=== PATIENT | male | born 1955 | race Caucasian/White ===

== ENCOUNTER → 2025-04-10 | Outpatient (CLI) | payer MEDICARE, BC, SELFPAY ==
--- NOTE | 2025-04-10 14:10 | RAD_ITS ---
PROCEDURE: ABDOMEN SINGLE VIEW 04/10/2025 REASON FOR EXAM: CALCULUS OF KIDNEY TECHNIQUE: Abdomen, two views COMPARISON: None FINDINGS: There are a proximally 7 calcific densities overlying the right renal shadow measuring up to 1 cm. There are at least 3 calcifications overlying the left kidney measuring up to 5 mm. No demonstrated calcifications along the expected course of either ureter or within the pelvis. Bowel-gas pattern is unremarkable with retained stool there is no evidence of free air. Bony structures show degenerative change RAD/Abdomen Single View IMPRESSION: Bilateral nephrolithiasis, largest stone in the right kidney measures a proxima lly 1 cm, largest in the left measures 0.5 cm No demonstrated calcifications along the expected course of either ureter Bony structures show degenerative change Reading Location: [id number]
[2025-04-10 15:39] LABS: PSA,Total - Annual Screen 2.38 ng/mL (0.02-4.00)
== END | disposition home or self-care (01) ==
LOC: RAD 13:57
PROVIDERS: PCP Family Medicine; Referring Provider Nurse Practitioner; Visit Provider Nurse Practitioner
DX: N20.0 Calculus of kidney (principal); Z12.5 Encounter for screening for malignant neoplasm of prostate
CPT/HCPCS: 36415; 74018; 84153; G0103

== ENCOUNTER 2025-04-25 10:55 | Day surgery (SDC) | payer MEDICARE, BC, SELFPAY ==
--- NOTE | 2025-04-13 14:43 | PAT.ANESEVAL ---
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 When Was Last Pacemaker Check QUESTION #4 FULL TEXT: You/Your Family Experience fever (hyperthermia) with Anesthesia Last Oral Intake Last Oral intake: Last Oral Intake NPO since Meds taken in AM with sips of water? Meds patient instructed to take am of surgery PONV PONV - mainspring winder and oiler: PONV - mainspring winder and oiler Female No 04/13/25 13:21 HX of Motion Sickness No 04/13/25 13:21 HX of N/V After Surgery No 04/13/25 13:21 Non-Smoker Yes 04/13/25 13:21 Duration of Surgery greater Yes 04/13/25 13:21 than 60 minutes Number of Risk Factors 2 04/13/25 13:21 PONV Score Moderate Risk 04/13/25 13:21 Respiratory Assessment Respiratory Assessment - mainspring winder and oiler: Respiratory Tract Infection Hx - mainspring winder and oiler Hx Respiratory Tract Infection No 04/13/25 13:21 STOP Sleep Apnea STOP Sleep Apnea - mainspring winder and oiler: STOP Sleep Apnea - mainspring winder and oiler Hx Hypertension Yes: CONTROLLED WITH MED 04/13/25 13:21 Hx Sleep Apnea Yes 04/13/25 13:21 CPAP Yes 04/13/25 13:21 BIPAP No 04/13/25 13:21 Do you snore loudly (louder than talking or can be heard Do you often feel tired/ fatigued/ sleepy during daytime? Has anyone observed you stop breathing during sleep? STOP Results Positive 04/13/25 13:21 QUESTION #5 FULL TEXT : Do you snore loudly (louder than talking or can be heard through closed doors)? 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 Specify any problems Hx of Preganancy in last 3 N/A 04/13/25 13:21 Months Nurse Filling Out Transfusion DSCHRIBER 04/13/25 13:21 & Questions: Date: 04/13/25 04/13/25 13:21 Time: :22 04/13/25 13:21 Patient unable to answer at this time (ie. confused, unrespo /Reproduction History /Reproductive History - mainspring winder and oiler: /Reproductive Hx- mainspring winder and oiler Hx Now No 04/13/25 13:21 Gestational Age (in weeks): EDC: Hx Hx Para Hx Section SAB No 04/13/25 13:21 [facility] Medical History (Updated 04/13/25 @ 13:33 by Vidya Maloney) Wears glasses Cancer Prostate disease High cholesterol Back pain Injury of back History of diverticulitis Gastric reflux Asthma Shortness of breath on exertion CPAP (continuous positive airway pressure) dependence Non-smoker History of edema History of stress test Cardiology follow-up encounter Hypertension Home Medications ?Medication ?Instructions ?Recorded ?Last Taken ?Type allopurinol 300 mg tablet 300 mg PO DAILY 04/13/25 Unknown History ascorbic acid (vitamin C) 500 mg 1 g PO DAILY 04/13/25 Unknown History tablet (C-500) atorvastatin 40 mg tablet 40 mg PO QHS 04/13/25 Unknown History cholecalciferol (vitamin D3) 125 125 mcg PO DAILY 04/13/25 Unknown History mcg (5,000 unit) tablet (Vitamin D3) clopidogrel 75 mg tablet 75 mg PO DAILY 04/13/25 Unknown History cyanocobalamin (vitamin B-12) 1,000 mcg PO DAILY 04/13/25 Unknown History 1,000 mcg capsule losartan 25 mg tablet 25 mg PO DAILY 04/13/25 Unknown History niacinamide 500 mg tablet 500 mg PO DAILY 08/15/25 Unknown History pantoprazole 40 mg tablet,delayed 40 mg PO DAILY 04/13/25 Unknown History release ropinirole 1 mg tablet 1 mg PO QHS 04/13/25 Unknown History Allergy/AdvReac Type Severity Reaction Status Date / Time sulfamethoxazole (From AdvReac Intermediate Nausea/Vom/ Verified 04/13/25 13:13 Bactrim) Diarrhea trimethoprim (From Bactrim) AdvReac Intermediate Nausea/Vom/ Verified 04/13/25 13:13 Diarrhea Surgical History (Updated 04/13/25 @ 13:33 by Vidya Maloney) History of cardiac catheterization History of esophagogastroduodenoscopy (EGD) Hx of colonoscopy History of coronary artery stent placement Social History Smoking Status: Never smoker Audit: Pertinent Findings Pertinent Findings EKG Perinent findings: 01/02/2020 Sinus bradycardia. Consider old Anterior infarct Stress test pertinent findings: 02/27/2021 Normal LV ejection fraction. No stress-induced ischemia. Echo (EF%) pertinent findings: 02/27/2021 Normal LV function. LVEF 50% Mild MR Normal Aortic & Tricuspid valve Recommendation Anesthesia Recommendation Anesthesia recommendation: OPTIMIZED for anesthesia
[2025-04-25] VITALS (9 sets, daily range): BP systolic 118–159; BP diastolic 41–85; PULSE 53–65; RESP 16–20; TEMP 35.9–36.3; O2SAT 95–100; BMI 36.1
--- NOTE | 2025-04-25 11:02 | RAD_ITS ---
EXAM: XR Abdomen, 1 View CLINICAL INDICATION: PREOP BILAT KIDNEY STONE TECHNIQUE: Frontal supine view of the abdomen/pelvis. COMPARISON: XR Abdomen dated 04/10/2025 FINDINGS: GASTROINTESTINAL TRACT: Unremarkable. No dilation. ORGANS: Bilateral renal pelvic calculi, largest measuring up to 10 mm. BONES/JOINTS: Unremarkable. No acute fracture. RAD/Abdomen Single View IMPRESSION: Bilateral renal pelvic calculi, largest measuring up to 10 mm. Reading Location: [id number]
[2025-04-25] MEDS: Lactated Ringers 1,000 ML 15 ML IV (12:12)
--- NOTE | 2025-04-25 12:40 | PCM.PRE.AN2 ---
ASA Classification* ASA Classification ASA Classification: 3 Assessment & Plan Anesthesia* Anesthesia Assessment Anesthesia Assessment: Discussed sedation and/or anesthesia options, risks, benefits, and alternatives with patient/parents/legal guardian/POA. Questions invited. The patient/parents/legal guardian/POA seems to understand and agrees to proceed with anesthesia plan. Reviewed the physical assessment, medical history, allergy history and patient home medications list prior to surgery/procedure/anesthetic and documented any changes. Performed airway and anesthesia risk assessments. 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 When Was Last Pacemaker Check QUESTION #4 FULL TEXT: You/Your Family Experience fever (hyperthermia) with Anesthesia Last Oral Intake Last Oral intake: Last Oral Intake NPO since 06:00 04/25/25 12:03 Meds taken in AM with sips of Yes 04/25/25 12:03 water? Meds patient instructed to LOSSARTAN,PROTONIX 04/25/25 12:03 take am of surgery PONV PONV - digital art director: PONV - digital art director Female No 04/13/25 13:21 HX of Motion Sickness No 04/13/25 13:21 HX of N/V After Surgery No 04/13/25 13:21 Non-Smoker Yes 04/13/25 13:21 Duration of Surgery greater Yes 04/13/25 13:21 than 60 minutes Number of Risk Factors 2 04/13/25 13:21 PONV Score Moderate Risk 04/13/25 13:21 Height & Weight Height & Weight: Anesthesia: Height & Weight Height 5 ft 9 in 04/25/25 12:03 Weight: 111 kg 04/25/25 12:03 Body Mass Index (BMI) 36.1 04/25/25 12:03 Respiratory Assessment Respiratory Assessment - digital art director: Respiratory Tract Infection Hx - digital art director Hx Respiratory Tract Infection No 04/13/25 13:21 STOP Sleep Apnea STOP Sleep Apnea - digital art director: STOP Sleep Apnea - digital art director Hx Hypertension Yes: CONTROLLED WITH MED 04/13/25 13:21 Hx Sleep Apnea Yes 04/13/25 13:21 CPAP Yes 04/13/25 13:21 BIPAP No 04/13/25 13:21 Do you snore loudly (louder than talking or can be heard Do you often feel tired/ fatigued/ sleepy during daytime? Has anyone observed you stop breathing during sleep? STOP Results Positive 04/13/25 13:21 QUESTION #5 FULL TEXT : Do you snore loudly (louder than talking or can be heard through closed doors)? 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 Specify any problems Hx of Preganancy in last 3 N/A 04/13/25 13:21 Months Nurse Filling Out Transfusion DSCHRIBER 04/13/25 13:21 & Questions: Date: 04/13/25 04/13/25 13:21 Time: 13:22 04/13/25 13:21 Patient unable to answer at this time (ie. confused, unrespo /Reproduction History /Reproductive History - digital art director: /Reproductive Hx- digital art director Hx Now No 04/13/25 13:21 Gestational Age (in weeks): EDC: Hx Hx Para Hx Section SAB No 04/13/25 13:21 Active Medications Active Medications: Current Medications Generic Name Dose Route Start Last Admin Trade Name Freq PRN Reason Stop Dose Admin Cefazolin Sodium 2 gm/ Sodium 110 mls @ 200 mls/hr 04/25/25 13:00 Chloride IV 04/25/25 13:32 INTRAOP ONE Lactated Ringer's 1,000 mls @ 15 mls/hr 04/25/25 11:15 04/25/25 12:12 IV 15 mls/hr .Q48H RAYA Administration PFSH Medical History (Updated 04/13/25 @ 13:33 by Vidya Maloney) Wears glasses Cancer Prostate disease High cholesterol Back pain Injury of back History of diverticulitis Gastric reflux Asthma Shortness of breath on exertion CPAP (continuous positive airway pressure) dependence Non-smoker History of edema History of stress test Cardiology follow-up encounter Hypertension Home Medications ?Medication ?Instructions ?Recorded ?Last Taken ?Type allopurinol 300 mg tablet 300 mg PO DAILY 04/13/25 04/24/25 History ascorbic acid (vitamin C) 500 mg 1 g PO DAILY 04/13/25 04/24/25 History tablet (C-500) atorvastatin 40 mg tablet 40 mg PO QHS 04/13/25 04/24/25 History cholecalciferol (vitamin D3) 125 125 mcg PO DAILY 04/13/25 04/24/25 History mcg (5,000 unit) tablet (Vitamin D3) clopidogrel 75 mg tablet 75 mg PO DAILY 04/13/25 04/18/25 History cyanocobalamin (vitamin B-12) 1,000 mcg PO DAILY 04/13/25 04/24/25 History 1,000 mcg capsule losartan 25 mg tablet 25 mg PO DAILY 04/13/25 04/25/25 History niacinamide 500 mg tablet 500 mg PO DAILY 04/13/25 04/24/25 History pantoprazole 40 mg tablet,delayed 40 mg PO DAILY 04/13/25 04/25/25 History release ropinirole 1 mg tablet 1 mg PO QHS 04/13/25 04/24/25 History Allergy/AdvReac Type Severity Reaction Status Date / Time sulfamethoxazole (From AdvReac Intermediate Nausea/Vom/ Verified 04/25/25 12:00 Bactrim) Diarrhea trimethoprim (From Bactrim) AdvReac Intermediate Nausea/Vom/ Verified 04/25/25 12:00 Diarrhea Surgical History (Updated 04/13/25 @ 13:33 by Vidya Maloney) History of cardiac catheterization History of esophagogastroduodenoscopy (EGD) Hx of colonoscopy History of coronary artery stent placement Social History Smoking Status: Never smoker Review of Systems (Anesthesia) ROS Narrative System reviewed and no additional complaints, except as documented.
[2025-04-25] MEDS: Lactated Ringers 1,000 ML 1000 ML IV (15:43)
[2025-04-25] MEDS: Midazolam 2 MG/2 ML Syringe IV (15:43)
--- NOTE | 2025-04-25 15:47 | DCINST_ITS ---
Discharge Instructions DC O2, CPAP, BIPAP needs Home O2 Discharge instructions: No Dressing / Incision Discharge Activity: Return to Normal Activity and May Not Drive (while taking narcotic pain medications.) Dressing / Incision Call your doctor if you observe: Fever of 101 or Higher and Uncontrolled pain Follow Up Care Please Follow Up With: Harjit Lam MD When: Call [phone] for an appointment Test Results: Test results from this visit will be discussed in further detail at your follow- up appointment, if applicable. Discharge Plan Admission Primary Reason for Your Visit: ESWL Attending Provider: Harjit Lam Primary Care Provider: Jarad Zamudio Instructions Print Language: Greenlandic Discharge Orders/Prescriptions Prescriptions: New ciprofloxacin HCl [Cipro] 500 mg tablet 500 mg PO BID Qty: 10 0RF tamsulosin [Flomax] 0.4 mg capsule 0.4 mg PO DAILY Qty: 14 0RF phenazopyridine [Pyridium] 100 mg tablet 100 mg PO TID Qty: 20 0RF oxycodone 5 mg tablet 5 mg PO Q6H PRN (Reason: pain) 3 Days Qty: 14 0RF Continued atorvastatin 40 mg tablet 40 mg PO QHS pantoprazole 40 mg tablet,delayed release (DR/EC) 40 mg PO DAILY ropinirole 1 mg tablet 1 mg PO QHS losartan 25 mg tablet 25 mg PO DAILY allopurinol 300 mg tablet 300 mg PO DAILY niacinamide 500 mg tablet 500 mg PO DAILY cyanocobalamin (vitamin B-12) 1,000 mcg capsule 1,000 mcg PO DAILY ascorbic acid (vitamin C) [C-500] 500 mg tablet 1 g PO DAILY cholecalciferol (vitamin D3) [Vitamin D3] 125 mcg (5,000 unit) tablet 125 mcg PO DAILY Held clopidogrel 75 mg tablet 75 mg PO DAILY Hold Instructions: Resume on 05/02/25. Referrals / Follow Up: Jarad Zamudio MD [Primary Care Provider] - Harjit Lam MD [Med Staff - Active Staff] - Disposition Disposition (needs filled in before D/C Order can be placed): Home, Self Care
[2025-04-25] MEDS: fentaNYL 100 MCG/2 ML Ampul IV (15:48)
[2025-04-25] MEDS: Lidocaine 1% (5 ml sdv) 5 ML Vial IV (15:48)
[2025-04-25] MEDS: Cefazolin 1 GM/5 ML Vial 2 GM IV (15:50)
--- NOTE | 2025-04-25 16:20 | PCM.OPRPT ---
Operative Report (Standard) Operative Information Date of Procedure: 04/25/25 Pre-Operative Diagnosis: Right kidney stones Post-Operative Diagnosis: same Surgery/Procedure Performed: Cystoscopy right stent placement and right ESWL civil clerk: No Type of Anesthesia: General RN Documented Start/Stop Times: Operation Date: 04/25/25 13:00 Case Time Into Pre-Op 04/25/25 11:12 Out of Pre-Op 04/25/25 15:38 Anesthesia Start 04/25/25 15:42 Into Room 04/25/25 15:42 Procedure Start 04/25/25 15:56 Procedure Start Time: 15:56 Procedure Stop Time: 16:36 Select all DRAINS/GRAFTS/IMPLANTS that apply: Drains Drain details: right stent Estimated Blood Loss: 0 Specimen collected: No Description of surgery: Patient presents to the hospital for treatment of a kidney stone with shockwave lithotripsy. In the preoperative area and x-ray was done to confirm the location of the stone. The x-ray was reviewed and the stone location was reviewed. In the preoperative setting I spoke with the patient regarding the treatment of the stone how the treatment would be conducted and the expectations after surgery. The patient understands there is a risk of bleeding and infection. Also discussed the very rare risk of hematoma or damage to the kidney. We also discussed the risk that the shockwave machine will fail to break the stone adequately and that the patient may need other surgical procedures. I also discussed the possibility that the patient may need a stent after the procedure. After reviewing the procedure with the patient, the patient is signed the consent form all the patient's questions were addressed and was taken back to the operating room for treatment of a kidney stone. Patient was taken back to the operating room, the patient was identified by the nursing staff, I identified the side of the treatment and the patient side of treatment had been marked by my initials. The urethra and genitals were prepped and draped in usual sterile fashion. Using a 21 Nauruan rigid cystourethroscope the entire length of the urethra was normal then went into the bladder. Identified the trigone the left and right ureteral orifice. I then cannulated the right ureteral orifice and advanced a wire up into the kidney. I then backloaded a 5 Nauruan open ended catheter over the wire and injected contrast to delineate the anatomy. After the retrograde was performed I then used fluoroscopic images and guidance to advanced a wire up into the kidney and over the 0.038 glidewire I advanced a 6 Nauruan by 26 cm double pigtail stent. I then pulled the 0.038 Glidewire off and the stent coiled in the kidney bladder good position. The bladder was then drained. We confirmed the position of the stent by fluoroscopy. The patient underwent general anesthetic and was placed supine on the lithotripter table. I then used fluoroscopy to identify the stone on the right kidney. I then positioned the patient under the lithotripter and I used triangulation technique to identify the location of the stone and then I made sure that the stone was engaged in the F2 focal point of F2 Donier lithoprior machine. Once the patient was positioned appropriately and the stone was identified and placed in the F2 focal point of the lithotripter machine I then proceeded with shockwave lithotripsy. In the beginning the shockwave was delivered at a rate of 90 shocks per minute, anesthesia monitored the EKG for any ectopy. The power was slowly increased to 5 kV and subsequently at the 7 kV. I then proceeded with the treatment with shock wave therapy and around during the treatment to make sure the stone stayed in the F2 focal point during the entire treatment and after 3000 shockwaves were delivered to the stone under fluoroscopic guidance the treatment was completed. The patient was given instructions to call the office to make an a follow-up appointment with an x-ray to evaluate the success of the treatment, patient understands that its possible the stones may need another procedure. At this point the patient's anesthetic was reversed patient was extubated and taken back to the PACU in stable condition. Surgical Findings: stone broke up well could still see many fragments, and right stent Complications Complications: No Admit VTE Documentation VTE Present on Admission: No VTE Mechan Device Prophylaxis: SCD's VTE Pharm Prophylaxis ordered?: No
--- NOTE | 2025-04-25 16:47 | PCM.POST.ANE ---
Anesthesia: Postop Eval I Current Vital Signs Temperature: 96.6 F Pulse Rate: 65 Blood Pressure: 159/77 Respiratory Rate: 20 Pulse Ox: 99 Oxygen Delivery Method: Room Air Assessment Airway patent: Yes Spontaneous unlabored respirations: Yes Mental status: Awake nausea: No Vomiting: No Anesthesia Complication: No Fluid Hydration Crystalloid volume administer (ml): 900 Total IV fluid infused: 900 Progress Note Anesthesia document: Postop Eval 1 completed: Yes
--- NOTE | 2025-04-25 18:11 | POSTOPAN2_ITS ---
Anesthesia Postop Eval I Sum Postop Eval Completion status Anesthesia document: Postop Eval 1 completed: Yes Anesthesia Postop Eval I Summary Anesthesia Postop Eval I Summary: Anesthesia Postop Eval I: Assessment Summary Airway patent Yes 04/25/25 16:48 [email or web address] Spontaneous unlabored Yes 04/25/25 16:48 [email or web address] respirations Mental status Awake 04/25/25 16:48 [email or web address] nausea No 04/25/25 16:48 [email or web address] Vomiting No 04/25/25 16:48 [email or web address] Anesthesia Postop Eval I: Fluid Summary Crystalloid volume administer 900 04/25/25 16:48 [email or web address] (ml) Colloids volume administered ( ml) Blood Product volume administered (ml) Total IV fluid infused 900 04/25/25 16:48 [email or web address] Anesthesia Postop Eval I: Summary Notes Anesthesia Complication No 04/25/25 16:48 [email or web address] Anesthesia Complication Comment: Post-operative progress note Anesthesia: Postop Eval II Evaluation Mental status: Awake Pain Level: 0 nausea: No Vomiting: No Complications Anesthesia Complication: No
--- NOTE | 2025-04-25 18:11 | PCM.POSTANE2 ---
Anesthesia Postop Eval I Sum Postop Eval Completion status Anesthesia document: Postop Eval 1 completed: Yes Anesthesia Postop Eval I Summary Anesthesia Postop Eval I Summary: Anesthesia Postop Eval I: Assessment Summary Airway patent Yes 04/25/25 16:48 AUTOMATION DESIGN [email or web address] Spontaneous unlabored Yes 04/25/25 16:48 AUTOMATION DESIGN [email or web address].[email or web address] respirations Mental status Awake 04/25/25 16:48 AUTOMATION DESIGN [email or web address] nausea No 04/25/25 16:48 AUTOMATION DESIGN ENGINEER.[email or web address] Vomiting No 04/25/25 16:48 AUTOMATION DESIGN [email or web address].[email or web address] Anesthesia Postop Eval I: Fluid Summary Crystalloid volume administer 900 04/25/25 16:48 AUTOMATION DESIGN [email or web address] (ml) Colloids volume administered ( ml) Blood Product volume administered (ml) Total IV fluid infused 900 04/25/25 16:48 AUTOMATION DESIGN [email or web address] Anesthesia Postop Eval I: Summary Notes Anesthesia Complication No 04/25/25 16:48 AUTOMATION DESIGN [email or web address] Anesthesia Complication Comment: Post-operative progress note Anesthesia: Postop Eval II Evaluation Mental status: Awake Pain Level: 0 nausea: No Vomiting: No Complications Anesthesia Complication: No
== END 2025-04-25 18:09 | disposition home or self-care (01) ==
LOC: SDC 10:57 → AC 11:06
PROVIDERS: PCP Family Medicine; Referring Provider Urology; Visit Provider Urology
PROC: (CPT 50590; principal; 2025-04-25 12:50)
DX: N13.2 Hydronephrosis with renal and ureteral calculous obstruction (principal); N40.1 Benign prostatic hyperplasia with lower urinary tract symptoms; R39.14 Feeling of incomplete bladder emptying; I10 Essential (primary) hypertension; Z95.5 Presence of coronary angioplasty implant and graft; Z79.02 Long term (current) use of antithrombotics/antiplatelets; Z79.899 Other long term (current) drug therapy
CPT/HCPCS: 52332; 00910; 74018; C1769; C2617; J2405

== ENCOUNTER 2025-05-05 09:48 | Observation (INO) | payer MEDICARE, BC, SELFPAY ==
[2025-05-05] VITALS (13 sets, daily range): BP systolic 120–160; BP diastolic 60–83; PULSE 62–82; RESP 16–18; TEMP 36–37; O2SAT 95–100; BMI 36.0
--- OUTSIDE RECORDS SUMMARY | 2025-05-05 04:25 | XMS RPT_ITS | CCD ---
Author Organization [facility] CliniSyga Care Team Providers Care Assistant Professor Of German Name Role Phone Aramis Beaulieu Unavailable BARRETO, TRACE ETIENNE Unavailable Unavailable EBAULIEU, CHRISTOPHER OSCAR Unavailable Unavaila ble BARRETO, TRACE ETIENNE Unavailable Unavailable BEAULIEU, CHRISTOPHER OSCAR Unavailable Unavaila ble BARRETO, TRACE ETIENNE Unavailable Unavailable BEAULIEU, CHRISTOPHER OSCAR Unavailable Unavaila ble BEAULIEU, CHRISTOPHER Unavailable Unavailable BEAULIEU, CHRISTOPHER Unavailable Unavailable JUSTUS Unavailable Unavailable JUSTUS Unavailable Unavailable BEAULIEU, CHRISTOPHER Unavailable Unavailable Beaulieu, Christopher Unavailable Unavailable Beaulieu, Christopher Unavailable Unavailable Barreto, Trace Unavailable Unavailable Barreto, Trace Unavailable Unavailable Beaulieu, Christopher Unavailable Unavailable Beaulieu, Christopher Unavailable Unavailable Ivanauskas, Saulius Unavailable Unavailable Ivanauskas, Saulius Unavailable Unavailable Beaulieu, Christopher Unavailable Unavailable Davi, Gagan Bin Unavailable Unavailable Davi, Gagan Bin Unavailable Unavailable Bazan, Isabela W Unavailable Unavailable Beaulieu, Christopher Unavailable Unavailable Beaulieu, Christopher Unavailable Unavailable Ivanauskas, Saulius Unavailable Unavailable Ivanauskas, Saulius Unavailable Unavailable Bazan, Isabela W Unavailable Unavailable Bazan, Isabela W Unavailable Unavailable Beaulieu, Christopher Unavailable Unavailable Bazan, Isabela W Unavailable Unavailable Bazan, Isabela W Unavailable Unavailable Beaulieu, Christopher Unavailable Unavailable Beaulieu, Christopher Unavailable Unavailable Bazan, Isabela W Unavailable Unavailable Bazan, Isabela W Unavailable Unavailable Beaulieu, Christopher Unavailable Unavailable Beaulieu, Christopher Unavailable Unavailable Bazan, Isabela W Unavailable Unavailable Bazan, Isabela W Unavailable Unavailable Beaulieu, Christopher Unavailable Unavailable Bazan, Isabela W Unavailable Unavailable Beaulieu, Christopher Unavailable Unavailable Bazan, Isabela W Unavailable Unavailable Bazan, Isabela W Unavailable Unavailable Beaulieu, Christopher Unavailable Unavailable Bazan, Isabela W Unavailable Unavailable Beaulieu, Christopher Unavailable Unavailable Bazan, Isabela W Unavailable Unavailable Bazan, Isabela W Unavailable Unavailable Beaulieu, Christopher Unavailable Unavailable Bazan, Isabela W Unavailable Unavailable Beaulieu, Christopher Unavailable Unavailable Beaulieu, Christopher Unavailable Unavailable Beaulieu, Christopher Unavailable Unavailable Beaulieu, Christopher Unavailable Unavailable Beaulieu, Christopher Unavailable Unavailable Pandrangi, Esa Unavailable Unavailable Pandrangi, Esa Unavailable Unavailable Family Physician Unavailable Unavailable Celine vailable Family Physician Unavailable Unavailable Celine vailable PANDRANGI, ESA Unavailable Unavailable Rey, Jarad Primary Care Provider Robb Jarad Primary Care Provider Robb SKY Jarad Primary Care Provider Robb SKY Jarad Primary Care Provider Balta Reyo Unavailable Robb SKY Jarad Primary Care Provider Robb SKY Jarad Primary Care Provider Aramis Beaulieu MD Primary Care Provider JUSTIN OROZCO Admitting Unavailable ARAMIS BEAULIEU Primary Care Unavaila ble REY, JARAD Primary Care Unavailable YASMANY SMITH Admitting Unavailable YASMANY SMITH Attending Unavailable Robb SKY Jarad Primary Care Provider REY, JARAD Primary Care Unavailable REY, JARAD Primary Care Unavailable Robb SKY Jarad Primary Care Provider BAZANISABELA Gil W Attending Unavailable REY, JARAD Primary Care Unavailable REY, JARAD Primary Care Unavailable BAZANISABELA W Attending Unavailable REY, JARAD Primary Care Unavailable BAZANISABELA W Attending Unavailable REY, JARAD Primary Care Unavailable BAZAN, ISABELA W Attending Unavailable REY, JARAD Primary Care Unavailable BAZAN, ISABELA W Attending Unavailable REY, JARAD Primary Care Unavailable BAZAN, ISABELA W Attending Unavailable REY, JARAD Primary Care Unavailable ISABELA BAZAN Attending Unavailable REY, JARAD Primary Care Unavailable Robb SKY, [facility] Primary Care Provider REY, JARAD Primary Care Unavailable ZAK ALVAREZ Attending Unavailable ISABELA BAZAN Referring Unavailable REY, JARAD Primary Care Unavailable REY, JARAD Referring Unavailable REY, JARAD Primary Care Unavailable KAYLYNN ASHTON Attending Unavailable KAYLYNN ASHTON Referring Unavailable REY, JARAD Primary Care Unavailable Robb SKY, Dr. Abraham Primary Care Provider [phone] [place] Attending Provider [phone] [place], Melba Referring Provider [phone] [place] SKY, Dr. Harjit Simms Attending Provider [place] SKY, Dr. Harjit Simms Referring Provider Rey, Jarad Primary Care Unavailable Harjit Lam Referring Unavailable Harjit Lam Attending Unavailable [place], Melba Attending Unavailable Rey, Jarad Primary Care Unavailable [place], Melba Referring Unavailable Allergies Allergy Classification Reported Allergen(s) Allergy Type Date of Onset Reaction(s) Facility (1 source) No Known Allergies; Translations: [No Known Allergies] Propensity to adverse reactions to drug (disorder) [facility] Repository (1 source) No Known Medication Allergies; Translations: [No Known Medication Allergies] Propensity to adverse reactions to drug (disorder) [facility] Repository (2 sources) Sulfamethoxazole / Trimethoprim Drug Allergy 04-11-20 25 Nausea Only, Other, Drowsiness [facility] (2 sources) Sulfamethoxazole Drug Allergy 04-13-20 25 Nausea/Vom/[facility] (2 sources) Trimethoprim Drug Allergy 04-13-20 25 Nausea/Vom/[facility] (1 source) Sulfamethoxazole Drug Allergy 04-25-20 [facility] Repository (1 source) Trimethoprim Drug Allergy 04-25-20 [facility] Repository Medications Current Medications Medication Drug Class(es) Dates Sig (Normalized) Sig (Original) acetaminophen 325 mg / oxyCODONE hydrochloride 5 mg oral tablet (1 source) Opioid Agonist Start: 07-02-2021 End: 07-05-2021 take 1 tablet by mouth every six hours as needed for pain oxyCODONE-acetami nophen (PERCOCET) 5-325 MG per tablet Indications: Fall from ladder, initial encounter , Lumbar paraspinal muscle spasm Take 1 tablet by mouth every 6 hours as needed for Pain for up to 3 days. 12 tablet 0 07/02/2021 07/05/2021 Active [id number] actuat albuterol 0.09 mg/actuat metered dose inhaler (16 sources) beta2-Adrenergic Agonist Start: 06-11-2023 Ventolin HFA 90 mcg/actuation inhaler 06/11/2023 Active Start: 06-11-2023 take 2 puff(s) by in halation four times daily as needed for wheezing albuterol sulfate HFA (VENTOLIN HFA) 108 (90 Base) MCG/ACT inhaler Indications: Mild intermittent asthma without complication Inhale 2 puffs into the lungs 4 times daily as needed for Wheezing 18 g 06/11/2023 Active allopurinol 300 mg oral tablet (20 sources) Xanthine Oxidase Inhibitor Start: 06-11-2023 allopurinol (Zylopri m) 300 mg tablet 02/06/2024 Active Start: 05-25-2015 allopurinol (Z YLOPRIM) 300 MG tablet Indications: Gout, unspecified cause, unspecified chronicity, unspecified site TAKE 1 TABLET DAILY 90 tablet 3 03/09/2022 Active ascorbic acid 500 mg oral tablet (19 sources) Start: 04-13-2025 take 1 tablet by mouth once daily Ascorbic Acid (Vitamin C) (C-500) 500 mg tablet Active 1 g PO DAILY April 13, 2025 12:00am vitamin C (ASCOR BIC ACID) 500 MG tablet Take 1 tablet by mouth Active vitamin C (ASCOR BIC ACID) 500 MG tablet Take 500 mg by mouth 0 Active aspirin 81 mg delayed release oral tablet (16 sources) Nonsteroidal Anti-inflammatory Drug take 1 tablet by mouth once daily aspirin 81 MG EC tablet Take 1 tablet by mouth daily Active atorvastatin 40 mg oral tablet (20 sources) HMG-CoA Reductase Inhibitor Start: 05-17-20 atorvastatin (Lipitor) 40 mg tablet 05/17/2023 Active Start: 03-09-2022 atorvastatin ( LIPITOR) 20 MG tablet Indications: Coronary artery disease involving [place] coronary artery of [place] heart without angina pectoris TAKE 1 TABLET NIGHTLY 90 tablet 3 03/09/2022 Active Start: 06-12-2021 atorvastatin ( LIPITOR) 20 MG tablet Indications: Coronary artery disease involving [place] coronary artery of [place] heart without angina pectoris TAKE 1 TABLET NIGHTLY 90 tablet 3 06/12/2021 Active Start: 06-10-2020 atorvastatin ( LIPITOR) 20 MG tablet Indications: Coronary artery disease involving [place] coronary artery of [place] heart without angina pectoris TAKE 1 TABLET NIGHTLY 90 tablet 3 06/10/2020 Active Start: 2018 take 1 tablet by cuco th once daily atorvastatin (LIPITOR) 20 MG tablet Take 1 tablet by mouth nightly 90 tablet 3 2018 Active Start: 05-04-2017 atorvastatin ( LIPITOR) 20 MG tablet TAKE 1 TABLET DAILY 90 tablet 0 05/04/2017 Active Start: 06-04-2015 End: 05-05-2016 take 1 tablet by mouth once daily atorvastatin (LIPITOR) 20 MG tablet Take 1 tablet (20 mg total) by mouth daily. 90 tablet 3 06/04/2015 05/05/2016 Discontinued (Reorder (Suppress CancelRx Message to Pharmacy)) B Complex Vitamins (VITAMIN B COMPLEX PO) (16 sources) B Complex Vitami ns (VITAMIN B COMPLEX PO) Take 1 tablet by mouth Active B Complex Vitami ns (VITAMIN B COMPLEX PO) Take 1 tablet by mouth 0 Active calcium chloride 0.0014 meq/ml / potassium chloride 0.004 meq/ml / sodium chloride 0.103 meq/ml / sodium lactate 0.028 meq/ml injectable solution (1 source) Start: 09-14-2019 lactated ringers infusion cephalexin 500 mg oral capsule (4 sources) Cephalosporin Antibacterial Start: 11-09-2023 End: 11-19-2023 take 1 capsule by mouth four times daily cephalexin (Keflex) 500 mg capsule Indications: Urinary retention , Urinary tract infection with hematuria, site unspecified Take 1 capsule (500 mg) by mouth 4 times a day for 10 days. 40 capsule 0 11/09/2023 11/19/2023 Active cholecalciferol 0.125 mg oral tablet (19 sources) Vitamin D Start: 04-13-2025 take 1 tablet by mouth once daily Cholecalciferol (Vitamin D3) (Vitamin D3) 125 mcg (5,000 unit) tablet Active 125 ug PO DAILY April 13, 2025 12:00am Cholecalciferol (VITAMIN D3) 5000 units CAPS Take 1 capsule by mouth Active take 5 tablets by mouth once jose maria ly cholecalciferol, vitamin D3, 1,000 unit tablet Take 5,000 Units by mouth daily. Active ciprofloxacin 500 mg oral tablet (4 sources) Quinolone Antimicrobial Start: 04-25-2025 take 1 tablet by mouth twice daily Ciprofloxacin Hcl (Cipro) 500 mg tablet Active 500 mg PO TWICE A DAY 10 0 April 25, 2025 12:00am Start: 03-25-2025 End: 03-26-2025 400 mg, intravenous, at 200 mL/hr, Administer over 60 Minutes, Once, On 03/25/25 at 2330, For 1 dose, premix bag, Dosing of this medication varies based on severity of illness. Does this patient have sepsis or concern for sepsis (probable or documented infection plus systemic manifestations of infection)? Yes, Suspected Indication (Select all that apply): Urinary Tract Infection, Type of Therapy: Empiric, Type of Urinary Tract Infection: Uncomplicated, Indications: Urinary Tract Infection Start: 03-25-2025 End: 04-01-2025 take 1 tablet by mouth twice daily ciprofloxacin (Cipro) 500 mg tablet Indications: Hemorrhagic cystitis Take 1 tablet (500 mg) by mouth 2 times a day for 7 days. 14 tablet 03/25/2025 04/01/2025 Active Start: 11-01-2023 End: 11-04-2023 take 1 tablet by mouth twice daily ciprofloxacin (Cipro) 250 mg tablet Indications: Hematuria, unspecified type Take 1 tablet (250 mg) by mouth 2 times a day for 3 days. 6 tablet 0 11/01/2023 11/04/2023 Active clopidogrel 75 mg oral tablet (20 sources) [id number] Platelet Inhibitor Start: 08-04-2024 take 1 tablet by mouth once daily Clopidogrel 75 mg tablet Active 75 mg PO DAILY April 13, 2025 12:00am On Hold: Resume on 05/02/25. Start: 06-11-2023 clopidogrel (P LAVIX) 75 MG tablet Indications: Coronary artery disease involving [place] coronary artery of [place] heart without angina pectoris TAKE 1 TABLET DAILY 90 tablet 3 06/11/2023 Active Start: 03-09-2022 clopidogrel (P LAVIX) 75 MG tablet Indications: Coronary artery disease involving [place] coronary artery of [place] heart without angina pectoris TAKE 1 TABLET DAILY 90 tablet 3 03/09/2022 Active Start: 06-12-2021 clopidogrel (P LAVIX) 75 MG tablet Indications: Coronary artery disease involving [place] coronary artery of [place] heart without angina pectoris TAKE 1 TABLET DAILY 90 tablet 3 06/12/2021 Active Start: 06-10-2020 clopidogrel (P LAVIX) 75 MG tablet Indications: Coronary artery disease involving [place] coronary artery of [place] heart without angina pectoris TAKE 1 TABLET DAILY 90 tablet 3 06/10/2020 Active Start: 2018 take 1 tablet by cuco th once daily clopidogrel (PLAVIX) 75 MG tablet Take 1 tablet by mouth daily 90 tablet 3 2018 Active Start: 05-13-2017 take 1 tablet by cuco th once daily clopidogrel (PLAVIX) 75 mg tablet Take 1 (one) tablet (75 mg total) by mouth daily. 90 tablet 3 05/13/2017 Active Start: 06-17-2015 End: 05-17-2016 take 1 tablet by mouth once daily clopidogrel (PLAVIX) 75 mg tablet Take 1 tablet (75 mg total) by mouth daily. 90 tablet 3 06/17/2015 05/17/2016 Discontinued (Reorder (Suppress CancelRx Message to Pharmacy)) Start: 03-15-2015 End: 06-10-2015 clopidogrel (PLAVIX) 75 mg t ablet CPAP Machine MISC (20 sources) Start: 03-06-2022 CPAP Machine M ISC Indications: BUCK on CPAP by Does not apply route CPAP nightly at 12 cm H20 with heated humidification via nasal airfit f30i mask in large with chin strap. STAT severe sleep apnea 1 each 03/06/2022 Active Start: 03-06-2022 CPAP Machine M ISC Indications: BUCK on CPAP by Does not apply route CPAP nightly at 12 cm H20 with heated humidification via nasal airfit f30i mask in large with chin strap. STAT severe sleep apnea 1 each 0 03/06/2022 Active CPAP Machine MIS C by Does not apply route Active CPAP Machine MIS C by Does not apply route 0 Active cyclobenzaprine hydrochloride 10 mg oral tablet (5 sources) Muscle Relaxant Start: 12-16-2023 End: 12-26-2023 take 0.5 tablet by mouth three times daily cyclobenzaprine (Flexeril) 10 mg tablet Indications: History of kidney stones Take 0.5 tablets (5 mg) by mouth 3 times a day for 10 days. 15 tablet 12/16/2023 Active diazePAM 5 mg oral tablet (1 source) Benzodiazepine Start: 06-25-2021 End: 07-05-2021 take 1 tablet by mouth every six hours as needed for muscle spasms diazePAM (VALIUM) 5 MG tablet Indications: Fall from ladder, initial encounter , Lumbar paraspinal muscle spasm Take 1 tablet by mouth every 6 hours as needed (muscle spasm) for up to 10 days. 16 tablet 0 06/25/2021 07/05/2021 Active diclofenac sodium 50 mg delayed release oral tablet (5 sources) Nonsteroidal Anti-inflammatory Drug Start: 06-12-2021 diclofenac (VOLTAREN) 50 MG EC tablet Indications: Acute pain of both knees Take 1 tablet by mouth every 48 hours as needed for Pain 30 tablet 0 06/12/2021 Active 24 hr dilTIAZem hydrochloride 120 mg extended release oral capsule (8 sources) Calcium Channel Deep Start: 07-11-2020 dilTIAZem (CARTIA XT) 120 MG extended release capsule Indications: PVC (premature ventricular contraction) TAKE 1 CAPSULE DAILY 90 capsule 3 07/11/2020 Active Start: 05-14-2020 CARTIA XT 120 MG extended release capsule Indications: PVC (premature ventricular contraction) TAKE 1 CAPSULE DAILY 90 capsule 3 05/14/2020 Active Start: 06-07-2019 take 1 capsule by mo ut once daily diltiazem (CARDIZEM CD) 120 MG extended release capsule Indications: PVC (premature ventricular contraction) Take 1 capsule by mouth daily 90 capsule 3 06/07/2019 Active Start: 05-03-2019 take 1 capsule by mo uth once daily diltiazem (CARDIZEM CD) 120 MG extended release capsule Indications: PVC (premature ventricular contraction) Take 1 capsule by mouth daily 30 capsule 3 05/03/2019 Active doxycycline hyclate 100 mg oral capsule (2 sources) Tetracycline-class Drug Start: 06-10-2021 doxycycline hyclate (VIBRAMYCIN) 100 MG capsule fluorouracil 50 mg/ml topical cream (2 sources) Nucleoside Metabolic Inhibitor Start: 04-24-2024 fluorouracil (EFUDEX) 5 % cream APPLY CREAM TO THE AFFECTED AREAS OF THE SCALP AND LEFT MU-ISM TWICE DAILY FOR 3 WEEKS 04/24/2024 Active hyoscyamine sulfate 0.12 mg / methenamine 81.6 mg / methylene blue 10.8 mg / sodium phosphate, monobasic 40.8 mg oral tablet (9 sources) Oxidation-Reduction Agent Start: 11-10-2023 methen-sod phos-meth blue-hyos (Urogesic-Blue) 81.6-40.8-0.12 mg tablet Indications: Dysuria Take 1 tab BID 60 tablet 3 11/10/2023 Active ibuprofen 600 mg oral tablet (4 sources) Nonsteroidal Anti-inflammatory Drug Start: 06-25-2021 take 1 tablet by mouth every six hours as needed for pain ibuprofen (IBU) 600 MG tablet Take 1 tablet by mouth every 6 hours as needed for Pain 120 tablet 0 06/25/2021 Active losartan potassium 25 mg oral tablet (20 sources) Angiotensin 2 Receptor Deep Start: 06-11-2023 losartan (Cozaar) 25 mg tablet 02/06/2024 Active Start: 03-09-2022 losartan (COZA AR) 25 MG tablet Indications: Coronary artery disease involving [place] coronary artery of [place] heart without angina pectoris TAKE 1 TABLET DAILY 90 tablet 3 03/09/2022 Active Start: 06-12-2021 losartan (COZA AR) 25 MG tablet Indications: Coronary artery disease involving [place] coronary artery of [place] heart without angina pectoris TAKE 1 TABLET DAILY 90 tablet 3 06/12/2021 Active Start: 06-10-2020 losartan (COZA AR) 25 MG tablet Indications: Coronary artery disease involving [place] coronary artery of [place] heart without angina pectoris TAKE 1 TABLET DAILY 90 tablet 3 06/10/2020 Active Start: 2018 take 1 tablet by cuco th once daily losartan (COZAAR) 25 MG tablet Take 1 tablet by mouth daily 90 tablet 3 2018 Active Start: 05-13-2017 take 1 tablet by cuco th once daily losartan (COZAAR) 25 MG tablet Take 1 (one) tablet (25 mg total) by mouth daily. 90 tablet 3 05/13/2017 Active Start: 06-17-2015 End: 05-17-2016 take 1 tablet by mouth once daily losartan (COZAAR) 25 MG tablet Take 1 tablet (25 mg total) by mouth daily. 90 tablet 3 06/17/2015 05/17/2016 Discontinued (Reorder (Suppress CancelRx Message to Pharmacy)) Start: 03-15-2015 End: 06-10-2015 losartan (COZAAR) 25 MG tabl et magnesium sulfate 0.0277 meq/ml / potassium sulfate 0.0374 meq/ml / sodium sulfate 0.257 meq/ml oral solution (6 sources) Start: 08-10-2019 Na Sulfate-K S ulfate-Mg Sulf 17.5-3.13-1.6 GM/177ML SOLN Indications: History of colon polyps As directed 1 Bottle 0 08/10/2019 Active Misc. Devices MISC (16 sources) Start: 05-06-2018 Misc. Devices MISC Indications: BUCK on CPAP Full face mask, tubing, and heater. 1 Device 05/06/2018 Active Start: 05-06-2018 Misc. Devices MISC Indications: BUCK on CPAP Full face mask, tubing, and heater. 1 Device 0 05/06/2018 Active niacin 500 mg extended release oral capsule (16 sources) Nicotinic Acid take 1 capsule by mouth once daily niacin 500 MG extended release capsule Take 1 capsule by mouth nightly Active niacinamide 500 mg oral tablet (2 sources) Start: 04-13-20 take 1 tablet by mouth once daily Niacinamide 500 mg tablet Active 500 mg PO DAILY April 13, 2025 12:00am nitroglycerin 0.4 mg sublingual tablet (18 sources) Nitrate Vasodilator Start: 06-11-20 nitroGLYCERIN (NITROSTAT) 0.4 MG SL tablet Indications: Coronary artery disease involving [place] coronary artery of [place] heart without angina pectoris Place 1 tablet under the tongue every 5 minutes as needed for Chest pain 25 tablet 06/11/2023 Active Start: 06-15-2022 nitroGLYCERIN (NITROSTAT) 0.4 MG SL tablet Indications: Coronary artery disease involving [place] coronary artery of [place] heart without angina pectoris Place 1 tablet under the tongue every 5 minutes as needed for Chest pain 25 tablet 0 06/15/2022 Active Start: 04-23-2015 nitroGLYCERIN (NITROSTAT) 0.4 MG SL tablet Indications: Coronary artery disease involving [place] coronary artery of [place] heart without angina pectoris Place 1 tablet under the tongue every 5 minutes as needed for Chest pain 25 tablet 0 06/12/2021 Active oxyCODONE hydrochloride 5 mg oral tablet (1 source) Opioid Agonist Start: 04-25-2025 take 1 tablet by mouth every six hours as needed for pain Oxycodone 5 mg tablet Active 5 mg PO EVERY 6 HOURS as needed for pain 14 3 0 April 25, 2025 Calculus of kidney Calculus of kidney pantoprazole 40 mg delayed release oral tablet (20 sources) Proton Pump Inhibitor Start: 06-11-2023 pantoprazole (ProtoNix) 40 mg EC tablet 02/06/2024 Active Start: 05-25-2015 pantoprazole ( PROTONIX) 40 MG tablet Indications: Gastroesophageal reflux disease, unspecified whether esophagitis present TAKE 1 TABLET DAILY 90 tablet 3 03/09/2022 Active phenazopyridine hydrochloride 100 mg oral tablet (2 sources) Start: 04-25-2025 take 1 tablet by mouth three times daily Phenazopyridine (Pyridium) 100 mg tablet Active 100 mg PO THREE TIMES A DAY 20 April 25, 2025 12:00am Start: 11-09-2023 End: 11-09-2023 phenazopyridine (Pyridium) t ablet 200 mg Respiratory Therapy Supplies SHAHRIAR (10 sources) Start: 02-17-2023 Respiratory Th erapy Supplies SHAHRIAR Indications: BUCK on CPAP New CPAP mask , tubing and supplies 1 each 02/17/2023 Active Start: 05-06-2021 Respiratory Th erapy Supplies SHAHRIAR Indications: BUCK on CPAP Auto PAP with mask and tubing 1 each 05/06/2021 Active Start: 05-06-2021 Respiratory Th erapy Supplies SHAHRIAR Indications: BUCK on CPAP Auto PAP with mask and tubing 1 each 0 05/06/2021 Active rOPINIRole 1 mg oral tablet (20 sources) Nonergot Dopamine Agonist Start: 06-11-2023 rOPINIRole (Requip) 1 mg tablet 02/06/2024 Active Start: 05-25-2015 rOPINIRole (RE QUIP) 1 MG tablet Indications: Restless leg TAKE 1 TABLET NIGHTLY 90 tablet 3 03/09/2022 Active 1000 ml sodium chloride 9 mg/ml injection (4 sources) Start: 05-04-2025 End: 05-05-2025 take 150 mL intravenously every hour 150 mL/hr, intravenous, Continuous, Starting on Wed05/04/25 at 2210, For 1 day Start: 03-25-2025 End: 03-25-2025 1,000 mL, intravenous, at 99 9 mL/hr, Administer over 1 Hours, Once, On 03/25/25 at 2150, For 1 dose Start: 02-27-2021 End: 02-27-2021 sodium chloride flush 0.9 % injection 10 mL tamsulosin hydrochloride 0.4 mg oral capsule (12 sources) alpha-Adrenergic Deep Start: 04-25-2025 take 1 capsule by mouth once daily Tamsulosin (Flomax) 0.4 mg capsule Active 0.4 mg PO DAILY 14 0 April 25, 2025 12:00am Start: 11-08-2023 End: 11-07-2024 take 1 capsule by mouth once daily tamsulosin (Flomax) 0.4 mg 24 hr capsule Indications: Nocturia , Benign prostatic hyperplasia with lower urinary tract symptoms, symptom details unspecified Take 1 capsule (0.4 mg) by mouth once daily. 30 capsule 11 11/08/2023 11/07/2024 Active Vitamin B Complex Tablet (1 source) take 1 tablet by mouth once daily b complex vitamins tablet Take 1 tablet by mouth daily. Active vitamin b12 1 mg oral capsule (2 sources) Vitamin B12 Start: 04-13-2025 take 1 capsule by mouth once daily Cyanocobalamin (Vitamin B-12) 1,000 mcg capsule Active 1000 ug PO DAILY April 13, 2025 12:00am Completed/Discontinued Medications Medication Drug Class(es) Dates Sig (Normalized) Sig (Original) calcium carbonate 500 mg oral tablet (1 source) End: 05-19-2017 take 500 mg by mouth once daily CALCIUM CARBONATE (CORAL CALCIUM ORAL) Take 500 mg by mouth daily. 05/19/2017 Discontinued dicyclomine hydrochloride 10 mg oral capsule (9 sources) Anticholinergic Start: 09-13-2023 End: 02-23-2024 dicyclomine (Bentyl) 10 mg capsule 09/13/2023 02/23/2024 Discontinued (Med List Cleanup) 60 actuat formoterol fumarate 0.005 mg/actuat / mometasone furoate 0.1 mg/actuat metered dose inhaler (9 sources) Corticosteroid, beta2-Adrenergic Agonist Start: 06-11-2023 End: 02-23-2024 Dulera 100-5 mcg/actuation inhaler 06/11/2023 02/23/2024 Discontinued (Med List Cleanup) iohexol (OMNIPaque) 350 mg iodine/mL solution 69 mL (1 source) Start: 05-04-2025 End: 05-04-2025 69 mL, intravenous, Once in imaging, Starting on Wed05/04/25 at 2306, For 1 dose 100 ml levoFLOXacin 5 mg/ml injection (1 source) Quinolone Antimicrobial Start: 05-05-2025 End: 05-05-2025 500 mg, intravenous, at 100 mL/hr, Administer over 60 Minutes, Once, On 05/05/25 at 0040, For 1 dose, premix bag, Dosing of this medication varies based on severity of illness. Does this patient have sepsis or concern for sepsis (probable or documented infection plus systemic manifestations of infection)? No, Suspected Indication (Select all that apply): Urinary Tract Infection, Type of Therapy: Empiric, Type of Urinary Tract Infection: Uncomplicated, Indications: Urinary Tract Infection 10 ml lidocaine hydrochloride 10 mg/ml injection (1 source) Antiarrhythmic, Amide Local Anesthetic Start: 09-14-2019 End: 09-14-2019 lidocaine PF 1 % injection 2 mL metoprolol tartrate 25 mg oral tablet (2 sources) beta-Adrenergic Deep Start: 08-13-2016 End: 06-02-2017 take 1 tablet by mouth once daily metoprolol tartrate (LOPRESSOR) 25 MG tablet Take 1 tablet (25 mg total) by mouth daily. 90 tablet 3 08/13/2016 06/02/2017 Discontinued Start: 05-06-2015 End: 06-19-2015 TOPROL XL 25 mg 24 hr tablet 1 ml morphine sulfate 4 mg/ml prefilled syringe (2 sources) Opioid Agonist Start: 05-04-2025 End: 05-05-2025 4 mg, intravenous, Once, On 05/05/25 at 0110, For 1 dose No Reported Medications (1 source) No Reported Medi cations Quantity: 0 Refills: 0 Ordered: 11-May-2018 DO Active 2 ml ondansetron 2 mg/ml injection (1 source) Serotonin-3 Receptor Antagonist Start: 05-04-2025 End: 05-04-2025 4 mg, intravenous, Once, On 9/5/25 at 2210, For 1 dose, When administering via IV Push, administer over 3-5 minutes. regadenoson (LEXISCAN) injection 0.4 mg (1 source) Start: 02-27-2021 End: 02-27-2021 regadenoson (LEXISCAN) injection 0.4 mg technetium tetrofosmin (Tc-MYOVIEW) injection 10 millicurie (1 source) Start: 02-27-2021 End: 02-27-2021 technetium tetrofosmin (Tc-MYOVIEW) injection 10 millicurie technetium tetrofosmin (Tc-MYOVIEW) injection 30 millicurie (1 source) Start: 02-27-2021 End: 02-27-2021 technetium tetrofosmin (Tc-MYOVIEW) injection 30 millicurie Problems Active Problems Problem Classification Problem Date Documented Da te Episodic/Chronic Asthma (2 sources) Mild intermittent asthma; Translations: [Mild intermittent asthma, uncomplicated] Onset: 2 07-08-2022 Chronic Calculus of urinary tract (20 sources) Kidney stone; Translations: [Calculus of kidney] Onset: 8 01-13-2018 Episodic Cardiac dysrhythmias (9 sources) Bradycardia; Translations: [Bradycardia, unspecified] Onset: 7 06-02-2017 Chronic Chronic obstructive pulmonary disease and bronchiectasis (3 sources) Pulmonary emphysema; Translations: [Other emphysema] Onset: 2 04-27-2022 Chronic Coronary atherosclerosis and other heart disease (20 sources) Coronary arteriosclerosis in [place] artery; Translations: [Atherosclerotic heart disease of [place] coronary artery without angina pectoris] Onset: 6 05-20-2016 Chronic Coronary atherosclerosis and other heart disease (1 source) Coronary atherosclerosis and other heart disease Onset: Disorders of lipid metabolism (20 sources) Dyslipidemia; Translations: [Hyperlipidemia, unspecified] Onset: 6 05-20-2016 Chronic Esophageal disorders (19 sources) Gastroesophageal reflux disease; Translations: [Gastro-esophageal reflux disease without esophagitis] Onset: 6 11-27-2015 Chronic Essential hypertension (2 sources) Essential (primary) hypertension; Translations: [Essential (primary) hypertension] Onset: 3 Chronic Gout and other crystal arthropathies (16 sources) Gout; Translations: [Gout, unspecified] Onset: 8 01-13-2018 Chronic Hyperplasia of prostate (20 sources) Benign prostatic hyperplasia; Translations: [Benign prostatic hyperplasia with lower urinary tract symptoms] Onset: 4 10-07-2023 Chronic Other connective tissue disease (1 source) Pain in right hand; Translations: [Pain in right hand] Episodic Other diseases of kidney and ureters (1 source) Hydronephrosis with renal and ureteral calculous obstruction; Translations: [Hydronephrosis with renal and ureteral calculous obstruction] Onset: 5 Episodic Other gastrointestinal disorders (2 sources) Irritable bowel syndrome; Translations: [Irritable bowel syndrome without diarrhea] Onset: 4 09-13-2023 Chronic Other hereditary and degenerative nervous system conditions (16 sources) Restless legs; Translations: [Restless legs syndrome] Onset: 8 01-13-2018 Chronic Other lower respiratory disease (1 source) Dyspnea on exertion; Translations: [Dyspnea, unspecified] Episodic Residual codes; unclassified (16 sources) Obstructive sleep apnea syndrome; Translations: [Obstructive sleep apnea (adult) (pediatric)] Onset: 8 05-06-2018 Chronic Thyroid disorders (13 sources) Multinodular goiter; Translations: [Nontoxic multinodular goiter] Onset: 1 Resolved: 2 Chronic Unclassified (2 sources) Athscl heart disease of [place] coronary artery w/o ang pctrs / I25.10(ICD-9) Onset: 8 Unclassified (1 source) Other fatigue / R53.83(ICD-9) Onset: 8 Unclassified (1 source) Encounter for screening for malignant neoplasm of prostate / Z12.5(ICD-9) Onset: 8 Unclassified (1 source) Basal cell carcinoma skin/ left lower limb, including hip / C44.719(ICD-10) Onset: 8 Unclassified (1 source) Unknown / UNK(Unknown) Onset: 8 Unclassified (3 sources) Patient encounter status; Translations: [Prostate cancer screening] Urinary tract infections (4 sources) Urinary tract infectious disease; Translations: [Urinary tract infection, site not specified] Onset: 11-09-2023 Episodic Past or Other Problems Problem Classification Problem Date Documented Da te Episodic/Chronic Abdominal pain (4 sources) Unspecified abdominal pain; Translations: [Stomach ache] Onset: 07-05-2023 Resolved: 06-26-2024 Episodic Biliary tract disease (5 sources) Polyp of gallbladder; Translations: [Cholesterolosis of gallbladder] Onset: 09-13-2023 09-13-2023 Episodic Cardiac dysrhythmias (14 sources) Bradycardia; Translations: [Bradycardia, unspecified] Onset: 06-02-2017 Resolved: 04-27-2022 01-13-2018 Episodic Genitourinary symptoms and ill-defined conditions (20 sources) Nocturia; Translations: [Nocturia] Onset: 10-07-2023 10-07-2023 Episodic Melanomas of skin (16 sources) Malignant melanoma; Translations: [Malignant melanoma of skin, unspecified] Onset: 08-30-2002 Resolved: 06-26-2024 01-13-2018 Chronic Nonspecific chest pain (3 sources) Chest discomfort; Translations: [Other chest pain] Resolved: 06-02-2017 06-02-2017 Episodic Other and ill-defined heart disease (16 sources) Heart disease; Translations: [Heart disease, unspecified] Resolved: 01-13-2018 01-13-2018 Chronic Other and unspecified benign neoplasm (2 sources) Polyp of colon; Translations: [Polyp of colon] Onset: 08-17-2023 Resolved: 06-26-2024 06-26-2024 Episodic Other lower respiratory disease (4 sources) Dyspnea; Translations: [Shortness of breath] Onset: 07-08-2022 Resolved: 06-11-2023 Episodic Other non-epithelial cancer of skin (18 sources) Basal cell carcinoma of skin; Translations: [Basal cell carcinoma of skin, unspecified] Onset: 01-13-2018 01-13-2018 Episodic Other nutritional; endocrine; and metabolic disorders (2 sources) Body mass index 30+ - obesity; Translations: [Obesity, unspecified] Onset: 07-08-2022 Resolved: 10-13-2023 10-13-2023 Chronic Unclassified (4 sources) Thallium stress test abnormal; Translations: [Patient encounter status] Onset: 11-27-2015 Resolved: 06-02-2017 06-02-2017 Episodic Unclassified (1 source) Basal cell carcinoma skin/ left lower limb, including hip; Translations: [Basal cell carcinoma skin/ left lower limb, including hip] Onset: 05-04-2018 Unclassified (1 source) BCCA LEFT LEG [id number] C44.719 Onset: 05-04-2018 Unclassified (16 sources) Onset: 10-07-2023 Resolved: 09-13-2024 10-07-2023 Results Test Name Value Interpretation Reference Range Facility CBC W Auto Differential pane l (Bld)on 05-04-2025 Basophils (Bld) [#/Vol] 0.03 10*3/uL [facility] Basophils/100 WBC (Bld) 0.3 % 0.0 - 2.0 % [facility] Eosinophils (Bld) [#/Vol] 0.04 10*3/uL [facility] Eosinophils/100 WBC (Bld) 0.3 % 0.0 - 6.0 % [facility] Erythrocyte distribution width (RBC) [Ratio] 13.1 % 11.5 - 14.5 % [facility] Hematocrit (Bld) [Volume fraction] 43.6 % 41.0 - 52.0 % [facility] Hemoglobin (Bld) [Mass/Vol] 14.8 g/dL 13.5 - 17.5 g/dL [facility] Immature granulocytes (Bld) [#/Vol] 0.04 10*3/uL [facility] Immature granulocytes/100 WBC (Bld) 0.3 % 0.0 - 0.9 % [facility] Comment on above: Immature Granulocyte Count (IG) includes promyelocytes, myelocytes and metamyelocytes but does not include bands. Percent differential counts (%) should be interpreted in the context of the absolute cell counts (cells/UL). Interpretation and review of laboratory results Abnormal [facility] Lymphocytes (Bld) [#/Vol] 1.25 10*3/uL [facility] Lymphocytes/100 WBC (Bld) 10.9 % 13.0 - 44.0 % [facility] MCH (RBC) [Entitic mass] 31.4 pg 26.0 - 34.0 pg [facility] MCHC (RBC) [Mass/Vol] 33.9 g/dL 32.0 - 36.0 g/dL [facility] MCV (RBC) [Entitic vol] 92 fL 80 - 100 fL [facility] Monocytes (Bld) [#/Vol] 0.82 10*3/uL [facility] Monocytes/100 WBC (Bld) 7.1 % 2.0 - 10.0 % [facility] Neutrophils (Bld) [#/Vol] 9.34 10*3/uL High [facility] Comment on above: Percent differential counts (%) should be interpreted in the context of the absolute cell counts (cells/uL). Neutrophils/100 WBC (Bld) 81.1 % 40.0 - 80.0 % [facility] Nucleated RBC/100 WBC (Bld) [Ratio] 0.0 % [facility] Platelets (Bld) [#/Vol] 190 10*3/uL [facility] RBC (Bld) [#/Vol] 4.72 10*6/uL [facility] WBC (Bld) [#/Vol] 11.5 10*3/uL [facility] CT Abdomen and Pelvis W cont rast Ivonne 05-04-2025 1. Moderate right hydronephrosis secondary to obstructing elongated or clustered calculi within the right proximal ureter measuring 2 cm in length. There are numerous additional right distal ureteral calculi extending to the vesicoureteral junction. 2. Additional nonobstructing bilateral renal calculi measuring up to 0.6 cm. 3. Mild distal esophageal wall thickening. Small hiatal hernia. Please correlate for esophagitis. 4. Cholelithiasis. 5. Prostatomegaly. 6. Colonic diverticulosis without evidence of diverticulitis. Signed by: Andrew Sosa 05/04/2025 11:53 PM Dictation workstation: [id number] [facility] MMODAL Interpreted By: Andrew Curiel, STUDY: CT ABDOMEN PELVIS W IV CONTRAST; 05/04/2025 11:06 pm INDICATION: Signs/Symptoms:Abdominal pain, history of kidney stones, nausea or vomiting. COMPARISON: CT ABDOMEN PELVIS WO IV CONTRAST 03/25/2025 ACCESSION NUMBER(S): [id number] ORDERING CLINICIAN: ELICIA LOVE TECHNIQUE: Axial CT images of the abdomen and pelvis with coronal and sagittal reconstructed images obtained. 69 ML of Omnipaque 350 was administered intravenously without immediate complication. FINDINGS: LOWER CHEST: Mild subsegmental atelectasis. LIVER: Within normal limits. BILE DUCTS: Normal caliber. GALLBLADDER: Cholelithiasis. PANCREAS: Within normal limits. SPLEEN: Within normal limits. ADRENALS: Within normal limits. KIDNEYS, URETERS, and BLADDER: There is moderate right hydronephrosis secondary to obstructing elongated calculus within the left proximal ureter measuring 2 cm in length. There are several additional calculi within the right distal ureter which are clustered proximal to the vesicoureteral junction as seen spanning coronal images 71 and 72. Exophytic bilateral lower pole renal cysts. Additional nonobstructing calculi measuring up to 0.6 cm on the left and 0.4 cm on the right. Ureters are non-dilated. Urinary bladder within normal limits. REPRODUCTIVE: Prostatomegaly measuring 5.5 cm. VESSELS: Mild atherosclerosis. No abdominal aortic aneurysm. RETROPERITONEUM and LYMPH NODES: No lymphadenopathy. BOWEL: Mild distal esophageal wall thickening. Small hiatal hernia. Mildly prominent paraesophageal lymph node measuring 0.9 cm. Remainder of the stomach is within normal limits. Small bowel is non-dilated. Normal appendix. Colonic diverticulosis without evidence of diverticulitis. PERITONEUM: No ascites or free air. No fluid collection. BODY WALL: Small fat containing periumbilical hernia. MUSCULOSKELETAL: No acute osseous abnormality or suspicious osseous lesions. Moderate right greater than left hip osteoarthritis. MMODAL nAdrew Sosa, DO - 05/04/2025 Interpreted By: Andrew Sosa, STUDY: CT ABDOMEN PELVIS W IV CONTRAST; 05/04/2025 11:06 pm INDICATION: Signs/Symptoms:Abdominal pain, history of kidney stones, nausea or vomiting. COMPARISON: CT ABDOMEN PELVIS WO IV CONTRAST 03/25/2025 ACCESSION NUMBER(S): [id number] ORDERING CLINICIAN: ELICIA LOVE TECHNIQUE: Axial CT images of the abdomen and pelvis with coronal and sagittal reconstructed images obtained. 69 ML of Omnipaque 350 was administered intravenously without immediate complication. FINDINGS: LOWER CHEST: Mild subsegmental atelectasis. LIVER: Within normal limits. BILE DUCTS: Normal caliber. GALLBLADDER: Cholelithiasis. PANCREAS: Within normal limits. SPLEEN: Within normal limits. ADRENALS: Within normal limits. KIDNEYS, URETERS, and BLADDER: There is moderate right hydronephrosis secondary to obstructing elongated calculus within the left proximal ureter measuring 2 cm in length. There are several additional calculi within the right distal ureter which are clustered proximal to the vesicoureteral junction as seen spanning coronal images 71 and 72. Exophytic bilateral lower pole renal cysts. Additional nonobstructing calculi measuring up to 0.6 cm on the left and 0.4 cm on the right. Ureters are non-dilated. Urinary bladder within normal limits. REPRODUCTIVE: Prostatomegaly measuring 5.5 cm. VESSELS: Mild atherosclerosis. No abdominal aortic aneurysm. RETROPERITONEUM and LYMPH NODES: No lymphadenopathy. BOWEL: Mild distal esophageal wall thickening. Small hiatal hernia. Mildly prominent paraesophageal lymph node measuring 0.9 cm. Remainder of the stomach is within normal limits. Small bowel is non-dilated. Normal appendix. Colonic diverticulosis without evidence of diverticulitis. PERITONEUM: No ascites or free air. No fluid collection. BODY WALL: Small fat containing periumbilical hernia. MUSCULOSKELETAL: No acute osseous abnormality or suspicious osseous lesions. Moderate right greater than left hip osteoarthritis. IMPRESSION: 1. Moderate right hydronephrosis secondary to obstructing elongated or clustered calculi within the right proximal ureter measuring 2 cm in length. There are numerous additional right distal ureteral calculi extending to the vesicoureteral junction. 2. Additional nonobstructing bilateral renal calculi measuring up to 0.6 cm. 3. Mild distal esophageal wall thickening. Small hiatal hernia. Please correlate for esophagitis. 4. Cholelithiasis. 5. Prostatomegaly. 6. Colonic diverticulosis without evidence of diverticulitis. Signed by: Andrew Sosa 05/04/2025 11:53 PM Dictation workstation: [id number] [facility] Work Phone: Radiology Study observation (narrative) [facility] Work Phone: CT Abdomen and Pelvis W cont rast IVOrdered By: Andrew Sosa on 05-04-2025 [facility] Work Phone: Comprehensive metabolic 2000 panelon 05-04-2025 Albumin BCP dye [Mass/Vol] 4.0 g/dL 3.4 - 5.0 g/dL [facility] ALP [Catalytic activity/Vol] 138 U/L High 33 - 136 U/L [facility] ALT With P-5'-P [Catalytic activity/Vol] 15 U/L 10 - 52 U/L [facility] Comment on above: Patients treated wit h Sulfasalazine may generate falsely decreased results for ALT. Anion gap [Moles/Vol] 12 mmol/L 10 - 20 mmol/L [facility] AST With P-5'-P [Catalytic activity/Vol] 15 U/L 9 - 39 U/L [facility] Bilirubin [Mass/Vol] 1.6 mg/dL High 0.0 - 1 .2 mg/dL [facility] Calcium [Mass/Vol] 9.3 mg/dL 8.6 - 10. 3 mg/dL [facility] Chloride [Moles/Vol] 103 mmol/L 98 - 10 7 mmol/L [facility] CO2 [Moles/Vol] 25 mmol/L 21 - 32 mmol/L [facility] Creatinine [Mass/Vol] 1.60 mg/dL High 0.50 - 1.30 mg/dL [facility] GFR/1.73 sq M.predicted among non-blacks MDRD (S/P/Bld) [Vol rate/Area] 47 mL/min/{1.73_m2} Low - PINF [facility] Comment on above: Calculations of ashely mated GFR are performed using the 2020 CKD-EPI Study Refit equation without the race variable for the IDMS-Traceable creatinine methods. https://jasn.asnjournals.org/content/early/ASN.8993448 988 Glucose [Mass/Vol] 138 mg/dL High 74 - 99 mg/dL [facility] Interpretation and review of laboratory results Abnormal [facility] Potassium [Moles/Vol] 3.9 mmol/L 3.5 - 5.3 mmol/L [facility] Protein [Mass/Vol] 6.4 g/dL 6.4 - 8.2 g/dL [facility] Sodium [Moles/Vol] 136 mmol/L 136 - 145 mmol/L [facility] Urea nitrogen [Mass/Vol] 14 mg/dL 6 - 23 mg/dL [facility] Lactateon 05-04-2025 Lactate [Moles/Vol] 1.5 mmol/L 0.4 - 2. 0 mmol/L [facility] Lactate [Moles/Vol]on 2024 Interpretation and review of laboratory results Normal [facility] Venipuncture immedia tely after or during the administration of Metamizole may lead to falsely low results. Testing should be performed immediately prior to Metamizole dosing. [facility] Lipaseon 05-04-2025 Lipase [Catalytic activity/Vol] 12 U/L 9 - 82 U/L [facility] Lipase [Catalytic activity/V ol]on 05-04-2025 Interpretation and review of laboratory results Normal [facility] Venipuncture immedia tely after or during the administration of Metamizole may lead to falsely low results. Testing should be performed immediately prior to Metamizole dosing. [facility] No Panel Informationon 05-04 [facility] Urinalysis complete W Reflex Culture panel (U)on 05-04-2025 Appearance (U) Clear Clear [facility] Bilirubin (U) [Mass/Vol] Negative NEGATIVE mg/dL [facility] Color (U) Dark-Yellow Light-Yellow , Yellow, Dark-Yellow [facility] Glucose Auto test strip (U) [Mass/Vol] Normal Normal mg/dL [facility] Interpretation and review of laboratory results Abnormal [facility] Ketones (U) [Mass/Vol] Negative NEGATIVE mg/dL [facility] Leukocyte esterase Auto test strip Ql (U) Negative NEGATIVE [facility] Nitrite Auto test strip Ql (U) 1+ Abnormal NEGATIVE [facility] pH (U) 6.5 [pH] 5.0, 5.5, 6.0, 6.5, 7.0, 7.5, 8.0 [facility] Protein (U) [Mass/Vol] Negative NEGATIVE, 10 (TRACE), 20 (TRACE) mg/dL [facility] RBC (U) [#/Vol] Negative NEGATIVE mg/dL [facility] Specific gravity (U) [Rel density] 1.015 1.005 - 1.035 [facility] Urobilinogen (U) [Mass/Vol] Normal Normal mg/dL [facility] Urinalysis microscopic panel Auto Ql (U)on 05-04-2025 Interpretation and review of laboratory results Normal [facility] RBC Auto (Urine sed) [#/Area] NONE NONE, 1-2, 3-5 /HPF [facility] WBC Auto (Urine sed) [#/Area] 1-5 1-5, NONE /HPF [facility] Abdomen Single Viewon 2024 [facility] [address] [place] [address] [phone] Abdomen Single View MR#: [id number] Acct: [id number] Name: RAMON COSTA Rep #: [id number] : 1955 M 69 From: Kartik Bernal MD PCP: Jarad Rey MD Status: DEP [facility] Study: Abdomen Single View Date of Exam: 04/25/25 Exam# [id number] Ordering Dr: Harjit Lam MD EXAM: XR Abdomen, 1 View CLINICAL INDICATION: PREOP BILAT KIDNEY STONE TECHNIQUE: Frontal supine view of the abdomen/pelvis. COMPARISON: XR Abdomen dated 04/10/2025 FINDINGS: GASTROINTESTINAL TRACT: Unremarkable. No dilation. ORGANS: Bilateral renal pelvic calculi, largest measuring up to 10 mm. BONES/JOINTS: Unremarkable. No acute fracture. RAD/Abdomen Single View IMPRESSION: Bilateral renal pelvic calculi, largest measuring up to 10 mm. Reading Location: [id number] CC: Dr. Harjit Lam MD; Jarad Rey MD Self Rising Flour Mixer: Signed Normal [facility] Discharge Instructionon 03-31 Discharge Instruction [facility] Medical Records Department [address] [place] [address] Instructions for Home/Discharge Instructions 04/25/25 1547 MR#: [id number] Acct: [id number] Name: RAMON COSTA Rep #: [id number] : [id number] 69 From: Harjit Lam MD PCP: Jarad Rey MD Status:REG SDC Discharge Instructions DC O2, CPAP, BIPAP needs Home O2 Discharge instructions: No Dressing / Incision Discharge Activity: Return to Normal Activity and May Not Drive (while taking narcotic pain medications.) Dressing / Incision Call your doctor if you observe: Fever of 101 or Higher and Uncontrolled pain Follow Up Care Please Follow Up With: Harjit Lam MD When: Call [phone] for an appointment Test Results: Test results from this visit will be discussed in further detail at your follow-up appointment, if applicable. Discharge Plan Admission Primary Reason for Your Visit: ESWL Attending Provider: Harjit Lam Primary Care Provider: Jarad Rey Instructions Print Language: [place] Discharge Orders/Prescriptions Prescriptions: New ciprofloxacin HCl [Cipro] 500 mg tablet 500 mg PO BID Qty: 10 0RF tamsulosin [Flomax] 0.4 mg capsule 0.4 mg PO DAILY Qty: 14 0RF phenazopyridine [Pyridium] 100 mg tablet 100 mg PO TID Qty: 20 0RF oxycodone 5 mg tablet 5 mg PO Q6H PRN (Reason: pain) 3 Days Qty: 14 0RF Continued atorvastatin 40 mg tablet 40 mg PO QHS pantoprazole 40 mg tablet,delayed release (DR/EC) 40 mg PO DAILY ropinirole 1 mg tablet 1 mg PO QHS losartan 25 mg tablet 25 mg PO DAILY allopurinol 300 mg tablet 300 mg PO DAILY niacinamide 500 mg tablet 500 mg PO DAILY cyanocobalamin (vitamin B-12) 1,000 mcg capsule 1,000 mcg PO DAILY ascorbic acid (vitamin C) [C-500] 500 mg tablet 1 g PO DAILY cholecalciferol (vitamin D3) [Vitamin D3] 125 mcg (5,000 unit) tablet 125 mcg PO DAILY Held clopidogrel 75 mg tablet 75 mg PO DAILY Hold Instructions: Resume on 05/02/25. Referrals / Follow Up: Jarad Rey MD [Primary Care Provider] - Harjit Lam MD [Med Staff - Active Staff] - Disposition Disposition (needs filled in before D/C Order can be placed): Home, Self Care 04/25/25 1547 Harjit Lam MD CC: Jarad Rey MD Signed ADDENDUM by Dr. Harjit Lam MD on 04/25/25 at 1547 Next week with an KUB prior to appt. with vt. 04/25/25 1547 Harjit Lam MD cc: Jarad Rey MD * Signed [facility] MR/POSTOP.[facility] 04-25-2025 MR/POSTOP.[facility] Medical Records Department [address] [place] [address] Anesthesia Postop Eval I 04/25/251646 MR#: [id number] Acct: [id number] Name: RAMON COSTA Rep #: [id number] : 1955 69 From: Gonzalo Saucedo CRNA PCP: Jarad Rey MD Status:REG SDC Y Race: C Location: [place] [address] Anesthesia: Postop Eval I Current Vital Signs Temperature: 96.6 F Pulse Rate: 65 Blood Pressure: 159/77 Respiratory Rate: 20 Pulse Ox: 99 Oxygen Delivery Method: Room Air Assessment Airway patent: Yes Spontaneous unlabored respirations: Yes Mental status: Awake nausea: No Vomiting: No Anesthesia Complication: No Fluid Hydration Crystalloid volume administer (ml): 900 Total IV fluid infused: 900 Progress Note Anesthesia document: Postop Eval 1 completed: Yes 04/25/25 1648 Date Gonzalo Saucedo CRNA Cosigner Signature: Date CC: Signed Normal [facility] MR/[id number] 04-25-2025 MR/POSTOPAN2 [facility] Medical Records Department [address] [place] [address] Anesthesia Postop Eval II 04/25/251810 MR#: [id number] Acct: [id number] Name: RAMON COSTA Rep #: [id number] : 1955 69 From: Delonte Israel MD PCP: Jarad Rey MD Status:DEP [facility] Y Race: C Location: [facility] Anesthesia Postop Eval I Sum Postop Eval Completion status Anesthesia document: Postop Eval 1 completed: Yes Anesthesia Postop Eval I Summary Anesthesia Postop Eval I Summary: Anesthesia Postop Eval I: Assessment Summary Airway patent Yes 04/25/25 16:48 [email or web address] Spontaneous unlabored Yes 04/25/25 16:48 [email or web address] [email or web address] respirations Mental status Awake 04/25/25 16:48 [email or web address] [email or web address] nausea No 04/25/25 16:48 [email or web address] [email or web address] Vomiting No 04/25/25 16:48 [email or web address] [email or web address] Anesthesia Postop Eval I: Fluid Summary Crystalloid volume administer 900 04/25/25 16:48 [email or web address] (ml) Colloids volume administered ( ml) Blood Product volume administered (ml) Total IV fluid infused 900 04/25/25 16:48 [email or web address] Anesthesia Postop Eval I: Summary Notes Anesthesia Complication No 04/25/25 16:48 [email or web address] Anesthesia Complication Comment: Post-operative progress note Anesthesia: Postop Eval II Evaluation Mental status: Awake Pain Level: 0 nausea: No Vomiting: No Complications Anesthesia Complication: No 04/25/251810 Date Delonte Israel MD Cosigner Signature: Date CC: Signed [facility] Operative Reporton 5 Operative Report [facility] Medical Records Department [address] [place] [address] Operative Report 04/25/25 1620 MR#: [id number] Acct: [id number] Name: RAMON COSTA Rep #: [id number] : 1955 69 From: Harjit Lam MD PCP: Jarda Rey MD Status:REG [facility] Location: [place] [address] Operative Report (Standard) Operative Information Date of Procedure: 04/25/25 Pre-Operative Diagnosis: Right kidney stones Post-Operative Diagnosis: same Surgery/Procedure Performed: Cystoscopy right stent placement and right ESWL workforce management consultant: No Type of Anesthesia: General RN Documented Start/Stop Times: Operation Date: 04/25/25 13:00 Case Time Into Pre-Op 04/25/25 11:12 Out of Pre-Op 04/25/25 15:38 Anesthesia Start 04/25/25 15:42 Into Room 04/25/25 15:42 Procedure Start 04/25/25 15:56 Procedure Start Time: 15:56 Procedure Stop Time: 16:36 Select all DRAINS/GRAFTS/IMPLANTS that apply: Drains Drain details: right stent Estimated Blood Loss: 0 Specimen collected: No Description of surgery: Patient presents to the hospital for treatment of a kidney stone with shockwave lithotripsy. In the preoperative area and x-ray was done to confirm the location of the stone. The x-ray was reviewed and the stone location was reviewed. In the preoperative setting I spoke with the patient regarding the treatment of the stone how the treatment would be conducted and the expectations after surgery. The patient understands there is a risk of bleeding and infection. Also discussed the very rare risk of hematoma or damage to the kidney. We also discussed the risk that the shockwave machine will fail to break the stone adequately and that the patient may need other surgical procedures. I also discussed the possibility that the patient may need a stent after the procedure. After reviewing the procedure with the patient, the patient is signed the consent form all the patient's questions were addressed and was taken back to the operating room for treatment of a kidney stone. Patient was taken back to the operating room, the patient was identified by the nursing staff, I identified the side of the treatment and the patient side of treatment had been marked by my initials. The urethra and genitals were prepped and draped in usual sterile fashion. Using a 21 Belgian rigid cystourethroscope the entire length of the urethra was normal then went into the bladder. Identified the trigone the left and right ureteral orifice. I then cannulated the right ureteral orifice and advanced a wire up into the kidney. I then backloaded a 5 Belgian open ended catheter over the wire and injected contrast to delineate the anatomy. After the retrograde was performed I then used fluoroscopic images and guidance to advanced a wire up into the kidney and over the 0.038 glidewire I advanced a 6 Belgian by 26 cm double pigtail stent. I then pulled the 0.038 Glidewire off and the stent coiled in the kidney bladder good position. The bladder was then drained. We confirmed the position of the stent by fluoroscopy. The patient underwent general anesthetic and was placed supine on the lithotripter table. I then used fluoroscopy to identify the stone on the right kidney. I then positioned the patient under the lithotripter and I used triangulation technique to identify the location of the stone and then I made sure that the stone was engaged in the F2 focal point of F2 Donier lithoprior machine. Once the patient was positioned appropriately and the stone was identified and placed in the F2 focal point of the lithotripter machine I then proceeded with shockwave lithotripsy. In the beginning the shockwave was delivered at a rate of 90 shocks per minute, anesthesia monitored the EKG for any ectopy. The power was slowly increased to 5 kV and subsequently at the 7 kV. I then proceeded with the treatment with shock wave therapy and around during the treatment to make sure the stone stayed in the F2 focal point during the entire treatment and after 3000 shockwaves were delivered to the stone under fluoroscopic guidance the treatment was completed. The patient was given instructions to call the office to make an a follow-up appointment with an x-ray to evaluate the success of the treatment, patient understands that its possible the stones may need another procedure. At this point the patient's anesthetic was reversed patient was extubated and taken back to the PACU in stable condition. Surgical Findings: stone broke up well could still see many fragments, and right stent Complications Complications: No Admit VTE Documentation VTE Present on Admission: No VTE Mechan Device Prophylaxis: SCD's VTE Pharm Prophylaxis ordered?: No 04/25/25 1637 Cosigner Signature (if applicable): CC: Dr. 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 When Was Last Pacemaker Check QUESTION #4 FULL TEXT: You/Your Family Experience fever (hyperthermia) with Anesthesia Last Oral Intake Last Oral intake: Last Oral Intake NPO since Meds taken in AM with sips of water? Meds patient instructed to take am of surgery PONV PONV - char filter operator helper: PONV - char filter operator helper Female No 04/13/25 13:21 HX of Motion Sickness No 04/13/25 13:21 HX of N/V After Surgery No 04/13/25 13:21 Non-Smoker Yes 04/13/25 13:21 Duration of Surgery greater Yes 04/13/25 13:21 than 60 minutes Number of Risk Factors 2 04/13/25 13:21 PONV Score Moderate Risk 04/13/25 13:21 Respiratory Assessment Respiratory Assessment - char filter operator helper: Respiratory Tract Infection Hx - char filter operator helper Hx Respiratory Tract Infection No 04/13/25 13:21 STOP Sleep Apnea STOP Sleep Apnea - char filter operator helper: STOP Sleep Apnea - char filter operator helper Hx Hypertension Yes: CONTROLLED WITH MED 04/13/25 13:21 Hx Sleep Apnea Yes 04/13/25 13:21 CPAP Yes 04/13/25 13:21 BIPAP No 04/13/25 13:21 Do you snore loudly (louder than talking or can be heard Do you often feel tired/ fatigued/ sleepy during daytime? Has anyone observed you stop breathing during sleep? STOP Results Positive 04/13/25 13:21 QUESTION #5 FULL TEXT : Do you snore loudly (louder than talking or can be heard through closed doors)? 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 Specify any problems Hx of Preganancy in last 3 N/A 04/13/25 13:21 Months Nurse Filling Out Transfusion DSCHRIBER 04/13/25 13:21 Questions: Date: 04/13/25 04/13/25 13:21 Time: 13:22 04/13/25 13:21 Patient unable to answer at this time (ie. confused, unrespo /Reproduction History /Reproductive History - char filter operator helper: /Reproductive Hx- char filter operator helper Hx Now No 04/13/25 13:21 Gestational Age (in weeks): EDC: Hx Hx Para Hx Section SAB No 04/13/25 13:21 PFSH Medical History (Updated 04/13/25 @ 13:33 by Vidya Maloney) Wears glasses Cancer Prostate disease High cholesterol Back pain Injury of back History of diverticulitis Gastric reflux Asthma Shortness of breath on exertion CPAP (continuous positive airway pressure) dependence Non-smoker History of edema History of stress test Cardiology follow-up encounter Hypertension Home Medications ???Medication ???Instructions ???Recorded ???Last Taken ???Type allopurinol 300 mg tablet 300 mg PO DAILY 04/13/25 Unknown H istory ascorbic acid (vitamin C) 500 mg 1 g PO DAILY 04/13/25 Unknown Hist ory tablet (C-500) atorvastatin 40 mg tablet 40 mg PO QHS 04/13/25 Unknown Hist ory cholecalciferol (vitamin D3) 125 125 mcg PO DAILY 04/13/25 Unknown History mcg (5,000 unit) tablet (Vitamin D3) clopidogrel 75 mg tablet 75 mg PO DAILY 04/13/25 Unknown Hi story cyanocobalamin (vitamin B-12) 1,000 mcg PO DAILY 04/13/25 Unknow n History 1,000 mcg capsule losartan 25 mg tablet 25 mg PO DAILY 04/13/25 Unknown Hi story niacin (more content not included)... Normal [facility] Abdomen Single Viewon 2024 Abdomen Single View [facility] Imaging Services [address] [place], [place] [address] Abdomen Single View MR#: [id number] Acct: [id number] Name: RAMON COSTA Rep #: [id number] : 1955 M 69 From: Aryan Guerrero MD PCP: Jarad Rey MD Status: REG CLI Study: Abdomen Single View Date of Exam: 04/10/25 Exam# [id number] Ordering Dr: Melba Barr PROCEDURE: ABDOMEN SINGLE VIEW 04/10/2025 REASON FOR EXAM: CALCULUS OF KIDNEY TECHNIQUE: Abdomen, two views COMPARISON: None FINDINGS: There are a proximally 7 calcific densities overlying the right renal shadow measuring up to 1 cm. There are at least 3 calcifications overlying the left kidney measuring up to 5 mm. No demonstrated calcifications along the expected course of either ureter or within the pelvis. Bowel-gas pattern is unremarkable with retained stool there is no evidence of free air. Bony structures show degenerative change RAD/Abdomen Single View IMPRESSION: Bilateral nephrolithiasis, largest stone in the right kidney measures a proximally 1 cm, largest in the left measures 0.5 cm No demonstrated calcifications along the expected course of either ureter Bony structures show degenerative change Reading Location: [id number] CC: Jarad Rey MD; Melba Barr Self Rising Flour Mixer: Signed Normal [facility] PSA,Total - Annual Screenon 04-10-2025 PSA,TOT SCREEN 2.38 ng/mL Normal 0.02-4.00 [facility] Comment on above: Result Comment: This test was performed using the [employer] tPSA method. Measured values of a patient??sample can vary depending on the testing procedure used. PSA values determined on patient samples by different testing procedures cannot be used interchangeably. If there is a change in PSA assays while monitoring therapy, sequential testing should be performed to confirm baseline values. Performed By: #### L [phone] #### [facility] Laboratory [address] [place], [address] US GALLBLADDER RUQon 025 US GALLBLADDER RUQ EXAMINATION: RIGHT UPPER QUADRANT ULTRASOUND 04/09/2025 10:42 am COMPARISON: U/S abdomen limited 03/06/2024, CT abdomen/pelvis 08/10/2023 HISTORY: ORDERING SYSTEM PROVIDED HISTORY: Gallbladder polyp TECHNOLOGIST PROVIDED HISTORY: This procedure can be scheduled via [employer]. What reading provider will be dictating this exam?->CRC FINDINGS: The pancreas is suboptimally visualized due to overlying bowel gas. The visualized segments appear unremarkable. The liver measures 17.3 cm in length and demonstrates increased echotexture without intrahepatic biliary dilatation. No masses are visualized. There is normal hepatopedal flow visualized within the main portal vein. The gallbladder demonstrates a 0.6 cm echogenic focus suggestive of a polyp. There are multiple gallstones identified. The common bile duct measures 0.3cm. Negative sonographic Pichardo's sign. The right kidney measures 12.9 x 5.0 x 7.5 cm. Renal cortical echotexture is normal with cortical thinning. There is no hydronephrosis. There are no stones. There is a 7.9 cm debris containing cyst. IMPRESSION: 1. Diffuse hepatic steatosis. 2. Cholelithiasis without sonographic evidence of acute cholecystitis. 3. 0.6 cm gallbladder polyp. 4. Right renal cortical thinning. 5. 7.9 cm debris containing right renal cyst. Interpreted by: Cas Alexander MD Signed by: Cas Alexander MD 04/09/25 Final result Normal [facility] US Gallbladderon 04-09-2025 1. Diffuse hepatic steatosis. 2. Cholelithiasis without sonographic evidence of acute cholecystitis. 3. 0.6 cm gallbladder polyp. 4. Right renal cortical thinning. 5. 7.9 cm debris containing right renal cyst. [facility] EXAMINATION: RIGHT UPPER QUADRANT ULTRASOUND 04/09/2025 10:42 am COMPARISON: U/S abdomen limited 03/06/2024, CT abdomen/pelvis 08/10/2023 HISTORY: ORDERING SYSTEM PROVIDED HISTORY: Gallbladder polyp TECHNOLOGIST PROVIDED HISTORY: This procedure can be scheduled via MyChart. What reading provider will be dictating this exam?->CRC FINDINGS: The pancreas is suboptimally visualized due to overlying bowel gas. The visualized segments appear unremarkable. The liver measures 17.3 cm in length and demonstrates increased echotexture without intrahepatic biliary dilatation. No masses are visualized. There is normal hepatopedal flow visualized within the main portal vein. The gallbladder demonstrates a 0.6 cm echogenic focus suggestive of a polyp. There are multiple gallstones identified. The common bile duct measures 0.3cm. Negative sonographic Pichardo's sign. The right kidney measures 12.9 x 5.0 x 7.5 cm. Renal cortical echotexture is normal with cortical thinning. There is no hydronephrosis. There are no stones. There is a 7.9 cm debris containing cyst. [facility] Cas Alexander MD - 04/09/2025 EXAMINATION: RIGHT UPPER QUADRANT ULTRASOUND 04/09/2025 10:42 am COMPARISON: U/S abdomen limited 03/06/2024, CT abdomen/pelvis 08/10/2023 HISTORY: ORDERING SYSTEM PROVIDED HISTORY: Gallbladder polyp TECHNOLOGIST PROVIDED HISTORY: This procedure can be scheduled via [employer]. What reading provider will be dictating this exam?->CRC FINDINGS: The pancreas is suboptimally visualized due to overlying bowel gas. The visualized segments appear unremarkable. The liver measures 17.3 cm in length and demonstrates increased echotexture without intrahepatic biliary dilatation. No masses are visualized. There is normal hepatopedal flow visualized within the main portal vein. The gallbladder demonstrates a 0.6 cm echogenic focus suggestive of a polyp. There are multiple gallstones identified. The common bile duct measures 0.3cm. Negative sonographic Pichardo's sign. The right kidney measures 12.9 x 5.0 x 7.5 cm. Renal cortical echotexture is normal with cortical thinning. There is no hydronephrosis. There are no stones. There is a 7.9 cm debris containing cyst. IMPRESSION: 1. Diffuse hepatic steatosis. 2. Cholelithiasis without sonographic evidence of acute cholecystitis. 3. 0.6 cm gallbladder polyp. 4. Right renal cortical thinning. 5. 7.9 cm debris containing right renal cyst. [facility] [place] [facility] observation (narrative) [facility] [place] [facility] US GallbladderOrdered By: Robert Alexander on 04-09-2025 [facility] [employer] Work Phone: Bacteriaon 03-25-2025 Bacteria identified Cx Nom (U) Test: Urine Culture Specimen Source: Clean Catch/Voided Specimen Type: Urine Specimen Date: 03/25/20252250 Result Date: 03/27/2025804 Result Status: Final result Abnormal: No Resulting Lab: [facility] [id number] [place] [address] CULTURE No growth Normal [facility] Comment on above: Performed By: #### 6 30-4 #### SULLY Schmidt ([id number]) [facility] ([facility]) [address] [place] [address] Basic metabolic 2000 panelon 03-25-2025 Anion gap [Moles/Vol] 9 mmol/L Low 10 - 20 mmol/L [facility] Calcium [Mass/Vol] 8.8 mg/dL 8.6 - 10. 3 mg/dL [facility] Chloride [Moles/Vol] 106 mmol/L 98 - 10 7 mmol/L [facility] CO2 [Moles/Vol] 27 mmol/L 21 - 32 mmol/L [facility] Creatinine [Mass/Vol] 1.40 mg/dL High 0.50 - 1.30 mg/dL [facility] GFR/1.73 sq M.predicted among non-blacks MDRD (S/P/Bld) [Vol rate/Area] 55 mL/min/{1.73_m2} Low - PINF [facility] Comment on above: Calculations of ashely mated GFR are performed using the 2020 CKD-EPI Study Refit equation without the race variable for the IDMS-Traceable creatinine methods. https://jasn.asnjournals.org/content//ASN.8735847 988 Glucose [Mass/Vol] 105 mg/dL High 74 - 99 mg/dL [facility] Interpretation and review of laboratory results Abnormal [facility] Potassium [Moles/Vol] 3.8 mmol/L 3.5 - 5.3 mmol/L [facility] Sodium [Moles/Vol] 138 mmol/L 136 - 145 mmol/L [facility] Urea nitrogen [Mass/Vol] 12 mg/dL 6 - 23 mg/dL [facility] Anion gap [Moles/Vol] 9 mmol/L Low 10-20 [facility] Comment on above: Performed By: #### 2 4321-2 #### CHRISTIE WATSON ([id number]) [facility] ([facility]) [address] [place] [address] Calcium [Mass/Vol] 8.8 mg/dL Normal 8.6-10.3 [facility] Comment on above: Performed By: #### 2 4321-2 #### CHRISTIE WATSON ([id number]) [facility] ([facility]) [facility] [place] [address] Chloride [Moles/Vol] 106 mmol/L Normal 98-107 [facility] Comment on above: Performed By: #### 2 4321-2 #### CHRISTIE WATSON ([id number]) [facility] ([facility]) [address] [place] [address] CO2 [Moles/Vol] 27 mmol/L Normal 21-32 [facility] Comment on above: Performed By: #### 2 4321-2 #### CHRISTIE WATSON ([id number]) [facility] ([facility]) [facility] [place] [address] Creatinine [Mass/Vol] 1.40 mg/dL High 0.50-1.30 [facility] Comment on above: Performed By: #### 2 4321-2 #### CHRISTIE WATSON ([id number]) [facility] ([facility]) [address] [place] [address] Glomerular filtration rate 55 mL/min/1.73m*2 Low >60 [facility] Comment on above: Result Comment: Calc ulations of estimated GFR are performed using the 2020 CKD-EPI Study Refit equation without the race variable for the IDMS-Traceable creatinine methods. https://jasn.asnjournals.org/content/early//ASN.9079036 988 Performed By: #### 2 4321-2 #### CHRISTIE WATSON ([id number]) [facility] ([facility]) [address] [place] [address] Glucose [Mass/Vol] 105 mg/dL High 74-99 [facility] Comment on above: Performed By: #### 2 4321-2 #### CHRISTIE WATSON ([id number]) [facility] ([facility]) [address] [place] [address] Potassium [Moles/Vol] 3.8 mmol/L Normal 3.5-5.3 [facility] Comment on above: Performed By: #### 2 4321-2 #### CHRISTIE WATSON ([id number]) [facility] ([facility]) [address] [place] [address] Sodium [Moles/Vol] 138 mmol/L Normal 136-145 [facility] Comment on above: Performed By: #### 2 4321-2 #### CHRISTIE WATSON ([id number]) [facility] ([facility]) [address] [place] [address] Urea nitrogen [Mass/Vol] 12 mg/dL Normal 6-23 [facility] Comment on above: Performed By: #### 2 4321-2 #### CHRISTIE WATSON ([id number]) [facility] ([facility]) [address] [place] [address] CBC W Auto Differential pane l (Bld)on 03-25-2025 Basophils (Bld) [#/Vol] 0.04 10*3/uL [facility] Basophils/100 WBC (Bld) 0.4 % 0.0 - 2.0 % [facility] Eosinophils (Bld) [#/Vol] 0.23 10*3/uL [facility] Eosinophils/100 WBC (Bld) 2.5 % 0.0 - 6.0 % [facility] Erythrocyte distribution width (RBC) [Ratio] 14.0 % 11.5 - 14.5 % [facility] Hematocrit (Bld) [Volume fraction] 43.6 % 41.0 - 52.0 % [facility] Hemoglobin (Bld) [Mass/Vol] 14.7 g/dL 13.5 - 17.5 g/dL [facility] Immature granulocytes (Bld) [#/Vol] 0.02 10*3/uL [facility] Immature granulocytes/100 WBC (Bld) 0.2 % 0.0 - 0.9 % [facility] Comment on above: Immature Granulocyte Count (IG) includes promyelocytes, myelocytes and metamyelocytes but does not include bands. Percent differential counts (%) should be interpreted in the context of the absolute cell counts (cells/UL). Lymphocytes (Bld) [#/Vol] 2.64 10*3/uL [facility] Lymphocytes/100 WBC (Bld) 28.4 % 13.0 - 44.0 % [facility] MCH (RBC) [Entitic mass] 31.7 pg 26.0 - 34.0 pg [facility] MCHC (RBC) [Mass/Vol] 33.7 g/dL 32.0 - 36.0 g/dL [facility] MCV (RBC) [Entitic vol] 94 fL 80 - 100 fL [facility] Monocytes (Bld) [#/Vol] 0.87 10*3/uL [facility] Monocytes/100 WBC (Bld) 9.4 % 2.0 - 10.0 % [facility] Neutrophils (Bld) [#/Vol] 5.50 10*3/uL [facility] Comment on above: Percent differential counts (%) should be interpreted in the context of the absolute cell counts (cells/uL). Neutrophils/100 WBC (Bld) 59.1 % 40.0 - 80.0 % [facility] Nucleated RBC/100 WBC (Bld) [Ratio] 0.0 % [facility] Platelets (Bld) [#/Vol] 189 10*3/uL [facility] RBC (Bld) [#/Vol] 4.64 10*6/uL [facility] WBC (Bld) [#/Vol] 9.3 10*3/uL [facility] Basophils (Bld) [#/Vol] 0.04 x10*3/uL Normal 0.00-0.10 [facility] Comment on above: Performed By: #### 5 7021-8 #### CHRISTIE WATSON ([id number]) [facility] ([facility]) [address] [place] [address] 42657 Basophils/100 WBC (Bld) 0.4 % Normal 0.0-2.0 [facility] Comment on above: Performed By: #### 5 7021-8 #### CHRISTIE WATSON ([id number]) [facility] ([facility]) [address] [place] [address] 72922 Eosinophils (Bld) [#/Vol] 0.23 x10*3/uL Normal 0.00-0.70 [facility] Comment on above: Performed By: #### 5 7021-8 #### CHRISTIE WATSON ([id number]) [facility] ([facility]) [address] [place] [address] 73821 Eosinophils/100 WBC (Bld) 2.5 % Normal 0.0-6.0 [facility] Comment on above: Performed By: #### 5 7021-8 #### CHRISTIE WATSON ([id number]) [facility] ([facility]) [address] [place] [address] 27589 Erythrocyte distribution width (RBC) [Ratio] 14.0 % Normal 11.5-14.5 [facility] Comment on above: Performed By: #### 5 7021-8 #### CHRISTIE WATSON ([id number]) [facility] ([facility]) [address] [place] [address] 11720 Hematocrit (Bld) [Volume fraction] 43.6 % Normal 41.0-52.0 [facility] Comment on above: Performed By: #### 5 7021-8 #### CHRISTIE WATSON ([id number]) [facility] ([facility]) [address] [place] [address] 60690 Hemoglobin (Bld) [Mass/Vol] 14.7 g/dL Normal 13.5-17.5 [facility] Comment on above: Performed By: #### 5 7021-8 #### CHRISTIE WATSON ([id number]) [facility] ([facility]) [address] [place] [address] Immature granulocytes (Bld) [#/Vol] 0.02 x10*3/uL Normal 0.00-0.70 [facility] Comment on above: Performed By: #### 5 7021-8 #### CHRISTIE WATSON ([id number]) [facility] ([facility]) [address] [place], [place] [id number] Immature granulocytes/100 WBC (Bld) 0.2 % Normal 0.0-0.9 [facility] Comment on above: Result Comment: Reshma ture Granulocyte Count (IG) includes promyelocytes, myelocytes and metamyelocytes but does not include bands. Percent differential counts (%) should be interpreted in the context of the absolute cell counts (cells/UL). Performed By: #### 5 7021-8 #### CHRISTIE WATSON ([id number]) [facility] ([facility]) [address] [place] [address] 80193 Lymphocytes (Bld) [#/Vol] 2.64 x10*3/uL Normal 1.20-4.80 [facility] Comment on above: Performed By: #### 5 7021-8 #### CHRISTIE WATSON ([id number]) [facility] ([facility]) [address] [place] [address] 34462 Lymphocytes/100 WBC (Bld) 28.4 % Normal 13.0-44.0 [facility] Comment on above: Performed By: #### 5 7021-8 #### CHRISTIE WATSON ([id number]) [facility] ([facility]) [address] [place] [address] 65109 MCH (RBC) [Entitic mass] 31.7 pg Normal 26.0-34.0 [facility] Comment on above: Performed By: #### 5 7021-8 #### CHRISTIE WATSON ([id number]) [facility] ([facility]) [address] [place] [address] 40071 MCHC (RBC) [Mass/Vol] 33.7 g/dL Normal 32.0-36.0 [facility] Comment on above: Performed By: #### 5 7021-8 #### CHRISTIE WATSON ([id number]) [facility] ([facility]) [address] [place] [address] 44579 MCV (RBC) [Entitic vol] 94 fL Normal 80-100 [facility] Comment on above: Performed By: #### 5 7021-8 #### CHRISTIE WATSON ([id number]) [facility] ([facility]) [address] [place] [address] 39280 Monocytes (Bld) [#/Vol] 0.87 x10*3/uL Normal 0.10-1.00 [facility] Comment on above: Performed By: #### 5 7021-8 #### CHRISTIE WATSON ([id number]) [facility] ([facility]) [address] [place] [address] 24280 Monocytes/100 WBC (Bld) 9.4 % Normal 2.0-10.0 [facility] Comment on above: Performed By: #### 5 7021-8 #### CHRISTIE WATSON ([id number]) [facility] ([facility]) [address] [place] [address] 86704 Neutrophils (Bld) [#/Vol] 5.50 x10*3/uL Normal 1.20-7.70 [facility] Comment on above: Result Comment: Perc ent differential counts (%) should be interpreted in the context of the absolute cell counts (cells/uL). Performed By: #### 5 7021-8 #### CHRISTIE WATSON ([id number]) [facility] ([facility]) [address] [place] [address] 63048 Neutrophils/100 WBC (Bld) 59.1 % Normal 40.0-80.0 [facility] Comment on above: Performed By: #### 5 7021-8 #### CHRISTIE WATSON ([id number]) [facility] ([facility]) [address] [place] [address] 73037 Nucleated RBC/100 WBC (Bld) [Ratio] 0.0 /100 WBCs Normal 0.0-0.0 [facility] Comment on above: Performed By: #### 5 7021-8 #### CHRISTIE WATSON ([id number]) [facility] ([facility]) [address] [place] [address] 20656 Platelets (Bld) [#/Vol] 189 x10*3/uL Normal 150-450 [facility] Comment on above: Performed By: #### 5 7021-8 #### CHRISTIE WATSON ([id number]) [facility] ([facility]) [address] [place] [address] 44079 RBC (Bld) [#/Vol] 4.64 x10*6/uL Normal 4.50-5.90 [facility] Comment on above: Performed By: #### 5 7021-8 #### CHRISTIE WATSON ([id number]) [facility] ([facility]) [address] [place] [address] 93568 WBC (Bld) [#/Vol] 9.3 x10*3/uL Normal 4.4-11.3 [facility] Comment on above: Performed By: #### 5 7021-8 #### CHRISTIE WATSON ([id number]) [facility] ([facility]) [address] [place] [address] ABDOMEN PELVIS WO IV CONT Maricel 03-25-2025 CT ABDOMEN PELVIS WO IV CONTRAST Interpreted By: Ruano, Maykel, STUDY: CT ABDOMEN PELVIS WO IV CONTRAST; 03/25/2025 10:02 pm INDICATION: Signs/Symptoms:Hematuria history of kidney stones. COMPARISON: CT abdomen pelvis 08/10/2017. ACCESSION NUMBER(S): [id number] ORDERING CLINICIAN: ZAK ALVAREZ TECHNIQUE: CT of the abdomen and pelvis was performed. Contiguous axial images were obtained through the abdomen and pelvis. Coronal and sagittal reconstructions at 3 mm slice thickness were performed. No intravenous contrast was administered. FINDINGS: Please note that the evaluation of vessels, lymph nodes and organs is limited without intravenous contrast. LOWER CHEST: There is no acute abnormality in the visualized portions of lower chest. ABDOMEN: LIVER: The liver is enlarged and normal in contour. BILE DUCTS: The intrahepatic and extrahepatic ducts are not dilated. GALLBLADDER: Gallbladder is filled with calculi. No gallbladder wall thickening. PANCREAS: The pancreas is not enlarged. SPLEEN: Within normal limits. ADRENAL GLANDS: Within normal limits. KIDNEYS AND URETERS: The kidneys are normal in size. Multiple bilateral renal cysts including 7.6 cm right midpole pararenal cyst and 3.6 cm left anterior lower pole renal cyst.. No hydroureteronephrosis. Multiple bilateral nonobstructing intrarenal calculi. PELVIS: BLADDER: The urinary bladder is incompletely distended, limiting assessment. REPRODUCTIVE ORGANS: Prostate is enlarged measuring 5.0 cm transversely. BOWEL: The stomach is incompletely distended, limiting evaluation for focal wall thickening. There is no bowel wall dilatation or obstruction. The appendix is normal. Formed stool throughout the colon without evidence of wall thickening or acute inflammatory change. Sigmoid diverticulosis without diverticulitis. VESSELS: The abdominal aorta is normal in caliber. PERITONEUM/RETROPERITONEUM/ LYMPH NODES: There is no ascites or intraperitoneal free air. There is no lymphadenopathy by CT criteria. ABDOMINAL WALL: The abdominal wall soft tissues appear normal. BONES: No suspicious osseous lesions are identified. Vertebral body heights are maintained. Mild osseous demineralization/osteopenia . IMPRESSION: 1. No acute abnormality in the abdomen/pelvis. Multiple bilateral intrarenal calculi without hydronephrosis or obstructive nephrolithiasis. Bilateral renal cysts. Prostatomegaly, clinical correlation for prostate etiology of hematuria recommended. 2. Cholelithiasis without cholecystitis. Hepatomegaly. Signed by: Maykel Ruano 03/25/2025 10:47 PM Dictation workstation: [id number] [facility] CT Abdomen WO contraston 1. No acute abnormal ity in the abdomen/pelvis. Multiple bilateral intrarenal calculi without hydronephrosis or obstructive nephrolithiasis. Bilateral renal cysts. Prostatomegaly, clinical correlation for prostate etiology of hematuria recommended. 2. Cholelithiasis without cholecystitis. Hepatomegaly. Signed by: Maykel Ruano 03/25/2025 10:47 PM Dictation workstation: [id number] Interpreted By: Maykel Handley, STUDY: CT ABDOMEN PELVIS WO IV CONTRAST; 03/25/2025 10:02 pm INDICATION: Signs/Symptoms:Hematuria history of kidney stones. COMPARISON: CT abdomen pelvis 08/10/2017. ACCESSION NUMBER(S): [id number] ORDERING CLINICIAN: ZAK ALVAREZ TECHNIQUE: CT of the abdomen and pelvis was performed. Contiguous axial images were obtained through the abdomen and pelvis. Coronal and sagittal reconstructions at 3 mm slice thickness were performed. No intravenous contrast was administered. FINDINGS: Please note that the evaluation of vessels, lymph nodes and organs is limited without intravenous contrast. LOWER CHEST: There is no acute abnormality in the visualized portions of lower chest. ABDOMEN: LIVER: The liver is enlarged and normal in contour. BILE DUCTS: The intrahepatic and extrahepatic ducts are not dilated. GALLBLADDER: Gallbladder is filled with calculi. No gallbladder wall thickening. PANCREAS: The pancreas is not enlarged. SPLEEN: Within normal limits. ADRENAL GLANDS: Within normal limits. KIDNEYS AND URETERS: The kidneys are normal in size. Multiple bilateral renal cysts including 7.6 cm right midpole pararenal cyst and 3.6 cm left anterior lower pole renal cyst.. No hydroureteronephrosis. Multiple bilateral nonobstructing intrarenal calculi. PELVIS: BLADDER: The urinary bladder is incompletely distended, limiting assessment. REPRODUCTIVE ORGANS: Prostate is enlarged measuring 5.0 cm transversely. BOWEL: The stomach is incompletely distended, limiting evaluation for focal wall thickening. There is no bowel wall dilatation or obstruction. The appendix is normal. Formed stool throughout the colon without evidence of wall thickening or acute inflammatory change. Sigmoid diverticulosis without diverticulitis. VESSELS: The abdominal aorta is normal in caliber. PERITONEUM/RETROPERITONEUM/ LYMPH NODES: There is no ascites or intraperitoneal free air. There is no lymphadenopathy by CT criteria. ABDOMINAL WALL: The abdominal wall soft tissues appear normal. BONES: No suspicious osseous lesions are identified. Vertebral body heights are maintained. Mild osseous demineralization/osteopenia . [facility] Maykel Ruano, DO - 03/25/2025 Interpreted By: Maykel Ruano, STUDY: CT ABDOMEN PELVIS WO IV CONTRAST; 03/25/2025 10:02 pm INDICATION: Signs/Symptoms:Hematuria history of kidney stones. COMPARISON: CT abdomen pelvis 08/10/2017. ACCESSION NUMBER(S): [id number] ORDERING CLINICIAN: ZAK ALVAREZ TECHNIQUE: CT of the abdomen and pelvis was performed. Contiguous axial images were obtained through the abdomen and pelvis. Coronal and sagittal reconstructions at 3 mm slice thickness were performed. No intravenous contrast was administered. FINDINGS: Please note that the evaluation of vessels, lymph nodes and organs is limited without intravenous contrast. LOWER CHEST: There is no acute abnormality in the visualized portions of lower chest. ABDOMEN: LIVER: The liver is enlarged and normal in contour. BILE DUCTS: The intrahepatic and extrahepatic ducts are not dilated. GALLBLADDER: Gallbladder is filled with calculi. No gallbladder wall thickening. PANCREAS: The pancreas is not enlarged. SPLEEN: Within normal limits. ADRENAL GLANDS: Within normal limits. KIDNEYS AND URETERS: The kidneys are normal in size. Multiple bilateral renal cysts including 7.6 cm right midpole pararenal cyst and 3.6 cm left anterior lower pole renal cyst.. No hydroureteronephrosis. Multiple bilateral nonobstructing intrarenal calculi. PELVIS: BLADDER: The urinary bladder is incompletely distended, limiting assessment. REPRODUCTIVE ORGANS: Prostate is enlarged measuring 5.0 cm transversely. BOWEL: The stomach is incompletely distended, limiting evaluation for focal wall thickening. There is no bowel wall dilatation or obstruction. The appendix is normal. Formed stool throughout the colon without evidence of wall thickening or acute inflammatory change. Sigmoid diverticulosis without diverticulitis. VESSELS: The abdominal aorta is normal in caliber. PERITONEUM/RETROPERITONEUM/ LYMPH NODES: There is no ascites or intraperitoneal free air. There is no lymphadenopathy by CT criteria. ABDOMINAL WALL: The abdominal wall soft tissues appear normal. BONES: No suspicious osseous lesions are identified. Vertebral body heights are maintained. Mild osseous demineralization/osteopenia . IMPRESSION: 1. No acute abnormality in the abdomen/pelvis. Multiple bilateral intrarenal calculi without hydronephrosis or obstructive nephrolithiasis. Bilateral renal cysts. Prostatomegaly, clinical correlation for prostate etiology of hematuria recommended. 2. Cholelithiasis without cholecystitis. Hepatomegaly. Signed by: Maykel Ruano 03/25/2025 10:47 PM Dictation workstation: [id number] [facility] Work Phone: Radiology Study observation (narrative) [facility] Work Phone: CT Abdomen WO contrastOrdere d By: Maykel Ruano on 03-25-2025 [facility] Work Phone: No Panel Informationon 03-25 Interpretation and review of laboratory results Abnormal [facility] Urinalysis complete W Reflex Culture panel (U)on 03-25-2025 Appearance (U) Turbid Abnormal Clear [facility] Bilirubin (U) [Mass/Vol] Negative NEGATIVE mg/dL [facility] Color (U) Light-Brown Abnormal Light-Yellow , Yellow, Dark-Yellow [facility] Glucose Auto test strip (U) [Mass/Vol] Normal Normal mg/dL [facility] Ketones (U) [Mass/Vol] Negative NEGATIVE mg/dL [facility] Leukocyte esterase Auto test strip Ql (U) 250 Javad/uL Abnormal NEGATIVE [facility] Nitrite Auto test strip Ql (U) Negative NEGATIVE [facility] pH (U) 6.5 [pH] 5.0, 5.5, 6.0, 6.5, 7.0, 7.5, 8.0 [facility] Protein (U) [Mass/Vol] 30 (1+) Abnormal NEGATIVE, 10 (TRACE), 20 (TRACE) mg/dL [facility] RBC (U) [#/Vol] OVER (3+) Abnormal NEGATIVE mg/dL [facility] Specific gravity (U) [Rel density] 1.012 1.005 - 1.035 [facility] Urobilinogen (U) [Mass/Vol] Normal Normal mg/dL [facility] OVER is reported whe n the result is greater than the clinically reportable range. [facility] Appearance (U) Turbid Normal Clear [facility] Comment on above: Order Comment: OVER is reported when the result is greater than the clinically reportable range. Performed By: #### 5 8077-9 #### CHRISTIE WATSON ([id number]) [facility] ([facility]) [address] [place] [address] Bilirubin (U) [Mass/Vol] Negative Normal NEGATIVE [facility] Comment on above: Order Comment: OVER is reported when the result is greater than the clinically reportable range. Performed By: #### 5 8077-9 #### CHRISTIE WATSON ([id number]) [facility] ([facility]) [address] [place] [address] Color (U) Light-Brown Normal Light-Yellow , Yellow, Dark-Yellow [facility] Comment on above: Order Comment: OVER is reported when the result is greater than the clinically reportable range. Performed By: #### 5 8077-9 #### CHRISTIE WATSON ([id number]) [facility] ([facility]) [address] [place] [address] Glucose Auto test strip (U) [Mass/Vol] Normal Normal Normal [facility] Comment on above: Order Comment: OVER is reported when the result is greater than the clinically reportable range. Performed By: #### 5 8077-9 #### CHRISTIE WATSON ([id number]) [facility] ([facility]) [address] [place] [address] Ketones (U) [Mass/Vol] Negative Normal NEGATIVE [facility] Comment on above: Order Comment: OVER is reported when the result is greater than the clinically reportable range. Performed By: #### 5 8077-9 #### CHRISTIE WATSON ([id number]) [facility] ([facility]) [address] [place], [place] [address] Leukocyte esterase Auto test strip Ql (U) 250 Javad/uL Abnormal NEGATIVE [facility] Comment on above: Order Comment: OVER is reported when the result is greater than the clinically reportable range. Performed By: #### 5 8077-9 #### CHRISTIE WATSON ([id number]) [facility] ([facility]) [address] [place] [address] Nitrite Auto test strip Ql (U) Negative Normal NEGATIVE [facility] Comment on above: Order Comment: OVER is reported when the result is greater than the clinically reportable range. Performed By: #### 5 8077-9 #### CHRISTIE WATSON ([id number]) [facility] ([facility]) [address] [place] [address] 67616 pH (U) 6.5 [pH] Normal 5.0, 5.5, 6.0, 6.5, 7.0, 7.5, 8.0 [facility] Comment on above: Order Comment: OVER is reported when the result is greater than the clinically reportable range. Performed By: #### 5 8077-9 #### CHRISTIE WATSON ([id number]) [facility] ([facility]) [address] [place] [address] 69473 Protein (U) [Mass/Vol] 30 (1+) Abnormal NEGATIVE, 10 (TRACE), 20 (TRACE) [facility] Comment on above: Order Comment: OVER is reported when the result is greater than the clinically reportable range. Performed By: #### 5 8077-9 #### CHRISTIE WATSON ([id number]) [facility] ([facility]) [address] [place] [address] 59813 RBC (U) [#/Vol] OVER (3+) Abnormal NEGATIVE [facility] Comment on above: Order Comment: OVER is reported when the result is greater than the clinically reportable range. Performed By: #### 5 8077-9 #### CHRISTIE WATSON ([id number]) [facility] ([facility]) [address] [place] [address] 67601 Specific gravity (U) [Rel density] 1.012 Normal 1.005-1.035 [facility] Comment on above: Order Comment: OVER is reported when the result is greater than the clinically reportable range. Performed By: #### 5 8077-9 #### CHRISTIE WATSON ([id number]) [facility] ([facility]) [address] [place] [address] 17458 Urobilinogen (U) [Mass/Vol] Normal Normal Normal [facility] Comment on above: Order Comment: OVER is reported when the result is greater than the clinically reportable range. Performed By: #### 5 8077-9 #### CHRISTIE WATSON ([id number]) [facility] ([facility]) [address] [place] [address] Urinalysis microscopic panel Auto Ql (U)on 03-25-2025 Bacteria Auto (Urine sed) [#/Area] 1+ Abnormal NONE SEEN /HPF [facility] Mucus Auto (Urine sed) [#/Area] FEW Reference range not established. /LPF [facility] RBC Auto (Urine sed) [#/Area] >20 Abnormal NONE, 1-2, 3-5 /HPF [facility] WBC Auto (Urine sed) [#/Area] 21-50 Abnormal 1-5, NONE /HPF [facility] Bacteria Auto (Urine sed) [#/Area] 1+ /HPF Abnormal NONE SEEN [facility] Comment on above: Performed By: #### 5 3315-8 #### CHRISTIE WATSON ([id number]) [facility] ([facility]) [address] [place] [address] Mucus Auto (Urine sed) [#/Area] FEW Normal Reference range not established. [facility] Comment on above: Performed By: #### 5 3315-8 #### CHRISTIE WATSON ([id number]) [facility] ([facility]) [address] [place] [address] RBC Auto (Urine sed) [#/Area] >20 Abnormal NONE, 1-2, 3-5 [facility] Comment on above: Performed By: #### 5 3315-8 #### CHRISTIE WATSON ([id number]) [facility] ([facility]) [address] [place] [address] WBC Auto (Urine sed) [#/Area] 21-50 Abnormal 1-5, NONE [facility] Comment on above: Performed By: #### 5 3315-8 #### CHRISTIE WATSON ([id number]) [facility] ([facility]) [address] [place] [address] XR ABDOMEN 1 VIEWon 01-15-20 25 XR ABDOMEN 1 VIEW Interpreted By: Estela Herrera, STUDY: XR ABDOMEN 1 VIEW; 09/13/2024 10:05 am. 2 views. INDICATION: Signs/Symptoms:KIDNEY STONES. COMPARISON: 02/23/2024 ACCESSION NUMBER(S): [id number] ORDERING CLINICIAN: ISABELA BAZAN FINDINGS: Bowel gas pattern is nonspecific and nonobstructive. There are multiple bilateral intrarenal calculi. There is a group of approximately 5 calculi in the lower pole of the right kidney. These measure 1.2 cm, 0.9 cm, 0.9 cm, 0.4 cm and 0.4 cm. These were all seen previously. There is a 1 cm calculus in the interpolar region of the right kidney, seen previously. There is a 0.4 cm calculus in the lower pole of the left kidney, seen previously. Visualized lungs are clear. Osseous structures demonstrate no acute bony changes. IMPRESSION: Nonspecific, nonobstructive bowel gas pattern. Unchanged appearance of bilateral intrarenal calculi compared to 02/23/2024. MACRO: None Signed by: Estela Elkins 09/15/2024 8:10 AM Dictation workstation: [id number] [facility] Hemoglobin A1Con 06-27-2024 Glucose [Mass/Vol] 103 mg/dL Normal [facility] Comment on above: Result Comment: The ADA and AACC recommend providing the estimated average glucose result to permit better patient understanding of their HBA1c result. Performed at [facility], [address] [place], [place] [id number] . HbA1c (Bld) [Mass fraction] 5.2 % Normal 4.0-6.[address] [facility] Comprehensive Metabolic Pane l Fastingon 06-26-2024 Anion gap [Moles/Vol] 8 mmol/L Low 9-[address] [facility] Comment on above: Performed By: #### C MPF #### [facility] [address] [place] [address] Albumin [Mass/Vol] 4.1 g/dL Normal 3.5-4.[address] [facility] Comment on above: Performed By: #### C MPF #### [facility] [address] [place] [address] ALP [Catalytic activity/Vol] 124 U/L Critically high 35-[address] [facility] Comment on above: Performed By: #### C MPF #### [facility] [address] [place] [address] ALT [Catalytic activity/Vol] 8 U/L Normal 0-[address] [facility] Comment on above: Performed By: #### C MPF #### [facility] [address] [place] [address] AST [Catalytic activity/Vol] 19 U/L Normal 0-[address] [facility] Comment on above: Performed By: #### C MPF #### [facility] [address] [place] [address] Bilirubin [Mass/Vol] 1.2 mg/dL Critically high 0.2-0.[address] [facility] Comment on above: Performed By: #### C MPF #### [facility] [address] [place] [address] Calcium [Mass/Vol] 9.2 mg/dL Normal 8.5-9.[address] [facility] Comment on above: Performed By: #### C MPF #### [facility] [address] [place] [address] Chloride [Moles/Vol] 107 mmol/L Normal 95-[address] [facility] Comment on above: Performed By: #### C MPF #### [facility] [address] [place] [address] CO2 [Moles/Vol] 26 mmol/L Normal 20-31 [facility] Comment on above: Performed By: #### C MPF #### [facility] [address] [place] [address] Creatinine [Mass/Vol] 1.05 mg/dL Normal 0.70-1.[address] [facility] Comment on above: Performed By: #### C MPF #### [facility] [address] [place] [address] GFR 77.5 Normal >[address] [facility] Comment on above: Result Comment: Yoselin atric calculator link https://www.kidney.org/professionals/kdoqi/gfr_calculatorped Effective Jun 01, 2022 These results are not intended for use in patients <18 years of age. eGFR results are calculated without a race factor using the 2020 CKD-EPI equation. Careful clinical correlation is recommended, particularly when comparing to results calculated using previous equations. The CKD-EPI equation is less accurate in patients with extremes of muscle mass, extra-renal metabolism of creatinine, excessive creatinine ingestion, or following therapy that affects renal tubular secretion. Performed By: #### C MPF #### [facility] [address] [place] [address] Globulin (S) [Mass/Vol] 2.3 g/dL Normal 2.3-3.[address] [facility] Comment on above: Performed By: #### C MPF #### [facility] [address] [place] [address] Glucose [Mass/Vol] 97 mg/dL Normal 70-[address] [facility] Comment on above: Performed By: #### C MPF #### [facility] [address] [place] [address] Potassium [Moles/Vol] 4.5 mmol/L Normal 3.4-4.[address] [facility] Comment on above: Performed By: #### C MPF #### [facility] [address] [place] [address] Protein [Mass/Vol] 6.4 g/dL Normal 6.3-8.[address] [facility] Comment on above: Performed By: #### C MPF #### [facility] [address] [place] [address] Sodium [Moles/Vol] 141 mmol/L Normal 135-[address] [facility] Comment on above: Performed By: #### C MPF #### [facility] [address] [place] [address] Urea nitrogen [Mass/Vol] 12 mg/dL Normal 8-[address] [facility] Comment on above: Performed By: #### C MPF #### [facility] [address] [place] [address] Comprehensive metabolic 2000 panelon 06-26-2024 Albumin [Mass/Vol] 4.1 g/dL 3.5 - 4.6 g/dL [facility] ALP [Catalytic activity/Vol] 124 U/L High 35 - 104 U/L [facility] ALT [Catalytic activity/Vol] 8 U/L 0 - 41 U/L [facility] AST [Catalytic activity/Vol] 19 U/L 0 - 40 U/L [facility] Bilirubin [Mass/Vol] 1.2 mg/dL High 0.2 - 0 .7 mg/dL [facility] Calcium [Mass/Vol] 9.2 mg/dL 8.5 - 9.9 mg/dL [facility] Chloride [Moles/Vol] 107 mmol/L [facility] CO2 [Moles/Vol] 26 mmol/L [facility] Creatinine [Mass/Vol] 1.05 mg/dL 0.70 - 1.20 mg/dL [facility] GFR/1.73 sq M.predicted among non-blacks MDRD (S/P/Bld) [Vol rate/Area] 77.5 mL/min/{1.73_m2} 60 - PINF [facility] Comment on above: Pediatric calculator link https://www.kidney.org/professionals/kdoqi/gfr_calculatorped Effective Jun 01, 2022 These results are not intended for use in patients <18 years of age. eGFR results are calculated without a race factor using the 2020 CKD-EPI equation. Careful clinical correlation is recommended, particularly when comparing to results calculated using previous equations. The CKD-EPI equation is less accurate in patients with extremes of muscle mass, extra-renal metabolism of creatinine, excessive creatinine ingestion, or following therapy that affects renal tubular secretion. Globulin (S) [Mass/Vol] 2.3 g/dL 2.3 - 3.5 g/dL [facility] Glucose [Mass/Vol] 97 mg/dL 70 - 99 mg/dL [facility] Potassium [Moles/Vol] 4.5 mmol/L [facility] Protein [Mass/Vol] 6.4 g/dL 6.3 - 8.0 g/dL [facility] Sodium [Moles/Vol] 141 mmol/L [facility] Urea nitrogen [Mass/Vol] 12 mg/dL 8 - 23 mg/dL [facility] Lipid Panel Fastingon 2023 Cholesterol [Mass/Vol] 113 mg/dL Normal 0-199 [facility] Comment on above: ATP III Cholesterol classification is Desirable. Result Comment: ATP III Cholesterol classification is Desirable. Performed By: #### L IPDF #### [facility] [address] [facility] [address] HDL Cholesterol Fasting 33 mg/dL Low 40-[address] [facility] Comment on above: Result Comment: ATP III HDL Cholestrol Classification is low. Expected Values: Males: >55 = No Risk 35-55 = Moderate Risk <35 = High Risk Females: >65 = No Risk 45-65 = Moderate Risk <45 = High Risk NCEP Guidelines: Third Report December 2000 >59 = negative risk factor for CHD <40 = major risk factor for CHD Performed By: #### L IPDF #### [facility] [address] [place] [address] LDL Cholesterol (Calculated) Fasting 67 mg/dL Normal 0-[address] [facility] Comment on above: Result Comment: ATP III LDL Classification is Optimal. Performed By: #### L IPDF #### [facility] [address] [place] [address] Triglycerides Fasting 65 mg/dL Normal 0-[address] [facility] Comment on above: Result Comment: ATP III Triglycerides Classification is Normal. Performed By: #### L IPDF #### [facility] [address] [place] [address] Lipid, Fastingon 06-26-2024 Cholesterol in HDL [Mass/Vol] 33 mg/dL Low 40 - 59 mg/dL [facility] Comment on above: ATP III HDL Cholestr ol Classification is low. Expected Values: Males: >55 = No Risk 35-55 = Moderate Risk <35 = High Risk Females: >65 = No Risk 45-65 = Moderate Risk <45 = High Risk NCEP Guidelines: Third Report December 2000 >59 = negative risk factor for CHD <40 = major risk factor for CHD Cholesterol in LDL [Mass/Vol] 67 mg/dL 0 - 129 mg/dL [facility] [employer] [employer] Comment on above: ATP III LDL Classifi cation is Optimal. Triglyceride, Fasting 65 mg/dL 0 - 150 mg/dL [facility] Comment on above: ATP III Triglyceride s Classification is Normal. No Panel Informationon 06-26 Interpretation and review of laboratory results Abnormal [facility] [employer] [facility] [employer] XR Abdomen Single viewon 1. Multiple calcific ations in the right kidney in the lower and midportions and 1 calcification in the lower pole of the left kidney. Findings unchanged from 10/07/2023. MACRO: None Signed by: Sundar Jacobsen 02/23/2024 3:35 PM Dictation workstation: [id number] [place] Interpreted By: Sundar Smith, STUDY: XR ABDOMEN 1 VIEW; 02/23/2024 10:34 am INDICATION: Signs/Symptoms:KIDNEY STONES. COMPARISON: 10/07/2023 ACCESSION NUMBER(S): [id number] ORDERING CLINICIAN: ISABELA BAZAN FINDINGS: Nonobstructive bowel gas pattern. A cluster of calcifications are seen in the lower pole of the right kidney, with individual calculi measuring about 7-8 mm in size. There are at least 4 calculi seen in the lower pole. In the mid right kidney a calculus is seen measuring about 11 mm A 3.9 mm calcification is seen in the lower pole of the left kidney. Visualized lungs are clear. Osseous structures demonstrate no acute bony changes. MMODAL Sundar Jacobsen MD - 02/23/2024 Interpreted By: Sundar Jacobsen, STUDY: XR ABDOMEN 1 VIEW; 02/23/2024 10:34 am INDICATION: Signs/Symptoms:KIDNEY STONES. COMPARISON: 10/07/2023 ACCESSION NUMBER(S): [id number] ORDERING CLINICIAN: ISABELA BAZAN FINDINGS: Nonobstructive bowel gas pattern. A cluster of calcifications are seen in the lower pole of the right kidney, with individual calculi measuring about 7-8 mm in size. There are at least 4 calculi seen in the lower pole. In the mid right kidney a calculus is seen measuring about 11 mm A 3.9 mm calcification is seen in the lower pole of the left kidney. Visualized lungs are clear. Osseous structures demonstrate no acute bony changes. IMPRESSION: 1. Multiple calcifications in the right kidney in the lower and midportions and 1 calcification in the lower pole of the left kidney. Findings unchanged from 10/07/2023. MACRO: None Signed by: Sundar Jacobsen 02/23/2024 3:35 PM Dictation workstation: [id number] [facility] Work Phone: [phone] Radiology Study observation (narrative) [facility] Work Phone: [phone] XR Abdomen Single viewOrdere d By: Sundar Jacobsen on 02-23-2024 [facility] Work Phone: POCT UA Automated manually r esultedon 12-16-2023 Appearance (U) Clear Clear [facility] Work Phone: [phone] Glucose Test strip (U) [Mass/Vol] Negative NEGATIVE mg/dl [facility] Work Phone: [phone] Hemoglobin Ql (U) SMALL (1+) Abnormal NEGATIVE [facility] Work Phone: [phone] Interpretation and review of laboratory results Abnormal [facility] Work Phone: [phone] Leukocyte esterase Test strip Ql (U) TRACE Abnormal NEGATIVE [facility] Work Phone: [phone] Nitrite Ql (U) Negative NEGATIVE [facility] Work Phone: [phone] pH (U) 7.0 [pH] No Reference Range Established [facility] Work Phone: [phone] POC Bilirubin, Urine Negative NEGATIVE [facility] Work Phone: [phone] POC Color, Urine Yellow Straw, Yellow, Light-Yellow [facility] Work Phone: [phone] POC Ketones, Urine Negative NEGATIVE mg/dl [facility] Work Phone: [phone] POC Protein, Urine Negative NEGATIVE, 30 (1+) mg/dl [facility] Work Phone: POC Specific [place], Urine 1.020 1.005 - 1.035 [facility] Work Phone: POC Urobilinogen, Urine 0.2 0.2, 1.0 EU/DL [facility] Work Phone: [facility] Work Phone: No Panel Informationon 11-08 Interpretation and review of laboratory results Abnormal [facility] Urinalysis complete W Reflex Culture panel (U)on 11-09-2023 Appearance (U) Hazy Abnormal Clear [facility] Bilirubin (U) [Mass/Vol] Negative NEGATIVE [facility] Color (U) Yellow Straw, Yellow [facility] Glucose Auto test strip (U) [Mass/Vol] Negative NEGATIVE mg/dL [facility] Ketones (U) [Mass/Vol] Negative NEGATIVE mg/dL [facility] Leukocyte esterase Auto test strip Ql (U) MODERATE (2+) Abnormal NEGATIVE [facility] Nitrite Auto test strip Ql (U) Negative NEGATIVE [facility] pH (U) 6.0 [pH] 5.0, 5.5, 6.0, 6.5, 7.0, 7.5, 8.0 [facility] Protein (U) [Mass/Vol] 30 (1+) Abnormal NEGATIVE mg/dL [facility] RBC (U) [#/Vol] Negative NEGATIVE [facility] Specific gravity (U) [Rel density] 1.015 1.005 - 1.035 [facility] Urobilinogen (U) [Mass/Vol] mg/dL NINF - 2.0 mg/dL [facility] Urinalysis microscopic panel Auto Ql (U)on 11-09-2023 Bacteria Auto (Urine sed) [#/Area] 3+ Abnormal NONE SEEN /HPF [facility] Leukocyte clumps Auto (Urine sed) [#/Area] OCCASIONAL Reference range not established. /HPF [facility] Mucus Auto (Urine sed) [#/Area] 4+ Reference range not established. /LPF [facility] RBC Auto (Urine sed) [#/Area] 11-20 Abnormal NONE, 1-2, 3-5 /HPF [facility] WBC Auto (Urine sed) [#/Area] >50 Abnormal 1-5, NONE /HPF [facility] Bacteria identifiedon 2023 Bacteria identified Cx Nom (U) Test: Urine Culture Specimen Source: Clean Catch/Voided Specimen Type: Urine Specimen Date: 11/08/2023 12:19 PM Result Date: 11/10/2023 7:53 AM Result Status: Final result Abnormal: No Resulting Lab: [facility] [id number] [place], [place] [id number] CULTURE No significant growth Normal [facility] Comment on above: Performed By: #### 6 30-4 #### SULLY Schmidt ([id number]) [facility] ([facility]) [address] [place] [address] POCT UA Automated manually r esultedon 10-07-2023 Appearance (U) Clear Clear [facility] Work Phone: [phone] Glucose Test strip (U) [Mass/Vol] Negative NEGATIVE mg/dl [facility] Work Phone: [phone] Hemoglobin Ql (U) MODERATE (2+) Abnormal NEGATIVE [facility] Work Phone: [phone] Interpretation and review of laboratory results Abnormal [facility] Work Phone: [phone] Leukocyte esterase Test strip Ql (U) TRACE Abnormal NEGATIVE [facility] Work Phone: [phone] Nitrite Ql (U) Negative NEGATIVE [facility] Work Phone: [phone] pH (U) 7.0 [pH] No Reference Range Established [facility] Work Phone: [phone] POC Bilirubin, Urine Negative NEGATIVE [facility] Work Phone: [phone] POC Color, Urine Yellow Straw, Yellow, Light-Yellow [facility] Work Phone: POC Ketones, Urine Negative NEGATIVE mg/dl [facility] Work Phone: POC Protein, Urine Negative NEGATIVE, 30 (1+) mg/dl [facility] Work Phone: POC Specific [place], Urine 1.020 1.005 - 1.035 [facility] Work Phone: POC Urobilinogen, Urine 0.2 0.2, 1.0 EU/DL [facility] Work Phone: [facility] Work Phone: Prostate specific Agon 10-07 Prostate specific Ag [Mass/Vol] 1.98 ng/mL Normal <=4.00 [facility] Comment on above: Order Comment: The DA requires that the method used for PSA assay be reported to the physician. Values obtained with different assay methods must not be used interchangeably. This test was performed at [facility] using the Zyngenia PSA assay is a two-site immunoenzymatic sandwich assay. The assay is approved for measurement of prostate-specific antigen (PSA)in serum and may be used in conjunction with a digital rectal examination in men 50 years and older as an aid in detection of prostate cancer. 2-Rjduz-xrvhyxwdm inhibitors (e.g. Proscar, Finasteride, Avodart, Dutasteride and Lianne) for the treatment of BPH have been shown to lower PSA levels by an average of 50% after 6 months of treatment. Performed By: #### 2 857-1 #### SORIANO SHIRLEY ([id number]) [facility] ([facility]) [address] [place] [address] Gammaglutamyl Transon 2023 Amylase [Catalytic activity/Vol] 13 U/L Normal 8-61 [facility] Comment on above: Result Comment: Perf ormed at [facility], [address] [place] [address] . Surgical Specimenon 08-17-20 Surgical Specimen [facility] Services [facility] [place] [address] FINAL SURGICAL PATHOLOGY REPORT Patient Name: RAMON COSTA Accession No: [id number] Age Sex: 1955 Location: [facility] NON Account No: [id number] Collected: 08/17/2023 [facility] Rec No: [id number] Received: 08/18/2023 Attend Phys: YASMANY SMITH Completed: 08/19/2023 Perform Phys: YASMANY SMITH FINAL DIAGNOSIS: A GASTRIC BIOPSIES: GASTRIC MUCOSA WITH MINIMAL CHRONIC INFLAMMATION. NEGATIVE FOR HELICOBACTER PYLORI ORGANISMS. SEE COMMENT. B GASTRIC POLYP: FUNDIC GLAND POLYP. NEGATIVE FOR HELICOBACTER PYLORI ORGANISMS. SEE COMMENT C CECAL POLYP: TUBULAR ADENOMA. D TRANSVERSE COLON POLYPS: FRAGMENTS OF TUBULAR ADENOMA. E SIGMOID COLON BIOPSY: FRAGMENTS OF COLONIC MUCOSA WITH LYMPHOID NODULES. COMMENT: AN IMMUNOHISTOCHEMICAL STAIN DONE AND INTERPRETED WITH APPROPRIATE CONTROL MATERIAL ON BLOCKS A1 AND B1 TO RULE OUT THE PRESENCE OF HELICOBACTER PYLORI ORGANISMS. PSW/PSW CLINICAL INFORMATION: Stomachache. SPECIMEN: A. GASTRIC BIOPSIES B. GASTRIC POLYP C. CECAL POLYP D. TRANSVERSE COLON POLYPS E. SIGMOID COLON BIOPSY GROSS DESCRIPTION: Received are five containers labeled with the patient's name, containing formalin. A. Designated stomach is a solitary 2 mm johnson-palmer tissue fragment. Submitted in one cassette. B. Designated stomach are three palmer tissue fragments, aggregating to 4 mm. Submitted in one cassette. C. Designated cecum is a solitary 2 mm palmer tissue fragment. Submitted in one cassette. D. Designated colon are two palmer tissue fragments, aggregating to 3-4 mm. Submitted in one cassette. E. Designated sigmoid colon are three palmer tissue fragments, aggregating to 2 mm. Submitted together in one cassette. PSW/BEH CPT: 23916 X5 00629 X2 TIMO PARK M.D. 08/19/2023 Electronically signed out by Page 1 of 1 Invalid Interpretation Code [facility] Comment on above: Performed By: #### S UR #### [facility] [address] [place] [id number] Comprehensive Metabolic Pane l Fastingon 06-11-2023 Albumin [Mass/Vol] 4.2 g/dL Normal 3.5-4.6 [facility] Comment on above: Performed By: #### C MPF #### [facility] [address] [place] [address] ALP [Catalytic activity/Vol] 139 U/L Critically high 35-104 [facility] Comment on above: Performed By: #### C MPF #### [facility] [address] [place] [address] ALT [Catalytic activity/Vol] 14 U/L Normal 0-41 [facility] Comment on above: Performed By: #### C MPF #### [facility] [address] [place] [address] Anion gap [Moles/Vol] 11 mmol/L Normal 9-15 [facility] Comment on above: Performed By: #### C MPF #### [facility] [address] [place] [address] AST [Catalytic activity/Vol] 19 U/L Normal 0-40 [facility] Comment on above: Performed By: #### C MPF #### [facility] [address] [place] [address] Bilirubin [Mass/Vol] 1.0 mg/dL Critically high 0.2-0.7 [facility] Comment on above: Performed By: #### C MPF #### [facility] [address] [place] [address] Calcium [Mass/Vol] 9.1 mg/dL Normal 8.5-9.9 [facility] Comment on above: Performed By: #### C MPF #### [facility] [address] [place] [address] Chloride [Moles/Vol] 106 mmol/L Normal 95-107 [facility] Comment on above: Performed By: #### C MPF #### [facility] [address] [place] [address] CO2 [Moles/Vol] 25 mmol/L Normal 20-31 [facility] Comment on above: Performed By: #### C MPF #### [facility] [address] [place] [address] Creatinine [Mass/Vol] 0.99 mg/dL Normal 0.70-1.20 [facility] Comment on above: Performed By: #### C MPF #### [facility] [address] [place] [address] GFR >60.0 Normal >60 [facility] Comment on above: Result Comment: Yoselin atric calculator link https://www.kidney.org/professionals/kdoqi/gfr_calculatorped Effective Jun 01, 2022 These results are not intended for use in patients <18 years of age. eGFR results are calculated without a race factor using the 2020 CKD-EPI equation. Careful clinical correlation is recommended, particularly when comparing to results calculated using previous equations. The CKD-EPI equation is less accurate in patients with extremes of muscle mass, extra-renal metabolism of creatinine, excessive creatinine ingestion, or following therapy that affects renal tubular secretion. Performed By: #### C MPF #### [facility] [address] [place] [address] Globulin (S) [Mass/Vol] 2.3 g/dL Normal 2.3-3.5 [facility] Comment on above: Performed By: #### C MPF #### [facility] [address] [place] [address] Glucose [Mass/Vol] 103 mg/dL Critically high 70-99 [facility] Comment on above: Performed By: #### C MPF #### [facility] [address] [place] [address] Potassium [Moles/Vol] 4.4 mmol/L Normal 3.4-4.9 [facility] Comment on above: Performed By: #### C MPF #### [facility] [address] [place] [address] Protein [Mass/Vol] 6.5 g/dL Normal 6.3-8.0 [facility] Comment on above: Performed By: #### C MPF #### [facility] [address] [place] [address] Sodium [Moles/Vol] 142 mmol/L Normal 135-144 [facility] Comment on above: Performed By: #### C MPF #### [facility] [address] [place] [address] Urea nitrogen [Mass/Vol] 11 mg/dL Normal 8-23 [facility] Comment on above: Performed By: #### C MPF #### [facility] [address] [place] [address] Lipid Panel Fastingon 2022 Cholesterol [Mass/Vol] 112 mg/dL Normal 0-199 [facility] Comment on above: Result Comment: ATP III Cholesterol classification is Desirable. Performed By: #### L IPDF #### [facility] [address] [place] [address] HDL Cholesterol Fasting 32 mg/dL Low 40-59 [facility] Comment on above: Result Comment: ATP III HDL Cholestrol Classification is low. Expected Values: Males: >55 = No Risk 35-55 = Moderate Risk <35 = High Risk Females: >65 = No Risk 45-65 = Moderate Risk <45 = High Risk NCEP Guidelines: Third Report December 2000 >59 = negative risk factor for CHD <40 = major risk factor for CHD Performed By: #### L IPDF #### [facility] [address] [place] [address] LDL Cholesterol (Calculated) Fasting 67 mg/dL Normal 0-129 [facility] Comment on above: Result Comment: ATP III LDL Classification is Optimal. Performed By: #### L IPDF #### [facility] [address] [place] [address] Triglycerides Fasting 63 mg/dL Normal 0-150 [facility] Comment on above: Result Comment: ATP III Triglycerides Classification is Normal. Performed By: #### L IPDF #### [facility] [address] [place] [address] Prostate Specific Ag Screeno n 06-11-2023 Prostate Specific Ag Screen 1.58 ng/mL Normal 0.00-4.00 [facility] Comment on above: Performed By: #### P SA #### [facility] [address] [place] [address] Comprehensive Metabolic Pane l, Fastingon 06-15-2022 Albumin [Mass/Vol] 4 g/dL 3.5 - 4.6 g/dL [facility] ALP (Bld) [Catalytic activity/Vol] 137 U/L High 35 - 104 U/L [facility] ALT [Catalytic activity/Vol] 17 U/L 0 - 41 U/L [facility] Anion gap [Moles/Vol] 7 mmol/L Low [facility] AST [Catalytic activity/Vol] 29 U/L 0 - 40 U/L [facility] Bilirubin [Mass/Vol] 1.0 mg/dL High 0.2 - 0 .7 mg/dL [facility] Calcium [Mass/Vol] 9.3 mg/dL 8.5 - 9.9 mg/dL [facility] Chloride [Moles/Vol] 104 mmol/L [facility] CO2 [Moles/Vol] 27 mmol/L [facility] Creatinine [Mass/Vol] 0.98 mg/dL 0.7 - 1.2 mg/dL [facility] GFR/1.73 sq M.predicted MDRD (S/P/Bld) [Vol rate/Area] 60 - PINF [facility] Comment on above: Pediatric calculator link https://www.kidney.org/professionals/kdoqi/gfr_calculatorped Effective Jun 01, 2022 These results are not intended for use in patients <18 years of age. eGFR results are calculated without a race factor using the 2020 CKD-EPI equation. Careful clinical correlation is recommended, particularly when comparing to results calculated using previous equations. The CKD-EPI equation is less accurate in patients with extremes of muscle mass, extra-renal metabolism of creatinine, excessive creatinine ingestion, or following therapy that affects renal tubular secretion. Globulin (S) [Mass/Vol] 2.6 g/dL 2.3 - 3.5 g/dL [facility] Glucose [Mass/Vol] 92 mg/dL 70 - 99 mg/dL [facility] Potassium [Moles/Vol] 4.9 mmol/L [facility] Protein [Mass/Vol] 6.6 g/dL 6.3 - 8 g/dL [facility] Sodium [Moles/Vol] 138 mmol/L [facility] Urea nitrogen (BldV) [Mass/Vol] 12 mg/dL 8 - 23 mg/dL [facility] Lipid, Fastingon 06-15-2022 Cholesterol [Mass/Vol] 136 mg/dL 0 - 199 mg/dL [facility] Comment on above: ATP III Cholesterol classification is Desirable. Cholesterol in HDL [Mass/Vol] 30 mg/dL Low 40 - 59 mg/dL [facility] Comment on above: ATP III HDL Cholestr ol Classification is low. Expected Values: Males: >55 = No Risk 35-55 = Moderate Risk <35 = High Risk Females: >65 = No Risk 45-65 = Moderate Risk <45 = High Risk NCEP Guidelines: Third Report December 2000 >59 = negative risk factor for CHD <40 = major risk factor for CHD Cholesterol in LDL [Mass/Vol] 86 mg/dL 0 - 129 mg/dL [facility] Comment on above: ATP III LDL Classifi cation is Optimal. Triglyceride, Fasting 98 mg/dL 0 - 150 mg/dL [facility] Comment on above: ATP III Triglyceride s Classification is Normal. No Panel Informationon 06-15 Interpretation and review of laboratory results Abnormal [facility] CBCon 04-02-2022 Hematocrit (Bld) [Volume fraction] 45.9 % 42 - 52 % [facility] Hemoglobin (Bld) [Mass/Vol] 15.0 g/dL 14 - 18 g/dL [facility] Interpretation and review of laboratory results Abnormal [facility] MCH (RBC) [Entitic mass] 31.5 pg High 27 - 31.3 pg [facility] MCHC (RBC) [Mass/Vol] 32.8 % Low 33 - 37 % [facility] MCV (RBC) [Entitic vol] 96.0 fL 80 - 100 fL [facility] Platelet distribution width (Bld) [Ratio] 15.1 % High 11.5 - 14.5 % [facility] Platelets (Bld) [#/Vol] 207 10*3/uL 130 - 400 K/uL [facility] RBC (Bld[facility] [#/Vol] 4.78 10*6/uL [facility] WBC (Bld) [#/Vol] 7.0 10*3/uL 4.8 - 10.8 K/uL [facility] [employer] XR CHEST (2 VW)on 04-02-2022 NO ACUTE CARDIOPULMO NARY DISEASE. [facility] Described EXAMINATIO N: XR CHEST (2 VW) CLINICAL HISTORY: SHORTNESS OF BREATH COMPARISONS: CT CHEST, JUNE 24, 2021. FINDINGS: Osseous structures are intact. Cardiopericardial silhouette is normal. Pulmonary vasculature is normal. Lungs are clear. [facility] Signer, MD Darci - 04/02/2022 Described EXAMINATION: XR CHEST (2 VW) CLINICAL HISTORY: SHORTNESS OF BREATH COMPARISONS: CT CHEST, JUNE 24, 2021. FINDINGS: Osseous structures are intact. Cardiopericardial silhouette is normal. Pulmonary vasculature is normal. Lungs are clear. IMPRESSION: NO ACUTE CARDIOPULMONARY DISEASE. [facility] Work Phone: Radiology Study observation (narrative) [facility] [employer] Phone: XR CHEST (2 VW)Ordered By: Binh Rosales on 04-02-2022 [facility] [employer] Work Phone: TSH with ReflexOrdered By: Liseth Rey on 07-03-2021 TSH Qn 1.18 m[IU]/L [employer] Phone: [employer] Phone: CBCOrdered By: Jarad Rey on 06-12-2021 Hematocrit (Bld) [Volume fraction] 45.9 % 42.0 - 52.0 % [facility] Phone: Hemoglobin.gastroint estinal spec 1 Ql (Stl) 15.5 g/dL 14.0 - 18.0 g/dL [employer] Phone: Interpretation and review of laboratory results Abnormal [employer] Phone: MCH (RBC) [Entitic mass] 31.7 pg High 27.0 - 31.3 pg [employer] Phone: MCHC (RBC) [Mass/Vol] 33.7 % 33.0 - 37.0 % [employer] Phone: MCV (RBC) [Entitic vol] 94.1 fL 80.0 - 100.0 fL [employer] Phone: Platelet distribution width (Bld) [Ratio] 14.6 % High 11.5 - 14.5 % [employer] Phone: Platelets (Bld) [#/Vol] 239 10*3/uL 130 - 400 K/uL [employer] Phone: RBC (Bld) [#/Vol] 4.87 10*6/uL [employer] Phone: WBC (Bld) [#/Vol] 6.9 10*3/uL 4.8 - 10.8 K/uL [employer] Phone: [employer] Phone: Comprehensive Metabolic Pane l, FastingOrdered By: Jarad Rey on 06-12-2021 Albumin [Mass/Vol] 4.1 g/dL 3.5 - 4.6 g/dL [employer] Phone: ALP (Bld) [Catalytic activity/Vol] 120 U/L High 35 - 104 U/L [employer] Phone: ALT [Catalytic activity/Vol] 13 U/L 0 - 41 U/L [employer] Phone: Anion gap [Moles/Vol] 9 mmol/L [employer] Phone: AST [Catalytic activity/Vol] 19 U/L 0 - 40 U/L [employer] Phone: Bilirubin [Mass/Vol] 0.6 mg/dL 0.2 - 0 .7 mg/dL [employer] Phone: Calcium [Mass/Vol] 9.3 mg/dL 8.5 - 9.9 mg/dL [employer] Phone: Chloride [Moles/Vol] 105 mmol/L [employer] Phone: CO2 [Moles/Vol] 24 mmol/L [employer] Phone: Creatinine [Mass/Vol] 0.98 mg/dL 0.70 - 1.20 mg/dL [employer] Phone: Free PSA/Total PSA [Mass fraction] 6.4 g/dL 6.3 - 8.0 g/dL [employer] Phone: GFR >60.0 >60 [employer] Phone: Comment on above: >60 mL/min/1.73m2 EG FR, calc. for ages 18 and older using the MDRD formula (not corrected for weight), is valid for stable renal function. GFR Non- >60.0 >60 [employer] Phone: Comment on above: >60 mL/min/1.73m2 EG FR, calc. for ages 18 and older using the MDRD formula (not corrected for weight), is valid for stable renal function. Globulin (S) [Mass/Vol] 2.3 g/dL 2.3 - 3.5 g/dL [employer] Phone: Glucose [Mass/Vol] 103 mg/dL High 70 - 99 mg/dL [employer] Phone: Potassium [Moles/Vol] 4.7 mmol/L [employer] Phone: Sodium [Moles/Vol] 138 mmol/L [employer] Phone: Urea nitrogen (BldV) [Mass/Vol] 16 mg/dL 8 - 23 mg/dL [employer] Phone: Lipid, FastingOrdered By: Wilmer Rey on 06-12-2021 Cholesterol [Mass/Vol] 127 mg/dL 0 - 199 mg/dL [employer] Phone: Comment on above: ATP III Cholesterol classification is Desirable. Cholesterol in HDL [Mass/Vol] 28 mg/dL Low 40 - 59 mg/dL [employer] Phone: Comment on above: ATP III HDL Cholestr ol Classification is low. Expected Values: Males: >55 = No Risk 35-55 = Moderate Risk <35 = High Risk Females: >65 = No Risk 45-65 = Moderate Risk <45 = High Risk NCEP Guidelines: Third Report December 2000 >59 = negative risk factor for CHD <40 = major risk factor for CHD Cholesterol in LDL [Mass/Vol] 83 mg/dL 0 - 129 mg/dL [employer] Phone: Comment on above: ATP III LDL Classifi cation is Optimal. Triglyceride, Fasting 78 mg/dL 0 - 150 mg/dL [employer] Phone: Comment on above: ATP III Triglyceride s Classification is Normal. No Panel InformationOrdered By: Jarad Rey on 06-12-2021 Interpretation and review of laboratory results Abnormal [employer] Phone: [employer] Phone: PSA ScreeningOrdered By: Ollie Rey on 06-12-2021 [employer] Phone: ECHO Complete 2D W Doppler W ColorOrdered By: Justin Espinoza on 02-27-2021 Transthoracic Echocardiography Report (TTE) Demographics Patient Name JULISSA WYATT Gender Male LINDSAY Patient Number [id number] Race Ethnicity Visit Number [id number] Room Number Corporate ID Date of Study 02/27/2021 Referring Physician Alexis Núñez MD Number Date of 1955 Web Operations Specialist Rojas Mancini [facility] Age 65 year(s) Interpreting [facility] Physician Cardiology Alexis Núñez MD Procedure Type of Study TTE procedure:ECHO COMPLETE 2D W/DOP W/COLOR. Procedure Date Date: 02/27/2021 Start: 08:56 AM Study Location: Echo Lab Technical Quality: Adequate visualization Indications:Dyspnea. Patient Status: Routine Height: 69 inches Weight: 235 pounds BSA: 2.21 m^2 BMI: 34.7 kg/m^2 BP: 145/82 mmHg Conclusions Summary Normal mitral valve structure and function. Mild MR Normal left ventricle structure and function. Left ventricular ejection fraction is visually estimated at 50%. Normal diastolic filling pattern. Signature Findings Left Ventricle Normal left ventricle structure and function. Left ventricular ejection fraction is visually estimated at 50%. Normal diastolic filling pattern. Right Ventricle Normal right ventricle structure and function. Normal right ventricle systolic pressure. Left Atrium Normal left atrium. Right Atrium Normal right atrium. Mitral Valve Normal mitral valve structure and function. Mild MR Tricuspid Valve Normal tricuspid valve structure and function. Mild TR RVSP 32 mmHg Aortic Valve Normal aortic valve structure and function. Pulmonic Valve The pulmonic valve was not well visualized . Pericardial Effusion No evidence of pericardial effusion. Pleural Effusion No evidence of pleural effusion. Aorta \ Miscellaneous The aorta is within normal limits. M-Mode Measurements (cm) LVIDd: 4.83 cm LVIDs: 3.7 cm IVSd: 1.41 cm IVSs: 1.42 cm LVPWd: 1.36 cm LVPWs: 1.26 cm Rt. Vent. Dimension: 3.41 cm AO Root Dimension: 2.54 cm ACS: 2.05 cm LA: 4.25 cm LVOT: 1.82 cm Doppler Measurements: AV Velocity:0.02 m/s MV Peak E-Wave: 1.04 m/s AV Peak Gradient: 9.64 mmHg MV Peak A-Wave: 0.7 m/s AV Mean Gradient: 4.86 mmHg AV Area (Continuity):1.52 cm^2 TR Velocity:2.73 m/s Estimated RAP:3 mmHg TR Gradient:29.91 mmHg RVSP:32.91 mmHg Valves Mitral Valve Peak E-Wave: 1.04 m/s Peak A-Wave: 0.7 m/s E/A Ratio: 1.48 Peak Gradient: 4.29 mmHg Deceleration Time: 210 msec Tissue Doppler E' Septal Velocity: 0.11 m/s E' Lateral Velocity: 0.12 m/s Aortic Valve Peak Velocity: 1.55 m/s Mean Velocity: 1.03 m/s Peak Gradient: 9.64 mmHg Mean Gradient: 4.86 mmHg Area (continuity): 1.52 cm^2 AV VTI: 38.37 cm Cusp Separation: 2.05 cm Tricuspid Valve Estimated RVSP: 32.91 mmHg Estimated RAP: 3 mmHg TR Velocity: 2.73 m/s TR Gradient: 29.91 mmHg Pulmonic Valve Peak Velocity: 1.29 m/s Peak Gradient: 6.63 mmHg Estimated PASP: 32.91 mmHg LVOT Peak Velocity: 0.9 m/s Mean Velocity: 0.65 m/s Peak Gradient: 2.93 mmHg Mean Gradient: 1.83 mmHg LVOT Diameter: 1.82 cm LVOT VTI: 22.36 cm Structures Left Atrium LA Dimension: 4.25 cm LA Area: 23.21 cm^2 LA/Aorta: 1.67 LA Volume/Index: 76.11 ml /34 m^2 Left Ventricle Diastolic Dimension: 4.83 cm Systolic Dimension: 3.7 cm Septum Diastolic: 1.41 cm Septum Systolic: 1.42 cm PW Diastolic: 1.36 cm PW Systolic: 1.26 cm FS: 23.4 % LV EDV/LV EDV Index: 108.88 ml/49 m^2 LV ESV/LV ESV Index: 58.21 ml/26 m^2 EF Calculated: 46.5 % LV Length: 7.94 cm LVOT Diameter: 1.82 cm Right Atrium RA Systolic Pressure: 3 mmHg Right Ventricle Diastolic Dimension: 3.41 cm RV Systolic Press (more content not included)... [employer] Work Phone: Anselmo, [place] Incoming Cardiovascular Results From [facility] - 02/27/2021 11:35 AM EDT Transthoracic Echocardiography Report (TTE) Demographics Patient Name JULISSA WYATT Gender Male LINDSAY Patient Number [id number] Race Ethnicity Visit Number [id number] Room Number Corporate ID Date of Study 02/27/2021 Referring Physician Alexis Núñez MD Number Date of 1955 Web Operations Specialist Rojas Mancini [facility] Age 65 year(s) Interpreting [facility] Physician Cardiology Alexis Nñúez MD Procedure Type of Study TTE procedure:ECHO COMPLETE 2D W/DOP W/COLOR. Procedure Date Date: 02/27/2021 Start: 08:56 AM Study Location: Echo Lab Technical Quality: Adequate visualization Indications:Dyspnea. Patient Status: Routine Height: 69 inches Weight: 235 pounds BSA: 2.21 m^2 BMI: 34.7 kg/m^2 BP: 145/82 mmHg Conclusions Summary Normal mitral valve structure and function. Mild MR Normal left ventricle structure and function. Left ventricular ejection fraction is visually estimated at 50%. Normal diastolic filling pattern. Signature Findings Left Ventricle Normal left ventricle structure and function. Left ventricular ejection fraction is visually estimated at 50%. Normal diastolic filling pattern. Right Ventricle Normal right ventricle structure and function. Normal right ventricle systolic pressure. Left Atrium Normal left atrium. Right Atrium Normal right atrium. Mitral Valve Normal mitral valve structure and function. Mild MR Tricuspid Valve Normal tricuspid valve structure and function. Mild TR RVSP 32 mmHg Aortic Valve Normal aortic valve structure and function. Pulmonic Valve The pulmonic valve was not well visualized . Pericardial Effusion No evidence of pericardial effusion. Pleural Effusion No evidence of pleural effusion. Aorta \ Miscellaneous The aorta is within normal limits. M-Mode Measurements (cm) LVIDd: 4.83 cm LVIDs: 3.7 cm IVSd: 1.41 cm IVSs: 1.42 cm LVPWd: 1.36 cm LVPWs: 1.26 cm Rt. Vent. Dimension: 3.41 cm AO Root Dimension: 2.54 cm ACS: 2.05 cm LA: 4.25 cm LVOT: 1.82 cm Doppler Measurements: AV Velocity:0.02 m/s MV Peak E-Wave: 1.04 m/s AV Peak Gradient: 9.64 mmHg MV Peak A-Wave: 0.7 m/s AV Mean Gradient: 4.86 mmHg AV Area (Continuity):1.52 cm^2 TR Velocity:2.73 m/s Estimated RAP:3 mmHg TR Gradient:29.91 mmHg RVSP:32.91 mmHg Valves Mitral Valve Peak E-Wave: 1.04 m/s Peak A-Wave: 0.7 m/s E/A Ratio: 1.48 Peak Gradient: 4.29 mmHg Deceleration Time: 210 msec Tissue Doppler E' Septal Velocity: 0.11 m/s E' Lateral Velocity: 0.12 m/s Aortic Valve Peak Velocity: 1.55 m/s Mean Velocity: 1.03 m/s Peak Gradient: 9.64 mmHg Mean Gradient: 4.86 mmHg Area (continuity): 1.52 cm^2 AV VTI: 38.37 cm Cusp Separation: 2.05 cm Tricuspid Valve Estimated RVSP: 32.91 mmHg Estimated RAP: 3 mmHg TR Velocity: 2.73 m/s TR Gradient: 29.91 mmHg Pulmonic Valve Peak Velocity: 1.29 m/s Peak Gradient: 6.63 mmHg Estimated PASP: 32.91 mmHg LVOT Peak Velocity: 0.9 m/s Mean Velocity: 0.65 m/s Peak Gradient: 2.93 mmHg Mean Gradient: 1.83 mmHg LVOT Diameter: 1.82 cm LVOT VTI: 22.36 cm Structures Left Atrium LA Dimension: 4.25 cm LA Area: 23.21 cm^2 LA/Aorta: 1.67 LA Volume/Index: 76.11 ml /34 m^2 Left Ventricle Diastolic Dimension: 4.83 cm Systolic Dimension: 3.7 cm Septum Diastolic: 1.41 cm Septum Systolic: 1.42 cm PW Diastolic: 1.36 cm PW Systolic: 1.26 cm FS: 23.4 % LV EDV/LV EDV Index: 108.88 ml/49 m^2 LV ESV/LV ESV Index: 58.21 ml/26 m^2 EF Calculated: 46.5 % LV Length: 7.94 cm LVOT Diameter: 1.82 cm Right Atrium RA Systolic Pressure: 3 mmHg Right Ventricle Diastolic Dimension: 3.41 cm RV Systolic Pressure: 32.91 mmHg Aorta/ Miscellaneous Aorta Aortic Root: 2.54 cm LVOT Diameter: 1.82 cm [employer] Phone: [employer] Phone: NM MYOCARDIAL SPECT REST EXE RCISE OR RXOrdered By: Justin Espinoza on 02-27-2021 NORMAL MYOCARDIAL PE RFUSION IMAGING WITH NO EVIDENCE OF STRESS-INDUCED ISCHEMIA NOR PRIOR MYOCARDIAL INFARCTION. NORMAL LV EJECTION FRACTION. [employer] Phone: EXAMINATION: PHARMACOLOGICAL SPECT IMAGING CLINICAL HISTORY: SHORTNESS OF BREATH COMPARISONS: NONE AVAILABLE TECHNIQUE: 10.8 mCi mildly injected rest images obtained patient was then stressed according to standard left scan protocol. Additional 31.2 mCi Myoview injected and poststress images were obtained. FINDINGS: Underlying electrocardiogram a sinus rhythm heart rate is 58 bpm blood pressure 130/74. Patient remained in sinus rhythm throughout. No ischemic segment changes. No significant arrhythmias noted. Patient had no complaints of angina during the study. Tomographic images reveal transient ischemic dilatation score of 1.14. Left ventricular ejection fraction 60%. Perfusion scan demonstrates diaphragmatic attenuation otherwise normal tracer uptake throughout the left ventricle segments. [employer] Phone: Anselmo, Chpo Incoming R adiant Results From [facility] - 02/27/2021 6:45 PM EDT EXAMINATION: PHARMACOLOGICAL SPECT IMAGING CLINICAL HISTORY: SHORTNESS OF BREATH COMPARISONS: NONE AVAILABLE TECHNIQUE: 10.8 mCi mildly injected rest images obtained patient was then stressed according to standard left scan protocol. Additional 31.2 mCi Myoview injected and poststress images were obtained. FINDINGS: Underlying electrocardiogram a sinus rhythm heart rate is 58 bpm blood pressure 130/74. Patient remained in sinus rhythm throughout. No ischemic segment changes. No significant arrhythmias noted. Patient had no complaints of angina during the study. Tomographic images reveal transient ischemic dilatation score of 1.14. Left ventricular ejection fraction 60%. Perfusion scan demonstrates diaphragmatic attenuation otherwise normal tracer uptake throughout the left ventricle segments. IMPRESSION: NORMAL MYOCARDIAL PERFUSION IMAGING WITH NO EVIDENCE OF STRESS-INDUCED ISCHEMIA NOR PRIOR MYOCARDIAL INFARCTION. NORMAL LV EJECTION FRACTION. [facility] [employer] Work Phone: [facility] [employer] Work Phone: Comprehensive Metabolic Pane l, Fastingon 06-11-2020 Albumin [Mass/Vol] 4.2 g/dL 3.5 - 4.6 g/dL [place] ALP [Catalytic activity/Vol] 113 U/L High 35 - 104 U/L [place] ALT [Catalytic activity/Vol] 18 U/L 0 - 41 U/L [place] Anion gap [Moles/Vol] 8 mmol/L Low [place] AST [Catalytic activity/Vol] 32 U/L 0 - 40 U/L [place] Bilirubin Ql (U) 0.8 mg/dL High 0.2 - 0.7 mg/dL [place] Calcium [Mass/Vol] 8.9 mg/dL 8.5 - 9.9 mg/dL [place] Chloride [Moles/Vol] 104 mmol/L [place] CO2 [Moles/Vol] 27 mmol/L [place] Creatinine [Mass/Vol] 1.13 mg/dL 0.7 - 1.2 mg/dL [place] GFR >60.0 >60 [place] Comment on above: >60 mL/min/1.73m2 EG FR, calc. for ages 18 and older using the MDRD formula (not corrected for weight), is valid for stable renal function. GFR Non- >60.0 >60 [place] Comment on above: >60 mL/min/1.73m2 EG FR, calc. for ages 18 and older using the MDRD formula (not corrected for weight), is valid for stable renal function. Globulin (S) [Mass/Vol] 2.1 g/dL Low 2.3 - 3.5 g/dL [place] Glucose [Mass/Vol] 101 mg/dL High 70 - 99 mg/dL [place] Interpretation and review of laboratory results Abnormal [place] Potassium [Moles/Vol] 4.2 mmol/L [place] Protein [Mass/Vol] 6.3 g/dL 6.3 - 8 g/dL [place] Sodium [Moles/Vol] 139 mmol/L [place] Urea nitrogen [Mass/Vol] 18 mg/dL 8 - 23 mg/dL [place] Lipid, Fastingon 06-11-2020 Cholesterol [Mass/Vol] 137 mg/dL 0 - 199 mg/dL [place] Comment on above: ATP III Cholesterol classification is Desirable. Cholesterol in HDL [Mass/Vol] 34 mg/dL Low 40 - 59 mg/dL [place] Comment on above: ATP III HDL Cholestr ol Classification is low. Expected Values: Males: >55 = No Risk 35-55 = Moderate Risk <35 = High Risk Females: >65 = No Risk 45-65 = Moderate Risk <45 = High Risk NCEP Guidelines: Third Report December 2000 >59 = negative risk factor for CHD <40 = major risk factor for CHD Cholesterol in LDL [Mass/Vol] 87 mg/dL 0 - 129 mg/dL [place] Comment on above: ATP III LDL Classifi cation is Optimal. Interpretation and review of laboratory results Abnormal [place] Triglyceride, Fasting 79 mg/dL 0 - 150 mg/dL [place] Comment on above: ATP III Triglyceride s Classification is Normal. Comprehensive Metabolic Pane l, Fastingon 05-15-2019 Albumin [Mass/Vol] 4.1 g/dL 3.5 - 4.6 g/dL [place] ALP [Catalytic activity/Vol] 135 U/L High 35 - 104 U/L [place] ALT [Catalytic activity/Vol] 12 U/L 0 - 41 U/L [place] Anion gap [Moles/Vol] 9 mmol/L [place] AST [Catalytic activity/Vol] 25 U/L 0 - 40 U/L [place] Bilirubin Ql (U) 1.2 mg/dL High 0.2 - 0.7 mg/dL [place] Calcium [Mass/Vol] 8.9 mg/dL 8.5 - 9.9 mg/dL [place] Chloride [Moles/Vol] 106 mmol/L [place] CO2 [Moles/Vol] 25 mmol/L [place] Creatinine [Mass/Vol] 0.97 mg/dL 0.7 - 1.2 mg/dL [place] GFR >60.0 >60 [place] Comment on above: >60 mL/min/1.73m2 EG FR, calc. for ages 18 and older using the MDRD formula (not corrected for weight), is valid for stable renal function. GFR Non- >60.0 >60 [place] Comment on above: >60 mL/min/1.73m2 EG FR, calc. for ages 18 and older using the MDRD formula (not corrected for weight), is valid for stable renal function. Globulin (S) [Mass/Vol] 2.6 g/dL 2.3 - 3.5 g/dL [place] Glucose [Mass/Vol] 95 mg/dL 70 - 99 mg/dL [place] Potassium [Moles/Vol] 4.1 mmol/L [place] Protein [Mass/Vol] 6.7 g/dL 6.3 - 8 g/dL [place] Sodium [Moles/Vol] 140 mmol/L [place] Urea nitrogen [Mass/Vol] 15 mg/dL 8 - 23 mg/dL [place] Lipid, Fastingon 05-15-2019 Cholesterol [Mass/Vol] 107 mg/dL 0 - 199 mg/dL [place] Comment on above: ATP III Cholesterol classification is Desirable. Cholesterol in HDL [Mass/Vol] 29 mg/dL Low 40 - 59 mg/dL [place] Comment on above: ATP III HDL Cholestr ol Classification is low. Expected Values: Males: >55 = No Risk 35-55 = Moderate Risk <35 = High Risk Females: >65 = No Risk 45-65 = Moderate Risk <45 = High Risk NCEP Guidelines: Third Report December 2000 >59 = negative risk factor for CHD <40 = major risk factor for CHD Cholesterol in LDL [Mass/Vol] 64 mg/dL 0 - 129 mg/dL [place] Comment on above: ATP III LDL Classifi cation is Optimal. Triglyceride, Fasting 72 mg/dL 0 - 150 mg/dL [place] Comment on above: ATP III Triglyceride s Classification is Normal. Otheron 05-15-2019 Interpretation and review of laboratory results Abnormal [place] Follow Up (Plastic Surgery)o n 06-01-2018 Follow Up (Plastic Surgery) *Chief ComplaintChief Complaint Free Text Note Form: Follow up, left leg basal cell cancer. The patient complains of pain. History of Present IllnessHPI: The area is healing well *Active Problems 1. Skin cancer, basal cell (173.91) (C44.91) *Allergies 1. No Known Allergies *Current Meds 1. No Reported Medications Recorded Physical ExamFree Text PE_UH: Leg wound is improving *Diagnoses/Problems 1. Skin cancer, basal cell (173.91) (C44.91) *Patient Discussion/SummaryPatient Discussion Summary Free Text Note Form: Patient to come back in 2 weeks. Signatures Electronically signed by : Esa Castañeda MD; Jun 01 2018 5:13PM EST (Author) Normal [facility] Follow Up (Plastic Surgery)o n 05-18-2018 Follow Up (Plastic Surgery) *Chief ComplaintChief Complaint Free Text Note Form: The patient is here for a follow up from the removal of a basal cell cancer from the left leg on 05/04/18. History of Present IllnessHPI: The leg area is healing wellDonor site no problems Review of SystemsFree Text ROS_UH: Patient states that there are no other concerns at this time besides the chief complaint. *Active Problems 1. Skin cancer, basal cell (173.91) (C44.91) *Allergies 1. No Known Allergies *Current Meds 1. No Reported Medications Recorded Physical ExamFree Text PE_: Graft take is satisfactorySteri-Strips were undisturbed *Diagnoses/Problems 1. Skin cancer, basal cell (173.91) (C44.91) *Patient Discussion/SummaryPatient Discussion Summary Free Text Note Form: Patient was advised to keep the areas attended toPatient to come back and couple weeks. Signatures Electronically signed by : Esa Castañeda MD; May 18 2018 4:39PM EST (Author) Normal [facility] PATHOLOGY SPECIMENon 018 PATHOLOGY SPEC Normal [facility] Comment on above: Order Comment: Comme nt: LEFT LEG BASAL CELL CARCINOMA Result Comment: Note : Specimens received on or after April:* Reports will be faxed to all physician's office.If you are a physician or have access to [facility]:* Pathology and Cytology reports are located in [facility] in the folder labeled Medical Record Forms.* Reports are also in the Physician Portal.* For assistance locating reports call: (LAB) [phone] Performed By: #### L PATH ####[place] [id number] [address] [id number] Follow Up (Plastic Surgery)o n 05-11-2018 Follow Up (Plastic Surgery) *Chief ComplaintChief Complaint Free Text Note Form: The patient is here for a follow up from the removal of a basal cell cancer and repair with a skin graft from the abdomen on 05/04/18. History of Present IllnessHPI: Patient is now complaintsPatient states that abdominal area is healing wellIt is no complaints with regard to the leg Review of SystemsFree Text ROS_UH: Patient states that there are no other concerns at this time besides the chief complaint. *Active Problems 1. Skin cancer, basal cell (173.91) (C44.91) *Allergies 1. No Known Allergies *Current Meds 1. No Reported Medications Recorded Physical ExamFree Text PE_UH: Left leg is healing wellStent dressing and sutures were removedDonor site sutures were removed and the area is healing well as well *Diagnoses/Problems 1. Skin cancer, basal cell (173.91) (C44.91) *Patient Discussion/SummaryPatient Discussion Summary Free Text Note Form: No problemsSteri-Strips were applied over the graftAsian to come back in 1 week. 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 The area was marked in the holding room witha 2-3 mm margin. Then, the patient was taken to the operating room, placed insupine position on the table. The area was prepped and draped in usualmanner. The areas were infiltrated with 1% xylocaine buffered with sodiumbicarb and then 0.25% Marcaine with epinephrine. After satisfactory localanesthesia, the tumor was excised with 2-3 mm margin including thesubcutaneous tissue. Hemostasis was secured. The specimen removed wasapproximately 2.5 cm x 2 cm with a defect involving skin and subcutaneoustissue exposing the periosteum and then the tumor was marked with sutures fororientation.A full-thickness graft ellipse was marked. The area was infiltrated with 1%xylocaine buffered with sodium bicarb and then 0.25% Marcaine withepinephrine. Hemostasis was secured by cauterization of the bleeding points.Skin edges were elevated and repaired with 3-0 Vicryl sutures. Dog ears wereexcised. Skin edges were further approximated with 4-0 nylon sutures.The graft was de-fatted, sutured onto the defect with several interrupted 4-0silk sutures. Stent dressing was applied using Xeroform gauze and dry gauzeand Kerlix was applied. No complications encountered during the procedure.Jake bandage was further applied and then instructions were given to keep theleg elevated as much as possible. Office visit in 1 week. No complications [facility] RAMON [id number] [address] [place] [id number]: Esa Castañeda MDOPERATIVE REPORTencountered during the procedure. Esa CASTAÑEDA M.D./[facility] HospitalColin/[id number]: 05/11/2018 15:12:35 E/S:Electronicall y Signed __[facility] [id number] [address] [place] [id number]: Esa Castañeda MDOPERATIVE REPORT Normal [facility] Surgical Pathology Depar tmenton 05-04-2018 [facility] Surgical Pathology Department Name RAMON COSTA Pathologist: BELKIS COFFMAN, MDDate of Procedure: 05/04/2018Date Received: 05/04/2018Date Reported 05/13/2018Submitting Physician: ESA CASTAÑEDA MDLocation: [facility] Other External # [id number] FINAL DIAGNOSISA. LEFT LEG, BASAL CELL CARCINOMA, EXCISION:-- BASAL CELL CARCINOMA, SUPERFICIAL GROWTH PATTERN AND SCAR, INKED MARGINSFREE IN PLANES OF SECTIONS EXAMINED.Band Saw Filer: Tono Mars MD. The gross and/or microscopic findings were reviewed in conjunction withpathology resident, Valerie Doherty M.D. Electronically Signed Out By BELKIS COFFMAN MD/Sacha the signature on this report, the individual or group listed as making theFinal Interpretation/Diagnosis certifies that they have reviewed this case. Microscopic Description:A. Microscopic analysis shows multifocal buds and irregular proliferations ofbland basaloid keratinocytes with palisaded arrangement of peripheral nucleiarising from epidermis. Mucinous stroma separates the carcinoma buds fromdermis. Skip areas are present, where normal epidermis separates focal areasof carcinoma. An area with horizontally oriented collagen and verticallyoriented vessels is present.Clinical History:Basal cell carcinoma left leg, one stitch superior, two stitches medialSpecimens Submitted As:A: LEFT LEG BASAL CELL CARCINOMA Other Case Numbers [id number] Description:Received in formalin, labeled with the patient's name and hospital number and1, left leg, is an oriented elliptical segment of skin with subcutaneoustissue measuring 2.1 x 1.7 x 0.4 cm. A single stitch is present and isdesignated as superior tip. A double stitch is present and is designated asmedial margin and is inked blue. The lateral margin is inked yellow. The deepmargin is inked black. On the skin surface is an ill-defined, palmer-johnson,slightly elevated area measuring 0.9 x 0.8 cm which extends within 0.3 cm tothe superior tip, and lateral margin. The specimen is sectioned and entirelysubmitted in 4 cassettes.DJOSummary of Cassettes:Specimen Label SiteA 1 superior tip 2 superior body of ellipse 3 inferior body of ellipse 4 inferior tipd05/05/2018 Normal [facility] Comment on above: Performed By: #### U [facility] ####[facility] Surgical Pathology [id number] [facility] [address] Office Visiton 04-15-2018 Office Visit Chief ComplaintThe p mickie is here for a basal cell cancer on the left lower leg. The patient was referred by Dr. Roseline Jimenez. History of Present IllnessPatient has a biopsy-proven basal cell cancer left leg Physical ExamHas growth of 1 cm x 2 cm involving the skin and the anterior aspect of the left leg Diagnoses/Problems Skin cancer, basal cell (173.91) (C44.91) Patient Discussion/SummaryThe plan is to excise the growth and repair of the resulting wound with full-thickness skin graft. He would be a poor candidate for flap reconstruction because of the location of the growth. Signatures Electronically signed by : Esa Castañeda MD; Apr 15 2018 5:29PM EST (Author) Normal [employer] [address] [address]DPYNMFS AND PHYSICAL EXAMINATIONPatient Name:RAMON COSTAParkview [facility] Hospitalkolby Record Number: [id number] Physician: Quirino Sheehan M.D. Date: 04/26/2018Discharge Date:CHIEF COMPLAINT:Basal cell cancer, left anterior leg.HISTORY OF PRESENT ILLNESS:The patient is a 62-year-old white male, with biopsy-proven basal cell cancer ofleft anterior leg. The patient is now to undergo excision and frozen section.PAST MEDICAL HISTORY:Includes heart disease, skin cancer, sleep apnea, malignant melanoma of theskin.PAST SURGICAL HISTORY:Cardiac catheterization, renal lithotripsy, skin lesion excision.SOCIAL HISTORY:Denies smoking, denies alcohol use.MEDICATIONS:1. Allopurinol.2. Aspirin.3. Lipitor.4. Plavix.5. Niacin.6. Losartan.7. Nitroglycerin.8. Pantoprazole.9. Ropinirole.10. Vitamin B.11. Vitamin C.ALLERGIES:NONE.PHYSICAL EXAMINATION:VITAL SIGNS: Weight 231 pounds, height 5 feet 8 inches, blood pressure 130/82.Examination of head, eyes, ears, nose, and throat were normal limits.NECK: Supple.LUNGS: Clear to auscultation.HEART: Regular rate and rhythm.BREASTS: Nontender.EXTREMITIES: Full range of motion of the left anterior leg, has a1.3 x 0.8 cm open wound from the basal cell cancer biopsy site.NEUROLOGICAL: Grossly within normal limits.IMPRESSION:Basal cell cancer of left leg.PLAN:Excision and frozen section under MAC anesthesia.Quirino Sheehan M.D.INTERNAL JOB NUMBER: [id number]:Electronically signed by Quirino Sheehan MD on 01 Apr 2018 12:58:18 GMT Normal [facility] CBC With Differentialon 09-30 Basophils Auto #/vol (Bld) 0.04 10*3/uL Normal 0.01-0.09 [facility] Comment on above: Performed By: #### 2 [id number] ####[facility] Ofz[address] [place] [address] Basophils/100 WBC Auto (Bld) 0.6 % Normal 0.0-1.3 [facility] Comment on above: Performed By: #### 2 801544 ####[facility] Qut[address] [place] [address] Eosinophils Auto #/vol (Bld) 0.15 10*3/uL Normal 0.01-0.46 [facility] Comment on above: Performed By: #### 2 733889 ####[facility] Wrb[address] [place] [address] Eosinophils/100 WBC Auto (Bld) 2.4 % Normal 0.0-6.7 [facility] Comment on above: Performed By: #### 2 000557 ####[facility] Lat[address] [place] [address] Erythrocyte distribution width Auto Ratio (RBC) 13.3 % Normal 12.0-15.4 [facility] Comment on above: Performed By: #### 2 407481 ####[facility] Hwb[address] [place] [address] Hematocrit Auto Volume Fraction (Bld) 44.4 % Normal 38.4-54.9 [facility] Comment on above: Performed By: #### 2 239435 ####[facility] Lzc[address] [place] [address] Hemoglobin mass conc (Bld) 15.0 g/dL Normal 12.8-17.7 [facility] Comment on above: Performed By: #### 2 453309 ####[facility] Qtc[address] [place] [address] Imm Grans Absolute 0.02 10*3/uL Normal 0.00-0.21 [facility] Comment on above: Performed By: #### 2 338742 ####[facility] Cws[address] [place] [address] Immature granulocytes #/vol (Bld) 0.3 % Normal [facility] Comment on above: Performed By: #### 2 438100 ####[facility] Lkp[address] [place] [address] Lymphocytes Auto #/vol (Bld) 2.17 10*3/uL Normal 0.40-2.84 [facility] Comment on above: Performed By: #### 2 988068 ####[facility] Maw[address] [place] [address] Lymphocytes/100 WBC Auto (Bld) 34.5 % Normal 9.4-41.1 [facility] Comment on above: Performed By: #### 2 454435 ####[facility] Udk[address] [place] [address] MCH Auto Entitic mass (RBC) 31.6 pg Normal 27.5-32.9 [facility] Comment on above: Performed By: #### 2 593494 ####[facility] Smf[address] [place] [address] MCHC Auto mass conc (RBC) 33.8 g/dL Normal 30.5-35.4 [facility] Comment on above: Performed By: #### 2 994053 ####[facility] Pze[address] [place] [address] MCV Auto Entitic volume (RBC) 93.5 fL Normal 83.3-98.2 [facility] Comment on above: Performed By: #### 2 570298 ####[facility] Ejn[address] [place] [address] Monocytes Auto #/vol (Bld) 0.56 10*3/uL Normal 0.25-1.33 [facility] Comment on above: Performed By: #### 2 619004 ####[facility] Llf[address] [place] [address] Monocytes/100 WBC Auto (Bld) 8.9 % Normal 3.0-16.2 [facility] Comment on above: Performed By: #### 2 086941 ####[facility] Nyg[address] [place] [address] Neutrophils Absolute 3.35 10*3/uL Normal 2.22-7.53 [facility] Comment on above: Performed By: #### 2 406274 ####[facility] Zsc[address] [place] [address] Neutrophils/100 WBC Auto (Bld) 53.3 % Normal 46.2-79.1 [facility] Comment on above: Performed By: #### 2 718549 ####[facility] Tue[address] [place] [address] NRBC Absolute 0.00 10*3/uL Normal [facility] Comment on above: Performed By: #### 2 607250 ####[facility] Bat[address] [place] [address] NRBC Automated 0.0 /100{WBCs} Normal [facility] Comment on above: Performed By: #### 2 205433 ####[facility] [address] [place] [address] Platelet mean volume Auto Entitic volume (Bld) 8.5 fL Low 9.9-12.1 [facility] Comment on above: Performed By: #### 2 609282 ####[facility] Zcn[address] [place] [address] Platelets Auto #/vol (Bld) 180 10*3/uL Normal 155-404 [facility] Comment on above: Performed By: #### 2 486079 ####[facility] Ghh[address] [place] [address] RBC Auto #/vol (Bld) 4.75 10*6/uL Normal 4.08-6.37 [facility] Comment on above: Performed By: #### 2 065006 ####[facility] Ptu[address] [place] [address] RDW SD 45.9 fL Normal 39.3-48.6 [facility] Comment on above: Performed By: #### 2 981828 ####[facility] Kdo[address] [place] [address] WBC Auto #/vol (Bld) 6.3 10*3/uL Normal 4.2-11.0 [facility] Comment on above: Performed By: #### 2 452456 ####[facility] Rwi[address] [place] [address] Comprehensive Metabolic Pane otoniel 10-15-2017 Albumin mass conc 4.0 g/dL Normal 3.4-5.0 [facility] Comment on above: Performed By: #### 1 628878 ####[facility] Nid[address] [place] [address] Albumin/Globulin mass ratio 1.5 {ratio} Normal 0.9-2.4 [facility] Comment on above: Performed By: #### 1 517812 ####[facility] Klg[address] [place] [address] ALP enzyme act/vol 116 U/L Normal 45-117 [facility] Comment on above: Performed By: #### 1 910129 ####[facility] Lke[address] [place] [address] ALT enzyme act/vol 18 U/L Normal 10-52 [facility] Comment on above: Performed By: #### 1 507202 ####[facility] Mtq[address] [place] [address] Anion gap 3 molar conc 9 mmol/L Low 10-20 [facility] Comment on above: Performed By: #### 1 820415 ####[facility] Gmy[address] [place] [address] AST enzyme act/vol 13 U/L Normal 13-39 [facility] Comment on above: Performed By: #### 1 591558 ####[facility] Qgt[address] [place] [address] Bilirubin mass conc 0.8 mg/dL Normal 0.0-1.2 [facility] Comment on above: Performed By: #### 1 637916 ####[facility] Ygl[address] [place] [address] Calcium mass conc 9.1 mg/dL Normal 8.6-10.3 [facility] Comment on above: Performed By: #### 1 637854 ####[facility] Yrz[address] [place] [address] Chloride molar conc 108 mmol/L High 98-107 [facility] Comment on above: Performed By: #### 1 080400 ####[facility] Cqe[address] [place] [address] Creatinine mass conc 1.12 mg/dL Normal 0.50-1.30 [facility] Comment on above: Performed By: #### 1 037862 ####[facility] Vmx[address] [place] [address] GFR/1.73 sq M.predicted MDRD vol rate/area mL/min/{1.73_m2} Normal [facility] Comment on above: Result Comment: Inte rpretation for Chronic Kidney Disease:Stages 1&2 >60 Healthy or potential kidney damage.Mild decrease of GFR.Stage 3 30-59 Moderate decrease of GFR.Stage 4 15-29 Severe decrease of GFR.Stage 5 <15 Kidney failure or on dialysis. Performed By: #### 1 927158 ####[facility] Maq[address] [place] [address] Glucose mass conc 104 mg/dL High 70-100 [facility] Comment on above: Performed By: #### 1 219810 ####[facility] Rhx[address] [place] [place] [address] HCO3 molar conc (Bld) 28 mmol/L Normal 21-32 [facility] Comment on above: Performed By: #### 1 064532 ####[facility] I[address] [place] [address] Potassium molar conc 4.3 mmol/L Normal 3.5-5.1 [facility] Comment on above: Performed By: #### 1 049382 ####[facility] Cqr[address] [place] [place] [address] Protein mass conc 6.6 g/dL Normal 6.4-8.2 [facility] Comment on above: Performed By: #### 1 206349 ####[facility] [address] [place] [address] Sodium molar conc 141 mmol/L Normal 136-145 [facility] Comment on above: Performed By: #### 1 407877 ####[facility] [address] [place] [address] Urea nitrogen mass conc 12 mg/dL Normal 6-23 [facility] Comment on above: Performed By: #### 1 636184 ####[facility] [address] [place] [address] Urea nitrogen/Creatinine mass ratio 11 mg/mg Normal 5-25 [facility] Comment on above: Performed By: #### 1 989679 ####[facility] [address] [facility] [place] [address] Lipid Panelon 10-15-2017 Cholesterol in HDL mass conc 40 mg/dL Normal [facility] Comment on above: Result Comment: Norm al Mod Risk High Risk5-9 >48 42-48 <4210- 14 >45 40-45 <4015-19 >38 34-38 <34Adult >39 Performed By: #### 1 412766 ####[facility] [address] [place] [address] Cholesterol in LDL mass conc 74 mg/dL Normal <130 [facility] Comment on above: Performed By: #### 1 159853 ####[facility] [address] [place] [address] Cholesterol in VLDL mass conc 16 mg/dL Normal <30 [facility] Comment on above: Performed By: #### 1 729726 ####[facility] [address] [place] [address] Cholesterol mass conc 130 mg/dL Normal <200 [facility] Comment on above: Performed By: #### 1 270008 ####[facility] [address] [place] [address] Cholesterol.total/Ch olesterol in HDL mass ratio 3.2 {ratio} Normal [facility] Comment on above: Performed By: #### 1 062492 ####[facility] M[address] [place] [address] Triglyceride mass conc 81 mg/dL Normal <150 [facility] Comment on above: Result Comment: 150- 199 Borderline [id number] High>500 Very High Performed By: #### 1 837377 ####[address] [address] Prostate Specific Antigen, T otalon 10-15-2017 Protein mass conc 1.2 ng/mL Normal 0.0-4.0 [facility] Comment on above: Result Comment: 5-Al pha Reductase Inhibitors (e.g. Proscar,Finasteride, Avodart, Dutasteride and Lianne)may falsely decrease serum total PSA by 50%.To achieve the corrected value, the reportedPSA should be multiplied X 2. Performed By: #### 1 432392 ####[facility] [address] [place] [address] TSHon 10-15-2017 Thyrotropin Qn 0.54 mU/L Normal 0.44-3.98 [facility] Comment on above: Performed By: #### 1 017303 ####[address] [address] XR Abdomen 1 Viewon 10-06-19 18 XR Abdomen 1 View Exam Date/Time: 018 14:39 ESTReason for Exam:Kidney stoneReportXR ABDOMEN 1 VIEWCLINICAL STATEMENT: Followup surgery and right-sided stones.COMPARISON: [facility] September 10, 2017.TECHNIQUE: AP supine views of the abdomen and pelvis.FINDINGS: The right ureteral stent is in stable position. Previous study showed2 calcifications overlying the proximal aspect of the right ureteral stent atthe level of the L4 vertebra. On the current study, there is only a faint 3 mmcalcification at the level of the inferior endplate L4 at the level of the midright ureter. Otherwise, no calcifications are seen along the right ureteralstent. There is a similar 4 mm calcification overlying the midpole of the rightrenal shadow; an additional suspected faint 3 mm lower pole right renalcalcification. The left renal shadow shows a similar 3 mm stone in the lowerpole. The bowel gas pattern is nonobstructive.IMPRESSION:1 . On the current study, there is suggestion of a single 3 mm mid rightureteral stone.2. Small bilateral renal stones are redemonstrated.3. Right ureteral stent in stable position. FINAL REPORT Dictated: 10/06/2017 2:56 pm Rubin Hampton DO (Electronic Signature): 10/06/2017 2:56 pmSigned by: Ramon Hampton DO Technologist: TEX [facility] XR Abdomen 1 Viewon 09-10-19 18 XR Abdomen 1 View Exam Date/Time:2017 09:42 ESTReason for Exam:RIGHT FLANK PAIN RIGHT URETERAL STONEReportXR Abdomen 1 ViewCLINICAL STATEMENT: Followup renal stones. Right flank pain and right ureteralstone.COMPARISON: August 19, 2017.TECHNIQUE: AP supine views of the abdomen and pelvis.FINDINGS: There has been interval placement of a right ureteral stent. Thereare 2 adjacent calcifications at the level of the L4 transverse processoverlying the proximal portion of the stent measuring about 7 mm and 6 mm.There is a 4 x 2 mm stone in the right kidney and a 3 mm stone in the lowerpole of the left kidney. Bowel gas pattern is nonobstructive. Ureteral stent isin expected position.IMPRESSION:1. Placement of a right ureteral stent. There are 2 subjacent stones in theproximal right ureter measuring 7 mm and 6 mm.2. Bilateral small renal stones. FINAL REPORT Dictated: 09/10/2017 12:33 pm Rubin Hampton DO (Electronic Signature): 09/10/2017 12:33 pmSigned by: Ramon Hampton DO Technologist: TEX [facility] Calculus Analysison 09-02-19 18 Ammonium Acid Urate Not Performed Normal [facility] Comment on above: Performed By: #### 2 211008 ####HEATHER [address]WxlXbrr[address] [place] [address] Body weight Measured 176.0 mg Normal [facility] Comment on above: Performed By: #### 2 616177 ####HEATHER [address]Mdsu[address]90 [place] [address] [place] Hydrogen Phos Not Performed [facility] Comment on above: Performed By: #### 2 266527 ####HEATHER [address]iGelb[address] [place] [address] CA Oxalate, Dihydrate Not Performed [facility] Comment on above: Performed By: #### 2 361611 ####HEATHERHarmony RogersOwnXrfp5561 [place] [address] [place] Oxalate, Monohydr 95 % [facility] Comment on above: Performed By: #### 2 890139 ####HEATHER [address]ulf[address] [place] [address] Calcium Bilirubinate Not Performed [facility] Comment on above: Performed By: #### 2 469255 ####HEATHERHarmony RogersAxiSmgh8047 [place] [address] Calcium Carbonate Not Performed [facility] Comment on above: Performed By: #### 2 262285 ####HEATHERHarmony RogersKzfHjvo9601 [place] [address] Calcium Phos 05 % [facility] Comment on above: Performed By: #### 2 828282 ####HEATHERHarmony RogersStkCxec1734 [place] [address] Cellular Material Not Performed [facility] Comment on above: Performed By: #### 2 736492 ####HEATHERHarmony RogersLelBnvw3799 [place] [address] Cholesterol mass conc Not Performed [facility] Comment on above: Performed By: #### 2 117255 ####HEATHERHarmony RogersPneXicc[address] [place] [id number] Color Nom (U) Brown [facility] Comment on above: Performed By: #### 2 477286 ####HEATHER T[address]Amyj[address] [place] [address] Comment 1 Not Performed [facility] Comment on above: Performed By: #### 2 834790 ####HEATHER [address]Zsjc[address] [place] [address] Comment 2 Note: [facility] Comment on above: Result Comment: Plea se do not submit specimens on Q-Tips, in tape, onfilters, or in liquids such as blood, urine or formalin.This may cause unnecessary biohazards, erroneous resultsand/or delay in the processing of the specimen. Performed By: #### 2 985281 ####HEATHER RogersThkApmd7193 [place] [address] Comment 3 Comment [facility] Comment on above: Result Comment: Phys marielaan questions regarding Calculi Analysis contactBoston Nursery for Blind Babies at: [phone]. Performed By: #### 2 878389 ####HEATHER IkmYjcs[address]386 [place] [address] Composition Comment [facility] Comment on above: Result Comment: Perc entage (Represents the % composition) Performed By: #### 2 927313 ####HEATHER RmgCltq3640 [place] [address] Cystine Not Performed [facility] Comment on above: Performed By: #### 2 544285 ####HEATHER PimYrqk1109 [place] [address] Disclaimer: Comment [facility] Comment on above: Result Comment: This test was developed and its performance characteristicsdetermined by [facility]. It has not been cleared orapproved by the Food and Drug Administration.Performed At: [address] [id number] Ruth MD Ph:[phone] Performed By: #### 2 644276 ####HEATHER [address]Gszx[address] [place] [address] Dried Blood Not Performed [facility] Comment on above: Performed By: #### 2 425879 ####HEATHER LycIhtv[address]197 [place] [address] [place] Phos Not Performed [facility] Comment on above: Performed By: #### 2 [id number] ####HEATHER BqvMwxe4840 [place] [address] Newberyite Not Performed [facility] Comment on above: Performed By: #### 2 920458 ####HEATHER CepBael1544 [place] [address] Nidus No Nidus visualized [facility] Comment on above: Performed By: #### 2 [id number] ####HEATHER RogersAduIsxj2438 [place] [address] Note: Comment [facility] Comment on above: Result Comment: Calc jose rafael report without photograph will follow via computer,mail, or die trimmer delivery. Performed By: #### 2 [id number] ####HEATHER RogersHesAzqa0028 [place] [address] Shell Not Performed [facility] Comment on above: Performed By: #### 2 169982 ####HEATHER RogersQppZtta0384 [place] [address] Size Comment [facility] Comment on above: Result Comment: Spec imen received as fragments. Performed By: #### 2 343729 ####HEATHER RogersIobJvbe4820 [place] [address] Sodium molar conc Not Performed [facility] Comment on above: Performed By: #### 2 325988 ####HEATHER RogersEocZweq9918 [place] [address] Surface Crystals Not Performed [facility] Comment on above: Performed By: #### 2 221757 ####HEATHER RogersDkgYstq8515 [place] [address] Triamterene Not Performed [facility] Comment on above: Performed By: #### 2 005090 ####HEATHER RogersZljRgbm1559 [place] [address] Uric Acid Dihydrate Not Performed [facility] Comment on above: Performed By: #### 2 495872 ####HEATHER RogersIlvTzgd2863 [place] [address] Uric Acid. Not Performed [facility] Comment on above: Performed By: #### 2 307212 ####HEATHER RogersJvpLnlv1330 [place] [id number] XR Abdomen APon 08-19-2017 INR Coag RelTime (Bld) Exam Date/Time:08/19/2017 15:09 ESTReason for Exam:flank painReportAbdomenHISTORY: Renal stone.FINDINGS:The right ureteric stent present on 08/11/2017 has been removed. A calculus isseen, in the line of the right ureter, at the level of the L5 transverseprocess, which measures 8 mm in size. This was present in the lower pole of thekidney on the previous examination.In the midportion of the right kidney there is a 2 mm calculus present.]A 2 mm calculus is seen in the lower pole of the left kidney also.IMPRESSION:Calculus right mid ureter at the L5 transverse process level.Nonobstructive 2 mm calculi in both kidneys. FINAL REPORT Dictated: 08/19/2017 5:15 pm Sundar Jacobsen MD KSigned (Electronic Signature): 08/19/2017 5:15 pmSigned by: Sundar Jacobsen MD Technologist: STEPHANIE [facility] Calculus Analysison 08-13-20 17 Ammonium Acid Urate Not Performed Normal [facility] Comment on above: Performed By: #### 2 [id number] ####HEATHER NppAqxg1297 [place] [address] Body weight Measured 6.9 mg [facility] Comment on above: Performed By: #### 2 444491 ####HEATHER UzsCoem5710 [place] [address] CA Hydrogen Phos Not Performed [facility] Comment on above: Performed By: #### 2 022003 ####HEATHER EvnMppa7517 [place] [address] CA Oxalate, Dihydrate Not Performed [facility] Comment on above: Performed By: #### 2 788563 ####HEATHER SmxHkjn2593 [place] [address] CA Oxalate, Monohydr 97 % [facility] Comment on above: Performed By: #### 2 676017 ####HEATHER QloCgbs3539 [place] [address] Calcium Bilirubinate Not Performed Normal [facility] Comment on above: Performed By: #### 2 946586 ####HEATHER TyeFdja7217 [place] [address] Calcium Carbonate Not Performed [facility] Comment on above: Performed By: #### 2 453822 ####HEATHER OyyNhfw3072 [place] [address] Calcium Phos 03 % [facility] Comment on above: Performed By: #### 2 377965 ####HEATHER GxqFymf0829 [place] [address] Cellular Material Not Performed [facility] Comment on above: Performed By: #### 2 935708 ####HEATHERHarmony RogersTveNucy5953 [place] [address] Cholesterol mass conc Not Performed [facility] Comment on above: Performed By: #### 2 808849 ####HEATHERHarmony RogersFvcQycz3855 [place] [address] Color Nom (U) Brown [facility] Comment on above: Performed By: #### 2 383187 ####HEATHERHarmony RogersHcnCekx0232 [place] [address] Comment 1 Not Performed [facility] Comment on above: Performed By: #### 2 816129 ####HEATHER RgdEpns3289 [place] [address] Comment 2 Not Performed [facility] Comment on above: Performed By: #### 2 293425 ####HEATHER MncJekt0029 [place] [address] Comment 3 Comment [facility] Comment on above: Result Comment: Phys willian questions regarding Calculi Analysis contactBoston Nursery for Blind Babies at: [phone]. Performed By: #### 2 103199 ####HEATHERHarmony RogersEodArnz2119 [place] [address] Composition Comment [facility] Comment on above: Result Comment: Perc entage (Represents the % composition) Performed By: #### 2 829367 ####HEATHER DviKbda5903 [place] [address] Cystine Not Performed [facility] Comment on above: Performed By: #### 2 582579 ####HEATHER HikFvuy0802 [place] [address] Disclaimer: Comment [facility] Comment on above: Result Comment: This test was developed and its performance characteristicsdetermined by [employer]. It has not been cleared orapproved by the Food and Drug Administration.Performed At: [address] [id number] Ruth MD Ph:[phone] Performed By: #### 2 375086 ####HEATHER MyuYdcf4550 [place] [address] Dried Blood Not Performed [facility] Comment on above: Performed By: #### 2 514143 ####HEATHER MjrPhie2113 [place] [address] [place] Phos Not Performed [facility] Comment on above: Performed By: #### 2 122786 ####HEATHERHarmony RogersSixSmkd4524 [place] [address] [place] Not Performed [facility] Comment on above: Performed By: #### 2 329956 ####HEATHERHarmony RogersUpdWrrg1875 [place] [address] Nidus Comment [facility] Comment on above: Result Comment: Nidu s composed of Calcium oxalate monohydrate. Performed By: #### 2 099732 ####HEATHERHarmony RogersGueZjmg8227 [place] [address] Note: Comment [facility] Comment on above: Result Comment: Calc jose rafael report without photograph will follow via computer,mail, or die trimmer delivery. Performed By: #### 2 204966 ####HEATHERHarmony RogersQjgKnva2542 [place] [address] Shell Not Performed [facility] Comment on above: Performed By: #### 2 013162 ####HEATHER KqpNdgf2633 [place] [address] Size Comment [facility] Comment on above: Result Comment: Spec imen received as fragments. Performed By: #### 2 588256 ####HEATHER UdkGhcb5510 [place] [address] Sodium molar conc Not Performed [facility] Comment on above: Performed By: #### 2 375496 ####HEATHER BowZrwm4036 [place] [address] Surface Crystals Not Performed Normal [facility] Comment on above: Performed By: #### 2 602754 ####HEATHER TzaCwur7946 [place] [address] Triamterene Not Performed Normal [facility] Comment on above: Performed By: #### 2 232732 ####HEATHER FoaTjic0358 [place] [address] Uric Acid Dihydrate Not Performed Normal [facility] Comment on above: Performed By: #### 2 697484 ####HEATHER BgoUbgd8811 [place] [address] Uric Acid. Not Performed Normal [facility] Comment on above: Performed By: #### 2 493123 ####HEATHER BisPvhu0976 [place] [address] C Urineon 08-12-2017 C Urine Final Report: Rare N ormal skin naima isolated Normal [facility] Comment on above: Performed By: #### 2 845856 ####HEATHER RogersErcWghl8837 [place] [address] XR Abdomen APon 08-11-2017 XR Abdomen AP Exam Date/Time:08/11 09:43 ESTReason for Exam:BILAT RENAL STONESReportXR ABDOMEN AP, 08/11/2017, 9:37 AMCLINICAL STATEMENT: Kidney stone.COMPARISON: CT abdomen and pelvis 08/10/2017.FINDINGS: 2 images were utilized to encompass the abdomen and pelvis. A rightrenal stent is in place with the proximal end reconstituted in the region ofthe renal fossa and the distal end reconstituting in the region of the urinarybladder. A 12 mm calculus projects in the lower right renal fossa. A smallercalcification is noted superior to this. A 4 mm calculus projects in the lowerleft renal fossa. No definite calculi along the course of the stent or expectedcourse of the left ureter. Bowel gas pattern is nonobstructive. No acuteosseous abnormalities.IMPRESSION:1. Bilateral nephrolithiasis.2. Right ureteral stent in situ. FINAL REPORT Dictated: 08/11/2017 11:34 am Wally Maldonado MD LSigned (Electronic Signature): 08/11/2017 11:34 amSigned by: Wally Maldonado MD Technologist: MGW Normal [facility] XR Urography Retrograde Righ ton 08-11-2017 INR Coag RelTime (Bld) Exam Date/Time:08/06/2017 08:10 ESTReason for Exam:Flank painReportEXAMINATION: XR UROGRAPHY RETROGRADE RIGHT.CLINICAL STATEMENT: Right flank pain.COMPARISON: None.FLUOROSCOPY TIME: Fluoroscopy time measures 23 seconds and one image wasobtained in the OR.FINDINGS: A mild hydronephrosis is present in the right kidney. A uretericstent is seen, with its upper end visualized in the renal pelvis. The lower endis not included on the examination.IMPRESSION:Righ t ureteric stent.Mild hydronephrosis. FINAL REPORT Dictated: 08/11/2017 11:59 am Sundar Jacobsen MD KSigned (Electronic Signature): 08/11/2017 11:59 amSigned by: Sundar Jacobsen MD Technologist: HLL Normal [facility] Auto Diffon 08-10-2017 Basophils Auto #/vol (Bld) 0.0 E3/mcL Normal 0.0-0.[address] [facility] Comment on above: Order Comment: Order Added by Discern Expert. Performed By: #### 2 363084 ####HEATHER Youngo1025 [place] [address] Basophils/100 WBC Auto (Bld) 0.2 % Normal 0.0-2.[address] [facility] Comment on above: Order Comment: Order Added by Discern Expert. Performed By: #### 2 827798 ####HEATHER RogersGwvKtms8862 [place] [address] Eos Absolute 0.0 E3/mcL Normal 0.0-0.[address] [facility] Comment on above: Order Comment: Order Added by Discern Expert. Performed By: #### 2 133157 ####HEATHER RogersSbiProv3027 [place] [address] Eosinophils/100 WBC Auto (Bld) 0.5 % Normal 0.0-11.[address] [facility] Comment on above: Order Comment: Order Added by Discern Expert. Performed By: #### 2 593418 ####HEATHER Youngo1025 [place] [address] Lymphocytes Auto #/vol (Bld) 1.6 E3/mcL Normal 1.2-3.[address] [facility] Comment on above: Order Comment: Order Added by Discern Expert. Performed By: #### 2 061721 ####HEATHER Youngo1025 [place] [address] Lymphocytes/100 WBC Auto (Bld) 15.4 % Low 20.0-55.[address] [facility] Comment on above: Order Comment: Order Added by Discern Expert. Performed By: #### 2 881527 ####HEATHER RogersRziSvcs7751 [place] [address] [place] Absolute 0.8 E3/mcL High 0.0-0.[address] [facility] Comment on above: Order Comment: Order Added by Discern Expert. Performed By: #### 2 024486 ####HEATHER Youngo1025 [place] [address] Monocytes/100 WBC Auto (Bld) 7.4 % Normal 0.0-10.[address] [facility] Comment on above: Order Comment: Order Added by Discern Expert. Performed By: #### 2 173297 ####HEATHER Youngo1025 [place] [address] Neutro Absolute 7.9 E3/mcL High 1.4-6.[address] [facility] Comment on above: Order Comment: Order Added by Discern Expert. Performed By: #### 2 501891 ####HEATHER Youngo1025 [place] [address] Neutro Auto 76.5 % High 37.0-75.[address] [facility] Comment on above: Order Comment: Order Added by Discern Expert. Performed By: #### 2 088763 ####HEATHER Youngo1025 [place] [address] BMPon 08-10-2017 Creatinine mass conc 1.2 mg/dL Normal 0.6-1.3 [facility] Comment on above: Performed By: #### 2 889647 ####HEATHER Youngo1025 [place] [address] Urea nitrogen mass conc 18 mg/dL Normal 7-[address] [facility] Comment on above: Performed By: #### 2 404679 ####HEATHER Youngo1025 [place] [address] Urea nitrogen/Creatinine mass ratio 15.0 ratio Normal 5.4-30.[address] [facility] Comment on above: Performed By: #### 2 454606 ####HEATHER Youngo1025 [place] [address] Calcium mass conc 8.9 mg/dL Normal 8.4-10.2 [facility] Comment on above: Performed By: #### 2 493993 ####HEATHER Youngo1025 [place] [address] Chloride molar conc 108 mmol/L High 98-107 [facility] Comment on above: Performed By: #### 2 527559 ####HEATHER Youngo1025 [place] [address] CO2 molar conc 24.4 mmol/L Normal 24.0-30.[address] [facility] Comment on above: Performed By: #### 2 643996 ####HEATHER Youngo1025 [place] [address] Glucose mass conc 120 mg/dL High 70-99 [facility] Comment on above: Performed By: #### 2 494697 ####HEATHER Youngo1025 [place] [address] Potassium molar conc 3.7 mmol/L Normal 3.5-5.1 [facility] Comment on above: Performed By: #### 2 715468 ####HEATHER Youngo1025 [place] [address] Sodium molar conc 139 mmol/L Normal 136-145 [facility] Comment on above: Performed By: #### 2 736892 ####HEATHER RogersTkvYwoi9888 [place] [address] CBC w/ Auto Diffon 7 Erythrocyte distribution width Auto Ratio (RBC) 13.4 % Normal 11.5-14.[address] [facility] Comment on above: Performed By: #### 2 310535 ####HEATHER Youngo1025 [place] [address] Hematocrit Auto Volume Fraction (Bld) 42.7 % Normal 42.0-52.[address] [facility] Comment on above: Performed By: #### 2 502171 ####HEATHER RogersWykGgvy6833 [place] [address] Hemoglobin mass conc (Bld) 14.6 g/dL Normal 13.5-18.[address] [facility] Comment on above: Performed By: #### 2 007274 ####HEATHERHarmony RogersBzbNspg0443 [place] [id number] MCH Auto Entitic mass (RBC) 31.6 pg High 27.0-31.[address] [facility] Comment on above: Performed By: #### 2 836166 ####HEATHERHarmony RogersIyfJvle0391 [place] 2370905 MCHC Auto mass conc (RBC) 34.2 g/dL Normal 33.0-37.[address] [facility] Comment on above: Performed By: #### 2 702905 ####HEATHERHarmony RogersDroWhtg1890 [place] 2370905 MCV Auto Entitic volume (RBC) 92.5 fL Normal 78.0-100.[address] [facility] Comment on above: Performed By: #### 2 293208 ####HEATHERHarmony RogersFiiFfzy9767 [place] [id number] Platelet mean volume Auto Entitic volume (Bld) 6.6 fL Low 7.4-11.[address] [facility] Comment on above: Performed By: #### 2 493740 ####HEATHERHarmony RogersTskVzmb6132 [place] [address] Platelets Auto #/vol (Bld) 201 E3/mcL Normal 130-[address] [facility] Comment on above: Performed By: #### 2 033977 ####HEATHER RogersFdrPulv9255 [place] [address] RBC Auto #/vol (Bld) 4.62 E6/mcL Normal 3.90-6.10 [facility] Comment on above: Performed By: #### 2 846852 ####HEATHER DcsEfkz2180 [place] [address] WBC Auto #/vol (Bld) 10.3 E3/mcL Normal 3.6-11.0 [facility] Comment on above: Performed By: #### 2 812564 ####HEATHER KkdCrmo2622 [place] [id number] CT Abdomen/Pelvis w/o Emmett vargas 08-10-2017 CT Abdomen/Pelvis w/o Contrast Exam Date/Time:08/10/2017 15:07 ESTReason for Exam:PainReportEXAM: CT Abdomen/Pelvis w/o ContrastCLINICAL STATEMENT: Right flank pain.COMPARISON: 08/03/2017.TECHNIQUE: CT examination of the abdomen and pelvis without IV contrast.Coronal and sagittal reformations were performed.Dose reduction techniques were achieved by using automated exposure controland/or adjustment of mA and/or kV according to patient size and/or use ofiterative reconstruction technique.FINDINGS: The visualized lung bases and the pleural spaces are clear.Gallstones are present. Allowing for the lack of intravenous contrast, theliver, spleen, pancreas and the adrenal glands are unremarkable. Right ureteralstent appears appropriately positioned with the proximal tip coiled within theright intrarenal collecting system and the distal tip within the urinarybladder. No ureteral calculi are identified. 0.9 cm nonobstructing calculus ispresent within the inferior pole of the right kidney unchanged, 0.5 cmnonobstructing calculus present within the mid right kidney as well as anadditional 0.1 cm calculus within the superior right kidney. Moderate righthydronephrosis is present. A 0.3 cm nonobstructing calculus is present withinthe inferior pole of the left kidney. Bilateral renal cysts are again noted. Noenlarged lymph nodes are visualized within the abdomen or the pelvis. Smallfat-containing left inguinal hernia is present. The appendix has normalappearance. No ascites or focal intraperitoneal fluid collections are present.IMPRESSION:1. Unchanged position of a right ureteral stent. No ureteral calculi areidentified.2. Unchanged bilateral subcentimeter nonobstructing renal calculi. There ismild to moderate right hydronephrosis.3. Stable bilateral renal cysts.4. Cholelithiasis.Exam Date/Time:08/10/2017 15:07 ESTReport5. Small fat-containing left inguinal hernia. FINAL REPORT Dictated: 08/10/2017 4:04 pm Ezra Pendleton MD (Electronic Signature): 08/10/2017 4:04 pmSigned by: José Luis Pendleton MD Technologist: SRH Normal [facility] UA Completeon 08-10-2017 Color Nom (U) Keturah Abnormal Yellow [facility] Comment on above: Performed By: #### 2 [id number] ####HEATHER TrtJozb4842 [place] [address] Glucose mass conc (U) Negative Normal Negative [facility] Comment on above: Performed By: #### 2 404376 ####HEATHERHarmony RogersZenLtkl3141 [place] [address] Ketones Ql (U) Trace Normal [facility] Comment on above: Performed By: #### 2 303146 ####HEATHERHarmony RogersUpjEqlo8208 [place] [address] RBC Test strip #/vol (U) /uL Abnormal 0-[address] [facility] Comment on above: Performed By: #### 2 493134 ####HEATHERHarmony RogersQbaIuau2218 [place] [address] UA Blood 3+ Normal Negative [facility] Comment on above: Result Comment: High concentration of Ascorbic Acid present in urine. This may cause False Negative Occ Blood. Review microscopic results and patient's clinical symptoms. Performed By: #### 2 381460 ####HEATHERHarmony RogersUxsQtrc0555 [place] [address] UA Ascorbic Acid 40 mg/dL High <=19 [facility] Comment on above: Performed By: #### 2 038448 ####HEATHERHarmony RogersKokRtnj0441 [place] [address] UA Bacteria 1+ /HPF Abnormal None [facility] Comment on above: Performed By: #### 2 462879 ####HEATHERHarmony RogersWjbFhel2191 [place] [address] UA Clarity Cloudy Abnormal Clear [facility] Comment on above: Performed By: #### 2 600956 ####HEATHERHarmony RogersStyGafm4223 [place] [id number] UA Leuk Est 1+ Abnormal Negative [facility] Comment on above: Performed By: #### 2 499573 ####HEATHER Youngo1025 [place] [address] UA Mucous Occasional Abnormal Trace [facility] Comment on above: Performed By: #### 2 709090 ####HEATHER Youngo1025 [place] [address] UA Nitrite Positive Abnormal Negative [facility] Comment on above: Performed By: #### 2 379749 ####HEATHER Youngo1025 [place] [address] UA pH 7.0 Normal 4.6-8.[address] [facility] Comment on above: Performed By: #### 2 198966 ####HEATHER Youngo1025 [place] [address] UA Protein 2+ Abnormal Negative [facility] Comment on above: Performed By: #### 2 655060 ####HEATHER Youngo1025 [place] [address] UA Spec Grav 1.015 Normal 1.003-1.[address] [facility] Comment on above: Performed By: #### 2 361366 ####HEATHER Youngo1025 [place] [address] UA Urobilinogen 4.0 mg/dL Abnormal [facility] Comment on above: Performed By: #### 2 902665 ####HEATHER Youngo1025 [place] [address] UA WBC >50 Abnormal 0-[address] [facility] Comment on above: Performed By: #### 2 743384 ####HEATHER Youngo1025 [place] [address] Urobilinogen Test strip Qn (U) Negative Normal Negative [facility] Comment on above: Performed By: #### 2 713429 ####HEATHER Youngo1025 [place] [address] eGFRon 08-10-2017 eGFR AA >[address] [facility] Comment on above: Order Comment: Order added by Discern Expert. Performed By: #### 2 294719 ####HEATHER Youngo1025 [place] [address] GFR/1.73 sq M predicted among non-blacks MDRD vol rate/area (S/P/Bld) mL/min/{1.73_m2} Normal [facility] Comment on above: Order Comment: Order added by Discern Expert. Performed By: #### 2 624928 ####HEATHER Youngo1025 [place] [address] Auto Diffon 08-06-2017 Basophils Auto #/vol (Bld) 0.0 E3/mcL Normal 0.0-0.[address] [facility] Comment on above: Order Comment: Order Added by Discern Expert. Performed By: #### 2 847647 ####HEATHER Youngo1025 [place] [address] Basophils/100 WBC Auto (Bld) 0.3 % Normal 0.0-2.[address] [facility] Comment on above: Order Comment: Order Added by Discern Expert. Performed By: #### 2 850469 ####HEATHER Youngo1025 [place] [address] Eos Absolute 0.0 E3/mcL Normal 0.0-0.[address] [facility] Comment on above: Order Comment: Order Added by Discern Expert. Performed By: #### 2 858961 ####HEATHER RogersGonCxbi4814 [place] [address] Eosinophils/100 WBC Auto (Bld) 0.4 % Normal 0.0-11.[address] [facility] Comment on above: Order Comment: Order Added by Discern Expert. Performed By: #### 2 149895 ####HEATHER RogersXngAmyb1798 [place] [address] Lymphocytes Auto #/vol (Bld) 1.1 E3/mcL Low 1.2-3.[address] [facility] Comment on above: Order Comment: Order Added by Discern Expert. Performed By: #### 2 922838 ####HEATHER RogersXxgWlfx6062 [place] [address] Lymphocytes/100 WBC Auto (Bld) 10.1 % Low 20.0-55.[address] [facility] Comment on above: Order Comment: Order Added by Discern Expert. Performed By: #### 2 006528 ####HEATHER RogersZmpXddz8756 [place] [address] [place] Absolute 0.6 E3/mcL Normal 0.0-0.[address] [facility] Comment on above: Order Comment: Order Added by Discern Expert. Performed By: #### 2 164839 ####HEATHER Youngo1025 [place] [address] Monocytes/100 WBC Auto (Bld) 5.0 % Normal 0.0-10.[address] [facility] Comment on above: Order Comment: Order Added by Discern Expert. Performed By: #### 2 830617 ####HEATHER Youngo1025 [place] [address] Neutro Absolute 9.4 E3/mcL High 1.4-6.[address] [facility] Comment on above: Order Comment: Order Added by Discern Expert. Performed By: #### 2 802115 ####HEATHER Youngo1025 [place] [address] Neutro Auto 84.2 % High 37.0-75.[address] [facility] Comment on above: Order Comment: Order Added by Discern Expert. Performed By: #### 2 022120 ####HEATHER Youngo1025 [place] [address] BMPon 08-06-2017 Creatinine mass conc 1.4 mg/dL High 0.6-1.3 [facility] Comment on above: Performed By: #### 2 413137 ####HEATHER Youngo1025 [place] [address] Urea nitrogen mass conc 18 mg/dL Normal 7-[address] [facility] Comment on above: Performed By: #### 2 379121 ####HEATHER Youngo1025 [place] [address] Urea nitrogen/Creatinine mass ratio 12.9 ratio Normal 5.4-30.[address] [facility] Comment on above: Performed By: #### 2 236798 ####HEATHER Youngo1025 [place] [address] Calcium mass conc 8.9 mg/dL Normal 8.4-10.2 [facility] Comment on above: Performed By: #### 2 585573 ####HEATHER Youngo1025 [place] [address] Chloride molar conc 106 mmol/L Normal 98-107 [facility] Comment on above: Performed By: #### 2 742171 ####HEATHER RogersGnkJvtw7187 [place] [address] CO2 molar conc 24.6 mmol/L Normal 24.0-30.[address] [facility] Comment on above: Performed By: #### 2 695144 ####HEATHER RogersBlpUfdi4667 [place] [address] Glucose mass conc 126 mg/dL High 70-99 [facility] Comment on above: Performed By: #### 2 316057 ####HEATHER Youngo1025 [place] [address] Potassium molar conc 3.7 mmol/L Normal 3.5-5.1 [facility] Comment on above: Performed By: #### 2 299768 ####HEATHER Youngo1025 [place] [address] Sodium molar conc 138 mmol/L Normal 136-145 [facility] Comment on above: Performed By: #### 2 751617 ####HEATHER Youngo1025 [place] [address] CBC w/ Auto Diffon 7 Erythrocyte distribution width Auto Ratio (RBC) 13.9 % Normal 11.5-14.5 [facility] [facility] Comment on above: Performed By: #### 2 [id number] ####HEATHER Youngo1025 [place] [address] Hematocrit Auto Volume Fraction (Bld) 44.1 % Normal 42.0-52.[address] [facility] Comment on above: Performed By: #### 2 [id number] ####HEATHER Youngo10[address] [place] [address] Hemoglobin mass conc (Bld) 15.0 g/dL Normal 13.5-18.[address] [facility] Comment on above: Performed By: #### 2 [id number] ####HEATHER RogersEieIoat1394 [place] [address] MCH Auto Entitic mass (RBC) 31.7 pg High 27.0-31.[address] [facility] Comment on above: Performed By: #### 2 [id number] ####HEATHER RogersSgpXasr0142 [place] [id number] MCHC Auto mass conc (RBC) 34.0 g/dL Normal 33.0-37.[address] [facility] Comment on above: Performed By: #### 2 [id number] ####HEATHER Youngo10[address] [place] [id number] MCV Auto Entitic volume (RBC) 93.1 fL Normal 78.0-100.[address] [facility] Comment on above: Performed By: #### 2 400179 ####HEATHER Youngo10[address] [place] [phone] Platelet mean volume Auto Entitic volume (Bld) 7.1 fL Low 7.4-11.[address] [facility] Comment on above: Performed By: #### 2 [id number] ####HEATHER Youngo10[address] [place] [phone] Platelets Auto #/vol (Bld) 180 E3/mcL Normal 130-[address] [facility] Comment on above: Performed By: #### 2 [id number] ####HEATHER RogersIvlAjvk2559 [place] [phone] RBC Auto #/vol (Bld) 4.73 E6/mcL Normal 3.90-6.10 [facility] Comment on above: Performed By: #### 2 [id number] ####HEATHER Youngo[address] [place] [phone] WBC Auto #/vol (Bld) 11.2 E3/mcL High 3.6-11.0 [facility] Comment on above: Performed By: #### 2 147523 ####HEATHER RogersZgdDgqi3084 [place] [phone] UA Completeon 08-06-2017 Color Nom (U) Keturah Abnormal Yellow [facility] Comment on above: Performed By: #### 8 [id number] ####HEATHER Urinalysis Automated Xovfmrjjpf0385 [place] [phone] Glucose mass conc (U) Negative Normal Negative [facility] Comment on above: Performed By: #### 8 [id number] ####HEATHER Urinalysis Automated Kkfzmiinqr5042 [place] [address] Ketones Ql (U) Trace Normal [facility] Comment on above: Performed By: #### 8 [id number] ####HEATHER Urinalysis Automated Fbbzfgwbwu7090 [place] [address] RBC Test strip #/vol (U) /uL Abnormal 0-[address] [facility] Comment on above: Performed By: #### 8 [id number] ####HEATHER Urinalysis Automated [address] [place] [address] UA Blood 3+ Normal Negative [facility] Comment on above: Result Comment: High concentration of Ascorbic Acid present in urine. This may cause False Negative Occ Blood. Review microscopic results and patient's clinical symptoms. Performed By: #### 8 [id number] ####HEATHER Urinalysis Automated Dtdgeyzpej[address] [place] [address] UA Ascorbic Acid 40 mg/dL High <=19 [facility] Comment on above: Performed By: #### 8 [id number] ####HEATHER Urinalysis Automated Noezdnuzgq[address] [place] [address] UA Clarity Cloudy Abnormal Clear [facility] Comment on above: Performed By: #### 8 [id number] ####HEATHER Urinalysis Automated Oxryapugsq6980[address] [place] [address] UA Leuk Est Negative Normal Negative [facility] Comment on above: Performed By: #### 8 [id number] ####HEATHER Urinalysis Automated Wdvxjjgoby[address] [place] [address] UA Mucous Trace Abnormal Trace [facility] Comment on above: Performed By: #### 8 [id number] ####HEATHER Urinalysis Automated Gxaepdpjqe[address] [place] [address] UA Nitrite Negative Normal Negative [facility] Comment on above: Performed By: #### 8 [id number] ####HEATHER Urinalysis Automated T[address]fzvqbjbp[address] [place] [address] UA pH 5.0 Normal 4.6-8.[address] [facility] Comment on above: Performed By: #### 8 [id number] ####HEATHER Urinalysis Automated Gppmofifgi[address] [place] [address] UA Protein 2+ Abnormal Negative [facility] Comment on above: Performed By: #### 8 [id number] ####HEATHER Urinalysis Automated Vuxfeciuyt4941 [place] [address] UA Spec Grav 1.023 Normal 1.003-1.[address] [facility] Comment on above: Performed By: #### 8 [id number] ####HEATHER Urinalysis Automated Xxklnlarjr4133 [place] [address] UA Squam Epithelial 0-5 Normal 0-5 [facility] Comment on above: Performed By: #### 8 [id number] ####HEATHER Urinalysis Automated Pyetloiyfm4386 [place] [address] UA Urobilinogen Negative Normal [facility] Comment on above: Performed By: #### 8 [id number] ####HEATHER Urinalysis Automated Pdqnorqafo0587 [place] [address] Urobilinogen Test strip Qn (U) Negative Normal Negative [facility] Comment on above: Performed By: #### 8 [id number] ####HEATHER Urinalysis Automated Bxasgdgdlr[address] [place] [address] XR Abdomen APon 08-06-2017 XR Abdomen AP Exam Date/Time:2016 06:22 ESTReason for Exam:Kidney stoneReportABDOMEN ONE VIEW, 08/06/2017:CLINICAL INDICATION: Right lower quadrant and flank pain beginning 08/01/2017,becoming severe last night.COMPARISON: Abdominal CT scan, 08/03/2017.FINDINGS: The renal silhouettes are suboptimally evaluated due to acombination of overlying colonic gas and stool and film underpenetrationrelated to patient's large body habitus. An 11 mm stone is seen in the midpoleof the right kidney. No other urinary tract calculi are seen on either side.The bowel gas pattern is unremarkable. A moderate volume of colonic stool isnoted.IMPRESSION:1. Single 11 mm right renal calculus identified. Additional bilateral renalcalculi and a 6 mm stone in the proximal right ureter were seen on thepreceding abdominal CT scan, but are not well-visualized by plain filmradiography. Follow-up CT scanning could be considered.2. No acute abdominal findings. FINAL REPORT Dictated: 08/06/2017 6:59 am Kecia Telles MDigned (Electronic Signature): 08/06/2017 6:59 amSigned by: Koki SKY, Figueroa Technologist: SULLY Normal [facility] eGFRon 08-06-2017 eGFR AA >[address] [facility] Comment on above: Order Comment: Order added by Cristina Expert. Performed By: #### 2 [id number] ####HEATHER Youngo[address] [place] [address] GFR/1.73 sq M predicted among non-blacks MDRD vol rate/area (S/P/Bld) 52 mL/min/1.[address] [facility] Comment on above: Order Comment: Order added by Cristina Expert. Performed By: #### 2 [id number] ####HEATHER RogersFknFavr4641 [place] [address] Auto Diffon 08-03-2017 Basophils Auto #/vol (Bld) 0.0 E3/mcL Normal 0.0-0.[address] [facility] Comment on above: Order Comment: Order Added by Cristina Expert. Performed By: #### 2 696856 ####HEATHER RogersNjtUgwr9631 [place] [address] Basophils/100 WBC Auto (Bld) 0.5 % Normal 0.0-2.[address] [facility] Comment on above: Order Comment: Order Added by Cristina Expert. Performed By: #### 2 [id number] ####HEATHER RogersVyqLzli8809 [place] [address] Eos Absolute 0.1 E3/mcL Normal 0.0-0.[address] [facility] Comment on above: Order Comment: Order Added by Cristina Expert. Performed By: #### 2 863826 ####HEATHER RogersCkvZdsf6629 [place] [address] Eosinophils/100 WBC Auto (Bld) 1.2 % Normal 0.0-11.[address] [facility] Comment on above: Order Comment: Order Added by Cristina Expert. Performed By: #### 2 862689 ####HEATHER RogersYnmDatf5214 [place] [address] Lymphocytes Auto #/vol (Bld) 2.1 E3/mcL Normal 1.2-3.[address] [facility] Comment on above: Order Comment: Order Added by Cristina Expert. Performed By: #### 2 825594 ####HEATHER Youngo[address] [place] [address] Lymphocytes/100 WBC Auto (Bld) 26.4 % Normal 20.0-55.[address] [facility] Comment on above: Order Comment: Order Added by Discern Expert. Performed By: #### 2 [id number] ####HEATHER Youngo[address] [place] [address] [place] Absolute 0.5 E3/mcL Normal 0.0-0.[address] [facility] Comment on above: Order Comment: Order Added by Discern Expert. Performed By: #### 2 172081 ####HEATHER [address]oungo[address] [place] [address] Monocytes/100 WBC Auto (Bld) 6.0 % Normal 0.0-10.[address] [facility] Comment on above: Order Comment: Order Added by Discern Expert. Performed By: #### 2 620170 ####HEATHER [address]oungo[address] [place] [address] Neutro Absolute 5.4 E3/mcL Normal 1.4-6.[address] [facility] Comment on above: Order Comment: Order Added by Discern Expert. Performed By: #### 2 [id number] ####HEATHER [address]oungo[address] [place] [address] Neutro Auto 65.9 % Normal 37.0-75.[address] [facility] Comment on above: Order Comment: Order Added by Discern Expert. Performed By: #### 2 066131 ####HEATHER [address]oungo[address] [place] [address] BMPon 08-03-2017 Creatinine mass conc 1.0 mg/dL Normal 0.6-1.3 [facility] Comment on above: Performed By: #### 2 403423 ####HEATHER RogersOifAyxk4341 [place] [address] Urea nitrogen mass conc 13 mg/dL Normal 7-[address] [facility] Comment on above: Performed By: #### 2 557593 ####HEATHER RogersFhiQkpx9026 [place] [address] Urea nitrogen/Creatinine mass ratio 13.0 ratio Normal 5.4-30.[address] [facility] Comment on above: Performed By: #### 2 957618 ####HEATHER TfmMnhx0469 [place] [address] Calcium mass conc 9.0 mg/dL Normal 8.4-10.2 [facility] Comment on above: Performed By: #### 2 248422 ####HEATHER IsjTgjk8522 [place] [address] Chloride molar conc 111 mmol/L High 98-107 [facility] Comment on above: Performed By: #### 2 303517 ####HEATHER LhkUhzn2804 [place] [address] CO2 molar conc 24.2 mmol/L Normal 24.0-30.[address] [facility] Comment on above: Performed By: #### 2 512086 ####HEATHER NswUhnk4396 [place] [address] Glucose mass conc 102 mg/dL High 70-99 [facility] Comment on above: Performed By: #### 2 816016 ####HEATHER XxwHmpo2964 [place] [address] Potassium molar conc 3.8 mmol/L Normal 3.5-5.1 [facility] Comment on above: Performed By: #### 2 660234 ####HEATHER XlsRhoh0418 [place] [address] Sodium molar conc 142 mmol/L Normal 136-145 [facility] Comment on above: Performed By: #### 2 862384 ####HEATHER RayHngo6882 [place] [address] CBC w/ Auto Diffon 7 Erythrocyte distribution width Auto Ratio (RBC) 14.2 % Normal 11.5-14.[address] [facility] Comment on above: Performed By: #### 2 063175 ####HEATHER RogersGunSksg4619 [place] [address] Hematocrit Auto Volume Fraction (Bld) 49.1 % Normal 42.0-52.[address] [facility] Comment on above: Performed By: #### 2 845375 ####HEATHER RogersQvaFbpu4277 [place] [address] Hemoglobin mass conc (Bld) 16.6 g/dL Normal 13.5-18.[address] [facility] Comment on above: Performed By: #### 2 583216 ####HEATHERHarmony YoungUcdUjsn3823 [place] [phone] MCH Auto Entitic mass (RBC) 31.8 pg High 27.0-31.[address] [facility] Comment on above: Performed By: #### 2 105893 ####HEATHERHarmony YoungNggJihf9542 [place] [address]0905 MCHC Auto mass conc (RBC) 33.8 g/dL Normal 33.0-37.[address] [facility] Comment on above: Performed By: #### 2 872176 ####HEATHERHarmony YoungCrtOfcb4947 [place] [address] MCV Auto Entitic volume (RBC) 94.0 fL Normal 78.0-100.[address] [facility] Comment on above: Performed By: #### 2 941343 ####HEATHERHarmony YoungKtySusa9492 [place] [address] Platelet mean volume Auto Entitic volume (Bld) 6.9 fL Low 7.4-11.[address] [facility] Comment on above: Performed By: #### 2 378112 ####HEATHER RkoBxzc5082 [place] [address] Platelets Auto #/vol (Bld) 191 E3/mcL Normal 130-[address] [facility] Comment on above: Performed By: #### 2 866716 ####HEATHERHarmony RogersTzvApox0352 [place] [address]09[address] RBC Auto #/vol (Bld) 5.23 E6/mcL Normal 3.90-6.10 [facility] Comment on above: Performed By: #### 2 390559 ####HEATHER AbkZugp8388 [place] [address] WBC Auto #/vol (Bld) 8.1 E3/mcL Normal 3.6-11.0 [facility] Comment on above: Performed By: #### 2 113019 ####HEATHERHarmony RogersCntOfmq0757 [place] [id number] CT Abdomen/Pelvis w/o Contra ston 08-03-2017 CT Abdomen/Pelvis w/o Contrast Exam Date/Time:08/03/2017 11:15 ESTReason for Exam:PainReportEXAM: CT ABDOMEN AND PELVIS WITHOUT CONTRASTCLINICAL STATEMENT: Right-sided pain, hematuria.COMPARISON: None.TECHNIQUE: CT examination of the abdomen and pelvis without IV contrast.Coronal and sagittal reformations were performed.Dose reduction techniques were achieved by using automated exposure controland/or adjustment of mA and/or kV according to patient size and/or use ofiterative reconstruction technique.FINDINGS: The heart size is within normal limits. Coronary arterycalcifications are present. There is mild dependent atelectasis bilaterally atthe lung bases.The liver, spleen, pancreas, and adrenals are unremarkable. Nonobstructingrenal stones are present bilaterally, measuring up to 9 mm on the right and 4mm on the left. A right renal cyst is present. There is an obstructing stone inthe proximal right ureter measuring 6 mm, with mild right hydronephrosis. Noadditional ureteral stone is present.There is no bowel obstruction. Mild colonic diverticulosis is present withoutinflammation to suggest diverticulitis. The appendix is normal. There is nofree air or free fluid in the abdomen or pelvis. No abdominal or pelviclymphadenopathy is identified. Mild scattered atherosclerosis is noted.The prostate is mildly enlarged and contains calcifications. There is a smallfat-containing left inguinal hernia. No acute fracture or destructive bonylesion is present.IMPRESSION:1. 6 mm obstructing stone in the proximal right ureter, with mild righthydronephrosis.2. No additional acute inflammatory process in the abdomen or pelvis.3. Additional nonobstructing stones are present bilaterally in the renalcollecting systems, measuring up to 9 mm on the right.Exam Date/Time:08/03/2017 11:15 ESTReport4. Coronary artery calcifications. FINAL REPORT Dictated: 08/03/2017 1:35 pm Glenis SKY, Blair MEIigned (Electronic Signature): 08/03/2017 1:35 pmSigned by: Blair Galvin MD Technologist: LILIAN Normal [facility] UA Completeon 08-03-2017 Color Nom (U) Keturah Abnormal Yellow [facility] Comment on above: Performed By: #### 8 [id number] ####HEATHER Urinalysis Automated Rnjyyxorjv6721 [place] [address] Glucose mass conc (U) Negative Normal Negative [facility] Comment on above: Performed By: #### 8 [id number] ####HEATHER Urinalysis Automated [address]af[address]fmil[address] [place] [address] Ketones Ql (U) Trace Normal [facility] Comment on above: Performed By: #### 8 [id number] ####HEATHER Urinalysis Automated Ciuhhzeryv[address] [place] [address] RBC Test strip #/vol (U) /uL Abnormal 0-[address] [facility] Comment on above: Performed By: #### 8 5130927 ####HEATHER Urinalysis Automated Ompbhgymtb[address] [place] [address] UA Blood 3+ Normal Negative [facility] Comment on above: Result Comment: High concentration of Ascorbic Acid present in urine. This may cause False Negative Occ Blood. Review microscopic results and patient's clinical symptoms. Performed By: #### 8 [id number] ####HEATHER Urinalysis Automated Ueacgsousr[address] [place] [address] UA Ascorbic Acid 40 mg/dL High <=19 [facility] Comment on above: Performed By: #### 8 [id number] ####HEATHER Urinalysis Automated Msziwkieum09[address] [place] [address] UA Clarity Cloudy Abnormal Clear [facility] Comment on above: Performed By: #### 8 [id number] ####HEATHER Urinalysis Automated Ykytqmxuqj[address] [place] [address] UA Leuk Est Trace Normal Negative [facility] Comment on above: Performed By: #### 8 [id number] ####HEATHER Urinalysis Automated Ozeieblark5677 [place] [address] UA Mucous Many Abnormal Trace [facility] Comment on above: Performed By: #### 8 [id number] ####HEATHER Urinalysis Automated Zyynvdbdjo[address] [place] [address] UA Nitrite Negative Normal Negative [facility] Comment on above: Performed By: #### 8 [id number] ####HEATHER Urinalysis Automated Uyaeyfsxjx58[address] [place] [address] UA pH 5.0 Normal 4.6-8.[address] [facility] Comment on above: Performed By: #### 8 [id number] ####HEATHER Urinalysis Automated Snqbqgdizs7013 [place] [address] UA Protein 2+ Abnormal Negative [facility] Comment on above: Performed By: #### 8 [id number] ####HEATHER Urinalysis Automated Rolvfbtthx[address] [place] [address] UA Spec Grav 1.019 Normal 1.003-1.[address] [facility] Comment on above: Performed By: #### 8 [id number] ####HEATHER Urinalysis Automated Tufcpcqubs[address] [place] [address] UA Urobilinogen Negative Normal [facility] Comment on above: Performed By: #### 8 [id number] ####HEATHER Urinalysis Automated Pjgbccscku[address] [place] [address] UA WBC >50 Abnormal 0-[address] [facility] Comment on above: Performed By: #### 8 [id number] ####HEATHER Urinalysis Automated Ryydiotrci1920[address] [place] [address] Urobilinogen Test strip Qn (U) Negative Normal Negative [facility] Comment on above: Performed By: #### 8 [id number] ####HEATHER Urinalysis Automated Tviamaeied282[address] [place] [address] eGFRon 08-03-2017 eGFR AA >[address] [facility] Comment on above: Order Comment: Order added by Discern Expert. Performed By: #### 1 [id number] ####HEATHER RuoVhfs0975 [place] [id number] GFR/1.73 sq M predicted among non-blacks MDRD vol rate/area (S/P/Bld) mL/min/{1.73_m2} Normal [facility] Comment on above: Order Comment: Order added by Discern Expert. Performed By: #### 1 [id number] ####HEATHER TojWkzh7391 [place] [id number] TSHon 05-19-2017 Thyrotropin Qn 0.86 mIU/m Normal 0.30-5.[address] [facility] Comment on above: Performed By: #### 2 [id number] ####HEATHER BhxJoez6330 [place] [address] Vital Signs Date Time Vital Sign Value Performing Clinician Facility 05-05-2025 01:59-0400 Body temperature 96.91 [degF] Elicia Love DO Work Phone: [facility] 05-05-2025 01:59-0400 Diastolic blood pressure 75 mm[Hg] Elicia Batistaersen DO Work Phone: 9(173)713-928084 [place] [address] 05-05-2025 01:59-0400 Heart rate 67 /min Elicia Batistaersen DO Work Phone: 3(663)782-627599 [place] [address] 05-05-2025 01:59-0400 Respiratory rate 16 /min Elicia Love DO Work Phone: 4(588)650-980099 [place] [address] 05-05-2025 01:59-0400 Systolic blood pressure 157 mm[Hg] Elicia Batistaersen DO Work Phone: 0(835)516-613499 [place] [address] 05-05-2025 01:58-0400 SaO2% (BldA) [Mass fraction] 96 % Elicia Batistaersen DO Work Phone: 5(850)198-379984 [place] [address] 05-04-2025 21:54-0400 Body height 175.3 cm Elicia Batistaersen DO Work Phone: 8(669)737-783499 [place] [address] 05-04-2025 21:54-0400 Body mass index (BMI) [Ratio] 35.44 kg/m2 Elicia Batistaersen DO Work Phone: 5(054)053-989684 [place] [address] 05-04-2025 21:54-0400 Body weight 108.86 kg Elicia Batistaersen DO Work Phone: [facility] 04-25-2025 17:15-0400 Body temperature 97.3 [degF] Dr. Jarad Rey MD Work Phone: [facility] 04-25-2025 17:15-0400 Diastolic blood pressure 85 mm[Hg] Dr. Jarad Rey MD Work Phone: [facility] 04-25-2025 17:15-0400 Heart rate 56 /min Dr. Jarad Rey MD Work Phone: [facility] 04-25-2025 17:15-0400 Respiratory rate 16 /min Dr. Jarad Rey MD Work Phone: [facility] 04-25-2025 17:15-0400 SaO2% (BldA) [Mass fraction] 100 % Dr. Jarad Rey MD Work Phone: [facility] 04-25-2025 17:15-0400 Systolic blood pressure 152 mm[Hg] Dr. Jarad Rey MD Work Phone: [facility] 04-25-2025 12:03-0400 Body height 175.[address] Jarad Rey MD Work Phone: [facility] 04-25-2025 12:03-0400 Body mass index (BMI) [Ratio] 36.1 kg/m2 Dr. Jarad Rey MD Work Phone: [facility] 04-25-2025 12:03-0400 Body weight [address] Jarad Rey MD Work Phone: [facility] 03-25-2025 22:58-0400 Diastolic blood pressure 99 mm[Hg] Zak Alvarez MD Work Phone: [facility] 03-25-2025 22:58-0400 Heart rate 58 /min Zak Alvarez MD Work Phone: [facility] 03-25-2025 22:58-0400 Respiratory rate 16 /min Zak Alvarez MD Work Phone: [facility] 03-25-2025 22:58-0400 SaO2% (BldA) [Mass fraction] 96 % Zak Alvarez MD Work Phone: [facility] 03-25-2025 22:58-0400 Systolic blood pressure 155 mm[Hg] Zak Alvarez MD Work Phone: [facility] 03-25-2025 21:41-0400 Body height 175.3 cm Zak Alvarez MD Work Phone: [facility] 03-25-2025 21:41-0400 Body mass index (BMI) [Ratio] 36.18 kg/m2 Zak Alvarez MD Work Phone: [facility] 03-25-2025 21:41-0400 Body temperature 97.59 [degF] Zak Alvarez MD Work Phone: [facility] 03-25-2025 21:41-0400 Body weight 111.13 kg Zak Alvarez MD Work Phone: [facility] 09-13-2024 10:56-0500 Body mass index (BMI) [Ratio] 35.29 kg/m2 Isabela Bazan MD Work Phone: 7(629)754-602883 [place] [address] 09-13-2024 10:56-0500 Body weight 108.41 kg Isabela Bazan MD Work Phone: 9(421)567-709970 [place] [address] 09-13-2024 10:56-0500 Diastolic blood pressure 90 mm[Hg] Isabela Bazan MD Work Phone: 8(646)176-211583 [place] [address] 09-13-2024 10:56-0500 Heart rate 61 /min Isabela Bazan MD Work Phone: 7(492)113-429583 [place] [address] 09-13-2024 10:56-0500 Systolic blood pressure 150 mm[Hg] Isabela Bazan MD Work Phone: [facility] 02-23-2024 11:08-0400 Body mass index (BMI) [Ratio] 34.11 kg/m2 Isabela Bazan MD Work Phone: 1(444)578-983083 [place] [address] 02-23-2024 11:08-0400 Body weight 104.78 kg Isabela Bazan MD Work Phone: 4(794)340-717283 [place] [address] 02-23-2024 11:08-0400 Respiratory rate 16 /min Isabela Bazan MD Work Phone: 3(837)391-740370 [place] [address] 11-15-2023 15:27-0400 Body mass index (BMI) [Ratio] 33.97 kg/m2 Isabela Bazan MD Work Phone: [facility] 11-15-2023 15:27-0400 Body weight 104.33 kg Isabela Bazan MD Work Phone: [facility] 11-15-2023 15:27-0400 Respiratory rate 16 /min Isabela Bazan MD Work Phone: [facility] 11-09-2023 21:02-0400 Diastolic blood pressure 71 mm[Hg] Jarad Rey MD Work Phone: [facility] 11-09-2023 21:02-0400 Heart rate 74 /min Jarad Rey MD Work Phone: [facility] 11-09-2023 21:02-0400 Respiratory rate 16 /min Jarad Rey MD Work Phone: [facility] 11-09-2023 21:02-0400 SaO2% (BldA) [Mass fraction] 95 % Jarad Rey MD Work Phone: [facility] 11-09-2023 21:02-0400 Systolic blood pressure 121 mm[Hg] Jarad Rey MD Work Phone: [facility] 11-09-2023 18:33-0400 Body height 175.3 cm Jarad eRy MD Work Phone: [facility] 11-09-2023 18:33-0400 Body mass index (BMI) [Ratio] 33.97 kg/m2 Jarad Rey MD Work Phone: [facility] 11-09-2023 18:33-0400 Body temperature 98.29 [degF] Jarad Rey MD Work Phone: [facility] 11-09-2023 18:33-0400 Body weight 104.33 kg Jarad Rey MD Work Phone: [facility] 11-01-2023 10:15-0500 Body weight 107.05 kg Isabela Bazan MD Work Phone: [facility] 10-07-2023 10:21-0500 Body weight 107.05 kg Isabela Bazan MD Work Phone: [facility] 10-07-2023 10:21-0500 Respiratory rate 16 /min Isabela Bazan MD Work Phone: [facility] – [place] 02-17-2021 20:57-0400 Body height 175.3 cm Oscar Dickens MD Work Phone: [employer] Work Phone: 02-17-2021 20:57-0400 Body mass index (BMI) [Ratio] 34.7 kg/m2 Oscar Dickens MD Work Phone: [employer] Work Phone: 02-17-2021 20:57-0400 Body temperature 98.8 [degF] Oscar Dickens MD Work Phone: [employer] Work Phone: 02-17-2021 20:57-0400 Body weight 106.59 kg Oscar Dickens MD Work Phone: [employer] Work Phone: 02-17-2021 20:57-0400 Diastolic blood pressure 82 mm[Hg] Oscar Dickens MD Work Phone: [employer] Work Phone: 02-17-2021 20:57-0400 Heart rate 63 /min Oscar Dickens MD Work Phone: [employer] Work Phone: 02-17-2021 20:57-0400 Respiratory rate 16 /min Oscar Dickens MD Work Phone: [employer] Work Phone: 02-17-2021 20:57-0400 SaO2% (BldA) [Mass fraction] 96 % Oscar Dickens MD Work Phone: [employer] Work Phone: 02-17-2021 20:57-0400 Systolic blood pressure 145 mm[Hg] Oscar Dickens MD Work Phone: [employer] Work Phone: 09-14-2019 09:55-0500 Diastolic blood pressure 63 mm[Hg] Familia Oliva MD Work Phone: [employer] Work Phone: 09-14-2019 09:55-0500 Heart rate 65 /min Familia Oliva MD Work Phone: [employer] Work Phone: 09-14-2019 09:55-0500 Respiratory rate 16 /min Familia Oliva MD Work Phone: [employer] Work Phone: 09-14-2019 09:55-0500 SaO2% (BldA) [Mass fraction] 95 % Familia Oliva MD Work Phone: [employer] Work Phone: 09-14-2019 09:55-0500 Systolic blood pressure 135 mm[Hg] Familia Oliva MD Work Phone: [employer] Work Phone: 09-14-2019 09:30-0500 Body temperature 97.59 [degF] Familia Oliva MD Work Phone: [employer] Work Phone: 09-14-2019 07:16-0500 Body height 175.3 cm Familia Oliva MD Work Phone: [employer] Work Phone: 09-14-2019 07:16-0500 Body mass index (BMI) [Ratio] 34.7 kg/m2 Familia Oliva MD Work Phone: [employer] Work Phone: 09-14-2019 07:16-0500 Body weight 106.59 kg Familia Oliva MD Work Phone: [facility] Work Phone: 05-19-2017 14:04-0400 BMI (Body Mass Index) 32.93 kg/m2 [facility] Work Phone: 05-19-2017 14:04-0400 BP Diastolic 72 mm[Hg] [facility] Work Phone: 05-19-2017 14:04-0400 BP Systolic 125 mm[Hg] [facility] Work Phone: 05-19-2017 14:04-0400 Height 175.3 cm [facility] Work Phone: 05-19-2017 14:04-0400 Pulse (Heart Rate) 49 /min [facility] Work Phone: 05-19-2017 14:04-0400 Pulse Oximetry 96 % [facility] Work Phone: 05-19-2017 14:04-0400 Weight 101.15 kg Trace Barreto [facility] Work Phone: Encounters Encounter Date Encounter Type Care Provider Facility Start: 05-04-2025 End: 05-05-2025 Emergency department patient visit Elicia Love DO Work Phone: [facility] Comment on above: Ureteral calculus (P rimary Dx) Start: 04-25-2025 End: 04-25-2025 Admission to same day surgery center Dr. Harjit Lam MD -[facility] Start: 04-25-2025 End: 04-25-[address] Jarad Rey MD Work Phone: -[facility] Start: 04-10-2025 End: 04-10-[address] Jarad Rey MD Work Phone: -Radiology [facility] Start: 04-10-2025 End: 04-10-2025 Patient encounter procedure Melba Barr -Radiology [facility] Work Phone: Start: 04-09-2025 End: 04-11-2025 ambulatory [facility] Start: 04-09-2025 End: 04-11-2025 Subsequent hospital visit by physician Kaylynn Ashton MD Work Phone: [facility] Ultrasound Comment on above: Gallbladder polyp Start: 03-25-2025 End: 03-26-2025 Emergency department patient visit Zak Alvarez MD Work Phone: [facility] Emergency [facility] Comment on above: Hemorrhagic cystitis (Primary Dx) Start: 09-13-2024 End: 09-13-2024 Office outpatient visit 25 minutes Isabela Bazan MD Work Phone: [facility] Comment on above: History of kidney st ones; Benign prostatic hyperplasia with lower urinary tract symptoms, symptom details unspecified; Nocturia Start: 09-13-2024 End: 09-13-2024 Subsequent hospital visit by physician German Acevedo X-Ray [facility] Comment on above: History of kidney st ones Start: 09-13-2024 End: 09-13-[address] [facility] Ambulatory Start: 06-26-2024 End: 06-26-2024 ambulatory [facility] Start: 06-26-2024 End: 06-26-2024 Encounter for general adult medical examination without abnormal findings [facility] Start: 06-26-2024 End: 06-26-2024 Patient encounter procedure Jarad Rey MD Work Phone: [facility] Start: 06-26-2024 End: 06-26-2024 Subsequent hospital visit by physician Jarad Rey MD Work Phone: [facility] Comment on above: Encounter for annual wellness exam in Medicare patient Start: 02-23-2024 End: 02-23-2024 Office outpatient visit 25 minutes Isabela Bazan MD Work Phone: [facility] Comment on above: Benign prostatic hyp erplasia with lower urinary tract symptoms, symptom details unspecified (Primary Dx); History of kidney stones; Nocturia Start: 02-23-2024 End: 02-23-2024 Subsequent hospital visit by physician German Acevedo X-Ray [facility] Comment on above: History of kidney st ones Start: 02-23-2024 End: 02-23-[address] [facility] Ambulatory Start: 12-16-2023 End: 12-16-2023 Office outpatient visit 25 minutes Isabela Bazan MD Work Phone: [facility] Comment on above: History of kidney st ones; Nocturia; Benign prostatic hyperplasia with lower urinary tract symptoms, symptom details unspecified Start: 12-16-2023 End: 12-16-[address] [facility] Ambulatory Start: 11-15-2023 End: 11-15-2023 Office outpatient visit 25 minutes Isabela Bazan MD Work Phone: [facility] Comment on above: Benign prostatic hyp erplasia with lower urinary tract symptoms, symptom details unspecified; Dysuria; History of kidney stones; Nocturia; Retention of urine Start: 11-15-2023 End: 11-15-2023 [facility] Start: 11-10-2023 End: 11-10-2023 Office outpatient visit 25 minutes Isabela Bazan MD Work Phone: [facility] Comment on above: Nocturia; Dysuria; Benign prostatic hyperplasia with lower urinary tract symptoms, symptom details unspecified Start: 11-10-2023 End: 11-10-[address] [facility] Amb[facility] Start: 11-09-2023 End: 11-09-2023 Emergency department patient visit Jarad Rey MD Work Phone: [facility] Comment on above: Urinary retention (P rimary Dx); Urinary tract infection with hematuria, site unspecified Start: 11-08-2023 End: 11-09-2023 [facility] Start: 11-08-2023 End: 11-08-2023 Phys/qhp telephone evaluation 11-20 min Isabela Bazan MD Work Phone: [facility] Comment on above: Nocturia; Benign prostatic hyperplasia with lower urinary tract symptoms, symptom details unspecified; History of kidney stones; Dysuria Start: 11-08-2023 End: 11-08-[address] [facility] Amb[facility] Start: 11-01-2023 End: 11-01-2023 Patient encounter procedure Isabela Bazan MD Work Phone: [facility] Comment on above: Hematuria, unspecifi ed type (Primary Dx) Start: 11-01-2023 End: 11-01-2023 [facility] Ambulatory Start: 10-07-2023 End: 10-08-2023 [facility] Start: 10-07-2023 End: 10-07-2023 Subsequent hospital visit by physician German Hdez X-Ray [facility] Comment on above: History of kidney st ones Start: 10-07-2023 End: 10-07-2023 Office outpatient new 45 minutes Isabela Bazan MD Work Phone: [facility] Comment on above: Benign prostatic hyp erplasia with lower urinary tract symptoms, symptom details unspecified; Nocturia; History of kidney stones Start: 10-07-2023 End: 10-07-[address] [facility] Start: 08-17-2023 End: 08-17-2023 ambulatory [facility] Start: 12-29-2022 End: 01-02-2023 ambulatory [facility] Start: 06-15-2022 End: 06-15-2022 Subsequent hospital visit by physician Jarad Rey MD Work Phone: [facility] Start: 04-02-2022 End: 04-04-2022 Subsequent hospital visit by physician Serrano X-Ray Room 1 [facility] Radiology Comment on above: SOB (shortness of br eath) Start: 04-02-2022 End: 04-04-2022 Subsequent hospital visit by physician Jarad Rey MD Work Phone: [facility] Comment on above: SOB (shortness of br eath) Start: 01-05-2022 Patient encounter procedure Jarad Rey Work Phone: [facility] Work Phone: Start: 07-03-2021 End: 07-03-2021 Subsequent hospital visit by physician Jarad Rey MD Work Phone: [facility] Comment on above: Multiple thyroid nod ules Start: 06-12-2021 End: 06-12-2021 Patient encounter procedure Jarad Rey MD Work Phone: [facility] Start: 06-12-2021 End: 06-12-2021 Subsequent hospital visit by physician Jarad Rey MD Work Phone: [facility] Comment on above: Annual physical exam ; Prostate cancer screening Start: 02-27-2021 End: 02-27-2021 Subsequent hospital visit by physician Jevon Stress Room 1 [facility] Comment on above: Arrived Start: 02-27-2021 End: 03-01-2021 Subsequent hospital visit by physician Adina Nuc Med Injection Room 1 [facility] Nuclear Medicine Comment on above: THURMAN (dyspnea on exer tion) Start: 02-17-2021 End: 02-17-2021 Emergency department patient visit Oscar Dickens MD Work Phone: [facility] ED Comment on above: Right hand pain (Sybil marilyn Dx) Start: 06-10-2020 End: 06-10-2020 Subsequent hospital visit by physician Jarad [facility] Comment on above: Prostate cancer scre ening; Annual physical exam Start: 09-14-2019 End: 09-14-2019 Subsequent hospital visit by physician Familia Oliva MD Work Phone: [facility] Start: 05-15-2019 End: 05-15-2019 Subsequent hospital visit by physician Noel [facility] Schedule [facility] Comment on above: Annual physical exam Start: 05-08-2019 End: 05-08-2019 Subsequent hospital visit by physician Jevon Ekg Rm 1 EKG Comment on above: Arrived Start: 05-08-2019 End: 05-08-2019 Subsequent hospital visit by physician Noel Ekg Anastacio [facility] Cardiopulmonary Department Comment on above: PVC (premature ventr icular contraction) Start: 05-24-2018 End: 05-24-2018 Patient encounter ESA CASTAÑEDA Facility:[id number] Start: 05-04-2018 Patient encounter Esa Castañeda Fac ility:[facility] Start: 05-04-2018 Patient encounter Esa Dickenscatalinasabrina Fac ility:[facility] Start: 04-26-2018 Patient encounter JUSTUS Hector ity:[facility] Start: 04-26-2018 End: 04-26-2018 Patient encounter Aramis Beaulieu Facility:[facility] Start: 01-05-2018 End: 01-06-2018 Patient encounter Isabela Bazan [facility] Start: 12-09-2017 End: 12-10-2017 Patient encounter Aramis Beaulieu Facility:[facility] Start: 10-26-2017 End: 10-26-2017 Patient encounter Aramis Beaulieu Facility:[facility] Start: 10-25-2017 End: 10-26-2017 Patient encounter Aramis Beaulieu Facility:[facility] Start: 10-15-2017 Patient encounter ARAMIS Ruth acility:[facility] Start: 10-06-2017 End: 10-07-2017 Patient encounter Isabela Bazan [facility] Start: 09-28-2017 End: 09-28-2017 Patient encounter Isabela Bazan Facility:[facility] Start: 09-10-2017 End: 09-11-2017 Patient encounter Isabel[place]azan [place] Start: 08-20-2017 End: 08-20-2017 Patient encounter Aramis Beaulieu Facility:[facility] Start: 08-19-2017 End: 08-20-2017 Patient encounter Isabela Bazan Facility:[facility] Start: 08-11-2017 End: 08-12-2017 Patient encounter Isabela Bazan Facility:[facility] Start: 08-10-2017 End: 08-10-2017 Emergency department patient visit Aramis Beaulieu Facility:[facility] Start: 08-06-2017 End: 08-06-2017 Patient encounter Aramis Beaulieu Facility:[facility] Start: 08-03-2017 End: 08-03-2017 Emergency department patient visit Aramis Beaulieu Facility:[facility] Start: 06-28-2017 Ambulatory TRACE ETIENNE BARRETO [facility] Ambulatory Start: 05-26-2017 Ambulatory TRACE ETIENNE [facility] Ambulatory Start: 05-19-2017 End: 05-25-2017 Ambulatory TRACE ETIENNE [facility] Ambul[facility] Start: 05-19-2017 Office outpatient visit 25 minutes [facility] Work Phone: [facility] Start: 06-10-2015 Refill Pat edouard TRAILER TECHNICIAN Work Phone: [facility] Comment on above: Medication Refill Start: 06-03-2015 Refill Briana Gan TRAILER TECHNICIAN Work Phone: [facility] Comment on above: Medication Refill Procedures Date Procedure Procedure Detail Performing Clinician Start: 05-04-2025 Urinalysis microscop ic panel - Urine Qualitative by Automated Elicia Love DO Work Phone: Start: 05-04-2025 Urnls dip stick/tabl et reagent auto microscopy Elicia Love DO Work Phone: Start: 05-04-2025 Ct abdomen & pelvis w/contrast material Elicia Love DO Work Phone: Start: 05-04-2025 Comprehensive metabo lic panel Elicia Love DO Work Phone: Start: 04-25-2025 Extracorporeal shock wave lith[address]ripsy [address] Jarad Rey MD Work Phone: Start: 04-10-2025 Plain X-ray abdomen Dr. Jarad Rey MD Work Phone: Start: 04-10-2025 Prostate specific an tigen measurement Dr. Jarad Rey MD Work Phone: Comment on above: This test was perfor med using the [employer] tPSA method. Measured values of a patient sample can vary depending on the testing procedure used. PSA values determined on patient samples by different testing procedures cannot be used interchangeably. If there is a change in PSA assays while monitoring therapy, sequential testing should be performed to confirm baseline values. Start: 04-09-2025 Us abdominal real ti me w/image limited Kaylynn Ashton MD Work Phone: Start: 03-25-2025 Urinalysis microscop ic panel - Urine Qualitative by Automated Zak Alvarez MD Work Phone: Start: 03-25-2025 Urnls dip stick/tabl et reagent auto microscopy Zak Alvarez MD Work Phone: Start: 03-25-2025 Basic metabolic pane l calcium total Zak Alvarez MD Work Phone: Start: 03-25-2025 Ct abdomen & pelvis w/o contrast material Zak Alvarez MD Work Phone: Start: 06-26-2024 Comprehensive metabo lic panel Jarad Rey MD Work Phone: Start: 06-26-2024 Lipid panel Jarad bo MD Work Phone: Start: 02-23-2024 Radiologic exam abdo men 1 view Isabela Bazan MD Work Phone: Start: 12-16-2023 POCT UA AUTOMATED MA NUALLY RESULTED ISABELA BAZAN Start: 12-16-2023 Urnls dip stick/tabl et rgnt auto w/o microscopy Isabela Bazan MD Work Phone: Start: 11-09-2023 Urinalysis microscop ic panel - Urine Qualitative by Automated Karen Fischer PA-C Work Phone: Start: 11-09-2023 Urnls dip stick/tabl et reagent auto microscopy Karen Fischer PA-C Work Phone: Start: 11-08-2023 Bacteria identified in Urine by Culture JARAD REY Start: 10-07-2023 PROSTATE SPECIFIC ANTIGEN JARAD REY Start: 10-07-2023 POCT UA AUTOMATED MA NUALLY RESULTED ISABELA BAZAN Start: 10-07-2023 Urnls dip stick/tabl et rgnt auto w/o microscopy Isabela Bazan MD Work Phone: Start: 08-17-2023 Colonoscopy Jarad bo MD Work Phone: Start: 06-15-2022 Comprehensive metabo lic panel Jarad Rey MD Work Phone: Start: 06-15-2022 Lipid panel Jarad bo MD Work Phone: Start: 04-02-2022 Blood count complete automated Jarad Rey MD Work Phone: Start: 04-02-2022 Radiologic exam ches t 2 views Jarad Rey MD Work Phone: Start: 07-03-2021 Assay of thyroid stimulating hormone tsh Jarad Rey MD Work Phone: Start: 06-12-2021 PSA screening Jarad vegas MD Work Phone: Comment on above: When the Total PSA i s between 3.00 and 10.00 ng/mL, consider requesting a Free PSA to aid in diagnosis. Start: 06-12-2021 Blood count complete automated Jarad Rey MD Work Phone: Start: 06-12-2021 Lipid panel Jarad bo MD Work Phone: Start: 02-27-2021 Myocardial spect mul tiple studies Justin Espinoza MD Work Phone: Start: 02-27-2021 Echo tthrc r-t 2d w/wom-mode compl spec&colr d Justin Espinoza MD Work Phone: Start: 06-10-2020 [object Object] Jarad Rey Comment on above: When the Total PSA i s between 3.00 and 10.00 ng/mL, consider requesting a Free PSA to aid in diagnosis. Start: 06-10-2020 Comprehensive metabo lic panel Jarad Rey Work Phone: Start: 06-10-2020 Lipid panel Jarad bo Work Phone: Start: 06-10-2020 PSA screening Jarad vegas Work Phone: Start: 09-14-2019 Colonoscopy Jaradmirian bo MD Work Phone: Start: 05-15-2019 Comprehensive metabo lic panel Jarad Rey Work Phone: Start: 05-15-2019 Lipid panel Jarad bo Work Phone: Plan of Treatment Date Care Activity Detail Author Start: 09-14-2029 Colon cancer screen colonoscopy Colon cancer screen colonoscopy [facility] Work Phone: Start: 09-14-2029 Screening for malign ant neoplasm of colon [facility] Start: 08-17-2028 [facility]ening for malign [facility] Start: 06-26-2027 Diabetes screen Diabetes screen [facility] Start: 06-11-2026 Diabetes screen Diabetes screen [facility] Start: 01-16-2026 End: 01-16-2026 Patient encounter procedure 01/16/2026 10:30 AM EDT Office Visit [facility] Pulmonology [address] [place] [address] George Hernandez MD [address] [place] [address] 9M FU [facility] Pulmonology Comment on above: 9M FU Start: 07-12-2025 End: 07-12-2025 Patient encounter procedure 07/12/2025 12:30 PM EST Office Visit [facility] Cardiology [address] [place] [address] Justin Espinoza MD [address] [place] [address] 6 month follow up [facility] Cardiology Comment on above: 6 month follow up Start: 06-27-2025 Annual Wellness Visi t (Medicare) Annual Wellness Visit (Medicare) [facility] Start: 06-27-2025 End: 06-27-2025 Patient encounter procedure 06/27/2025 1:00 PM EDT Office Visit [facility] [address] [place] [address] Jarad Rey MD [address] [place] [address] awv [facility] Comment on above: awv Start: 06-26-2025 Lipid panel [facility] Start: 06-25-2025 Depression Screen Depression Screen [facility] Start: 04-30-2025 COVID-19 Vaccine ( season) COVID-19 Vaccine ( season) [facility] Start: 04-30-2025 Influenza vaccination Influenza Vacc ine (#1) [facility] Start: 04-26-2025 End: 04-26-2025 Patient encounter procedure 04/26/2025 10:30 AM EDT Office Visit [facility] General Surgery [address] [place] [address] Kaylynn Ashton MD [address] [facility] [place] [id number] 1 yr [facility] General Surgery Comment on above: 1 yr [facility] Start: 04-25-2025 Ambulation without limitation [facility] Start: 04-25-2025 Medical regimen orde rs management [facility] Start: 04-25-2025 Medication education [facility] Start: 04-25-2025 Patient discharge [facility] Start: 04-25-2025 Taking patient vital signs [facility] Start: 04-25-2025 [facility] Start: 04-25-2025 Plain X-ray abdomen Abdomen Single V iew [facility] Start: 04-25-2025 XR Abdomen Single view [facility] Start: 03-30-2025 Influenza vaccination Flu vaccine (# 1) [facility] Start: 10-07-2024 Prostate specific antigen measurement PSA Prostate Cancer Screening [facility] Start: 09-20-2024 End: 09-20-2024 Patient encounter procedure 09/20/2024 10:45 AM EST Office Visit [facility] [address] [facility] [address] [place] [id number] Isabela Bazan MD [address] [place] [address] [facility] Start: 09-13-2024 End: 09-13-2025 Basic metabolic 2000 panel - Serum or Plasma Basic Metabolic Panel Lab Routine Nocturia Expected: 09/13/2024 (Approximate), Expires: 09/13/2025 [facility] Work Phone: Comment on above: Expected: 09/13/2024 (Approximate), Expires: 09/13/2025 Start: 09-13-2024 End: 09-13-2025 Prostate specific Ag [Mass/volume] in Serum or Plasma Prostate Specific Antigen Lab Routine Nocturia Expected: 09/13/2024 (Approximate), Expires: 09/13/2025 [facility] Work Phone: Comment on above: Expected: 09/13/2024 (Approximate), Expires: 09/13/2025 Start: 09-13-2024 End: 09-13-2025 US Kidney - bilateral and Urinary bladder US renal complete Imaging Routine History of kidney stones Expected: 09/13/2024 (Approximate), Expires: 09/13/2025 [facility] Work Phone: Comment on above: Expected: 09/13/2024 (Approximate), Expires: 09/13/2025 Start: 07-30-2024 End: 02-22-2025 XR Abdomen Single view XR abdomen 1 view Imaging Routine History of kidney stones Expected: 07/30/2024, Expires: 02/22/2025 [facility] Work Phone: Comment on above: Expected: 07/30/2024 , Expires: 02/22/2025 Start: 07-05-2024 End: 07-05-2024 Patient encounter procedure 07/05/2024 10:00 AM EST Office Visit [facility] Pulmonology [address] [place] [address] George Hernandez MD [address] [place] [address] 9M F/U [facility] Pulmonology Comment on above: 9M F/U Start: 06-29-2024 End: 06-29-2024 Patient encounter procedure 06/29/2024 9:45 AM EDT Office Visit [facility] Cardiology [address] [place] [address] Justin Espinoza MD [address] [facility] [place] [address] 6 month follow up [facility] Cardiology Comment on above: 6 month follow up Start: 06-12-2024 Diabetes screen Diabetes screen [facility] Start: 06-12-2024 End: 06-12-2024 Patient encounter procedure 06/12/2024 10:15 AM EDT Office Visit [facility] [address] [place] [address] Isabela Bazan MD [address] [place] [address] [facility] Start: 06-11-2024 [facility] Start: 05-15-2024 End: 05-15-2024 Patient encounter procedure 05/15/2024 10:00 AM EDT Office Visit [facility] [address] [place] [address] Isabela Bazan MD [address] [place] [address] [facility] Start: 04-30-2024 COVID-19 Vaccine ( season) COVID-19 Vaccine ( season) [facility] Start: 04-30-2024 COVID-19 Vaccine ( season) COVID-19 Vaccine ( season) [facility] Start: 04-30-[address] [facility] Start: 03-30-2024 Influenza vaccination Flu vaccine (# 1) [facility] Start: 02-23-2024 End: 02-23-2024 Patient encounter procedure 02/23/2024 10:45 AM EDT Office Visit [address] [place] [address] Isabela Bazan MD [facility] [place] [address] [facility] Start: 12-16-2023 End: 12-16-2023 Patient encounter procedure 12/16/2023 3:30 PM EDT Office Visit [facility] [address] [place] [address] Isabela Bazan MD [facility] [place] [address] [facility] Start: 11-15-2023 End: 11-15-2023 Patient encounter procedure 11/15/2023 3:00 PM EDT Office Visit [facility] [address] [place] [address] Isabela Bazan MD [facility] [place] [address] [facility] Start: 11-10-2023 End: 11-10-2023 Telemedicine consultation with patient 11/10/2023 10:45 AM EDT Telemedicine [address] [place] [id number] Isabela Bazan MD [address] [place] [address] [facility] Start: 11-08-2023 End: 11-15-2023 Bacteria identified in Urine by Culture Urine Culture Microbiology Routine Dysuria Expected: 11/08/2023 (Approximate), Expires: 11/15/2023 [facility] Work Phone: Comment on above: Expected: 11/08/2023 (Approximate), Expires: 11/15/2023 Start: 11-01-2023 End: 11-01-2023 Patient encounter procedure 11/01/2023 10:00 AM EST Procedure Visit [facility] [address] [place] [address] [facility] Start: 10-07-2023 End: 10-07-2024 Prostate specific Ag [Mass/volume] in Serum or Plasma [facility] Work Phone: Comment on above: Expected: 10/07/2023 (Approximate), Expires: 10/07/2024 Start: 10-07-2023 End: 10-07-2024 XR Abdomen Single view [facility] Work Phone: Comment on above: Expected: 10/07/2023 (Approximate), Expires: 10/07/2024 Once for 1 Occurrenc es starting 10/07/2023 until 10/07/2023 Start: 06-10-2023 Diabetes screen Diabetes screen [facility] Work Phone: Start: 05-09-2023 Lipid screen Lipid screen [facility] [place], [place] Start: 04-30-2023 COVID-19 Vaccine ( season) COVID-19 Vaccine ( season) [facility] Start: 04-30-2023 Influenza vaccination Influenza Vacc ine (#1) [facility] Start: 04-02-2023 Depression Screen Depression Screen [facility] Start: 07-08-2022 End: 07-08-2022 Patient encounter procedure 07/08/2022 Office Visit Pulmonology George Hernandez MD [address] [facility] [address] [place] [address] [facility] Start: 06-30-2022 End: 06-30-2022 Patient encounter procedure 06/30/2022 Office Visit Cardiology Justin Espinoza MD [address] [facility] [address] [place] [address] [facility] Cardiology Start: 06-24-2022 [facility]inine [facility] [employer] Work Phone: Start: 06-24-2022 Potassium monitoring Potassium monit ori [employer] Work Phone: Start: 06-15-2022 Annual Wellness Visi t (AWV) Annual Wellness Visit (AWV) [facility] [employer] Start: 06-15-2022 End: 06-15-2022 Patient encounter procedure [facility] [employer] [facility] Start: 06-12-2022 Lipid panel [facility] [employer] Start: 06-12-2022 Prostate specific antigen measurement Prostate Specific Antigen (PSA) Screening or Monitoring [facility] [employer] Start: 06-11-2022 End: 06-11-2022 Patient encounter procedure 06/11/2022 Office Visit Cardiology Justin Espinoza MD [address] [facility] [address] [place] [address] [facility] Cardiology Start: 04-30-2022 Influenza vaccination [employer] Start: 04-20-2022 End: 04-20-2022 Patient encounter procedure 04/20/2022 Appointment Pulmonary Function Testing [facility] Start: 03-30-2022 Influenza vaccination Flu vaccine (# 1) [facility] [employer] Start: 2021 Fall risk assessment Falls Risk [facility] Start: 2021 Pneumococcal 65+ yea rs Vaccine (1 - PCV) Pneumococcal 65+ years Vaccine (1 - PCV) [facility] [employer] Start: 2021 Pneumococcal Vaccine : 65+ Years (1 - PCV) Pneumococcal Vaccine: 65+ Years (1 - PCV) [facility] Start: 2021 Pneumococcal Vaccine : 65+ Years (1 of 1 - PCV) Pneumococcal Vaccine: 65+ Years (1 of 1 - PCV) [facility] Start: 2021 Pneumococcal Vaccine : Age 65+ (1 - PCV) Pneumococcal Vaccine: Age 65+ (1 - PCV) [facility] Start: 10-16-2021 End: 10-16-2021 Patient encounter procedure 10/16/2021 Office Visit Cardiology Justin Espinoza MD [address] [facility] [address] [place] [address] [phone] [facility] Cardiology Start: 07-10-2021 End: 07-10-2021 Patient encounter procedure 07/10/2021 Appointment Radiology [facility] Ultrasound Start: 07-07-2021 End: 07-07-2021 Patient encounter procedure 07/07/2021 Office Visit Cardiology Jsutin Espinoza MD [address] [place] [address] [phone] [facility] Cardiology Start: 06-10-2021 Creatinine measurement Creatinine mo nitoring [facility] [employer] Phone: Start: 06-10-2021 Lipid panel Lipid screen [facility] [place] Phone: Start: 06-10-2021 Potassium monitoring Potassium monit oring [facility] [place] Phone: Start: 04-30-2021 Influenza vaccination [facility] [employer] Phone: Start: 03-06-2021 End: 03-06-2021 Patient encounter procedure 03/06/2021 Office Visit Cardiology Justin Espinoza MD [address] [place] [address] [phone] [facility] Cardiology Start: 02-27-2021 End: 02-27-2021 Patient encounter procedure [facility] [place] [facility] Start: 05-15-2020 Creatinine measurement Creatinine mo nitoring [place], [place] Start: 05-15-2020 Creatinine monitoring Creatinine mon [facility] Work Phone: Start: 05-15-2020 Lipid panel Lipid screen [place], [place] Start: 05-15-2020 Lipid screen Lipid screen [facility] Work Phone: Start: 05-15-2020 Potassium monitoring Potassium monit [facility] Work Phone: Start: 04-30-2020 Influenza vaccination Flu vaccine (# 1) [place], [place] Start: 06-07-2019 End: 06-07-2019 Office Visit 06/07/2019 Office Visit Cardiology Brain Freedman MD [address] [facility] [address] [place] [address] [phone] [facility] Cardiology Start: 05-15-2019 End: 05-15-2019 Office Visit 05/15/2019 Office Visit Family Medicine Jarad Rey MD [address] [place], [place] [id number] [facility] Start: 05-09-2019 Creatinine monitoring Creatinine mon [place], [place] Start: 05-09-2019 Potassium monitoring Potassium monit [place] Start: 04-30-2019 Influenza vaccination Flu vaccine (# 1) [place] Start: 04-30-2017 Influenza vaccination SEQUENTI AL INFLUENZA VACCINE (#1) [facility] Work Phone: Start: 2016 Hepatitis B Vaccines (1 of 3 - Risk 3-dose series) Hepatitis B Vaccines (1 of 3 - Risk 3-dose series) [facility] Start: 2016 Respiratory Syncytia l Virus (RSV) or age 60 yrs+ (1 - 1-dose 60+ series) Respiratory Syncytial Virus (RSV) or age 60 yrs+ (1 - 1-dose 60+ series) [facility] Start: 2016 Respiratory Syncytia l Virus (RSV) or age 60 yrs+ (1 - Risk 60-74 years 1-dose series) Respiratory Syncytial Virus (RSV) or age 60 yrs+ (1 - Risk 60-74 years 1-dose series) [facility] Start: 2016 RSV High Risk: (Elde rly (60+) or Population) (1 - Risk 60-74 years 1-dose series) RSV High Risk: (Elderly (60+) or Population) (1 - Risk 60-74 years 1-dose series) [facility] Start: 2016 RSV patient s and/or patients aged 60+ years (1 - 1-dose 60+ series) RSV patients and/or patients aged 60+ years (1 - 1-dose 60+ series) [facility] Start: 2016 Zoster vaccine hzv l sangita for subcutaneous use ZOSTER VACCINE [facility] Work Phone: Start: 2006 Administration of he rpes zoster vaccine Zoster Vaccines (1 of 2) [facility] Start: 2006 Colon cancer screen colonoscopy Colon cancer screen colonoscopy [place], [place] Start: 2006 Pneumococcal vaccination Pneum ococcal Vaccine (1 of 1 - PCV) [facility] Start: 2006 Shingles Vaccine (1 of 2) Shingles Vaccine (1 of 2) [facility] Start: 2006 Zoster Vaccines (1 of 2) Zoste r Vaccines (1 of 2) [facility] Start: 2001 Screening for malign ant neoplasm of colon [facility] Start: 1978 DTaP/Tdap/Td Vaccine s (1 - Tdap) DTaP/Tdap/Td Vaccines (1 - Tdap) [facility] Start: 12-03-1975 DTaP/Tdap/Td vaccine (1 - Tdap) DTaP/Tdap/Td vaccine (1 - Tdap) [facility] Start: 12-03-1975 Hepatitis A Vaccines (1 of 2 - Risk 2-dose series) Hepatitis A Vaccines (1 of 2 - Risk 2-dose series) [facility] Start: 12-03-1975 Pneumococcal 50+ yea rs Vaccine (1 of 2 - PCV) Pneumococcal 50+ years Vaccine (1 of 2 - PCV) [facility] [employer] Start: 1974 Diabetes mellitus screening Diabetes Screening [facility] Start: 1974 Hepatitis C screening Hepatitis C [facility] Start: 12-03-1971 HIV screening HIV Screening [facility] Start: 1968 COVID-19 Vaccine (1) COVID-19 Vaccin e (1) [facility] Start: 1968 Depression screening using PHQ-9 (Patient Health Questionnaire 9) score Depression Screening (PHQ-2/9) [facility] Start: 12-03-1967 DTaP/Tdap/Td vaccine (1 - Tdap) DTaP/Tdap/Td vaccine (1 - Tdap) [facility] Phone: Start: 1962 Pneumococcal 65+ yea rs Vaccine (1 - PCV) Pneumococcal 65+ years Vaccine (1 - PCV) [facility] Start: 1962 Pneumococcal 65+ yea rs Vaccine (1 of 2 - PCV) Pneumococcal 65+ years Vaccine (1 of 2 - PCV) [facility] Start: 12-03-1959 History and physical examination, annual for health maintenance Wellness Visit [facility] Start: 1957 MMR Vaccines (1 of 1 - Standard series) MMR Vaccines (1 of 1 - Standard series) [facility] Start: 06-03-1957 COVID-19 Vaccine (#1) COVID-19 Vacci ne (#1) [facility] Start: 1956 Lipid panel Lipid Panel [facility] Start: 1956 Medicare Annual Well ness Visit Medicare Annual Wellness Visit (AWV) [facility] Start: 1956 Prostate specific antigen measurement PSA Level [facility] Start: 1956 Screening for malign ant neoplasm of colon [facility] Start: 1956 Yearly Adult Physical Yearly Adult P hysical [facility] Start: 1956 HEPATITIS C SCREENING [facility]PATITIS C [facility] Work Phone: Start: 04-05-1957 Screening colonoscopy [facility]COPY [facility] Work Phone: Start: 1956 End: 1956 Tetanus vaccination [facility] End: 11-09-2023 Bacteria identified in Urine by Culture [facility] Work Phone: Comment on above: Once (Lab) for 1 Occ urrences starting 11/09/2023 until 11/09/2023 End: 03-25-2025 Bacteria identified in Urine by Culture [facility] Work Phone: Comment on above: Once (Lab) for 1 Occ urrences starting 03/25/2025 until 03/25/2025 End: 05-04-2025 Bacteria identified in Urine by Culture [facility] Work Phone: Comment on above: Once (Lab) for 1 Occ urrences starting 05/04/2025 until 05/04/2025 End: 11-09-2023 Extra Urine [employer] Extra Urine [facility] [employer] Lab Timed Once for 1 Occurrences starting 11/09/2023 until 11/09/2023 [facility] Work Phone: Comment on above: Once for 1 Occurrenc es starting 11/09/2023 until 11/09/2023 End: 03-25-2025 Extra Urine [employer] Extra Urine [employer] Lab Timed Once for 1 Occurrences starting 03/25/2025 until 03/25/2025 [facility] Work Phone: Comment on above: Once for 1 Occurrenc es starting 03/25/2025 until 03/25/2025 End: 05-04-2025 Extra Urine [employer] Extra Urine [employer] Lab Timed Once for 1 Occurrences starting 05/04/2025 until 05/04/2025 [facility] Work Phone: Comment on above: Once for 1 Occurrenc es starting 05/04/2025 until 05/04/2025 End: 06-26-2024 Hemoglobin A1c/Hemoglobin.total in Blood [facility] Comment on above: 1 Occurrences starti ng 06/26/2024 until 06/26/2024 End: 05-08-2019 Holter monitor 24 hour Holter monitor 24 hour Cardiac Services Routine PVC (premature ventricular contraction) 1 Occurrences starting 05/08/2019 until 05/08/2019 [facility] [place] [place] Comment on above: 1 Occurrences starti ng 05/08/2019 until 05/08/2019 Initiate Oxygen Ther apy Protocol Initiate Oxygen Therapy Protocol Respiratory Care Routine Daily until discontinued starting 09/14/2019 [employer] Work Phone: Comment on above: Daily until disconti nued starting 09/14/2019 Phase I & II - meter ed glucose Phase I & II - metered glucose Point of Care Testing Routine As Needed until discontinued starting 09/14/2019 [employer] Work Phone: Comment on above: As Needed until disc ontinued starting 09/14/2019 End: 11-09-2023 Urinalysis complete W Reflex Culture panel - Urine [facility] Work Phone: Comment on above: STAT (Lab) for 1 Occ urrences starting 11/09/2023 until 11/09/2023 End: 03-25-2025 Urinalysis complete W Reflex Culture panel - Urine [facility] Work Phone: Comment on above: Once (Lab) for 1 Occ urrences starting 03/25/2025 until 03/25/2025 End: 05-04-2025 Urinalysis complete W Reflex Culture panel - Urine [facility] Work Phone: Comment on above: STAT (Lab) for 1 Occ urrences starting 05/04/2025 until 05/04/2025 End: 09-13-2024 XR Abdomen Single view [facility] Work Phone: Comment on above: Once for 1 Occurrenc es starting 09/13/2024 until 09/13/2024 End: 02-17-2021 XR HAND RIGHT (MIN 3 VIEWS) XR HAND RIGHT (MIN 3 VIEWS) Imaging STAT Once for 1 Occurrences starting 02/17/2021 until 02/17/2021 [employer] Work Phone: Comment on above: Once for 1 Occurrenc es starting 02/17/2021 until 02/17/2021 XR HAND RIGHT (MIN 3 VIEWS) XR HAND RIGHT (MIN 3 VIEWS) Imaging STAT 02/17/2021 9:12 PM EDT [employer] Phone: Payers Date Payer Category Payer Self-pay 2021 Blue Cross Blue Shijemma ld Managed Care [facility] [id number] 2021 Medicare [id number]. [id number] 2021 Medicare [id number] [id number]. [id number] 2021 Unknown [id number] [id number]. [id number] 2017 Unknown [employer] M [employer] JHONY - EXCHANGE xxxxxxxxxxxx 2017-Present [phone] [address] [place] [address] xxxxxxxxxxxx [id number]. [id number] 2017 Unknown 2015 Unknown [id number] 2.16.840.1.665112.3.249.13 1956 Unknown [id number] 2.16.840.1.230894.3.579.2. 903 1956 Unknown [id number] 2.16.840.1.760332.3.579.2. 182 1956 Unknown [id number] 2.16.840.1.928520.3.579.2. 1244 1956 Unknown [id number] 2.16.840.1.420543.3.579.2. 1244 1956 Unknown [id number] 2.16.840.1.955316.3.579.2. 1243 1956 Unknown [id number] 2.16.840.1.843235.3.579.2. 1243 1956 Unknown [id number] 2.16.840.1.663927.3.579.2. 1243 1956 Unknown [id number] 2..840.1.742563.3.579.2. 1243 1956 Unknown [id number] 2.840.1.141023.3.579.2. 1243 1956 Unknown [id number] 2.16.840.1.705581.3.579.2. 1243 1956 Unknown [id number] 2..840.1.335116.3.579.2. 1243 1956 Unknown [id number] 2..840.1.259952.3.579.2. 1243 1956 Unknown [id number] 2..840.1.986873.3.579.2. 1242 1956 Unknown [id number] 2.16.840.1.116515.3.579.2. 1242 1956 Unknown [id number] 2.16.840.1.488384.3.579.2. 185 1956 Unknown [id number] 2.16.840.1.121977.3.579.2. 185 Unknown [id number] 2.16.840.1.071398.3.579.2. 462 Unknown [id number] 2.16.840.1.045975.3.579.2. 462 Social History Date Type Detail Facility Start: 05-19-2017 End: 10-07-2023 Tobacco smoking status NHIS Never smoker Attributor Start: 1955 Sex Assigned At Not on file [facility] Work Phone: Start: 10-12-2018 End: 05-04-2025 Alcohol intake No [employer] Start: 06-10-2020 End: 10-07-2023 Tobacco use and exposure Never used [employer] Start: 06-10-2020 End: 06-15-2022 Alcohol intake Current non-drinker of alcohol (finding) [employer] Work Phone: Start: 09-27-2023 End: 09-13-2024 Exposure to SARS-CoV-2 (event) Not sure [employer] Start: 06-12-2021 End: 06-15-2022 History SDOH Financial 5 [employer] Work Phone: Start: 06-12-2021 End: 06-15-2022 History SDOH Food Worry 1 [employer] Work Phone: Tobacco smoking stat [facility] Tobacco smoking consumption unknown [facility] Start: 10-07-2023 End: 05-04-2025 Alcohol intake Lifetime non-drinker (finding) [facility] Work Phone: Start: 10-07-2023 End: 05-04-2025 History of Social function [employer] How often to you hav e a drink containing alcohol? Never [employer] Start: 07-24-2022 Average Number of Drinks Not on file [employer] (I/We) worried wheth er (my/our) food would run out before (I/we) got money to buy more. Never true [employer] At any time in the p ast 12 months, were you homeless or living in snf [including now]? No [employer] Start: 1955 Sex assigned at Male [facility] Start: 03-25-2025 Gender identity Identifies as male gender (finding) [facility] Work Phone: Start: 03-25-2025 Sexual orientation Heterosexual (finding) [facility] Work Phone: Start: 10-09-2012 Sex Male (finding) [facility] Goals Date Patient Goal Desired Activity /State Functional Status Date Assessment Result Facility 05-04-2025 [place] - suicide s everity rating scale screener - recent [C-SSRS] [facility] Work Phone: 04-25-2025 Functional status [facility] Work Phone: 03-25-2025 [place] - suicide s everity rating scale screener - recent [C-SSRS] [facility] Work Phone: Mental Status Date Assessment Result Facility 04-25-2025 Cognitive function Level Of Consciousness Sedated [facility] Work Phone: 04-25-2025 Cognitive function Voice/Name [facility] Work Phone: Clinical Notes 06-03-2015 to 05-05-2025 Kartik Pa, DO - 05/05/2025 12:03 AM EDTMjona Pa, DO - 05/05/2025 12:03 AM EDT Note Date & Type Note Facility 05-05-2025 Physician Emergency department Note Emergency Medicine Transition of Care Note. I received Ramon Costa in signout from Dr. Love. Please see the previous ED provider note for all HPI, PE and MDM up to the time of signout at [phone]. This is in addition to the primary record. Go over the results with the patient including CAT scan results. I will reach out to his urologist at [facility]. Patient has been accepted to [facility] by Dr. Lam. He will be given another 4 mg of morphine for pain. In brief Ramon Costa is an 69 y.o. male presenting for Chief Complaint Patient presents with Vomiting Constipation Since recent kidney stone procedure (04/25) patient has been vomiting and having constipation. Unable to hold down fluids, home enema did not help. At the time of signout we were awaiting: CT scan Diagnoses as of 05/05/25 0154 Ureteral calculus Labs Reviewed COMPREHENSIVE METABOLIC PANEL - Abnormal Result Value Glucose 138 (*) Sodium 136 Potassium 3.9 Chloride 103 Bicarbonate 25 Anion Gap 12 Urea Nitrogen 14 Creatinine 1.60 (*) eGFR 47 (*) Calcium 9.3 Albumin 4.0 Alkaline Phosphatase 138 (*) Total Protein 6.4 AST 15 Bilirubin, Total 1.6 (*) ALT 15 CBC WITH AUTO DIFFERENTIAL - Abnormal WBC 11.5 (*) nRBC 0.0 RBC 4.72 Hemoglobin 14.8 Hematocrit 43.6 MCV 92 MCH 31.4 MCHC 33.9 RDW 13.1 Platelets 190 Neutrophils % 81.1 Immature Granulocytes %, Automated 0.3 Lymphocytes % 10.9 Monocytes % 7.1 Eosinophils % 0.3 Basophils % 0.3 Neutrophils Absolute 9.34 (*) Immature Granulocytes Absolute, Automated 0.04 Lymphocytes Absolute 1.25 Monocytes Absolute 0.82 Eosinophils Absolute 0.04 Basophils Absolute 0.03 URINALYSIS WITH REFLEX CULTURE - Abnormal Color, Urine Dark-Yellow Appearance, Urine Clear Specific [place], Urine 1.015 pH, Urine 6.5 Protein, Urine NEGATIVE Glucose, Urine Normal Blood, Urine NEGATIVE Ketones, Urine NEGATIVE Bilirubin, Urine NEGATIVE Urobilinogen, Urine Normal Nitrite, Urine 1+ (*) Leukocyte Esterase, Urine NEGATIVE LACTATE - Normal Lactate 1.5 Narrative: Venipuncture immediately after or during the administration of Metamizole may lead to falsely low results. Testing should be performed immediately prior to Metamizole dosing. LIPASE - Normal Lipase 12 Narrative: Venipuncture immediately after or during the administration of Metamizole may lead to falsely low results. Testing should be performed immediately prior to Metamizole dosing. MICROSCOPIC ONLY, URINE - Normal WBC, Urine 1-5 RBC, Urine NONE URINE CULTURE URINALYSIS WITH REFLEX CULTURE Narrative: The following orders were created for panel order Urinalysis with Reflex Culture. Procedure Abnormality Status --------- ------ Urinalysis with Reflex C...[[id number]] Abnormal Final result Extra Urine [employer][[id number]] Please view results for these tests on the individual orders. EXTRA URINE JOHNSON TUBE CT abdomen pelvis w IV contrast Final Result 1. Moderate right hydronephrosis secondary to obstructing elongated or clustered calculi within the right proximal ureter measuring 2 cm in length. There are numerous additional right distal ureteral calculi extending to the vesicoureteral junction. 2. Additional nonobstructing bilateral renal calculi measuring up to 0.6 cm. 3. Mild distal esophageal wall thickening. Small hiatal hernia. Please correlate for esophagitis. 4. Cholelithiasis. 5. Prostatomegaly. 6. Colonic diverticulosis without evidence of diverticulitis. Signed by: Andrew Sosa 05/04/2025 11:53 PM Dictation workstation: [id number] Medical Decision Making Transfer to [facility] Final diagnoses: [N20.1] Ureteral calculus Procedure Procedures DO Kartik Mendez DO 05/05/25153 [facility] Work Phone: 05-05-2025 Emergency department Note Emergency Medicine Transition of Care Note. I received Ramon Costa in signout from Dr. Love. Please see the previous ED provider note for all HPI, PE and MDM up to the time of signout at 3515. This is in addition to the primary record. Go over the results with the patient including CAT scan results. I will reach out to his urologist at [facility]. Patient has been accepted to [facility] by Dr. Lam. He will be given another 4 mg of morphine for pain. In brief Ramon Costa is an 69 y.o. male presenting for Chief Complaint Patient presents with Vomiting Constipation Since recent kidney stone procedure (04/25) patient has been vomiting and having constipation. Unable to hold down fluids, home enema did not help. At the time of signout we were awaiting: CT scan Diagnoses as of 05/05/25153 Ureteral calculus Labs Reviewed COMPREHENSIVE METABOLIC PANEL - Abnormal Result Value Glucose 138 (*) Sodium 136 Potassium 3.9 Chloride 103 Bicarbonate 25 Anion Gap 12 Urea Nitrogen 14 Creatinine 1.60 (*) eGFR 47 (*) Calcium 9.3 Albumin 4.0 Alkaline Phosphatase 138 (*) Total Protein 6.4 AST 15 Bilirubin, Total 1.6 (*) ALT 15 CBC WITH AUTO DIFFERENTIAL - Abnormal WBC 11.5 (*) nRBC 0.0 RBC 4.72 Hemoglobin 14.8 Hematocrit 43.6 MCV 92 MCH 31.4 MCHC 33.9 RDW 13.1 Platelets 190 Neutrophils % 81.1 Immature Granulocytes %, Automated 0.3 Lymphocytes % 10.9 Monocytes % 7.1 Eosinophils % 0.3 Basophils % 0.3 Neutrophils Absolute 9.34 (*) Immature Granulocytes Absolute, Automated 0.04 Lymphocytes Absolute 1.25 Monocytes Absolute 0.82 Eosinophils Absolute 0.04 Basophils Absolute 0.03 URINALYSIS WITH REFLEX CULTURE - Abnormal Color, Urine Dark-Yellow Appearance, Urine Clear Specific [place], Urine 1.015 pH, Urine 6.5 Protein, Urine NEGATIVE Glucose, Urine Normal Blood, Urine NEGATIVE Ketones, Urine NEGATIVE Bilirubin, Urine NEGATIVE Urobilinogen, Urine Normal Nitrite, Urine 1+ (*) Leukocyte Esterase, Urine NEGATIVE LACTATE - Normal Lactate 1.5 Narrative: Venipuncture immediately after or during the administration of Metamizole may lead to falsely low results. Testing should be performed immediately prior to Metamizole dosing. LIPASE - Normal Lipase 12 Narrative: Venipuncture immediately after or during the administration of Metamizole may lead to falsely low results. Testing should be performed immediately prior to Metamizole dosing. MICROSCOPIC ONLY, URINE - Normal WBC, Urine 1-5 RBC, Urine NONE URINE CULTURE URINALYSIS WITH REFLEX CULTURE Narrative: The following orders were created for panel order Urinalysis with Reflex Culture. Procedure Abnormality Status --------- ------ Urinalysis with Reflex C...[[id number]] Abnormal Final result Extra Urine Johnson Tube[[id number]] Please view results for these tests on the individual orders. EXTRA URINE JOHNSON TUBE CT abdomen pelvis w IV contrast Final Result 1. Moderate right hydronephrosis secondary to obstructing elongated or clustered calculi within the right proximal ureter measuring 2 cm in length. There are numerous additional right distal ureteral calculi extending to the vesicoureteral junction. 2. Additional nonobstructing bilateral renal calculi measuring up to 0.6 cm. 3. Mild distal esophageal wall thickening. Small hiatal hernia. Please correlate for esophagitis. 4. Cholelithiasis. 5. Prostatomegaly. 6. Colonic diverticulosis without evidence of diverticulitis. Signed by: Andrew Sosa 05/04/2025 11:53 PM Dictation workstation: [id number] Medical Decision Making Transfer to [place] Final diagnoses: [N20.1] Ureteral calculus Procedure Procedures DO Kartik Mendez DO 05/05/25 0154 documented in this encounter [facility] Work Phone: 04-25-2025 Discharge summary Note Date/Time April 25, 2025 3:47pm [facility] Medical Records Department [address] [place] [address] Instructions for Home/Discharge Instructions 04/25/25 1547 MR#: [id number] Acct: [id number] Name: RAMON COSTA Rep #:[id number] : 1955 69 From: Harjit Lam MD PCP: Jarad Rey MD Status:REG SDC Discharge Instructions DC O2, CPAP, BIPAP needs Home O2 Discharge instructions: No Dressing / Incision Discharge Activity: Return to Normal Activity and May Not Drive (while taking narcotic pain medications.) Dressing / Incision Call your doctor if you observe: Fever of 101 or Higher and Uncontrolled pain Follow Up Care Please Follow Up With: Harjit Lam MD When: Call [phone] for an appointment Test Results: Test results from this visit will be discussed in further detail at your follow-up appointment, if applicable. Discharge Plan Admission Primary Reason for Your Visit: ESWL Attending Provider: Harjit Lam Primary Care Provider: Jarad Rey Instructions Print Language: [place] Discharge Orders/Prescriptions Prescriptions: New ciprofloxacin HCl [Cipro] 500 mg tablet 500 mg PO BID Qty: 10 0RF tamsulosin [Flomax] 0.4 mg capsule 0.4 mg PO DAILY Qty: 14 0RF phenazopyridine [Pyridium] 100 mg tablet 100 mg PO TID Qty: 20 0RF oxycodone 5 mg tablet 5 mg PO Q6H PRN (Reason: pain) 3 Days Qty: 14 0RF Continued atorvastatin 40 mg tablet 40 mg PO QHS pantoprazole 40 mg tablet,delayed release (DR/EC) 40 mg PO DAILY ropinirole 1 mg tablet 1 mg PO QHS losartan 25 mg tablet 25 mg PO DAILY allopurinol 300 mg tablet 300 mg PO DAILY niacinamide 500 mg tablet 500 mg PO DAILY cyanocobalamin (vitamin B-12) 1,000 mcg capsule 1,000 mcg PO DAILY ascorbic acid (vitamin C) [C-500] 500 mg tablet 1 g PO DAILY cholecalciferol (vitamin D3) [Vitamin D3] 125 mcg (5,000 unit) tablet 125 mcg PO DAILY Held clopidogrel 75 mg tablet 75 mg PO DAILY Hold Instructions: Resume on 05/02/25. Referrals / Follow Up: Jarad Rey MD [Primary Care Provider] - Harjit Lam MD [Med Staff - Active Staff] - Disposition Disposition (needs filled in before D/C Order can be placed): Home, Self Care 04/25/25 1547<Electronically signed by Harjit Lam MD>Harjit Lam MD CC: Jarad Rey MD ~ Signed ADDENDUM by Dr. Harjit Lam MD on 04/25/25 at 1547 Next week with an KUB prior to appt. with me. 04/25/25 1547<Electronically signed by Harjit Lam MD>Harjit Lam MD cc: Jarad Rey MD ~* Signed [facility] Work Phone: 1(791) 977-946208-27-2025 Consult note [facility] Medical Records Department [address] [place] [address] Anesthesia Postop Eval I 04/25/25 1647 MR#: [id number] Acct: [id number] Name: RAMON COSTA Rep #:[id number] : 1955 69 From: Gonzalo Saucedo CRNA PCP: Jarad Rey MD Status:REG SDC Y Race: C Location: [place] [address] Anesthesia: Postop Eval I Current Vital Signs Temperature: 96.6 F Pulse Rate: 65 Blood Pressure: 159/77 Respiratory Rate: 20 Pulse Ox: 99 Oxygen Delivery Method: Room Air Assessment Airway patent: Yes Spontaneous unlabored respirations: Yes Mental status: Awake nausea: No Vomiting: No Anesthesia Complication: No Fluid Hydration Crystalloid volume administer (ml): 900 Total IV fluid infused: 900 Progress Note Anesthesia document: Postop Eval 1 completed: Yes 04/25/25 1648 y TOBACCO SORTER> Date _ Gonzalo Saucedo TOBACCO SORTER Cosigner Signature: Date CC: ~ Signed [facility]08-27-2025 Procedure note [facility] Medical Records Department [address] [place] [address] Operative Report 04/25/25 1620 MR#: [id number] Acct: [id number] Name: RAMON COSTA Rep #:[id number] : 1955 69 From: Harjit Lam MD PCP: Jarad Rey MD Status:[facility] Location: [place] [address] Operative Report (Standard) Operative Information Date of Procedure: 04/25/25 Pre-Operative Diagnosis: Right kidney stones Post-Operative Diagnosis: same Surgery/Procedure Performed: Cystoscopy right stent placement and right ESWL workforce management consultant: No Type of Anesthesia: General RN Documented Start/Stop Times: Operation Date: 04/25/25 13:00 Case Time Into Pre-Op 04/25/25 11:12 Out of Pre-Op 04/25/25 15:38 Anesthesia Start 04/25/25 15:42 Into Room 04/25/25 15:42 Procedure Start 04/25/25 15:56 Procedure Start Time: 15:56 Procedure Stop Time: 16:36 Select all DRAINS/GRAFTS/IMPLANTS that apply: Drains Drain details: right stent Estimated Blood Loss: 0 Specimen collected: No Description of surgery: Patient presents to the hospital for treatment of a kidney stone with shockwave lithotripsy. In thepreoperative area and x-ray was done to confirm the location of the stone. The x-ray was reviewed and the stone location was reviewed. In the preoperative setting I spoke with the patient regarding the treatment of the stone how the treatment would be conducted and the expectationsafter surgery. The patient understands there is a risk of bleeding and infection. Also discussed the very rare risk of hematoma or damage to the kidney. We also discussed the risk that the shockwave machine will fail to break the stone adequately and that the patient may need other surgical procedures. I also discussed the possibility that the patient may need a stent after the procedure. After reviewing the procedure with the patient, the patient is signed the consent form all the patient's questions were addressed and was taken back to the operating room for treatment of a kidney stone. Patient was taken back to the operating room, the patient was identified by the nursing staff, I identified the side of the treatment and the patient side of treatment had been marked by my initials.The urethra and genitals were prepped and draped in usual sterile fashion. Using a 21 Belgian rigid cystourethroscope the entire length of the urethra was normal then went into the bladder. Identifiedthe trigone the left and right ureteral orifice. I then cannulated the right ureteral orifice and advanced a wire up into the kidney. I then backloaded a 5 Belgian open ended catheter over the wire and injected contrast todelineate the anatomy. After the retrograde was performed I then used fluoroscopic images and guidance to advanced a wire up into the kidney and over the 0.038 glidewire I advanced a 6 Belgian by 26 cm double pigtail stent. I thenpulled the 0.038 Glidewire off and the stent coiled in the kidney bladder good position. The bladder was then drained. We confirmed the position of the stentby fluoroscopy. The patient underwent general anesthetic and was placed supine on the lithotr ipter table. I then used fluoroscopy to identify the stone on theright kidney. I then positioned the patient under the lithotripter and I used triangulation technique to identify the location of the stone and then I made sure that the stone was engaged in the F2 focal point of F2 Donier lithoprior machine. Once the patient was positioned appropriately and the stone was identified and placed in the F2 focal point of the lithotripter machine I then proceeded with shockwave lithotripsy. In the beginning the shockwave was delivered at a rate of 90 shocks per minute, anesthesia monitored the EKG for any ectopy. The power was slowly increased to 5 kV and subsequently at the 7 kV. I then proceededwith the treatment with shock wave therapy and around during the treatment to make sure the stone stayed in the F2 focal point during the entire treatment and after 3000 shockwaves were delivered to the stone underfluoroscopic guidance the treatment was completed. The patient was given instructionsto call the office to make an a follow-up appointment with an x-rayto evaluate the success of the tr eatment, patient understands that its possible the stones may need another procedure. At this pointthe patient's anesthetic was reversed patient was extubated and taken back to the PACU in stable condition. Surgical Findings: stone broke up well could still see many fragments, and right stent Complications Complications: No Admit VTE Documentation VTE Present on Admission: No VTE Mechan Device Prophylaxis: SCD's VTE Pharm Prophylaxis ordered?: No 04/25/25 4778 Cosigner Signature (if applicable): CC: Dr. Harjit Lam MD; Jarad Rey MD~ Signed [facility]08-27-2025 Discharge summary [facility] Medical Records Department [address] [place] [address] Instructions for Home/Discharge Instructions 04/25/25 1547 MR#: [id number] Acct: [id number] Name: RAMON COSTA Rep #:[id number] : 1955 69 From: Harjit Lam MD PCP: Jarad Rey MD Status:REG SDC Discharge Instructions DC O2, CPAP, BIPAP needs Home O2 Discharge instructions: No Dressing / Incision Discharge Activity: Return to Normal Activity and May Not Drive (while taking narcotic pain medications.) Dressing / Incision Call your doctor if you observe: Fever of 101 or Higher and Uncontrolled pain Follow Up Care Please Follow Up With: Harjit Lam MD When: Call [phone] for an appointment Test Results: Test results from this visit will be discussed in further detail at your follow- up appointment, if applicable. Discharge Plan Admission Primary Reason for Your Visit: ESWL Attending Provider: Harjit Lam Primary Care Provider: Jarad Rey Instructions Print Language: [place] Discharge Orders/Prescriptions Prescriptions: New ciprofloxacin HCl [Cipro] 500 mg tablet 500 mg PO BID Qty: 10 0RF tamsulosin [Flomax] 0.4 mg capsule 0.4 mg PO DAILY Qty: 14 0RF phenazopyridine [Pyridium] 100 mg tablet 100 mg PO TID Qty: 20 0RF oxycodone 5 mg tablet 5 mg PO Q6H PRN (Reason: pain) 3 Days Qty: 14 0RF Continued atorvastatin 40 mg tablet 40 mg PO QHS pantoprazole 40 mg tablet,delayed release (DR/EC) 40 mg PO DAILY ropinirole 1 mg tablet 1 mg PO QHS losartan 25 mg tablet 25 mg PO DAILY allopurinol 300 mg tablet 300 mg PO DAILY niacinamide 500 mg tablet 500 mg PO DAILY cyanocobalamin (vitamin B-12) 1,000 mcg capsule 1,000 mcg PO DAILY ascorbic acid (vitamin C) [C-500] 500 mg tablet 1 g PO DAILY cholecalciferol (vitamin D3) [Vitamin D3] 125 mcg (5,000 unit) tablet 125 mcg PO DAILY Held clopidogrel 75 mg tablet 75 mg PO DAILY Hold Instructions: Resume on 05/02/25. Referrals / Follow Up: Jarad Rey MD [Primary Care Provider] - Harjit Lam MD [Med Staff - Active Staff] - Disposition Disposition (needs filled in before D/C Order can be placed): Home, Self Care 04/25/25 1547Harjit Lam MD CC: Jarad Rey MD ~ Signed ADDENDUM by Dr. Harjit Lam MD on 04/25/25 at 1547 Next week with an KUB prior to appt. with vt. 04/25/25 1547Harjit Lam MD cc: Jarad Rey MD ~* Signed [facility]08-27-2025 Consult note Author Delonte Israel [facility] Note Date/Time April 25, 2025 12 :41pm [facility] Medical Records Department [address] [place] [address] Pre-Anesthesia Evaluation 04/25/25 1240 MR#: [id number] Acct: [id number] Name: RAMON COSTA Rep #:[id number] : 1955 69 From: Delonte Israel MD PCP: Jarad Rey MD Status:REG SDC Y Race: C Location: [place] [address] ASA Classification* ASA Classification ASA Classification: 3 Assessment & Plan Anesthesia* Anesthesia Assessment Anesthesia Assessment: Discussed sedation and/or anesthesia options, risks, benefits, and alternatives with patient/parents/legal guardian/POA. Questions invited. The patient/parents/legal guardian/POA seems to understand and agrees to proceedwith anesthesia plan. Reviewed the physical assessment, medical history, allergy history and patient home medications list prior to surgery/procedure/anesthetic and documented any changes. Performed airway and anesthesia risk assessments. Anesthesia Type Anesthesia Type: General History Source History Obtained from:: Patient and Chart Anesthesia Focused Assessment* Temperature: 97.4 F Pulse Rate: 53 Blood Pressure: 118/41 Respiratory Rate: 16 Pulse Ox: 99 Oxygen Delivery Method: Room Air Airway Assessment Mouth opens: >3 cm Mallampati Score: III Teeth Condition: Intact Neck Range of motion (ROM): Full ROM Labs Anesthesia Preop lab: CBC CHEMISTRY COAG Pre-Assessment Diagnosis/Proposed Procedure Planned Operative Procedure(s): BILAT ESWL CYSTO INSERTION STENT Anesthesia History Anesthesia History - char filter operator helper: Anesthesia History - char filter operator helper Hx Hospitalization No 04/13/25 13:21 Any Problems With Anesthesia No 04/13/25 13:21 Cholinesterase deficiency No 04/13/25 13:21 You/Your Family Experience No 04/13/25 13:21 fever (hyperthermia) with Relationship Recent Exposure to Contagious No 04/25/25 12:03 Disease Does patient have nerve No 04/13/25 13:21 stimulator Patient instructed to have device shut off --Does patient have Pacemaker No 04/25/25 12:03 or ICD? When Was Last Pacemaker Check QUESTION #4 FULL TEXT: You/Your Family Experience fever (hyperthermia) with Anesthesia Last Oral Intake Last Oral intake: Last Oral Intake NPO since 06:00 04/25/25 12:03 Meds taken in AM with sips of Yes 04/25/25 12:03 water? Meds patient instructed to LOSSARTAN,PROTONIX 04/25/25 12:03 take am of surgery PONV PONV - char filter operator helper: PONV - char filter operator helper Female No 04/13/25 13:21 HX of Motion Sickness No 04/13/25 13:21 HX of N/V After Surgery No 04/13/25 13:21 Non-Smoker Yes 04/13/25 13:21 Duration of Surgery greater Yes 04/13/25 13:21 than 60 minutes Number of Risk Factors 2 04/13/25 13:21 PONV Score Moderate Risk 04/13/25 13:21 Height & Weight Height & Weight: Anesthesia: Height & Weight Height 5 ft 9 in 04/25/25 12:03 Weight: 111 kg 04/25/25 12:03 Body Mass Index (BMI) 36.1 04/25/25 12:03 Respiratory Assessment Respiratory Assessment - char filter operator helper: Respiratory Tract Infection Hx - char filter operator helper Hx Respiratory Tract Infection No 04/13/25 13:21 STOP Sleep Apnea STOP Sleep Apnea - char filter operator helper: STOP Sleep Apnea - char filter operator helper Hx Hypertension Yes: CONTROLLED WITH MED 04/13/25 13:21 Hx Sleep Apnea Yes 04/13/25 13:21 CPAP Yes 04/13/25 13:21 BIPAP No 04/13/25 13:21 Do you snore loudly (louder than talking or can be heard Do you often feel tired/ fatigued/ sleepy during daytime? Has anyone observed you stop breathing during sleep? STOP Results Positive 04/13/25 13:21 QUESTION #5 FULL TEXT : Do you snore loudly (louder than talking or can be heard through closed doors)? 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 Specify any problems Hx of Preganancy in last 3 N/A 04/13/25 13:21 Months Nurse Filling Out Transfusion DSCHRIBER 04/13/25 13:21 & Questions: Date: 04/13/25 04/13/25 13:21 Time: 13:22 04/13/25 13:21 Patient unable to answer at this time (ie. confused, unrespo /Reproduction History /Reproductive History - char filter operator helper: /Reproductive Hx- char filter operator helper Hx Now No 04/13/25 13:21 Gestational Age (in weeks): EDC: Hx Hx Para Hx Section SAB No 04/13/25 13:21 Active Medications Active Medications: Current Medications Generic Name Dose Route Start Last Admin Trade Name Freq PRN Reason Stop Dose Admin Cefazolin Sodium 2 gm/ Sodium 110 mls @ 200 mls/hr 04/25/25 13:00 Chloride IV 04/25/25 13:32 INTRAOP ONE Lactated Ringer's 1,000 mls @ 15 mls/hr 04/25/25 11:15 04/25/25 12:12 IV 15 mls/hr .Q48H RAYA Administration PFSH Medical History (Updated 04/13/25 @ 13:33 by Vidya Maloney) Wears glasses Cancer Prostate disease High cholesterol Back pain Injury of back History of diverticulitis Gastric reflux Asthma Shortness of breath on exertion CPAP (continuous positive airway pressure) dependence Non-smoker History of edema History of stress test Cardiology follow-up encounter Hypertension Home Medications ?Medication ?Instructions ?Recorded ?Last Taken ?Type allopurinol 300 mg tablet 300 mg PO DAILY 04/13/25 History ascorbic acid (vitamin C) 500 mg 1 g PO DAILY 04/13/25 04/24/25 History tablet (C-500) atorvastatin 40 mg tablet 40 mg PO QHS 04/13/25 History cholecalciferol (vitamin D3) 125 125 mcg PO DAILY 03/3004/24/25 History mcg (5,000 unit) tablet (Vitamin D3) clopidogrel 75 mg tablet 75 mg PO DAILY 04/13/2503/31 History cyanocobalamin (vitamin B-12) 1,000 mcg PO DAILY 04/1304/24/25 History 1,000 mcg capsule losartan 25 mg tablet 25 mg PO DAILY 04/13/2503/31 History niacinamide 500 mg tablet 500 mg PO DAILY 04/13/25 History pantoprazole 40 mg tablet,delayed 40 mg PO DAILY 04/1304/25/25 History release ropinirole 1 mg tablet 1 mg PO QHS 04/13/25 5 History Allergy/AdvReac Type Severity Reaction Status Date / Time sulfamethoxazole (From AdvReac Intermediate Nausea/Vom/ Verified 04/25/25 12:00 Bactrim) Diarrhea trimethoprim (From Bactrim) AdvReac Intermediate Nausea/Vom/ Verified 04/25/25 12:00 Diarrhea Surgical History (Updated 04/13/25 @ 13:33 by Vidya Maloney) History of cardiac catheterization History of esophagogastroduodenoscopy (EGD) Hx of colonoscopy History of coronary artery stent placement Social History Smoking Status: Never smoker Review of Systems (Anesthesia) ROS Narrative System reviewed and no additional complaints, except as documented. 04/25/25 1241 <Electronically signed by Delonte Hill> Date _ Delonte Israel MD Cosign Signature: Date CC: ~ Signed [facility] Work Phone: 1(496) 999-130708-27-2025 Consult note [facility] Medical Records Department [address] [place] [address] Pre-Anesthesia Evaluation 04/25/25 1240 MR#: [id number] Acct: [id number] Name: RAMON COSTA Rep #:[id number] : 1955 69 From: Delonte Israel MD PCP: Jarad Rey MD Status:REG [facility] Y Race: C Location: [place] [address]- ASA Classification* ASA Classification ASA Classification: 3 Assessment & Plan Anesthesia* Anesthesia Assessment Anesthesia Assessment: Discussed sedation and/or anesthesia options, risks, benefits, and alternatives with patient/parents/legal guardian/POA. Questions invited. The patient/parents/legal guardian/POA seems to understand and agrees to proceedwith anesthesia plan. Reviewed the physical assessment, medical history, allergy history and patient home medications list prior to surgery/procedure/anesthetic and documented any changes. Performed airway and anesthesia risk assessments. Anesthesia Type Anesthesia Type: General History Source History Obtained from:: Patient and Chart Anesthesia Focused Assessment* Temperature: 97.4 F Pulse Rate: 53 Blood Pressure: 118/41 Respiratory Rate: 16 Pulse Ox: 99 Oxygen Delivery Method: Room Air Airway Assessment Mouth opens: >3 cm Mallampati Score: III Teeth Condition: Intact Neck Range of motion (ROM): Full ROM Labs Anesthesia Preop lab: CBC CHEMISTRY COAG Pre-Assessment Diagnosis/Proposed Procedure Planned Operative Procedure(s): BILAT ESWL CYSTO INSERTION STENT Anesthesia History Anesthesia History - char filter operator helper: Anesthesia History - char filter operator helper Hx Hospitalization No 04/13/25 13:21 Any Problems With Anesthesia No 04/13/25 13:21 Cholinesterase deficiency No 04/13/25 13:21 You/Your Family Experience No 04/13/25 13:21 fever (hyperthermia) with Relationship Recent Exposure to Contagious No 04/25/25 12:03 Disease Does patient have nerve No 04/13/25 13:21 stimulator Patient instructed to have device shut off --Does patient have Pacemaker No 04/25/25 12:03 or ICD? When Was Last Pacemaker Check QUESTION #4 FULL TEXT: You/Your Family Experience fever (hyperthermia) with Anesthesia Last Oral Intake Last Oral intake: Last Oral Intake NPO since 06:00 04/25/25 12:03 Meds taken in AM with sips of Yes 04/25/25 12:03 water? Meds patient instructed to LOSSARTAN,PROTONIX 04/25/25 12:03 take am of surgery PONV PONV - char filter operator helper: PONV - char filter operator helper Female No 04/13/25 13:21 HX of Motion Sickness No 04/13/25 13:21 HX of N/V After Surgery No 04/13/25 13:21 Non-Smoker Yes 04/13/25 13:21 Duration of Surgery greater Yes 04/13/25 13:21 than 60 minutes Number of Risk Factors 2 04/13/25 13:21 PONV Score Moderate Risk 04/13/25 13:21 Height & Weight Height & Weight: Anesthesia: Height & Weight Height 5 ft 9 in 04/25/25 12:03 Weight: 111 kg 04/25/25 12:03 Body Mass Index (BMI) 36.1 04/25/25 12:03 Respiratory Assessment Respiratory Assessment - char filter operator helper: Respiratory Tract Infection Hx - char filter operator helper Hx Respiratory Tract Infection No 04/13/25 13:21 STOP Sleep Apnea STOP Sleep Apnea - char filter operator helper: STOP Sleep Apnea - char filter operator helper Hx Hypertension Yes: CONTROLLED WITH MED 04/13/25 13:21 Hx Sleep Apnea Yes 04/13/25 13:21 CPAP Yes 04/13/25 13:21 BIPAP No 04/13/25 13:21 Do you snore loudly (louder than talking or can be heard Do you often feel tired/ fatigued/ sleepy during daytime? Has anyone observed you stop breathing during sleep? STOP Results Positive 04/13/25 13:21 QUESTION #5 FULL TEXT : Do you snore loudly (louder than talking or can be heard through closeddoors)? 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 Specify any problems Hx of Preganancy in last 3 N/A 04/13/25 13:21 Months Nurse Filling Out Transfusion DSCHRIBER 04/13/25 13:21 & Questions: Date: 04/13/25 04/13/25 13:21 Time: 13:22 04/13/25 13:21 Patient unable to answer at this time (ie. confused, unrespo /Reproduction History /Reproductive History - char filter operator helper: /Reproductive Hx- char filter operator helper Hx Now No 04/13/25 13:21 Gestational Age (in weeks): EDC: Hx Hx Para Hx Section SAB No 04/13/25 13:21 Active Medications Active Medications: Current Medications Generic Name Dose Route Start Last Admin Trade Name Abelino PRN Reason Stop Dose Admin Cefazolin Sodium 2 gm/ Sodium 110 mls @ 200 mls/hr 04/25/25 13:00 Chloride IV 04/25/25 13:32 INTRAOP ONE Lactated Ringer's 1,000 mls @ 15 mls/hr 04/25/25 11:15 04/25/25 12:12 IV 15 mls/hr .Q48H RAYA Administration [facility] Medical History (Updated 04/13/25 @ 13:33 by Vidya Maloney) Wears glasses Cancer Prostate disease High cholesterol Back pain Injury of back History of diverticulitis Gastric reflux Asthma Shortness of breath on exertion CPAP (continuous positive airway pressure) dependence Non-smoker History of edema History of stress test Cardiology follow-up encounter Hypertension Home Medications ?Medication ?Instructions ?Recorded ?Last Taken ?Type allopurinol 300 mg tablet 300 mg PO DAILY 04/13/25 History ascorbic acid (vitamin C) 500 mg 1 g PO DAILY 04/13/25 04/24/25 History tablet (C-500) atorvastatin 40 mg tablet 40 mg PO QHS 04/13/25 History cholecalciferol (vitamin D3) 125 125 mcg PO DAILY 03/3004/24/25 History mcg (5,000 unit) tablet (Vitamin D3) clopidogrel 75 mg tablet 75 mg PO DAILY 04/13/2503/31 History cyanocobalamin (vitamin B-12) 1,000 mcg PO DAILY 04/1304/24/25 History 1,000 mcg capsule losartan 25 mg tablet 25 mg PO DAILY 04/13/2503/31 History niacinamide 500 mg tablet 500 mg PO DAILY 04/13/25 History pantoprazole 40 mg tablet,delayed 40 mg PO DAILY 04/1304/25/25 History release ropinirole 1 mg tablet 1 mg PO QHS 04/13/25 5 History Allergy/AdvReac Type Severity Reaction Status Date / Time sulfamethoxazole (From AdvReac Intermediate Nausea/Vom/ Verified 04/25/25 12:00 Bactrim) Diarrhea trimethoprim (From Bactrim) AdvReac Intermediate Nausea/Vom/ Verified 04/25/25 12:00 Diarrhea Surgical History (Updated 04/13/25 @ 13:33 by Vidya Maloney) History of cardiac catheterization History of esophagogastroduodenoscopy (EGD) Hx of colonoscopy History of coronary artery stent placement Social History Smoking Status: Never smoker Review of Systems (Anesthesia) ROS Narrative System reviewed and no additional complaints, except as documented. 04/25/25 1241 D> Date _ Delonte Copeigndamaso Signature: Date CC: ~ Signed [facility]08-14-2025 Radiology Diagnostic study note [facility] Imaging Services [address] [place] [id number] Abdomen Single View MR#: [id number] Acct: [id number] Name: RAMON COSTA Rep #: [id number] : [id number] M 69 From: La Guerrero MD PCP: Jarad Rey MD Status: REG CLI Study:Abdomen Single View Date of Exam: 04/10/25 Exam# [id number] Ordering Dr: Melba Barr PROCEDURE: ABDOMEN SINGLE VIEW 04/10/2025 REASON FOR EXAM: CALCULUS OF KIDNEY TECHNIQUE: Abdomen, two views COMPARISON: None FINDINGS: There are a proximally 7 calcific densities overlying the right renal shadow measuring up to 1 cm. There are at least 3 calcifications overlying the left kidney measuring up to 5 mm. No demonstrated calcifications alongthe expected course of either ureter or within the pelvis. Bowel-gas pattern is unremarkable with retained stool there is no evidence of free air. Bony structures show degenerative change RAD/Abdomen Single View IMPRESSION: Bilateral nephrolithiasis, largest stone in the right kidney measures a proximally 1 cm, largest inthe left measures 0.5 cm No demonstrated calcifications along the expected course of either ureter Bony structures show degenerative change Reading Location: [id number] CC: Jarad Rey MD; Melba Barr ~ Self Rising Flour Mixer: Signed [facility]07-27-2025 Physician Emergency department Note* Zak Alvarez MD - 03/25/2025 9:46 PM EDT 69-year-old male history of kidney stones and BPH presents with a chief complaint of hematuria and bilateral flank discomfort since this morning. He was hoping it would go away on its own. Denies anyfrequency urgency or dysuria. No difficulty urinating. Review of Systems Physical Exam Vitals and nursing note reviewed. Constitutional: Appearance: He is not ill-appearing or toxic-appearing. HENT: Head: Normocephalic and atraumatic. Right Ear: Tympanic membrane normal. Left Ear: Tympanic membrane normal. Nose: Nose normal. Mouth/Throat: Mouth: Mucous membranes are moist. Pharynx: No oropharyngeal exudate or posterior oropharyngeal erythema. Eyes: Extraocular Movements: Extraocular movements intact. Conjunctiva/sclera: Conjunctivae normal. Pupils: Pupils are equal, round, and reactive to light. Cardiovascular: Rate and Rhythm: Normal rate and regular rhythm. Pulmonary: Effort: Pulmonary effort is normal. No respiratory distress. Breath sounds: Normal breath sounds. No wheezing, rhonchi or rales. Abdominal: General: There is no distension. Palpations: Abdomen is soft. There is no mass. Tenderness: There is no abdominal tenderness. There is no guarding. Musculoskeletal: General: No deformity. Normal range of motion. Cervical back: Neck supple. No tenderness. Skin: General: Skin is warm and dry. Neurological: General: No focal deficit present. Mental Status: He is alert and oriented to person, place, and time. Psychiatric: Mood and Affect: Mood normal. Labs Reviewed BASIC METABOLIC PANEL - Abnormal Result Value Glucose 105 (*) Sodium 138 Potassium 3.8 Chloride 106 Bicarbonate 27 Anion Gap 9 (*) Urea Nitrogen 12 Creatinine 1.40 (*) eGFR 55 (*) Calcium 8.8 URINALYSIS WITH REFLEX CULTURE AND MICROSCOPIC - Abnormal Color, Urine Light-Brown (*) Appearance, Urine Turbid (*) Specific [place], Urine 1.012 pH, Urine 6.5 Protein, Urine 30 (1+) (*) Glucose, Urine Normal Blood, Urine OVER (3+) (*) Ketones, Urine NEGATIVE Bilirubin, Urine NEGATIVE Urobilinogen, Urine Normal Nitrite, Urine NEGATIVE Leukocyte Esterase, Urine 250 Javad/uL (*) Narrative: OVER is reported when the result is greater than the clinically reportable range. MICROSCOPIC ONLY, URINE - Abnormal WBC, Urine 21-50 (*) RBC, Urine >20 (*) Bacteria, Urine 1+ (*) Mucus, Urine FEW URINE CULTURE CBC WITH AUTO DIFFERENTIAL WBC 9.3 nRBC 0.0 RBC 4.64 Hemoglobin 14.7 Hematocrit 43.6 MCV 94 MCH 31.7 MCHC 33.7 RDW 14.0 Platelets 189 Neutrophils % 59.1 Immature Granulocytes %, Automated 0.2 Lymphocytes % 28.4 Monocytes % 9.4 Eosinophils % 2.5 Basophils % 0.4 Neutrophils Absolute 5.50 Immature Granulocytes Absolute, Automated 0.02 Lymphocytes Absolute 2.64 Monocytes Absolute 0.87 Eosinophils Absolute 0.23 Basophils Absolute 0.04 URINALYSIS WITH REFLEX CULTURE AND MICROSCOPIC Narrative: The following orders were created for panel order Urinalysis with Reflex Culture and Microscopic. Procedure Abnormality Status --------- ------ Urinalysis with Reflex C...[[id number]] Abnormal Final result Extra Urine Johnson Tube[[id number]] Please view results for these tests on the individual orders. EXTRA URINE JOHNSON TUBE CT abdomen pelvis wo IV contrast Final Result 1. No acute abnormality in the abdomen/pelvis. Multiple bilateral intrarenal calculi without hydronephrosis or obstructive nephrolithiasis. Bilateral renal cysts. Prostatomegaly, clinical correlation for prostate etiology of hematuria recommended. 2. Cholelithiasis without cholecystitis. Hepatomegaly. Signed by: Maykel Ruano 03/25/2025 10:47 PM Dictation workstation: [id number] Procedures Medical Decision Making 69-year-old male history of kidney stones and BPH presents with a chief complaint of hematuria and bilateral flank discomfort since this morning. He was hoping it would go away on its own. Denies anyfrequency urgency or dysuria. No difficulty urinating. Urinalysis is concerning for urinary tract infection. I was able to pull up a urinalysis from last year and it was nearly identical to the urinalysis today and was susceptible to Cipro. Willgive initial dose of Cipro 400 mg IVPB and a prescription of Cipro 500 mg p.o. x 7 days. His white cell count is normal. He is afebrile. CT demonstrates multiple bilateral intrarenal calculi without hydronephrosis or obstructive nephrolithiasis. DDx: UTI, pyelonephritis, ureterolithiasis, prostatitis Diagnoses as of 03/25/25 2334 Hemorrhagic cystitis Zak Alvarez MD 03/25/25 2334 [facility] Work Phone: 1([phone]) 385-957007-27-2025 Emergency department Note* Zak Alvarez MD - 03/25/2025 9:46 PM EDT 69-year-old male history of kidney stones and BPH presents with a chief complaint of hematuria and bilateral flank discomfort since this morning. He was hoping it would go away on its own. Denies anyfrequency urgency or dysuria. No difficulty urinating. Review of Systems Physical Exam Vitals and nursing note reviewed. Constitutional: Appearance: He is not ill-appearing or toxic-appearing. HENT: Head: Normocephalic and atraumatic. Right Ear: Tympanic membrane normal. Left Ear: Tympanic membrane normal. Nose: Nose normal. Mouth/Throat: Mouth: Mucous membranes are moist. Pharynx: No oropharyngeal exudate or posterior oropharyngeal erythema. Eyes: Extraocular Movements: Extraocular movements intact. Conjunctiva/sclera: Conjunctivae normal. Pupils: Pupils are equal, round, and reactive to light. Cardiovascular: Rate and Rhythm: Normal rate and regular rhythm. Pulmonary: Effort: Pulmonary effort is normal. No respiratory distress. Breath sounds: Normal breath sounds. No wheezing, rhonchi or rales. Abdominal: General: There is no distension. Palpations: Abdomen is soft. There is no mass. Tenderness: There is no abdominal tenderness. There is no guarding. Musculoskeletal: General: No deformity. Normal range of motion. Cervical back: Neck supple. No tenderness. Skin: General: Skin is warm and dry. Neurological: General: No focal deficit present. Mental Status: He is alert and oriented to person, place, and time. Psychiatric: Mood and Affect: Mood normal. Labs Reviewed BASIC METABOLIC PANEL - Abnormal Result Value Glucose 105 (*) Sodium 138 Potassium 3.8 Chloride 106 Bicarbonate 27 Anion Gap 9 (*) Urea Nitrogen 12 Creatinine 1.40 (*) eGFR 55 (*) Calcium 8.8 URINALYSIS WITH REFLEX CULTURE AND MICROSCOPIC - Abnormal Color, Urine Light-Brown (*) Appearance, Urine Turbid (*) Specific [place], Urine 1.012 pH, Urine 6.5 Protein, Urine 30 (1+) (*) Glucose, Urine Normal Blood, Urine OVER (3+) (*) Ketones, Urine NEGATIVE Bilirubin, Urine NEGATIVE Urobilinogen, Urine Normal Nitrite, Urine NEGATIVE Leukocyte Esterase, Urine 250 Javad/uL (*) Narrative: OVER is reported when the result is greater than the clinically reportable range. MICROSCOPIC ONLY, URINE - Abnormal WBC, Urine 21-50 (*) RBC, Urine >20 (*) Bacteria, Urine 1+ (*) Mucus, Urine FEW URINE CULTURE CBC WITH AUTO DIFFERENTIAL WBC 9.3 nRBC 0.0 RBC 4.64 Hemoglobin 14.7 Hematocrit 43.6 MCV 94 MCH 31.7 MCHC 33.7 RDW 14.0 Platelets 189 Neutrophils % 59.1 Immature Granulocytes %, Automated 0.2 Lymphocytes % 28.4 Monocytes % 9.4 Eosinophils % 2.5 Basophils % 0.4 Neutrophils Absolute 5.50 Immature Granulocytes Absolute, Automated 0.02 Lymphocytes Absolute 2.64 Monocytes Absolute 0.87 Eosinophils Absolute 0.23 Basophils Absolute 0.04 URINALYSIS WITH REFLEX CULTURE AND MICROSCOPIC Narrative: The following orders were created for panel order Urinalysis with Reflex Culture and Microscopic. Procedure Abnormality Status --------- ------ Urinalysis with Reflex C...[[id number]] Abnormal Final result Extra Urine Johnson Tube[[id number]] Please view results for these tests on the individual orders. EXTRA URINE JOHNSON TUBE CT abdomen pelvis wo IV contrast Final Result 1. No acute abnormality in the abdomen/pelvis. Multiple bilateral intrarenal calculi without hydronephrosis or obstructive nephrolithiasis. Bilateral renal cysts. Prostatomegaly, clinical correlation for prostate etiology of hematuria recommended. 2. Cholelithiasis without cholecystitis. Hepatomegaly. Signed by: Maykel Ruano 03/25/2025 10:47 PM Dictation workstation: [id number] Procedures Medical Decision Making 69-year-old male history of kidney stones and BPH presents with a chief complaint of hematuria and bilateral flank discomfort since this morning. He was hoping it would go away on its own. Denies anyfrequency urgency or dysuria. No difficulty urinating. Urinalysis is concerning for urinary tract infection. I was able to pull up a urinalysis from last year and it was nearly identical to the urinalysis today and was susceptible to Cipro. Willgive initial dose of Cipro 400 mg IVPB and a prescription of Cipro 500 mg p.o. x 7 days. His white cell count is normal. He is afebrile. CT demonstrates multiple bilateral intrarenal calculi without hydronephrosis or obstructive nephrolithiasis. DDx: UTI, pyelonephritis, ureterolithiasis, prostatitis Diagnoses as of 03/25/25 2334 Hemorrhagic cystitis Zak Alvarez MD 03/25/25 2334 documented in this [facility] Work Phone: [phone]) 610-346901-15-2025 History of Present illness Narrative* Isabela Bazan MD - 09/13/2024 10:30 AM EST Subjective Patient ID: Ramon Costa is a 68 y.o. male. HPI Patient is here for 6 month follow up with kub for hx of kidney stones. No recent sx. Chronic BPH sx are mild and stable. Denies urgency and frequency. Weak stream and hesitancy at times. Denies dysuria. Denies hematuria. Nocturia x1. He is taking Flomax PRN. Hx of urinary retention. He knows [facility]IC. Most recent PSA was 1.98 on 10/23. ED is chronic. Review of Systems Constitutional: Negative for chills and fever. HENT: Negative. Eyes: Negative. Respiratory: Negative for cough and shortness of breath. Cardiovascular: Negative for chest pain and leg swelling. Gastrointestinal: Negative for nausea. Endocrine: Negative. Genitourinary: Negative for difficulty urinating. Negative except for documented in HPI Allergic/Immunologic: Negative. Neurological: Alert & oriented X 3 Hematological: Taking Plavix Psychiatric/Behavioral: Negative. Objective Physical Exam Vitals and nursing note reviewed. Constitutional: General: He is not in acute distress. Appearance: Normal appearance. Pulmonary: Effort: Pulmonary effort is normal. Abdominal: Tenderness: There is no abdominal tenderness. Genitourinary: Comments: Kidneys non palpable bilaterally Bladder non palpable or tender Scrotum no mass, No hydrocele Epididymis- No spermatocele. Non Tender. Testicles: No mass. WNL Urethra: No discharge Penis within normal limits... No lesions. circumcised Prostate - symmetric, no nodules. BENIGN Seminal Vesicals: No mass. Sphincter tone: normal Neurological: Mental Status: He is alert. Assessment/Plan Diagnoses and all orders for this visit: History of kidney stones Benign prostatic hyperplasia with lower urinary tract symptoms, symptom details unspecified Nocturia All available PSA values reviewed, Options discussed. Questions answered. New PSA ordered Diet changes for prostate health discussed and educational information given. Pros/Cons of prostatehealth supplements discussed. Treatment options for LUTS reviewed-Has Flomax PRN Discussed timed voiding. Discussed fluid and caffeine intake Treatment options for ED reviewed-observe Lifestyle change to help prevent UTIs discussed. Encouraged fluid intake. UA and Cx reviewed KUB reviewed Discussed PCNL VS Flexible ureteroscopy with laser and stent VS staged ESWL Stone prevention discussed. Diet reviewed. Discussed fluid intake Past BMP ordered-New BMP ordered F/U 6 months with Renal U/S and BMP and PSA documented in this [facility] Work Phone: [phone]) 449-975606-26-2024 History of Present illness Narrative* Isabela Bazan MD - 02/23/2024 10:45 AM EDT Subjective Patient ID: Ramon Costa is a 68 y.o. male. HPI Patient is here for 2 month follow up with KUB. Hx of kidney stones. He did have a CT done 09/22 which showed bilateral non obstructing renal stones. Chronic BPH sx are mild and stable. Denies urgencyand frequency. Denies dysuria. Denies hematuria. Nocturia x1. He stopped taking Flomax a week ago and has not seen much difference. Hx of urinary retention. He knows [facility]. Most recent PSA was 1.98 on 10/23. ED is chronic. Review of Systems Constitutional: Negative for chills and fever. HENT: Negative. Eyes: Negative. Respiratory: Negative for cough and shortness of breath. Cardiovascular: Negative for chest pain and leg swelling. Gastrointestinal: Negative for nausea. Endocrine: Negative. Genitourinary: Negative for difficulty urinating. Negative except for documented in HPI Allergic/Immunologic: Negative. Neurological: Alert & oriented X 3 Hematological: Denies blood thinners Psychiatric/Behavioral: Negative. Objective Physical Exam Vitals and nursing note reviewed. Pulmonary: Effort: Pulmonary effort is normal. Abdominal: Palpations: Abdomen is soft. Tenderness: There is no abdominal tenderness. Genitourinary: Comments: Kidneys non palpable bilaterally Bladder non palpable or tender Neurological: Mental Status: He is alert. Assessment/Plan Diagnoses and all orders for this visit: Benign prostatic hyperplasia with lower urinary tract symptoms, symptom details unspecified History of kidney stones - XR abdomen 1 view; Future Nocturia All available PSA values reviewed, Options discussed. Questions answered. Diet changes for prostate health discussed and educational information given. Pros/Cons of prostatehealth supplements discussed. Treatment options for LUTS reviewed Continue Flomax-Patient taking PRN-refills authorized Discussed timed voiding. Discussed fluid and caffeine intake Treatment options for ED reviewed. Lifestyle change to help prevent UTIs discussed. Encouraged fluid intake. CT reviewed KUB reviewed Discussed Dusting with flexible ureteroscopy and R ESWL as combined procedure- Explained this may take a few Tx. Also the cluster of the 3 may be in a calyceal tic-Patient Asx and does not want Tx at this time Stone prevention discussed. Diet reviewed. Discussed fluid intake F/U 6 months with [facility]UB [facility]: 1([phone] 391-214704-18-2024 History of Present illness Narrative* Isabela Bazan MD - 12/16/2023 3:30 PM EDT Subjective Patient ID: Ramon Costa is a 68 y.o. male. HPI Patient is here for 1 month follow up for hx of urinary retention. He knows [facility]. He has not done this for few weeks. Feels he's going well on his own. He is taking Flomax. Hx of kidney stones. Last stone was 3-4 years ago. He is having left flank pain. He did have a CT done 09/22 which showed bilateral non obstructing renal stones. ED is chronic. He is not on and medication for this. He carries NTG but has never taken it. Patient has a Hx of renal cyst . PSA 10/23 was 1.98. PVR 12/16/23 was 8ml Review of Systems Constitutional: Negative for chills and fever. HENT: Negative. Eyes: Negative. Respiratory: Negative for cough and shortness of breath. Cardiovascular: Negative for chest pain and leg swelling. Gastrointestinal: Negative for nausea. Endocrine: Negative. Genitourinary: Negative for difficulty urinating. Negative except for documented in HPI Allergic/Immunologic: Negative. Neurological: Alert & oriented X 3 Hematological: Denies blood thinners Psychiatric/Behavioral: Negative. Objective Physical Exam Vitals and nursing note reviewed. Pulmonary: Effort: Pulmonary effort is normal. Breath sounds: Normal breath sounds. Abdominal: Palpations: Abdomen is soft. Tenderness: There is no abdominal tenderness. Genitourinary: Comments: Kidneys non palpable bilaterally Bladder non palpable or tender Neurological: Mental Status: He is alert. Assessment/Plan Diagnoses and all orders for this visit: History of kidney stones Nocturia - POCT UA Automated manually resulted Benign prostatic hyperplasia with lower urinary tract symptoms, symptom details unspecified All available PSA values reviewed, Options discussed. Questions answered. Diet changes for prostate health discussed and educational information given. Pros/Cons of prostatehealth supplements discussed. Treatment options for LUTS reviewed Continue FLomax Discussed timed voiding. Discussed fluid and caffeine intake Treatment options for ED reviewed. Lifestyle change to help prevent UTIs discussed. Encouraged fluid intake. Past CT reviewed KUB reviewed-Discussed pros/cons of ESWL Will recheck KUB at F/U Flexeril given for left back pain-possibly muculoskeletal F/U 2 months with KUB documented in this [facility] Work Phone: [phone] History of Present illness Narrative* Isabela Bazan MD - 11/15/2023 3:00 PM EDT Subjective Patient ID: Ramon Costa is a 67 y.o. male. HPI Patient is here for 1 week follow up. He was seen last week for urinary retention. He had yan removed last week and was taught CIC. He has been having do to this twice daily. He does go some on hisown as well. Urine cx done last week for positive. He is taking Flomax and urogesic blue. . Hx of kidney stones. Last stone was 3-4 years ago. He did have a CT done 09/22 which showed bilateral non obstructing renal stones. ED is chronic. He is not on and medication for this. He carries NTG but has never taken it. Patient has a Hx of renal cyst . PSA 10/23 was 1.98 Review of Systems Constitutional: Negative for chills and fever. HENT: Negative. Eyes: Negative. Respiratory: Negative for cough and shortness of breath. Cardiovascular: Negative for chest pain and leg swelling. Gastrointestinal: Negative for nausea. Endocrine: Negative. Genitourinary: Negative for difficulty urinating. Negative except for documented in HPI Allergic/Immunologic: Negative. Neurological: Alert & oriented X 3 Hematological: Denies blood thinners Psychiatric/Behavioral: Negative. Objective Physical Exam Vitals and nursing note reviewed. Pulmonary: Effort: Pulmonary effort is normal. Breath sounds: Normal breath sounds. Abdominal: Palpations: Abdomen is soft. Tenderness: There is no abdominal tenderness. Genitourinary: Comments: Kidneys non palpable bilaterally Bladder non palpable or tender Neurological: Mental Status: He is alert. Assessment/Plan Diagnoses and all orders for this visit: Benign prostatic hyperplasia with lower urinary tract symptoms, symptom details unspecified Dysuria History of kidney stones Nocturia Retention of urine All available PSA values reviewed, Options discussed. Questions answered. Diet changes for prostate health discussed and educational information given. Pros/Cons of prostatehealth supplements discussed. Treatment options for LUTS reviewed Patient knows [facility]IC Discussed timed voiding. Discussed fluid and caffeine intake Treatment options for ED reviewed. Lifestyle change to help prevent UTIs discussed. Encouraged fluid intake. Cx reviewed from 10/11/23 Macrodantin Rx given today F/U 3 weeks with UA and patient to keep PVR log documented in this [facility] Work Phone: 1([phone]) 783-702203-13-2024 History of Present illness Narrative* Isabela Bazan MD - 11/10/2023 10:45 AM EDT Virtual or Telephone Consent An interactive audio and video telecommunication system which permits real time communications between the patient (at the originating site) and provider (at the distant site) was utilized to providethis telehealth service. Verbal consent was requested and obtained from Ramon Costa on this date, 11/10/23 for a telehealth visit. Subjective Patient ID: Ramon Costa is a 67 y.o. male. HPI Patient is here for 2 day follow up. He was seen Wednesday for dysuria after his cysto last week. Had some fever and chills also last week. Was in [facility] ER last night and had a yan placed, 875 mls drained. Was started on Keflex. Complains of frequency and urgency. Also has some constipation. He was given Flomax and states but had to go to the ER. Urine culture is pending from ER, the one from Wednesday was negativeChronic BPH sx are mild and stable. Denies urgency and frequency. No medicationfor LUT'S. Hx of kidney stones. Last stone was 3-4 years ago. He did have a CT done 09/22 which showed bilateral non obstructing renal stones. ED is chronic. He is not on and medication for this. He carries NTG but has never taken it. Patient has a Hx of renal cyst . PSA 10/23 was 1.98 Review of Systems Constitutional: Negative for chills and fever. HENT: Negative. Eyes: Negative. Respiratory: Negative for cough and shortness of breath. Cardiovascular: Negative for chest pain and leg swelling. Gastrointestinal: Negative for nausea. Endocrine: Negative. Genitourinary: Negative for difficulty urinating. Negative except for documented in HPI Allergic/Immunologic: Negative. Neurological: Alert & oriented X 3 Hematological: Denies blood thinners Psychiatric/Behavioral: Negative. Objective Physical Exam Virtual visit Assessment/Plan Diagnoses and all orders for this visit: Nocturia Dysuria Benign prostatic hyperplasia with lower urinary tract symptoms, symptom details unspecified All available PSA values reviewed, Options discussed. Questions answered. Diet changes for prostate health discussed and educational information given. Pros/Cons of prostatehealth supplements discussed. Treatment options for LUTS reviewed Voiding trial today Rx for CIC supplies given Instructed patient on CIC technique Continue Flomax Urogesic Blue Rx given Discussed timed voiding. Discussed fluid and caffeine intake Treatment options for ED reviewed. Lifestyle change to help prevent UTIs discussed. Encouraged fluid intake. F/U 1 week documented in this [facility] Work Phone: 1([phone]) 353-803703-12-2024 Emergency department Note* Karen Fischer PA-C - 11/09/2023 6:26 PM EDT Patient is a 67-year-old male who presents to the emergency department with a chief complaint of difficulty urinating. Patient states that he had a cystoscopy performed by Dr. Bazan last Wednesday, 8 days ago. He states that 3 days ago he noticed that he had to be forceful when attempting to urinate and was having slight difficulty urinating that is progressed to an inability to urinate today. Patient states that he had the cystoscopy as there was noted to be blood in his urine. Patient states he has a virtual visit with Dr. Bazan tomorrow. He states that he has been having bladder spasms and alsodifficulty having a bowel movement. He states that his last bowel movement was approximately 5 daysago, occasionally has a small amount of stool on the toilet paper. Review of Systems Constitutional: Negative for chills and fever. HENT: Negative for ear pain and sore throat. Eyes: Negative for pain and visual disturbance. Respiratory: Negative for cough and shortness of breath. Cardiovascular: Negative for chest pain and palpitations. Gastrointestinal: Negative for abdominal pain and vomiting. Genitourinary: Positive for difficulty urinating and dysuria. Negative for hematuria. Musculoskeletal: Negative for arthralgias and back pain. Skin: Negative for color change and rash. Neurological: Negative for seizures and syncope. All other systems reviewed and are negative. Physical Exam Vitals and nursing note reviewed. Constitutional: General: He is not in acute distress. Appearance: Normal appearance. He is well-developed. HENT: Head: Normocephalic and atraumatic. Eyes: Extraocular Movements: Extraocular movements intact. Conjunctiva/sclera: Conjunctivae normal. Cardiovascular: Rate and Rhythm: Normal rate and regular rhythm. Heart sounds: No murmur heard. Pulmonary: Effort: Pulmonary effort is normal. No respiratory distress. Breath sounds: Normal breath sounds. Abdominal: General: There is distension. Palpations: Abdomen is soft. There is no mass. Tenderness: There is no abdominal tenderness. There is no guarding or rebound. Hernia: No hernia is present. Musculoskeletal: General: No swelling. Cervical back: Normal range of motion and neck supple. Skin: General: Skin is warm and dry. Capillary Refill: Capillary refill takes less than 2 seconds. Neurological: General: No focal deficit present. Mental Status: He is alert. Psychiatric: Mood and Affect: Mood normal. Labs Reviewed URINALYSIS WITH REFLEX CULTURE AND MICROSCOPIC - Abnormal Result Value Color, Urine Yellow Appearance, Urine Hazy (*) Specific [place], Urine 1.015 pH, Urine 6.0 Protein, Urine 30 (1+) (*) Glucose, Urine NEGATIVE Blood, Urine NEGATIVE Ketones, Urine NEGATIVE Bilirubin, Urine NEGATIVE Urobilinogen, Urine <2.0 Nitrite, Urine NEGATIVE Leukocyte Esterase, Urine MODERATE (2+) (*) MICROSCOPIC ONLY, URINE - Abnormal WBC, Urine >50 (*) WBC Clumps, Urine OCCASIONAL RBC, Urine 11-20 (*) Bacteria, Urine 3+ (*) Mucus, Urine 4+ URINE CULTURE URINALYSIS WITH REFLEX CULTURE AND MICROSCOPIC Narrative: The following orders were created for panel order Urinalysis with Reflex Culture and Microscopic. Procedure Abnormality Status --------- ------ Urinalysis with Reflex C...[[id number]] Abnormal Final result Extra Urine Johnson Tube[[id number]] Please view results for these tests on the individual orders. EXTRA URINE JOHNSON TUBE No orders to display Procedures Medical Decision Making Patient is a 67-year-old male who presents to the emergency department with a chief complaint of difficulty urinating after a cystoscopy that was performed approximately 8 days ago with worsening symptoms over the past 3 days and little to no urine output today. Upon postvoid bladder scan patient had 875 mL of urine. Yan catheter was placed. Urinalysis sent for testing shows evidence of a urinary tract infection. I do see that patient has a urine culture pending from yesterday with no results. Patient does report multiple reactions to antibiotics. States that last time he was on Bactrim he had a horrible reaction. Patient will be placed on Keflex 4 times daily. First dose given in the [facility] room along with Pyridium. Patient is also concerned as he was unable to have a bowel movement. Rectal exam performed, there is noted stool in the rectal vault with no fecal impaction. Given that patient's bladder was distended this was likely contributing to his constipation, I do suspect that this will resolve patient's constipation. Differential diagnosis includes but not limited to urinary retention, urinary tract infection, hematuria, urinary obstruction Amount and/or Complexity of Data Reviewed Labs: ordered. Decision-making details documented in ED Course. Diagnoses as of 11/09/232024 Urinary retention Urinary tract infection with hematuria, site unspecified Karen Fischer PA-C 11/09/232024 documented in this [facility] Work Phone: 1([phone]) 104-136203-12-2024 Physician Emergency department Note* Kaern Fischer PA-C - 11/09/2023 6:26 PM EDT Patient is a 67-year-old male who presents to the emergency department with a chief complaint of difficulty urinating. Patient states that he had a cystoscopy performed by Dr. Bazan last Wednesday, 8 days ago. He states that 3 days ago he noticed that he had to be forceful when attempting to urinate and was having slight difficulty urinating that is progressed to an inability to urinate today. Patient states that he had the cystoscopy as there was noted to be blood in his urine. Patient states he has a virtual visit with Dr. Bazan tomorrow. He states that he has been having bladder spasms and alsodifficulty having a bowel movement. He states that his last bowel movement was approximately 5 daysago, occasionally has a small amount of stool on the toilet paper. Review of Systems Constitutional: Negative for chills and fever. HENT: Negative for ear pain and sore throat. Eyes: Negative for pain and visual disturbance. Respiratory: Negative for cough and shortness of breath. Cardiovascular: Negative for chest pain and palpitations. Gastrointestinal: Negative for abdominal pain and vomiting. Genitourinary: Positive for difficulty urinating and dysuria. Negative for hematuria. Musculoskeletal: Negative for arthralgias and back pain. Skin: Negative for color change and rash. Neurological: Negative for seizures and syncope. All other systems reviewed and are negative. Physical Exam Vitals and nursing note reviewed. Constitutional: General: He is not in acute distress. Appearance: Normal appearance. He is well-developed. HENT: Head: Normocephalic and atraumatic. Eyes: Extraocular Movements: Extraocular movements intact. Conjunctiva/sclera: Conjunctivae normal. Cardiovascular: Rate and Rhythm: Normal rate and regular rhythm. Heart sounds: No murmur heard. Pulmonary: Effort: Pulmonary effort is normal. No respiratory distress. Breath sounds: Normal breath sounds. Abdominal: General: There is distension. Palpations: Abdomen is soft. There is no mass. Tenderness: There is no abdominal tenderness. There is no guarding or rebound. Hernia: No hernia is present. Musculoskeletal: General: No swelling. Cervical back: Normal range of motion and neck supple. Skin: General: Skin is warm and dry. Capillary Refill: Capillary refill takes less than 2 seconds. Neurological: General: No focal deficit present. Mental Status: He is alert. Psychiatric: Mood and Affect: Mood normal. Labs Reviewed URINALYSIS WITH REFLEX CULTURE AND MICROSCOPIC - Abnormal Result Value Color, Urine Yellow Appearance, Urine Hazy (*) Specific [place], Urine 1.015 pH, Urine 6.0 Protein, Urine 30 (1+) (*) Glucose, Urine NEGATIVE Blood, Urine NEGATIVE Ketones, Urine NEGATIVE Bilirubin, Urine NEGATIVE Urobilinogen, Urine <2.0 Nitrite, Urine NEGATIVE Leukocyte Esterase, Urine MODERATE (2+) (*) MICROSCOPIC ONLY, URINE - Abnormal WBC, Urine >50 (*) WBC Clumps, Urine OCCASIONAL RBC, Urine 11-20 (*) Bacteria, Urine 3+ (*) Mucus, Urine 4+ URINE CULTURE URINALYSIS WITH REFLEX CULTURE AND MICROSCOPIC Narrative: The following orders were created for panel order Urinalysis with Reflex Culture and Microscopic. Procedure Abnormality Status --------- ------ Urinalysis with Reflex C...[[id number]] Abnormal Final result Extra Urine Johnson Tube[[id number]] Please view results for these tests on the individual orders. EXTRA URINE JOHNSON TUBE No orders to display Procedures Medical Decision Making Patient is a 67-year-old male who presents to the emergency department with a chief complaint of difficulty urinating after a cystoscopy that was performed approximately 8 days ago with worsening symptoms over the past 3 days and little to no urine output today. Upon postvoid bladder scan patient had 875 mL of urine. Yan catheter was placed. Urinalysis sent for testing shows evidence of a urinary tract infection. I do see that patient has a urine culture pending from yesterday with no results. Patient does report multiple reactions to antibiotics. States that last time he was on Bactrim he had a horrible reaction. Patient will be placed on Keflex 4 times daily. First dose given in the [facility] room along with Pyridium. Patient is also concerned as he was unable to have a bowel movement. Rectal exam performed, there is noted stool in the rectal vault with no fecal impaction. Given that patient's bladder was distended this was likely contributing to his constipation, I do suspect that this will resolve patient's constipation. Differential diagnosis includes but not limited to urinary retention, urinary tract infection, hematuria, urinary obstruction Amount and/or Complexity of Data Reviewed Labs: ordered. Decision-making details documented in ED Course. Diagnoses as of 11/09/232024 Urinary retention Urinary tract infection with hematuria, site unspecified Karen Fischer PA-C 11/09/232024 [facility] Work Phone: 1([phone]) 914-502103-12-2024 Reason for referral (narrative)* Consultation (Routine) - Authorized Specialty Diagnoses / Procedures Referred By Roxanne pearson Referred To Contact Urology Karen Fischer PA-C [address] [facility] [place] [address] Referral ID Status Reason Start Date Expiration Date Visits Requested Visits Authorized [id number] Authorized Specialty Services Required 11/09/2023 11/08/2024 1 1 [facility] Work Phone: 1(875) 673-130203-11-2024 History of Present illness Narrative* Isabela Bazan MD - 11/08/2023 11:00 AM EDT Virtual or Telephone Consent A telephone visit (audio only) between the patient (at the originating site) and the provider (at the distant site) was utilized to provide this telehealth service. Verbal consent was requested and obtained from Ramon Costa on this date, 11/08/23 for a telehealth visit. Subjective Patient ID: Ramon Costa is a 67 y.o. male. HPI Patient is here for dysuria after his cystoscopy last week. States was given Cipro and finishedit. Had some fever and chills also last week. Complains of frequency and urgency. Also has some constipation. Chronic BPH sx are mild and stable. Denies urgency and frequency. No medication for LUT'S. Hx of kidney stones. Last stone was 3-4 years ago. He did have a CT done 09/22 which showed bilateral non obstructing renal stones No recent PSA was done. ED is chronic. He is not on and medication for this. He carries NTG but has never taken it. Patient has a Hx of renal cyst Review of Systems Constitutional: Negative for chills and fever. HENT: Negative. Eyes: Negative. Respiratory: Negative for cough and shortness of breath. Cardiovascular: Negative for chest pain and leg swelling. Gastrointestinal: Negative for nausea. Endocrine: Negative. Genitourinary: Negative for difficulty urinating. Negative except for documented in HPI Allergic/Immunologic: Negative. Neurological: Alert & oriented X 3 Hematological: Denies blood thinners Psychiatric/Behavioral: Negative. Objective Physical Exam No PE done given the virtual nature of visit. Assessment/Plan Diagnoses and all orders for this visit: Nocturia Benign prostatic hyperplasia with lower urinary tract symptoms, symptom details unspecified History of kidney stones Dysuria All available PSA values reviewed, Options discussed. Questions answered. Diet changes for prostate health discussed and educational information given. Pros/Cons of prostatehealth supplements discussed. Treatment options for LUTS reviewed Flomax Rx given Discussed timed voiding. Discussed fluid and caffeine intake Treatment options for ED reviewed. Lifestyle change to help prevent UTIs discussed. Encouraged fluid intake. Urine Cx F/U Wednesday in office for PVR check Virtual [facility]: 1([phone]) [phone] History of Present illness Narrative* Yaneth Funez MA - 11/01/2023 10:00 AM EST Patient ID: Ramon Costa is a 67 y.o. male. Procedures The patient was prepped using a Betadine solution. Lidocaine jelly was instilled into the urethra. The flexible cystoscope was sterilely inserted into the urethra and formal cystoscopy performed in asystematic fashion. . For detailed findings of the procedure, please see Dr. Bazan remarks below CIPRO 250MG POBID TIMES 3 DAYS GIVEN PSA 1.98 (10/07/2023) KUB 10/07/2023 IMPRESSION: 1. Multiple right renal calculi. A few small left renal calculi Present. Multiple calcifications project over the right kidney the largest measuring 11 mm. A few small left renal calculi are identified as well. There is no bowel obstruction. NO MASS. NO BLADDER STONE. MINIMAL TRABECULATION LARGE PROSTATE KUB REVIEWED-DISCUSSED ESWL F/U 6 MONTHS WITH KUB [facility] Phone: [phone] 700-307902-08-2024 History of Present illness Narrative* Isabela Bazan MD - 10/07/2023 10:15 AM EST Subjective Patient ID: Ramon Costa is a 67 y.o. male. HPI Patient is here to establish care. Chronic BPH sx are mild and stable. Denies urgency and frequency. Denies dysuria. Denies hematuria. Nocturia x1. No medication for LUT'S. Hx of kidney stones. Last stone was 3-4 years ago. He did have a CT done 09/22 which showed bilateral non obstructing renal stones No recent PSA was done. ED is chronic. He is not on and medication for this. He carries NTG but has never taken it. Patient has a Hx of renal cyst Review of Systems Constitutional: Negative for chills and fever. HENT: Negative. Eyes: Negative. Respiratory: Negative for cough and shortness of breath. Cardiovascular: Negative for chest pain and leg swelling. Gastrointestinal: Negative for nausea. Endocrine: Negative. Genitourinary: Negative for difficulty urinating. Negative except for documented in HPI Allergic/Immunologic: Negative. Neurological: Alert & oriented X 3 Hematological: Denies blood thinners Psychiatric/Behavioral: Negative. Objective Physical Exam Vitals and nursing note reviewed. Constitutional: General: He is not in acute distress. Appearance: Normal appearance. Pulmonary: Effort: Pulmonary effort is normal. Abdominal: Tenderness: There is no abdominal tenderness. Genitourinary: Comments: Kidneys non palpable bilaterally Bladder non palpable or tender Scrotum no mass, No hydrocele Epididymis- No spermatocele. Non Tender. Testicles: No mass. Right slightly smaller Urethra: No discharge Penis within normal limits... No lesions. circumcised Prostate - symmetric, no nodules. WNL Seminal Vesicals: No mass. Sphincter tone: normal Neurological: Mental Status: He is alert. Assessment/Plan Diagnoses and all orders for this visit: Benign prostatic hyperplasia with lower urinary tract symptoms, symptom details unspecified Nocturia History of kidney stones CT reviewed KUB ordered Stone prevention discussed. Diet reviewed. Discussed fluid intake All available PSA values reviewed, Options discussed. Questions answered. PSA ordered Diet changes for prostate health discussed and educational information given. Pros/Cons of prostatehealth supplements discussed. Treatment options for LUTS reviewed Discussed timed voiding. Discussed fluid and caffeine intake Treatment options for ED reviewed. Lifestyle change to help prevent UTIs discussed. Encouraged fluid intake. Cysto scheduled F/U with PSA and KUB and Cysto documented in this [facility] Work Phone: 1([phone]) 422-723011-10-2021 History of Present illness Narrative* Initial Fall Risk Screening: * RAMON has not fallen in the last 6 months. His fall did not result in injury. RAMON does not have a fear of falling. He does not need assistance with sitting, standing or walking. Does not need assistance walking in his home. He does not need assistance in an unfamiliar setting. The patient is not using an assistive device. [facility] [employer] Work Phone: 1([phone]) 386-813907-01-2021 History of Present illness Narrative* Diamond Shah RN - 02/27/2021 9:59 AM EDT Reviewed history, allergies, and medications. Patient held his home medications prior to testing. Consent confirmed. Lexiscan exam explained. Placed patient on monitor. @ 1003 computer service technician here to inject Lexiscan. SOB noted during recovery phase. Denied chest pain.Few pvc's noted. Patient off monitor and instructed to eat, will have last part of exam in 1 hour. [facility] Phone: 1([phone]) 145-176806-21-2021 Hospital Discharge instructions* Instructions* Oscar Dickens MD - 02/17/2021 ICE AFFECTED AREA. WRAP FOR SUPPORT. RETURN FOR NEW OR WORSENING SYMPTOMS. * Attachments The following attachments cannot be sent through Care Everywhere. * Hand Pain ([place]) documented in this [facility] Phone: [phone]) [phone] Telephone encounter Note* Telephone Encounter - Anita Hernandez LPN - 06/10/2015 8:[address] Barreto pt [id number] Miscellaneous Notes* Telephone Encounter - Anita Hernandez LPN - 06/10/2015 8:[address] Barreto pt documented in this [id number] Telephone encounter Note* Telephone Encounter - Nina Cameron LPN - 06/04/2015 3:42 PM EDT Med list updated [id number] Miscellaneous Notes* Telephone Encounter - Nina Cameron LPN - 06/04/2015 3:42 PM EDT Med list updated * Telephone Encounter - Briana Gan CNP - 06/03/2015 3:43 PM EDT No med list available documented in this [id number] Telephone encounter Note* Telephone Encounter - Briana Gan CNP - 06/03/2015 3:43 PM EDT No med list available [facility] Work Phone: Consult note Author Gonzalo Saucedo [facility] Note Date/Time April 25, 2025 4: 48pm [facility] Medical Records Department [address] [place] [address] Anesthesia Postop Eval I 04/25/25 1647 MR#: [id number] Acct: [id number] Name: RAMON COSTA Rep #:[id number] : 1955 69 From: Gonzalo Saucedo CRNA PCP: Jarad Rey MD Status:REG SDC Y Race: C Location: [place] [address] Anesthesia: Postop Eval I Current Vital Signs Temperature: 96.6 F Pulse Rate: 65 Blood Pressure: 159/77 Respiratory Rate: 20 Pulse Ox: 99 Oxygen Delivery Method: Room Air Assessment Airway patent: Yes Spontaneous unlabored respirations: Yes Mental status: Awake nausea: No Vomiting: No Anesthesia Complication: No Fluid Hydration Crystalloid volume administer (ml): 900 Total IV fluid infused: 900 Progress Note Anesthesia document: Postop Eval 1 completed: Yes 04/25/25 5438 <Electronically signed by Gonzalo mccain CRNA> Date _ Gonzalo Saucedo CRNA Cosigner Signature: Date CC: ~ Signed [facility] Work Phone: Evaluation note* Diagnosis Right hand pain- Primary Pain in limb documented in this encounter [employer] Phone: evaluation note* Diagnosis THURMAN (dyspnea on exertion) Other dyspnea and respiratory abnormality documented in this encounter [employer] Phone: evaluation note* Diagnosis Annual physical exam Routine general medical examination at a [facility] care facility Prostate cancer screening Special screening for malignant neoplasm of prostate documented in this encounter [employer] Phone: evaluation note* Diagnosis Multiple thyroid nodules Nontoxic multinodular goiter documented in this encounter [employer] Phone: evaluation note* Diagnosis SOB (shortness of breath) Shortness of breath documented in this encounter [employer] Phone: evaluation note* Diagnosis SOB (shortness of breath) Shortness of breath documented in this encounter [employer] Phone: evaluation note* Diagnosis Benign prostatic hyperplasia with lower urinary tract symptoms, symptom details unspecified Nocturia History of kidney stones documented in this encounter [facility] Work Phone: Evaluation note* Diagnosis History of kidney stones documented in this encounter [facility] Work Phone: Evaluation note* Diagnosis Hematuria, unspecified type- Primary documented in this encounter [facility] Work Phone: Evaluation note* Diagnosis Nocturia Benign prostatic hyperplasia with lower urinary tract symptoms, symptom details unspecified History of kidney stones Dysuria documented in this encounter [facility] Work Phone: [phone] note* Diagnosis Urinary retention- Primary Unspecified retention of urine Urinary tract infection with hematuria, site unspecified Nocturia Dysuria Benign prostatic hyperplasia with lower urinary tract symptoms, symptom details unspecified documented in this encounter [facility] Work Phone: [phone] note* Diagnosis Nocturia Dysuria Benign prostatic hyperplasia with lower urinary tract symptoms, symptom details unspecified [facility] [place] Work Phone: [phone] note* Diagnosis Benign prostatic hyperplasia with lower urinary tract symptoms, symptom details unspecified Dysuria History of kidney stones Nocturia Retention of urine Unspecified retention of urine documented in this encounter [facility] [place] Work Phone: [phone] note* Diagnosis History of kidney stones Nocturia Benign prostatic hyperplasia with lower urinary tract symptoms, symptom details unspecified documented in this encounter [facility] [place] Work Phone: [phone] note* Diagnosis Encounter for annual wellness exam in Medicare patient- Primary Encounter for immunization Need for other specified prophylactic vaccination against single bacterial disease Medicare annual wellness visit, subsequent Routine general medical examination at a health care facility Chronic obstructive pulmonary disease, unspecified COPD type (HCC) Malignant melanoma, unspecified site (HCC) Encounter for annual wellness exam in Medicare patient [facility] History of kidney stones documented in this encounter [facility] [place] Work Phone: [phone] note* Diagnosis Benign prostatic hyperplasia with lower urinary tract symptoms, symptom details unspecified- Primary History of kidney stones Nocturia History of kidney stones documented in this encounter [facility] [place] Work Phone: [phone] note* Diagnosis History of kidney stones Benign prostatic hyperplasia with lower urinary tract symptoms, symptom details unspecified Nocturia documented in this encounter [facility] [place] Work Phone: [phone] note* Diagnosis Hemorrhagic cystitis- Primary Unspecified cystitis documented in this encounter [facility] [place] Work Phone: Evaluation note* Diagnosis Encounter for annual wellness exam in Medicare patient- Primary Encounter for immunization Need for other specified prophylactic vaccination against single bacterial disease Medicare annual wellness visit, subsequent Routine general medical examination at a health care facility Chronic obstructive pulmonary disease, unspecified COPD type (HCC) Malignant melanoma, unspecified site (HCC) Gallbladder polyp Cholesterolosis of gallbladder [facility] assessment information available [facility] Work Phone: Evaluation note* Diagnosis Ureteral calculus- Primary Calculus of ureter documented in this encounter [facility] [place] Work Phone: Hospital Discharge instructions* Instructions* Briana Salcido RN - 09/14/2019 Recommendations: - Repeat colonoscopy in 10 years. - Recommend High-fiber diet, keep stools soft and regular, avoid constipation and straining, use Anusol/preparation H ointment/cream for hemorrhoids if/when symptomatic. - Follow up with primary care physician as previously scheduled * Attachments The following attachments cannot be sent through Care Everywhere. * Colonoscopy: Post-op ([place]) [facility] Discharge instructions* Attachments The following attachments cannot be sent through Care Everywhere. * Urinary Tract Infection, Adult ED ([place]) * Yan Catheter ([place]) [facility]: [facility] Discharge instructions* Attachments The following attachments cannot be sent through Care Everywhere. * Acute Cystitis Discharge Instructions ([place]) [facility] [place] [facility]: Reason for referral (narrative)No reason for referral information availableWParkview [facility] Work Phone: Reason for visit Narrative* Imaging (Routine) - Authorized Specialty Diagnoses / Procedures Referred By Roxanne t Referred To Contact Radiology Diagnoses History of kidney stones Procedures XR abdomen 1 view Isabela Bazan MD [address] [place] [address] Phone: tel: fax: Referral ID Status Reason Start Date Expiration Date Visits Requested Visits Authorized [id number] Authorized Perform Procedure 4 07/25/2025 1 1 [facility] [place] Work Phone: Reason for visit Narrative* Imaging (Routine) - Pending Review Specialty Diagnoses / Procedures Referred By Roxanne pearson Referred To Contact Radiology Diagnoses Gallbladder polyp Procedures US GALLBLADDER Kaylynn Walter MD [address] [address] Phone: tel: fax: Referral ID Status Reason Start Date Expiration Date V isits Requested Visits Authorized [id number] Pending Review 04/26/2025 04/26/2026 1 1 [facility] Diagnosis Bradycardia Other specified cardiac dysrhythmias Coronary artery disease invo lving [place] coronary artery of [place] heart without angina pectoris Dyslipidemia Other and unspecified hyperlipidemia Diagnosis PVC (premature ventricular contraction) Other premature beats Diagnosis Prostate cancer screening Special screening for malignant neoplasm of prostate Annual physical exam Routine general medical examination at a health care facility Diagnosis Annual physical exam Routine general medical examination at a health care facility Summary Purpose Family History No Family History Records FoundNo Family History Records FoundNo Family History Records FoundNo Family History Records FoundNo Family History Records FoundNo Family History Records FoundNo Family History Records FoundNo Family History Records FoundNo Family History Records FoundNo Family History Records FoundNo Family History Records FoundNo Family History Records FoundNo Family History Records FoundNo Family History Records FoundNo Family History Records Found Advance Directives Documents on File Type Date Recorded Patient Environmental Planner Expl anation Advance Directives and Living Will Power of Breastfeeding Program Coordinator Latest Code Status on File Code Status Date Activated Date Inactivated Comments Full Code 03/28/2018 5:49 PM 03/28/2018 8:48 PM Full Code 03/28/2018 11:18 AM 03/28/2018 1:58 PM Documents on File Type Date Recorded Patient Environmental Planner Expl anation ACP-Advance Directive ACP-Power of Breastfeeding Program Coordinator Latest Code Status on File Code Status Date Activated Date Inactivated Comments Full Code 03/28/2018 5:49 PM 03/28/2018 8:48 PM Full Code 03/28/2018 11:18 AM 03/28/2018 1:58 PM Documents on File Type Date Recorded Patient Environmental Planner Expl anation Advance Directives and Living Will Power of Breastfeeding Program Coordinator Documents on File Type Date Recorded Patient Environmental Planner Expl anation ACP-Advance Directive ACP-Power of Breastfeeding Program Coordinator Healthcare Agents on File Name Relationship Healthcare Agent Relationshi p Communication Jeanne Costa Spouse Primary Decision Maker Healthcare Agents on File Name Relationship Healthcare Agent Relationshi p Communication Jeanne Costa Spouse Primary Decision Maker Healthcare Agents on File Name Relationship Healthcare Agent Relationshi p Communication Jeanne Costa Spouse Primary Decision Maker [email or web address] Date Activated Date Inactivated Comments 08/17/2023 10:27 AM 08/17/2023 2:59 PM Date Activated Date Inactivated Comments 03/28/2018 5:49 PM 03/28/2018 8:48 PM Date Activated Date Inactivated Comments 03/28/2018 11:18 AM 03/28/2018 1:58 PM Healthcare Agents on File Name Relationship Healthcare Agent Relationshi p Communication Jeanne Costa Spouse Primary Decision Maker [email or web address] Date Activated Date Inactivated Comments 08/17/2023 10:27 AM 08/17/2023 2:59 PM Date Activated Date Inactivated Comments 03/28/2018 5:49 PM 03/28/2018 8:48 PM Date Activated Date Inactivated Comments 03/28/2018 11:18 AM 03/28/2018 1:58 PM Healthcare Agents on File Name Relationship Healthcare Agent Relationshi p Communication Jeanne Costa Spouse Primary Decision Maker [email or web address] Advance Directive Response Recorded Date/ Time Do you have a Healthcare Power of Breastfeeding Program Coordinator? Yes April 13, 2025 1:21pm Reason for Referral Status Reason Specialty Diagnoses / Procedures Referred By Contact Referred To Contact Pending Review Cardiology Diagnoses PVC (premature ventricular contraction) Procedures Holter monitor 24 hour Christofferson, Brain D, MD [address] [facility] [address] [place] [address] Status Reason Specialty Diagnoses / Procedures Referre d By Contact Referred To Contact Closed Cardiology Diagnoses THURMAN (dyspnea on exertion) Procedures ECHO Complete 2D [place] [address] [place] [address] [address] [place] [address] Status Reason Specialty Diagnoses / Procedures Referre d By Contact Referred To Contact Closed Radiology Diagnoses THURMAN (dyspnea on exertion) Procedures NM MYOCARDIAL SPECT REST [place] [address] [place] [address] [address] [place] [address] Specialty Diagnoses / Procedures Referred By Contac t Referred To Contact Radiology Diagnoses History of kidney stones Procedures XR abdomen 1 [place] [address] [place] [address] Referral ID Status Reason Start Date Expiration Date Visits Requested Visits Authorized [id number] Authorized Perform Procedure 10/07/2023 10/06/2024 1 1 Specialty Diagnoses / Procedures Referred By Contac t Referred To Contact Radiology Diagnoses History of kidney stones Procedures XR abdomen [place] [address] [place] [address] [facility] [facility] [address] [facility] [address] [place] [address] Specialty Diagnoses / Procedures Referred By Contac t Referred To Contact Diagnoses History of kidney stones Isabela Bazan MD [address] [place] [address] Referral ID Status Reason Start Date Expiration Date V isits Requested Visits Authorized [id number] Pending Review 1 1 Referral ID Status Reason Start Date Expiration Date Visits Requested Visits Authorized [id number] Authorized Perform Procedure 02/23/2024 02/22/2025 1 1 Referral ID Status Reason Start Date Expiration Date Visits Requested Visits Authorized [id number] Authorized Perform Procedure 02/23/2024 02/22/2025 1 1 Chief Complaint and Reason for Visit Chief Complaint Admit Date ESWL,Cystocopy Insertion Stent April 252024 10:55am Additional Source Comments (unrecognized sect ion and content) No Status Records FoundNo Status Records FoundNo Status Records FoundNo Status Records FoundNo Status Records FoundNo Status Records FoundNo Status Records FoundNo Status Records FoundNo Status Records FoundNo Status Records FoundNo Status Records FoundNo Status Records FoundNo Status Records FoundNo Status Records FoundNo Status Records Found INFORMATION SOURCE (unrecogn ized section and content) DATE CREATED AUTHOR 02/22/2018 [facility] DATE CREATED AUTHOR AUTHOR'S ORGANIZ ATION 04/11/2018 [facility] DATE CREATED AUTHOR AUTHOR'S ORGANIZ ATION 05/07/2018 [facility] DATE CREATED AUTHOR AUTHOR'S ORGANIZ ATION 06/09/2018 [facility] DATE CREATED AUTHOR AUTHOR'S ORGANIZ ATION 06/14/2018 [facility] DATE CREATED AUTHOR AUTHOR'S ORGANIZ ATION 06/14/2018 [facility] DATE CREATED AUTHOR AUTHOR'S ORGANIZ ATION 06/21/2018 [facility] DATE CREATED AUTHOR AUTHOR'S ORGANIZ ATION 01/05/2023 [facility] DATE CREATED AUTHOR AUTHOR'S ORGANIZ ATION 08/20/2023 [facility] DATE CREATED AUTHOR AUTHOR'S ORGANIZ ATION 09/19/2023 [facility] DATE CREATED AUTHOR AUTHOR'S ORGANIZ ATION 11/13/2023 [facility] DATE CREATED AUTHOR AUTHOR'S ORGANIZ ATION 09/16/2024 [facility] DATE CREATED AUTHOR AUTHOR'S ORGANIZ ATION 03/28/2025 [facility] DATE CREATED AUTHOR AUTHOR'S ORGANIZ ATION 04/13/2025 [facility] DATE CREATED AUTHOR AUTHOR'S ORGANIZ ATION 05/02/2025 [facility] Reason for Visit (unrecogniz ed section and content) Status Reason Specialty Diagnoses / Procedures Referred By Contact Referred To Contact Pending Review Cardiology Diagnoses PVC (premature ventricular contraction) Procedures Holter monitor 24 hour Brain Freedman MD [address] [facility] [address] [place] [address] Status Reason Specialty Diagnoses / Procedures Referre d By Contact Referred To Contact Open EKG Diagnoses Ventricular premature depolarization Procedures HOLTER MONITOR Brain Freedman MD [address] [facility] [address] [place] [address] [facility] [address] [place] [address] Reason Comments Hand Injury right hand pain and swelling x1hr s/p fall while playing basketball. motor and sensation intact, some numbness. On plavix. Status Reason Specialty Diagnoses / Procedures Referre d By Contact Referred To Contact Closed Radiology Diagnoses THURMAN (dyspnea on exertion) Procedures NM MYOCARDIAL SPECT REST EXERCISE OR RX Justin Espinoza MD [address] [address] Status Reason Specialty Diagnoses / Procedures Referre d By Contact Referred To Contact Closed Cardiology Diagnoses THURMAN (dyspnea on exertion) Procedures ECHO Complete 2D W Doppler W Color Justin Espinoza MD [address] [address] Status Reason Specialty Diagnoses / Procedures Referre d By Contact Referred To Contact Diagnoses Personal history of colonic polyps HISTORY OF COLON POLYPS Procedures MD COLONOSCOPY FLX DX W/COLLJ SPEC WHEN PFRMD COLONOSCOPY Familia Oliva MD [address] [place] [address] [facility] Reason Comments Medication Refill Reason Comments Establish Care Specialty Diagnoses / Procedures Referred By Contac t Referred To Contact Radiology Diagnoses History of kidney stones Procedures XR abdomen 1 view Isabela Bazan MD [address] [place] [address] [facility] [id number] [facility] [address] [facility] [address] [place] [address] Referral ID Status Reason Start Date Expiration Date Visits Requested Visits Authorized [id number] Authorized Perform Procedure 10/07/2023 10/06/2024 1 1 Reason Comments Blood in Urine Reason Comments Difficulty Urinating C/o difficulty urin ating x 5 days. Also c/o constipation x 3 days. Reason Comments Difficulty Urinating Reason Comments 1 week follow up Specialty Diagnoses / Procedures Referred By Contdasha t Referred To Contact Radiology Diagnoses History of kidney stones Procedures XR abdomen 1 view Isabela Bazan MD [address] [place] [address] Referral ID Status Reason Start Date Expiration Date Visits Requested Visits Authorized [id number] Authorized Perform Procedure 02/23/2024 02/22/2025 1 1 Reason Comments 2 MONTH WITH KUB Reason Comments 6 months with kub Reason Comments Blood in Urine Hematuria and primar radha L flank pain with generalized abd. pain since this AM. Hx of kidney stones, on plavix Reason Comments Vomiting Constipation Since recent kidney stone procedure (04/25) patient has been vomiting and having constipation. Unable to hold down fluids, home enema did not help. Care Teams (unrecognized sec tion and content) Assistant Professor Of German Relationship Specialty Start Date End Date Jarad Rey MD [address] [place] [address] PCP - General Family Medicine 01/13/18 Assistant Professor Of German Relationship Specialty Start Date End Date Jarad Rey MD [address] [place] [address] PCP - General Family Medicine 01/13/18 Assistant Professor Of German Relationship Specialty Start Date End Date Jarad Rey MD [address] [place] [address] PCP - General Family Medicine 01/13/18 Assistant Professor Of German Relationship Specialty Start Date End Date Aramis Beaulieu MD [address] [place] [id number] PCP - General 12/12/12 Assistant Professor Of German Relationship Specialty Start Date End Date Aramis Beaulieu MD [address] [place] [address] PCP - General 12/12/12 Assistant Professor Of German Relationship Specialty Start Date End Date Jarad Rey MD [address] [place] [address] PCP - General 08/30/17 Assistant Professor Of German Relationship Specialty Start Date End Date Jarad Rey MD [address] [place] [address] PCP - General 08/30/17 Assistant Professor Of German Relationship Specialty Start Date End Date Jarad Rey MD [address] [place] [address] PCP - General 08/30/17 Assistant Professor Of German Relationship Specialty Start Date End Date Jarad Rey MD [address] [place] [address] PCP - General 08/30/17 Assistant Professor Of German Relationship Specialty Start Date End Date Jarad Rey MD [address] [place] [address] PCP - General 08/30/17 Assistant Professor Of German Relationship Specialty Start Date End Date Jarad Rey MD [address] [place] [address] PCP - General 08/30/17 Assistant Professor Of German Relationship Specialty Start Date End Date Jarad Rey MD [address] [place] [address] PCP - General 08/30/17 Assistant Professor Of German Relationship Specialty Start Date End Date Jarad Rey MD [address] [place] [address] PCP - General 08/30/17 Assistant Professor Of German Relationship Specialty Start Date End Date Jarad Rey MD [address] [place] [address] PCP - General Family Medicine 01/13/18 Assistant Professor Of German Relationship Specialty Start Date End Date Jarad Rey MD [address] [place] [address] PCP - General 08/30/17 Assistant Professor Of German Relationship Specialty Start Date End Date Jarad Rey MD [address] [place] [address] PCP - General 08/30/17 Assistant Professor Of German Relationship Specialty Start Date End Date Jarad Rey MD [address] [place] [address] PCP - General 08/30/17 Assistant Professor Of German Relationship Specialty Start Date End Date Jarad Rey MD [address] [place] [address] PCP - General 08/30/17 Assistant Professor Of German Relationship Specialty Start Date End Date Jarad Rey MD [address] [place] [address] PCP - General Family Medicine 01/13/18 Team Status: Active Member Role/Relationship Status Dates Dr. Jarad Rey MD Primary Care Provider Active Team Status: Inactive Member Role/Relationship Status Dates Dr. Jarad Rey MD Primary Care Provider Active Start: April 10, 2025 End: April 10, 2025 Melba Barr Attending Provider Active Start : April 10, 2025 End: April 10, 2025 Melba Barr Referring Provider Active Start : April 10, 2025 End: April 10, 2025 Team Status: Inactive Member Role/Relationship Status Dates Dr. Jarad Rey MD Primary Care Provider Active Start: April 25, 2025 End: April 25, 2025 Dr. Harjit Lam MD Attending Provider Active Start: April 25, 2025 End: April 25, 2025 Dr. Harjit Lam MD Referring Provider Active Start: April 25, 2025 End: April 25, 2025 Assistant Professor Of German Relationship Specialty Start Date End Date Jarad Rey MD [address] [place] [address] PCP - General 08/30/17 Scheduled Active and Recently Administ ered Medications (unrecognized section and content) Medication Order 11/07/2023 11/08/2023 11/09/2023 cephalexin (Keflex) capsule 500 mg (COMPLETED) 500 mg, oral, Once, On Wed11/09/23 at 2019, For 1 dose, Suspected Indication (Select all that apply): Urinary Tract Infection, Type of Therapy: Definitive, No Cultures, Type of Urinary Tract Infection: Uncomplicated 2031 (Given - Provid er: Dago Castillo RN) phenazopyridine (Pyridium) tablet 200 mg (COMPLETED) 200 mg, oral, Once, On e 11/09/23 at 2019, For 1 dose, May discolor urine (orange). 2030 (Given - Provid er: Dago Castillo RN) Scheduled Medication Order 03/24/2025 03/25/2025 03/26/2025 ciprofloxacin (Cipro) 400 mg in dextrose 5% IV 200 mL (COMPLETED) 400 mg, intravenous, at 200 mL/hr, Administer over 60 Minutes, Once, On 03/25/25 at 2330, For 1 dose, premix bag, Dosing of this medication varies based on severity of illness. Does this patient have sepsis or concern for sepsis (probable or documented infection plus systemic manifestations of infection)? Yes, Suspected Indication (Select all that apply): Urinary Tract Infection, Type of Therapy: Empiric, Type of Urinary Tract Infection: Uncomplicated, Indications: Urinary Tract Infection 2338 (New Bag - Provider: Miko Marquez RN) 0041 (Stopped - Provider: Miko Marquez, RAFAL) sodium chloride 0.9 % bolus 1,000 mL (COMPLETED) 1,000 mL, intravenous, at 999 mL/hr, Administer over 1 Hours, Once, On 03/25/25 at 2150, For 1 dose 2204 (New Bag - Provider: Mitchell Pete RN)2312 (Stopped - Provider: Miko Marquez, RAFAL) Scheduled Medication Order 05/03/2025 05/04/2025 05/05/2025 iohexol (OMNIPaque) 350 mg iodine/mL solution 69 mL (COMPLETED) 69 mL, intravenous, Once in imaging, Starting on Wed05/04/25 at 2306, For 1 dose 230 (Given - Provider: Kathi Tinajero) levoFLOXacin (Levaquin) 500 mg in dextrose 5% IV 100 mL (COMPLETED) 500 mg, intravenous, at 100 mL/hr, Administer over 60 Minutes, Once, On 05/05/25 at 0040, For 1 dose, premix bag, Dosing of this medication varies based on severity of illness. Does this patient have sepsis or concern for sepsis (probable or documented infection plus systemic manifestations of infection)? No, Suspected Indication (Select all that apply): Urinary Tract Infection, Type of Therapy: Empiric, Type of Urinary Tract Infection: Uncomplicated, Indications: Urinary Tract Infection 0102 (New Bag - Provider: Mitchell Pete RN)0215 (Stopped - Provider: Yvette Fraser RN) morphine injection 4 mg (COMPLETED) 4 mg, intravenous, Once, On Wed05/04/25 at 2210, For 1 dose 223 (Given - Provider: Yvette Fraser RN) morphine injection 4 mg (COMPLETED) 4 mg, intravenous, Once, On 05/05/25 at 0110, For 1 dose 0132 (Given - Provid er: Mitchell Pete RN) ondansetron (Zofran) injection 4 mg (COMPLETED) 4 mg, intravenous, Once, On Wed05/04/25 at 2210, For 1 dose, When administering via IV Push, administer over 3-5 minutes. 2230 (Given - Provider: Yvette Fraser RN) sodium chloride 0.9 % bolus 1,000 mL (COMPLETED) 1,000 mL, intravenous, at 999 mL/hr, Administer over 1 Hours, Once, On Wed05/04/25 at 2210, For 1 dose 2229 (New Bag - Provider: Yvette Fraser RN) 0058 (Stopped - Provider: Yvette Fraser RN) Continuous Medication Order 05/03/2025 05/04/2025 05/05/2025 sodium chloride 0.9% infusion 150 mL/hr, intravenous, Continuous, Starting on Wed05/04/25 at 2210, For 1 day 2229 (New Bag - Provider: Yvette Fraser RN) 0134 (Rate/Dose Verify - Provider: Mitchell Pete RN)0336 (Stopped - Provider: Yvette Fraser RN) Goals (unrecognized section and content) Goals may be documented in a n alternate section FOR RECORDS PERTAINING TO PATIENTS WHO ARE OR HAVE BEEN ENROLLED IN A CHEMICAL DEPENDENCY/SUBSTANCEABUSE PROGRAM, SOME INFORMATION MAY BE OMITTED. This clinical summary was aggregated from multiple sources. Caution should be exercised in using it in the provision of clinical care. This summary normalizes information from multiple sources, and as a consequence, information in this document may materially change the coding, format and clinical context of patient data. In addition, data may be omitted in some cases. CLINICAL DECISIONS SHOULD BE BASED ON THE PRIMARY CLINICAL RECORDS. [email or web address] provides no warranty or guarantee of the accuracy or completeness of information in this document.
--- OUTSIDE RECORDS SUMMARY | 2025-05-05 04:30 | XMS RPT_ITS | CCD ---
Author Organization [facility] CliniSywa Care Team Providers Care 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 Name Role Phone Aramis Beaulieu Unavailable BARRETO, TRACE ETIENNE Unavailable Unavailable BEAULIEU, CHRISTOPHER [...] REY, JARAD Primary Care Unavailable Robb SKY, [facility] Primary Care Provider REY, JARAD Primary Care Unavailable ZAK ALVAREZ Attending Unavailable ISABELA BAZAN Referring Unavailable REY, JARAD Primary Care Unavailable REY, JARAD Referring Unavailable REY, JARAD Primary Care Unavailable KAYLYNN ASHTON Attending Unavailable KAYLYNN ASHTON Referring Unavailable REY, JARAD Primary Care Unavailable Robb SKY, Dr. Abraham Primary Care Provider [phone] KilkennyMelba Attending Provider [phone] [place]kenny, Melba Referring Provider Genaro SKY, Dr. Harjit Simms Attending Provider Genaro SKY, Dr. Harjit Simms Referring Provider Rey, Jarad Primary Care Unavailable Harijt Lam Referring Unavailable Harjit Lam Attending Unavailable Kilkenny, Melba Attending Unavailable Rey, Jarad Primary Care Unavailable Kilkenny, Melba Referring Unavailable Allergies Allergy Classification Reported Allergen(s) Allergy Type Date of Onset Reaction(s) Facility (1 source) No Known Allergies; Translations: [No Known Allergies] Propensity to adverse reactions to drug (disorder) [facility] Repository (1 source) No Known Medication Allergies; Translations: [No Known Medication Allergies] Propensity to adverse reactions to drug (disorder) [facility] Repository (2 sources) Sulfamethoxazole / Trimethoprim Drug Allergy 04-11-20 25 Nausea Only, Other, Drowsiness [facility] (2 sources) Sulfamethoxazole Drug Allergy 04-13-20 25 Nausea/Vom/Kaylin [facility] (2 sources) Trimethoprim Drug Allergy 04-13-20 25 Nausea/Vom/Kaylin [facility] (1 source) Sulfamethoxazole Drug Allergy 04-25-20 [facility] Repository (1 source) Trimethoprim Drug Allergy 04-25-20 [facility] Repository Medications Current Medications Medication Drug Class(es) [...] days. 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 TAKE 1 TABLET [...] MG tablet Indications: 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 TAKE 1 TABLET DAILY 90 tablet 3 06/11/2023 Active Start: 03-09-2022 clopidogrel (P LAVIX) 75 MG tablet Indications: 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 TAKE 1 TABLET DAILY 90 tablet 3 03/09/2022 Active Start: 06-12-2021 clopidogrel (P LAVIX) 75 MG tablet Indications: 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 TAKE 1 TABLET DAILY 90 tablet 3 06/12/2021 Active Start: 06-10-2020 clopidogrel (P LAVIX) 75 MG tablet Indications: 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 TAKE 1 TABLET [...] AFFECTED AREAS OF THE SCALP AND LEFT CATHOLIC TWICE DAILY FOR 3 WEEKS 04/24/2024 Active [...] MG tablet Indications: 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 TAKE 1 TABLET DAILY 90 tablet 3 03/09/2022 Active Start: 06-12-2021 losartan (COZA AR) 25 MG tablet Indications: 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 TAKE 1 TABLET DAILY 90 tablet 3 06/12/2021 Active Start: 06-10-2020 losartan (COZA AR) 25 MG tablet Indications: 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 TAKE 1 TABLET [...] SL tablet Indications: 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 Place 1 tablet under the tongue every 5 minutes as needed for Chest pain 25 tablet 06/11/2023 Active Start: 06-15-2022 nitroGLYCERIN (NITROSTAT) 0.4 MG SL tablet Indications: 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 Place 1 tablet under the tongue every 5 minutes as needed for Chest pain 25 tablet 0 06/15/2022 Active Start: 04-23-2015 nitroGLYCERIN (NITROSTAT) 0.4 MG SL tablet Indications: 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 Place 1 tablet [...] heart disease (20 sources) Coronary arteriosclerosis in quinault artery; Translations: [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] Onset: 6 [...] Unclassified (2 sources) Athscl heart disease of quinault coronary artery w/o ang pctrs / I25.10(ICD-9) [...] 05-04-2018 Unclassified (1 source) 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 Onset: 05-04-2018 Unclassified (16 sources) Onset: 10-07-2023 Resolved: 09-13-2024 10-07-2023 Results Test Name Value Interpretation Reference Range Facility CBC W Auto Differential pane l (Bld)on 05-04-2025 Basophils (Bld) [#/Vol] 0.03 10*3/uL [facility] Basophils/100 WBC (Bld) 0.3 % 0.0 - 2.0 % [facility] Eosinophils (Bld) [#/Vol] 0.04 10*3/uL [facility] Eosinophils/100 WBC (Bld) 0.3 % 0.0 - 6.0 % [facility] Erythrocyte distribution width (RBC) [Ratio] 13.1 % 11.5 - 14.5 % [facility] Hematocrit (Bld) [Volume fraction] 43.6 % 41.0 - 52.0 % [facility] Hemoglobin (Bld) [Mass/Vol] 14.8 g/dL 13.5 - 17.5 g/dL [facility] Immature granulocytes (Bld) [#/Vol] 0.04 10*3/uL [facility] Immature granulocytes/100 WBC (Bld) 0.3 % 0.0 - 0.9 % [facility] Comment on above: Immature Granulocyte Count (IG) includes promyelocytes, myelocytes and metamyelocytes but does not include bands. Percent differential counts (%) should be interpreted in the context of the absolute cell counts (cells/UL). Interpretation and review of laboratory results Abnormal [facility] Lymphocytes (Bld) [#/Vol] 1.25 10*3/uL [facility] Lymphocytes/100 WBC (Bld) 10.9 % 13.0 - 44.0 % [facility] MCH (RBC) [Entitic mass] 31.4 pg 26.0 - 34.0 pg [facility] MCHC (RBC) [Mass/Vol] 33.9 g/dL 32.0 - 36.0 g/dL [facility] MCV (RBC) [Entitic vol] 92 fL 80 - 100 fL [facility] Monocytes (Bld) [#/Vol] 0.82 10*3/uL [facility] Monocytes/100 WBC (Bld) 7.1 % 2.0 - 10.0 % [facility] Neutrophils (Bld) [#/Vol] 9.34 10*3/uL High [facility] Comment on above: Percent differential counts (%) should be interpreted in the context of the absolute cell counts (cells/uL). Neutrophils/100 WBC (Bld) 81.1 % 40.0 - 80.0 % [facility] Nucleated RBC/100 WBC (Bld) [Ratio] 0.0 % [facility] Platelets (Bld) [#/Vol] 190 10*3/uL [facility] RBC (Bld) [#/Vol] 4.72 10*6/uL [facility] WBC (Bld) [#/Vol] 11.5 10*3/uL [facility] CT Abdomen and Pelvis W cont [...] Andrew Sosa 05/04/2025 11:53 PM Dictation workstation: [id number] [facility] MMODAL Interpreted By: Andrew Curiel, STUDY: CT ABDOMEN PELVIS W IV CONTRAST; 05/04/2025 11:06 pm INDICATION: Signs/Symptoms:Abdominal pain, history of kidney stones, nausea or vomiting. COMPARISON: CT ABDOMEN PELVIS WO IV CONTRAST 03/25/2025 ACCESSION NUMBER(S): [id number] ORDERING CLINICIAN: ELICIA LOVE TECHNIQUE: Axial CT [...] right greater than left hip osteoarthritis. MMODAL Andrew Sosa, DO - 05/04/2025 Interpreted By: Andrew Sosa, STUDY: CT ABDOMEN PELVIS W IV CONTRAST; 05/04/2025 11:06 pm INDICATION: Signs/Symptoms:Abdominal pain, history of kidney stones, nausea or vomiting. COMPARISON: CT ABDOMEN PELVIS WO IV CONTRAST 03/25/2025 ACCESSION NUMBER(S): [id number] ORDERING CLINICIAN: ELICIA LOVE TECHNIQUE: Axial CT [...] Andrew Sosa 05/04/2025 11:53 PM Dictation workstation: [id number] [facility] Work Phone: Radiology Study observation (narrative) [facility] Work Phone: CT Abdomen and Pelvis W cont rast IVOrdered By: Andrew Sosa on 05-04-2025 [facility] Work Phone: Comprehensive metabolic 2000 panelon 05-04-2025 Albumin BCP dye [Mass/Vol] 4.0 g/dL 3.4 - 5.0 g/dL [facility] ALP [Catalytic activity/Vol] 138 U/L High 33 - 136 U/L [facility] ALT With P-5'-P [Catalytic activity/Vol] 15 U/L 10 - 52 U/L [facility] Comment on above: Patients treated wit h Sulfasalazine may generate falsely decreased results for ALT. Anion gap [Moles/Vol] 12 mmol/L 10 - 20 mmol/L [facility] AST With P-5'-P [Catalytic activity/Vol] 15 U/L 9 - 39 U/L [facility] Bilirubin [Mass/Vol] 1.6 mg/dL High 0.0 - 1 .2 mg/dL [facility] Calcium [Mass/Vol] 9.3 mg/dL 8.6 - 10. 3 mg/dL [facility] Chloride [Moles/Vol] 103 mmol/L 98 - 10 7 mmol/L [facility] CO2 [Moles/Vol] 25 mmol/L 21 - 32 mmol/L [facility] Creatinine [Mass/Vol] 1.60 mg/dL High 0.50 - 1.30 mg/dL [facility] GFR/1.73 sq M.predicted among non-blacks MDRD (S/P/Bld) [Vol rate/Area] 47 mL/min/{1.73_m2} Low - PINF [facility] Comment on above: Calculations of ashely mated GFR are performed using the 2020 CKD-EPI Study Refit equation without the race variable for the IDMS-Traceable creatinine methods. https://jasn.asnjournals.org/content/early/ASN.0156065 988 Glucose [Mass/Vol] 138 mg/dL High 74 - 99 mg/dL [facility] Interpretation and review of laboratory results Abnormal [facility] Potassium [Moles/Vol] 3.9 mmol/L 3.5 - 5.3 mmol/L [facility] Protein [Mass/Vol] 6.4 g/dL 6.4 - 8.2 g/dL [facility] Sodium [Moles/Vol] 136 mmol/L 136 - 145 mmol/L [facility] Urea nitrogen [Mass/Vol] 14 mg/dL 6 - 23 mg/dL [facility] Lactateon 05-04-2025 Lactate [Moles/Vol] 1.5 mmol/L 0.4 - 2. 0 mmol/L [facility] Lactate [Moles/Vol]on 2024 Interpretation and review of laboratory results Normal [facility] Venipuncture immedia tely after or during the administration of Metamizole may lead to falsely low results. Testing should be performed immediately prior to Metamizole dosing. [facility] Lipaseon 05-04-2025 Lipase [Catalytic activity/Vol] 12 U/L 9 - 82 U/L [facility] Lipase [Catalytic activity/V ol]on 05-04-2025 Interpretation and review of laboratory results Normal [facility] Venipuncture immedia tely after or during the administration of Metamizole may lead to falsely low results. Testing should be performed immediately prior to Metamizole dosing. [facility] No Panel Informationon 05-04 [facility] Urinalysis complete W Reflex Culture panel (U)on 05-04-2025 Appearance (U) Clear Clear [facility] Bilirubin (U) [Mass/Vol] Negative NEGATIVE mg/dL [facility] Color (U) Dark-Yellow Light-Yellow , Yellow, Dark-Yellow [facility] Glucose Auto test strip (U) [Mass/Vol] Normal Normal mg/dL [facility] Interpretation and review of laboratory results Abnormal [facility] Ketones (U) [Mass/Vol] Negative NEGATIVE mg/dL [facility] Leukocyte esterase Auto test strip Ql (U) Negative NEGATIVE [facility] Nitrite Auto test strip Ql (U) 1+ Abnormal NEGATIVE [facility] pH (U) 6.5 [pH] 5.0, 5.5, 6.0, 6.5, 7.0, 7.5, 8.0 [facility] Protein (U) [Mass/Vol] Negative NEGATIVE, 10 (TRACE), 20 (TRACE) mg/dL [facility] RBC (U) [#/Vol] Negative NEGATIVE mg/dL [facility] Specific gravity (U) [Rel density] 1.015 1.005 - 1.035 [facility] Urobilinogen (U) [Mass/Vol] Normal Normal mg/dL [facility] Urinalysis microscopic panel Auto Ql (U)on 05-04-2025 Interpretation and review of laboratory results Normal [facility] RBC Auto (Urine sed) [#/Area] NONE NONE, 1-2, 3-5 /HPF [facility] WBC Auto (Urine sed) [#/Area] 1-5 1-5, NONE /HPF [facility] Abdomen Single Viewon 2024 [facility] [address] [place] [address] [id number] Abdomen Single View MR#: [id number] Acct: [id number] Name: RAMON COSTA Rep #: [id number] : 1955 M 69 From: Kartik Bernal MD PCP: Jarad Rey MD Status: [place]P [facility] Study: Abdomen Single View Date of Exam: 04/25/25 Exam# [id number] Ordering Dr: Harjit Lam MD EXAM: XR [...] measuring up to 10 mm. Reading Location: [id number] CC: Dr. Harjit Lam MD; Jarad Rey MD Report Checker: Signed Normal [facility] Discharge Instructionon 03-31 Discharge Instruction [facility] Medical Records Department [address] [place] [address] Instructions for Home/Discharge Instructions 04/25/25 1547 MR#: [id number] Acct: [id number] Name: RAMON COSTA Rep #: [id number] : 1955 69 From: Harjit Lam MD [...] Up With: Harjit Lam MD When: Call [phone] for an appointment Test Results: Test results from this visit will be discussed in further detail at your follow-up appointment, if applicable. Discharge Plan Admission Primary Reason for Your Visit: ESWL Attending Provider: Harjit Lam Primary Care Provider: Jarad Rey Instructions Print Language: [place] Discharge Orders/Prescriptions Prescriptions: New ciprofloxacin HCl [Cipro] [...] with an KUB prior to appt. with id. 04/25/25 1547 Harjit Lam MD cc: Jarad Rey MD * Signed [facility] MR/POSTOP.[facility] 04-25-2025 MR/POSTOP.[facility] Medical Records Department [address] [place] [address] Anesthesia Postop Eval I 04/25/251646 MR#: [id number] Acct: [id number] Name: RAMON COSTA Rep #: [id number] : 1955 69 From: Gonzalo Saucedo CRNA PCP: Jarad Rey MD Status:REG SDC Y Race: C Location: [place] [address] Anesthesia: Postop Eval I Current Vital Signs [...] CRNA Cosigner Signature: Date CC: Signed Normal [facility] MR/[id number] 04-25-2025 MR/POSTOPAN2 [facility] Medical Records Department [address] [place] [address] Anesthesia Postop Eval II 04/25/251810 MR#: [id number] Acct: [id number] Name: RAMON COSTA Rep #: [id number] : 1955 69 From: Delonte Israel MD PCP: Jarad Rey MD Status:DEP [facility] Y Race: C [place] [facility] Anesthesia Postop Eval I Sum Postop Eval Completion status Anesthesia document: Postop Eval 1 completed: Yes Anesthesia Postop Eval I Summary Anesthesia Postop Eval I Summary: Anesthesia Postop Eval I: Assessment Summary Airway patent Yes 04/25/25 16:48 CERTIFIED MEDICAL CODING SPECIALIST.PKEL Spontaneous unlabored Yes 04/25/25 16:48 CERTIFIED MEDICAL CODING SPECIALIST.PKEL respirations Mental status Awake 04/25/25 16:48 CERTIFIED MEDICAL CODING SPECIALIST.PKEL nausea No 04/25/25 16:48 CERTIFIED MEDICAL CODING SPECIALIST.PKEL Vomiting No 04/25/25 16:48 CERTIFIED MEDICAL CODING SPECIALIST.PKEL Anesthesia Postop Eval I: Fluid Summary Crystalloid volume administer 900 04/25/25 16:48 CERTIFIED MEDICAL CODING SPECIALIST.PKEL (ml) Colloids volume administered ( ml) Blood Product volume administered (ml) Total IV fluid infused 900 04/25/25 16:48 CERTIFIED MEDICAL CODING SPECIALIST.PKEL Anesthesia Postop Eval I: Summary Notes Anesthesia Complication No 04/25/25 16:48 CERTIFIED MEDICAL CODING SPECIALIST.PKEL Anesthesia Complication Comment: Post-operative progress note Anesthesia: Postop Eval II Evaluation Mental status: Awake Pain Level: 0 nausea: No Vomiting: No Complications Anesthesia Complication: No 04/25/251810 Date Delonte Israel MD Cosigner Signature: Date CC: Signed [facility] Operative Reporton 5 Operative Report [facility] Medical Records Department [address] [place] [address] Operative Report 04/25/25 1620 MR#: [id number] Acct: [id number] Name: RAMON COSTA Rep #: [id number] : 1955 69 From: Harjit Lam MD PCP: Jarad eRy MD Status:REG [facility] [place]: [place] [address] Operative Report (Standard) Operative Information Date of Procedure: 04/25/25 Pre-Operative Diagnosis: Right kidney stones Post-Operative Diagnosis: same Surgery/Procedure Performed: Cystoscopy right stent placement and right ESWL sealer aircraft: No Type of Anesthesia: General RN Documented [...] in usual sterile fashion. Using a 21 Faroese rigid cystourethroscope the entire length of the urethra was normal then went into the bladder. Identified the trigone the left and right ureteral orifice. I then cannulated the right ureteral orifice and advanced a wire up into the kidney. I then backloaded a 5 Faroese open ended catheter over the wire and injected contrast to delineate the anatomy. After the retrograde was performed I then used fluoroscopic images and guidance to advanced a wire up into the kidney and over the 0.038 glidewire I advanced a 6 Faroese by 26 cm double pigtail stent. I [...] applicable): CC: Dr. Harjit Lam MD; Jarad Rye MD Signed [facility] MR/PAT.Gabrielle 04-13-2025 MR/PAT.[facility] Medical Records Department [address] [place] [address] PAT - Anesthesia 04/13/25 1443 MR#: [id number] Acct: [id number] Name: RAMON COSTA Rep #: [id number] : 1955 69 From: Can Donahue MD PCP: Jarad Rey MD Status:PRE SDC Y Race: C [place] [facility] Pre-Assessment Diagnosis/Proposed Procedure Planned Operative Procedure(s): BILAT ESWL CYSTO INSERTION STENT Anesthesia History Anesthesia History - attacher: Anesthesia History - attacher Hx Hospitalization No 04/13/25 13:21 Any Problems [...] take am of surgery PONV PONV - attacher: PONV - attacher Female No 04/13/25 13:21 HX of Motion Sickness No 04/13/25 13:21 HX of N/V After Surgery No 04/13/25 13:21 Non-Smoker Yes 04/13/25 13:21 Duration of Surgery greater Yes 04/13/25 13:21 than 60 minutes Number of Risk Factors 2 04/13/25 13:21 PONV Score Moderate Risk 04/13/25 13:21 Respiratory Assessment Respiratory Assessment - attacher: Respiratory Tract Infection Hx - attacher Hx Respiratory Tract Infection No 04/13/25 13:21 STOP Sleep Apnea STOP Sleep Apnea - attacher: STOP Sleep Apnea - attacher Hx Hypertension Yes: CONTROLLED WITH MED 04/13/25 [...] Tobacco Use History Tobacco Use History - attacher: Tobacco Use History - attacher Tobacco Use Smoking Status Never smoker 04/13/25 13:21 Hx Tobacco Use No 04/13/25 13:21 Years Smoking Packs Smoked per Day Smoking Cessation Date was within the last 15 years Hx Smoking Cessation Date Hx Smoking Cessation Counseling Hematologic Medial History Hematologic Hx - attacher: 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 Normal [facility] Abdomen Single Viewon 2024 Abdomen Single View [facility] Imaging Services [address] [place], [place] [address] Abdomen Single View MR#: [id number] Acct: [id number] Name: RAMON COSTA Rep #: [id number] : 1955 M 69 From: Aryan Guerrero MD PCP: Jarad Rey MD Status: REG CLI Study: Abdomen Single View Date of Exam: 04/10/25 Exam# [id number] Ordering Dr: Melba Barr PROCEDURE: ABDOMEN SINGLE [...] Bony structures show degenerative change Reading Location: [id number] CC: Jarad Rey MD; Melba Barr Report Checker: Signed Normal [facility] PSA,Total - Annual Screenon 04-10-2025 PSA,TOT SCREEN 2.38 ng/mL Normal 0.02-4.00 [facility] Comment on above: Result Comment: This test [...] values. Performed By: #### L [id number] #### [facility] [address] [place], [address] US GALLBLADDER RUQon 025 US GALLBLADDER RUQ EXAMINATION: RIGHT UPPER QUADRANT ULTRASOUND 04/09/2025 10:42 am COMPARISON: U/S abdomen limited 03/06/2024, CT abdomen/pelvis 08/10/2023 HISTORY: ORDERING SYSTEM PROVIDED HISTORY: Gallbladder polyp TECHNOLOGIST PROVIDED HISTORY: This procedure can be scheduled via [employer]. What reading provider will be dictating this [...] Cas Alexander MD 04/09/25 Final result Normal [facility] US Gallbladderon 04-09-2025 1. Diffuse hepatic steatosis. 2. Cholelithiasis without sonographic evidence of acute cholecystitis. 3. 0.6 cm gallbladder polyp. 4. Right renal cortical thinning. 5. 7.9 cm debris containing right renal cyst. [facility] RADIOLOGY EXAMINATION: RIGHT UPPER QUADRANT ULTRASOUND 04/09/2025 [...] 7.9 cm debris containing cyst. [facility] RADIOLOGY Cas Alexander MD - 04/09/2025 EXAMINATION: RIGHT UPPER QUADRANT ULTRASOUND 04/09/2025 10:42 am COMPARISON: U/S abdomen limited 03/06/2024, CT abdomen/pelvis 08/10/2023 HISTORY: ORDERING SYSTEM PROVIDED HISTORY: Gallbladder polyp TECHNOLOGIST PROVIDED HISTORY: This procedure can be scheduled via [employer]. What reading provider will be dictating this [...] 7.9 cm debris containing right renal cyst. [facility] Study [facility] (narrative) [facility] US GallbladderOrdered By: Robert Alexander on 04-09-2025 [facility] [employer] Work Phone: Bacteriaon 03-25-2025 Bacteria identified Cx Nom (U) Test: Urine Culture Specimen Source: Clean Catch/Voided Specimen Type: Urine Specimen Date: 03/25/20252250 Result Date: 03/27/2025804 Result Status: Final result Abnormal: No Resulting Lab: [facility] [id number] [place] [address] CULTURE No growth Normal [facility] Comment on above: Performed By: #### 6 30-4 #### SULLY Schmidt ([id number]) [facility] ([facility]) [address] [place] [address] Basic metabolic 2000 panelon 03-25-2025 Anion gap [Moles/Vol] 9 mmol/L Low 10 - 20 mmol/L [facility] Calcium [Mass/Vol] 8.8 mg/dL 8.6 - 10. 3 mg/dL [facility] Chloride [Moles/Vol] 106 mmol/L 98 - 10 7 mmol/L [facility] CO2 [Moles/Vol] 27 mmol/L 21 - 32 mmol/L [facility] Creatinine [Mass/Vol] 1.40 mg/dL High 0.50 - 1.30 mg/dL [facility] GFR/1.73 sq M.predicted among non-blacks MDRD (S/P/Bld) [Vol rate/Area] 55 mL/min/{1.73_m2} Low - PINF [facility] Comment on above: Calculations of ashely mated GFR are performed using the 2020 CKD-EPI Study Refit equation without the race variable for the IDMS-Traceable creatinine methods. https://jasn.asnjournals.org/content//ASN.2471589 988 Glucose [Mass/Vol] 105 mg/dL High 74 - 99 mg/dL [facility] Interpretation and review of laboratory results Abnormal [facility] Potassium [Moles/Vol] 3.8 mmol/L 3.5 - 5.3 mmol/L [facility] Sodium [Moles/Vol] 138 mmol/L 136 - 145 mmol/L [facility] Urea nitrogen [Mass/Vol] 12 mg/dL 6 - 23 mg/dL [facility] Anion gap [Moles/Vol] 9 mmol/L Low 10-20 [facility] Comment on above: Performed By: #### 2 4321-2 #### CHRISTIE WATSON ([id number]) [facility] ([facility]) [address] [place] [address] 73528 Calcium [Mass/Vol] 8.8 mg/dL Normal 8.6-10.3 [facility] Comment on above: Performed By: #### 2 4321-2 #### CHRISTIE WATSON ([id number]) [facility] ([facility]) [facility] [place] [address] Chloride [Moles/Vol] 106 mmol/L Normal 98-107 [facility] Comment on above: Performed By: #### 2 4321-2 #### CHRISTIE WATSON ([id number]) [facility] ([facility]) [address] [place] [address] 69255 CO2 [Moles/Vol] 27 mmol/L Normal 21-32 [facility] Comment on above: Performed By: #### 2 4321-2 #### CHRISTIE WATSON ([id number]) [facility] ([facility]) [facility] [place] [address] Creatinine [Mass/Vol] 1.40 mg/dL High 0.50-1.30 [facility] Comment on above: Performed By: #### 2 4321-2 #### CHRISTIE WATSON ([id number]) [facility] ([facility]) [address] [place] [address] 92150 Glomerular filtration rate 55 mL/min/1.73m*2 Low >60 [facility] Comment on above: Result Comment: Calc ulations of estimated GFR are performed using the 2020 CKD-EPI Study Refit equation without the race variable for the IDMS-Traceable creatinine methods. https://jasn.asnjournals.org/content/early//ASN.3574782 988 Performed By: #### 2 4321-2 #### CHRISTIE WATSON ([id number]) [facility] ([facility]) [address] [place] [address] 75358 Glucose [Mass/Vol] 105 mg/dL High 74-99 [facility] Comment on above: Performed By: #### 2 4321-2 #### CHRISTIE WATSON ([id number]) [facility] ([facility]) [address] [place] [address] 99975 Potassium [Moles/Vol] 3.8 mmol/L Normal 3.5-5.3 [facility] Comment on above: Performed By: #### 2 4321-2 #### CHRISTIE WATSON ([id number]) [facility] ([facility]) [address] [place] [address] 17484 Sodium [Moles/Vol] 138 mmol/L Normal 136-145 [facility] Comment on above: Performed By: #### 2 4321-2 #### CHRISTIE WATSON ([id number]) [facility] ([facility]) [address] [place] [address] 76112 Urea nitrogen [Mass/Vol] 12 mg/dL Normal 6-23 [facility] Comment on above: Performed By: #### 2 4321-2 #### CHRISTIE WATSON ([id number]) [facility] ([facility]) [address] [place] [address] CBC W Auto Differential pane l (Bld)on 03-25-2025 Basophils (Bld) [#/Vol] 0.04 10*3/uL [facility] Basophils/100 WBC (Bld) 0.4 % 0.0 - 2.0 % [facility] Eosinophils (Bld) [#/Vol] 0.23 10*3/uL [facility] Eosinophils/100 WBC (Bld) 2.5 % 0.0 - 6.0 % [facility] Erythrocyte distribution width (RBC) [Ratio] 14.0 % 11.5 - 14.5 % [facility] Hematocrit (Bld) [Volume fraction] 43.6 % 41.0 - 52.0 % [facility] Hemoglobin (Bld) [Mass/Vol] 14.7 g/dL 13.5 - 17.5 g/dL [facility] Immature granulocytes (Bld) [#/Vol] 0.02 10*3/uL [facility] Immature granulocytes/100 WBC (Bld) 0.2 % 0.0 - 0.9 % [facility] Comment on above: Immature Granulocyte Count (IG) includes promyelocytes, myelocytes and metamyelocytes but does not include bands. Percent differential counts (%) should be interpreted in the context of the absolute cell counts (cells/UL). Lymphocytes (Bld) [#/Vol] 2.64 10*3/uL [facility] Lymphocytes/100 WBC (Bld) 28.4 % 13.0 - 44.0 % [facility] MCH (RBC) [Entitic mass] 31.7 pg 26.0 - 34.0 pg [facility] MCHC (RBC) [Mass/Vol] 33.7 g/dL 32.0 - 36.0 g/dL [facility] MCV (RBC) [Entitic vol] 94 fL 80 - 100 fL [facility] Monocytes (Bld) [#/Vol] 0.87 10*3/uL [facility] Monocytes/100 WBC (Bld) 9.4 % 2.0 - 10.0 % [facility] Neutrophils (Bld) [#/Vol] 5.50 10*3/uL [facility] Comment on above: Percent differential counts (%) should be interpreted in the context of the absolute cell counts (cells/uL). Neutrophils/100 WBC (Bld) 59.1 % 40.0 - 80.0 % [facility] Nucleated RBC/100 WBC (Bld) [Ratio] 0.0 % [facility] Platelets (Bld) [#/Vol] 189 10*3/uL [facility] RBC (Bld) [#/Vol] 4.64 10*6/uL [facility] WBC (Bld) [#/Vol] 9.3 10*3/uL [facility] Basophils (Bld) [#/Vol] 0.04 x10*3/uL Normal 0.00-0.10 [facility] Comment on above: Performed By: #### 5 7021-8 #### CHRISTIE WATSON ([id number]) [facility] ([facility]) [address] [place] [address] 91822 Basophils/100 WBC (Bld) 0.4 % Normal 0.0-2.0 [facility] Comment on above: Performed By: #### 5 7021-8 #### CHRISTIE WATSON ([id number]) [facility] ([facility]) [address] [place] [address] 24350 Eosinophils (Bld) [#/Vol] 0.23 x10*3/uL Normal 0.00-0.70 [facility] Comment on above: Performed By: #### 5 7021-8 #### CHRISTIE WATSON ([id number]) [facility] ([facility]) [address] [place] [address] 36936 Eosinophils/100 WBC (Bld) 2.5 % Normal 0.0-6.0 [facility] Comment on above: Performed By: #### 5 7021-8 #### CHRISTIE WATSON ([id number]) [facility] ([facility]) [address] [place] [address] 87630 Erythrocyte distribution width (RBC) [Ratio] 14.0 % Normal 11.5-14.5 [facility] Comment on above: Performed By: #### 5 7021-8 #### CHRISTIE WATSON ([id number]) [facility] ([facility]) [address] [place] [address] 44816 Hematocrit (Bld) [Volume fraction] 43.6 % Normal 41.0-52.0 [facility] Comment on above: Performed By: #### 5 7021-8 #### CHRISTIE WATSON ([id number]) [facility] ([facility]) [address] [place] [address] 53100 Hemoglobin (Bld) [Mass/Vol] 14.7 g/dL Normal 13.5-17.5 [facility] Comment on above: Performed By: #### 5 7021-8 #### CHRISTIE WATSON ([id number]) [facility] ([facility]) [address] [place] [address] Immature granulocytes (Bld) [#/Vol] 0.02 x10*3/uL Normal 0.00-0.70 [facility] Comment on above: Performed By: #### 5 7021-8 #### CHRISTIE WATSON ([id number]) [facility] ([facility]) [address] [place], [place] [id number] Immature granulocytes/100 WBC (Bld) 0.2 % Normal 0.0-0.9 [facility] Comment on above: Result Comment: Reshma ture Granulocyte Count (IG) includes promyelocytes, myelocytes and metamyelocytes but does not include bands. Percent differential counts (%) should be interpreted in the context of the absolute cell counts (cells/UL). Performed By: #### 5 7021-8 #### CHRISTIE WATSON ([id number]) [facility] ([facility]) [address] [place] [address] 91744 Lymphocytes (Bld) [#/Vol] 2.64 x10*3/uL Normal 1.20-4.80 [facility] Comment on above: Performed By: #### 5 7021-8 #### CHRISTIE WATSON ([id number]) [facility] ([facility]) [address] [place] [address] 54882 Lymphocytes/100 WBC (Bld) 28.4 % Normal 13.0-44.0 [facility] Comment on above: Performed By: #### 5 7021-8 #### CHRISTIE WATSON ([id number]) [facility] ([facility]) [address] [place] [address] 44482 MCH (RBC) [Entitic mass] 31.7 pg Normal 26.0-34.0 [facility] Comment on above: Performed By: #### 5 7021-8 #### CHRISTIE WATSON ([id number]) [facility] ([facility]) [address] [place] [address] 23543 MCHC (RBC) [Mass/Vol] 33.7 g/dL Normal 32.0-36.0 [facility] Comment on above: Performed By: #### 5 7021-8 #### CHRISTIE WATSON ([id number]) [facility] ([facility]) [address] [place] [address] 86605 MCV (RBC) [Entitic vol] 94 fL Normal 80-100 [facility] Comment on above: Performed By: #### 5 7021-8 #### CHRISTIE WATSON ([id number]) [facility] ([facility]) [address] [place] [address] 43417 Monocytes (Bld) [#/Vol] 0.87 x10*3/uL Normal 0.10-1.00 [facility] Comment on above: Performed By: #### 5 7021-8 #### CHRISTIE WATSON ([id number]) [facility] ([facility]) [address] [place] [address] 03815 Monocytes/100 WBC (Bld) 9.4 % Normal 2.0-10.0 [facility] Comment on above: Performed By: #### 5 7021-8 #### CHRISTIE WATSON ([id number]) [facility] ([facility]) [address] [place] [address] 24112 Neutrophils (Bld) [#/Vol] 5.50 x10*3/uL Normal 1.20-7.70 [facility] Comment on above: Result Comment: Perc ent differential counts (%) should be interpreted in the context of the absolute cell counts (cells/uL). Performed By: #### 5 7021-8 #### CHRISTIE WATSON ([id number]) [facility] ([facility]) [address] [place] [address] 30410 Neutrophils/100 WBC (Bld) 59.1 % Normal 40.0-80.0 [facility] Comment on above: Performed By: #### 5 7021-8 #### CHRISTIE WATSON ([id number]) [facility] ([facility]) [address] [place] [address] 79135 Nucleated RBC/100 WBC (Bld) [Ratio] 0.0 /100 WBCs Normal 0.0-0.0 [facility] Comment on above: Performed By: #### 5 7021-8 #### CHRISTIE WATSON ([id number]) [facility] ([facility]) [address] [place] [address] 87849 Platelets (Bld) [#/Vol] 189 x10*3/uL Normal 150-450 [facility] Comment on above: Performed By: #### 5 7021-8 #### CHRISTIE WATSON ([id number]) [facility] ([facility]) [address] [place] [address] 26319 RBC (Bld) [#/Vol] 4.64 x10*6/uL Normal 4.50-5.90 [facility] Comment on above: Performed By: #### 5 7021-8 #### CHRISTIE WATSON ([id number]) [facility] ([facility]) [address] [place] [address] 04823 WBC (Bld) [#/Vol] 9.3 x10*3/uL Normal 4.4-11.3 [facility] Comment on above: Performed By: #### 5 7021-8 #### CHRISTIE WATSON ([id number]) [facility] ([facility]) [address] [place] [address] ABDOMEN PELVIS WO IV CONT Maricel 03-25-2025 CT ABDOMEN PELVIS WO IV CONTRAST Interpreted By: Ruano, Maykel, STUDY: CT ABDOMEN PELVIS WO IV CONTRAST; 03/25/2025 10:02 pm INDICATION: Signs/Symptoms:Hematuria history of kidney stones. COMPARISON: CT abdomen pelvis 08/10/2017. ACCESSION NUMBER(S): [id number] ORDERING CLINICIAN: ZAK ALAVREZ TECHNIQUE: CT of the abdomen and pelvis [...] Maykel Ruano 03/25/2025 10:47 PM Dictation workstation: [id number] [facility] CT Abdomen WO contraston 1. No acute abnormal ity in the abdomen/pelvis. Multiple bilateral intrarenal calculi without hydronephrosis or obstructive nephrolithiasis. Bilateral renal cysts. Prostatomegaly, clinical correlation for prostate etiology of hematuria recommended. 2. Cholelithiasis without cholecystitis. Hepatomegaly. Signed by: Maykel Ruano 03/25/2025 10:47 PM Dictation workstation: [id number] MMODAL Interpreted By: Maykel Handley, STUDY: CT ABDOMEN PELVIS WO IV CONTRAST; 03/25/2025 10:02 pm INDICATION: Signs/Symptoms:Hematuria history of kidney stones. COMPARISON: CT abdomen pelvis 08/10/2017. ACCESSION NUMBER(S): [id number] ORDERING CLINICIAN: ZAK ALVAREZ TECHNIQUE: CT of [...] COMPARISON: CT abdomen pelvis 08/10/2017. ACCESSION NUMBER(S): [id number] ORDERING CLINICIAN: ZAK ALVAREZ TECHNIQUE: CT of [...] Maykel Ruano 03/25/2025 10:47 PM Dictation workstation: [id number] [facility] Work Phone: Radiology Study observation (narrative) [facility] Work Phone: CT Abdomen WO contrastOrdere d By: Maykel Ruano on 03-25-2025 [facility] Work Phone: No Panel Informationon 03-25 Interpretation and review of laboratory results Abnormal [facility] Urinalysis complete W Reflex Culture panel (U)on 03-25-2025 Appearance (U) Turbid Abnormal Clear [facility] Bilirubin (U) [Mass/Vol] Negative NEGATIVE mg/dL [facility] Color (U) Light-Brown Abnormal Light-Yellow , Yellow, Dark-Yellow [facility] Glucose Auto test strip (U) [Mass/Vol] Normal Normal mg/dL [facility] Ketones (U) [Mass/Vol] Negative NEGATIVE mg/dL [facility] Leukocyte esterase Auto test strip Ql (U) 250 Javad/uL Abnormal NEGATIVE [facility] Nitrite Auto test strip Ql (U) Negative NEGATIVE [facility] pH (U) 6.5 [pH] 5.0, 5.5, 6.0, 6.5, 7.0, 7.5, 8.0 [facility] Protein (U) [Mass/Vol] 30 (1+) Abnormal NEGATIVE, 10 (TRACE), 20 (TRACE) mg/dL [facility] RBC (U) [#/Vol] OVER (3+) Abnormal NEGATIVE mg/dL [facility] Specific gravity (U) [Rel density] 1.012 1.005 - 1.035 [facility] Urobilinogen (U) [Mass/Vol] Normal Normal mg/dL [facility] OVER is reported whe n the result is greater than the clinically reportable range. [facility] Appearance (U) Turbid Normal Clear [facility] Comment on above: Order Comment: OVER is reported when the result is greater than the clinically reportable range. Performed By: #### 5 8077-9 #### CHRISTIE WATSON ([id number]) [facility] ([facility]) [address] [place] [address] Bilirubin (U) [Mass/Vol] Negative Normal NEGATIVE [facility] Comment on above: Order Comment: OVER is reported when the result is greater than the clinically reportable range. Performed By: #### 5 8077-9 #### CHRISTIE WATSON ([id number]) [facility] ([facility]) [address] [place] [address] Color (U) Light-Brown Normal Light-Yellow , Yellow, Dark-Yellow [facility] Comment on above: Order Comment: OVER is reported when the result is greater than the clinically reportable range. Performed By: #### 5 8077-9 #### CHRISTIE WATSON ([id number]) [facility] ([facility]) [address] [place] [address] Glucose Auto test strip (U) [Mass/Vol] Normal Normal Normal [facility] Comment on above: Order Comment: OVER is reported when the result is greater than the clinically reportable range. Performed By: #### 5 8077-9 #### CHRISTIE WATSON ([id number]) [facility] ([facility]) [address] [place] [address] Ketones (U) [Mass/Vol] Negative Normal NEGATIVE [facility] Comment on above: Order Comment: OVER is reported when the result is greater than the clinically reportable range. Performed By: #### 5 8077-9 #### CHRISTIE WATSON ([id number]) [facility] ([facility]) [address] [place], [place] [id number] Leukocyte esterase Auto test strip Ql (U) 250 Javad/uL Abnormal NEGATIVE [facility] Comment on above: Order Comment: OVER is reported when the result is greater than the clinically reportable range. Performed By: #### 5 8077-9 #### CHRISTIE WATSON ([id number]) [facility] ([facility]) [address] [place] [address] Nitrite Auto test strip Ql (U) Negative Normal NEGATIVE [facility] Comment on above: Order Comment: OVER is reported when the result is greater than the clinically reportable range. Performed By: #### 5 8077-9 #### CHRISTIE WATSON ([id number]) [facility] ([facility]) [address] [place] [address] 58607 pH (U) 6.5 [pH] Normal 5.0, 5.5, 6.0, 6.5, 7.0, 7.5, 8.0 [facility] Comment on above: Order Comment: OVER is reported when the result is greater than the clinically reportable range. Performed By: #### 5 8077-9 #### CHRISTIE WATSON ([id number]) [facility] ([facility]) [address] [place] [address] 27253 Protein (U) [Mass/Vol] 30 (1+) Abnormal NEGATIVE, 10 (TRACE), 20 (TRACE) [facility] Comment on above: Order Comment: OVER is reported when the result is greater than the clinically reportable range. Performed By: #### 5 8077-9 #### CHRISTIE WATSON ([id number]) [facility] ([facility]) [address] [place] [address] 21982 RBC (U) [#/Vol] OVER (3+) Abnormal NEGATIVE [facility] Comment on above: Order Comment: OVER is reported when the result is greater than the clinically reportable range. Performed By: #### 5 8077-9 #### CHRISTIE WATSON ([id number]) [facility] ([facility]) [address] [place] [address] 67559 Specific gravity (U) [Rel density] 1.012 Normal 1.005-1.035 [facility] Comment on above: Order Comment: OVER is reported when the result is greater than the clinically reportable range. Performed By: #### 5 8077-9 #### CHRISTIE WATSON ([id number]) [facility] ([facility]) [address] [place] [address] 84737 Urobilinogen (U) [Mass/Vol] Normal Normal Normal [facility] Comment on above: Order Comment: OVER is reported when the result is greater than the clinically reportable range. Performed By: #### 5 8077-9 #### CHRISTIE WATSON ([id number]) [facility] ([facility]) [address] [place] [address] Urinalysis microscopic panel Auto Ql (U)on 03-25-2025 Bacteria Auto (Urine sed) [#/Area] 1+ Abnormal NONE SEEN /HPF [facility] Mucus Auto (Urine sed) [#/Area] FEW Reference range not established. /LPF [facility] RBC Auto (Urine sed) [#/Area] >20 Abnormal NONE, 1-2, 3-5 /HPF [facility] WBC Auto (Urine sed) [#/Area] 21-50 Abnormal 1-5, NONE /HPF [facility] Bacteria Auto (Urine sed) [#/Area] 1+ /HPF Abnormal NONE SEEN [facility] Comment on above: Performed By: #### 5 3315-8 #### CHRISTIE WATSON ([id number]) [facility] ([facility]) [address] [place] [address] Mucus Auto (Urine sed) [#/Area] FEW Normal Reference range not established. [facility] Comment on above: Performed By: #### 5 3315-8 #### CHRISTIE WATSON ([id number]) [facility] ([facility]) [address] [place] [address] RBC Auto (Urine sed) [#/Area] >20 Abnormal NONE, 1-2, 3-5 [facility] Comment on above: Performed By: #### 5 3315-8 #### CHRISTIE WATSON ([id number]) [facility] ([facility]) [address] [place] [address] WBC Auto (Urine sed) [#/Area] 21-50 Abnormal 1-5, NONE [facility] Comment on above: Performed By: #### 5 3315-8 #### CHRISTIE WATSON ([id number]) [facility] ([facility]) [address] [place] [address] XR ABDOMEN 1 VIEWon 01-15-20 25 XR ABDOMEN 1 VIEW Interpreted By: Estela Herrera, STUDY: XR ABDOMEN 1 VIEW; 09/13/2024 10:05 am. 2 views. INDICATION: Signs/Symptoms:KIDNEY STONES. COMPARISON: 02/23/2024 ACCESSION NUMBER(S): [id number] ORDERING CLINICIAN: ISABELA BAZAN FINDINGS: Bowel gas [...] Estela Elkins 09/15/2024 8:10 AM Dictation workstation: [id number] [facility] Hemoglobin A1Con 06-27-2024 Glucose [Mass/Vol] 103 mg/dL Normal [facility] Comment on above: Result Comment: The ADA and AACC recommend providing the estimated average glucose result to permit better patient understanding of their HBA1c result. Performed at [facility], [address] [place], [place] [address] . HbA1c (Bld) [Mass fraction] 5.2 % Normal 4.0-6.0 [facility] Comprehensive Metabolic Pane l Fastingon 06-26-2024 Anion gap [Moles/Vol] 8 mmol/L Low 9-15 Bon [facility] Comment on above: Performed By: #### C MPF #### [facility] [address] [place] [address] Albumin [Mass/Vol] 4.1 g/dL Normal 3.5-4.6 [facility] Comment on above: Performed By: #### C MPF #### [facility] [address] [place] [address] ALP [Catalytic activity/Vol] 124 U/L Critically high 35-104 [facility] Comment on above: Performed By: #### C MPF #### [facility] [address] [place] [address] ALT [Catalytic activity/Vol] 8 U/L Normal 0-41 [facility] Comment on above: Performed By: #### C MPF #### [facility] [address] [place] [address] AST [Catalytic activity/Vol] 19 U/L Normal 0-40 [facility] Comment on above: Performed By: #### C MPF #### [facility] [address] [place] [address] Bilirubin [Mass/Vol] 1.2 mg/dL Critically high 0.2-0.7 [facility] Comment on above: Performed By: #### C MPF #### [facility] [address] [place] [address] Calcium [Mass/Vol] 9.2 mg/dL Normal 8.5-9.9 [facility] Comment on above: Performed By: #### C MPF #### [facility] [address] [place] [address] Chloride [Moles/Vol] 107 mmol/L Normal 95-107 [facility] Comment on above: Performed By: #### C MPF #### [facility] [address] [place] [address] CO2 [Moles/Vol] 26 mmol/L Normal 20-31 [facility] Comment on above: Performed By: #### C MPF #### [facility] [address] [place] [address] Creatinine [Mass/Vol] 1.05 mg/dL Normal 0.70-1.20 [facility] Comment on above: Performed By: #### C MPF #### [facility] [address] [place] [address] GFR 77.5 Normal >60 [facility] Comment on above: Result Comment: Yoselin atric [...] secretion. Performed By: #### C MPF #### [facility] [address] [place] [address] Globulin (S) [Mass/Vol] 2.3 g/dL Normal 2.3-3.5 [facility] Comment on above: Performed By: #### C MPF #### [facility] [address] [place] [address] Glucose [Mass/Vol] 97 mg/dL Normal 70-99 [facility] Comment on above: Performed By: #### C MPF #### [facility] [address] [place] [address] Potassium [Moles/Vol] 4.5 mmol/L Normal 3.4-4.9 [facility] Comment on above: Performed By: #### C MPF #### [facility] [address] [place] [address] Protein [Mass/Vol] 6.4 g/dL Normal 6.3-8.0 [facility] Comment on above: Performed By: #### C MPF #### [facility] [address] [place] [address] Sodium [Moles/Vol] 141 mmol/L Normal 135-144 [facility] Comment on above: Performed By: #### C MPF #### [facility] [address] [place] [address] Urea nitrogen [Mass/Vol] 12 mg/dL Normal 8-23 [facility] Comment on above: Performed By: #### C MPF #### [facility] [address] [place] [address] Comprehensive metabolic 2000 panelon 06-26-2024 Albumin [Mass/Vol] 4.1 g/dL 3.5 - 4.6 g/dL [facility] ALP [Catalytic activity/Vol] 124 U/L High 35 - 104 U/L [facility] ALT [Catalytic activity/Vol] 8 U/L 0 - 41 U/L [facility] AST [Catalytic activity/Vol] 19 U/L 0 - 40 U/L [facility] Bilirubin [Mass/Vol] 1.2 mg/dL High 0.2 - 0 .7 mg/dL [facility] Calcium [Mass/Vol] 9.2 mg/dL 8.5 - 9.9 mg/dL [facility] Chloride [Moles/Vol] 107 mmol/L [facility] CO2 [Moles/Vol] 26 mmol/L [facility] Creatinine [Mass/Vol] 1.05 mg/dL 0.70 - 1.20 mg/dL [facility] GFR/1.73 sq M.predicted among non-blacks MDRD (S/P/Bld) [Vol rate/Area] 77.5 mL/min/{1.73_m2} 60 - PINF [facility] Comment on above: Pediatric calculator link https://www.kidney.org/professionals/kdoqi/gfr_calculatorped [...] [Mass/Vol] 2.3 g/dL 2.3 - 3.5 g/dL [facility] Glucose [Mass/Vol] 97 mg/dL 70 - 99 mg/dL [facility] Potassium [Moles/Vol] 4.5 mmol/L [facility] Protein [Mass/Vol] 6.4 g/dL 6.3 - 8.0 g/dL [facility] Sodium [Moles/Vol] 141 mmol/L [facility] Urea nitrogen [Mass/Vol] 12 mg/dL 8 - 23 mg/dL [facility] Lipid Panel Fastingon 2023 Cholesterol [Mass/Vol] 113 mg/dL Normal 0-199 [facility] Comment on above: ATP III Cholesterol classification is Desirable. Result Comment: ATP III Cholesterol classification is Desirable. Performed By: #### L IPDF #### [facility] [address] [facility] [place] [address] HDL Cholesterol Fasting 33 mg/dL Low 40-59 [facility] Comment on above: Result Comment: ATP III [...] CHD Performed By: #### L IPDF #### [facility] [address] [place] [address] LDL Cholesterol (Calculated) Fasting 67 mg/dL Normal 0-129 [facility] Comment on above: Result Comment: ATP III LDL Classification is Optimal. Performed By: #### L IPDF #### [facility] [address] [place] [address] Triglycerides Fasting 65 mg/dL Normal 0-150 [facility] Comment on above: Result Comment: ATP III Triglycerides Classification is Normal. Performed By: #### L IPDF #### [facility] [address] [place] [address] Lipid, Fastingon 06-26-2024 Cholesterol in HDL [Mass/Vol] 33 mg/dL Low 40 - 59 mg/dL [facility] Comment on above: ATP III HDL Cholestr [...] [Mass/Vol] 67 mg/dL 0 - 129 mg/dL [facility] [employer] Comment on above: ATP III LDL Classifi cation is Optimal. Triglyceride, Fasting 65 mg/dL 0 - 150 mg/dL [facility] Comment on above: ATP III Triglyceride s Classification is Normal. No Panel Informationon 06-26 Interpretation and review of laboratory results Abnormal [facility] XR Abdomen Single viewon 1. Multiple calcific ations in the right kidney in the lower and midportions and 1 calcification in the lower pole of the left kidney. Findings unchanged from 10/07/2023. MACRO: None Signed by: Sundar Jacobsen 02/23/2024 3:35 PM Dictation workstation: [id number] COLTON Interpreted By: Sundar Smith, STUDY: XR ABDOMEN 1 VIEW; 02/23/2024 10:34 am INDICATION: Signs/Symptoms:KIDNEY STONES. COMPARISON: 10/07/2023 ACCESSION NUMBER(S): [id number] ORDERING CLINICIAN: ISABELA BAZAN FINDINGS: Nonobstructive bowel [...] INDICATION: Signs/Symptoms:KIDNEY STONES. COMPARISON: 10/07/2023 ACCESSION NUMBER(S): [id number] ORDERING CLINICIAN: ISABELA BAZAN FINDINGS: Nonobstructive bowel [...] Sundar Jacobsen 02/23/2024 3:35 PM Dictation workstation: [id number] [facility] Work Phone: [phone] Radiology Study observation (narrative) [facility] Work Phone: [phone] XR Abdomen Single viewOrdere d By: Sundar Jacobsen on 02-23-2024 [facility] Work Phone: POCT UA Automated manually r esultedon 12-16-2023 Appearance (U) Clear Clear [facility] Work Phone: [phone] Glucose Test strip (U) [Mass/Vol] Negative NEGATIVE mg/dl [facility] Work Phone: [phone] Hemoglobin Ql (U) SMALL (1+) Abnormal NEGATIVE [facility] Work Phone: [phone] Interpretation and review of laboratory results Abnormal [facility] Work Phone: [phone] Leukocyte esterase Test strip Ql (U) TRACE Abnormal NEGATIVE [facility] Work Phone: [phone] Nitrite Ql (U) Negative NEGATIVE [facility] Work Phone: [phone] pH (U) 7.0 [pH] No Reference Range Established [facility] Work Phone: [phone] POC Bilirubin, Urine Negative NEGATIVE [facility] Work Phone: [phone] POC Color, Urine Yellow Straw, Yellow, Light-Yellow [facility] Work Phone: [phone] POC Ketones, Urine Negative NEGATIVE mg/dl [facility] Work Phone: [phone] POC Protein, Urine Negative NEGATIVE, 30 (1+) mg/dl [facility] Work Phone: POC Specific [place], Urine 1.020 1.005 - 1.035 [facility] Work Phone: POC Urobilinogen, Urine 0.2 0.2, 1.0 EU/DL [facility] Work Phone: [facility] Work Phone: No Panel Informationon 11-08 Interpretation and review of laboratory results Abnormal [facility] Urinalysis complete W Reflex Culture panel (U)on 11-09-2023 Appearance (U) Hazy Abnormal Clear [facility] Bilirubin (U) [Mass/Vol] Negative NEGATIVE [facility] Color (U) Yellow Straw, Yellow [facility] Glucose Auto test strip (U) [Mass/Vol] Negative NEGATIVE mg/dL [facility] Ketones (U) [Mass/Vol] Negative NEGATIVE mg/dL [facility] Leukocyte esterase Auto test strip Ql (U) MODERATE (2+) Abnormal NEGATIVE [facility] Nitrite Auto test strip Ql (U) Negative NEGATIVE [facility] pH (U) 6.0 [pH] 5.0, 5.5, 6.0, 6.5, 7.0, 7.5, 8.0 [facility] Protein (U) [Mass/Vol] 30 (1+) Abnormal NEGATIVE mg/dL [facility] RBC (U) [#/Vol] Negative NEGATIVE [facility] Specific gravity (U) [Rel density] 1.015 1.005 - 1.035 [facility] Urobilinogen (U) [Mass/Vol] mg/dL NINF - 2.0 mg/dL [facility] Urinalysis microscopic panel Auto Ql (U)on 11-09-2023 Bacteria Auto (Urine sed) [#/Area] 3+ Abnormal NONE SEEN /HPF [facility] Leukocyte clumps Auto (Urine sed) [#/Area] OCCASIONAL Reference range not established. /HPF [facility] Mucus Auto (Urine sed) [#/Area] 4+ Reference range not established. /LPF [facility] RBC Auto (Urine sed) [#/Area] 11-20 Abnormal NONE, 1-2, 3-5 /HPF [facility] WBC Auto (Urine sed) [#/Area] >50 Abnormal 1-5, NONE /HPF [facility] Bacteria identifiedon 2023 Bacteria identified Cx Nom (U) Test: Urine Culture Specimen Source: Clean Catch/Voided Specimen Type: Urine Specimen Date: 11/08/2023 12:19 PM Result Date: 11/10/2023 7:53 AM Result Status: Final result Abnormal: No Resulting Lab: [facility] [id number] [place], [place] [id number] CULTURE No significant growth Normal [facility] Comment on above: Performed By: #### 6 30-4 #### SULLY Schmidt ([id number]) [facility] ([facility]) [address] [place] [address] POCT UA Automated manually r esultedon 10-07-2023 Appearance (U) Clear Clear [facility] Work Phone: [phone] Glucose Test strip (U) [Mass/Vol] Negative NEGATIVE mg/dl [facility] Work Phone: [phone] Hemoglobin Ql (U) MODERATE (2+) Abnormal NEGATIVE [facility] Work Phone: [phone] Interpretation and review of laboratory results Abnormal [facility] Work Phone: [phone] Leukocyte esterase Test strip Ql (U) TRACE Abnormal NEGATIVE [facility] Work Phone: [phone] Nitrite Ql (U) Negative NEGATIVE [facility] Work Phone: [phone] pH (U) 7.0 [pH] No Reference Range Established [facility] Work Phone: [phone] POC Bilirubin, Urine Negative NEGATIVE [facility] Work Phone: [phone] POC Color, Urine Yellow Straw, Yellow, Light-Yellow [facility] Work Phone: POC Ketones, Urine Negative NEGATIVE mg/dl [facility] Work Phone: POC Protein, Urine Negative NEGATIVE, 30 (1+) mg/dl [facility] Work Phone: POC Specific [place], Urine 1.020 1.005 - 1.035 [facility] Work Phone: POC Urobilinogen, Urine 0.2 0.2, 1.0 EU/DL [facility] Work Phone: [facility] Work Phone: Prostate specific Agon 10-07 Prostate specific Ag [Mass/Vol] 1.98 ng/mL Normal <=4.00 [facility] Comment on above: Order Comment: The DA requires that the method used for PSA assay be reported to the physician. Values obtained with different assay methods must not be used interchangeably. This test was performed at [facility] using the [employer] PSA assay is a two-site immunoenzymatic sandwich assay. The assay is approved for measurement of prostate-specific antigen (PSA)in serum and may be used in conjunction with a digital rectal examination in men 50 years and older as an aid in detection of prostate cancer. 1-Tcbjs-nnmkbzjpv inhibitors (e.g. Proscar, Finasteride, Avodart, Dutasteride and Lianne) for the treatment of BPH have been shown to lower PSA levels by an average of 50% after 6 months of treatment. Performed By: #### 2 857-1 #### SORIANO SHIRLEY ([id number]) [facility] ([facility]) [address] [place] [address] Gammaglutamyl Transon 2023 Amylase [Catalytic activity/Vol] 13 U/L Normal 8-61 [facility] Comment on above: Result Comment: Perf ormed at [facility], [address] [place] [phone] . Surgical Specimenon 08-17-20 Surgical Specimen [facility] Services [facility] [place] [address] FINAL SURGICAL PATHOLOGY REPORT Patient Name: RAMON COSTA Accession No: [id number] Age Sex: 1955 Location: [facility] GCORPOO NON Account No: [id number] Collected: 08/17/2023 [facility] Rec No: [id number] Received: 08/18/2023 Attend Phys: YASMANY SMITH Completed: [...] Submitted together in one cassette. PSW/BEH CPT: 05088 X5 05214 X2 TIMO PARK M.D. 08/19/2023 Electronically signed out by Page 1 of [address] [facility] Comment on above: Performed By: #### S UR #### [facility] [address] [place] [id number] Comprehensive Metabolic Pane l Fastingon 06-11-2023 Albumin [Mass/Vol] 4.2 g/dL Normal 3.5-4.6 [facility] Comment on above: Performed By: #### C MPF #### [facility] [address] [place] [address] ALP [Catalytic activity/Vol] 139 U/L Critically high 35-104 [facility] Comment on above: Performed By: #### C MPF #### [facility] [address] [place] [address] ALT [Catalytic activity/Vol] 14 U/L Normal 0-41 [facility] Comment on above: Performed By: #### C MPF #### [facility] [address] [place] [address] Anion gap [Moles/Vol] 11 mmol/L Normal 9-15 [facility] Comment on above: Performed By: #### C MPF #### [facility] [address] [place] [address] AST [Catalytic activity/Vol] 19 U/L Normal 0-40 [facility] Comment on above: Performed By: #### C MPF #### [facility] [address] [place] [address] Bilirubin [Mass/Vol] 1.0 mg/dL Critically high 0.2-0.7 [facility] Comment on above: Performed By: #### C MPF #### [facility] [address] [place] [address] Calcium [Mass/Vol] 9.1 mg/dL Normal 8.5-9.9 [facility] Comment on above: Performed By: #### C MPF #### [facility] [address] [place] [address] Chloride [Moles/Vol] 106 mmol/L Normal 95-107 [facility] Comment on above: Performed By: #### C MPF #### [facility] [address] [place] [address] CO2 [Moles/Vol] 25 mmol/L Normal 20-31 [facility] Comment on above: Performed By: #### C MPF #### [facility] [address] [place] [address] Creatinine [Mass/Vol] 0.99 mg/dL Normal 0.70-1.20 [facility] Comment on above: Performed By: #### C MPF #### [facility] [address] [place] [address] GFR >60.0 Normal >60 [facility] Comment on above: Result Comment: Yoselin atric [...] secretion. Performed By: #### C MPF #### [facility] [address] [place] [address] Globulin (S) [Mass/Vol] 2.3 g/dL Normal 2.3-3.5 [facility] Comment on above: Performed By: #### C MPF #### [facility] [address] [place] [address] Glucose [Mass/Vol] 103 mg/dL Critically high 70-99 [facility] Comment on above: Performed By: #### C MPF #### [facility] [address] [place] [address] Potassium [Moles/Vol] 4.4 mmol/L Normal 3.4-4.9 [facility] Comment on above: Performed By: #### C MPF #### [facility] [address] [place] [address] Protein [Mass/Vol] 6.5 g/dL Normal 6.3-8.0 [facility] Comment on above: Performed By: #### C MPF #### [facility] [address] [place] [address] Sodium [Moles/Vol] 142 mmol/L Normal 135-144 [facility] Comment on above: Performed By: #### C MPF #### [facility] [address] [place] [address] Urea nitrogen [Mass/Vol] 11 mg/dL Normal 8-23 [facility] Comment on above: Performed By: #### C MPF #### [facility] [address] [place] [address] Lipid Panel Fastingon 2022 Cholesterol [Mass/Vol] 112 mg/dL Normal 0-199 [facility] Comment on above: Result Comment: ATP III Cholesterol classification is Desirable. Performed By: #### L IPDF #### [facility] [address] [place] [address] HDL Cholesterol Fasting 32 mg/dL Low 40-59 [facility] Comment on above: Result Comment: ATP III [...] CHD Performed By: #### L IPDF #### [facility] [address] [place] [address] LDL Cholesterol (Calculated) Fasting 67 mg/dL Normal 0-129 [facility] Comment on above: Result Comment: ATP III LDL Classification is Optimal. Performed By: #### L IPDF #### [facility] [address] [place] [address] Triglycerides Fasting 63 mg/dL Normal 0-150 [facility] Comment on above: Result Comment: ATP III Triglycerides Classification is Normal. Performed By: #### L IPDF #### [facility] [address] [place] [address] Prostate Specific Ag Screeno n 06-11-2023 Prostate Specific Ag Screen 1.58 ng/mL Normal 0.00-4.00 [facility] Comment on above: Performed By: #### P SA #### [facility] [address] [place] [address] Comprehensive Metabolic Pane l, Fastingon 06-15-2022 Albumin [Mass/Vol] 4 g/dL 3.5 - 4.6 g/dL [facility] ALP (Bld) [Catalytic activity/Vol] 137 U/L High 35 - 104 U/L [facility] ALT [Catalytic activity/Vol] 17 U/L 0 - 41 U/L [facility] Anion gap [Moles/Vol] 7 mmol/L Low [facility] AST [Catalytic activity/Vol] 29 U/L 0 - 40 U/L [facility] Bilirubin [Mass/Vol] 1.0 mg/dL High 0.2 - 0 .7 mg/dL [facility] Calcium [Mass/Vol] 9.3 mg/dL 8.5 - 9.9 mg/dL [facility] Chloride [Moles/Vol] 104 mmol/L [facility] CO2 [Moles/Vol] 27 mmol/L [facility] Creatinine [Mass/Vol] 0.98 mg/dL 0.7 - 1.2 mg/dL [facility] GFR/1.73 sq M.predicted MDRD (S/P/Bld) [Vol rate/Area] 60 - PINF [facility] Comment on above: Pediatric calculator link https://www.kidney.org/professionals/kdoqi/gfr_calculatorped [...] [Mass/Vol] 2.6 g/dL 2.3 - 3.5 g/dL [facility] Glucose [Mass/Vol] 92 mg/dL 70 - 99 mg/dL [facility] Potassium [Moles/Vol] 4.9 mmol/L [facility] Protein [Mass/Vol] 6.6 g/dL 6.3 - 8 g/dL [facility] Sodium [Moles/Vol] 138 mmol/L [facility] Urea nitrogen (BldV) [Mass/Vol] 12 mg/dL 8 - 23 mg/dL [facility] Lipid, Fastingon 06-15-2022 Cholesterol [Mass/Vol] 136 mg/dL 0 - 199 mg/dL [facility] Comment on above: ATP III Cholesterol classification is Desirable. Cholesterol in HDL [Mass/Vol] 30 mg/dL Low 40 - 59 mg/dL [facility] Comment on above: ATP III HDL Cholestr [...] [Mass/Vol] 86 mg/dL 0 - 129 mg/dL [facility] Comment on above: ATP III LDL Classifi cation is Optimal. Triglyceride, Fasting 98 mg/dL 0 - 150 mg/dL [facility] Comment on above: ATP III Triglyceride s Classification is Normal. No Panel Informationon 06-15 Interpretation and review of laboratory results Abnormal [facility] CBCon 04-02-2022 Hematocrit (Bld) [Volume fraction] 45.9 % 42 - 52 % [facility] Hemoglobin (Bld) [Mass/Vol] 15.0 g/dL 14 - 18 g/dL [facility] Interpretation and review of laboratory results Abnormal [facility] MCH (RBC) [Entitic mass] 31.5 pg High 27 - 31.3 pg [facility] MCHC (RBC) [Mass/Vol] 32.8 % Low 33 - 37 % [facility] MCV (RBC) [Entitic vol] 96.0 fL 80 - 100 fL [facility] Platelet distribution width (Bld) [Ratio] 15.1 % High 11.5 - 14.5 % [facility] Platelets (Bld) [#/Vol] 207 10*3/uL 130 - 400 K/uL [facility] RBC (Bld) [#/Vol] 4.78 10*6/uL TOM MUNGUIA [facility] WBC (Bld) [#/Vol] 7.0 10*3/uL 4.8 - 10.8 K/uL [facility] [employer] XR CHEST (2 VW)on 04-02-2022 NO ACUTE CARDIOPULMO NARY DISEASE. [facility] RADIOLOGY Described EXAMINATIO N: XR CHEST (2 VW) CLINICAL HISTORY: SHORTNESS OF BREATH COMPARISONS: CT CHEST, JUNE 24, 2021. FINDINGS: Osseous structures are intact. Cardiopericardial silhouette is normal. Pulmonary vasculature is normal. Lungs are clear. [facility] RADIOLOGY Signer, MD Darci - 04/02/2022 Described EXAMINATION: XR CHEST (2 VW) CLINICAL HISTORY: SHORTNESS OF BREATH COMPARISONS: CT CHEST, JUNE 24, 2021. FINDINGS: Osseous structures are intact. Cardiopericardial silhouette is normal. Pulmonary vasculature is normal. Lungs are clear. IMPRESSION: NO ACUTE CARDIOPULMONARY DISEASE. [facility] Work Phone: Radiology Study observation (narrative) [facility] [employer] Phone: XR CHEST (2 VW)Ordered By: Binh Rosales on 04-02-2022 [facility] [employer] Work Phone: TSH with ReflexOrdered By: Liseth Rey on 07-03-2021 TSH Qn 1.18 m[IU]/L [employer] Phone: [employer] Phone: CBCOrdered By: Jarad Rey on 06-12-2021 Hematocrit (Bld) [Volume fraction] 45.9 % 42.0 - 52.0 % [facility] Phone: Hemoglobin.gastroint estinal spec 1 Ql (Stl) 15.5 g/dL 14.0 - 18.0 g/dL [employer] Phone: Interpretation and review of laboratory results Abnormal [employer] Phone: MCH (RBC) [Entitic mass] 31.7 pg High 27.0 - 31.3 pg [employer] Phone: MCHC (RBC) [Mass/Vol] 33.7 % 33.0 - 37.0 % [employer] Phone: MCV (RBC) [Entitic vol] 94.1 fL 80.0 - 100.0 fL [employer] Phone: Platelet distribution width (Bld) [Ratio] 14.6 % High 11.5 - 14.5 % [employer] Phone: Platelets (Bld) [#/Vol] 239 10*3/uL 130 - 400 K/uL [employer] Phone: RBC (Bld) [#/Vol] 4.87 10*6/uL [employer] Phone: WBC (Bld) [#/Vol] 6.9 10*3/uL 4.8 - 10.8 K/uL [employer] Phone: [employer] Phone: Comprehensive Metabolic Pane l, FastingOrdered By: Jarad Rey on 06-12-2021 Albumin [Mass/Vol] 4.1 g/dL 3.5 - 4.6 g/dL [employer] Phone: ALP (Bld) [Catalytic activity/Vol] 120 U/L High 35 - 104 U/L [employer] Phone: ALT [Catalytic activity/Vol] 13 U/L 0 - 41 U/L [employer] Phone: Anion gap [Moles/Vol] 9 mmol/L [employer] Phone: AST [Catalytic activity/Vol] 19 U/L 0 - 40 U/L [employer] Phone: Bilirubin [Mass/Vol] 0.6 mg/dL 0.2 - 0 .7 mg/dL [employer] Phone: Calcium [Mass/Vol] 9.3 mg/dL 8.5 - 9.9 mg/dL [employer] Phone: Chloride [Moles/Vol] 105 mmol/L [employer] Phone: CO2 [Moles/Vol] 24 mmol/L [employer] Phone: Creatinine [Mass/Vol] 0.98 mg/dL 0.70 - 1.20 mg/dL [employer] Phone: Free PSA/Total PSA [Mass fraction] 6.4 g/dL 6.3 - 8.0 g/dL [employer] Phone: GFR >60.0 >60 [employer] Phone: Comment on above: >60 mL/min/1.73m2 EG FR, calc. for ages 18 and older using the MDRD formula (not corrected for weight), is valid for stable renal function. GFR Non- >60.0 >60 [employer] Phone: Comment on above: >60 mL/min/1.73m2 EG FR, calc. for ages 18 and older using the MDRD formula (not corrected for weight), is valid for stable renal function. Globulin (S) [Mass/Vol] 2.3 g/dL 2.3 - 3.5 g/dL [employer] Phone: Glucose [Mass/Vol] 103 mg/dL High 70 - 99 mg/dL [employer] Phone: Potassium [Moles/Vol] 4.7 mmol/L [employer] Phone: Sodium [Moles/Vol] 138 mmol/L [employer] Phone: Urea nitrogen (BldV) [Mass/Vol] 16 mg/dL 8 - 23 mg/dL [employer] Phone: Lipid, FastingOrdered By: Wilmer Rey on 06-12-2021 Cholesterol [Mass/Vol] 127 mg/dL 0 - 199 mg/dL [employer] Phone: Comment on above: ATP III Cholesterol classification is Desirable. Cholesterol in HDL [Mass/Vol] 28 mg/dL Low 40 - 59 mg/dL [employer] Phone: Comment on above: ATP III HDL [...] [Mass/Vol] 83 mg/dL 0 - 129 mg/dL [employer] Phone: Comment on above: ATP III LDL Classifi cation is Optimal. Triglyceride, Fasting 78 mg/dL 0 - 150 mg/dL [employer] Phone: Comment on above: ATP III Triglyceride s Classification is Normal. No Panel InformationOrdered By: Jarad Rey on 06-12-2021 Interpretation and review of laboratory results Abnormal [employer] Phone: [employer] Phone: PSA ScreeningOrdered By: Ollie Rey on 06-12-2021 [employer] Phone: ECHO Complete 2D W Doppler W ColorOrdered By: Justin Espinoza on 02-27-2021 Transthoracic Echocardiography Report (TTE) Demographics Patient Name JULISSA WYATT Gender Male LINDSAY Patient Number [id number] Race Ethnicity Visit Number [id number] Room Number Corporate ID Date of Study 02/27/2021 Referring Physician Alexis Núñez MD Number Date of 1955 Staff Radiation Therapist Rojas Mancini [facility] Age 65 year(s) Interpreting [facility] Physician Cardiology Alexis Núñez MD Procedure Type [...] RV Systolic Press (more content not included)... [employer] Work Phone: Anselmo, Dawson Incoming Cardiovascular Results From [facility] - 02/27/2021 11:35 AM EDT Transthoracic Echocardiography Report (TTE) Demographics Patient Name JULISSA WYATT Gender Male LINDSYA Patient Number [id number] Race Ethnicity Visit Number [id number] Room Number Corporate ID Date of Study 02/27/2021 Referring Physician Alexis Núñez MD Number Date of 1955 Staff Radiation Therapist Rojas Mancini [facility] Age 65 year(s) Interpreting [facility] Physician Cardiology Alexis Núñez MD Procedure Type [...] Root: 2.54 cm LVOT Diameter: 1.82 cm [employer] Phone: [employer] Phone: NM MYOCARDIAL SPECT REST EXE RCISE OR RXOrdered By: Justin Espinoza on 02-27-2021 NORMAL MYOCARDIAL PE RFUSION IMAGING WITH NO EVIDENCE OF STRESS-INDUCED ISCHEMIA NOR PRIOR MYOCARDIAL INFARCTION. NORMAL LV EJECTION FRACTION. [employer] Phone: EXAMINATION: PHARMACOLOGICAL SPECT IMAGING CLINICAL HISTORY: [...] tracer uptake throughout the left ventricle segments. [employer] Phone: Anselmo, Chpo Incoming R adiant Results From [facility] - 02/27/2021 6:45 PM EDT EXAMINATION: PHARMACOLOGICAL [...] PRIOR MYOCARDIAL INFARCTION. NORMAL LV EJECTION FRACTION. [facility] [employer] Work Phone: [facility] [employer] Work Phone: Comprehensive Metabolic Pane l, Fastingon 06-11-2020 Albumin [Mass/Vol] 4.2 g/dL 3.5 - 4.6 g/dL [place] ALP [Catalytic activity/Vol] 113 U/L High 35 - 104 U/L [place] ALT [Catalytic activity/Vol] 18 U/L 0 - 41 U/L [place] Anion gap [Moles/Vol] 8 mmol/L Low [place] AST [Catalytic activity/Vol] 32 U/L 0 - 40 U/L [place] Bilirubin Ql (U) 0.8 mg/dL High 0.2 - 0.7 mg/dL [place] Calcium [Mass/Vol] 8.9 mg/dL 8.5 - 9.9 mg/dL [place] Chloride [Moles/Vol] 104 mmol/L [place] CO2 [Moles/Vol] 27 mmol/L [place] Creatinine [Mass/Vol] 1.13 mg/dL 0.7 - 1.2 mg/dL [place] GFR >60.0 >60 [place] Comment on above: >60 mL/min/1.73m2 EG FR, calc. for ages 18 and older using the MDRD formula (not corrected for weight), is valid for stable renal function. GFR Non- >60.0 >60 [place] Comment on above: >60 mL/min/1.73m2 EG FR, calc. for ages 18 and older using the MDRD formula (not corrected for weight), is valid for stable renal function. Globulin (S) [Mass/Vol] 2.1 g/dL Low 2.3 - 3.5 g/dL [place] Glucose [Mass/Vol] 101 mg/dL High 70 - 99 mg/dL [place] Interpretation and review of laboratory results Abnormal [place] Potassium [Moles/Vol] 4.2 mmol/L [place] Protein [Mass/Vol] 6.3 g/dL 6.3 - 8 g/dL [place] Sodium [Moles/Vol] 139 mmol/L [place] Urea nitrogen [Mass/Vol] 18 mg/dL 8 - 23 mg/dL [place] Lipid, Fastingon 06-11-2020 Cholesterol [Mass/Vol] 137 mg/dL 0 - 199 mg/dL [place] Comment on above: ATP III Cholesterol classification is Desirable. Cholesterol in HDL [Mass/Vol] 34 mg/dL Low 40 - 59 mg/dL [place] Comment on above: ATP III HDL [...] [Mass/Vol] 87 mg/dL 0 - 129 mg/dL [place] Comment on above: ATP III LDL Classifi cation is Optimal. Interpretation and review of laboratory results Abnormal [place] Triglyceride, Fasting 79 mg/dL 0 - 150 mg/dL [place] Comment on above: ATP III Triglyceride s Classification is Normal. Comprehensive Metabolic Pane l, Fastingon 05-15-2019 Albumin [Mass/Vol] 4.1 g/dL 3.5 - 4.6 g/dL [place] ALP [Catalytic activity/Vol] 135 U/L High 35 - 104 U/L [place] ALT [Catalytic activity/Vol] 12 U/L 0 - 41 U/L [place] Anion gap [Moles/Vol] 9 mmol/L [place] AST [Catalytic activity/Vol] 25 U/L 0 - 40 U/L [place] Bilirubin Ql (U) 1.2 mg/dL High 0.2 - 0.7 mg/dL [place] Calcium [Mass/Vol] 8.9 mg/dL 8.5 - 9.9 mg/dL [place] Chloride [Moles/Vol] 106 mmol/L [place] CO2 [Moles/Vol] 25 mmol/L [place] Creatinine [Mass/Vol] 0.97 mg/dL 0.7 - 1.2 mg/dL [place] GFR >60.0 >60 [place] Comment on above: >60 mL/min/1.73m2 EG FR, calc. for ages 18 and older using the MDRD formula (not corrected for weight), is valid for stable renal function. GFR Non- >60.0 >60 [place] Comment on above: >60 mL/min/1.73m2 EG FR, calc. for ages 18 and older using the MDRD formula (not corrected for weight), is valid for stable renal function. Globulin (S) [Mass/Vol] 2.6 g/dL 2.3 - 3.5 g/dL [place] Glucose [Mass/Vol] 95 mg/dL 70 - 99 mg/dL [place] Potassium [Moles/Vol] 4.1 mmol/L [place] Protein [Mass/Vol] 6.7 g/dL 6.3 - 8 g/dL [place] Sodium [Moles/Vol] 140 mmol/L [place] Urea nitrogen [Mass/Vol] 15 mg/dL 8 - 23 mg/dL [place] Lipid, Fastingon 05-15-2019 Cholesterol [Mass/Vol] 107 mg/dL 0 - 199 mg/dL [place] Comment on above: ATP III Cholesterol classification is Desirable. Cholesterol in HDL [Mass/Vol] 29 mg/dL Low 40 - 59 mg/dL [place] Comment on above: ATP III HDL [...] [Mass/Vol] 64 mg/dL 0 - 129 mg/dL [place] Comment on above: ATP III LDL Classifi cation is Optimal. Triglyceride, Fasting 72 mg/dL 0 - 150 mg/dL [place] Comment on above: ATP III Triglyceride s Classification is Normal. Otheron 05-15-2019 Interpretation and review of laboratory results Abnormal [place] Follow Up (Plastic Surgery)o n 06-01-2018 [...] PATHOLOGY SPEC Normal [facility] Comment on above: Order Comment: Comme nt: LEFT LEG BASAL CELL CARCINOMA Result Comment: Note : Specimens received on or after April:* Reports will be faxed to all physician's office.If you are a physician or have access to [email or web address]:* Pathology and Cytology reports are located in [email or web address] [facility] in the folder labeled Medical Record Forms.* Reports are also in the Physician Portal.* For assistance locating reports call: (LAB) [phone] Performed By: #### L PATH ####[place] [address] [address] [id number] Follow Up (Plastic Surgery)o n 05-11-2018 Follow [...] and authentication has not occurred.Name: RAMON COSTAMR: [id number]: Esa Castañeda M.D.DATE OF SURGERY: 05/04/2018ANESTHESIA:1ST QUILLER OPERATOR: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 No complications [facility] RAMON [id number] [address] [place] [id number]: Esa Castañeda MDOPERATIVE REPORTencountered during the procedure. Esa CASTAÑEDA M.D./[facility]/[id number]: 05/11/2018 15:12:35 E/S:Electronicall y Signed __[facility] [id number] [address] [place] [address] [id number]CTATING DR: Esa Castañeda MDOPERATIVE REPORT Normal [facility] [place] [place] Surgical Pathology Depar tmenton 05-04-2018 [facility] Surgical Pathology Department Name RAMON COSTA Pathologist: BELKIS COFFMAN, MDDate of Procedure: 05/04/2018Date Received: 05/04/2018Date Reported 05/13/2018Submitting Physician: ESA CASTAÑEDA MDLocation: [facility] Other External # [id number] FINAL DIAGNOSISA. LEFT LEG, BASAL CELL CARCINOMA, EXCISION:-- BASAL CELL CARCINOMA, SUPERFICIAL GROWTH PATTERN AND SCAR, INKED MARGINSFREE IN PLANES OF SECTIONS EXAMINED.Cloth Calender: Tono Mars MD. The gross and/or microscopic [...] LEG BASAL CELL CARCINOMA Other Case Numbers [id number] Description:Received in formalin, labeled with the patient's [...] body of ellipse 4 inferior tipd05/05/2018 Normal [facility] Comment on above: Performed By: #### U [facility] ####[facility] Surgical Pathology [id number] [facility] [address] Office Visiton 04-15-2018 Office Visit Chief ComplaintThe [...] Apr 15 2018 5:29PM EST (Author) Normal [employer] [address] [address]DSMPHXT AND PHYSICAL EXAMINATIONPatient Name:RAMON COSTASouthwest General Health Centerkolby Record Number: [id number] Physician: Quirino Sheehan M.D. Date: 04/26/2018Discharge Date:CHIEF [...] under MAC anesthesia.Quirino Sheehan M.D.INTERNAL JOB NUMBER: [id number]:Electronically signed by Quirino Sheehan MD on 01 Apr 2018 12:58:18 GMT Normal [facility] CBC With Differentialon 09-30 Basophils Auto #/vol (Bld) 0.04 10*3/uL Normal 0.01-0.09 [facility] Comment on above: Performed By: #### 2 [id number] ####[facility] [address] [place] [address] Basophils/100 WBC Auto (Bld) 0.6 % Normal 0.0-1.3 [facility] Comment on above: Performed By: #### 2 857561 ####[facility] [address] [place] [address] Eosinophils Auto #/vol (Bld) 0.15 10*3/uL Normal 0.01-0.46 [facility] Comment on above: Performed By: #### 2 365386 ####[facility] [address]ks[address] [place] [address] Eosinophils/100 WBC Auto (Bld) 2.4 % Normal 0.0-6.7 [facility] Comment on above: Performed By: #### 2 021268 ####[facility] [address] [place] [address] Erythrocyte distribution width Auto Ratio (RBC) 13.3 % Normal 12.0-15.4 [facility] Comment on above: Performed By: #### 2 897186 ####[facility] [address] [place] [address] Hematocrit Auto Volume Fraction (Bld) 44.4 % Normal 38.4-54.9 [facility] Comment on above: Performed By: #### 2 739693 ####[facility] [address]me[address] [place] [address] Hemoglobin mass conc (Bld) 15.0 g/dL Normal 12.8-17.7 [facility] Comment on above: Performed By: #### 2 001591 ####[facility] [address] [place] [address] Imm Grans Absolute 0.02 10*3/uL Normal 0.00-0.21 [facility] Comment on above: Performed By: #### 2 050100 ####[facility] [address] [place] [address] Immature granulocytes #/vol (Bld) 0.3 % Normal [facility] Comment on above: Performed By: #### 2 275973 ####[facility] [address]xk[address] [place] [address] Lymphocytes Auto #/vol (Bld) 2.17 10*3/uL Normal 0.40-2.84 [facility] Comment on above: Performed By: #### 2 419887 ####[facility] [address] [place] [address] Lymphocytes/100 WBC Auto (Bld) 34.5 % Normal 9.4-41.1 [facility] Comment on above: Performed By: #### 2 172268 ####[facility] [address] [place] [address] MCH Auto Entitic mass (RBC) 31.6 pg Normal 27.5-32.9 [facility] Comment on above: Performed By: #### 2 642282 ####[facility] [address]mn[address] [place] [address] MCHC Auto mass conc (RBC) 33.8 g/dL Normal 30.5-35.4 [facility] Comment on above: Performed By: #### 2 317349 ####[facility] Ahb[address] [place] [address] MCV Auto Entitic volume (RBC) 93.5 fL Normal 83.3-98.2 [facility] Comment on above: Performed By: #### 2 827604 ####[facility] [address]qw[address] [place] [address] Monocytes Auto #/vol (Bld) 0.56 10*3/uL Normal 0.25-1.33 [facility] Comment on above: Performed By: #### 2 911825 ####[facility] [address]pz[address] [place] [address] Monocytes/100 WBC Auto (Bld) 8.9 % Normal 3.0-16.2 [facility] Comment on above: Performed By: #### 2 076283 ####[facility] [address] [place] [address] Neutrophils Absolute 3.35 10*3/uL Normal 2.22-7.53 [facility] Comment on above: Performed By: #### 2 692131 ####[facility] [address] [place] [address] Neutrophils/100 WBC Auto (Bld) 53.3 % Normal 46.2-79.1 [facility] Comment on above: Performed By: #### 2 323862 ####[facility] [address]pr[address] [place] [address] NRBC Absolute 0.00 10*3/uL Normal [facility] Comment on above: Performed By: #### 2 847354 ####[facility] [address] [place] [address] NRBC Automated 0.0 /100{WBCs} Normal [facility] Comment on above: Performed By: #### 2 618938 ####[facility] [address] [place] [address] Platelet mean volume Auto Entitic volume (Bld) 8.5 fL Low 9.9-12.1 [facility] Comment on above: Performed By: #### 2 336394 ####[facility] Zgc[address] [place] [address] Platelets Auto #/vol (Bld) 180 10*3/uL Normal 155-404 [facility] Comment on above: Performed By: #### 2 137457 ####[facility] [address] [place] [address] RBC Auto #/vol (Bld) 4.75 10*6/uL Normal 4.08-6.37 [facility] Comment on above: Performed By: #### 2 204300 ####[facility] [address] [place] [address] RDW SD 45.9 fL Normal 39.3-48.6 [facility] Comment on above: Performed By: #### 2 841629 ####[facility] [address] [place] [address] WBC Auto #/vol (Bld) 6.3 10*3/uL Normal 4.2-11.0 [facility] Comment on above: Performed By: #### 2 889602 ####[facility] [address] [place] [address] Comprehensive Metabolic Pane otoniel 10-15-2017 Albumin mass conc 4.0 g/dL Normal 3.4-5.0 [facility] Comment on above: Performed By: #### 1 648862 ####[facility] [address] [place] [address] Albumin/Globulin mass ratio 1.5 {ratio} Normal 0.9-2.4 [facility] Comment on above: Performed By: #### 1 205281 ####[facility] [address] [place] [address] ALP enzyme act/vol 116 U/L Normal 45-117 [facility] Comment on above: Performed By: #### 1 603529 ####[facility] Iwq[address] [place] [address] ALT enzyme act/vol 18 U/L Normal 10-52 [facility] Comment on above: Performed By: #### 1 883235 ####[facility] Utb[address] [place] [address] Anion gap 3 molar conc 9 mmol/L Low 10-20 [facility] Comment on above: Performed By: #### 1 194290 ####[facility] [address] [place] [address] AST enzyme act/vol 13 U/L Normal 13-39 [facility] Comment on above: Performed By: #### 1 053235 ####[facility] [address] [place] [address] Bilirubin mass conc 0.8 mg/dL Normal 0.0-1.2 [facility] Comment on above: Performed By: #### 1 063108 ####[facility] [address] [place] [address] Calcium mass conc 9.1 mg/dL Normal 8.6-10.3 [facility] Comment on above: Performed By: #### 1 807691 ####[facility] [address] [place] [address] Chloride molar conc 108 mmol/L High 98-107 [facility] Comment on above: Performed By: #### 1 488441 ####[facility] [address] [place] [address] Creatinine mass conc 1.12 mg/dL Normal 0.50-1.30 [facility] Comment on above: Performed By: #### 1 158578 ####[facility] [address] [place] [address] GFR/1.73 sq M.predicted MDRD vol rate/area mL/min/{1.73_m2} Normal [facility] Comment on above: Result Comment: Inte rpretation for Chronic Kidney Disease:Stages 1&2 >60 Healthy or potential kidney damage.Mild decrease of GFR.Stage 3 30-59 Moderate decrease of GFR.Stage 4 15-29 Severe decrease of GFR.Stage 5 <15 Kidney failure or on dialysis. Performed By: #### 1 251022 ####[facility] [address] [place] [address] Glucose mass conc 104 mg/dL High 70-100 [facility] Comment on above: Performed By: #### 1 271304 ####[facility] [address] [place] [address] HCO3 molar conc (Bld) 28 mmol/L Normal 21-32 [facility] Comment on above: Performed By: #### 1 419345 ####[facility] [address] [place] [address] Potassium molar conc 4.3 mmol/L Normal 3.5-5.1 [facility] Comment on above: Performed By: #### 1 887551 ####[facility] F[address] [place] [address] Protein mass conc 6.6 g/dL Normal 6.4-8.2 [facility] Comment on above: Performed By: #### 1 855478 ####[facility] [address] [place] [address] Sodium molar conc 141 mmol/L Normal 136-145 [facility] Comment on above: Performed By: #### 1 040101 ####[facility] [address] [place] [address] Urea nitrogen mass conc 12 mg/dL Normal 6-23 [facility] Comment on above: Performed By: #### 1 833047 ####[facility] [address] [place] [address] Urea nitrogen/Creatinine mass ratio 11 mg/mg Normal 5-25 [facility] Comment on above: Performed By: #### 1 093987 ####[facility] [address] [place] [address] Lipid Panelon 10-15-2017 Cholesterol in HDL mass conc 40 mg/dL Normal [facility] Comment on above: Result Comment: Norm al Mod Risk High Risk5-9 >48 42-48 <4210- 14 >45 40-45 <4015-19 >38 34-38 <34Adult >39 Performed By: #### 1 095425 ####[facility] [address] [place] [address] Cholesterol in LDL mass conc 74 mg/dL Normal <130 [facility] Comment on above: Performed By: #### 1 273692 ####[facility] [address] [place] [address] Cholesterol in VLDL mass conc 16 mg/dL Normal <30 [facility] Comment on above: Performed By: #### 1 372446 ####[facility] [address] [place] [address] Cholesterol mass conc 130 mg/dL Normal <200 [facility] Comment on above: Performed By: #### 1 344477 ####[facility] [address] [place] [address] Cholesterol.total/Ch olesterol in HDL mass ratio 3.2 {ratio} Normal [facility] Comment on above: Performed By: #### 1 873016 ####[facility] [address] [place] [address] Triglyceride mass conc 81 mg/dL Normal <150 [facility] Comment on above: Result Comment: 150- 199 Borderline [id number] High>500 Very High Performed By: #### 1 477078 ####[address] [address] Prostate Specific Antigen, T otalon 10-15-2017 Protein mass conc 1.2 ng/mL Normal 0.0-4.0 [facility] Comment on above: Result Comment: 5-Al pha Reductase Inhibitors (e.g. Proscar,Finasteride, Avodart, Dutasteride and Lianne)may falsely decrease serum total PSA by 50%.To achieve the corrected value, the reportedPSA should be multiplied X 2. Performed By: #### 1 178059 ####[facility] [address] [place] [address] TSHon 10-15-2017 Thyrotropin Qn 0.54 mU/L Normal 0.44-3.98 [facility] Comment on above: Performed By: #### 1 308910 ####[address] [address] XR Abdomen 1 Viewon 10-06-19 18 XR [...] pmSigned by: Ramon Hampton DO Technologist: TEX [facility] XR Abdomen 1 Viewon 09-10-19 18 XR [...] pmSigned by: Ramon Hampton DO Technologist: TEX [facility] Calculus Analysison 09-02-19 18 Ammonium Acid Urate Not Performed Normal [facility] Comment on above: Performed By: #### 2 785251 ####HEATHER [address] [place] [address] Body weight Measured 176.0 mg Normal [facility] Comment on above: Performed By: #### 2 630980 ####HEATHER [address] [place] [address] [place] Hydrogen Phos Not Performed [facility] Comment on above: Performed By: #### 2 861110 ####HEATHER [address] [place] [address] [place] Oxalate, Dihydrate Not Performed [facility] Comment on above: Performed By: #### 2 157251 ####HEATHERHarmony RogersPsuIxsa[address] [place] [address] [place] Oxalate, Monohydr 95 % [facility] Comment on above: Performed By: #### 2 794780 ####HEATHER [address] [place] [address]24[address] Calcium Bilirubinate Not Performed [facility] Comment on above: Performed By: #### 2 756276 ####HEATHERHarmony RogersRymCapg[address] [place] [address] Calcium Carbonate Not Performed [facility] Comment on above: Performed By: #### 2 869211 ####HEATHERHarmony RogersWjcAija[address] [place] [address] Calcium Phos 05 % [facility] Comment on above: Performed By: #### 2 543461 ####HEATHERHarmony RogersNcwMvdm[address] [place] [address] Cellular Material Not Performed [facility] Comment on above: Performed By: #### 2 220077 ####HEATHERHarmony [address]BbePrve[address] [place] [address] Cholesterol mass conc Not Performed [facility] Comment on above: Performed By: #### 2 724003 ####HEATHERHarmony RogersDbqLmtz[address] [place] [id number] Color Nom (U) Brown [facility] Comment on above: Performed By: #### 2 408836 ####HEATHER [address] [place] [address]24[address] Comment 1 Not Performed [facility] Comment on above: Performed By: #### 2 492888 ####HEATHER [address] [place] [address]24605 Comment 2 Note: [facility] Comment on above: Result Comment: Plea se do not submit specimens on Q-Tips, in tape, onfilters, or in liquids such as blood, urine or formalin.This may cause unnecessary biohazards, erroneous resultsand/or delay in the processing of the specimen. Performed By: #### 2 703577 ####HEATHER RogersRrrAxcu[address] [place] [address] Comment 3 Comment [facility] Comment on above: Result Comment: Phys marielaan questions regarding Calculi Analysis [facility] at: [phone]. Performed By: #### 2 873220 ####HEATHER [address] [place] [address] Composition Comment [facility] Comment on above: Result Comment: Perc entage (Represents the % composition) Performed By: #### 2 959704 ####HEATHER [address]ux[address] [place] [address] Cystine Not Performed [facility] Comment on above: Performed By: #### 2 259746 ####HEATHER [address] [place] [address] Disclaimer: Comment [facility] Comment on above: Result Comment: This test was developed and its performance characteristicsdetermined by [facility]. It has not been cleared orapproved by the Food and Drug Administration.Performed At: [address] [id number] Ruth MD Ph:[phone] Performed By: #### 2 542186 ####HEATHER [address] [place] [address] Dried Blood Not Performed [facility] Comment on above: Performed By: #### 2 727510 ####HEATHER UbfJx[address] [place] [address] Mag [place] Phos Not Performed [facility] Comment on above: Performed By: #### 2 [id number] ####HEATHER WfvOoav1200 [place] [address] Newberyite Not Performed [facility] Comment on above: Performed By: #### 2 440849 ####HEATHER VenKcrb1761 [place] [address] Nidus No Nidus visualized [facility] Comment on above: Performed By: #### 2 077921 ####HEATHER RogersVatGjil8884 [place] [address] Note: Comment [facility] Comment on above: Result Comment: Calc jose rafael report without photograph will follow via computer,mail, or oven worker delivery. Performed By: #### 2 644443 ####HEATHER RogersLluBgup0603 [place] [address] Shell Not Performed [facility] Comment on above: Performed By: #### 2 861923 ####HEATHER RogersIbqLpva5640 [place] [address] Size Comment [facility] Comment on above: Result Comment: Spec imen received as fragments. Performed By: #### 2 175906 ####HEATHER RogersImmAouw6552 [place] [address] Sodium molar conc Not Performed [facility] Comment on above: Performed By: #### 2 898087 ####HEATHER RogersKyzLjtc2169 [place] [address] Surface Crystals Not Performed [facility] Comment on above: Performed By: #### 2 717070 ####HEATHER RogersDffBuso5628 [place] [address] Triamterene Not Performed [facility] Comment on above: Performed By: #### 2 219351 ####HEATHER RogersQayMquh8373 [place] [address] Uric Acid Dihydrate Not Performed [facility] Comment on above: Performed By: #### 2 164537 ####HEATHER RogersPcuHgnz0183 [place] [address] Uric Acid. Not Performed [facility] Comment on above: Performed By: #### 2 073122 ####HEATHER RogersXkbIpiy4234 [place] [id number] XR Abdomen APon 08-19-2017 INR Coag RelTime [...] pmSigned by: Sundar Jacobsen MD Technologist: STEPHANIE [facility] Calculus Analysison 08-13-20 17 Ammonium Acid Urate Not Performed Normal [facility] Comment on above: Performed By: #### 2 453635 ####HEATHER YfrJapl2283 [place] [address] Body weight Measured 6.9 mg [facility] Comment on above: Performed By: #### 2 154336 ####HEATHER KprVfuk3900 [place] [address] [place] Hydrogen Phos Not Performed [facility] Comment on above: Performed By: #### 2 585228 ####HEATHER HsdCked8704 [place] [address] [place] Oxalate, Dihydrate Not Performed [facility] Comment on above: Performed By: #### 2 615911 ####HEATHER XxhPxpz7239 [place] [address] [place] Oxalate, Monohydr 97 % [facility] Comment on above: Performed By: #### 2 385613 ####HEATHER IleHkfh9518 [place] [address] Calcium Bilirubinate Not Performed Normal [facility] Comment on above: Performed By: #### 2 330647 ####HEATHER WlzOkxy2648 [place] [address] Calcium Carbonate Not Performed [facility] Comment on above: Performed By: #### 2 315189 ####HEATHER ZtdZiuq5331 [place] [address] Calcium Phos 03 % [facility] Comment on above: Performed By: #### 2 034473 ####HEATHER BykAnyb6409 [place] [address] Cellular Material Not Performed [facility] Comment on above: Performed By: #### 2 938276 ####HEATHERHarmony RogersOerIpey1125 [place] [address] Cholesterol mass conc Not Performed [facility] Comment on above: Performed By: #### 2 325546 ####HEATHERHarmony RogersRjnUrkq1956 [place] [address] Color Nom (U) Brown [facility] Comment on above: Performed By: #### 2 244342 ####HEATHERHarmony RogersCicRlep1949 [place] [address] Comment 1 Not Performed [facility] Comment on above: Performed By: #### 2 252701 ####HEATHER GafOrod4336 [place] [address] Comment 2 Not Performed [facility] Comment on above: Performed By: #### 2 884850 ####HEATHER PucFkro5770 [place] [address] Comment 3 Comment [facility] Comment on above: Result Comment: Phys willian questions regarding Calculi Analysis [facility] at: [phone]. Performed By: #### 2 596749 ####HEATHERHarmony RogersGymZgjs1868 [place] [address] Composition Comment [facility] Comment on above: Result Comment: Perc entage (Represents the % composition) Performed By: #### 2 391665 ####HEATHER IreOtqt5278 [place] [address] Cystine Not Performed [facility] Comment on above: Performed By: #### 2 896298 ####HEATHER MicIkkl1743 [place] [address] Disclaimer: Comment [facility] Comment on above: Result Comment: This test was developed and its performance characteristicsdetermined by [facility]. It has not been cleared orapproved by the Food and Drug Administration.Performed At: [address] [id number] Ruth MD Ph:[phone] Performed By: #### 2 361224 ####HEATHER BxhSdqk2268 [place] [address] Dried Blood Not Performed [facility] Comment on above: Performed By: #### 2 408941 ####HEATHER MowIfef3882 [place] [address] Mag [place] Phos Not Performed [facility] Comment on above: Performed By: #### 2 475551 ####HEATHERHarmony RogersHzdTbms6310 [place] [address] [place] Not Performed [facility] Comment on above: Performed By: #### 2 798851 ####HEATHERHarmony RogersAlaBujo6635 [place] [address] Nidus Comment [facility] Comment on above: Result Comment: Nidu s composed of Calcium oxalate monohydrate. Performed By: #### 2 069714 ####HEATHERHarmony RogersUscRwef7646 [place] [address] Note: Comment [facility] Comment on above: Result Comment: Calc jose rafael report without photograph will follow via computer,mail, or oven worker delivery. Performed By: #### 2 069218 ####HEATHERHarmony RogersKlfWdqp0814 [place] [address] Shell Not Performed [facility] Comment on above: Performed By: #### 2 741612 ####HEATHER CcaRiyy2535 [place] [address] Size Comment [facility] Comment on above: Result Comment: Spec imen received as fragments. Performed By: #### 2 741533 ####HEATHER OvtQsxq0925 [place] [address] Sodium molar conc Not Performed [facility] Comment on above: Performed By: #### 2 494033 ####HEATHER FwgMedi3312 [place] [address] Surface Crystals Not Performed Normal [facility] Comment on above: Performed By: #### 2 742381 ####HEATHER GnmOsyl3061 [place] [address] Triamterene Not Performed Normal [facility] Comment on above: Performed By: #### 2 455932 ####HEATHER VqiMxnt2769 [place] [address] Uric Acid Dihydrate Not Performed Normal [facility] Comment on above: Performed By: #### 2 616140 ####HEATHER VkvCcha1411 [place] [address] Uric Acid. Not Performed Normal [facility] Comment on above: Performed By: #### 2 064146 ####HEATHER FepUehz1346 [place] [address] C Urineon 08-12-2017 C Urine Final Report: Rare N ormal skin naima isolated Normal [facility] Comment on above: Performed By: #### 2 934188 ####HEATHER RogersSzfIwgy7272 [place] [address] XR Abdomen APon 08-11-2017 XR Abdomen AP [...] by: Wally Maldonado MD Technologist: MGW Normal [facility] XR Urography Retrograde Righ ton 08-11-2017 INR [...] by: Sundar Jacobsen MD Technologist: HLL Normal [facility] Auto Diffon 08-10-2017 Basophils Auto #/vol (Bld) 0.0 E3/mcL Normal 0.0-0.2 [facility] Comment on above: Order Comment: Order Added by Discern Expert. Performed By: #### 2 579333 ####HEATHER Youngo1025 [place] [address] Basophils/100 WBC Auto (Bld) 0.2 % Normal 0.0-2.0 [facility] Comment on above: Order Comment: Order Added by Discern Expert. Performed By: #### 2 640069 ####HEATHER RogersXysPyyv1369 [place] [address] Eos Absolute 0.0 E3/mcL Normal 0.0-0.7 [facility] Comment on above: Order Comment: Order Added by Discern Expert. Performed By: #### 2 665404 ####HEATHER RogersNxrFtmm8970 [place] [address] Eosinophils/100 WBC Auto (Bld) 0.5 % Normal 0.0-11.0 [facility] Comment on above: Order Comment: Order Added by Discern Expert. Performed By: #### 2 367080 ####HEATHER Youngo1025 [place] [address] Lymphocytes Auto #/vol (Bld) 1.6 E3/mcL Normal 1.2-3.4 [facility] Comment on above: Order Comment: Order Added by Discern Expert. Performed By: #### 2 254638 ####HEATHER Youngo1025 [place] [address] Lymphocytes/100 WBC Auto (Bld) 15.4 % Low 20.0-55.0 [facility] Comment on above: Order Comment: Order Added by Discern Expert. Performed By: #### 2 511031 ####HEATHER RogersVlkNcdn5488 [place] [address] [place] Absolute 0.8 E3/mcL High 0.0-0.7 [facility] Comment on above: Order Comment: Order Added by Discern Expert. Performed By: #### 2 767210 ####HEATHER Youngo1025 [place] [address] Monocytes/100 WBC Auto (Bld) 7.4 % Normal 0.0-10.0 [facility] Comment on above: Order Comment: Order Added by Discern Expert. Performed By: #### 2 287806 ####HEATHER Youngo1025 [place] [address] Neutro Absolute 7.9 E3/mcL High 1.4-6.5 [facility] Comment on above: Order Comment: Order Added by Discern Expert. Performed By: #### 2 370515 ####HEATHER Youngo1025 [place] [address] Neutro Auto 76.5 % High 37.0-75.0 [facility] Comment on above: Order Comment: Order Added by Discern Expert. Performed By: #### 2 495278 ####HEATHER Youngo1025 [place] [address] BMPon 08-10-2017 Creatinine mass conc 1.2 mg/dL Normal 0.6-1.3 [facility] Comment on above: Performed By: #### 2 417640 ####HEATHER Youngo1025 [place] [address] Urea nitrogen mass conc 18 mg/dL Normal 7-18 [facility] Comment on above: Performed By: #### 2 046377 ####HEATHER Youngo1025 [place] [address] Urea nitrogen/Creatinine mass ratio 15.0 ratio Normal 5.4-30.0 [facility] Comment on above: Performed By: #### 2 030367 ####HEATHER Youngo1025 [place] [address] Calcium mass conc 8.9 mg/dL Normal 8.4-10.2 [facility] Comment on above: Performed By: #### 2 727879 ####HEATHER Youngo1025 [place] [address] Chloride molar conc 108 mmol/L High 98-107 [facility] Comment on above: Performed By: #### 2 625290 ####HEATHER Youngo1025 [place] [address] CO2 molar conc 24.4 mmol/L Normal 24.0-30.0 [facility] Comment on above: Performed By: #### 2 821059 ####HEATHER Youngo1025 [place] [address] Glucose mass conc 120 mg/dL High 70-99 [facility] Comment on above: Performed By: #### 2 050383 ####HEATHER Youngo1025 [place] [address] Potassium molar conc 3.7 mmol/L Normal 3.5-5.1 [facility] Comment on above: Performed By: #### 2 779059 ####HEATHER Youngo1025 [place] [address] Sodium molar conc 139 mmol/L Normal 136-145 [facility] Comment on above: Performed By: #### 2 191146 ####HEATHER RogersZddOxio1612 [place] [address] CBC w/ Auto Diffon 7 Erythrocyte distribution width Auto Ratio (RBC) 13.4 % Normal 11.5-14.5 [facility] Comment on above: Performed By: #### 2 603535 ####HEATHER Youngo1025 [place] [address] Hematocrit Auto Volume Fraction (Bld) 42.7 % Normal 42.0-52.0 [facility] Comment on above: Performed By: #### 2 997598 ####HEATHER RogersJexGvfg9240 [place] [address] Hemoglobin mass conc (Bld) 14.6 g/dL Normal 13.5-18.0 [facility] Comment on above: Performed By: #### 2 728662 ####HEATEHRHarmony RogersTtkRsyt5827 [place] [id number] MCH Auto Entitic mass (RBC) 31.6 pg High 27.0-31.0 [facility] Comment on above: Performed By: #### 2 738801 ####HEATHERHarmony RogersFroWluh8025 [place] [id number] MCHC Auto mass conc (RBC) 34.2 g/dL Normal 33.0-37.0 [facility] Comment on above: Performed By: #### 2 187220 ####HEATHERHarmony RogersAgsWxle0448 [place] [id number] MCV Auto Entitic volume (RBC) 92.5 fL Normal 78.0-100.0 [facility] Comment on above: Performed By: #### 2 163199 ####HEATHERHarmony RogersNafHkyf8553 [place] [phone] Platelet mean volume Auto Entitic volume (Bld) 6.6 fL Low 7.4-11.0 [facility] Comment on above: Performed By: #### 2 097779 ####HEATHERHarmony RogersWtaOrrd7228 [place] [address] Platelets Auto #/vol (Bld) 201 E3/mcL Normal 130-400 [facility] Comment on above: Performed By: #### 2 521031 ####HEATHER RogersFlyKwvz3937 [place] [address] RBC Auto #/vol (Bld) 4.62 E6/mcL Normal 3.90-6.10 [facility] Comment on above: Performed By: #### 2 122034 ####HEATHER CmtZxyr6994 [place] [address] WBC Auto #/vol (Bld) 10.3 E3/mcL Normal 3.6-11.0 [facility] Comment on above: Performed By: #### 2 905530 ####HEATHER AsnYmjm6253 [place] [phone] CT Abdomen/Pelvis w/o Emmett vargas 08-10-2017 CT [...] José Luis Pendleton MD Technologist: SRH Normal [facility] UA Completeon 08-10-2017 Color Nom (U) [place] Abnormal Yellow [facility] Comment on above: Performed By: #### 2 647656 ####HEATHER BrmBpdw2822 [place] [address] Glucose mass conc (U) Negative Normal Negative [facility] Comment on above: Performed By: #### 2 620964 ####HEATHERaHrmony RogersIfaWkil8518 [place] [address] Ketones Ql (U) Trace Normal [facility] Comment on above: Performed By: #### 2 307326 ####HEATHERHarmony RogersYymUppg4685 [place] [address] RBC Test strip #/vol (U) /uL Abnormal 0-3 [facility] Comment on above: Performed By: #### 2 212304 ####HEATHERHarmony RogersXebUzpa5897 [place] [address] UA Blood 3+ Normal Negative [facility] Comment on above: Result Comment: High concentration of Ascorbic Acid present in urine. This may cause False Negative Occ Blood. Review microscopic results and patient's clinical symptoms. Performed By: #### 2 301338 ####HEATHERHarmony RogersZbwFkcf7340 [place] [address] UA Ascorbic Acid 40 mg/dL High <=19 [facility] Comment on above: Performed By: #### 2 822263 ####HEATHERHarmony RogersVlxQuvt4495 [place] [address] UA Bacteria 1+ /HPF Abnormal None [facility] Comment on above: Performed By: #### 2 683822 ####HEATHERHarmony RogersBacNohu9842 [place] [address] UA Clarity Cloudy Abnormal Clear [facility] Comment on above: Performed By: #### 2 100989 ####HEATHERHarmony RogersMewUdhf4513 [place] [phone] UA Leuk Est 1+ Abnormal Negative [facility] Comment on above: Performed By: #### 2 018494 ####HEATHER Youngo1025 [place] [address] UA Mucous Occasional Abnormal Trace [facility] Comment on above: Performed By: #### 2 942608 ####HEATHER Youngo1025 [place] [address] UA Nitrite Positive Abnormal Negative [facility] Comment on above: Performed By: #### 2 830487 ####HEATHER Youngo1025 [place] [address] UA pH 7.0 Normal 4.6-8.0 [facility] Comment on above: Performed By: #### 2 685907 ####HEATHER Youngo1025 [place] [address] UA Protein 2+ Abnormal Negative [facility] Comment on above: Performed By: #### 2 824055 ####HEATHER Youngo1025 [place] [address] UA Spec Grav 1.015 Normal 1.003-1.030 [facility] Comment on above: Performed By: #### 2 370971 ####HEATHER Youngo1025 [place] [address] UA Urobilinogen 4.0 mg/dL Abnormal [facility] Comment on above: Performed By: #### 2 279553 ####HEATHER Youngo1025 [place] [address] UA WBC >50 Abnormal 0-5 [facility] Comment on above: Performed By: #### 2 497680 ####HEATHER Youngo1025 [place] [address] Urobilinogen Test strip Qn (U) Negative Normal Negative [facility] Comment on above: Performed By: #### 2 157227 ####HEATHER Youngo1025 [place] [address] eGFRon 08-10-2017 eGFR AA >60 Normal [facility] Comment on above: Order Comment: Order added by Discern Expert. Performed By: #### 2 495670 ####HEATHER Youngo1025 [place] [address] GFR/1.73 sq M predicted among non-blacks MDRD vol rate/area (S/P/Bld) mL/min/{1.73_m2} Normal [facility] Comment on above: Order Comment: Order added by Discern Expert. Performed By: #### 2 788406 ####HEATHER Youngo1025 [place] [address] Auto Diffon 08-06-2017 Basophils Auto #/vol (Bld) 0.0 E3/mcL Normal 0.0-0.2 [facility] Comment on above: Order Comment: Order Added by Discern Expert. Performed By: #### 2 456175 ####HEATHER Youngo1025 [place] [address] Basophils/100 WBC Auto (Bld) 0.3 % Normal 0.0-2.0 [facility] Comment on above: Order Comment: Order Added by Discern Expert. Performed By: #### 2 457124 ####HEATHER Youngo1025 [place] [address] Eos Absolute 0.0 E3/mcL Normal 0.0-0.7 [facility] Comment on above: Order Comment: Order Added by Discern Expert. Performed By: #### 2 816225 ####HEATHER RogersUugLzqb6160 [place] [address] Eosinophils/100 WBC Auto (Bld) 0.4 % Normal 0.0-11.0 [facility] Comment on above: Order Comment: Order Added by Discern Expert. Performed By: #### 2 222726 ####HEATHER RogersZlyDmds9247 [place] [address] Lymphocytes Auto #/vol (Bld) 1.1 E3/mcL Low 1.2-3.4 [facility] Comment on above: Order Comment: Order Added by Discern Expert. Performed By: #### 2 061833 ####HEATHER RogersEilVdpt8441 [place] [address] Lymphocytes/100 WBC Auto (Bld) 10.1 % Low 20.0-55.0 [facility] Comment on above: Order Comment: Order Added by Discern Expert. Performed By: #### 2 687890 ####HEATHER RogersCspHdvb6257 [place] [address] [place] Absolute 0.6 E3/mcL Normal 0.0-0.7 [facility] Comment on above: Order Comment: Order Added by Discern Expert. Performed By: #### 2 946190 ####HEATHER Youngo1025 [place] [address] Monocytes/100 WBC Auto (Bld) 5.0 % Normal 0.0-10.0 [facility] Comment on above: Order Comment: Order Added by Discern Expert. Performed By: #### 2 626385 ####HEATHER Youngo1025 [place] [address] Neutro Absolute 9.4 E3/mcL High 1.4-6.5 [facility] Comment on above: Order Comment: Order Added by Discern Expert. Performed By: #### 2 330800 ####HEATHER Youngo1025 [place] [address] Neutro Auto 84.2 % High 37.0-75.0 [facility] Comment on above: Order Comment: Order Added by Discern Expert. Performed By: #### 2 424396 ####HEATHER Youngo1025 [place] [address] BMPon 08-06-2017 Creatinine mass conc 1.4 mg/dL High 0.6-1.3 [facility] Comment on above: Performed By: #### 2 133466 ####HEATHER Youngo1025 [place] [address] Urea nitrogen mass conc 18 mg/dL Normal 7-18 [facility] Comment on above: Performed By: #### 2 773879 ####HEATHER Youngo1025 [place] [address] Urea nitrogen/Creatinine mass ratio 12.9 ratio Normal 5.4-30.0 [facility] Comment on above: Performed By: #### 2 614721 ####HEATHER Youngo1025 [place] [address] Calcium mass conc 8.9 mg/dL Normal 8.4-10.2 [facility] Comment on above: Performed By: #### 2 674009 ####HEATHER Youngo1025 [place] [address] Chloride molar conc 106 mmol/L Normal 98-107 [facility] Comment on above: Performed By: #### 2 675284 ####HEATHER RogersOouSqoa1737 [place] [address] CO2 molar conc 24.6 mmol/L Normal 24.0-30.0 [facility] Comment on above: Performed By: #### 2 918010 ####HEATHER RogersXzuTeqt9836 [place] [address] Glucose mass conc 126 mg/dL High 70-99 [facility] Comment on above: Performed By: #### 2 196963 ####HEATHER Youngo1025 [place] [address] Potassium molar conc 3.7 mmol/L Normal 3.5-5.1 [facility] Comment on above: Performed By: #### 2 995833 ####HEATHER Youngo1025 [place] [address] Sodium molar conc 138 mmol/L Normal 136-145 [facility] Comment on above: Performed By: #### 2 246991 ####HEATHER Youngo1025 [place] [address] CBC w/ Auto Diffon 7 Erythrocyte distribution width Auto Ratio (RBC) 13.9 % Normal 11.5-14.5 [facility] Comment on above: Performed By: #### 2 728321 ####HEATHER Youngo1025 [place] [address] Hematocrit Auto Volume Fraction (Bld) 44.1 % Normal 42.0-52.0 [facility] Comment on above: Performed By: #### 2 932407 ####HEATHER Youngo1025 [place] [address] Hemoglobin mass conc (Bld) 15.0 g/dL Normal 13.5-18.0 [facility] Comment on above: Performed By: #### 2 433718 ####HEATHER RogersSjvHbmg3209 [place] [address] MCH Auto Entitic mass (RBC) 31.7 pg High 27.0-31.0 [facility] Comment on above: Performed By: #### 2 376156 ####HEATHER RogersNjuQmmk0777 [place] [phone] MCHC Auto mass conc (RBC) 34.0 g/dL Normal 33.0-37.0 [facility] Comment on above: Performed By: #### 2 146724 ####HEATHER Youngo1025 [place] [phone] MCV Auto Entitic volume (RBC) 93.1 fL Normal 78.0-100.0 [facility] Comment on above: Performed By: #### 2 090821 ####HEATHER Youngo1025 [place] [phone] Platelet mean volume Auto Entitic volume (Bld) 7.1 fL Low 7.4-11.0 [facility] Comment on above: Performed By: #### 2 875778 ####HEATHER Youngo1025 [place] [phone] Platelets Auto #/vol (Bld) 180 E3/mcL Normal 130-400 [facility] Comment on above: Performed By: #### 2 028774 ####HEATHER RogersQenBzsw2664 [place] [phone] RBC Auto #/vol (Bld) 4.73 E6/mcL Normal 3.90-6.10 [facility] Comment on above: Performed By: #### 2 484050 ####HEATHER Youngo1025 [place] [id number] WBC Auto #/vol (Bld) 11.2 E3/mcL High 3.6-11.0 [facility] Comment on above: Performed By: #### 2 681298 ####HEATHER RogersZtzPukv5991 [place] [id number] UA Completeon 08-06-2017 Color Nom (U) [place] Abnormal Yellow [facility] Comment on above: Performed By: #### 8 5044805 ####HEATHER Urinalysis Automated Uzezmxsflj1431 [place] [id number] Glucose mass conc (U) Negative Normal Negative [facility] Comment on above: Performed By: #### 8 9809849 ####HEATHER Urinalysis Automated Yedfheplvz7985 [place] [address] Ketones Ql (U) Trace Normal [facility] Comment on above: Performed By: #### 8 5577222 ####HEATHER Urinalysis Automated Jwducnxdvr2456 [place] [address] RBC Test strip #/vol (U) /uL Abnormal 0-3 [facility] Comment on above: Performed By: #### 8 [id number] ####HEATHER Urinalysis Automated [address] [place] [address] UA Blood 3+ Normal Negative [facility] Comment on above: Result Comment: High concentration of Ascorbic Acid present in urine. This may cause False Negative Occ Blood. Review microscopic results and patient's clinical symptoms. Performed By: #### 8 0015410 ####HEATHER Urinalysis Automated [address]ub[address] [place] [address] UA Ascorbic Acid 40 mg/dL High <=19 [facility] Comment on above: Performed By: #### 8 1555365 ####HEATHER Urinalysis Automated [address] [place] [address] UA Clarity Cloudy Abnormal Clear [facility] Comment on above: Performed By: #### 8 4028166 ####HEATHER Urinalysis Automated [address] [place] [address] UA Leuk Est Negative Normal Negative [facility] Comment on above: Performed By: #### 8 3068322 ####HEATHER Urinalysis Automated [address] [place] [address] UA Mucous Trace Abnormal Trace [facility] Comment on above: Performed By: #### 8 4060020 ####HEATHER Urinalysis Automated [address] [place] [address] UA Nitrite Negative Normal Negative [facility] Comment on above: Performed By: #### 8 8320013 ####HEATHER Urinalysis Automated [address] [place] [address] UA pH 5.0 Normal 4.6-8.0 [facility] Comment on above: Performed By: #### 8 [id number] ####HEATHER Urinalysis Automated [address] [place] [address] UA Protein 2+ Abnormal Negative [facility] Comment on above: Performed By: #### 8 [id number] ####HEATHER Urinalysis Automated Qxgnempppl7558 [place] [address] UA Spec Grav 1.023 Normal 1.003-1.030 [facility] Comment on above: Performed By: #### 8 [id number] ####HEATHER Urinalysis Automated Xrkrraeper7266 [place] [address] UA Squam Epithelial 0-5 Normal 0-5 [facility] Comment on above: Performed By: #### 8 [id number] ####HEATHER Urinalysis Automated Mvkngqymfg1915 [place] [address] UA Urobilinogen Negative Normal [facility] Comment on above: Performed By: #### 8 [id number] ####HEATHER Urinalysis Automated Lwfdntqrys9220 [place] [address] Urobilinogen Test strip Qn (U) Negative Normal Negative [facility] Comment on above: Performed By: #### 8 [id number] ####HEATHER Urinalysis Automated [address] [place] [address] XR Abdomen APon 08-06-2017 XR Abdomen AP [...] by: Koki SKY, Figueroa Technologist: SULLY Normal [facility] eGFRon 08-06-2017 eGFR AA >60 Normal [facility] Comment on above: Order Comment: Order added by Cristina Expert. Performed By: #### 2 [id number] ####HEATHER Youngo1025 [place] [address] GFR/1.73 sq M predicted among non-blacks MDRD vol rate/area (S/P/Bld) 52 mL/min/1.73 m2 Normal [facility] Comment on above: Order Comment: Order added by Cristina Expert. Performed By: #### 2 [id number] ####HEATHER RogersHguIyft2677 [place] [address] Auto Diffon 08-03-2017 Basophils Auto #/vol (Bld) 0.0 E3/mcL Normal 0.0-0.2 [facility] Comment on above: Order Comment: Order Added by Cristina Expert. Performed By: #### 2 [id number] ####HEATHER RogersKnpQxfe4537 [place] [address] Basophils/100 WBC Auto (Bld) 0.5 % Normal 0.0-2.0 [facility] Comment on above: Order Comment: Order Added by Cristina Expert. Performed By: #### 2 [id number] ####HEATHER RogersQjgWykm9303 [place] [address] Eos Absolute 0.1 E3/mcL Normal 0.0-0.7 [facility] Comment on above: Order Comment: Order Added by Cristina Expert. Performed By: #### 2 [id number] ####HEATHER RogersBsqAely0832 [place] [address] Eosinophils/100 WBC Auto (Bld) 1.2 % Normal 0.0-11.0 [facility] Comment on above: Order Comment: Order Added by Cristina Expert. Performed By: #### 2 [id number] ####HEATHER RogersQteHfel7337 [place] [address] Lymphocytes Auto #/vol (Bld) 2.1 E3/mcL Normal 1.2-3.4 [facility] Comment on above: Order Comment: Order Added by Cristina Expert. Performed By: #### 2 [id number] ####HEATHER [address]go1025 [place] [address] Lymphocytes/100 WBC Auto (Bld) 26.4 % Normal 20.0-55.0 [facility] Comment on above: Order Comment: Order Added by Discern Expert. Performed By: #### 2 [id number] ####HEATHER Youngo1025 [place] [address] [place] Absolute 0.5 E3/mcL Normal 0.0-0.7 [facility] Comment on above: Order Comment: Order Added by Discern Expert. Performed By: #### 2 [id number] ####HEATHER Youngo1025 [place] [address] Monocytes/100 WBC Auto (Bld) 6.0 % Normal 0.0-10.0 [facility] Comment on above: Order Comment: Order Added by Discern Expert. Performed By: #### 2 [id number] ####HEATHER Youngo[address]25 [place] [address] Neutro Absolute 5.4 E3/mcL Normal 1.4-6.5 [facility] Comment on above: Order Comment: Order Added by Discern Expert. Performed By: #### 2 [id number] ####HEATHER [address]go1025 [place] [address] Neutro Auto 65.9 % Normal 37.0-75.0 [facility] Comment on above: Order Comment: Order Added by Discern Expert. Performed By: #### 2 [id number] ####HEATHER [address]25 [place] [address] BMPon 08-03-2017 Creatinine mass conc 1.0 mg/dL Normal 0.6-1.3 [facility] Comment on above: Performed By: #### 2 [id number] ####HEATHER RogersOkiUjvy9615 [place] [address] Urea nitrogen mass conc 13 mg/dL Normal 7-18 [facility] Comment on above: Performed By: #### 2 [id number] ####HEATHER RogersRzcBfof5127 [place] [address] Urea nitrogen/Creatinine mass ratio 13.0 ratio Normal 5.4-30.0 [facility] Comment on above: Performed By: #### 2 [id number] ####HEATHER VhrSoiw6778 [place] [address] Calcium mass conc 9.0 mg/dL Normal 8.4-10.2 [facility] Comment on above: Performed By: #### 2 [id number] ####HEATHER UwoLolv5755 [place] [address] Chloride molar conc 111 mmol/L High 98-107 [facility] Comment on above: Performed By: #### 2 [id number] ####HEATHER YiyMbpu7440 [place] [address] CO2 molar conc 24.2 mmol/L Normal 24.0-30.0 [facility] Comment on above: Performed By: #### 2 [id number] ####HEATHER ZdqJtje6186 [place] [address] Glucose mass conc 102 mg/dL High 70-99 [facility] Comment on above: Performed By: #### 2 309158 ####HEATHER QjtHkfn9330 [place] [address] Potassium molar conc 3.8 mmol/L Normal 3.5-5.1 [facility] Comment on above: Performed By: #### 2 468642 ####HEATHER KihAjrw0800 [place] [address] Sodium molar conc 142 mmol/L Normal 136-145 [facility] Comment on above: Performed By: #### 2 [id number] ####HEATHER YpnEjpn3794 [place] [address] CBC w/ Auto Diffon 7 Erythrocyte distribution width Auto Ratio (RBC) 14.2 % Normal 11.5-14.5 [facility] Comment on above: Performed By: #### 2 [id number] ####HEATHER RogersFzmDkag2822 [place] [address] Hematocrit Auto Volume Fraction (Bld) 49.1 % Normal 42.0-52.0 [facility] Comment on above: Performed By: #### 2 [id number] ####HEATHER RogersEajBcow1530 [place] [address] Hemoglobin mass conc (Bld) 16.6 g/dL Normal 13.5-18.0 [facility] Comment on above: Performed By: #### 2 [id number] ####HEATHERHarmony YoungMdvEjnx0238 [place] [id number] MCH Auto Entitic mass (RBC) 31.8 pg High 27.0-31.0 [facility] Comment on above: Performed By: #### 2 884786 ####HEATHERHarmony YoungVwvFilv7024 [place] [id number] MCHC Auto mass conc (RBC) 33.8 g/dL Normal 33.0-37.0 [facility] Comment on above: Performed By: #### 2 [id number] ####HEATHERHarmony YoungTxkZfoj4923 [place] [address] MCV Auto Entitic volume (RBC) 94.0 fL Normal 78.0-100.0 [facility] Comment on above: Performed By: #### 2 [id number] ####HEATHERHarmony YoungGvoIbeu6199 [place] [address] Platelet mean volume Auto Entitic volume (Bld) 6.9 fL Low 7.4-11.0 [facility] Comment on above: Performed By: #### 2 [id number] ####HEATHER XxcZchp6485 [place] [address] Platelets Auto #/vol (Bld) 191 E3/mcL Normal 130-400 [facility] Comment on above: Performed By: #### 2 [id number] ####HEATHERHarmony RogersNmnMfvb5436 [place] [id number] RBC Auto #/vol (Bld) 5.23 E6/mcL Normal 3.90-6.10 [facility] Comment on above: Performed By: #### 2 [id number] ####HEATHER CbmTrsw9243 [place] [address] WBC Auto #/vol (Bld) 8.1 E3/mcL Normal 3.6-11.0 [facility] Comment on above: Performed By: #### 2 [id number] ####HEATHERHarmony RogersPkxByuy4511 [place] [id number] CT Abdomen/Pelvis w/o Contra ston 08-03-2017 CT [...] by: Blair Galvin MD Technologist: LILIAN Normal [facility] UA Completeon 08-03-2017 Color Nom (U) [place] Abnormal Yellow [facility] Comment on above: Performed By: #### 8 [id number] ####HEATHER Urinalysis Automated Wkpcqldqeh5673 [place] [address] Glucose mass conc (U) Negative Normal Negative [facility] Comment on above: Performed By: #### 8 [id number] ####HEATHER Urinalysis Automated [address] [place] [address] Ketones Ql (U) Trace Normal [facility] Comment on above: Performed By: #### 8 [id number] ####HEATHER Urinalysis Automated [address] [place] [address] RBC Test strip #/vol (U) /uL Abnormal 0-3 [facility] Comment on above: Performed By: #### 8 [id number] ####HEATHER Urinalysis Automated [address] [place] [address] UA Blood 3+ Normal Negative [facility] Comment on above: Result Comment: High concentration of Ascorbic Acid present in urine. This may cause False Negative Occ Blood. Review microscopic results and patient's clinical symptoms. Performed By: #### 8 [id number] ####HEATHER Urinalysis Automated [address] [place] [address] UA Ascorbic Acid 40 mg/dL High <=19 [facility] Comment on above: Performed By: #### 8 [id number] ####HEATHER Urinalysis Automated [address] [place] [address] UA Clarity Cloudy Abnormal Clear [facility] Comment on above: Performed By: #### 8 [id number] ####HEATHER Urinalysis Automated [address] [place] [address] UA Leuk Est Trace Normal Negative [facility] Comment on above: Performed By: #### 8 [id number] ####HEATHER Urinalysis Automated Ryjc[address]ldhz7593 [place] [address] UA Mucous Many Abnormal Trace [facility] Comment on above: Performed By: #### 8 [id number] ####HEATHER Urinalysis Automated [address] [place] [address] UA Nitrite Negative Normal Negative [facility] Comment on above: Performed By: #### 8 [id number] ####HEATHER Urinalysis Automated [address] [place] [address] UA pH 5.0 Normal 4.6-8.0 [facility] Comment on above: Performed By: #### 8 [id number] ####HEATHER Urinalysis Automated Zukmwztvgx1824 [place] [address] UA Protein 2+ Abnormal Negative [facility] Comment on above: Performed By: #### 8 [id number] ####HEATHER Urinalysis Automated [address] [place] [address] UA Spec Grav 1.019 Normal 1.003-1.030 [facility] Comment on above: Performed By: #### 8 [id number] ####HEATHER Urinalysis Automated I[address]drcrf[address] [place] [address] UA Urobilinogen Negative Normal [facility] Comment on above: Performed By: #### 8 [id number] ####HEATHER Urinalysis Automated [address] [place] [address] UA WBC >50 Abnormal 0-5 [facility] Comment on above: Performed By: #### 8 [id number] ####HEATHER Urinalysis Automated [address]ro[address] [place] [address] Urobilinogen Test strip Qn (U) Negative Normal Negative [facility] Comment on above: Performed By: #### 8 [id number] ####HEATHER Urinalysis Automated [address]av[address] [place] [address] eGFRon 08-03-2017 eGFR AA >60 Normal [facility] Comment on above: Order Comment: Order added by Discern Expert. Performed By: #### 1 [id number] ####HEATHER OrxLcxy4650 [place] [id number] GFR/1.73 sq M predicted among non-blacks MDRD vol rate/area (S/P/Bld) mL/min/{1.73_m2} Normal [facility] Comment on above: Order Comment: Order added by Discern Expert. Performed By: #### 1 [id number] ####HEATHER IrlBeko4140 [place] [id number] TSHon 05-19-2017 Thyrotropin Qn 0.86 mIU/m Normal 0.30-5.60 [facility] Comment on above: Performed By: #### 2 [id number] ####HEATHER CyqPikt8043 [place] [address] Vital Signs Date Time Vital Sign Value Performing Clinician Facility 05-05-2025 01:59-0400 Body temperature 96.91 [degF] Elicia Love DO Work Phone: [facility] 05-05-2025 01:59-0400 Diastolic blood pressure 75 mm[Hg] Elicia Batistaersen DO Work Phone: 0(274)437-471752 [place] [address] 05-05-2025 01:59-0400 Heart rate 67 /min Elicia Batistaersen DO Work Phone: 9(027)142-235404 [place] [address] 05-05-2025 01:59-0400 Respiratory rate 16 /min Elicia Love DO Work Phone: 4(170)[phone] [place] [address] 05-05-2025 01:59-0400 Systolic blood pressure 157 mm[Hg] Elicia Batistaersen DO Work Phone: 4(316)119-137604 [place] [address] 05-05-2025 01:58-0400 SaO2% (BldA) [Mass fraction] 96 % Elicia Batistaersen DO Work Phone: 6(980)751-193552 [place] [address] 05-04-2025 21:54-0400 Body height 175.3 cm Elicia Batistaersen DO Work Phone: 8(621)[phone] [place] [address] 05-04-2025 21:54-0400 Body mass index (BMI) [Ratio] 35.44 kg/m2 Elicia Batistaersen DO Work Phone: 5(016)244-159452 [place] [address] 05-04-2025 21:54-0400 Body weight 108.86 kg Elicia Batistaersen DO Work Phone: [facility] 04-25-2025 17:15-0400 Body temperature 97.3 [degF] Dr. Jarad Rey MD Work Phone: [facility] 04-25-2025 17:15-0400 Diastolic blood pressure 85 mm[Hg] Dr. Jarad Rey MD Work Phone: [facility] 04-25-2025 17:15-0400 Heart rate 56 /min Dr. Jarad Rey MD Work Phone: [facility] 04-25-2025 17:15-0400 Respiratory rate 16 /min Dr. Jarad Rey MD Work Phone: [facility] 04-25-2025 17:15-0400 SaO2% (BldA) [Mass fraction] 100 % Dr. Jarad Rey MD Work Phone: [facility] 04-25-2025 17:15-0400 Systolic blood pressure 152 mm[Hg] Dr. Jarad Rey MD Work Phone: [facility] 04-25-2025 12:03-0400 Body height 175.[address] Jarad Rey MD Work Phone: [facility] 04-25-2025 12:03-0400 Body mass index (BMI) [Ratio] 36.1 kg/m2 Dr. Jarad Rey MD Work Phone: [facility] 04-25-2025 12:03-0400 Body weight [address] Jarad Rey MD Work Phone: [facility] 03-25-2025 22:58-0400 Diastolic blood pressure 99 mm[Hg] Zak Alvarez MD Work Phone: [facility] 03-25-2025 22:58-0400 Heart rate 58 /min Zak Alvarez MD Work Phone: [facility] 03-25-2025 22:58-0400 Respiratory rate 16 /min Zak Alvarez MD Work Phone: [facility] 03-25-2025 22:58-0400 SaO2% (BldA) [Mass fraction] 96 % Zak Alvarez MD Work Phone: [facility] 03-25-2025 22:58-0400 Systolic blood pressure 155 mm[Hg] Zak Alvarez MD Work Phone: [facility] 03-25-2025 21:41-0400 Body height 175.3 cm Zak Alvarez MD Work Phone: [facility] 03-25-2025 21:41-0400 Body mass index (BMI) [Ratio] 36.18 kg/m2 Zak Alvarez MD Work Phone: [facility] 03-25-2025 21:41-0400 Body temperature 97.59 [degF] Zak Alvarez MD Work Phone: [facility] 03-25-2025 21:41-0400 Body weight 111.13 kg Zak Alvarez MD Work Phone: [facility] 09-13-2024 10:56-0500 Body mass index (BMI) [Ratio] 35.29 kg/m2 Isabela Bazan MD Work Phone: 4(876)763-912133 [place] [address] 09-13-2024 10:56-0500 Body weight 108.41 kg Isabela Bazan MD Work Phone: 3(659)383-464059 [place] [address] 09-13-2024 10:56-0500 Diastolic blood pressure 90 mm[Hg] Isabela Bazan MD Work Phone: 1(779)062-608333 [place] [address] 09-13-2024 10:56-0500 Heart rate 61 /min Isabela Bazan MD Work Phone: 8(614)345-131733 [place] [address] 09-13-2024 10:56-0500 Systolic blood pressure 150 mm[Hg] Isabela Bazan MD Work Phone: [facility] 02-23-2024 11:08-0400 Body mass index (BMI) [Ratio] 34.11 kg/m2 Isabela Bazan MD Work Phone: 6(878)840-840733 [place] [address] 02-23-2024 11:08-0400 Body weight 104.78 kg Isabela Bazan MD Work Phone: 9(819)459-348733 [place] [address] 02-23-2024 11:08-0400 Respiratory rate 16 /min Isabela Bazan MD Work Phone: 0(616)200-889659 [place] [address] 11-15-2023 15:27-0400 Body mass index (BMI) [Ratio] 33.97 kg/m2 Isabela Bazan MD Work Phone: [facility] 11-15-2023 15:27-0400 Body weight 104.33 kg Isabela Bazan MD Work Phone: [facility] 11-15-2023 15:27-0400 Respiratory rate 16 /min Isabela Bazan MD Work Phone: [facility] 11-09-2023 21:02-0400 Diastolic blood pressure 71 mm[Hg] Jarad [place] MD Work Phone: [facility] 11-09-2023 21:02-0400 Heart rate 74 /min Jarad Rey MD Work Phone: [facility] 11-09-2023 21:02-0400 Respiratory rate 16 /min Jarad Rey MD Work Phone: [facility] 11-09-2023 21:02-0400 SaO2% (BldA) [Mass fraction] 95 % Jarad Rey MD Work Phone: [facility] 11-09-2023 21:02-0400 Systolic blood pressure 121 mm[Hg] Jarad Rey MD Work Phone: [facility] 11-09-2023 18:33-0400 Body height 175.3 cm Jarad Rey MD Work Phone: [facility] 11-09-2023 18:33-0400 Body mass index (BMI) [Ratio] 33.97 kg/m2 Jarad Rey MD Work Phone: [facility] 11-09-2023 18:33-0400 Body temperature 98.29 [degF] Jarad Rey MD Work Phone: [facility] 11-09-2023 18:33-0400 Body weight 104.33 kg Jarad Rey MD Work Phone: [facility] 11-01-2023 10:15-0500 Body weight 107.05 kg Isabela Bazan MD Work Phone: [facility] 10-07-2023 10:21-0500 Body weight 107.05 kg Isabela Bazan MD Work Phone: [facility] 10-07-2023 10:21-0500 Respiratory rate 16 /min Isabela Bazan MD Work Phone: [facility] 02-17-2021 20:57-0400 Body height 175.3 cm Oscar Dickens MD Work Phone: [employer] Work Phone: 02-17-2021 20:57-0400 Body mass index (BMI) [Ratio] 34.7 kg/m2 Oscar Dickens MD Work Phone: [employer] Work Phone: 02-17-2021 20:57-0400 Body temperature 98.8 [degF] Oscar Dickens MD Work Phone: [employer] Work Phone: 02-17-2021 20:57-0400 Body weight 106.59 kg Oscar Dickens MD Work Phone: [employer] Work Phone: 02-17-2021 20:57-0400 Diastolic blood pressure 82 mm[Hg] Oscar Dickens MD Work Phone: [employer] Work Phone: 02-17-2021 20:57-0400 Heart rate 63 /min Oscar Dickens MD Work Phone: [employer] Work Phone: 02-17-2021 20:57-0400 Respiratory rate 16 /min Oscar Dickens MD Work Phone: [employer] Work Phone: 02-17-2021 20:57-0400 SaO2% (BldA) [Mass fraction] 96 % Oscar Dickens MD Work Phone: [employer] Work Phone: 02-17-2021 20:57-0400 Systolic blood pressure 145 mm[Hg] Oscar Dickens MD Work Phone: [employer] Work Phone: 09-14-2019 09:55-0500 Diastolic blood pressure 63 mm[Hg] Familia Oliva MD Work Phone: [employer] Work Phone: 09-14-2019 09:55-0500 Heart rate 65 /min Familia Oliva MD Work Phone: [employer] Work Phone: 09-14-2019 09:55-0500 Respiratory rate 16 /min Familia Oliva MD Work Phone: [employer] Work Phone: 09-14-2019 09:55-0500 SaO2% (BldA) [Mass fraction] 95 % Familia Oliva MD Work Phone: [employer] Work Phone: 09-14-2019 09:55-0500 Systolic blood pressure 135 mm[Hg] Familia Oliva MD Work Phone: [employer] Work Phone: 09-14-2019 09:30-0500 Body temperature 97.59 [degF] Familia Oliva MD Work Phone: [employer] Work Phone: 09-14-2019 07:16-0500 Body height 175.3 cm Familia Oliva MD Work Phone: [employer] Work Phone: 09-14-2019 07:16-0500 Body mass index (BMI) [Ratio] 34.7 kg/m2 Familia Oliva MD Work Phone: [employer] Work Phone: 09-14-2019 07:16-0500 Body weight 106.59 kg Familia Oliva MD Work Phone: [facility] Work Phone: 05-19-2017 14:04-0400 BMI (Body Mass Index) 32.93 kg/m2 Trace [facility] Work Phone: 05-19-2017 14:04-0400 BP Diastolic 72 mm[Hg] [facility] Work Phone: 05-19-2017 14:04-0400 BP Systolic 125 mm[Hg] [facility] Work Phone: 05-19-2017 14:04-0400 Height 175.3 cm [facility] Work Phone: 05-19-2017 14:04-0400 Pulse (Heart Rate) 49 /min [facility] Work Phone: 05-19-2017 14:04-0400 Pulse Oximetry 96 % [facility] Work Phone: 05-19-2017 14:04-0400 Weight 101.15 kg Trace [facility] Work Phone: Encounters Encounter Date Encounter Type Care Provider Facility Start: 05-04-2025 End: 05-05-2025 Emergency department patient visit Elicia Love DO Work Phone: [facility] Comment on above: Ureteral calculus (P rimary Dx) Start: 04-25-2025 End: 04-25-2025 Admission to same day surgery center Dr. Harjit Lam MD -[facility] Start: 04-25-2025 End: 04-25-[address] Jarad [place] MD Work Phone: -[facility] Start: 04-10-2025 End: 04-10-[address] Jarad [place] MD Work Phone: -Radiology [facility] Start: 04-10-2025 End: 04-10-2025 Patient encounter procedure Melba Barr -Radiology [facility] Work Phone: Start: 04-09-2025 End: 04-11-2025 ambulatory [facility] Start: 04-09-2025 End: 04-11-2025 Subsequent hospital visit by physician Kaylynn Ashton MD Work Phone: [facility] Comment on above: Gallbladder polyp Start: 03-25-2025 End: 03-26-2025 Emergency department patient visit Zak Alvarez MD Work Phone: [facility] Comment on above: Hemorrhagic cystitis (Primary Dx) Start: 09-13-2024 End: 09-13-2024 Office outpatient visit 25 minutes Isabela Bazan MD Work Phone: [facility] Comment on above: History of kidney st ones; Benign prostatic hyperplasia with lower urinary tract symptoms, symptom details unspecified; Nocturia Start: 09-13-2024 End: 09-13-2024 Subsequent hospital visit by physician German Acevedo X-Ray [facility] Comment on above: History of kidney st ones Start: 09-13-2024 End: 09-13-2024 ambulatory [facility] Start: 06-26-2024 End: 06-26-2024 ambulatory [facility] Start: 06-26-2024 End: 06-26-2024 Encounter for general adult medical examination without abnormal findings [facility] Start: 06-26-2024 End: 06-26-2024 Patient encounter procedure Jarad [place] MD Work Phone[facility] Start: 06-26-2024 End: 06-26-2024 Subsequent hospital visit by physician Jarad Rey MD Work Phone: [facility] Comment on above: Encounter for annual wellness exam in Medicare patient Start: 02-23-2024 End: 02-23-2024 Office outpatient visit 25 minutes Isabela Bazan MD Work Phone: [facility] Comment on above: Benign prostatic hyp erplasia with lower urinary tract symptoms, symptom details unspecified (Primary Dx); History of kidney stones; Nocturia Start: 02-23-2024 End: 02-23-2024 Subsequent hospital visit by physician German Acevedo X-Ray [facility] Comment on above: History of kidney st ones Start: 02-23-2024 End: 02-23-2024 ambulatory [facility] Start: 12-16-2023 End: 12-16-2023 Office outpatient visit 25 minutes Isabela Bazan MD Work Phone: [facility] Comment on above: History of kidney st ones; Nocturia; Benign prostatic hyperplasia with lower urinary tract symptoms, symptom details unspecified Start: 12-16-2023 End: 12-16-2023 ambulatory [facility] Start: 11-15-2023 End: 11-15-2023 Office outpatient visit 25 minutes Isabela Bazan MD Work Phone: [facility] Comment on above: Benign prostatic hyp erplasia with lower urinary tract symptoms, symptom details unspecified; Dysuria; History of kidney stones; Nocturia; Retention of urine Start: 11-15-2023 End: 11-15-2023 [facility] Start: 11-10-2023 End: 11-10-2023 Office outpatient visit 25 minutes Isabela Bazan MD Work Phone: [facility] Comment on above: Nocturia; Dysuria; Benign prostatic hyperplasia with lower urinary tract symptoms, symptom details unspecified Start: 11-10-2023 End: 11-10-2023 ambulatory [facility] Start: 11-09-2023 End: 11-09-2023 Emergency department patient visit Jarad Rey MD Work Phone: [facility] Comment on above: Urinary retention (P rimary Dx); Urinary tract infection with hematuria, site unspecified Start: 11-08-2023 End: 11-09-2023 [facility] Start: 11-08-2023 End: 11-08-2023 Phys/qhp telephone evaluation 11-20 min Isabela aBzan MD Work Phone: [facility] Comment on above: Nocturia; Benign prostatic hyperplasia with lower urinary tract symptoms, symptom details unspecified; History of kidney stones; Dysuria Start: 11-08-2023 End: 11-08-2023 ambulatory [facility] Start: 11-01-2023 End: 11-01-2023 Patient encounter procedure Isabela Bazan MD Work Phone: [facility] Comment on above: Hematuria, unspecifi ed type (Primary Dx) Start: 11-01-2023 End: 11-01-2023 [facility] Ambulatory Start: 10-07-2023 End: 10-08-2023 [facility] Start: 10-07-2023 End: 10-07-2023 Subsequent hospital visit by physician German Hdez X-Ray [facility] Comment on above: History of kidney st ones Start: 10-07-2023 End: 10-07-2023 Office outpatient new 45 minutes Isabela Bazan MD Work Phone: [facility] Comment on above: Benign prostatic hyp erplasia with lower urinary tract symptoms, symptom details unspecified; Nocturia; History of kidney stones Start: 10-07-2023 End: 10-07-2023 ambulatory [facility] Ambulatory Start: 08-17-2023 End: 08-17-[address] [facility] Start: 12-29-2022 End: 01-02-2023 ambulatory [facility] Start: 06-15-2022 End: 06-15-2022 Subsequent hospital visit by physician Jarad Rey MD Work Phone: [facility] Start: 04-02-2022 End: 04-04-2022 Subsequent hospital visit by physician Serrano X-Ray Room [facility] Radiology Comment on above: SOB (shortness of br eath) Start: 04-02-2022 End: 04-04-2022 Subsequent hospital visit by physician Jarad Rey MD Work Phone: [facility] Comment on above: SOB (shortness of br eath) Start: 01-05-2022 Patient encounter procedure Jarad Rey Work Phone: [facility] Work Phone: Start: 07-03-2021 End: 07-03-2021 Subsequent [...] physician Adina Nuc Med Injection Room 1 [facility] Nuclear Medicine Comment on above: THURMAN (dyspnea on exer tion) Start: 02-17-2021 End: 02-17-2021 Emergency department patient visit Oscar Dickens MD Work Phone: [facility] ED Comment on above: Right [...] hospital visit by physician Noel Ekg [facility] Cardiopulmonary Department Comment on above: PVC (premature ventr icular contraction) Start: 05-24-2018 End: 05-24-2018 Patient encounter ESA CASTAÑEDA Facility:[id number] Start: 05-04-2018 Patient encounter Esa Castañeda Fac ility:[facility] Start: 05-04-2018 Patient encounter Esa Dickenscatalinasabrina Fac ility:[facility] Start: 04-26-2018 Patient encounter JUSTUS Hector ity:[facility] Start: 04-26-2018 End: 04-26-2018 Patient encounter Aramis Beaulieu Facility:[facility] Start: 01-05-2018 End: 01-06-2018 Patient encounter Isabela Bazan [facility] Start: 12-09-2017 End: 12-10-2017 Patient encounter Aramis Beaulieu Facility:[facility] Start: 10-26-2017 End: 10-26-2017 Patient encounter Aramis Beaulieu Facility:[facility] Start: 10-25-2017 End: 10-26-2017 Patient encounter Aramis Beaulieu Facility:[facility] Start: 10-15-2017 Patient encounter ARAMIS Ruth acility:[facility] Start: 10-06-2017 End: 10-07-2017 Patient encounter Isabela Bazan [facility] Start: 09-28-2017 End: 09-28-2017 Patient encounter Isabela Bazan Facility:[facility] Start: 09-10-2017 End: 09-11-2017 Patient encounter Isabela Bazan [facility] Start: 08-20-2017 End: 08-20-2017 Patient encounter Aramis Beaulieu Facility:[facility] Start: 08-19-2017 End: 08-20-2017 Patient encounter Isabela Bazan Facility:[facility] Start: 08-11-2017 End: 08-12-2017 Patient encounter Isabela Bazan Facility:[facility] Start: 08-10-2017 End: 08-10-2017 Emergency department patient visit Aramis Beaulieu Facility:[facility] Start: 08-06-2017 End: 08-06-2017 Patient encounter Aramis Beaulieu Facility:[facility] Start: 08-03-2017 End: 08-03-2017 Emergency department patient visit Aramis Beaulieu Facility:[facility] Start: 06-28-2017 Ambulatory TRACE ETIENNE BARRETO [facility] Ambulatory Start: 05-26-2017 Ambulatory TRACE ETIENNE [facility] Ambulatory Start: 05-19-2017 End: 05-25-2017 Ambulatory TRACE ETIENNE [facility]ul[facility] Start: 05-19-2017 Office [facility] Work Phone: [facility] Start: 06-10-2015 Refill Pat edouard WELDING [employer]ACHINE [employer] Work Phone: [facility] Comment on above: Medication Refill Start: 06-03-2015 Refill Briana Gan WELDING 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 [employer] Work Phone: [facility] Comment on [...] MD Work Phone: Start: 06-12-2021 PSA screening Jaard vegas MD Work Phone: Comment on above: [...] cancer screen colonoscopy Colon cancer screen colonoscopy [facility] Work Phone: Start: 09-14-2029 Screening for malign ant neoplasm of colon [facility] Start: 08-17-2028 [facility]ening for malign [facility] Start: 06-26-2027 Diabetes screen Diabetes screen [facility] Start: 06-11-2026 Diabetes screen [facility] Start: 01-16-2026 End: 01-16-2026 Patient encounter procedure 01/16/2026 10:30 AM EDT Office Visit [facility] Pulmonology [address] [facility] [address] [place] [address] George Hernandez MD [address] [place] [address] 9M FU [facility] Pulmonology Comment on above: 9M FU Start: 07-12-2025 End: 07-12-2025 Patient encounter procedure 07/12/2025 12:30 PM EST Office Visit [facility] Cardiology [address] [place] [address] Justin Espinoza MD [address] [facility] [address] [place] [address] 6 month follow up [facility] Cardiology Comment on above: 6 month follow up Start: 06-27-2025 Annual Wellness Visi t (Medicare) Annual Wellness Visit (Medicare) [facility] Start: 06-27-2025 End: 06-27-2025 Patient encounter procedure 06/27/2025 1:00 PM EDT Office Visit [facility] Primary Care [address] [place] [address] Jarad Rey MD [address] [place] [address] awv [facility] Primary Care Comment on above: awv Start: 06-26-2025 Lipid panel Lipids [facility] Start: 06-25-2025 Depression Screen Depression Screen [facility] Start: 04-30-2025 COVID-19 Vaccine ( season) COVID-19 Vaccine ( season) [facility] Start: 04-30-2025 Influenza vaccination Influenza Vacc ine (#1) [facility] Start: 04-26-2025 End: 04-26-2025 Patient encounter procedure 04/26/2025 10:30 AM EDT Office Visit [facility] General Surgery [address] [facility] [address] [place] [address] Kaylynn Ashton MD [address] [facility] [address] [place] [id number] 1 yr GB [facility] General Surgery Comment on above: 1 yr [facility] Start: 04-25-2025 Ambulation without limitation [facility] Start: 04-25-2025 Medical regimen orde rs management [facility] Start: 04-25-2025 Medication education [facility] Start: 04-25-2025 Patient discharge [facility] Start: 04-25-2025 Taking patient vital signs [facility] Start: 04-25-2025 [facility] Start: 04-25-2025 Plain X-ray abdomen Abdomen Single V iew [facility] Start: 04-25-2025 XR Abdomen Single view [facility] Start: 03-30-2025 Influenza vaccination Flu vaccine (# 1) [facility] Start: 10-07-2024 Prostate specific antigen measurement PSA Prostate Cancer Screening [facility] Start: 09-20-2024 End: 09-20-2024 Patient encounter procedure 09/20/2024 10:45 AM EST Office Visit [facility] [address] [facility] [address] [place] [id number] Isabela Bazan MD [address] [place] [address] [facility] Start: 09-13-2024 End: 09-13-2025 Basic metabolic 2000 panel - Serum or Plasma Basic Metabolic Panel Lab Routine Nocturia Expected: 09/13/2024 (Approximate), Expires: 09/13/2025 [facility] Work Phone: Comment on above: Expected: 09/13/2024 (Approximate), Expires: 09/13/2025 Start: 09-13-2024 End: 09-13-2025 Prostate specific Ag [Mass/volume] in Serum or Plasma Prostate Specific Antigen Lab Routine Nocturia Expected: 09/13/2024 (Approximate), Expires: 09/13/2025 [facility] Work Phone: Comment on above: Expected: 09/13/2024 (Approximate), Expires: 09/13/2025 Start: 09-13-2024 End: 09-13-2025 US Kidney - bilateral and Urinary bladder US renal complete Imaging Routine History of kidney stones Expected: 09/13/2024 (Approximate), Expires: 09/13/2025 [facility] Work Phone: Comment on above: Expected: 09/13/2024 (Approximate), Expires: 09/13/2025 Start: 07-30-2024 End: 02-22-2025 XR Abdomen Single view XR abdomen 1 view Imaging Routine History of kidney stones Expected: 07/30/2024, Expires: 02/22/2025 [facility] Work Phone: Comment on above: Expected: 07/30/2024 , Expires: 02/22/2025 Start: 07-05-2024 End: 07-05-2024 Patient encounter procedure 07/05/2024 10:00 AM EST Office Visit [facility] Pulmonology [address] [facility] [address] [place] [address] George Hernandez MD [address] [place] [address] 9M F/U [facility] Pulmonology Comment on above: 9M F/U Start: 06-29-2024 End: 06-29-2024 Patient encounter procedure 06/29/2024 9:45 AM EDT Office Visit [facility] Cardiology [address] [place] [address] Justin Espinoza MD [address] [facility] [address] [place] [address] 6 month follow up [facility] Cardiology Comment on above: 6 month follow up Start: 06-12-2024 Diabetes screen Diabetes screen [facility] Start: 06-12-2024 End: 06-12-2024 Patient encounter procedure 06/12/2024 10:15 AM EDT Office Visit [facility] [address] [facility] [address] [place] [address] Isabela Bazan MD [address] [place] [address] [facility] Start: 06-11-2024 [facility] Start: 05-15-2024 End: 05-15-2024 Patient encounter procedure 05/15/2024 10:00 AM EDT Office Visit [facility] [address] [place] [address] Isabela Bazan MD [address] [place] [address] [facility] Start: 04-30-2024 COVID-19 Vaccine ( season) COVID-19 Vaccine ( season) [facility] Start: 04-30-2024 COVID-19 Vaccine ( season) COVID-19 Vaccine ( season) [facility] Start: 04-30-2024 Influenza vaccination [facility] Start: 03-30-2024 Influenza vaccination Flu vaccine (# 1) [facility] Start: 02-23-2024 End: 02-23-2024 Patient encounter procedure 02/23/2024 10:45 AM EDT Office Visit [address] [place] [address] Isabela Bazan MD [facility] [place] [address] [facility] Start: 12-16-2023 End: 12-16-2023 Patient encounter procedure 12/16/2023 3:30 PM EDT Office Visit [facility] [address] [place] [address] Isabela Bazan MD [facility] [place] [address] [facility] Start: 11-15-2023 End: 11-15-2023 Patient encounter procedure 11/15/2023 3:00 PM EDT Office Visit [facility] [address] [place] [address] Isabela Bazan MD [facility] [place] [address] [facility] Start: 11-10-2023 End: 11-10-2023 Telemedicine consultation with patient 11/10/2023 10:45 AM EDT Telemedicine [address] [place] [phone] Isabela Bazan MD [address] [place] [address] [facility] Start: 11-08-2023 End: 11-15-2023 Bacteria identified in Urine by Culture Urine Culture Microbiology Routine Dysuria Expected: 11/08/2023 (Approximate), Expires: 11/15/2023 [facility] Work Phone: Comment on above: Expected: 11/08/2023 (Approximate), Expires: 11/15/2023 Start: 11-01-2023 End: 11-01-2023 Patient encounter procedure 11/01/2023 10:00 AM EST Procedure Visit [facility] [address] [place] [address] [facility] Start: 10-07-2023 End: 10-07-2024 Prostate specific Ag [Mass/volume] in Serum or Plasma [facility] Work Phone: Comment on above: Expected: 10/07/2023 (Approximate), Expires: 10/07/2024 Start: 10-07-2023 End: 10-07-2024 XR Abdomen Single view [facility] Work Phone: Comment on above: Expected: 10/07/2023 (Approximate), Expires: 10/07/2024 Once for 1 Occurrenc es starting 10/07/2023 until 10/07/2023 Start: 06-10-2023 Diabetes screen Diabetes screen [facility] Work Phone: Start: 05-09-2023 Lipid screen Lipid screen [facility]- [place], [place] Start: 04-30-2023 COVID-19 Vaccine ( season) COVID-19 Vaccine ( season) [facility] Start: 04-30-2023 Influenza vaccination Influenza Vacc ine (#1) [facility] Start: 04-02-2023 Depression Screen Depression Screen [facility] Start: 07-08-2022 End: 07-08-2022 Patient encounter procedure 07/08/2022 Office Visit Pulmonology George Hernandez MD [address] [place] [address] [facility] [place] [facility] Start: 06-30-2022 End: 06-30-2022 Patient encounter procedure 06/30/2022 Office Visit Cardiology Justin Espinoaz MD [address] [facility] [address] [place] [address] [facility] Cardiology Start: 06-24-2022 Creatinine measurement [facility] [employer] Work Phone: Start: 06-24-2022 Potassium monitoring Potassium monit ori [employer] Work Phone: Start: 06-15-2022 Annual Wellness Visi t (AWV) Annual Wellness Visit (AWV) [facility] [employer] Start: 06-15-2022 End: 06-15-2022 Patient encounter procedure [facility] Start: 06-12-2022 Lipid panel [facility] [employer] Start: 06-12-2022 Prostate specific antigen measurement Prostate Specific Antigen (PSA) Screening or Monitoring [facility] [employer] Start: 06-11-2022 End: 06-11-2022 Patient encounter procedure 06/11/2022 Office Visit Cardiology Justin Espinoza MD [address] [facility] [address] [place] [address] [facility] Cardiology Start: 04-30-2022 Influenza vaccination B ON [employer] Start: 04-20-2022 End: 04-20-2022 Patient encounter procedure 04/20/2022 Appointment Pulmonary Function Testing [facility] Start: 03-30-2022 Influenza vaccination Flu vaccine (# 1) [facility] [employer] Start: 2021 Fall risk assessment Falls Risk Asse [facility] Start: 2021 Pneumococcal 65+ yea rs Vaccine (1 - PCV) Pneumococcal 65+ years Vaccine (1 - PCV) [facility] [employer] Start: 2021 Pneumococcal Vaccine : 65+ Years (1 - PCV) Pneumococcal Vaccine: 65+ Years (1 - PCV) [facility] Start: 2021 Pneumococcal Vaccine : 65+ Years (1 of 1 - PCV) Pneumococcal Vaccine: 65+ Years (1 of 1 - PCV) [facility] Start: 2021 Pneumococcal Vaccine : Age 65+ (1 - PCV) Pneumococcal Vaccine: Age 65+ (1 - PCV) [facility] Start: 10-16-2021 End: 10-16-2021 Patient encounter procedure 10/16/2021 Office Visit Cardiology Justin Espinoza MD [address] [facility] [address] [place] [address] [phone] [facility] Cardiology Start: 07-10-2021 End: 07-10-2021 Patient encounter procedure 07/10/2021 Appointment Radiology [facility] Ultrasound Start: 07-07-2021 End: 07-07-2021 Patient encounter procedure 07/07/2021 Office Visit Cardiology Justin Espinoza MD [address] [place] [address] [phone] [facility] Cardiology Start: 06-10-2021 Creatinine measurement Creatinine mo nitoring [facility] [employer] Phone: Start: 06-10-2021 Lipid panel Lipid screen [facility] [employer] Phone: Start: 06-10-2021 Potassium monitoring Potassium monit oring [facility] [employer] Phone: Start: 04-30-2021 Influenza vaccination [facility] [employer] Phone: Start: 03-06-2021 End: 03-06-2021 Patient encounter procedure 03/06/2021 Office Visit Cardiology Justin Espinoza MD [address] [place] [address] [phone] [facility] Cardiology Start: 02-27-2021 End: 02-27-2021 Patient encounter procedure [facility] Start: 05-15-2020 Creatinine measurement Creatinine mo nitoring [place], [place] Start: 05-15-2020 Creatinine monitoring Creatinine mon [facility] Work Phone: Start: 05-15-2020 Lipid panel Lipid screen [place], [place] Start: 05-15-2020 Lipid screen Lipid screen [facility] Work Phone: Start: 05-15-2020 Potassium monitoring Potassium monit [facility] Work Phone: Start: 04-30-2020 Influenza vaccination Flu vaccine (# 1) [place] Start: 06-07-2019 End: 06-07-2019 Office Visit 06/07/2019 Office Visit Cardiology Brain Freedman MD [address] [facility] [address] [place] [address] [phone] [facility] Cardiology Start: 05-15-2019 End: 05-15-2019 Office Visit 05/15/2019 Office Visit Family Medicine Jarad Rey MD [address] [place], [place] [phone] [facility] Primary Care Start: 05-09-2019 Creatinine monitoring Creatinine mon [place], [place] Start: 05-09-2019 Potassium monitoring Potassium monit [place], [place] Start: 04-30-2019 Influenza vaccination Flu vaccine (# 1) [place] Start: 04-30-2017 Influenza vaccination SEQUENTI AL INFLUENZA VACCINE (#1) [facility] Work Phone: Start: 2016 Hepatitis B Vaccines (1 of 3 - Risk 3-dose series) Hepatitis B Vaccines (1 of 3 - Risk 3-dose series) [facility] Start: 2016 Respiratory Syncytia l Virus (RSV) or age 60 yrs+ (1 - 1-dose 60+ series) Respiratory Syncytial Virus (RSV) or age 60 yrs+ (1 - 1-dose 60+ series) [facility] Start: 2016 Respiratory Syncytia l Virus (RSV) or age 60 yrs+ (1 - Risk 60-74 years 1-dose series) Respiratory Syncytial Virus (RSV) or age 60 yrs+ (1 - Risk 60-74 years 1-dose series) [facility] Start: 2016 RSV High Risk: (Elde rly (60+) or Population) (1 - Risk 60-74 years 1-dose series) RSV High Risk: (Elderly (60+) or Population) (1 - Risk 60-74 years 1-dose series) [facility] Start: 2016 RSV patient s and/or patients aged 60+ years (1 - 1-dose 60+ series) RSV patients and/or patients aged 60+ years (1 - 1-dose 60+ series) [facility] Start: 2016 Zoster vaccine hzv l sangita for subcutaneous use ZOSTER VACCINE [facility] Work Phone: Start: 2006 Administration of he rpes zoster vaccine Zoster Vaccines (1 of 2) [facility] Start: 2006 Colon cancer screen colonoscopy Colon cancer screen colonoscopy [place] Start: 2006 Pneumococcal vaccination Pneum ococcal Vaccine (1 of 1 - PCV) [facility] Start: 2006 Shingles Vaccine (1 of 2) Shingles Vaccine (1 of 2) [facility] Start: 2006 Zoster Vaccines (1 of 2) Zoste r Vaccines (1 of 2) [facility] Start: 2001 Screening for malign ant neoplasm of colon [facility] Start: 1978 DTaP/Tdap/Td Vaccine s (1 - Tdap) DTaP/Tdap/Td Vaccines (1 - Tdap) [facility] Start: 12-03-1975 DTaP/Tdap/Td vaccine (1 - Tdap) DTaP/Tdap/Td vaccine (1 - Tdap) [facility] Start: 12-03-1975 Hepatitis A Vaccines (1 of 2 - Risk 2-dose series) Hepatitis A Vaccines (1 of 2 - Risk 2-dose series) [facility] Start: 12-03-1975 Pneumococcal 50+ yea rs Vaccine (1 of 2 - PCV) Pneumococcal 50+ years Vaccine (1 of 2 - PCV) [facility] Start: 1974 Diabetes mellitus screening Diabetes Screening [facility] Start: 1974 Hepatitis C screening Hepatitis C [facility] Start: 12-03-1971 HIV screening HIV Screening [facility] Start: 1968 COVID-19 Vaccine (1) COVID-19 Vaccin e (1) [facility] Start: 1968 Depression screening using PHQ-9 (Patient Health Questionnaire 9) score Depression Screening (PHQ-2/9) [facility] Start: 12-03-1967 DTaP/Tdap/Td vaccine (1 - Tdap) DTaP/Tdap/Td vaccine (1 - Tdap) [facility] Phone: Start: 1962 Pneumococcal 65+ yea rs Vaccine (1 - PCV) Pneumococcal 65+ years Vaccine (1 - PCV) [facility] [employer] Start: 1962 Pneumococcal 65+ yea rs Vaccine (1 of 2 - PCV) Pneumococcal 65+ years Vaccine (1 of 2 - PCV) [facility] Start: 12-03-1959 History and physical examination, annual for health maintenance Wellness Visit [facility] Start: 1957 MMR Vaccines (1 of 1 - Standard series) MMR Vaccines (1 of 1 - Standard series) [facility] Start: 06-03-1957 COVID-19 Vaccine (#1) COVID-19 Vacci ne (#1) [facility] Start: 1956 Lipid panel Lipid Panel [facility] Start: 1956 Medicare Annual Well ness Visit Medicare Annual Wellness Visit (AWV) [facility] Start: 1956 Prostate specific antigen measurement PSA Level [facility] Start: 1956 Screening for malign ant neoplasm of colon [facility] Start: 1956 Yearly Adult Physical Yearly Adult P hysical [facility] Start: 1956 HEPATITIS C SCREENING [facility]PATITIS C [facility] Work Phone: Start: 04-05-1957 Screening colonoscopy [facility] Work Phone: Start: 1956 End: 1956 Tetanus vaccination [facility] End: 11-09-2023 Bacteria identified in Urine by Culture [facility] Work Phone: Comment on above: Once (Lab) for 1 Occ urrences starting 11/09/2023 until 11/09/2023 End: 03-25-2025 Bacteria identified in Urine by Culture [facility] Work Phone: Comment on above: Once (Lab) for 1 Occ urrences starting 03/25/2025 until 03/25/2025 End: 05-04-2025 Bacteria identified in Urine by Culture [facility] Work Phone: Comment on above: Once (Lab) for 1 Occ urrences starting 05/04/2025 until 05/04/2025 End: 11-09-2023 Extra Urine [facility] Extra Urine [facility] Lab Timed Once for 1 Occurrences starting 11/09/2023 until 11/09/2023 [facility] Work Phone: Comment on above: Once for 1 Occurrenc es starting 11/09/2023 until 11/09/2023 End: 03-25-2025 Extra Urine [employer] Extra Urine [facility] Lab Timed Once for 1 Occurrences starting 03/25/2025 until 03/25/2025 [facility] Work Phone: Comment on above: Once for 1 Occurrenc es starting 03/25/2025 until 03/25/2025 End: 05-04-2025 Extra Urine [facility] Extra Urine [facility] Lab Timed Once for 1 Occurrences starting 05/04/2025 until 05/04/2025 [facility] Work Phone: Comment on above: Once for 1 Occurrenc es starting 05/04/2025 until 05/04/2025 End: 06-26-2024 Hemoglobin A1c/Hemoglobin.total in Blood [facility] Comment on above: 1 Occurrences starti ng 06/26/2024 until 06/26/2024 End: 05-08-2019 Holter monitor 24 hour Holter monitor 24 hour Cardiac Services Routine PVC (premature ventricular contraction) 1 Occurrences starting 05/08/2019 until 05/08/2019 [facility] [place], [place] Comment on above: 1 Occurrences starti ng 05/08/2019 until 05/08/2019 Initiate Oxygen Ther apy Protocol Initiate Oxygen Therapy Protocol Respiratory Care Routine Daily until discontinued starting 09/14/2019 [employer] Work Phone: Comment on above: Daily until disconti nued starting 09/14/2019 Phase I & II - meter ed glucose Phase I & II - metered glucose Point of Care Testing Routine As Needed until discontinued starting 09/14/2019 [employer] Work Phone: Comment on above: As Needed until disc ontinued starting 09/14/2019 End: 11-09-2023 Urinalysis complete W Reflex Culture panel - Urine [facility] Work Phone: Comment on above: STAT (Lab) for 1 Occ urrences starting 11/09/2023 until 11/09/2023 End: 03-25-2025 Urinalysis complete W Reflex Culture panel - Urine [facility] Work Phone: Comment on above: Once (Lab) for 1 Occ urrences starting 03/25/2025 until 03/25/2025 End: 05-04-2025 Urinalysis complete W Reflex Culture panel - Urine [facility] Work Phone: Comment on above: STAT (Lab) for 1 Occ urrences starting 05/04/2025 until 05/04/2025 End: 09-13-2024 XR Abdomen Single view [facility] Work Phone: Comment on above: Once for 1 Occurrenc es starting 09/13/2024 until 09/13/2024 End: 02-17-2021 XR HAND RIGHT (MIN 3 VIEWS) XR HAND RIGHT (MIN 3 VIEWS) Imaging STAT Once for 1 Occurrences starting 02/17/2021 until 02/17/2021 [employer] Work Phone: Comment on above: Once for 1 Occurrenc es starting 02/17/2021 until 02/17/2021 XR HAND RIGHT (MIN 3 VIEWS) XR HAND RIGHT (MIN 3 VIEWS) Imaging STAT 02/17/2021 9:12 PM EDT [employer] Phone: Payers Date Payer Category Payer Self-pay 2021 Blue Cross Blue Shijemma ld Managed Care [facility] [id number] 2021 Medicare [id number]. 1.13.647.2. [id number] 2021 Medicare [id number] 1.2.840.267387.1.13.239.2. [id number] 2021 Unknown [id number] 1.2.840.338857.1.13.239.2. 7.3.338862.315 2017 Unknown [employer] - EXCHANGE xxxxxxxxxxxx 2017-Present [phone] [address] [place] [address] xxxxxxxxxxxx 1.2.840.535594.1.13.239.2. 7.3.582196.315 2017 Unknown 2015 Unknown [id number] 2.16.840.1.660666.3.249.13 1956 Unknown [id number] 2.16.840.1.154837.3.579.2. 903 1955 Unknown [id number] 2.16.840.1.708050.3.579.2. 182 1956 Unknown [id number] 2.16.840.1.242402.3.579.2. 1244 1956 Unknown [id number] 2.16.840.1.159966.3.579.2. 1244 1956 Unknown [id number] 2.16.840.1.613485.3.579.2. 1243 1956 Unknown [id number] 2.16.840.1.052509.3.579.2. 1243 1956 Unknown [id number] 2.16.840.1.391326.3.579.2. 1243 1956 Unknown [id number] 2..840.1.790987.3.579.2. 1243 1956 Unknown [id number] 2.840.1.533093.3.579.2. 1243 1956 Unknown [id number] 2.16.840.1.171082.3.579.2. 1243 1956 Unknown [id number] 2..840.1.906225.3.579.2. 1243 1956 Unknown [id number] 2..840.1.858636.3.579.2. 1243 1956 Unknown [id number] 2..840.1.263313.3.579.2. 1242 1956 Unknown [id number] 2.16.840.1.351361.3.579.2. 1242 1956 Unknown [id number] 2.16.840.1.541552.3.579.2. 185 1955 Unknown [id number] 2.16.840.1.423458.3.579.2. 185 Unknown [id number] 2.16.840.1.330650.3.579.2. 462 Unknown [id number] 2.16.840.1.694019.3.579.2. 462 Social History Date Type Detail Facility Start: 05-19-2017 End: 10-07-2023 Tobacco smoking status NHIS Never smoker [employer] Start: 1955 Sex Assigned At Not on file [facility] Work Phone: Start: 10-12-2018 End: 05-04-2025 Alcohol intake No [facility] Start: 06-10-2020 End: 10-07-2023 Tobacco use and exposure Never used [employer] Start: 06-10-2020 End: 06-15-2022 Alcohol intake Current non-drinker of alcohol (finding) [employer] Work Phone: Start: 09-27-2023 End: 09-13-2024 Exposure to SARS-CoV-2 (event) Not sure [employer] Start: 06-12-2021 End: 06-15-2022 History SDOH Financial 5 [employer] Work Phone: Start: 06-12-2021 End: 06-15-2022 History SDOH Food Worry 1 [employer] Work Phone: Tobacco smoking stat [facility] Tobacco smoking consumption unknown [facility] Start: 10-07-2023 End: 05-04-2025 Alcohol intake Lifetime non-drinker (finding) [facility] Work Phone: Start: 10-07-2023 End: 05-04-2025 History of Social function [employer] How often to you hav e a drink containing alcohol? Never [employer] Start: 07-24-2022 Average Number of Drinks Not on file [employer] (I/We) worried wheth er (my/our) food would run out before (I/we) got money to buy more. Never true [employer] At any time in the p ast 12 months, were you homeless or living in snf [including now]? No [employer] Start: 1955 Sex assigned at Male [facility] Start: 03-25-2025 Gender identity Identifies as male gender (finding) [facility] Work Phone: Start: 03-25-2025 Sexual orientation Heterosexual (finding) [facility] Work Phone: Start: 10-09-2012 Sex Male (finding) [facility] Goals Date Patient Goal Desired Activity /State Functional Status Date Assessment Result Facility 05-04-2025 Ethel - suicide s everity rating scale screener - recent [C-SSRS] [facility] Work Phone: 04-25-2025 Functional status Ambulates [facility] Work Phone: 03-25-2025 Ethel - suicide s everity rating scale screener - recent [C-SSRS] [facility] Work Phone: Mental Status Date Assessment Result Facility 04-25-2025 Cognitive function Level Of Consciousness Sedated [facility] Work Phone: 04-25-2025 Cognitive function Voice/Name [facility] Work Phone: Clinical Notes 06-03-2015 to 05-05-2025 [...] up to the time of signout at 4206. This is in addition to the primary record. Go over the results with the patient including CAT scan results. I will reach out to his urologist at [facility]. Patient has been accepted to [facility] by Dr. Lam. He will be given [...] Color, Urine Dark-Yellow Appearance, Urine Clear Specific [place], Urine 1.015 pH, Urine 6.5 Protein, Urine [...] Abnormality Status --------- ------ Urinalysis with Reflex C...[[id number]] Abnormal Final result Extra Urine [employer] T[employer][[id number]] Please view results for these tests on [...] Andrew Sosa 05/04/2025 11:53 PM Dictation workstation: [id number] Medical Decision Making Transfer to [facility] Final diagnoses: [N20.1] Ureteral calculus Procedure Procedures DO Kartik Mendez DO 05/05/25153 [facility] Work Phone: 05-05-2025 Emergency department Note Emergency Medicine Transition of Care Note. I received Ramon Costa in signout from Dr. Love. Please see the previous ED provider note for all HPI, PE and MDM up to the time of signout at 9905. This is in addition to the primary record. Go over the results with the patient including CAT scan results. I will reach out to his urologist at [facility]. Patient has been accepted to [facility] by Dr. Lam. He will be given [...] Color, Urine Dark-Yellow Appearance, Urine Clear Specific [place], Urine 1.015 pH, Urine 6.5 Protein, Urine [...] Abnormality Status --------- ------ Urinalysis with Reflex C...[[id number]] Abnormal Final result Extra Urine Johnson Tube[[id number]] Please view results for these tests on [...] Andrew Sosa 05/04/2025 11:53 PM Dictation workstation: [id number] Medical Decision Making Transfer to [facility] Final diagnoses: [N20.1] Ureteral calculus Procedure Procedures DO Kartik Mendez DO 05/05/25 0154 documented in this encounter [facility] Work Phone: 04-25-2025 Discharge summary Note Date/Time April 25, 2025 3:47pm [facility] Medical Records Department [address] [place] [address] Instructions for Home/Discharge Instructions 04/25/25 1547 MR#: [id number] Acct: [id number] Name: RAMON COSTA Rep #:[id number] : [...] Up With: Harjit Lam MD When: Call [phone] for an appointment Test Results: Test results from this visit will be discussed in further detail at your follow-up appointment, if applicable. Discharge Plan Admission Primary Reason for Your Visit: ESWL Attending Provider: Harjit Lam Primary Care Provider: Jarad Rey Instructions Print Language: Canadian Discharge Orders/Prescriptions Prescriptions: New ciprofloxacin HCl [Cipro] [...] MD cc: Jarad Rey MD ~* Signed [facility] Work Phone: 1(646) 798-515908-27-2025 Consult note [facility] Medical Records Department [address] [place] [address] Anesthesia Postop Eval I 04/25/25 1647 MR#: [id number] Acct: [id number] Name: RAMON COSTA Rep #:[id number] : 1955 69 From: Gonzalo Saucedo CRNA PCP: Jarad Rey MD Status:REG SDC Y Race: C Location: [place] [address] Anesthesia: Postop Eval I Current Vital Signs [...] Eval 1 completed: Yes 04/25/25 1648 y CERTIFIED MEDICAL CODING SPECIALIST> Date _ Gonzalo Saucedo CERTIFIED MEDICAL CODING SPECIALIST Cosigner Signature: Date CC: ~ Signed [facility]08-27-2025 Procedure note [facility] Medical Records Department [address] [place] [address] Operative Report 04/25/25 1620 MR#: [id number] Acct: [id number] Name: RAMON COSTA Rep #:[id number] : 1955 69 From: Harjit Lam MD PCP: Jarad Rey MD Status:[facility] Location: [place] [address] Operative Report (Standard) Operative Information Date of Procedure: 04/25/25 Pre-Operative Diagnosis: Right kidney stones Post-Operative Diagnosis: same Surgery/Procedure Performed: Cystoscopy right stent placement and right ESWL sealer aircraft: No Type of Anesthesia: General RN Documented [...] in usual sterile fashion. Using a 21 Faroese rigid cystourethroscope the entire length of the urethra was normal then went into the bladder. Identifiedthe trigone the left and right ureteral orifice. I then cannulated the right ureteral orifice and advanced a wire up into the kidney. I then backloaded a 5 Faroese open ended catheter over the wire and injected contrast todelineate the anatomy. After the retrograde was performed I then used fluoroscopic images and guidance to advanced a wire up into the kidney and over the 0.038 glidewire I advanced a 6 Faroese by 26 cm double pigtail stent. I [...] SCD's VTE Pharm Prophylaxis ordered?: No 04/25/25 8680 Cosigner Signature (if applicable): CC: Dr. Harjit Lam MD; Jarad Rey MD~ Signed [facility]08-27-2025 Discharge summary [facility] Medical Records Department [address] [place] [address] Instructions for Home/Discharge Instructions 04/25/25 1547 MR#: [id number] Acct: [id number] Name: RAMON COSTA Rep #:[id number] : [...] Up With: Harjit Lam MD When: Call [phone] for an appointment Test Results: Test results from this visit will be discussed in further detail at your follow- up appointment, if applicable. Discharge Plan Admission Primary Reason for Your Visit: ESWL Attending Provider: Harjit Lam Primary Care Provider: Jarad Rey Instructions Print Language: Canadian Discharge Orders/Prescriptions Prescriptions: New ciprofloxacin HCl [Cipro] [...] with an KUB prior to appt. with id. 04/25/25 1547Harjit Lam MD cc: Jarad Rey MD ~* Signed [facility]08-27-2025 Consult note Author Delonte Israel [facility] Note Date/Time April 25, 2025 12 :41pm [facility] Medical Records Department [address] [place] [address] Pre-Anesthesia Evaluation 04/25/25 1240 MR#: [id number] Acct: [id number] Name: RAMON COSTA Rep #:[id number] : 1955 69 From: Delonte Israel MD PCP: Jarad Rey MD Status:REG SDC Y Race: C Location: [place] [address] ASA Classification* ASA Classification ASA Classification: 3 [...] INSERTION STENT Anesthesia History Anesthesia History - attacher: Anesthesia History - attacher Hx Hospitalization No 04/13/25 13:21 Any Problems [...] take am of surgery PONV PONV - attacher: PONV - attacher Female No 04/13/25 13:21 HX of Motion [...] 04/25/25 12:03 Respiratory Assessment Respiratory Assessment - attacher: Respiratory Tract Infection Hx - attacher Hx Respiratory Tract Infection No 04/13/25 13:21 STOP Sleep Apnea STOP Sleep Apnea - attacher: STOP Sleep Apnea - attacher Hx Hypertension Yes: CONTROLLED WITH MED 04/13/25 [...] Tobacco Use History Tobacco Use History - attacher: Tobacco Use History - attacher Tobacco Use Smoking Status Never smoker 04/13/25 13:21 Hx Tobacco Use No 04/13/25 13:21 Years Smoking Packs Smoked per Day Smoking Cessation Date was within the last 15 years Hx Smoking Cessation Date Hx Smoking Cessation Counseling Hematologic Medial History Hematologic Hx - attacher: Hematologic Medical Hx - sagger maker Hx of Blood Transfusion No 04/13/25 13:21 [...] confused, unrespo /Reproduction History /Reproductive History - attacher: /Reproductive Hx- attacher Hx Now No 04/13/25 13:21 Gestational Age [...] MD Cosign Signature: Date CC: ~ Signed [facility] Work Phone: 1(727) 816-528508-27-2025 Consult note [facility] Medical Records Department [address] [place] [address] Pre-Anesthesia Evaluation 04/25/25 1240 MR#: [id number] Acct: [id number] Name: RAMON COSTA Rep #:[id number] : 1955 69 From: Delonte Israel MD PCP: Jarad Rey MD Status:REG [facility] [place] Race: C Location: [place] [address]- ASA Classification* ASA Classification ASA Classification: 3 [...] INSERTION STENT Anesthesia History Anesthesia History - attacher: Anesthesia History - attacher Hx Hospitalization No 04/13/25 13:21 Any Problems [...] take am of surgery PONV PONV - attacher: PONV - attacher Female No 04/13/25 13:21 HX of Motion [...] 04/25/25 12:03 Respiratory Assessment Respiratory Assessment - attacher: Respiratory Tract Infection Hx - attacher Hx Respiratory Tract Infection No 04/13/25 13:21 STOP Sleep Apnea STOP Sleep Apnea - attacher: STOP Sleep Apnea - attacher Hx Hypertension Yes: CONTROLLED WITH MED 04/13/25 [...] Tobacco Use History Tobacco Use History - attacher: Tobacco Use History - attacher Tobacco Use Smoking Status Never smoker 04/13/25 13:21 Hx Tobacco Use No 04/13/25 13:21 Years Smoking Packs Smoked per Day Smoking Cessation Date was within the last 15 years Hx Smoking Cessation Date Hx Smoking Cessation Counseling Hematologic Medial History Hematologic Hx - attacher: Hematologic Medical Hx - sagger maker Hx of Blood Transfusion No 04/13/25 13:21 [...] confused, unrespo /Reproduction History /Reproductive History - attacher: /Reproductive Hx- attacher Hx Now No 04/13/25 13:21 Gestational Age [...] 12:12 IV 15 mls/hr .Q48H RAYA Administration [facility] Medical History (Updated 04/13/25 @ 13:33 by [...] Delonte Copeigndamaso Signature: Date CC: ~ Signed [facility]08-14-2025 Radiology Diagnostic study note [facility] Imaging Services [address] [place] [address] Abdomen Single View MR#: [id number] Acct: [id number] Name: RAMON COSTA Rep #: [id number] : 1955 M 69 From: La Guerrero MD PCP: Jarad Rey MD Status: REG CLI Study:Abdomen Single View Date of Exam: 04/10/25 Exam# [id number] Ordering Dr: Melba Barr PROCEDURE: ABDOMEN SINGLE [...] Bony structures show degenerative change Reading Location: [place] CC: Jarad Rey MD; Melba Barr ~ Report Checker: Signed [facility]07-27-2025 Physician Emergency department Note* Zak Alvarez MD [...] Light-Brown (*) Appearance, Urine Turbid (*) Specific [place], Urine 1.012 pH, Urine 6.5 Protein, Urine [...] Abnormality Status --------- ------ Urinalysis with Reflex C...[[id number]] Abnormal Final result Extra Urine Johnson Tube[[id number]] Please view results for these tests on [...] Maykel Ruano 03/25/2025 10:47 PM Dictation workstation: [id number] Procedures Medical Decision Making 69-year-old male history [...] Hemorrhagic cystitis Zak Alvarez MD 03/25/25 2334 [facility] Work Phone: 1(938) 423-873707-27-2025 Emergency department Note* Zak Alvarez MD - [...] Light-Brown (*) Appearance, Urine Turbid (*) Specific [place], Urine 1.012 pH, Urine 6.5 Protein, Urine [...] Abnormality Status --------- ------ Urinalysis with Reflex C...[[id number]] Abnormal Final result Extra Urine Johnson Tube[[id number]] Please view results for these tests on [...] Maykel Ruano 03/25/2025 10:47 PM Dictation workstation: [id number] Procedures Medical Decision Making 69-year-old male history [...] Alvarez MD 03/25/25 2334 documented in this [facility] Work Phone: 1(596) 720-535301-15-2025 History of Present illness Narrative* Isabela Bazan [...] and BMP and PSA documented in this [facility] Work Phone: 1(945) 305-399306-26-2024 History of Present illness Narrative* Isabela Bazan [...] 6 months [facility]UB [facility]: 1(433) 248-563604-18-2024 History of Present illness Narrative* Isabela Bazan [...] 2 months with KUB documented in this [facility] Work Phone: 1(965) 739-607003-18-2024 History of Present illness Narrative* Isabela Bazan [...] to keep PVR log documented in this [facility] Work Phone: 1(675) 352-425903-13-2024 History of Present illness Narrative* Isabela Bazan [...] and chills also last week. Was in [facility]'s ER last night and had a yan [...] intake. F/U 1 week documented in this [facility] Work Phone: 1([phone]) 250-972003-12-2024 Emergency department Note* Karen Fischer PA-C - [...] Urine Yellow Appearance, Urine Hazy (*) Specific [place], Urine 1.015 pH, Urine 6.0 Protein, Urine [...] Abnormality Status --------- ------ Urinalysis with Reflex C...[[id number]] Abnormal Final result Extra Urine Johnson Tube[[id number]] Please view results for these tests on [...] times daily. First dose given in the [facility] room along with Pyridium. Patient is also [...] Karen Fischer PA-C 11/09/232024 documented in this [facility] Work Phone: [phone]) 190-836803-12-2024 Physician Emergency department Note* Karen Fischer PA-C - [...] Urine Yellow Appearance, Urine Hazy (*) Specific [place], Urine 1.015 pH, Urine 6.0 Protein, Urine [...] Abnormality Status --------- ------ Urinalysis with Reflex C...[[id number]] Abnormal Final result Extra Urine Johnson Tube[[id number]] Please view results for these tests on [...] times daily. First dose given in the [facility] room along with Pyridium. Patient is also [...] hematuria, site unspecified Karen Fischer PA-C 11/09/232024 [facility] Work Phone: 1(403) 651-476703-12-2024 Reason for referral (narrative)* Consultation (Routine) - Authorized Specialty Diagnoses / Procedures Referred By Roxanne pearson Referred To Contact Urology Karen Fischer PA-C [address] [place] [address] Referral ID Status Reason Start Date Expiration Date Visits Requested Visits Authorized [id number] Authorized Specialty Services Required 11/09/2023 11/08/2024 1 1 [facility] Work Phone: 1(588) 933-584903-11-2024 History of Present illness Narrative* Isabela Bazan [...] for PVR check Virtual [facility]: 1([phone]) 884-671003-04-2024 History of Present illness Narrative* Yaneth Funez [...] 6 MONTHS WITH KUB [facility]: 1(327) 762-616502-08-2024 History of Present illness Narrative* Isabela Bazan [...] and KUB and Cysto documented in this [facility] Work Phone: 1(903) 474-497911-10-2021 History of Present illness Narrative* Initial Fall [...] patient is not using an assistive device. [facility] Work Phone: 1(991) 587-599107-01-2021 History of Present illness Narrative* Diamond Shah RN - 02/27/2021 9:59 AM EDT Reviewed history, allergies, and medications. Patient held his home medications prior to testing. Consent confirmed. Lexiscan exam explained. Placed patient on monitor. @ 1003 submarine cable equipment technician here to inject Lexiscan. SOB noted during recovery phase. Denied chest pain.Few pvc's noted. Patient off monitor and instructed to eat, will have last part of exam in 1 hour. [facility]: 1([phone]) [phone] Hospital Discharge instructions* Instructions* Oscar Dickens MD - 02/17/2021 ICE AFFECTED AREA. WRAP FOR SUPPORT. RETURN FOR NEW OR WORSENING SYMPTOMS. * Attachments The following attachments cannot be sent through Care Everywhere. * Hand Pain (Canadian) [facility] this [facility] Phone: [phone]) 100-323710-12-2015 Telephone encounter Note* Telephone Encounter - Anita Hernandez LPN - 06/10/2015 8:[address] Barreto pt [id number] Miscellaneous Notes* Telephone Encounter - Anita Hernandez LPN - 06/10/2015 8:[address] Barreto pt documented in this [id number] Telephone encounter Note* Telephone Encounter - Nina Cameron LPN - 06/04/2015 3:42 PM EDT Med list updated [id number] Miscellaneous Notes* Telephone Encounter - Nina Cameron LPN - 06/04/2015 3:42 PM EDT Med list updated * Telephone Encounter - Briana Gan CNP - 06/03/2015 3:43 PM EDT No med list available documented in this [id number] Telephone encounter Note* Telephone Encounter - Briana Gan CNP - 06/03/2015 3:43 PM EDT No med list available [facility] Work Phone: Consult note Author Gonzalo Saucedo [facility] Note Date/Time April 25, 2025 4: 48pm [facility] Medical Records Department [address] [place] [address] Anesthesia Postop Eval I 04/25/25 1647 MR#: [id number] Acct: [id number] Name: RAMON COSTA Rep #:[id number] : 1955 69 From: Gonzalo Saucedo CRNA PCP: Jarad Rey MD Status:REG SDC Y Race: C Location: [place] [address] Anesthesia: Postop Eval I Current Vital Signs [...] document: Postop Eval 1 completed: Yes 04/25/25 6188 <Electronically signed by Gonzalo mccain CRNA> Date _ Gonzalo Saucedo CRNA Cosigner Signature: Date CC: ~ Signed [facility] Work Phone: Evaluation note* Diagnosis Right hand pain- Primary Pain in limb documented in this encounter [employer] Phone: evaluation note* Diagnosis THURMAN (dyspnea on exertion) Other dyspnea and respiratory abnormality documented in this encounter [employer] Phone: evaluation note* Diagnosis Annual physical exam Routine general medical examination at a [facility] care facility Prostate cancer screening Special screening for malignant neoplasm of prostate documented in this encounter [employer] Phone: evaluation note* Diagnosis Multiple thyroid nodules Nontoxic multinodular goiter documented in this encounter [employer] Phone: evaluation note* Diagnosis SOB (shortness of breath) Shortness of breath documented in this encounter [employer] Phone: evaluation note* Diagnosis SOB (shortness of breath) Shortness of breath documented in this encounter [employer] Phone: evaluation note* Diagnosis Benign prostatic hyperplasia with lower urinary tract symptoms, symptom details unspecified Nocturia History of kidney stones documented in this encounter [facility] Work Phone: Evaluation note* Diagnosis History of kidney stones documented in this encounter [facility] Work Phone: Evaluation note* Diagnosis Hematuria, unspecified type- Primary documented in this encounter [facility] Work Phone: Evaluation note* Diagnosis Nocturia Benign prostatic hyperplasia with lower urinary tract symptoms, symptom details unspecified History of kidney stones Dysuria documented in this encounter [facility] Work Phone: [phone] note* Diagnosis Urinary retention- Primary Unspecified retention of urine Urinary tract infection with hematuria, site unspecified Nocturia Dysuria Benign prostatic hyperplasia with lower urinary tract symptoms, symptom details unspecified documented in this encounter [facility] Work Phone: [phone] note* Diagnosis Nocturia Dysuria Benign prostatic hyperplasia with lower urinary tract symptoms, symptom details unspecified documented in this encounter [facility] Work Phone: [phone] note* Diagnosis Benign prostatic hyperplasia with lower urinary tract symptoms, symptom details unspecified Dysuria History of kidney stones Nocturia Retention of urine Unspecified retention of urine documented in this encounter [facility] Work Phone: [phone] note* Diagnosis History of kidney stones Nocturia Benign prostatic hyperplasia with lower urinary tract symptoms, symptom details unspecified documented in this encounter [facility] Work Phone: [phone] note* Diagnosis Encounter for annual wellness exam in Medicare patient- Primary Encounter for immunization Need for other specified prophylactic vaccination against single bacterial disease Medicare annual wellness visit, subsequent Routine general medical examination at a health care facility Chronic obstructive pulmonary disease, unspecified COPD type (HCC) Malignant melanoma, unspecified site (HCC) Encounter for annual wellness exam in Medicare patient [facility] Diagnosis History of kidney stones documented in this encounter [facility] Work Phone: [phone] note* Diagnosis Benign prostatic hyperplasia with lower urinary tract symptoms, symptom details unspecified- Primary History of kidney stones Nocturia History of kidney stones documented in this encounter [facility] Work Phone: [phone] note* Diagnosis History of kidney stones Benign prostatic hyperplasia with lower urinary tract symptoms, symptom details unspecified Nocturia documented in this encounter [facility] Work Phone: [phone] note* Diagnosis Hemorrhagic cystitis- Primary Unspecified cystitis documented in this encounter [facility] Work Phone: Evaluation note* Diagnosis Encounter for annual wellness exam in Medicare patient- Primary Encounter for immunization Need for other specified prophylactic vaccination against single bacterial disease Medicare annual wellness visit, subsequent Routine general medical examination at a health care facility Chronic obstructive pulmonary disease, unspecified COPD type (HCC) Malignant melanoma, unspecified site (HCC) Gallbladder polyp Cholesterolosis of gallbladder documented in this encounter [facility] assessment information available [facility] Work Phone: Evaluation note* Diagnosis Ureteral calculus- Primary Calculus of ureter documented in this encounter [facility] Work Phone: Hospital Discharge instructions* Instructions* Briana Salcido RN - 09/14/2019 Recommendations: - Repeat colonoscopy in 10 years. - Recommend High-fiber diet, keep stools soft and regular, avoid constipation and straining, use Anusol/preparation H ointment/cream for hemorrhoids if/when symptomatic. - Follow up with primary care physician as previously scheduled * Attachments The following attachments cannot be sent through Care Everywhere. * Colonoscopy: [facility]-op ([place]) [facility] Discharge [facility]* Attachments The following attachments cannot be sent through Care Everywhere. * Urinary Tract Infection, Adult ED ([place]) * Yan Catheter ([place]) [facility]charge [facility]* Attachments The following attachments cannot be sent through Care Everywhere. * Acute Cystitis Discharge Instructions ([place]) [facility]: Reason for referral (narrative)No reason for referral information availableWLutheran [facility] Work Phone: Reason for visit Narrative* Imaging (Routine) - Authorized Specialty Diagnoses / Procedures Referred By Roxanne t Referred To Contact Radiology Diagnoses History of kidney stones Procedures XR abdomen 1 view Isabela Bazan MD [address] [place] [address] Phone: tel: fax: Referral ID Status Reason Start Date Expiration Date Visits Requested Visits Authorized [id number] Authorized Perform Procedure 4 07/25/2025 1 1 [facility] Work Phone: Reason for visit Narrative* Imaging (Routine) - Pending Review Specialty Diagnoses / Procedures Referred By Roxanne pearson Referred To Contact Radiology Diagnoses Gallbladder polyp Procedures US GALLBLADDER Kaylynn Walter MD [address] [address] Phone: tel: fax: Referral ID Status Reason Start Date Expiration Date V isits Requested Visits Authorized [id number] Pending Review 04/26/2025 04/26/2026 1 1 [facility] Diagnosis Bradycardia Other specified cardiac dysrhythmias 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 Dyslipidemia Other and [...] Documents on File Type Date Recorded Patient Holistic Specialist Expl anation Advance Directives and Living Will Power of Laborer [employer] Latest Code Status on File Code Status Date Activated Date Inactivated Comments Full Code 03/28/2018 5:49 PM 03/28/2018 8:48 PM Full Code 03/28/2018 11:18 AM 03/28/2018 1:58 PM Documents on File Type Date Recorded Patient Holistic Specialist Expl anation ACP-Advance Directive ACP-Power of Laborer [employer] Latest Code Status on File Code Status Date Activated Date Inactivated Comments Full Code 03/28/2018 5:49 PM 03/28/2018 8:48 PM Full Code 03/28/2018 11:18 AM 03/28/2018 1:58 PM Documents on File Type Date Recorded Patient Holistic Specialist Expl anation Advance Directives and Living Will Power of Laborer [employer] Documents on File Type Date Recorded Patient Holistic Specialist Expl anation ACP-Advance Directive ACP-Power of Laborer [employer] Healthcare Agents on File Name Relationship Healthcare Agent Relationshi p Communication Jeanne Costa Spouse Primary Decision Maker Healthcare Agents on File Name Relationship Healthcare Agent Relationshi p Communication Jeanne Costa Spouse Primary Decision Maker Healthcare Agents on File Name Relationship Healthcare Agent Relationshi p Communication Jeanne Costa Spouse Primary Decision Maker [email or web address] Date Activated Date Inactivated Comments 08/17/2023 10:27 AM 08/17/2023 2:59 PM Date Activated Date Inactivated Comments 03/28/2018 5:49 PM 03/28/2018 8:48 PM Date Activated Date Inactivated Comments 03/28/2018 11:18 AM 03/28/2018 1:58 PM Healthcare Agents on File Name Relationship Healthcare Agent Relationshi p Communication Jeanne Costa Spouse Primary Decision Maker [email or web address] Date Activated Date Inactivated Comments 08/17/2023 10:27 AM 08/17/2023 2:59 PM Date Activated Date Inactivated Comments 03/28/2018 5:49 PM 03/28/2018 8:48 PM Date Activated Date Inactivated Comments 03/28/2018 11:18 AM 03/28/2018 1:58 PM Healthcare Agents on File Name Relationship Healthcare Agent Relationshi p Communication Jeanne Costa Spouse Primary Decision Maker [email or web address] Advance Directive Response Recorded Date/ Time Do you have a Healthcare Power of Laborer [employer]? Yes April 13, 2025 1:21pm Reason for Referral Status Reason Specialty Diagnoses / Procedures Referred By Contact Referred To Contact Pending Review Cardiology Diagnoses PVC (premature ventricular contraction) Procedures Holter monitor 24 hour Christofferson, Brain D, MD [address] [facility] [address] [place] [address] Status Reason Specialty Diagnoses / Procedures Referre d By Contact Referred To Contact Closed Cardiology Diagnoses THURMAN (dyspnea on exertion) Procedures ECHO Complete 2D [place] [address] [place] [address] [address] [place] [address] Status Reason Specialty Diagnoses / Procedures Referre d By Contact Referred To Contact Closed Radiology Diagnoses THURMAN (dyspnea on exertion) Procedures NM MYOCARDIAL SPECT REST [place]ERC[place] [address] [place] [address] [address] [place] [address] Specialty Diagnoses / Procedures Referred By Contac t Referred To Contact Radiology Diagnoses History of kidney stones Procedures XR abdomen 1 [place] [address] [place] [address] Referral ID Status Reason Start Date Expiration Date Visits Requested Visits Authorized [id number] Authorized Perform Procedure 10/07/2023 10/06/2024 1 1 Specialty Diagnoses / Procedures Referred By Contac t Referred To Contact Radiology Diagnoses History of kidney stones Procedures XR abdomen 1 [place] [address] [place] [address] [facility] [facility] [address] [facility] [address] [place] [address] Specialty Diagnoses / Procedures Referred By Contac t Referred To Contact Diagnoses History of kidney stones Isabela Bazan MD [address] [place] [address] Referral ID Status Reason Start Date Expiration Date V isits Requested Visits Authorized [id number] Pending Review 1 1 Referral ID Status Reason Start Date Expiration Date Visits Requested Visits Authorized [id number] Authorized Perform Procedure 02/23/2024 02/22/2025 1 1 Referral ID Status Reason Start Date Expiration Date Visits Requested Visits Authorized [id number] Authorized Perform Procedure 02/23/2024 02/22/2025 1 1 [...] section and content) DATE CREATED AUTHOR 02/22/2018 [facility] DATE CREATED AUTHOR AUTHOR'S ORGANIZ ATION 04/11/2018 [facility] DATE CREATED AUTHOR AUTHOR'S ORGANIZ ATION 05/07/2018 [facility] DATE CREATED AUTHOR AUTHOR'S ORGANIZ ATION 06/09/2018 [facility] DATE CREATED AUTHOR AUTHOR'S ORGANIZ ATION 06/14/2018 [facility] DATE CREATED AUTHOR AUTHOR'S ORGANIZ ATION 06/14/2018 [facility] DATE CREATED AUTHOR AUTHOR'S ORGANIZ ATION 06/21/2018 [facility] DATE CREATED AUTHOR AUTHOR'S ORGANIZ ATION 01/05/2023 [facility] DATE CREATED AUTHOR AUTHOR'S ORGANIZ ATION 08/20/2023 [facility] DATE CREATED AUTHOR AUTHOR'S ORGANIZ ATION 09/19/2023 [facility] DATE CREATED AUTHOR AUTHOR'S ORGANIZ ATION 11/13/2023 [facility] DATE CREATED AUTHOR AUTHOR'S ORGANIZ ATION 09/16/2024 [facility] DATE CREATED AUTHOR AUTHOR'S ORGANIZ ATION 03/28/2025 [facility] DATE CREATED AUTHOR AUTHOR'S ORGANIZ ATION 04/13/2025 [facility] DATE CREATED AUTHOR AUTHOR'S ORGANIZ ATION 05/02/2025 [facility] Reason for Visit (unrecogniz ed section and content) Status Reason Specialty Diagnoses / Procedures Referred By Contact Referred To Contact Pending Review Cardiology Diagnoses PVC (premature ventricular contraction) Procedures Holter monitor 24 hour Brain Freedman MD [address] [facility] [address] [place] [address] Status Reason Specialty Diagnoses / Procedures Referre d By Contact Referred To Contact Open EKG Diagnoses Ventricular premature depolarization Procedures HOLTER MONITOR Brain Freedman MD [address] [facility] [address] [place] [phone] [facility] [address] [place] [address] Reason Comments Hand Injury right hand pain and swelling x1hr s/p fall while playing basketball. motor and sensation intact, some numbness. On plavix. Status Reason Specialty Diagnoses / Procedures Referre d By Contact Referred To Contact Closed Radiology Diagnoses THURMAN (dyspnea on exertion) Procedures NM MYOCARDIAL SPECT REST EXERCISE OR RX Justin Espinoza MD [address] [address] Status Reason Specialty Diagnoses / Procedures Referre d By Contact Referred To Contact Closed Cardiology Diagnoses THURMAN (dyspnea on exertion) Procedures ECHO Complete 2D W Doppler W Color Justin Espinoza MD [address] [address] Status Reason Specialty Diagnoses / Procedures Referre d By Contact Referred To Contact Diagnoses Personal history of colonic polyps HISTORY OF COLON POLYPS Procedures FL COLONOSCOPY FLX DX W/COLLJ SPEC WHEN PFRMD COLONOSCOPY Familia Oliva MD [address] [place] [address] [facility] Reason Comments Medication Refill Reason Comments Establish Care Specialty Diagnoses / Procedures Referred By Contac t Referred To Contact Radiology Diagnoses History of kidney stones Procedures XR abdomen 1 view Isabela Bazan MD [address] [place] [address] [id number] [address] [facility] [address] [place] [address] Referral ID Status Reason Start Date Expiration Date Visits Requested Visits Authorized [id number] Authorized Perform Procedure 10/07/2023 10/06/2024 1 1 [...] abdomen 1 view Isabela Bazan MD [address] [place] [address] Referral ID Status Reason Start Date Expiration Date Visits Requested Visits Authorized [id number] Authorized Perform Procedure 02/23/2024 02/22/2025 1 1 [...] Care Teams (unrecognized sec tion and content) 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 Relationship Specialty Start Date End Date Jarad Rey MD [address] [place] [address] PCP - General Family Medicine 01/13/18 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 Relationship Specialty Start Date End Date Jarad Rey MD [address] [place] [address] PCP - General Family Medicine 01/13/18 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 Relationship Specialty Start Date End Date Jarad Rey MD [address] [place] [address] PCP - General Family Medicine 01/13/18 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 Relationship Specialty Start Date End Date Aramis Beaulieu MD [address] [place] [id number] PCP - General 12/12/12 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 Relationship Specialty Start Date End Date Aramis Beaulieu MD [address] [place] [address] PCP - General 12/12/12 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 Relationship Specialty Start Date End Date Jarad Rey MD [address] [place] [address] PCP - General 08/30/17 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 Relationship Specialty Start Date End Date Jarad Rey MD [address] [place] [address] PCP - General 08/30/17 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 Relationship Specialty Start Date End Date Jarad Rey MD [address] [place] [address] PCP - General 08/30/17 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 Relationship Specialty Start Date End Date Jarad Rey MD [address] [place] [address] PCP - General 08/30/17 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 Relationship Specialty Start Date End Date Jarad Rey MD [address] [place] [address] PCP - General 08/30/17 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 Relationship Specialty Start Date End Date Jarad Rey MD [address] [place] [address] PCP - General 08/30/17 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 Relationship Specialty Start Date End Date Jarad Rey MD [address] [place] [address] PCP - General 08/30/17 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 Relationship Specialty Start Date End Date Jarad Rey MD [address] [place] [address] PCP - General 08/30/17 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 Relationship Specialty Start Date End Date Jarad Rey MD [address] [place] [address] PCP - General Family Medicine 01/13/18 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 Relationship Specialty Start Date End Date Jarad Rey MD [address] [place] [address] PCP - General 08/30/17 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 Relationship Specialty Start Date End Date Jarad Rey MD [address] [place] [address] PCP - General 08/30/17 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 Relationship Specialty Start Date End Date Jarad Rey MD [address] [place] [address] PCP - General 08/30/17 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 Relationship Specialty Start Date End Date Jarad Rey MD [address] [place] [address] PCP - General 08/30/17 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 Relationship Specialty Start Date End Date Jarad Rey MD [address] [place] [address] PCP - General Family Medicine 01/13/18 Team [...] April 25, 2025 End: April 25, 2025 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 Relationship Specialty Start Date End Date Jarad Rey MD [address] [place] [address] PCP - General 08/30/17 Scheduled Active and [...] BE BASED ON THE PRIMARY CLINICAL RECORDS. [email or web address] provides no warranty or guarantee of the accuracy or completeness of information in this document.
--- NOTE | 2025-05-05 05:23 | EKG12_ITS ---
Test Reason : PREOP Blood Pressure : */* mmHG Vent. Rate : 69 BPM Atrial Rate : 69 BPM P-R Int : 158 ms QRS Dur : 82 ms QT Int : 404 ms P-R-T Axes : 44 -6 29 degrees QTcB Int : 432 ms Sinus rhythm with occasional Premature ventricular complexes Otherwise normal ECG No previous ECGs available Confirmed by Adrian Russ ([id number]), scientific editor ROXY OBRIEN ([id number]) on 05/08/2025 10:17:08 AM Referred By: [email or web address] Confirmed By: Adrian Russ
[2025-05-05] MEDS: 0.9% Saline Lock 10 ML Syringe IV (05:40)
[2025-05-05 06:09] LABS: Hematocrit 43.0 % (40-54); Hemoglobin 14.9 g/dL (13.0-16.5); Immature Granulocytes Count 0.070 X10^3/uL (0.0-0.0); Mean Corp Hgb Conc 34.7 g/dL (32-36); Mean Corpuscular Volume 92.5 fL (80-94); Mean Platelet Vol. 8.4 fl (6.2-12.0); NRBC Flagged by Analyzer 0 % (0-5); Platelet Count 191 K/mm3 (150-450); RBC Distribution Width CV 13.3 % (11.6-14.6); RBC Distribution Width SD 45.0 fl (35.1-43.9); Red Blood Count 4.65 M/mm3 (4.6-6.2); White Blood Count 12.0 K/mm3 (4.4-11.0)
[2025-05-05 07:03] LABS: Anion Gap 12 (5-15); BUN 12 mg/dL (4-19); BUN/Creat Ratio 7.8 RATIO (10-20); Calcium,Total 8.8 mg/dL (7.6-11.0); Carbon Dioxide 20.0 mmol/L (21.0-32.0); Chloride 106 mmol/L (98-108); Estimated Creatinine Clearance 57.01 ml/min (50-250); Glucose 116 mg/dL (70-99); Potassium 3.6 mmol/L (3.3-5.1)
--- NOTE | 2025-05-05 07:24 | PRE.ANES_ITS ---
ASA Classification* ASA Classification ASA Classification: 3 and E Assessment & Plan Anesthesia* Anesthesia Assessment Anesthesia Assessment: Discussed sedation and/or anesthesia options, risks, benefits, and alternatives with patient/parents/legal guardian/POA. Questions invited. The patient/parents/legal guardian/POA seems to understand and agrees to proceed with anesthesia plan. Reviewed the physical assessment, medical history, allergy history and patient home medications list prior to surgery/procedure/anesthetic and documented any changes. Performed airway and anesthesia risk assessments. Anesthesia Type Anesthesia Type: General Anesthesia Focused Assessment* Temperature: 98.0 F Pulse Rate: 82 Blood Pressure: 160/83 Respiratory Rate: 16 Pulse Ox: 99 Airway Assessment Mouth opens: >3 cm Mallampati Score: II Labs Anesthesia Preop lab: CBC WBC 12.0 K/mm3 (4.4-11.0) H 05/05/25 05:52 5 RBC 4.65 M/mm3 (4.6-6.2) 05/05/25 05:52 05/05/25 Hgb 14.9 g/dL (13.0-16.5) 05/05/25 05:52 05/05/25 Hct 43.0 % (40-54) 05/05/25 05:52 05/05/25 Plt Count 191 K/mm3 (150-450) 05/05/25 05:52 05/05/25 CHEMISTRY Potassium 3.6 mmol/L (3.3-5.1) 05/05/25 05:52 05/05/25 Sodium 138 mmol/L (133-145) 05/05/25 05:52 05/05/25 BUN 12 mg/dL (4-19) 05/05/25 05:52 05/05/25 Creatinine 1.52 mg/dL (0.70-1.20) H 05/05/25 05:52 Glucose 116 mg/dL (70-99) H 05/05/25 05:52 05/05/25 COAG Pre-Assessment Diagnosis/Proposed Procedure Planned Operative Procedure(s): cysto Laser Stent Anesthesia History Anesthesia History - director of physical therapy: Anesthesia History - director of physical therapy Hx Hospitalization No 04/13/25 13:21 Any Problems With Anesthesia No 05/05/25 04:37 Cholinesterase deficiency No 05/05/25 04:37 You/Your Family Experience No 05/05/25 04:37 fever (hyperthermia) with Relationship Recent Exposure to Contagious No 05/05/25 04:37 Disease Does patient have nerve No 05/05/25 04:37 stimulator Patient instructed to have No 05/05/25 04:37 device shut off --Does patient have Pacemaker or ICD? When Was Last Pacemaker Check QUESTION #4 FULL TEXT: You/Your Family Experience fever (hyperthermia) with Anesthesia Last Oral Intake Last Oral intake: Last Oral Intake NPO since Meds taken in AM with sips of water? Meds patient instructed to take am of surgery PONV PONV - director of physical therapy: PONV - director of physical therapy Female HX of Motion Sickness HX of N/V After Surgery Non-Smoker Duration of Surgery greater than 60 minutes Number of Risk Factors PONV Score Height & Weight Height & Weight: Anesthesia: Height & Weight Height 5 ft 9 in 05/05/25 04:28 Weight: 110.6 kg 05/05/25 04:28 Body Mass Index (BMI) 36.0 05/05/25 04:28 Respiratory Assessment Respiratory Assessment - director of physical therapy: Respiratory Tract Infection Hx - director of physical therapy Hx Respiratory Tract Infection No 05/05/25 04:37 STOP Sleep Apnea STOP Sleep Apnea - director of physical therapy: STOP Sleep Apnea - director of physical therapy Hx Hypertension No 05/05/25 04:33 Hx Sleep Apnea Yes 05/05/25 04:33 CPAP Yes 05/05/25 04:33 BIPAP No 05/05/25 04:33 Do you snore loudly (louder than talking or can be heard Do you often feel tired/ fatigued/ sleepy during daytime? Has anyone observed you stop breathing during sleep? STOP Results Positive 05/05/25 04:33 QUESTION #5 FULL TEXT : Do you snore loudly (louder than talking or can be heard through closed doors)? Tobacco Use History Tobacco Use History - director of physical therapy: Tobacco Use History - director of physical therapy Tobacco Use Smoking Status Never smoker 05/05/25 04:33 Hx Tobacco Use No 05/05/25 04:33 Years Smoking Packs Smoked per Day Smoking Cessation Date was within the last 15 years Hx Smoking Cessation Date Hx Smoking Cessation Counseling Hematologic Medial History Hematologic Hx - director of physical therapy: Hematologic Medical Hx - wound care physician Hx of Blood Transfusion No 05/05/25 04:33 Hx of Transfusion in last 3 No 05/05/25 04:33 Months Date of Last Transfusion (if within last 3 months) Ever experience any problems No 05/05/25 04:33 with transfusion(s)? Specify any problems Hx of Preganancy in last 3 N/A 05/05/25 04:33 Months Nurse Filling Out Transfusion AHINES 05/05/25 04:33 & Questions: Date: 05/05/25 05/05/25 04:33 Time: 04:35 05/05/25 04:33 Patient unable to answer at this time (ie. confused, unrespo /Reproduction History /Reproductive History - director of physical therapy: /Reproductive Hx- director of physical therapy Hx Now No 05/05/25 04:37 Gestational Age (in weeks): EDC: Hx Hx Para Hx Section SAB No 05/05/25 04:37 Active Medications Active Medications: Current Medications Generic Name Dose Route Start Last Admin Trade Name Freq PRN Reason Stop Dose Admin Ketorolac Tromethamine 15 mg 05/05/25 04:56 05/05/25 05:41 Ketorolac 15 Mg/Ml Vial IV 05/10/25 04:57 15 mg Q6H PRN PRN Administration Pain 1-10 Morphine Sulfate 2 mg 05/05/25 04:55 Morphine 2 Mg/Ml Syringe IV Q2H PRN PRN Pain Score 6-10 Ondansetron HCl 4 mg 05/05/25 04:57 05/05/25 05:40 Ondansetron 4 Mg/2 Ml Vial IV 4 mg Q6H PRN PRN Administration NAUSEA/VOMITING Sodium Chloride 10 - 40 ml 05/05/25 04:30 05/05/25 05:40 0.9% Saline Lock 10 Ml Syringe IV 10 ml UD PRN Administration SALINE FLUSH PFSH Medical History Wears glasses Cancer Prostate disease High cholesterol Back pain Injury of back History of diverticulitis Gastric reflux Asthma Shortness of breath on exertion CPAP (continuous positive airway pressure) dependence Non-smoker History of edema History of stress test Cardiology follow-up encounter Hypertension Home Medications ?Medication ?Instructions ?Recorded ?Last Taken ?Type allopurinol 300 mg tablet 300 mg PO DAILY 04/13/2501/21 10:00 History ascorbic acid (vitamin C) 500 mg 1 g PO DAILY 04/13/25 05/04/25 10:00 History tablet (C-500) atorvastatin 40 mg tablet 40 mg PO QHS 04/13/25 22:00 History cholecalciferol (vitamin D3) 125 125 mcg PO DAILY 03/3005/04/25 10:00 History mcg (5,000 unit) tablet (Vitamin D3) clopidogrel 75 mg tablet 75 mg PO DAILY 04/13/2503/31 History Held on 04/25/25. Instructions: Resume on 05/02/25. cyanocobalamin (vitamin B-12) 1,000 mcg PO DAILY 04/1305/04/25 10:00 History 1,000 mcg capsule losartan 25 mg tablet 25 mg PO DAILY 04/13/2501/21 10:00 History niacinamide 500 mg tablet 500 mg PO DAILY 04/13/2501/21 10:00 History pantoprazole 40 mg tablet,delayed 40 mg PO DAILY 04/1305/04/25 10:00 History release ropinirole 1 mg tablet 1 mg PO QHS 04/13/25 22:00 History oxycodone 5 mg tablet 5 mg PO Q6H PRN pain 3 days #14 04/25/25 05/03/25 13:00 Rx tabs phenazopyridine 100 mg tablet 100 mg PO TID #20 tabs 0 04/25/25 05/04/25 10:00 Rx (Pyridium) tamsulosin 0.4 mg capsule (Flomax) 0.4 mg PO DAILY #14 caps 04/25/25 05/04/25 10:00 Rx Allergy/AdvReac Type Severity Reaction Status Date / Time sulfamethoxazole (From AdvReac Intermediate Nausea/Vom/ Verified 04/25/25 12:00 Bactrim) Diarrhea trimethoprim (From Bactrim) AdvReac Intermediate Nausea/Vom/ Verified 04/25/25 12:00 Diarrhea Surgical History History of cardiac catheterization History of esophagogastroduodenoscopy (EGD) Hx of colonoscopy History of coronary artery stent placement Social History Smoking Status: Never smoker Review of Systems (Anesthesia) ROS Narrative System reviewed and no additional complaints, except as documented.
--- NOTE | 2025-05-05 07:36 | PCM.HP.STD ---
HPI - General General Date of Admission: 05/05/25 Date of Service: 05/05/25 HPI Narrative EDMUNDO COSTA, is a 69 M who presents to the hospital as a transfer from the outside hospital he underwent shockwave lithotripsy for a large stone in the right kidney then presented to the hospital after the stent removed removed with fragments stuck in the proximal ureter and within the ureter itself so he was admitted as a transfer from an outside hospital and the plan to take him to surgery today for ureteroscopy laser lithotripsy of stone fragments stent placement [facility] Medical History Wears glasses Cancer Prostate disease High cholesterol Back pain Injury of back History of diverticulitis Gastric reflux Asthma Shortness of breath on exertion CPAP (continuous positive airway pressure) dependence Non-smoker History of edema History of stress test Cardiology follow-up encounter Hypertension Home Medications ?Medication ?Instructions ?Recorded ?Last Taken ?Type allopurinol 300 mg tablet 300 mg PO DAILY 04/13/25 05/04/25 10:00 History ascorbic acid (vitamin C) 500 mg 1 g PO DAILY 04/13/25 05/04/25 10:00 History tablet (C-500) atorvastatin 40 mg tablet 40 mg PO QHS 04/13/25 05/04/25 22:00 History cholecalciferol (vitamin D3) 125 125 mcg PO DAILY 04/13/25 05/04/25 10:00 History mcg (5,000 unit) tablet (Vitamin D3) clopidogrel 75 mg tablet 75 mg PO DAILY 04/13/25 04/18/25 History Held on 04/25/25. Instructions: Resume on 05/02/25. cyanocobalamin (vitamin B-12) 1,000 mcg PO DAILY 04/13/25 05/04/25 10:00 History 1,000 mcg capsule losartan 25 mg tablet 25 mg PO DAILY 04/13/25 05/04/25 10:00 History niacinamide 500 mg tablet 500 mg PO DAILY 04/13/25 05/04/25 10:00 History pantoprazole 40 mg tablet,delayed 40 mg PO DAILY 04/13/25 05/04/25 10:00 History release ropinirole 1 mg tablet 1 mg PO QHS 04/13/25 05/04/25 22:00 History oxycodone 5 mg tablet 5 mg PO Q6H PRN pain 3 days #14 04/25/25 05/03/25 13:00 Rx tabs phenazopyridine 100 mg tablet 100 mg PO TID #20 tabs 04/25/25 05/04/25 10:00 Rx (Pyridium) tamsulosin 0.4 mg capsule (Flomax) 0.4 mg PO DAILY #14 caps 04/25/25 05/04/25 10:00 Rx Allergy/AdvReac Type Severity Reaction Status Date / Time sulfamethoxazole (From AdvReac Intermediate Nausea/Vom/ Verified 04/25/25 12:00 Bactrim) Diarrhea trimethoprim (From Bactrim) AdvReac Intermediate Nausea/Vom/ Verified 04/25/25 12:00 Diarrhea Surgical History History of cardiac catheterization History of esophagogastroduodenoscopy (EGD) Hx of colonoscopy History of coronary artery stent placement Social History Smoking Status: Never smoker Vital Signs Vital Signs Vital Signs: 05/05/25 04:28 05/05/25 07:25 Temperature 98.0 F 98.0 F Temperature Source Temporal Pulse Rate 82 82 Respiratory Rate 16 16 Blood Pressure 160/83 H 160/83 H Blood Pressure Mean 108 Blood Pressure Source Monitor Blood Pressure Position Semi-Fowlers Blood Pressure Location Left Arm Pulse Ox 99 99 Oxygen Delivery Method Room Air Weight Weight: 110.6 kg Body Mass Index (BMI) 36.0 Physical Exam Const alert and oriented x3 General Appearance: cooperative HEENT normocephalic, head/scalp atraumatic, EAC's normal and TM's normal bilaterally Eyes PERRL and EOMs intact bilaterally Pupil: sluggish Neck no lymphadenopathy, supple and no JVD General: trachea midline Lymph Lymphatic: no lymphadenopathy noted, lymphedema and lymphadenopathy Resp normal respiratory effort, normal air movement and clear to auscultation bilaterally Cardio regular rate, regular rhythm and peripheral pulses 2+ throughout GI soft to palpation, non-tender and non-distended Extremity normal capillary refill and no clubbing, cyanosis or edema General Extremity: no tenderness to palpation of joints or extremities Skin no rashes or lesions noted General Skin Exam: turgor normal Lesions: no lesions Rashes: no rashes Neuro CN's II-XII intact bilaterally Speech: speech normal Motor Exam: strength 5/5 throughout; Negative for general weakness Psych thought process normal, cooperative and affect normal Appearance: appropriate Results Lab / Micro Data 05/05/25 05:52 05/05/25 05:52 Labs: Laboratory Results - last 24 hr 05/05/25 05:52: WBC 12.0 H, RBC 4.65, Hgb 14.9, Hct 43.0, MCV 92.5, MCH 32.0, MCHC 34.7, RDW Std Deviation 45.0 H, RDW Coeff of Sarah 13.3, Plt Count 191, MPV 8.4, Immature Gran % (Auto) 0.600, Neut % (Auto) 73.1 H, Lymph % (Auto) 17.1 L, [place] % (Auto) 8.5, Eos % (Auto) 0.5, Baso % (Auto) 0.2, Absolute Neuts (auto) 8.7 H, Absolute Lymphs (auto) 2.05, Nucleated RBC % 0, Sodium 138, Potassium 3.6, Chloride 106, Carbon Dioxide 20.0 L, Anion Gap 12, BUN 12, Creatinine 1.52 H, Estim Creat Clear Calc 57.01, Est GFR (MDRD) Non-Af 50 L, BUN/Creatinine Ratio 7.8 L, Glucose 116 H, Calcium 8.8 Assessment & Plan Assessment/Plan (1) Calculus of kidney: PLAN: Plan to take him to surgery today to laser stone to place a stent
[2025-05-05] MEDS: LACTATED RINGERS IV (07:46)
[2025-05-05] MEDS: Lidocaine 1% (5 ml sdv) 5 ML Vial 4 ML IV (07:51)
[2025-05-05] MEDS: fentaNYL 100 MCG/2 ML Ampul IV (07:52)
[2025-05-05] MEDS: Midazolam 2 MG/2 ML Syringe IV (07:52)
--- NOTE | 2025-05-05 09:43 | OP.PCM_ITS ---
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: No Type of Anesthesia: General RN Documented Start/Stop Times: Operation Date: 05/05/25 07:40 Case Time Anesthesia Start 05/05/25 07:44 Into Room 05/05/25 07:44 Procedure Start 05/05/25 08:04 Procedure Start Time: 08:04 Procedure Stop Time: :44 Select all DRAINS/GRAFTS/IMPLANTS that apply: Drains Drain details: 6 Bulgarian by 26 cm stent Estimated Blood Loss: 10 cc Specimen collected: No Description of surgery: Indication 69-year-old male who underwent shockwave lithotripsy about a week and a half ago stone did break up really well on x-ray stent was removed and and en he presented to outside emergency room with severe pain CAT scan showed that multiple stone fragments in the ureter that have blocked his right kidney so he was transferred over and taken to surgery today to laser out these stone fragments that are not been able to pass through the ureter. Patient was taken back to the operating room after the induction of anesthesia he was placed in dorsolithotomy position. I went into the bladder with a 21 Bulgarian rigid cystourethroscope put a wire up the right kidney and then over the wire went in with a flexible ureteroscope was able to get into the ureter and immediately encountered a significant burden of stones in the distal ureter I used a 200 ?m laser fiber and slowly lasered the stones in the little pieces I then backed out of the ureter and let the fragments pass then went up the ureter further and encountered another significant burden of stone stuck in the ureter very carefully lasered the stones and then backed out of the ureter and let these fragments pass and then finally went up to the proximal ureter and encountered the last fragment of stones in the ureter these were lasered completely and then backed out of the ureter and these all these fragments passed up and up to the kidney finally was able to get the entire ureter clear went all the way to kidney found a small pocket of stones in the midpole these were lasered little tiny pieces no other major fragments were seen I then put a wire up or my way down the ureter no other stone stent fragment seen along the ureter all the major fragments and passed the put a stent up on the right kidney the stent coiled in the bladder and in the kidney I had to push a stent little bit back in the prostate but eventually coiled properly and the stent coiled in the kidney bladder in good position. After successfully lasering all the fragments that were in the ureter will see him in 10 days to remove stent Surgical Findings: Stones in the ureter all lasered and removed from the ureter stent placed Complications Complications: Yes Complication Details: stones stuck in ureter some mucosal tearing in the ureter from stone and lasering stone Admit VTE Documentation VTE Present on Admission: No VTE Mechan Device Prophylaxis: SCD's VTE Pharm Prophylaxis ordered?: No
--- NOTE | 2025-05-05 10:04 | PCM.POST.ANE ---
Anesthesia: Postop Eval I Current Vital Signs Temperature: 96.8 F Pulse Rate: 76 Blood Pressure: 142/71 Respiratory Rate: 16 Pulse Ox: 100 Oxygen Delivery Method: Room Air Assessment Airway patent: Yes Spontaneous unlabored respirations: Yes Mental status: Awake nausea: No Vomiting: No Anesthesia Complication: Yes Anesthesia Complication Comment:: pinched right upper lip during intubation with glidescope while manipulating position for ET placement. cleaned. patient notified/aware Fluid Hydration Crystalloid volume administer (ml): 800 Total IV fluid infused: 800 Progress Note Anesthesia document: Postop Eval 1 completed: Yes
--- NOTE | 2025-05-05 10:14 | PCM.POSTANE2 ---
Anesthesia Postop Eval I Sum Postop Eval Completion status Anesthesia document: Postop Eval 1 completed: Yes Anesthesia Postop Eval I Summary Anesthesia Postop Eval I Summary: Anesthesia Postop Eval I: Assessment Summary Airway patent Yes 05/05/25 10:13 Spontaneous unlabored Yes 05/05/25 10:13 respirations Mental status Awake 05/05/25 10:13 nausea No 05/05/25 10:13 Vomiting No 05/05/25 10:13 Anesthesia Postop Eval I: Fluid Summary Crystalloid volume administer 800 05/05/25 10:14 (ml) Colloids volume administered ( ml) Blood Product volume administered (ml) Total IV fluid infused 800 05/05/25 10:14 Anesthesia Postop Eval I: Summary Notes Anesthesia Complication Yes 05/05/25 10:13 Anesthesia Complication pinched right 05/05/25 10:14 Comment: upper lip during intubation with glidescope while manipulating position for ET placement. cleaned . patient notified /aware Post-operative progress note Anesthesia: Postop Eval II Evaluation Mental status: Awake and Calm Pain Level: 0 nausea: No Vomiting: No
--- NOTE | 2025-05-05 10:49 | NURSING ---
Back in room from surgery at this time.
[2025-05-05] MEDS: 0.9% Normal Saline (1000mL) 1,000 ML 125 ML IV ×2 (11:02→18:37)
--- OUTSIDE RECORDS SUMMARY | 2025-05-05 11:26 | XMS RPT_ITS | CCD ---
Author Organization [facility] [employer]ini[employer] Care Team Providers 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 Name Role Phone Aramis Beaulieu Unavailable [phone] BARRETO, TRACE ETIENNE Unavailable Unavailable BEAULIEU, CHRISTOPHER [...] Unavailable BAZAN, ISABELA W Attending Unavailable REY, JAARD Primary Care Unavailable BAZAN, ISABELA W Attending Unavailable REY, JARAD Primary Care Unavailable ISABELA BAZAN Attending Unavailable REY, JARAD Primary Care Unavailable Robb SKY, [facility] Primary Care Provider REY, JARAD Primary Care Unavailable ZAK ALVAREZ Attending Unavailable ISABELA BAZAN Referring Unavailable REY, JARAD Primary Care Unavailable REY, JARAD Referring Unavailable REY, JARAD Primary Care Unavailable KAYLYNN ASHTON Attending Unavailable KAYLYNN ASHTON Referring Unavailable REY, JARAD Primary Care Unavailable Robb SKY, Dr. Abraham Primary Care Provider [phone] DresherMelba Attending Provider [phone] Dresher, Melba Referring Provider Genaro SKY, Dr. Harjit Simms Attending Provider Genaro SKY, Dr. Harjit Simms Referring Provider Rey, Jarad Primary Care Unavailable Harjit Lam Referring Unavailable Harjit Lam Attending Unavailable Dresher, Melba Attending Unavailable Rey, Jarad Primary Care Unavailable Dresher, Melba Referring Unavailable Allergies Allergy Classification Reported Allergen(s) Allergy Type Date of Onset Reaction(s) Facility (1 source) No Known Allergies; Translations: [No Known Allergies] Propensity to adverse reactions to drug (disorder) [facility] Repository (1 source) No Known Medication Allergies; Translations: [No Known Medication Allergies] Propensity to adverse reactions to drug (disorder) [facility] Repository (2 sources) Sulfamethoxazole / Trimethoprim Drug Allergy 04-11-20 25 Nausea Only, Other, Drowsiness [facility] (2 sources) Sulfamethoxazole Drug Allergy 04-13-20 25 Nausea/Vom/[facility] (2 sources) Trimethoprim Drug Allergy 04-13-20 25 Nausea/Vom/[facility] (1 source) Sulfamethoxazole Drug Allergy 04-25-20 [facility] Repository (1 source) Trimethoprim Drug Allergy 04-25-20 [facility] Repository Medications Current Medications Medication Drug Class(es) [...] days. 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 TAKE 1 TABLET [...] MG tablet Indications: 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 TAKE 1 TABLET DAILY 90 tablet 3 06/11/2023 Active Start: 03-09-2022 clopidogrel (P LAVIX) 75 MG tablet Indications: 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 TAKE 1 TABLET DAILY 90 tablet 3 03/09/2022 Active Start: 06-12-2021 clopidogrel (P LAVIX) 75 MG tablet Indications: 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 TAKE 1 TABLET DAILY 90 tablet 3 06/12/2021 Active Start: 06-10-2020 clopidogrel (P LAVIX) 75 MG tablet Indications: 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 TAKE 1 TABLET DAILY 90 tablet 3 06/10/2020 Active Start: 2018 take 1 tablet by cuoc th once daily clopidogrel (PLAVIX) 75 MG [...] AFFECTED AREAS OF THE SCALP AND LEFT CONFUCIANISM TWICE DAILY FOR 3 WEEKS 04/24/2024 Active [...] MG tablet Indications: 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 TAKE 1 TABLET DAILY 90 tablet 3 03/09/2022 Active Start: 06-12-2021 losartan (COZA AR) 25 MG tablet Indications: 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 TAKE 1 TABLET DAILY 90 tablet 3 06/12/2021 Active Start: 06-10-2020 losartan (COZA AR) 25 MG tablet Indications: 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 TAKE 1 TABLET [...] SL tablet Indications: 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 Place 1 tablet under the tongue every 5 minutes as needed for Chest pain 25 tablet 06/11/2023 Active Start: 06-15-2022 nitroGLYCERIN (NITROSTAT) 0.4 MG SL tablet Indications: 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 Place 1 tablet under the tongue every 5 minutes as needed for Chest pain 25 tablet 0 06/15/2022 Active Start: 04-23-2015 nitroGLYCERIN (NITROSTAT) 0.4 MG SL tablet Indications: 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 Place 1 tablet [...] heart disease (20 sources) Coronary arteriosclerosis in kenaitze artery; Translations: [Atherosclerotic heart disease of kenaitze coronary artery without angina pectoris] Onset: 6 [...] Unclassified (2 sources) Athscl heart disease of kenaitze coronary artery w/o ang pctrs / I25.10(ICD-9) [...] 05-04-2018 Unclassified (1 source) 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 C44.719 Onset: 05-04-2018 Unclassified (16 sources) Onset: 10-07-2023 Resolved: 09-13-2024 10-07-2023 Results Test Name Value Interpretation Reference Range Facility CBC W Auto Differential pane l (Bld)on 05-04-2025 Basophils (Bld) [#/Vol] 0.03 10*3/uL [facility] Basophils/100 WBC (Bld) 0.3 % 0.0 - 2.0 % [facility] Eosinophils (Bld) [#/Vol] 0.04 10*3/uL [facility] Eosinophils/100 WBC (Bld) 0.3 % 0.0 - 6.0 % [facility] Erythrocyte distribution width (RBC) [Ratio] 13.1 % 11.5 - 14.5 % [facility] Hematocrit (Bld) [Volume fraction] 43.6 % 41.0 - 52.0 % [facility] Hemoglobin (Bld) [Mass/Vol] 14.8 g/dL 13.5 - 17.5 g/dL [facility] Immature granulocytes (Bld) [#/Vol] 0.04 10*3/uL [facility] Immature granulocytes/100 WBC (Bld) 0.3 % 0.0 - 0.9 % [facility] Comment on above: Immature Granulocyte Count (IG) includes promyelocytes, myelocytes and metamyelocytes but does not include bands. Percent differential counts (%) should be interpreted in the context of the absolute cell counts (cells/UL). Interpretation and review of laboratory results Abnormal [facility] Lymphocytes (Bld) [#/Vol] 1.25 10*3/uL [facility] Lymphocytes/100 WBC (Bld) 10.9 % 13.0 - 44.0 % [facility] MCH (RBC) [Entitic mass] 31.4 pg 26.0 - 34.0 pg [facility] MCHC (RBC) [Mass/Vol] 33.9 g/dL 32.0 - 36.0 g/dL [facility] MCV (RBC) [Entitic vol] 92 fL 80 - 100 fL [facility] Monocytes (Bld) [#/Vol] 0.82 10*3/uL [facility] Monocytes/100 WBC (Bld) 7.1 % 2.0 - 10.0 % [facility] Neutrophils (Bld) [#/Vol] 9.34 10*3/uL High [facility] Comment on above: Percent differential counts (%) should be interpreted in the context of the absolute cell counts (cells/uL). Neutrophils/100 WBC (Bld) 81.1 % 40.0 - 80.0 % [facility] Nucleated RBC/100 WBC (Bld) [Ratio] 0.0 % [facility] Platelets (Bld) [#/Vol] 190 10*3/uL [facility] RBC (Bld) [#/Vol] 4.72 10*6/uL [facility] WBC (Bld) [#/Vol] 11.5 10*3/uL [facility] CT Abdomen and Pelvis W cont [...] Andrew Sosa 05/04/2025 11:53 PM Dictation workstation: [id number] Interpreted By: Andrew Curiel, STUDY: CT ABDOMEN PELVIS W IV CONTRAST; 05/04/2025 11:06 pm INDICATION: Signs/Symptoms:Abdominal pain, history of kidney stones, nausea or vomiting. COMPARISON: CT ABDOMEN PELVIS WO IV CONTRAST 03/25/2025 ACCESSION NUMBER(S): [id number] ORDERING CLINICIAN: ELICIA LOVE TECHNIQUE: Axial CT [...] PELVIS WO IV CONTRAST 03/25/2025 ACCESSION NUMBER(S): [id number] ORDERING CLINICIAN: ELICIA LOVE TECHNIQUE: Axial CT [...] Andrew Sosa 05/04/2025 11:53 PM Dictation workstation: [id number] [facility] Work Phone: Radiology Study observation (narrative) [facility] Work Phone: CT Abdomen and Pelvis W cont rast IVOrdered By: Andrew Sosa on 05-04-2025 [facility] Work Phone: Comprehensive metabolic 2000 panelon 05-04-2025 Albumin BCP dye [Mass/Vol] 4.0 g/dL 3.4 - 5.0 g/dL [facility] ALP [Catalytic activity/Vol] 138 U/L High 33 - 136 U/L [facility] ALT With P-5'-P [Catalytic activity/Vol] 15 U/L 10 - 52 U/L [facility] Comment on above: Patients treated wit h Sulfasalazine may generate falsely decreased results for ALT. Anion gap [Moles/Vol] 12 mmol/L 10 - 20 mmol/L [facility] AST With P-5'-P [Catalytic activity/Vol] 15 U/L 9 - 39 U/L [facility] Bilirubin [Mass/Vol] 1.6 mg/dL High 0.0 - 1 .2 mg/dL [facility] Calcium [Mass/Vol] 9.3 mg/dL 8.6 - 10. 3 mg/dL [facility] Chloride [Moles/Vol] 103 mmol/L 98 - 10 7 mmol/L [facility] CO2 [Moles/Vol] 25 mmol/L 21 - 32 mmol/L [facility] Creatinine [Mass/Vol] 1.60 mg/dL High 0.50 - 1.30 mg/dL [facility] GFR/1.73 sq M.predicted among non-blacks MDRD (S/P/Bld) [Vol rate/Area] 47 mL/min/{1.73_m2} Low - PINF [facility] Comment on above: Calculations of ashely mated GFR are performed using the 2020 CKD-EPI Study Refit equation without the race variable for the IDMS-Traceable creatinine methods. https://jasn.asnjournals.org/content/early/ASN.3856307 988 Glucose [Mass/Vol] 138 mg/dL High 74 - 99 mg/dL [facility] Interpretation and review of laboratory results Abnormal [facility] Potassium [Moles/Vol] 3.9 mmol/L 3.5 - 5.3 mmol/L [facility] Protein [Mass/Vol] 6.4 g/dL 6.4 - 8.2 g/dL [facility] Sodium [Moles/Vol] 136 mmol/L 136 - 145 mmol/L [facility] Urea nitrogen [Mass/Vol] 14 mg/dL 6 - 23 mg/dL [facility] Lactateon 05-04-2025 Lactate [Moles/Vol] 1.5 mmol/L 0.4 - 2. 0 mmol/L [facility] Lactate [Moles/Vol]on 2024 Interpretation and review of laboratory results Normal [facility] Venipuncture immedia tely after or during the administration of Metamizole may lead to falsely low results. Testing should be performed immediately prior to Metamizole dosing. [facility] Lipaseon 05-04-2025 Lipase [Catalytic activity/Vol] 12 U/L 9 - 82 U/L [facility] Lipase [Catalytic activity/V ol]on 05-04-2025 Interpretation and review of laboratory results Normal [facility] Venipuncture immedia tely after or during the administration of Metamizole may lead to falsely low results. Testing should be performed immediately prior to Metamizole dosing. [facility] No Panel Informationon 05-04 [facility] Urinalysis complete W Reflex Culture panel (U)on 05-04-2025 Appearance (U) Clear Clear [facility] Bilirubin (U) [Mass/Vol] Negative NEGATIVE mg/dL [facility] Color (U) Dark-Yellow Light-Yellow , Yellow, Dark-Yellow [facility] Glucose Auto test strip (U) [Mass/Vol] Normal Normal mg/dL [facility] Interpretation and review of laboratory results Abnormal [facility] Ketones (U) [Mass/Vol] Negative NEGATIVE mg/dL [facility] Leukocyte esterase Auto test strip Ql (U) Negative NEGATIVE [facility] Nitrite Auto test strip Ql (U) 1+ Abnormal NEGATIVE [facility] pH (U) 6.5 [pH] 5.0, 5.5, 6.0, 6.5, 7.0, 7.5, 8.0 [facility] Protein (U) [Mass/Vol] Negative NEGATIVE, 10 (TRACE), 20 (TRACE) mg/dL [facility] RBC (U) [#/Vol] Negative NEGATIVE mg/dL [facility] Specific gravity (U) [Rel density] 1.015 1.005 - 1.035 [facility] Urobilinogen (U) [Mass/Vol] Normal Normal mg/dL [facility] Urinalysis microscopic panel Auto Ql (U)on 05-04-2025 Interpretation and review of laboratory results Normal [facility] RBC Auto (Urine sed) [#/Area] NONE NONE, 1-2, 3-5 /HPF [facility] WBC Auto (Urine sed) [#/Area] 1-5 1-5, NONE /HPF [facility] Abdomen Single Viewon 2024 [facility] [address] [place] [address] [id number] Abdomen Single View MR#: [id number] Acct: [id number] Name: RAMON COSTA Rep #: [id number] : 1955 M 69 From: Kartik Bernal MD PCP: Jarad Rey MD Status: DEP [facility] Study: Abdomen Single View Date of Exam: 04/25/25 Exam# [id number] Ordering Dr: Harjit Lam MD EXAM: XR [...] measuring up to 10 mm. Reading Location: [facility] CC: Dr. Harjit Lam MD; Jarad Rey MD Cardiothoracic Physiotherapist: Signed Normal [facility] Discharge Instructionon 03-31 Discharge Instruction [facility] Medical Records Department [address] [place] [address] Instructions for Home/Discharge Instructions 04/25/25 1547 MR#: [id number] Acct: [id number] Name: RAMON COSTA Rep #: [id number] : 1955 69 From: Harjit Lam MD [...] Up With: Harjit Lam MD When: Call [phone] for an appointment Test Results: Test results from this visit will be discussed in further detail at your follow-up appointment, if applicable. Discharge Plan Admission Primary Reason for Your Visit: ESWL Attending Provider: Harjit Lam Primary Care Provider: Jarad Rey Instructions Print Language: [place] Islander Discharge Orders/Prescriptions Prescriptions: New ciprofloxacin HCl [Cipro] [...] with an KUB prior to appt. with in. 04/25/25 1547 Harjit Lam MD cc: Jarad Rey MD * Signed [facility] MR/POSTOP.[facility] 04-25-2025 MR/POSTOP.[facility] Medical Records Department [address] [place] [address] Anesthesia Postop Eval I 04/25/251646 MR#: [id number] Acct: [id number] Name: RAMON COSTA Rep #: [id number] : 1955 69 From: Gonzalo Saucedo CRNA PCP: Jarad Rey MD Status:REG SDC Y Race: C Location: [place] [address] Anesthesia: Postop Eval I Current Vital Signs [...] CRNA Cosigner Signature: Date CC: Signed Normal [facility] MR/[id number] 04-25-2025 MR/POSTOPAN2 [facility] Medical Records Department [address] [place] [address] Anesthesia Postop Eval II 04/25/251810 MR#: [id number] Acct: [id number] Name: RAMON COSTA Rep #: [id number] : 1955 69 From: Delonte Israel MD PCP: Jarad Rey MD Status:DEP [facility] Y Race: C [place] [facility] Anesthesia Postop Eval I Sum Postop Eval Completion status Anesthesia document: Postop Eval 1 completed: Yes Anesthesia Postop Eval I Summary Anesthesia Postop Eval I Summary: Anesthesia Postop Eval I: Assessment Summary Airway patent Yes 04/25/25 16:48 [employer] SAL[employer] [email or web address] Spontaneous unlabored Yes 04/25/25 16:48 [employer] SALES [email or web address] respirations Mental status Awake 04/25/25 16:48 [employer]AIL SALES [email or web address] nausea No 04/25/25 16:48 [employer]AIL SALES [email or web address] Vomiting No 04/25/25 16:48 RETAIL SALES [email or web address] Anesthesia Postop Eval I: Fluid Summary Crystalloid volume administer 900 04/25/25 16:48 RETAIL SALES [email or web address] (ml) Colloids volume administered ( ml) Blood Product volume administered (ml) Total IV fluid infused 900 04/25/25 16:48 RETAIL SALES [email or web address] Anesthesia Postop Eval I: Summary Notes Anesthesia Complication No 04/25/25 16:48 RETAIL SALES [email or web address] Anesthesia Complication Comment: Post-operative progress note Anesthesia: Postop Eval II Evaluation Mental status: Awake Pain Level: 0 nausea: No Vomiting: No Complications Anesthesia Complication: No 04/25/251810 Date Delonte Israel MD Cosigner Signature: Date CC: Signed [facility] Operative Reporton 5 Operative Report [facility] Medical Records Department [address] [place] [address] Operative Report 04/25/25 1620 MR#: [id number] Acct: [id number] Name: RAMON COSTA Rep #: [id number] : 1955 69 From: Harjit Lam MD PCP: Jarad Rey MD Status:REG [facility] Location: [place] [address] Operative Report (Standard) Operative Information Date of Procedure: 04/25/25 Pre-Operative Diagnosis: Right kidney stones Post-Operative Diagnosis: same Surgery/Procedure Performed: Cystoscopy right stent placement and right ESWL handbag frames inspector: No Type of Anesthesia: General RN Documented [...] in usual sterile fashion. Using a 21 Bulgarian rigid cystourethroscope the entire length of the urethra was normal then went into the bladder. Identified the trigone the left and right ureteral orifice. I then cannulated the right ureteral orifice and advanced a wire up into the kidney. I then backloaded a 5 Bulgarian open ended catheter over the wire and injected contrast to delineate the anatomy. After the retrograde was performed I then used fluoroscopic images and guidance to advanced a wire up into the kidney and over the 0.038 glidewire I advanced a 6 Bulgarian by 26 cm double pigtail stent. 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 Hx Hospitalization No 04/13/25 13:21 Any Problems [...] take am of surgery PONV PONV - guest service supervisor: PONV - guest service supervisor Female No 04/13/25 13:21 HX of Motion Sickness No 04/13/25 13:21 HX of N/V After Surgery No 04/13/25 13:21 Non-Smoker Yes 04/13/25 13:21 Duration of Surgery greater Yes 04/13/25 13:21 than 60 minutes Number of Risk Factors 2 04/13/25 13:21 PONV Score Moderate Risk 04/13/25 13:21 Respiratory Assessment Respiratory Assessment - guest service supervisor: Respiratory Tract Infection Hx - guest service supervisor Hx Respiratory Tract Infection No 04/13/25 13:21 STOP Sleep Apnea STOP Sleep Apnea - guest service supervisor: STOP Sleep Apnea - guest service supervisor Hx Hypertension Yes: CONTROLLED WITH MED 04/13/25 [...] Tobacco Use History Tobacco Use History - guest service supervisor: Tobacco Use History - guest service supervisor Tobacco Use Smoking Status Never smoker 04/13/25 13:21 Hx Tobacco Use No 04/13/25 13:21 Years Smoking Packs Smoked per Day Smoking Cessation Date was within the last 15 years Hx Smoking Cessation Date Hx Smoking Cessation Counseling Hematologic Medial History Hematologic Hx - guest service supervisor: 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 Normal [facility] Abdomen Single Viewon 2024 Abdomen Single View [facility] Imaging Services [address] [place], [place] [address] Abdomen Single View MR#: [id number] Acct: [id number] Name: RAMON COSTA Rep #: [id number] : 1955 M 69 From: Aryan Guerrero MD PCP: Jarad Rey MD Status: REG CLI Study: Abdomen Single View Date of Exam: 04/10/25 Exam# [id number] Ordering Dr: Melba Barr PROCEDURE: ABDOMEN SINGLE [...] Bony structures show degenerative change Reading Location: [id number] CC: Jarda Rey MD; Melba Barr Cardiothoracic Physiotherapist: Signed Normal [facility] PSA,Total - Annual Screenon 04-10-2025 PSA,TOT SCREEN 2.38 ng/mL Normal 0.02-4.00 [facility] Comment on above: Result Comment: This test [...] values. Performed By: #### L [phone] #### [facility] Laboratory [address] [place], [address] US GALLBLADDER RUQon 025 US GALLBLADDER RUQ EXAMINATION: RIGHT UPPER QUADRANT ULTRASOUND 04/09/2025 10:42 am COMPARISON: U/S abdomen limited 03/06/2024, CT abdomen/pelvis 08/10/2023 HISTORY: ORDERING SYSTEM PROVIDED HISTORY: Gallbladder polyp TECHNOLOGIST PROVIDED HISTORY: This procedure can be scheduled via Celecthart. What reading provider will be dictating this [...] MD 04/09/25 Final result Normal [facility] US Gallbladderon 04-09-2025 1. Diffuse hepatic steatosis. 2. Cholelithiasis without sonographic evidence of acute cholecystitis. 3. 0.6 cm gallbladder polyp. 4. Right renal cortical thinning. 5. 7.9 cm debris containing right renal cyst. [facility] RADIOLOGY EXAMINATION: RIGHT UPPER QUADRANT ULTRASOUND [...] is a 7.9 cm debris containing cyst. [facility] RADIOLOGY Cas Alexander MD - 04/09/2025 EXAMINATION: RIGHT UPPER QUADRANT ULTRASOUND 04/09/2025 10:42 am COMPARISON: U/S abdomen limited 03/06/2024, CT abdomen/pelvis 08/10/2023 HISTORY: ORDERING SYSTEM PROVIDED HISTORY: Gallbladder polyp TECHNOLOGIST PROVIDED HISTORY: This procedure can be scheduled via Celecthart. What reading provider will be dictating this [...] 7.9 cm debris containing right renal cyst. [facility] [facility] Study observation (narrative) [facility] US GallbladderOrdered By: Robert Alexander on 04-09-2025 [facility] Work Phone: Bacteriaon 03-25-2025 Bacteria identified Cx Nom (U) Test: Urine Culture Specimen Source: Clean Catch/Voided Specimen Type: Urine Specimen Date: 03/25/20252250 Result Date: 03/27/2025804 Result Status: Final result Abnormal: No Resulting Lab: [facility] [id number] [place] [address] CULTURE No growth Normal [facility] Comment on above: Performed By: #### 6 30-4 #### SULLY Schmidt ([id number]) [facility] ([facility]) [address] [place] [address] Basic metabolic 2000 panelon 03-25-2025 Anion gap [Moles/Vol] 9 mmol/L Low 10 - 20 mmol/L [facility] Calcium [Mass/Vol] 8.8 mg/dL 8.6 - 10. 3 mg/dL [facility] Chloride [Moles/Vol] 106 mmol/L 98 - 10 7 mmol/L [facility] CO2 [Moles/Vol] 27 mmol/L 21 - 32 mmol/L [facility] Creatinine [Mass/Vol] 1.40 mg/dL High 0.50 - 1.30 mg/dL [facility] GFR/1.73 sq M.predicted among non-blacks MDRD (S/P/Bld) [Vol rate/Area] 55 mL/min/{1.73_m2} Low - PINF [facility] Comment on above: Calculations of ashely mated GFR are performed using the 2020 CKD-EPI Study Refit equation without the race variable for the IDMS-Traceable creatinine methods. https://jasn.asnjournals.org/content//ASN.3759017 988 Glucose [Mass/Vol] 105 mg/dL High 74 - 99 mg/dL [facility] Interpretation and review of laboratory results Abnormal [facility] Potassium [Moles/Vol] 3.8 mmol/L 3.5 - 5.3 mmol/L [facility] Sodium [Moles/Vol] 138 mmol/L 136 - 145 mmol/L [facility] Urea nitrogen [Mass/Vol] 12 mg/dL 6 - 23 mg/dL [facility] Anion gap [Moles/Vol] 9 mmol/L Low 10-20 [facility] Comment on above: Performed By: #### 2 4321-2 #### CHRISTIE WATSON ([id number]) [facility] ([facility]) [address] [place] [address] 62565 Calcium [Mass/Vol] 8.8 mg/dL Normal 8.6-10.3 [facility] Comment on above: Performed By: #### 2 4321-2 #### CHRISTIE WATSON ([id number]) [facility] ([facility]) [facility] [place] [address] Chloride [Moles/Vol] 106 mmol/L Normal 98-107 [facility] Comment on above: Performed By: #### 2 4321-2 #### CHRISTIE WATSON ([id number]) [facility] ([facility]) [address] [place] [address] 86973 CO2 [Moles/Vol] 27 mmol/L Normal 21-32 [facility] Comment on above: Performed By: #### 2 4321-2 #### CHRISTIE WATSON ([id number]) [facility] ([facility]) [facility] [place] [address] Creatinine [Mass/Vol] 1.40 mg/dL High 0.50-1.30 [facility] Comment on above: Performed By: #### 2 4321-2 #### CHRISTIE WATSON ([id number]) [facility] ([facility]) [address] [place] [address] 39073 Glomerular filtration rate 55 mL/min/1.73m*2 Low >60 [facility] Comment on above: Result Comment: Calc ulations of estimated GFR are performed using the 2020 CKD-EPI Study Refit equation without the race variable for the IDMS-Traceable creatinine methods. https://jasn.asnjournals.org/content/early//ASN.7108023 988 Performed By: #### 2 4321-2 #### CHRISTIE WATSON ([id number]) [facility] ([facility]) [address] [place] [address] 15350 Glucose [Mass/Vol] 105 mg/dL High 74-99 [facility] Comment on above: Performed By: #### 2 4321-2 #### CHRSITIE WATSON ([id number]) [facility] ([facility]) [address] [place] [address] 21421 Potassium [Moles/Vol] 3.8 mmol/L Normal 3.5-5.3 [facility] Comment on above: Performed By: #### 2 4321-2 #### CHRISTIE WATSON ([id number]) [facility] ([facility]) [address] [place] [address] 58989 Sodium [Moles/Vol] 138 mmol/L Normal 136-145 [facility] Comment on above: Performed By: #### 2 4321-2 #### CHRISTIE WATSON ([id number]) [facility] ([facility]) [address] [place] [address] 41733 Urea nitrogen [Mass/Vol] 12 mg/dL Normal 6-23 [facility] Comment on above: Performed By: #### 2 4321-2 #### CHRISTIE WATSON ([id number]) [facility] ([facility]) [address] [place] [address] CBC W Auto Differential pane l (Bld)on 03-25-2025 Basophils (Bld) [#/Vol] 0.04 10*3/uL [facility] Basophils/100 WBC (Bld) 0.4 % 0.0 - 2.0 % [facility] Eosinophils (Bld) [#/Vol] 0.23 10*3/uL [facility] Eosinophils/100 WBC (Bld) 2.5 % 0.0 - 6.0 % [facility] Erythrocyte distribution width (RBC) [Ratio] 14.0 % 11.5 - 14.5 % [facility] Hematocrit (Bld) [Volume fraction] 43.6 % 41.0 - 52.0 % [facility] Hemoglobin (Bld) [Mass/Vol] 14.7 g/dL 13.5 - 17.5 g/dL [facility] Immature granulocytes (Bld) [#/Vol] 0.02 10*3/uL [facility] Immature granulocytes/100 WBC (Bld) 0.2 % 0.0 - 0.9 % [facility] Comment on above: Immature Granulocyte Count (IG) includes promyelocytes, myelocytes and metamyelocytes but does not include bands. Percent differential counts (%) should be interpreted in the context of the absolute cell counts (cells/UL). Lymphocytes (Bld) [#/Vol] 2.64 10*3/uL [facility] Lymphocytes/100 WBC (Bld) 28.4 % 13.0 - 44.0 % [facility] MCH (RBC) [Entitic mass] 31.7 pg 26.0 - 34.0 pg [facility] MCHC (RBC) [Mass/Vol] 33.7 g/dL 32.0 - 36.0 g/dL [facility] MCV (RBC) [Entitic vol] 94 fL 80 - 100 fL [facility] Monocytes (Bld) [#/Vol] 0.87 10*3/uL [facility] Monocytes/100 WBC (Bld) 9.4 % 2.0 - 10.0 % [facility] Neutrophils (Bld) [#/Vol] 5.50 10*3/uL [facility] Comment on above: Percent differential counts (%) should be interpreted in the context of the absolute cell counts (cells/uL). Neutrophils/100 WBC (Bld) 59.1 % 40.0 - 80.0 % [facility] Nucleated RBC/100 WBC (Bld) [Ratio] 0.0 % [facility] Platelets (Bld) [#/Vol] 189 10*3/uL [facility] RBC (Bld) [#/Vol] 4.64 10*6/uL [facility] WBC (Bld) [#/Vol] 9.3 10*3/uL [facility] Basophils (Bld) [#/Vol] 0.04 x10*3/uL Normal 0.00-0.10 [facility] Comment on above: Performed By: #### 5 7021-8 #### CHRISTIE WATSON ([id number]) [facility] ([facility]) [address] [place] [address] 78050 Basophils/100 WBC (Bld) 0.4 % Normal 0.0-2.0 [facility] Comment on above: Performed By: #### 5 7021-8 #### CHRISTIE WATSON ([id number]) [facility] ([facility]) [address] [place] [address] 40920 Eosinophils (Bld) [#/Vol] 0.23 x10*3/uL Normal 0.00-0.70 [facility] Comment on above: Performed By: #### 5 7021-8 #### CHRISTIE WATSON ([id number]) [facility] ([facility]) [address] [place] [address] 16238 Eosinophils/100 WBC (Bld) 2.5 % Normal 0.0-6.0 [facility] Comment on above: Performed By: #### 5 7021-8 #### CHRISTIE WATSON ([id number]) [facility] ([facility]) [address] [place] [address] 15490 Erythrocyte distribution width (RBC) [Ratio] 14.0 % Normal 11.5-14.5 [facility] Comment on above: Performed By: #### 5 7021-8 #### CHRISTIE WATSON ([id number]) [facility] ([facility]) [address] [place] [address] 40656 Hematocrit (Bld) [Volume fraction] 43.6 % Normal 41.0-52.0 [facility] Comment on above: Performed By: #### 5 7021-8 #### CHRISTIE WATSON ([id number]) [facility] ([facility]) [address] [place] [address] 27716 Hemoglobin (Bld) [Mass/Vol] 14.7 g/dL Normal 13.5-17.5 [facility] Comment on above: Performed By: #### 5 7021-8 #### CHRISTIE WATSON ([id number]) [facility] ([facility]) [address] [place] [address] Immature granulocytes (Bld) [#/Vol] 0.02 x10*3/uL Normal 0.00-0.70 [facility] Comment on above: Performed By: #### 5 7021-8 #### CHRISTIE WATSON ([id number]) [facility] ([facility]) [address] [place], [place] [address] Immature granulocytes/100 WBC (Bld) 0.2 % Normal 0.0-0.9 [facility] Comment on above: Result Comment: Reshma ture Granulocyte Count (IG) includes promyelocytes, myelocytes and metamyelocytes but does not include bands. Percent differential counts (%) should be interpreted in the context of the absolute cell counts (cells/UL). Performed By: #### 5 7021-8 #### CHRISTIE WATSON ([id number]) [facility] ([facility]) [address] [place] [address] 97629 Lymphocytes (Bld) [#/Vol] 2.64 x10*3/uL Normal 1.20-4.80 [facility] Comment on above: Performed By: #### 5 7021-8 #### CHRISTIE WATSON ([id number]) [facility] ([facility]) [address] [place] [address] 35521 Lymphocytes/100 WBC (Bld) 28.4 % Normal 13.0-44.0 [facility] Comment on above: Performed By: #### 5 7021-8 #### CHRISTIE WATSON ([id number]) [facility] ([facility]) [address] [place] [address] 99072 MCH (RBC) [Entitic mass] 31.7 pg Normal 26.0-34.0 [facility] Comment on above: Performed By: #### 5 7021-8 #### CHRISTIE WATSON ([id number]) [facility] ([facility]) [address] [place] [address] 75392 MCHC (RBC) [Mass/Vol] 33.7 g/dL Normal 32.0-36.0 [facility] Comment on above: Performed By: #### 5 7021-8 #### CHRISTIE WATSON ([id number]) [facility] ([facility]) [address] [place] [address] 47977 MCV (RBC) [Entitic vol] 94 fL Normal 80-100 [facility] Comment on above: Performed By: #### 5 7021-8 #### CHRISTIE WATSON ([id number]) [facility] ([facility]) [address] [place] [address] 60576 Monocytes (Bld) [#/Vol] 0.87 x10*3/uL Normal 0.10-1.00 [facility] Comment on above: Performed By: #### 5 7021-8 #### CHRISTIE WATSON ([id number]) [facility] ([facility]) [address] [place] [address] 07513 Monocytes/100 WBC (Bld) 9.4 % Normal 2.0-10.0 [facility] Comment on above: Performed By: #### 5 7021-8 #### CHRISTIE WATSON ([id number]) [facility] ([facility]) [address] [place] [address] 33035 Neutrophils (Bld) [#/Vol] 5.50 x10*3/uL Normal 1.20-7.70 [facility] Comment on above: Result Comment: Perc ent differential counts (%) should be interpreted in the context of the absolute cell counts (cells/uL). Performed By: #### 5 7021-8 #### CHRISTIE WATSON ([id number]) [facility] ([facility]) [address] [place] [address] 87717 Neutrophils/100 WBC (Bld) 59.1 % Normal 40.0-80.0 [facility] Comment on above: Performed By: #### 5 7021-8 #### CHRISTIE WATSON ([id number]) [facility] ([facility]) [address] [place] [address] 97538 Nucleated RBC/100 WBC (Bld) [Ratio] 0.0 /100 WBCs Normal 0.0-0.0 [facility] Comment on above: Performed By: #### 5 7021-8 #### CHRISTIE WATSON ([id number]) [facility] ([facility]) [address] [place] [address] 07120 Platelets (Bld) [#/Vol] 189 x10*3/uL Normal 150-450 [facility] Comment on above: Performed By: #### 5 7021-8 #### CHRISTIE WATSON ([id number]) [facility] ([facility]) [address] [place] [address] 94255 RBC (Bld) [#/Vol] 4.64 x10*6/uL Normal 4.50-5.90 [facility] Comment on above: Performed By: #### 5 7021-8 #### CHRISTIE WATSON ([id number]) [facility] ([facility]) [address] [place] [address] 39692 WBC (Bld) [#/Vol] 9.3 x10*3/uL Normal 4.4-11.3 [facility] Comment on above: Performed By: #### 5 7021-8 #### CHRISTIE WATSON ([id number]) [facility] ([facility]) [address] [place] [address] ABDOMEN PELVIS WO IV CONT Maricel 03-25-2025 CT ABDOMEN PELVIS WO IV CONTRAST Interpreted By: Ruano, Maykel, STUDY: CT ABDOMEN PELVIS WO IV CONTRAST; 03/25/2025 10:02 pm INDICATION: Signs/Symptoms:Hematuria history of kidney stones. COMPARISON: CT abdomen pelvis 08/10/2017. ACCESSION NUMBER(S): [id number] ORDERING CLINICIAN: ZAK ALVAREZ TECHNIQUE: CT of [...] Maykel Ruano 03/25/2025 10:47 PM Dictation workstation: [id number] [facility] CT Abdomen WO contraston 1. No acute abnormal ity in the abdomen/pelvis. Multiple bilateral intrarenal calculi without hydronephrosis or obstructive nephrolithiasis. Bilateral renal cysts. Prostatomegaly, clinical correlation for prostate etiology of hematuria recommended. 2. Cholelithiasis without cholecystitis. Hepatomegaly. Signed by: Maykel Ruano 03/25/2025 10:47 PM Dictation workstation: [id number] Interpreted By: Maykel Handley, STUDY: CT ABDOMEN PELVIS WO IV CONTRAST; 03/25/2025 10:02 pm INDICATION: Signs/Symptoms:Hematuria history of kidney stones. COMPARISON: CT abdomen pelvis 08/10/2017. ACCESSION NUMBER(S): [id number] ORDERING CLINICIAN: ZAK ALVAREZ TECHNIQUE: CT of [...] COMPARISON: CT abdomen pelvis 08/10/2017. ACCESSION NUMBER(S): [id number] ORDERING CLINICIAN: ZAK ALVAREZ TECHNIQUE: CT of [...] Maykel Ruano 03/25/2025 10:47 PM Dictation workstation: [id number] [facility] Work Phone: Radiology Study observation (narrative) [facility] Work Phone: CT Abdomen WO contrastOrdere d By: Maykel Ruano on 03-25-2025 [facility] Work Phone: No Panel Informationon 03-25 Interpretation and review of laboratory results Abnormal [facility] Urinalysis complete W Reflex Culture panel (U)on 03-25-2025 Appearance (U) Turbid Abnormal Clear [facility] Bilirubin (U) [Mass/Vol] Negative NEGATIVE mg/dL [facility] Color (U) Light-Brown Abnormal Light-Yellow , Yellow, Dark-Yellow [facility] Glucose Auto test strip (U) [Mass/Vol] Normal Normal mg/dL [facility] Ketones (U) [Mass/Vol] Negative NEGATIVE mg/dL [facility] Leukocyte esterase Auto test strip Ql (U) 250 Javad/uL Abnormal NEGATIVE [facility] Nitrite Auto test strip Ql (U) Negative NEGATIVE [facility] pH (U) 6.5 [pH] 5.0, 5.5, 6.0, 6.5, 7.0, 7.5, 8.0 [facility] Protein (U) [Mass/Vol] 30 (1+) Abnormal NEGATIVE, 10 (TRACE), 20 (TRACE) mg/dL [facility] RBC (U) [#/Vol] OVER (3+) Abnormal NEGATIVE mg/dL [facility] Specific gravity (U) [Rel density] 1.012 1.005 - 1.035 [facility] Urobilinogen (U) [Mass/Vol] Normal Normal mg/dL [facility] OVER is reported whe n the result is greater than the clinically reportable range. [facility] Appearance (U) Turbid Normal Clear [facility] Comment on above: Order Comment: OVER is reported when the result is greater than the clinically reportable range. Performed By: #### 5 8077-9 #### CHRISTIE WATSON ([id number]) [facility] ([facility]) [address] [place] [address] Bilirubin (U) [Mass/Vol] Negative Normal NEGATIVE [facility] Comment on above: Order Comment: OVER is reported when the result is greater than the clinically reportable range. Performed By: #### 5 8077-9 #### CHRISTIE WATSON ([id number]) [facility] ([facility]) [address] [place] [address] Color (U) Light-Brown Normal Light-Yellow , Yellow, Dark-Yellow [facility] Comment on above: Order Comment: OVER is reported when the result is greater than the clinically reportable range. Performed By: #### 5 8077-9 #### CHRISTIE WATSON ([id number]) [facility] ([facility]) [address] [place] [address] Glucose Auto test strip (U) [Mass/Vol] Normal Normal Normal [facility] Comment on above: Order Comment: OVER is reported when the result is greater than the clinically reportable range. Performed By: #### 5 8077-9 #### CHRISTIE WATSON ([id number]) [facility] ([facility]) [address] [place] [address] Ketones (U) [Mass/Vol] Negative Normal NEGATIVE [facility] Comment on above: Order Comment: OVER is reported when the result is greater than the clinically reportable range. Performed By: #### 5 8077-9 #### CHRISTIE WATSON ([id number]) [facility] ([facility]) [address] [place], [place] [address] Leukocyte esterase Auto test strip Ql (U) 250 Javad/uL Abnormal NEGATIVE [facility] Comment on above: Order Comment: OVER is reported when the result is greater than the clinically reportable range. Performed By: #### 5 8077-9 #### CHRISTIE WATSON ([id number]) [facility] ([facility]) [address] [place] [address] Nitrite Auto test strip Ql (U) Negative Normal NEGATIVE [facility] Comment on above: Order Comment: OVER is reported when the result is greater than the clinically reportable range. Performed By: #### 5 8077-9 #### CHRISTIE WATSON ([id number]) [facility] ([facility]) [address] [place] [address] 88204 pH (U) 6.5 [pH] Normal 5.0, 5.5, 6.0, 6.5, 7.0, 7.5, 8.0 [facility] Comment on above: Order Comment: OVER is reported when the result is greater than the clinically reportable range. Performed By: #### 5 8077-9 #### CHRISTIE WATSON ([id number]) [facility] ([facility]) [address] [place] [address] 22542 Protein (U) [Mass/Vol] 30 (1+) Abnormal NEGATIVE, 10 (TRACE), 20 (TRACE) [facility] Comment on above: Order Comment: OVER is reported when the result is greater than the clinically reportable range. Performed By: #### 5 8077-9 #### CHRISTIE WATSON ([id number]) [facility] ([facility]) [address] [place] [address] 45714 RBC (U) [#/Vol] OVER (3+) Abnormal NEGATIVE [facility] Comment on above: Order Comment: OVER is reported when the result is greater than the clinically reportable range. Performed By: #### 5 8077-9 #### CHRISTIE WATSON ([id number]) [facility] ([facility]) [address] [place] [address] 59788 Specific gravity (U) [Rel density] 1.012 Normal 1.005-1.035 [facility] Comment on above: Order Comment: OVER is reported when the result is greater than the clinically reportable range. Performed By: #### 5 8077-9 #### CHRISTIE WATSON ([id number]) [facility] ([facility]) [address] [place] [address] 75438 Urobilinogen (U) [Mass/Vol] Normal Normal Normal [facility] Comment on above: Order Comment: OVER is reported when the result is greater than the clinically reportable range. Performed By: #### 5 8077-9 #### CHRISTIE WATSON ([id number]) [facility] ([facility]) [address] [place] [address] Urinalysis microscopic panel Auto Ql (U)on 03-25-2025 Bacteria Auto (Urine sed) [#/Area] 1+ Abnormal NONE SEEN /HPF [facility] Mucus Auto (Urine sed) [#/Area] FEW Reference range not established. /LPF [facility] RBC Auto (Urine sed) [#/Area] >20 Abnormal NONE, 1-2, 3-5 /HPF [facility] WBC Auto (Urine sed) [#/Area] 21-50 Abnormal 1-5, NONE /HPF [facility] Bacteria Auto (Urine sed) [#/Area] 1+ /HPF Abnormal NONE SEEN [facility] Comment on above: Performed By: #### 5 3315-8 #### CHRISTIE WATSON ([id number]) [facility] ([facility]) [address] [place] [address] Mucus Auto (Urine sed) [#/Area] FEW Normal Reference range not established. [facility] Comment on above: Performed By: #### 5 3315-8 #### CHRISTIE WATSNO ([id number]) [facility] ([facility]) [address] [place] [address] RBC Auto (Urine sed) [#/Area] >20 Abnormal NONE, 1-2, 3-5 [facility] Comment on above: Performed By: #### 5 3315-8 #### CHRISTIE WATSON ([id number]) [facility] ([facility]) [address] [place] [address] WBC Auto (Urine sed) [#/Area] 21-50 Abnormal 1-5, NONE [facility] Comment on above: Performed By: #### 5 3315-8 #### CHRISTIE WATSON ([id number]) [facility] ([facility]) [address] [place] [address] XR ABDOMEN 1 VIEWon 01-15-20 25 XR ABDOMEN 1 VIEW Interpreted By: Estela Herrera, STUDY: XR ABDOMEN 1 VIEW; 09/13/2024 10:05 am. 2 views. INDICATION: Signs/Symptoms:KIDNEY STONES. COMPARISON: 02/23/2024 ACCESSION NUMBER(S): [id number] ORDERING CLINICIAN: ISABELA BAZAN FINDINGS: Bowel gas [...] Estela Elkins 09/15/2024 8:10 AM Dictation workstation: [id number] [facility] Hemoglobin A1Con 06-27-2024 Glucose [Mass/Vol] 103 mg/dL Normal [facility] Comment on above: Result Comment: The ADA and AACC recommend providing the estimated average glucose result to permit better patient understanding of their HBA1c result. Performed at [facility], [address] [place], [place] [id number] . HbA1c (Bld) [Mass fraction] 5.2 % Normal 4.0-6.0 [facility] Comprehensive Metabolic Pane l Fastingon 06-26-2024 Anion gap [Moles/Vol] 8 mmol/L Low 9-15 [facility] Comment on above: Performed By: #### C MPF #### [facility] [address] [place] [address] Albumin [Mass/Vol] 4.1 g/dL Normal 3.5-4.6 [facility] Comment on above: Performed By: #### C MPF #### [facility] [address] [place] [address] ALP [Catalytic activity/Vol] 124 U/L Critically high 35-104 [facility] Comment on above: Performed By: #### C MPF #### [facility] [address] [place] [address] ALT [Catalytic activity/Vol] 8 U/L Normal 0-41 [facility] Comment on above: Performed By: #### C MPF #### [facility] [address] [place] [address] AST [Catalytic activity/Vol] 19 U/L Normal 0-40 [facility] Comment on above: Performed By: #### C MPF #### [facility] [address] [place] [address] Bilirubin [Mass/Vol] 1.2 mg/dL Critically high 0.2-0.7 [facility] Comment on above: Performed By: #### C MPF #### [facility] [address] [place] [address] Calcium [Mass/Vol] 9.2 mg/dL Normal 8.5-9.9 [facility] Comment on above: Performed By: #### C MPF #### [facility] [address] [place] [address] Chloride [Moles/Vol] 107 mmol/L Normal 95-107 [facility] Comment on above: Performed By: #### C MPF #### [facility] [address] [place] [address] CO2 [Moles/Vol] 26 mmol/L Normal 20-31 [facility] Comment on above: Performed By: #### C MPF #### [facility] [address] [place] [address] Creatinine [Mass/Vol] 1.05 mg/dL Normal 0.70-1.20 [facility] Comment on above: Performed By: #### C MPF #### [facility] [address] [place] [address] GFR 77.5 Normal >60 [facility] Comment on above: Result Comment: Yoselin [...] secretion. Performed By: #### C MPF #### [facility] [address] [place] [address] Globulin (S) [Mass/Vol] 2.3 g/dL Normal 2.3-3.5 [facility] Comment on above: Performed By: #### C MPF #### [facility] [address] [place] [address] Glucose [Mass/Vol] 97 mg/dL Normal 70-99 [facility] Comment on above: Performed By: #### C MPF #### [facility] [address] [place] [address] Potassium [Moles/Vol] 4.5 mmol/L Normal 3.4-4.9 [facility] Comment on above: Performed By: #### C MPF #### [facility] [address] [place] [address] Protein [Mass/Vol] 6.4 g/dL Normal 6.3-8.0 [facility] [facility] Comment on above: Performed By: #### C MPF #### [facility] [address] [place] [address] Sodium [Moles/Vol] 141 mmol/L Normal 135-144 [facility] Comment on above: Performed By: #### C MPF #### [facility] [address] [place] [address] Urea nitrogen [Mass/Vol] 12 mg/dL Normal 8-23 [facility] Comment on above: Performed By: #### C MPF #### [facility] [address] [place] [address] Comprehensive metabolic 2000 panelon 06-26-2024 Albumin [Mass/Vol] 4.1 g/dL 3.5 - 4.6 g/dL [facility] ALP [Catalytic activity/Vol] 124 U/L High 35 - 104 U/L [facility] ALT [Catalytic activity/Vol] 8 U/L 0 - 41 U/L [facility] AST [Catalytic activity/Vol] 19 U/L 0 - 40 U/L [facility] Bilirubin [Mass/Vol] 1.2 mg/dL High 0.2 - 0 .7 mg/dL [facility] Calcium [Mass/Vol] 9.2 mg/dL 8.5 - 9.9 mg/dL [facility] Chloride [Moles/Vol] 107 mmol/L [facility] CO2 [Moles/Vol] 26 mmol/L [facility] Creatinine [Mass/Vol] 1.05 mg/dL 0.70 - 1.20 mg/dL [facility] GFR/1.73 sq M.predicted among non-blacks MDRD (S/P/Bld) [Vol rate/Area] 77.5 mL/min/{1.73_m2} 60 - PINF [facility] Comment on above: Pediatric calculator link https://www.kidney.org/professionals/kdoqi/gfr_calculatorped [...] [Mass/Vol] 2.3 g/dL 2.3 - 3.5 g/dL [facility] Glucose [Mass/Vol] 97 mg/dL 70 - 99 mg/dL [facility] Potassium [Moles/Vol] 4.5 mmol/L [facility] Protein [Mass/Vol] 6.4 g/dL 6.3 - 8.0 g/dL [facility] Sodium [Moles/Vol] 141 mmol/L [facility] Urea nitrogen [Mass/Vol] 12 mg/dL 8 - 23 mg/dL [facility] Lipid Panel Fastingon 2023 Cholesterol [Mass/Vol] 113 mg/dL Normal 0-199 [facility] Comment on above: ATP III Cholesterol classification is Desirable. Result Comment: ATP III Cholesterol classification is Desirable. Performed By: #### L IPDF #### [facility] [address] [facility] [address] HDL Cholesterol Fasting 33 mg/dL Low 40-59 [facility] Comment on above: Result Comment: ATP [...] CHD Performed By: #### L IPDF #### [facility] [address] [place] [address] LDL Cholesterol (Calculated) Fasting 67 mg/dL Normal 0-129 [facility] Comment on above: Result Comment: ATP III LDL Classification is Optimal. Performed By: #### L IPDF #### [facility] [address] [place] [address] Triglycerides Fasting 65 mg/dL Normal 0-150 [facility] Comment on above: Result Comment: ATP III Triglycerides Classification is Normal. Performed By: #### L IPDF #### [facility] [address] [place] [address] Lipid, Fastingon 06-26-2024 Cholesterol in HDL [Mass/Vol] 33 mg/dL Low 40 - 59 mg/dL [facility] Comment on above: ATP III HDL [...] [Mass/Vol] 67 mg/dL 0 - 129 mg/dL [facility] Comment on above: ATP III LDL Classifi cation is Optimal. Triglyceride, Fasting 65 mg/dL 0 - 150 mg/dL [facility] Comment on above: ATP III Triglyceride s Classification is Normal. No Panel Informationon 06-26 Interpretation and review of laboratory results Abnormal [facility] [employer] [facility] XR Abdomen Single viewon 1. Multiple calcific ations in the right kidney in the lower and midportions and 1 calcification in the lower pole of the left kidney. Findings unchanged from 10/07/2023. MACRO: None Signed by: Sundar Jacobsen 02/23/2024 3:35 PM Dictation workstation: [id number] [place] Interpreted By: Sundar Smith, STUDY: XR ABDOMEN 1 VIEW; 02/23/2024 10:34 am INDICATION: Signs/Symptoms:KIDNEY STONES. COMPARISON: 10/07/2023 ACCESSION NUMBER(S): [id number] ORDERING CLINICIAN: ISABELA BAZAN FINDINGS: Nonobstructive bowel [...] INDICATION: Signs/Symptoms:KIDNEY STONES. COMPARISON: 10/07/2023 ACCESSION NUMBER(S): [id number] ORDERING CLINICIAN: ISABELA BAZAN FINDINGS: Nonobstructive bowel [...] Sundar Jacobsen 02/23/2024 3:35 PM Dictation workstation: [id number] [facility] Work Phone: [phone] Radiology Study observation (narrative) [facility] Work Phone: [phone] XR Abdomen Single viewOrdere d By: Sudnar Jacobsen on 02-23-2024 [facility] Work Phone: POCT UA Automated manually r esultedon 12-16-2023 Appearance (U) Clear Clear [facility] Work Phone: [phone] Glucose Test strip (U) [Mass/Vol] Negative NEGATIVE mg/dl [facility] Work Phone: [phone] Hemoglobin Ql (U) SMALL (1+) Abnormal NEGATIVE [facility] Work Phone: [phone] Interpretation and review of laboratory results Abnormal [facility] Work Phone: [phone] Leukocyte esterase Test strip Ql (U) TRACE Abnormal NEGATIVE [facility] Work Phone: [phone] Nitrite Ql (U) Negative NEGATIVE [facility] Work Phone: [phone] pH (U) 7.0 [pH] No Reference Range Established [facility] Work Phone: [phone] POC Bilirubin, Urine Negative NEGATIVE [facility] Work Phone: [phone] POC Color, Urine Yellow Straw, Yellow, Light-Yellow [facility] Work Phone: [phone] POC Ketones, Urine Negative NEGATIVE mg/dl [facility] Work Phone: [phone] POC Protein, Urine Negative NEGATIVE, 30 (1+) mg/dl [facility] Work Phone: POC Specific [place], Urine 1.020 1.005 - 1.035 [facility] Work Phone: POC Urobilinogen, Urine 0.2 0.2, 1.0 EU/DL [facility] Work Phone: [facility] Work Phone: No Panel Informationon 11-08 Interpretation and review of laboratory results Abnormal [facility] Urinalysis complete W Reflex Culture panel (U)on 11-09-2023 Appearance (U) Hazy Abnormal Clear [facility] Bilirubin (U) [Mass/Vol] Negative NEGATIVE [facility] Color (U) Yellow Straw, Yellow [facility] Glucose Auto test strip (U) [Mass/Vol] Negative NEGATIVE mg/dL [facility] Ketones (U) [Mass/Vol] Negative NEGATIVE mg/dL [facility] Leukocyte esterase Auto test strip Ql (U) MODERATE (2+) Abnormal NEGATIVE [facility] Nitrite Auto test strip Ql (U) Negative NEGATIVE [facility] pH (U) 6.0 [pH] 5.0, 5.5, 6.0, 6.5, 7.0, 7.5, 8.0 [facility] Protein (U) [Mass/Vol] 30 (1+) Abnormal NEGATIVE mg/dL [facility] RBC (U) [#/Vol] Negative NEGATIVE [facility] Specific gravity (U) [Rel density] 1.015 1.005 - 1.035 [facility] Urobilinogen (U) [Mass/Vol] mg/dL NINF - 2.0 mg/dL [facility] Urinalysis microscopic panel Auto Ql (U)on 11-09-2023 Bacteria Auto (Urine sed) [#/Area] 3+ Abnormal NONE SEEN /HPF [facility] Leukocyte clumps Auto (Urine sed) [#/Area] OCCASIONAL Reference range not established. /HPF [facility] Mucus Auto (Urine sed) [#/Area] 4+ Reference range not established. /LPF [facility] RBC Auto (Urine sed) [#/Area] 11-20 Abnormal NONE, 1-2, 3-5 /HPF [facility] WBC Auto (Urine sed) [#/Area] >50 Abnormal 1-5, NONE /HPF [facility] Bacteria identifiedon 2023 Bacteria identified Cx Nom (U) Test: Urine Culture Specimen Source: Clean Catch/Voided Specimen Type: Urine Specimen Date: 11/08/2023 12:19 PM Result Date: 11/10/2023 7:53 AM Result Status: Final result Abnormal: No Resulting Lab: [facility] [id number] [place], [place] [id number] CULTURE No significant growth Normal [facility] Comment on above: Performed By: #### 6 30-4 #### SULLY Schmidt ([id number]) [facility] ([facility]) [address] [place] [address] POCT UA Automated manually r esultedon 10-07-2023 Appearance (U) Clear Clear [facility] Work Phone: [phone] Glucose Test strip (U) [Mass/Vol] Negative NEGATIVE mg/dl [facility] Work Phone: [phone] Hemoglobin Ql (U) MODERATE (2+) Abnormal NEGATIVE [facility] Work Phone: [phone] Interpretation and review of laboratory results Abnormal [facility] Work Phone: [phone] Leukocyte esterase Test strip Ql (U) TRACE Abnormal NEGATIVE [facility] Work Phone: [phone] Nitrite Ql (U) Negative NEGATIVE [facility] Work Phone: [phone] pH (U) 7.0 [pH] No Reference Range Established [facility] Work Phone: [phone] POC Bilirubin, Urine Negative NEGATIVE [facility] Work Phone: [phone] POC Color, Urine Yellow Straw, Yellow, Light-Yellow [facility] Work Phone: POC Ketones, Urine Negative NEGATIVE mg/dl [facility] Work Phone: POC Protein, Urine Negative NEGATIVE, 30 (1+) mg/dl [facility] Work Phone: POC Specific [place], Urine 1.020 1.005 - 1.035 [facility] Work Phone: POC Urobilinogen, Urine 0.2 0.2, 1.0 EU/DL [facility] Work Phone: [facility] Work Phone: Prostate specific Agon 10-07 Prostate specific Ag [Mass/Vol] 1.98 ng/mL Normal <=4.00 [facility] Comment on above: Order Comment: The DA requires that the method used for PSA assay be reported to the physician. Values obtained with different assay methods must not be used interchangeably. This test was performed at [facility] using the Lionical PSA assay is a two-site immunoenzymatic sandwich assay. The assay is approved for measurement of prostate-specific antigen (PSA)in serum and may be used in conjunction with a digital rectal examination in men 50 years and older as an aid in detection of prostate cancer. 0-Gxsja-uuiqjsppg inhibitors (e.g. Proscar, Finasteride, Avodart, Dutasteride and Lianne) for the treatment of BPH have been shown to lower PSA levels by an average of 50% after 6 months of treatment. Performed By: #### 2 857-1 #### SORIANO SHIRLEY ([id number]) [facility] ([facility]) [address] [place] [address] Gammaglutamyl Transon 2023 Amylase [Catalytic activity/Vol] 13 U/L Normal 8-61 [facility] Comment on above: Result Comment: Perf ormed at [facility], [address] [place] [id number] . Surgical Specimenon 08-17-20 Surgical Specimen [facility] [place] [address] FINAL SURGICAL PATHOLOGY REPORT Patient Name: RAMON COSTA Accession No: [id number] Age Sex: 1955 Location: [facility]ORPOO NON Account No: [id number] Collected: 08/17/2023 [facility] Rec No: [id number] Received: 08/18/2023 Attend Phys: YASMANY SMITH Completed: [...] Submitted together in one cassette. PSW/BEH CPT: 78974 X5 [id number] X2 TIMO PARK M.D. 08/19/2023 Electronically signed out by Page 1 of 1 Invalid Interpretation Code [facility] Comment on above: Performed By: #### S UR #### [facility] [address] [place] [id number] Comprehensive Metabolic Pane l Fastingon 06-11-2023 Albumin [Mass/Vol] 4.2 g/dL Normal 3.5-4.6 [facility] Comment on above: Performed By: #### C MPF #### [facility] [address] [place] [address] ALP [Catalytic activity/Vol] 139 U/L Critically high 35-104 [facility] Comment on above: Performed By: #### C MPF #### [facility] [address] [place] [address] ALT [Catalytic activity/Vol] 14 U/L Normal 0-41 [facility] Comment on above: Performed By: #### C MPF #### [facility] [address] [place] [address] Anion gap [Moles/Vol] 11 mmol/L Normal 9-15 [facility] Comment on above: Performed By: #### C MPF #### [facility] [address] [place] [address] AST [Catalytic activity/Vol] 19 U/L Normal 0-40 [facility] Comment on above: Performed By: #### C MPF #### [facility] [address] [place] [address] Bilirubin [Mass/Vol] 1.0 mg/dL Critically high 0.2-0.7 [facility] Comment on above: Performed By: #### C MPF #### [facility] [address] [place] [address] Calcium [Mass/Vol] 9.1 mg/dL Normal 8.5-9.9 [facility] Comment on above: Performed By: #### C MPF #### [facility] [address] [place] [address] Chloride [Moles/Vol] 106 mmol/L Normal 95-107 [facility] Comment on above: Performed By: #### C MPF #### [facility] [address] [place] [address] CO2 [Moles/Vol] 25 mmol/L Normal 20-31 [facility] Comment on above: Performed By: #### C MPF #### [facility] [address] [place] [address] Creatinine [Mass/Vol] 0.99 mg/dL Normal 0.70-1.20 [facility] Comment on above: Performed By: #### C MPF #### [facility] [address] [place] [address] GFR >60.0 Normal >60 [facility] Comment on above: Result Comment: Yoselin [...] secretion. Performed By: #### C MPF #### [facility] [address] [place] [address] Globulin (S) [Mass/Vol] 2.3 g/dL Normal 2.3-3.5 [facility] Comment on above: Performed By: #### C MPF #### [facility] [address] [place] [address] Glucose [Mass/Vol] 103 mg/dL Critically high 70-99 [facility] Comment on above: Performed By: #### C MPF #### [facility] [address] [place] [address] Potassium [Moles/Vol] 4.4 mmol/L Normal 3.4-4.9 [facility] Comment on above: Performed By: #### C MPF #### [facility] [address] [place] [address] Protein [Mass/Vol] 6.5 g/dL Normal 6.3-8.0 [facility] Comment on above: Performed By: #### C MPF #### [facility] [address] [place] [address] Sodium [Moles/Vol] 142 mmol/L Normal 135-144 [facility] Comment on above: Performed By: #### C MPF #### [facility] [address] [place] [address] Urea nitrogen [Mass/Vol] 11 mg/dL Normal 8-23 [facility] Comment on above: Performed By: #### C MPF #### [facility] [address] [place] [address] Lipid Panel Fastingon 2022 Cholesterol [Mass/Vol] 112 mg/dL Normal 0-199 [facility] Comment on above: Result Comment: ATP III Cholesterol classification is Desirable. Performed By: #### L IPDF #### [facility] [address] [place] [address] HDL Cholesterol Fasting 32 mg/dL Low 40-59 [facility] Comment on above: Result Comment: ATP [...] CHD Performed By: #### L IPDF #### [facility] [address] [place] [address] LDL Cholesterol (Calculated) Fasting 67 mg/dL Normal 0-129 [facility] Comment on above: Result Comment: ATP III LDL Classification is Optimal. Performed By: #### L IPDF #### [facility] [address] [place] [address] Triglycerides Fasting 63 mg/dL Normal 0-150 [facility] Comment on above: Result Comment: ATP III Triglycerides Classification is Normal. Performed By: #### L IPDF #### [facility] [address] [place] [address] Prostate Specific Ag Screeno n 06-11-2023 Prostate Specific Ag Screen 1.58 ng/mL Normal 0.00-4.00 [facility] Comment on above: Performed By: #### P SA #### [facility] [address] [place] [address] Comprehensive Metabolic Pane l, Fastingon 06-15-2022 Albumin [Mass/Vol] 4 g/dL 3.5 - 4.6 g/dL [facility] ALP (Bld) [Catalytic activity/Vol] 137 U/L High 35 - 104 U/L [facility] ALT [Catalytic activity/Vol] 17 U/L 0 - 41 U/L [facility] Anion gap [Moles/Vol] 7 mmol/L Low [facility] AST [Catalytic activity/Vol] 29 U/L 0 - 40 U/L [facility] Bilirubin [Mass/Vol] 1.0 mg/dL High 0.2 - 0 .7 mg/dL [facility] Calcium [Mass/Vol] 9.3 mg/dL 8.5 - 9.9 mg/dL [facility] Chloride [Moles/Vol] 104 mmol/L [facility] CO2 [Moles/Vol] 27 mmol/L [facility] Creatinine [Mass/Vol] 0.98 mg/dL 0.7 - 1.2 mg/dL [facility] GFR/1.73 sq M.predicted MDRD (S/P/Bld) [Vol rate/Area] 60 - PINF [facility] Comment on above: Pediatric calculator link https://www.kidney.org/professionals/kdoqi/gfr_calculatorped [...] [Mass/Vol] 2.6 g/dL 2.3 - 3.5 g/dL [facility] Glucose [Mass/Vol] 92 mg/dL 70 - 99 mg/dL [facility] Potassium [Moles/Vol] 4.9 mmol/L [facility] Protein [Mass/Vol] 6.6 g/dL 6.3 - 8 g/dL [facility] Sodium [Moles/Vol] 138 mmol/L [facility] Urea nitrogen (BldV) [Mass/Vol] 12 mg/dL 8 - 23 mg/dL [facility] Lipid, Fastingon 06-15-2022 Cholesterol [Mass/Vol] 136 mg/dL 0 - 199 mg/dL [facility] Comment on above: ATP III Cholesterol classification is Desirable. Cholesterol in HDL [Mass/Vol] 30 mg/dL Low 40 - 59 mg/dL [facility] Comment on above: ATP III HDL Cholestr [...] [Mass/Vol] 86 mg/dL 0 - 129 mg/dL [facility] Comment on above: ATP III LDL Classifi cation is Optimal. Triglyceride, Fasting 98 mg/dL 0 - 150 mg/dL [facility] Comment on above: ATP III Triglyceride s Classification is Normal. No Panel Informationon 06-15 Interpretation and review of laboratory results Abnormal [facility] CBCon 04-02-2022 Hematocrit (Bld) [Volume fraction] 45.9 % 42 - 52 % [facility] Hemoglobin (Bld) [Mass/Vol] 15.0 g/dL 14 - 18 g/dL [facility] Interpretation and review of laboratory results Abnormal [facility] MCH (RBC) [Entitic mass] 31.5 pg High 27 - 31.3 pg [facility] MCHC (RBC) [Mass/Vol] 32.8 % Low 33 - 37 % [facility] MCV (RBC) [Entitic vol] 96.0 fL 80 - 100 fL [facility] Platelet distribution width (Bld) [Ratio] 15.1 % High 11.5 - 14.5 % [facility] Platelets (Bld) [#/Vol] 207 10*3/uL 130 - 400 K/uL [facility] RBC (Bld) [#/Vol] 4.78 10*6/uL [facility] WBC (Bld) [#/Vol] 7.0 10*3/uL 4.8 - 10.8 K/uL [facility] [employer] XR CHEST (2 VW)on 04-02-2022 NO ACUTE CARDIOPULMO NARY DISEASE. [facility] RAD[facility] Described EXAMINATIO N: XR CHEST (2 VW) CLINICAL HISTORY: SHORTNESS OF BREATH COMPARISONS: CT CHEST, JUNE 24, 2021. FINDINGS: Osseous structures are intact. Cardiopericardial silhouette is normal. Pulmonary vasculature is normal. Lungs are clear. [facility] Signer, MD Darci - 04/02/2022 Described EXAMINATION: XR CHEST (2 VW) CLINICAL HISTORY: SHORTNESS OF BREATH COMPARISONS: CT CHEST, JUNE 24, 2021. FINDINGS: Osseous structures are intact. Cardiopericardial silhouette is normal. Pulmonary vasculature is normal. Lungs are clear. IMPRESSION: NO ACUTE CARDIOPULMONARY DISEASE. [facility] Work Phone: Radiology Study observation (narrative) [facility] [employer] Phone: XR CHEST (2 VW)Ordered By: Binh Rosales on 04-02-2022 [facility] [employer] Work Phone: TSH with ReflexOrdered By: Liseth Rey on 07-03-2021 TSH Qn 1.18 m[IU]/L [employer] Phone: [employer] Phone: CBCOrdered By: Jarad Rey on 06-12-2021 Hematocrit (Bld) [Volume fraction] 45.9 % 42.0 - 52.0 % [facility] Phone: Hemoglobin.gastroint estinal spec 1 Ql (Stl) 15.5 g/dL 14.0 - 18.0 g/dL [employer] Phone: Interpretation and review of laboratory results Abnormal [employer] Phone: MCH (RBC) [Entitic mass] 31.7 pg High 27.0 - 31.3 pg [employer] Phone: MCHC (RBC) [Mass/Vol] 33.7 % 33.0 - 37.0 % [employer] Phone: MCV (RBC) [Entitic vol] 94.1 fL 80.0 - 100.0 fL [employer] Phone: Platelet distribution width (Bld) [Ratio] 14.6 % High 11.5 - 14.5 % [employer] Phone: Platelets (Bld) [#/Vol] 239 10*3/uL 130 - 400 K/uL [employer] Phone: RBC (Bld) [#/Vol] 4.87 10*6/uL [employer] Phone: WBC (Bld) [#/Vol] 6.9 10*3/uL 4.8 - 10.8 K/uL [employer] Phone: [employer] Phone: Comprehensive Metabolic Pane l, FastingOrdered By: Jarad Rey on 06-12-2021 Albumin [Mass/Vol] 4.1 g/dL 3.5 - 4.6 g/dL [employer] Phone: ALP (Bld) [Catalytic activity/Vol] 120 U/L High 35 - 104 U/L [employer] Phone: ALT [Catalytic activity/Vol] 13 U/L 0 - 41 U/L [employer] Phone: Anion gap [Moles/Vol] 9 mmol/L [employer] Phone: AST [Catalytic activity/Vol] 19 U/L 0 - 40 U/L [employer] Phone: Bilirubin [Mass/Vol] 0.6 mg/dL 0.2 - 0 .7 mg/dL [employer] Phone: Calcium [Mass/Vol] 9.3 mg/dL 8.5 - 9.9 mg/dL [employer] Phone: Chloride [Moles/Vol] 105 mmol/L [employer] Phone: CO2 [Moles/Vol] 24 mmol/L [employer] Phone: Creatinine [Mass/Vol] 0.98 mg/dL 0.70 - 1.20 mg/dL [employer] Phone: Free PSA/Total PSA [Mass fraction] 6.4 g/dL 6.3 - 8.0 g/dL [employer] Phone: GFR >60.0 >60 [employer] Phone: Comment on above: >60 mL/min/1.73m2 EG FR, calc. for ages 18 and older using the MDRD formula (not corrected for weight), is valid for stable renal function. GFR Non- >60.0 >60 [employer] Phone: Comment on above: >60 mL/min/1.73m2 EG FR, calc. for ages 18 and older using the MDRD formula (not corrected for weight), is valid for stable renal function. Globulin (S) [Mass/Vol] 2.3 g/dL 2.3 - 3.5 g/dL [employer] Phone: Glucose [Mass/Vol] 103 mg/dL High 70 - 99 mg/dL [employer] Phone: Potassium [Moles/Vol] 4.7 mmol/L [employer] Phone: Sodium [Moles/Vol] 138 mmol/L [employer] Phone: Urea nitrogen (BldV) [Mass/Vol] 16 mg/dL 8 - 23 mg/dL [employer] Phone: Lipid, FastingOrdered By: Wilmer Rey on 06-12-2021 Cholesterol [Mass/Vol] 127 mg/dL 0 - 199 mg/dL [employer] Phone: Comment on above: ATP III Cholesterol classification is Desirable. Cholesterol in HDL [Mass/Vol] 28 mg/dL Low 40 - 59 mg/dL [employer] Phone: Comment on above: ATP III HDL [...] [Mass/Vol] 83 mg/dL 0 - 129 mg/dL [employer] Phone: Comment on above: ATP III LDL Classifi cation is Optimal. Triglyceride, Fasting 78 mg/dL 0 - 150 mg/dL [employer] Phone: Comment on above: ATP III Triglyceride s Classification is Normal. 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 NORMAL LV EJECTION FRACTION. [employer] Phone: EXAMINATION: PHARMACOLOGICAL SPECT IMAGING CLINICAL HISTORY: [...] tracer uptake throughout the left ventricle segments. Point[employer] Phone: Anselmo, Chpo Incoming R adiant Results From [employer] - 02/27/2021 6:45 PM EDT EXAMINATION: PHARMACOLOGICAL [...] PRIOR MYOCARDIAL INFARCTION. NORMAL LV EJECTION FRACTION. [facility] [employer] Work Phone: [facility] [employer] Work Phone: Comprehensive Metabolic Pane l, Fastingon 06-11-2020 Albumin [Mass/Vol] 4.2 g/dL 3.5 - 4.6 g/dL [place] ALP [Catalytic activity/Vol] 113 U/L High 35 - 104 U/L [place] ALT [Catalytic activity/Vol] 18 U/L 0 - 41 U/L [place] Anion gap [Moles/Vol] 8 mmol/L [place] AST [Catalytic activity/Vol] 32 U/L 0 - 40 U/L [place] Bilirubin Ql (U) 0.8 mg/dL High 0.2 - 0.7 mg/dL [place] Calcium [Mass/Vol] 8.9 mg/dL 8.5 - 9.9 mg/dL [place] Chloride [Moles/Vol] 104 mmol/L [place] CO2 [Moles/Vol] 27 mmol/L [place] Creatinine [Mass/Vol] 1.13 mg/dL 0.7 - 1.2 mg/dL [place] GFR >60.0 >60 [place] Comment on above: >60 mL/min/1.73m2 EG FR, calc. for ages 18 and older using the MDRD formula (not corrected for weight), is valid for stable renal function. GFR Non- >60.0 >60 [place] Comment on above: >60 mL/min/1.73m2 EG FR, calc. for ages 18 and older using the MDRD formula (not corrected for weight), is valid for stable renal function. Globulin (S) [Mass/Vol] 2.1 g/dL Low 2.3 - 3.5 g/dL [place] Glucose [Mass/Vol] 101 mg/dL High 70 - 99 mg/dL [place] Interpretation and review of laboratory results Abnormal [place] Potassium [Moles/Vol] 4.2 mmol/L [place] Protein [Mass/Vol] 6.3 g/dL 6.3 - 8 g/dL [place] Sodium [Moles/Vol] 139 mmol/L [place] Urea nitrogen [Mass/Vol] 18 mg/dL 8 - 23 mg/dL [place] Lipid, Fastingon 06-11-2020 Cholesterol [Mass/Vol] 137 mg/dL 0 - 199 mg/dL [place] Comment on above: ATP III Cholesterol classification is Desirable. Cholesterol in HDL [Mass/Vol] 34 mg/dL Low 40 - 59 mg/dL [place] Comment on above: ATP III HDL [...] [Mass/Vol] 87 mg/dL 0 - 129 mg/dL [place] Comment on above: ATP III LDL Classifi cation is Optimal. Interpretation and review of laboratory results Abnormal [place] Triglyceride, Fasting 79 mg/dL 0 - 150 mg/dL [place] Comment on above: ATP III Triglyceride s Classification is Normal. Comprehensive Metabolic Pane l, Fastingon 05-15-2019 Albumin [Mass/Vol] 4.1 g/dL 3.5 - 4.6 g/dL [place] ALP [Catalytic activity/Vol] 135 U/L High 35 - 104 U/L [place] ALT [Catalytic activity/Vol] 12 U/L 0 - 41 U/L [place] Anion gap [Moles/Vol] 9 mmol/L [place] AST [Catalytic activity/Vol] 25 U/L 0 - 40 U/L [place] Bilirubin Ql (U) 1.2 mg/dL High 0.2 - 0.7 mg/dL [place] Calcium [Mass/Vol] 8.9 mg/dL 8.5 - 9.9 mg/dL [place] Chloride [Moles/Vol] 106 mmol/L [place] CO2 [Moles/Vol] 25 mmol/L [place] Creatinine [Mass/Vol] 0.97 mg/dL 0.7 - 1.2 mg/dL [place] GFR >60.0 >60 [place] Comment on above: >60 mL/min/1.73m2 EG FR, calc. for ages 18 and older using the MDRD formula (not corrected for weight), is valid for stable renal function. GFR Non- >60.0 >60 [place] Comment on above: >60 mL/min/1.73m2 EG FR, calc. for ages 18 and older using the MDRD formula (not corrected for weight), is valid for stable renal function. Globulin (S) [Mass/Vol] 2.6 g/dL 2.3 - 3.5 g/dL [place] Glucose [Mass/Vol] 95 mg/dL 70 - 99 mg/dL [place] Potassium [Moles/Vol] 4.1 mmol/L [place] Protein [Mass/Vol] 6.7 g/dL 6.3 - 8 g/dL [place] Sodium [Moles/Vol] 140 mmol/L [place] Urea nitrogen [Mass/Vol] 15 mg/dL 8 - 23 mg/dL [place] Lipid, Fastingon 05-15-2019 Cholesterol [Mass/Vol] 107 mg/dL 0 - 199 mg/dL [place] Comment on above: ATP III Cholesterol classification is Desirable. Cholesterol in HDL [Mass/Vol] 29 mg/dL Low 40 - 59 mg/dL [place] Comment on above: ATP III HDL [...] [Mass/Vol] 64 mg/dL 0 - 129 mg/dL [place] Comment on above: ATP III LDL Classifi cation is Optimal. Triglyceride, Fasting 72 mg/dL 0 - 150 mg/dL [place] Comment on above: ATP III Triglyceride s Classification is Normal. Otheron 05-15-2019 Interpretation and review of laboratory results Abnormal [place] Follow Up (Plastic Surgery)o n 06-01-2018 [...] are a physician or have access to [employer]:* Pathology and Cytology reports are located in [employer] [facility] in the folder labeled Medical Record Forms.* Reports are also in the Physician Portal.* For assistance locating reports call: (LAB) [phone] Performed By: #### L PATH ####[place] [address] [address].[place] [id number] Follow Up (Plastic Surgery)o n 05-11-2018 Follow [...] and authentication has not occurred.Name: RAMON COSTAMR: [id number]: Esa Castañeda M.D.DATE OF SURGERY: 05/04/2018ANESTHESIA:1ST LEGAL ARCHIVIST: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 No complications [facility] RAMON [id number] [address] [place] [id number]: Esa Castañeda MDOPERATIVE REPORTencountered during the procedure. Esa CASTAÑEDA M.D./[facility] ShawColin/[id number]: 05/11/2018 15:12:35 E/S:Electronicall y Signed __[facility] [id number] [address] [place] [id number]: Esa Castañeda MDOPERATIVE REPORT Normal [facility] Surgical Pathology Depar tmenton 05-04-2018 [facility] Surgical Pathology Department Name RAMON COSTA Pathologist: BELKIS COFFMAN, MDDate of Procedure: 05/04/2018Date Received: 05/04/2018Date Reported 05/13/2018Submitting Physician: ESA CASTAÑEDA MDLocation: [facility] Other External # [id number] FINAL DIAGNOSISA. LEFT LEG, BASAL CELL CARCINOMA, EXCISION:-- BASAL CELL CARCINOMA, SUPERFICIAL GROWTH PATTERN AND SCAR, INKED MARGINSFREE IN PLANES OF SECTIONS EXAMINED.Smoking Pipe Maker: Tono Mars MD. The gross and/or microscopic [...] LEG BASAL CELL CARCINOMA Other Case Numbers [id number] Description:Received in formalin, labeled with the patient's [...] body of ellipse 4 inferior tipd05/05/2018 Normal [facility] Comment on above: Performed By: #### U [facility] ####[facility] Surgical Pathology [id number] [facility] [address] Office Visiton 04-15-2018 Office Visit Chief ComplaintThe [...] Apr 15 2018 5:29PM EST (Author) Normal [employer] [address] [address]MFINHLH AND PHYSICAL EXAMINATIONPatient Name:RAMON COSTANorwalk Memorial Hospitalkolby Record Number: [id number] Physician: Quirino Sheehan M.D. Date: 04/26/2018Discharge Date:CHIEF [...] under MAC anesthesia.Quirino Sheehan M.D.INTERNAL JOB NUMBER: [id number]:Electronically signed by Quirino Sheehan MD on 01 Apr 2018 12:58:18 GMT Normal [facility] CBC With Differentialon 09-30 Basophils Auto #/vol (Bld) 0.04 10*3/uL Normal 0.01-0.09 [facility] Comment on above: Performed By: #### 2 [id number] ####[facility] [address] [place] [address] Basophils/100 WBC Auto (Bld) 0.6 % Normal 0.0-1.3 [facility] Comment on above: Performed By: #### 2 549665 ####[facility] Khc[address] [place] [address] Eosinophils Auto #/vol (Bld) 0.15 10*3/uL Normal 0.01-0.46 [facility] Comment on above: Performed By: #### 2 077572 ####[facility] Zho[address] [place] [address] Eosinophils/100 WBC Auto (Bld) 2.4 % Normal 0.0-6.7 [facility] Comment on above: Performed By: #### 2 020634 ####[facility] Qea[address] [place] [address] Erythrocyte distribution width Auto Ratio (RBC) 13.3 % Normal 12.0-15.4 [facility] Comment on above: Performed By: #### 2 418207 ####[facility] Vmt[address] [place] [address] Hematocrit Auto Volume Fraction (Bld) 44.4 % Normal 38.4-54.9 [facility] Comment on above: Performed By: #### 2 595734 ####[facility] Slt[address] [place] [address] Hemoglobin mass conc (Bld) 15.0 g/dL Normal 12.8-17.7 [facility] Comment on above: Performed By: #### 2 996708 ####[facility] Jvi[address] [place] [address] Imm Grans Absolute 0.02 10*3/uL Normal 0.00-0.21 [facility] Comment on above: Performed By: #### 2 903536 ####[facility] Fsd[address] [place] [address] Immature granulocytes #/vol (Bld) 0.3 % Normal [facility] Comment on above: Performed By: #### 2 197367 ####[facility] Hce[address] [place] [address] Lymphocytes Auto #/vol (Bld) 2.17 10*3/uL Normal 0.40-2.84 [facility] Healthcare Comment on above: Performed By: #### 2 707474 ####[facility] Pja[address] [place] [address] Lymphocytes/100 WBC Auto (Bld) 34.5 % Normal 9.4-41.1 [facility] Healthcare Comment on above: Performed By: #### 2 100441 ####[facility] Tuz[address] [place] [address] MCH Auto Entitic mass (RBC) 31.6 pg Normal 27.5-32.9 [facility] Healthcare Comment on above: Performed By: #### 2 179789 ####[facility] Buv[address] [place] [address] MCHC Auto mass conc (RBC) 33.8 g/dL Normal 30.5-35.4 [facility] Comment on above: Performed By: #### 2 518749 ####[facility] Eum[address] [place] [address] MCV Auto Entitic volume (RBC) 93.5 fL Normal 83.3-98.2 [facility] Comment on above: Performed By: #### 2 560390 ####[facility] Eco[address] [place] [address] Monocytes Auto #/vol (Bld) 0.56 10*3/uL Normal 0.25-1.33 [facility] Comment on above: Performed By: #### 2 168123 ####[facility] Eto[address] [place] [address] Monocytes/100 WBC Auto (Bld) 8.9 % Normal 3.0-16.2 [facility] Comment on above: Performed By: #### 2 400887 ####[facility] Vcu[address] [place] [address] Neutrophils Absolute 3.35 10*3/uL Normal 2.22-7.53 [facility] Comment on above: Performed By: #### 2 999203 ####[facility] Ynl[address] [place] [address] Neutrophils/100 WBC Auto (Bld) 53.3 % Normal 46.2-79.1 [facility] Comment on above: Performed By: #### 2 929787 ####[facility] Oug[address] [place] [address] NRBC Absolute 0.00 10*3/uL Normal [facility] Comment on above: Performed By: #### 2 938057 ####[facility] Bll[address] [place] [address] NRBC Automated 0.0 /100{WBCs} Normal [facility] Comment on above: Performed By: #### 2 025146 ####[facility] Xwr[address] [place] [address] Platelet mean volume Auto Entitic volume (Bld) 8.5 fL Low 9.9-12.1 [facility] Healthcare Comment on above: Performed By: #### 2 402861 ####[facility] Xcu[address] [place] [address] Platelets Auto #/vol (Bld) 180 10*3/uL Normal 155-404 [facility] Comment on above: Performed By: #### 2 305383 ####[facility] Yxb[address] [place] [address] RBC Auto #/vol (Bld) 4.75 10*6/uL Normal 4.08-6.37 [facility] Comment on above: Performed By: #### 2 620991 ####[facility] Mwo[address] [place] [address] RDW SD 45.9 fL Normal 39.3-48.6 [facility] Comment on above: Performed By: #### 2 987485 ####[facility] Kdf[address] [place] [address] WBC Auto #/vol (Bld) 6.3 10*3/uL Normal 4.2-11.0 [facility] Comment on above: Performed By: #### 2 784981 ####[facility] Hdu[address] [place] [address] Comprehensive Metabolic Pane otoniel 10-15-2017 Albumin mass conc 4.0 g/dL Normal 3.4-5.0 [facility] Comment on above: Performed By: #### 1 797000 ####[facility] Qtk[address] [place] [address] Albumin/Globulin mass ratio 1.5 {ratio} Normal 0.9-2.4 [facility] Comment on above: Performed By: #### 1 187770 ####[facility] Fkj[address] [place] [address] ALP enzyme act/vol 116 U/L Normal 45-117 [facility] Comment on above: Performed By: #### 1 107101 ####[facility] Frq[address] [place] [address] ALT enzyme act/vol 18 U/L Normal 10-52 [facility] Comment on above: Performed By: #### 1 247343 ####[facility] Pgz[address] [place] [address] Anion gap 3 molar conc 9 mmol/L Low 10-20 [facility] Comment on above: Performed By: #### 1 838484 ####[facility] Wkr[address] [place] [address] AST enzyme act/vol 13 U/L Normal 13-39 [facility] Comment on above: Performed By: #### 1 556692 ####[facility] Lnb[address] [place] [address] Bilirubin mass conc 0.8 mg/dL Normal 0.0-1.2 [facility] Comment on above: Performed By: #### 1 015786 ####[facility] Rid[address] [place] [address] Calcium mass conc 9.1 mg/dL Normal 8.6-10.3 [facility] Comment on above: Performed By: #### 1 093671 ####[facility] [address] [place] [address] Chloride molar conc 108 mmol/L High 98-107 [facility] Comment on above: Performed By: #### 1 973492 ####[facility] [address] [place] [address] Creatinine mass conc 1.12 mg/dL Normal 0.50-1.30 [facility] Comment on above: Performed By: #### 1 393070 ####[facility] Tfk[address] [place] [address] GFR/1.73 sq M.predicted MDRD vol rate/area mL/min/{1.73_m2} Normal [facility] Comment on above: Result Comment: Inte rpretation for Chronic Kidney Disease:Stages 1&2 >60 Healthy or potential kidney damage.Mild decrease of GFR.Stage 3 30-59 Moderate decrease of GFR.Stage 4 15-29 Severe decrease of GFR.Stage 5 <15 Kidney failure or on dialysis. Performed By: #### 1 199802 ####[facility] Ddg[address] [place] [address] Glucose mass conc 104 mg/dL High 70-100 [facility] Comment on above: Performed By: #### 1 884137 ####[facility] J[address] [place] [address] HCO3 molar conc (Bld) 28 mmol/L Normal 21-32 [facility] Comment on above: Performed By: #### 1 163016 ####[facility] U[address] [place] [address] Potassium molar conc 4.3 mmol/L Normal 3.5-5.1 [facility] Healthcare Comment on above: Performed By: #### 1 621400 ####[facility] N[address] [place] [address] Protein mass conc 6.6 g/dL Normal 6.4-8.2 [facility] Comment on above: Performed By: #### 1 526229 ####[facility] [address] [place] [address] Sodium molar conc 141 mmol/L Normal 136-145 [facility] Healthcare Comment on above: Performed By: #### 1 883651 ####[facility] [address] [place] [address] Urea nitrogen mass conc 12 mg/dL Normal 6-23 [facility] Comment on above: Performed By: #### 1 291835 ####[facility] [address] [place] [address] Urea nitrogen/Creatinine mass ratio 11 mg/mg Normal 5-25 [facility] Comment on above: Performed By: #### 1 960054 ####[facility] [address] [place] [address] Lipid Panelon 10-15-2017 Cholesterol in HDL mass conc 40 mg/dL Normal [facility] Comment on above: Result Comment: Norm al Mod Risk High Risk5-9 >48 42-48 <4210- 14 >45 40-45 <4015-19 >38 34-38 <34Adult >39 Performed By: #### 1 524586 ####[facility] [address] [place] [address] Cholesterol in LDL mass conc 74 mg/dL Normal <130 [facility] Comment on above: Performed By: #### 1 529841 ####[facility] [address] [place] [address] Cholesterol in VLDL mass conc 16 mg/dL Normal <30 [facility] Comment on above: Performed By: #### 1 324428 ####[facility] [address] [place] [address] Cholesterol mass conc 130 mg/dL Normal <200 [facility] Comment on above: Performed By: #### 1 910657 ####[facility] [address] [place] [address] Cholesterol.total/Ch olesterol in HDL mass ratio 3.2 {ratio} Normal [facility] Comment on above: Performed By: #### 1 830079 ####[facility] Vth[address] [place] [address] Triglyceride mass conc 81 mg/dL Normal <150 [facility] Comment on above: Result Comment: 150- 199 Borderline Tcih003-601 High>500 Very High Performed By: #### 1 306809 ####[address] [address] Prostate Specific Antigen, T otalon 10-15-2017 Protein mass conc 1.2 ng/mL Normal 0.0-4.0 [facility] Comment on above: Result Comment: 5-Al pha Reductase Inhibitors (e.g. Proscar,Finasteride, Avodart, Dutasteride and Lianne)may falsely decrease serum total PSA by 50%.To achieve the corrected value, the reportedPSA should be multiplied X 2. Performed By: #### 1 203650 ####[facility] [address] [place] [address] TSHon 10-15-2017 Thyrotropin Qn 0.54 mU/L Normal 0.44-3.98 [facility] Comment on above: Performed By: #### 1 478404 ####[address] [address] XR Abdomen 1 Viewon 10-06-19 18 XR [...] pmSigned by: Ramon Hampton DO Technologist: TEX [facility] XR Abdomen 1 Viewon 09-10-19 18 XR [...] pmSigned by: Ramon Hampton DO Technologist: TEX [facility] Calculus Analysison 09-02-19 18 Ammonium Acid Urate Not Performed Normal [facility] Comment on above: Performed By: #### 2 765122 ####HEATHER [address]fVeuo[address] [place] [address] Body weight Measured 176.0 mg Normal [facility] Comment on above: Performed By: #### 2 452338 ####HEATHER [address]ynj[address] [place] [address] [place] Hydrogen Phos Not Performed [facility] Comment on above: Performed By: #### 2 326156 ####HEATHER Q[address]Hnpf[address]14 [place] [address] [place] Oxalate, Dihydrate Not Performed [facility] Comment on above: Performed By: #### 2 522554 ####HEATHERHarmony RogersRreVtwv1399 [place] [address] [place] Oxalate, Monohydr 95 % [facility] Comment on above: Performed By: #### 2 270085 ####HEATHER [address] [place] [address] Calcium Bilirubinate Not Performed [facility] Comment on above: Performed By: #### 2 954007 ####HEATHERHarmony RogersNcyJdjc7608 [place] [address] Calcium Carbonate Not Performed [facility] Comment on above: Performed By: #### 2 159410 ####HEATHERHarmony [address]OigMcva[address]85 [place] [address] Calcium Phos 05 % [facility] Comment on above: Performed By: #### 2 691968 ####HEATHERHarmony RogersJnvSlfo[address]70 [place] [address] Cellular Material Not Performed [facility] Comment on above: Performed By: #### 2 417751 ####HEATHERHarmony RogersJujKnux[address] [place] [address] Cholesterol mass conc Not Performed [facility] Comment on above: Performed By: #### 2 127857 ####HEATHERHarmony RogersHvlIjng[address] [place] [address]86[address] Color Nom (U) Brown [facility] Comment on above: Performed By: #### 2 751532 ####HEATHER [address]car[address] [place] [address] Comment 1 Not Performed [facility] Comment on above: Performed By: #### 2 881695 ####HEATHER T[address]so[address] [place] [address] Comment 2 Note: [facility] Comment on above: Result Comment: Plea se do not submit specimens on Q-Tips, in tape, onfilters, or in liquids such as blood, urine or formalin.This may cause unnecessary biohazards, erroneous resultsand/or delay in the processing of the specimen. Performed By: #### 2 762504 ####HEATHER RogersFmaUxdn5138 [place] [address] Comment 3 Comment [facility] Comment on above: Result Comment: Phys marielaan questions regarding Calculi Analysis [facility] at: [phone]. Performed By: #### 2 602263 ####HEATHER [address]bkBeld[address] [place] [address] Composition Comment [facility] Comment on above: Result Comment: Perc entage (Represents the % composition) Performed By: #### 2 072715 ####HEATHER JayWewv[address]24 [place] [address] Cystine Not Performed [facility] Comment on above: Performed By: #### 2 546843 ####HEATHER PvcIogx3076 [place] [address] Disclaimer: Comment [facility] Comment on above: Result Comment: This test was developed and its performance characteristicsdetermined by [facility]. It has not been cleared orapproved by the Food and Drug Administration.Performed At: [address] [id number] Ruth MD Ph:[phone] Performed By: #### 2 575073 ####HEATHER LqmLeqw5264 [place] [address] Dried Blood Not Performed [facility] Comment on above: Performed By: #### 2 567550 ####HEATHER KhwEsva[address]753 [place] [address] Mag Henryetta Phos Not Performed [facility] Comment on above: Performed By: #### 2 740000 ####HEATHER UniUwyi6343 [place] [address] Newberyite Not Performed [facility] Comment on above: Performed By: #### 2 712587 ####HEATHER HrcMsry4717 [place] [address] Nidus No Nidus visualized [facility] Comment on above: Performed By: #### 2 580605 ####HEATHER RogersCxgNxin[address]83 [place] [address] Note: Comment [facility] Comment on above: Result Comment: Calc jose rafael report without photograph will follow via computer,mail, or fruit loader delivery. Performed By: #### 2 983803 ####HEATHER RogersMozEnos[address] [place] [address] Shell Not Performed [facility] Comment on above: Performed By: #### 2 664275 ####HEATHER RogersLwbIgfg2376 [place] [address] Size Comment [facility] Comment on above: Result Comment: Spec imen received as fragments. Performed By: #### 2 [id number] ####HEATHER RogersUxsGgsl8375 [place] [address] Sodium molar conc Not Performed [facility] Comment on above: Performed By: #### 2 245101 ####HEATHER RogersGuuAqle8523 [place] [address] Surface Crystals Not Performed [facility] Comment on above: Performed By: #### 2 528155 ####HEATHER RogersFfxQgpk4505 [place] [address] Triamterene Not Performed [facility] Comment on above: Performed By: #### 2 758128 ####HEATHER RogersQurFyth8878 [place] [address] Uric Acid Dihydrate Not Performed [facility] Comment on above: Performed By: #### 2 922766 ####HEATHER RogersDgcAxjr5760 [place] [address] Uric Acid. Not Performed [facility] Comment on above: Performed By: #### 2 776816 ####HEATHER RogersBuyIjgv8943 [place] [id number] XR Abdomen APon 08-19-2017 INR Coag RelTime [...] pmSigned by: Sundar Jacobsen MD Technologist: STEPHANIE [facility] Calculus Analysison 08-13-20 17 Ammonium Acid Urate Not Performed Normal [facility] Comment on above: Performed By: #### 2 220152 ####HEATHER TreQgkb3793 [place] [address] Body weight Measured 6.9 mg [facility] Comment on above: Performed By: #### 2 100111 ####HEATHER QehElvx6740 [place] [address] CA Hydrogen Phos Not Performed [facility] Comment on above: Performed By: #### 2 848678 ####HEATHER KycEafq8249 [place] [address] CA Oxalate, Dihydrate Not Performed [facility] Comment on above: Performed By: #### 2 005669 ####HEATHER CsrPpul9372 [place] [address] CA Oxalate, Monohydr 97 % [facility] Comment on above: Performed By: #### 2 518927 ####HEATHER JloQsxz4621 [place] [address] Calcium Bilirubinate Not Performed Normal [facility] Comment on above: Performed By: #### 2 214041 ####HEATHER WlrBcea9589 [place] [address] Calcium Carbonate Not Performed [facility] Comment on above: Performed By: #### 2 398747 ####HEATHER FybNpan3163 [place] [address] Calcium Phos 03 % [facility] Comment on above: Performed By: #### 2 953924 ####HEATHER WasQcbi8660 [place] [address] Cellular Material Not Performed [facility] Comment on above: Performed By: #### 2 233978 ####HEATHERHarmony RogersPeuBkim6750 [place] [address] Cholesterol mass conc Not Performed [facility] Comment on above: Performed By: #### 2 425016 ####HEATHERHarmony RogersHpeDaux0841 [place] [address] Color Nom (U) Brown [facility] Comment on above: Performed By: #### 2 973163 ####HEATHERHarmony RogersZxoCwyk8028 [place] [address] Comment 1 Not Performed [facility] Comment on above: Performed By: #### 2 169348 ####HEATHER WphRzej2383 [place] [address] Comment 2 Not Performed [facility] Comment on above: Performed By: #### 2 451833 ####HEATHER BajXrfj5616 [place] [address] Comment 3 Comment [facility] Comment on above: Result Comment: Phys willian questions regarding Calculi Analysis [facility] at: [phone]. Performed By: #### 2 533678 ####HEATHERHarmony RogersBlvXcue2629 [place] [address] Composition Comment [facility] Comment on above: Result Comment: Perc entage (Represents the % composition) Performed By: #### 2 139234 ####HEATHER ApgUmzi8767 [place] [address] Cystine Not Performed [facility] Comment on above: Performed By: #### 2 515499 ####HEATHER AvlNryk4944 [place] [address] Disclaimer: Comment [facility] Comment on above: Result Comment: This test was developed and its performance characteristicsdetermined by [employer]. It has not been cleared orapproved by the Food and Drug Administration.Performed At: [address] [id number] Ruth MD Ph:[phone] Performed By: #### 2 212275 ####HEATHER JvzSymi2428 [place] [address] Dried Blood Not Performed [facility] Comment on above: Performed By: #### 2 852706 ####HEATHER SomRozt4249 [place] [address] Mag Henryetta Phos Not Performed [facility] Comment on above: Performed By: #### 2 413725 ####HEATHERHarmony RogersPggNgdr1590 [place] [address] Newberyite Not Performed [facility] Comment on above: Performed By: #### 2 508877 ####HEATHERHarmony RogersSyhElnl6076 [place] [address] Nidus Comment [facility] Comment on above: Result Comment: Nidu s composed of Calcium oxalate monohydrate. Performed By: #### 2 302624 ####HEATHERHarmony RogersKscRkfo7978 [place] [address] Note: Comment [facility] Comment on above: Result Comment: Calc jose rafael report without photograph will follow via computer,mail, or fruit loader delivery. Performed By: #### 2 580776 ####HEATHERHarmony RogersVmcEksw9765 [place] [address] Shell Not Performed [facility] Comment on above: Performed By: #### 2 361560 ####HEATHER VgkWqdp4202 [place] [address] Size Comment [facility] Comment on above: Result Comment: Spec imen received as fragments. Performed By: #### 2 360709 ####HEATHER YyiPdxf2237 [place] [address] Sodium molar conc Not Performed [facility] Comment on above: Performed By: #### 2 207759 ####HEATHER EgtMvvs8609 [place] [address] Surface Crystals Not Performed Normal [facility] Comment on above: Performed By: #### 2 255190 ####HEATHER BtdAycq3161 [place] [address] Triamterene Not Performed Normal [facility] Comment on above: Performed By: #### 2 821089 ####HEATHER TpxCdkr8149 [place] [address] Uric Acid Dihydrate Not Performed Normal [facility] Comment on above: Performed By: #### 2 635547 ####HEATHER KduCgya9798 [place] [address] Uric Acid. Not Performed Normal [facility] Comment on above: Performed By: #### 2 269160 ####HEATHER BzpZshu5730 [place] [address] C Urineon 08-12-2017 C Urine Final Report: Rare N ormal skin naima isolated Normal [facility] Comment on above: Performed By: #### 2 215099 ####HEATHER RogersJgjMlhc8767 [place] [address] XR Abdomen APon 08-11-2017 XR Abdomen AP [...] by: Wally Maldonado MD Technologist: MGW Normal [facility] XR Urography Retrograde Righ ton 08-11-2017 INR [...] by: Sundar Jacobsen MD Technologist: HLL Normal [facility] Auto Diffon 08-10-2017 Basophils Auto #/vol (Bld) 0.0 E3/mcL Normal 0.0-0.2 [facility] Comment on above: Order Comment: Order Added by Discern Expert. Performed By: #### 2 879480 ####HEATHER Youngo1025 [place] [address] Basophils/100 WBC Auto (Bld) 0.2 % Normal 0.0-2.0 [facility] Comment on above: Order Comment: Order Added by Discern Expert. Performed By: #### 2 707966 ####HEATHER RogersLsyLsss2126 [place] [address] Eos Absolute 0.0 E3/mcL Normal 0.0-0.7 [facility] Comment on above: Order Comment: Order Added by Discern Expert. Performed By: #### 2 796499 ####HEATHER RogersJqfSqpr2063 [place] [address] Eosinophils/100 WBC Auto (Bld) 0.5 % Normal 0.0-11.0 [facility] Comment on above: Order Comment: Order Added by Discern Expert. Performed By: #### 2 981303 ####HEATHER Youngo1025 [place] [address] Lymphocytes Auto #/vol (Bld) 1.6 E3/mcL Normal 1.2-3.4 [facility] Comment on above: Order Comment: Order Added by Discern Expert. Performed By: #### 2 539246 ####HEATHER Youngo1025 [place] [address] Lymphocytes/100 WBC Auto (Bld) 15.4 % Low 20.0-55.0 [facility] Comment on above: Order Comment: Order Added by Discern Expert. Performed By: #### 2 534062 ####HEATHER RogersSlcQkgk9892 [place] [address] [place] Absolute 0.8 E3/mcL High 0.0-0.7 [facility] Comment on above: Order Comment: Order Added by Discern Expert. Performed By: #### 2 133024 ####HEATHER Youngo1025 [place] [address] Monocytes/100 WBC Auto (Bld) 7.4 % Normal 0.0-10.0 [facility] Comment on above: Order Comment: Order Added by Discern Expert. Performed By: #### 2 742220 ####HEATHER Youngo1025 [place] [address] Neutro Absolute 7.9 E3/mcL High 1.4-6.5 [facility] Comment on above: Order Comment: Order Added by Discern Expert. Performed By: #### 2 087157 ####HEATHER Youngo1025 [place] [address] Neutro Auto 76.5 % High 37.0-75.0 [facility] Comment on above: Order Comment: Order Added by Discern Expert. Performed By: #### 2 675171 ####HEATHER Youngo1025 [place] [address] BMPon 08-10-2017 Creatinine mass conc 1.2 mg/dL Normal 0.6-1.3 [facility] Comment on above: Performed By: #### 2 041524 ####HEATHER Youngo1025 [place] [address] Urea nitrogen mass conc 18 mg/dL Normal 7-18 [facility] Comment on above: Performed By: #### 2 679655 ####HEATHER Youngo1025 [place] [address] Urea nitrogen/Creatinine mass ratio 15.0 ratio Normal 5.4-30.0 [facility] Comment on above: Performed By: #### 2 969814 ####HEATHER Youngo1025 [place] [address] Calcium mass conc 8.9 mg/dL Normal 8.4-10.2 [facility] Comment on above: Performed By: #### 2 708986 ####HEATHER Youngo1025 [place] [address] Chloride molar conc 108 mmol/L High 98-107 [facility] Comment on above: Performed By: #### 2 065581 ####HEATHER Youngo1025 [place] [address] CO2 molar conc 24.4 mmol/L Normal 24.0-30.0 [facility] Comment on above: Performed By: #### 2 248614 ####HEATHER Youngo1025 [place] [address] Glucose mass conc 120 mg/dL High 70-99 [facility] Comment on above: Performed By: #### 2 033187 ####HEATHER Youngo1025 [place] [address] Potassium molar conc 3.7 mmol/L Normal 3.5-5.1 [facility] Comment on above: Performed By: #### 2 878553 ####HEATHER Youngo1025 [place] [address] Sodium molar conc 139 mmol/L Normal 136-145 [facility] Comment on above: Performed By: #### 2 828386 ####HEATHER RogersXulHwqf0242 [place] [address] CBC w/ Auto Diffon 7 Erythrocyte distribution width Auto Ratio (RBC) 13.4 % Normal 11.5-14.5 [facility] Comment on above: Performed By: #### 2 469951 ####HEATHER Youngo1025 [place] [address] Hematocrit Auto Volume Fraction (Bld) 42.7 % Normal 42.0-52.0 [facility] Comment on above: Performed By: #### 2 152778 ####HEATHER RogersRrwFgii5554 [place] [address] Hemoglobin mass conc (Bld) 14.6 g/dL Normal 13.5-18.0 [facility] Comment on above: Performed By: #### 2 660146 ####HEATHERHarmony RogersJqpFfhc6992 [place] [address] MCH Auto Entitic mass (RBC) 31.6 pg High 27.0-31.0 [facility] Comment on above: Performed By: #### 2 525102 ####HEATHERHarmony RogersYamVyco1354 [place] [address] MCHC Auto mass conc (RBC) 34.2 g/dL Normal 33.0-37.0 [facility] Comment on above: Performed By: #### 2 521067 ####HEATHERHarmony RogersDpgAlvn1366 [place] [address] MCV Auto Entitic volume (RBC) 92.5 fL Normal 78.0-100.0 [facility] Comment on above: Performed By: #### 2 687405 ####HEATHERHarmony RogersYaoDhvz1490 [place] [address] Platelet mean volume Auto Entitic volume (Bld) 6.6 fL Low 7.4-11.0 [facility] Comment on above: Performed By: #### 2 078543 ####HEATHERHarmony RogersBjmJwqr0115 [place] [address] Platelets Auto #/vol (Bld) 201 E3/mcL Normal 130-400 [facility] Comment on above: Performed By: #### 2 546496 ####HEATHER RogersCwzPwhq1399 [place] [address] RBC Auto #/vol (Bld) 4.62 E6/mcL Normal 3.90-6.10 [facility] Comment on above: Performed By: #### 2 010822 ####HEATHER QcjLdwb8297 [place] [address] WBC Auto #/vol (Bld) 10.3 E3/mcL Normal 3.6-11.0 [facility] Comment on above: Performed By: #### 2 938443 ####HEATHER YyhGmry6061 [place] [address] CT Abdomen/Pelvis w/o Emmett vargas 08-10-2017 CT [...] José Luis Pendleton MD Technologist: SRH Normal [facility] UA Completeon 08-10-2017 Color Nom (U) [place] Abnormal Yellow [facility] Comment on above: Performed By: #### 2 990584 ####HEATHER QzxVwvw9021 [place] [address] Glucose mass conc (U) Negative Normal Negative [facility] Comment on above: Performed By: #### 2 979359 ####HEATHERHarmony RogersVlcDmau0226 [place] [address] Ketones Ql (U) Trace Normal [facility] Comment on above: Performed By: #### 2 556926 ####HEATHERHarmony RogersSldVnav4989 [place] [address] RBC Test strip #/vol (U) /uL Abnormal 0-3 [facility] Comment on above: Performed By: #### 2 486111 ####HEATHERHarmony RogersArzHisy2965 [place] [address] UA Blood 3+ Normal Negative [facility] Comment on above: Result Comment: High concentration of Ascorbic Acid present in urine. This may cause False Negative Occ Blood. Review microscopic results and patient's clinical symptoms. Performed By: #### 2 089543 ####HEATHERHarmony RogersLhyQdyx2699 [place] [address] UA Ascorbic Acid 40 mg/dL High <=19 [facility] Comment on above: Performed By: #### 2 962225 ####HEATHERHarmony RogersVjkVuoq1512 [place] [address] UA Bacteria 1+ /HPF Abnormal None [facility] Comment on above: Performed By: #### 2 134874 ####HEATHERHarmony RogersUpyFrjt6808 [place] [address] UA Clarity Cloudy Abnormal Clear [facility] Comment on above: Performed By: #### 2 219075 ####HEATHERHarmony RogersUocAges7478 [place] [id number] UA Leuk Est 1+ Abnormal Negative [facility] Comment on above: Performed By: #### 2 959855 ####HAETHER Youngo1025 [place] [address] UA Mucous Occasional Abnormal Trace [facility] Comment on above: Performed By: #### 2 544592 ####HEATHER Youngo1025 [place] [address] UA Nitrite Positive Abnormal Negative [facility] Comment on above: Performed By: #### 2 709235 ####HEATHER Youngo1025 [place] [address] UA pH 7.0 Normal 4.6-8.0 [facility] Comment on above: Performed By: #### 2 172719 ####HEATHER Youngo1025 [place] [address] UA Protein 2+ Abnormal Negative [facility] Comment on above: Performed By: #### 2 961000 ####HEATHER Youngo1025 [place] [address] UA Spec Grav 1.015 Normal 1.003-1.030 [facility] Comment on above: Performed By: #### 2 549274 ####HEATHER Youngo1025 [place] [address] UA Urobilinogen 4.0 mg/dL Abnormal [facility] Comment on above: Performed By: #### 2 001508 ####HEATHER Youngo1025 [place] [address] UA WBC >50 Abnormal 0-5 [facility] Comment on above: Performed By: #### 2 813189 ####HEATHER Youngo1025 [place] [address] Urobilinogen Test strip Qn (U) Negative Normal Negative [facility] Comment on above: Performed By: #### 2 371388 ####HEATHER Youngo1025 [place] [address] eGFRon 08-10-2017 eGFR AA >60 Normal [facility] Comment on above: Order Comment: Order added by Discern Expert. Performed By: #### 2 498627 ####HEATHER Youngo1025 [place] [address] GFR/1.73 sq M predicted among non-blacks MDRD vol rate/area (S/P/Bld) mL/min/{1.73_m2} Normal [facility] Comment on above: Order Comment: Order added by Discern Expert. Performed By: #### 2 078512 ####HEATHER Youngo1025 [place] [address] Auto Diffon 08-06-2017 Basophils Auto #/vol (Bld) 0.0 E3/mcL Normal 0.0-0.2 [facility] Comment on above: Order Comment: Order Added by Discern Expert. Performed By: #### 2 559943 ####HEATHER Youngo1025 [place] [address] Basophils/100 WBC Auto (Bld) 0.3 % Normal 0.0-2.0 [facility] Comment on above: Order Comment: Order Added by Discern Expert. Performed By: #### 2 766802 ####HEATHER Youngo1025 [place] [address] Eos Absolute 0.0 E3/mcL Normal 0.0-0.7 [facility] Comment on above: Order Comment: Order Added by Discern Expert. Performed By: #### 2 066384 ####HEATHER RogersHanWspg4137 [place] [address] Eosinophils/100 WBC Auto (Bld) 0.4 % Normal 0.0-11.0 [facility] Comment on above: Order Comment: Order Added by Discern Expert. Performed By: #### 2 575022 ####HEATHER RogersDljBmig3606 [place] [address] Lymphocytes Auto #/vol (Bld) 1.1 E3/mcL Low 1.2-3.4 [facility] Comment on above: Order Comment: Order Added by Discern Expert. Performed By: #### 2 004497 ####HEATHER RogersYofAmvk2624 [place] [address] Lymphocytes/100 WBC Auto (Bld) 10.1 % Low 20.0-55.0 [facility] Comment on above: Order Comment: Order Added by Discern Expert. Performed By: #### 2 822162 ####HEATHER RogersFphIpgx3183 [place] [address] [place] Absolute 0.6 E3/mcL Normal 0.0-0.7 [facility] Comment on above: Order Comment: Order Added by Discern Expert. Performed By: #### 2 239581 ####HEATHER Youngo1025 [place] [address] Monocytes/100 WBC Auto (Bld) 5.0 % Normal 0.0-10.0 [facility] Comment on above: Order Comment: Order Added by Discern Expert. Performed By: #### 2 390433 ####HEATHER Youngo1025 [place] [address] Neutro Absolute 9.4 E3/mcL High 1.4-6.5 [facility] Comment on above: Order Comment: Order Added by Discern Expert. Performed By: #### 2 892013 ####HEATHER Youngo1025 [place] [address] Neutro Auto 84.2 % High 37.0-75.0 [facility] Comment on above: Order Comment: Order Added by Discern Expert. Performed By: #### 2 023309 ####HEATHER Youngo1025 [place] [address] BMPon 08-06-2017 Creatinine mass conc 1.4 mg/dL High 0.6-1.3 [facility] Comment on above: Performed By: #### 2 108982 ####HEATHER Youngo1025 [place] [address] Urea nitrogen mass conc 18 mg/dL Normal 7-18 [facility] Comment on above: Performed By: #### 2 969611 ####HEATHER Youngo1025 [place] [address] Urea nitrogen/Creatinine mass ratio 12.9 ratio Normal 5.4-30.0 [facility] Comment on above: Performed By: #### 2 152120 ####HEATHER Youngo1025 [place] [address] Calcium mass conc 8.9 mg/dL Normal 8.4-10.2 [facility] Comment on above: Performed By: #### 2 120734 ####HEATHER Youngo1025 [place] [address] Chloride molar conc 106 mmol/L Normal 98-107 [facility] Comment on above: Performed By: #### 2 709929 ####HEATHER RogersPztAvzd5082 [place] [address] CO2 molar conc 24.6 mmol/L Normal 24.0-30.0 [facility] Comment on above: Performed By: #### 2 016264 ####HEATHER RogersVfpZifu5288 [place] [address] Glucose mass conc 126 mg/dL High 70-99 [facility] Comment on above: Performed By: #### 2 915992 ####HEATHER Youngo1025 [place] [address] Potassium molar conc 3.7 mmol/L Normal 3.5-5.1 [facility] Comment on above: Performed By: #### 2 243473 ####HEATHER Youngo1025 [place] [address] Sodium molar conc 138 mmol/L Normal 136-145 [facility] Comment on above: Performed By: #### 2 837850 ####HEATHER Youngo1025 [place] [address] CBC w/ Auto Diffon 7 Erythrocyte distribution width Auto Ratio (RBC) 13.9 % Normal 11.5-14.5 [facility] Comment on above: Performed By: #### 2 709639 ####HEATHER Youngo1025 [place] [address] Hematocrit Auto Volume Fraction (Bld) 44.1 % Normal 42.0-52.0 [facility] Comment on above: Performed By: #### 2 905554 ####HEATHER Youngo1025 [place] [address] Hemoglobin mass conc (Bld) 15.0 g/dL Normal 13.5-18.0 [facility] Comment on above: Performed By: #### 2 242223 ####HEATHER RogersNgtZqna7849 [place] [address] MCH Auto Entitic mass (RBC) 31.7 pg High 27.0-31.0 [facility] Comment on above: Performed By: #### 2 156749 ####HEATHER RogersGoqNdiv2786 [place] [address] MCHC Auto mass conc (RBC) 34.0 g/dL Normal 33.0-37.0 [facility] Comment on above: Performed By: #### 2 755771 ####HEATHER Youngo1025 [place] [address] MCV Auto Entitic volume (RBC) 93.1 fL Normal 78.0-100.0 [facility] Comment on above: Performed By: #### 2 350344 ####HEATHER Youngo1025 [place] [address] Platelet mean volume Auto Entitic volume (Bld) 7.1 fL Low 7.4-11.0 [facility] Comment on above: Performed By: #### 2 963946 ####HEATHER Youngo1025 [place] [address] Platelets Auto #/vol (Bld) 180 E3/mcL Normal 130-400 [facility] Comment on above: Performed By: #### 2 420520 ####HEATHER RogersWcpYihk8858 [place] [address] RBC Auto #/vol (Bld) 4.73 E6/mcL Normal 3.90-6.10 [facility] Comment on above: Performed By: #### 2 613638 ####HEATHER Youngo1025 [place] [address] WBC Auto #/vol (Bld) 11.2 E3/mcL High 3.6-11.0 [facility] Comment on above: Performed By: #### 2 513634 ####HEATHER RogersSrgEqgw7304 [place] [address] UA Completeon 08-06-2017 Color Nom (U) [place] Abnormal Yellow [facility] Comment on above: Performed By: #### 8 1889704 ####HEATHER Urinalysis Automated Bhctqmycza3238 [place] [address] Glucose mass conc (U) Negative Normal Negative [facility] Comment on above: Performed By: #### 8 5476221 ####HEATHER Urinalysis Automated Rokosueowg3271 [place] [address] Ketones Ql (U) Trace Normal [facility] Comment on above: Performed By: #### 8 6239301 ####HEATHER Urinalysis Automated Ekdontrcnx6860 [place] [address] RBC Test strip #/vol (U) /uL Abnormal 0-3 [facility] Comment on above: Performed By: #### 8 2492432 ####HEATHER Urinalysis Automated [address] [place] [address] UA Blood 3+ Normal Negative [facility] Comment on above: Result Comment: High concentration of Ascorbic Acid present in urine. This may cause False Negative Occ Blood. Review microscopic results and patient's clinical symptoms. Performed By: #### 8 [id number] ####HEATHER Urinalysis Automated L[address]ns[address] [place] [address] UA Ascorbic Acid 40 mg/dL High <=19 [facility] Comment on above: Performed By: #### 8 3342648 ####HEATHER Urinalysis Automated Jahbdytoia[address] [place] [address] UA Clarity Cloudy Abnormal Clear [facility] Comment on above: Performed By: #### 8 0696290 ####HEATHER Urinalysis Automated C[address]crfpoof[address] [place] [address] UA Leuk Est Negative Normal Negative [facility] Comment on above: Performed By: #### 8 5784772 ####HEATHER Urinalysis Automated [address]xkfzac[address] [place] [address] UA Mucous Trace Abnormal Trace [facility] Comment on above: Performed By: #### 8 1452038 ####HEATHER Urinalysis Automated Pffejohrgo[address] [place] [address] UA Nitrite Negative Normal Negative [facility] Comment on above: Performed By: #### 8 1901370 ####HEATHER Urinalysis Automated Bl[address]mncp[address] [place] [address] UA pH 5.0 Normal 4.6-8.0 [facility] Comment on above: Performed By: #### 8 6251098 ####HEATHER Urinalysis Automated F[address]mhk[address] [place] [address] UA Protein 2+ Abnormal Negative [facility] Comment on above: Performed By: #### 8 7685811 ####HEATHER Urinalysis Automated Gopnudpift0693 [place] [address] UA Spec Grav 1.023 Normal 1.003-1.030 [facility] Comment on above: Performed By: #### 8 3001099 ####HEATHER Urinalysis Automated Tkzcqbyjqr0915 [place] [address] UA Squam Epithelial 0-5 Normal 0-5 [facility] Comment on above: Performed By: #### 8 4295925 ####HEATHER Urinalysis Automated Qvswwqxnoq4482 [place] [address] UA Urobilinogen Negative Normal [facility] Comment on above: Performed By: #### 8 8834827 ####HEATHER Urinalysis Automated Dqisiwfqrk4640 [place] [address] Urobilinogen Test strip Qn (U) Negative Normal Negative [facility] Comment on above: Performed By: #### 8 [id number] ####HEATHER Urinalysis Automated [address] [place] [address] XR Abdomen APon 08-06-2017 XR Abdomen AP [...] by: Koki SKY, Figueroa Technologist: SULLY Normal [facility] eGFRon 08-06-2017 eGFR AA >60 Normal [facility] Comment on above: Order Comment: Order added by Cristina Expert. Performed By: #### 2 [id number] ####HEATHER Youngo1025 [place] [address] GFR/1.73 sq M predicted among non-blacks MDRD vol rate/area (S/P/Bld) 52 mL/min/1.73 m2 Normal [facility] Comment on above: Order Comment: Order added by Cristina Expert. Performed By: #### 2 [id number] ####HEATHER RogersSjtErnv3996 [place] [address] Auto Diffon 08-03-2017 Basophils Auto #/vol (Bld) 0.0 E3/mcL Normal 0.0-0.2 [facility] Comment on above: Order Comment: Order Added by Cristina Expert. Performed By: #### 2 [id number] ####HEATHER RogersDhsDome0358 [place] [address] Basophils/100 WBC Auto (Bld) 0.5 % Normal 0.0-2.0 [facility] Comment on above: Order Comment: Order Added by Cristina Expert. Performed By: #### 2 [id number] ####HEATHER RogersUsmUnnk4153 [place] [address] Eos Absolute 0.1 E3/mcL Normal 0.0-0.7 [facility] Comment on above: Order Comment: Order Added by Cristina Expert. Performed By: #### 2 [id number] ####HEATHER RogersEjwJmet6012 [place] [address] Eosinophils/100 WBC Auto (Bld) 1.2 % Normal 0.0-11.0 [facility] Comment on above: Order Comment: Order Added by Cristina Expert. Performed By: #### 2 [id number] ####HEATHER RogersHrpFmzm6125 [place] [address] Lymphocytes Auto #/vol (Bld) 2.1 E3/mcL Normal 1.2-3.4 [facility] Comment on above: Order Comment: Order Added by Cristina Expert. Performed By: #### 2 [id number] ####HEATHER Youngo1025 [place] [address] Lymphocytes/100 WBC Auto (Bld) 26.4 % Normal 20.0-55.0 [facility] Comment on above: Order Comment: Order Added by Discern Expert. Performed By: #### 2 [id number] ####HEATHER Youngo1025 [place] [address] [place] Absolute 0.5 E3/mcL Normal 0.0-0.7 [facility] Comment on above: Order Comment: Order Added by Discern Expert. Performed By: #### 2 [id number] ####HEATHER Youngo1025 [place] [address] Monocytes/100 WBC Auto (Bld) 6.0 % Normal 0.0-10.0 [facility] Comment on above: Order Comment: Order Added by Discern Expert. Performed By: #### 2 [id number] ####HEATHER Y[address]1025 [place] [address] Neutro Absolute 5.4 E3/mcL Normal 1.4-6.5 [facility] Comment on above: Order Comment: Order Added by Discern Expert. Performed By: #### 2 [id number] ####HEATHER Youngo1025 [place] [address] Neutro Auto 65.9 % Normal 37.0-75.0 [facility] Comment on above: Order Comment: Order Added by Discern Expert. Performed By: #### 2 [id number] ####HEATHER Youngo1025 [place] [address] BMPon 08-03-2017 Creatinine mass conc 1.0 mg/dL Normal 0.6-1.3 [facility] Comment on above: Performed By: #### 2 [id number] ####HEATHER RogersOnaPvbz8855 [place] [address] Urea nitrogen mass conc 13 mg/dL Normal 7-18 [facility] Comment on above: Performed By: #### 2 [id number] ####HEATHER RogersJlqSuth6196 [place] [address] Urea nitrogen/Creatinine mass ratio 13.0 ratio Normal 5.4-30.0 [facility] Comment on above: Performed By: #### 2 [id number] ####HEATHER JdaPrfb2420 [place] [address] Calcium mass conc 9.0 mg/dL Normal 8.4-10.2 [facility] Comment on above: Performed By: #### 2 359498 ####HEATHER YhnIcsq5906 [place] [address] Chloride molar conc 111 mmol/L High 98-107 [facility] Comment on above: Performed By: #### 2 284201 ####HEATHER QicBvuu5751 [place] [address] CO2 molar conc 24.2 mmol/L Normal 24.0-30.0 [facility] Comment on above: Performed By: #### 2 564002 ####HEATHER OxjHwhk7422 [place] [address] Glucose mass conc 102 mg/dL High 70-99 [facility] Comment on above: Performed By: #### 2 755481 ####HEATHER PbeQiwf1081 [place] [address] Potassium molar conc 3.8 mmol/L Normal 3.5-5.1 [facility] Comment on above: Performed By: #### 2 [id number] ####HEATHER QeoJdqa0993 [place] [address] Sodium molar conc 142 mmol/L Normal 136-145 [facility] Comment on above: Performed By: #### 2 801997 ####HEATHER OsnOqgk5815 [place] [address] CBC w/ Auto Diffon 7 Erythrocyte distribution width Auto Ratio (RBC) 14.2 % Normal 11.5-14.5 [facility] Comment on above: Performed By: #### 2 [id number] ####HEATHER RogersXtsSgzz2142 [place] [address] Hematocrit Auto Volume Fraction (Bld) 49.1 % Normal 42.0-52.0 [facility] Comment on above: Performed By: #### 2 870215 ####HEATHER RogersUwzUsvz9519 [place] [address] Hemoglobin mass conc (Bld) 16.6 g/dL Normal 13.5-18.0 [facility] Comment on above: Performed By: #### 2 977389 ####HEATHERHarmony YoungBfrOlzk0057 [place] [id number] MCH Auto Entitic mass (RBC) 31.8 pg High 27.0-31.0 [facility] Comment on above: Performed By: #### 2 [id number] ####HEATHERHarmony YoungAjrGfdz2503 [place] [address] MCHC Auto mass conc (RBC) 33.8 g/dL Normal 33.0-37.0 [facility] Comment on above: Performed By: #### 2 609360 ####HEATHERHarmony YoungXupRxdl5766 [place] [address] MCV Auto Entitic volume (RBC) 94.0 fL Normal 78.0-100.0 [facility] Comment on above: Performed By: #### 2 [id number] ####HEATHERHarmony YoungYhdAxwo4688 [place] [address] Platelet mean volume Auto Entitic volume (Bld) 6.9 fL Low 7.4-11.0 [facility] Comment on above: Performed By: #### 2 [id number] ####HEATHER JphOryk2192 [place] [address] Platelets Auto #/vol (Bld) 191 E3/mcL Normal 130-400 [facility] Comment on above: Performed By: #### 2 728534 ####HEATHERHarmony RogersCabEkip2963 [place] [id number] RBC Auto #/vol (Bld) 5.23 E6/mcL Normal 3.90-6.10 [facility] Comment on above: Performed By: #### 2 [id number] ####HEATHER VudSlga4039 [place] [address] WBC Auto #/vol (Bld) 8.1 E3/mcL Normal 3.6-11.0 [facility] Comment on above: Performed By: #### 2 [id number] ####HEATHERHarmony RogersGzcQktx6221 [place] [id number] CT Abdomen/Pelvis w/o Contra ston 08-03-2017 CT [...] by: Blair Galvin MD Technologist: LILIAN Normal [facility] UA Completeon 08-03-2017 Color Nom (U) Keturah Abnormal Yellow [facility] Comment on above: Performed By: #### 8 [id number] ####HEATHER Urinalysis Automated Mxtgqmingy9110 [place] [address] Glucose mass conc (U) Negative Normal Negative [facility] Comment on above: Performed By: #### 8 [id number] ####HEATHER Urinalysis Automated [address] [place] [address] Ketones Ql (U) Trace Normal [facility] Comment on above: Performed By: #### 8 [id number] ####HEATHER Urinalysis Automated Zyunjnravs[address] [place] [address] RBC Test strip #/vol (U) /uL Abnormal 0-3 [facility] Comment on above: Performed By: #### 8 [id number] ####HEATHER Urinalysis Automated T[address]wshngij[address] [place] [address] UA Blood 3+ Normal Negative [facility] Comment on above: Result Comment: High concentration of Ascorbic Acid present in urine. This may cause False Negative Occ Blood. Review microscopic results and patient's clinical symptoms. Performed By: #### 8 [id number] ####HEATHER Urinalysis Automated Af[address]plghhhk[address] [place] [address] UA Ascorbic Acid 40 mg/dL High <=19 [facility] Comment on above: Performed By: #### 8 [id number] ####HEATHER Urinalysis Automated R[address]peovbqj[address] [place] [address] UA Clarity Cloudy Abnormal Clear [facility] Comment on above: Performed By: #### 8 [id number] ####HEATHER Urinalysis Automated Tvmoeqyube[address] [place] [address] UA Leuk Est Trace Normal Negative [facility] Comment on above: Performed By: #### 8 [id number] ####HEATHER Urinalysis Automated Kuynkuhztq4684 [place] [address] UA Mucous Many Abnormal Trace [facility] Comment on above: Performed By: #### 8 [id number] ####HEATHER Urinalysis Automated Eedhhdtbia[address] [place] [address] UA Nitrite Negative Normal Negative [facility] Comment on above: Performed By: #### 8 [id number] ####HEATHER Urinalysis Automated Yofdhscrnz[address] [place] [address] UA pH 5.0 Normal 4.6-8.0 [facility] Comment on above: Performed By: #### 8 [id number] ####HEATHER Urinalysis Automated Cloqkvpylh3889 [place] [address] UA Protein 2+ Abnormal Negative [facility] Comment on above: Performed By: #### 8 [id number] ####HEATHER Urinalysis Automated Qys[address]zdmihj[address] [place] [address] UA Spec Grav 1.019 Normal 1.003-1.030 [facility] Comment on above: Performed By: #### 8 [id number] ####HEATHER Urinalysis Automated Zbhimkaqlv[address] [place] [address] UA Urobilinogen Negative Normal [facility] Comment on above: Performed By: #### 8 [id number] ####HEATHER Urinalysis Automated N[address]jahzrwp[address] [place] [address] UA WBC >50 Abnormal 0-5 [facility] Comment on above: Performed By: #### 8 [id number] ####HEATHER Urinalysis Automated [address]lfskf[address] [place] [address] Urobilinogen Test strip Qn (U) Negative Normal Negative [facility] Comment on above: Performed By: #### 8 [id number] ####HEATHER Urinalysis Automated U[address]ilwfsdl[address] [place] [address] eGFRon 08-03-2017 eGFR AA >60 Normal [facility] Comment on above: Order Comment: Order added by Discern Expert. Performed By: #### 1 [id number] ####HEATHER IdnOnfk5484 [place] [id number] GFR/1.73 sq M predicted among non-blacks MDRD vol rate/area (S/P/Bld) mL/min/{1.73_m2} Normal [facility] Comment on above: Order Comment: Order added by Discern Expert. Performed By: #### 1 [id number] ####HEATHER OlnKdjf0868 [place] [id number] TSHon 05-19-2017 Thyrotropin Qn 0.86 mIU/m Normal 0.30-5.60 [facility] Comment on above: Performed By: #### 2 [id number] ####HEATHER JeaOulf5321 [place] [address] Vital Signs Date Time Vital Sign Value Performing Clinician Facility 05-05-2025 01:59-0400 Body temperature 96.91 [degF] Elicia Love DO Work Phone: [facility] 05-05-2025 01:59-0400 Diastolic blood pressure 75 mm[Hg] Elicia Batistaersen DO Work Phone: 0(308)985-097891 [place] [address] 05-05-2025 01:59-0400 Heart rate 67 /min Elicia Batistaersen DO Work Phone: 8(661)[phone] [place] [address] 05-05-2025 01:59-0400 Respiratory rate 16 /min Elicia Love DO Work Phone: 6(467)704-943068 [place] [address] 05-05-2025 01:59-0400 Systolic blood pressure 157 mm[Hg] Elicia Batistaersen DO Work Phone: 0(618)064-262368 [place] [address] 05-05-2025 01:58-0400 SaO2% (BldA) [Mass fraction] 96 % Elicia Batistaersen DO Work Phone: 2(836)303-250391 [place] [address] 05-04-2025 21:54-0400 Body height 175.3 cm Elicia Batistaersen DO Work Phone: 5(044)930-842768 [place] [address] 05-04-2025 21:54-0400 Body mass index (BMI) [Ratio] 35.44 kg/m2 Elicia Batistaersen DO Work Phone: 3(545)221-035891 [place] [address] 05-04-2025 21:54-0400 Body weight 108.86 kg Elicia Batistaersen DO Work Phone: [facility] 04-25-2025 17:15-0400 Body temperature 97.3 [degF] Dr. Jarad Rey MD Work Phone: [facility] 04-25-2025 17:15-0400 Diastolic blood pressure 85 mm[Hg] Dr. Jarad Rey MD Work Phone: [facility] 04-25-2025 17:15-0400 Heart rate 56 /min Dr. Jarad Rey MD Work Phone: [facility] 04-25-2025 17:15-0400 Respiratory rate 16 /min Dr. Jarad Rey MD Work Phone: [facility] 04-25-2025 17:15-0400 SaO2% (BldA) [Mass fraction] 100 % Dr. Jarad Rey MD Work Phone: [facility] 04-25-2025 17:15-0400 Systolic blood pressure 152 mm[Hg] Dr. Jarad Rey MD Work Phone: [facility] 04-25-2025 12:03-0400 Body height 175.[address] Jarad Rey MD Work Phone: [facility] 04-25-2025 12:03-0400 Body mass index (BMI) [Ratio] 36.1 kg/m2 Dr. Jarad Rey MD Work Phone: [facility] 04-25-2025 12:03-0400 Body weight [address] Jarad Rey MD Work Phone: [facility] 03-25-2025 22:58-0400 Diastolic blood pressure 99 mm[Hg] Zak Alvarez MD Work Phone: [facility] 03-25-2025 22:58-0400 Heart rate 58 /min Zak Alvarez MD Work Phone: [facility] 03-25-2025 22:58-0400 Respiratory rate 16 /min Zak Alvarez MD Work Phone: [facility] 03-25-2025 22:58-0400 SaO2% (BldA) [Mass fraction] 96 % Zak Alvarez MD Work Phone: [facility] 03-25-2025 22:58-0400 Systolic blood pressure 155 mm[Hg] Zak Alvarez MD Work Phone: [facility] 03-25-2025 21:41-0400 Body height 175.3 cm Zak Alvarez MD Work Phone: [facility] 03-25-2025 21:41-0400 Body mass index (BMI) [Ratio] 36.18 kg/m2 Zak Alvarez MD Work Phone: [facility] 03-25-2025 21:41-0400 Body temperature 97.59 [degF] Zak Alvarez MD Work Phone: [facility] 03-25-2025 21:41-0400 Body weight 111.13 kg Zak Alvarez MD Work Phone: [facility] 09-13-2024 10:56-0500 Body mass index (BMI) [Ratio] 35.29 kg/m2 Isabela Bazan MD Work Phone: 3(910)223-041906 [place] [address] 09-13-2024 10:56-0500 Body weight 108.41 kg Isabela Bazan MD Work Phone: 9(806)216-094523 [place] [address] 09-13-2024 10:56-0500 Diastolic blood pressure 90 mm[Hg] Isabela Bazan MD Work Phone: 9(976)821-641306 [place] [address] 09-13-2024 10:56-0500 Heart rate 61 /min Isabela Bazan MD Work Phone: 0(404)870-237506 [place] [address] 09-13-2024 10:56-0500 Systolic blood pressure 150 mm[Hg] Isabela Bazan MD Work Phone: [facility] 02-23-2024 11:08-0400 Body mass index (BMI) [Ratio] 34.11 kg/m2 Isabela Bazan MD Work Phone: 3(949)630-277606 [place] [address] 02-23-2024 11:08-0400 Body weight 104.78 kg Isabela Bazan MD Work Phone: 3(782)577-736706 [place] [address] 02-23-2024 11:08-0400 Respiratory rate 16 /min Isabela Bazan MD Work Phone: 9(446)958-573623 [place] [address] 11-15-2023 15:27-0400 Body mass index (BMI) [Ratio] 33.97 kg/m2 Isabela Bazan MD Work Phone: [facility] 11-15-2023 15:27-0400 Body weight 104.33 kg Isabela Bazan MD Work Phone: [facility] 11-15-2023 15:27-0400 Respiratory rate 16 /min Isabela Bazan MD Work Phone: [facility] 11-09-2023 21:02-0400 Diastolic blood pressure 71 mm[Hg] Jarad Rey MD Work Phone: [facility] 11-09-2023 21:02-0400 Heart rate 74 /min Jarad Rey MD Work Phone: [facility] 11-09-2023 21:02-0400 Respiratory rate 16 /min Jarad Rey MD Work Phone: [facility] 11-09-2023 21:02-0400 SaO2% (BldA) [Mass fraction] 95 % Jarad Rey MD Work Phone: [facility] 11-09-2023 21:02-0400 Systolic blood pressure 121 mm[Hg] Jarad Rey MD Work Phone: [facility] 11-09-2023 18:33-0400 Body height 175.3 cm Jarad Rey MD Work Phone: [facility] 11-09-2023 18:33-0400 Body mass index (BMI) [Ratio] 33.97 kg/m2 Jarad Rey MD Work Phone: [facility] 11-09-2023 18:33-0400 Body temperature 98.29 [degF] Jarad Rey MD Work Phone: [facility] 11-09-2023 18:33-0400 Body weight 104.33 kg Jarad Rey MD Work Phone: [facility] 11-01-2023 10:15-0500 Body weight 107.05 kg Isabela Bazan MD Work Phone: [facility] 10-07-2023 10:21-0500 Body weight 107.05 kg Isabela Bazan MD Work Phone: [facility] 10-07-2023 10:21-0500 Respiratory rate 16 /min Isabela Bazan MD Work Phone: [facility] 02-17-2021 20:57-0400 Body height 175.3 cm Oscar Dickens MD Work Phone: [facility] Work Phone: 02-17-2021 20:57-0400 Body mass index (BMI) [Ratio] 34.7 kg/m2 Oscar Dickens MD Work Phone: [facility] Work Phone: 02-17-2021 20:57-0400 Body temperature 98.8 [degF] Oscar Dickens MD Work Phone: [facility] Work Phone: 02-17-2021 20:57-0400 Body weight 106.59 kg Oscar Dickens MD Work Phone: [facility] Work Phone: 02-17-2021 20:57-0400 Diastolic blood pressure 82 mm[Hg] Oscar Dickens MD Work Phone: [facility] Work Phone: 02-17-2021 20:57-0400 Heart rate 63 /min Oscar Dickens MD Work Phone: [facility] Work Phone: 02-17-2021 20:57-0400 Respiratory rate 16 /min Oscar Dickens MD Work Phone: [facility] Work Phone: 02-17-2021 20:57-0400 SaO2% (BldA) [Mass fraction] 96 % Oscar Dickens MD Work Phone: [facility] Work Phone: 02-17-2021 20:57-0400 Systolic blood pressure 145 mm[Hg] Oscar Dickens MD Work Phone: [facility] Work Phone: 09-14-2019 09:55-0500 Diastolic blood pressure 63 mm[Hg] Familia Oliva MD Work Phone: [facility] Work Phone: 09-14-2019 09:55-0500 Heart rate 65 /min Familia Oliva MD Work Phone: [facility] Work Phone: 09-14-2019 09:55-0500 Respiratory rate 16 /min Familia Oliva MD Work Phone: [facility] Work Phone: 09-14-2019 09:55-0500 SaO2% (BldA) [Mass fraction] 95 % Familia Oliva MD Work Phone: [facility] Work Phone: 09-14-2019 09:55-0500 Systolic blood pressure 135 mm[Hg] Familia Oliva MD Work Phone: [facility] Work Phone: 09-14-2019 09:30-0500 Body temperature 97.59 [degF] Familia Oliva MD Work Phone: [facility] Work Phone: 09-14-2019 07:16-0500 Body height 175.3 cm Familia Oliva MD Work Phone: [facility] Work Phone: 09-14-2019 07:16-0500 Body mass index (BMI) [Ratio] 34.7 kg/m2 Familai Oliva MD Work Phone: [facility] Work Phone: 09-14-2019 07:16-0500 Body weight 106.59 kg Familia Oliva MD Work Phone: [facility] Work Phone: 05-19-2017 14:04-0400 BMI (Body Mass Index) 32.93 kg/m2 Trace [facility] Work Phone: 05-19-2017 14:04-0400 BP Diastolic 72 mm[Hg] [facility] Work Phone: 05-19-2017 14:04-0400 BP Systolic 125 mm[Hg] [facility] Work Phone: 05-19-2017 14:04-0400 Height 175.3 cm [facility] Work Phone: 05-19-2017 14:04-0400 Pulse (Heart Rate) 49 /min [facility] Work Phone: 05-19-2017 14:04-0400 Pulse Oximetry 96 % [facility] Work Phone: 05-19-2017 14:04-0400 Weight 101.15 kg Trace Barreto [facility] Work Phone: Encounters Encounter Date Encounter Type Care Provider Facility Start: 05-04-2025 End: 05-05-2025 Emergency department patient visit Eliica Love DO Work Phone: [facility] Emergency Medicine Comment on above: Ureteral calculus (P rimary Dx) Start: 04-25-2025 End: 04-25-2025 Admission to same day surgery center Dr. Harjit Lam MD -[facility] Start: 04-25-2025 End: 04-25-[address] Jarad Rey MD Work Phone: -[facility] Start: 04-10-2025 End: 04-10-[address] Jarad Rey MD Work Phone: -Radiology [facility] Start: 04-10-2025 End: 04-10-2025 Patient encounter procedure Melba Barr -Radiology [facility] Work Phone: Start: 04-09-2025 End: 04-11-2025 ambulatory [facility] Start: 04-09-2025 End: 04-11-2025 Subsequent hospital visit by physician Kaylynn Ashton MD Work Phone: [facility] Ultrasound Comment on above: Gallbladder polyp Start: 03-25-2025 End: 03-26-2025 Emergency department patient visit Zak Alvarez MD Work Phone: [facility] Emergency Medicine Comment on above: Hemorrhagic cystitis (Primary Dx) Start: 09-13-2024 End: 09-13-2024 Office outpatient visit 25 minutes Isabela Bazan MD Work Phone: [facility] Comment on above: History of kidney st ones; Benign prostatic hyperplasia with lower urinary tract symptoms, symptom details unspecified; Nocturia Start: 09-13-2024 End: 09-13-2024 Subsequent hospital visit by physician German Acevedo X-Ray [facility] Comment on above: History of kidney st ones Start: 09-13-2024 End: 09-13-2024 ambulatory [facility] Ambulatory Start: 06-26-2024 End: 06-26-2024 ambulatory [facility] Start: 06-26-2024 End: 06-26-2024 Encounter for general adult medical examination without abnormal findings [facility] Start: 06-26-2024 End: 06-26-2024 Patient encounter procedure Jarda Rey MD Work Phone: [facility] Start: 06-26-2024 End: 06-26-2024 Subsequent hospital visit by physician Jarad Rey MD Work Phone: [facility] Comment on above: Encounter for annual wellness exam in Medicare patient Start: 02-23-2024 End: 02-23-2024 Office outpatient visit 25 minutes Isabela Bazan MD Work Phone: [facility] Comment on above: Benign prostatic hyp erplasia with lower urinary tract symptoms, symptom details unspecified (Primary Dx); History of kidney stones; Nocturia Start: 02-23-2024 End: 02-23-2024 Subsequent hospital visit by physician German Acevedo X-Ray [facility] Comment on above: History of kidney st ones Start: 02-23-2024 End: 02-23-2024 ambulatory [facility] Amb[facility] Start: 12-16-2023 End: 12-16-2023 Office outpatient visit 25 minutes Isabela Bazan MD Work Phone: [facility] Comment on above: History of kidney st ones; Nocturia; Benign prostatic hyperplasia with lower urinary tract symptoms, symptom details unspecified Start: 12-16-2023 End: 12-16-2023 ambulatory [facility] Start: 11-15-2023 End: 11-15-2023 Office outpatient visit 25 minutes Isabela Bazan MD Work Phone: [facility] Comment on above: Benign prostatic hyp erplasia with lower urinary tract symptoms, symptom details unspecified; Dysuria; History of kidney stones; Nocturia; Retention of urine Start: 11-15-2023 End: 11-15-2023 [facility] Ambulatory Start: 11-10-2023 End: 11-10-2023 Office outpatient visit 25 minutes Isabela Bazan MD Work Phone: [facility] Comment on above: Nocturia; Dysuria; Benign prostatic hyperplasia with lower urinary tract symptoms, symptom details unspecified Start: 11-10-2023 End: 11-10-2023 ambulatory [facility] Start: 11-09-2023 End: 11-09-2023 Emergency department patient visit Jarad Rey MD Work Phone: [facility] Emergency Medicine Comment on above: Urinary retention (P rimary Dx); Urinary tract infection with hematuria, site unspecified Start: 11-08-2023 End: 11-09-2023 [facility] Start: 11-08-2023 End: 11-08-2023 Phys/qhp telephone evaluation 11-20 min Isabela Bazan MD Work Phone: [facility] Comment on above: Nocturia; Benign prostatic hyperplasia with lower urinary tract symptoms, symptom details unspecified; History of kidney stones; Dysuria Start: 11-08-2023 End: 11-08-2023 ambulatory [facility] Start: 11-01-2023 End: 11-01-2023 Patient encounter procedure Isabela Bazan MD Work Phone: [facility] Comment on above: Hematuria, unspecifi ed type (Primary Dx) Start: 11-01-2023 End: 11-01-2023 [facility] Ambulatory Start: 10-07-2023 End: 10-08-2023 [facility] Start: 10-07-2023 End: 10-07-2023 Subsequent hospital visit by physician German Hdez X-Ray [facility] Comment on above: History of kidney st ones Start: 10-07-2023 End: 10-07-2023 Office outpatient new 45 minutes Isabela Bazan MD Work Phone: [facility] Comment on above: Benign prostatic hyp erplasia with lower urinary tract symptoms, symptom details unspecified; Nocturia; History of kidney stones Start: 10-07-2023 End: 10-07-2023 ambulatory [facility] Ambulatory Start: 08-17-2023 End: 08-17-2023 ambulatory [facility] Start: 12-29-2022 End: 01-02-2023 ambulatory [facility] Start: 06-15-2022 End: 06-15-2022 Subsequent hospital visit by physician Jarad Rey MD Work Phone: [facility] Start: 04-02-2022 End: 04-04-2022 Subsequent hospital visit by physician Serrano X-Ray Room 1 [facility] Radiology Comment on above: SOB (shortness of br eath) Start: 04-02-2022 End: 04-04-2022 Subsequent hospital visit by physician Jarad Rey MD Work Phone: [facility] Comment on above: SOB (shortness of br eath) Start: 01-05-2022 Patient encounter procedure Jarad Rey Work Phone: [facility] Work Phone: Start: 07-03-2021 End: 07-03-2021 [...] physician Adina Nuc Med Injection Room 1 [facility] Nuclear Medicine Comment on above: THURMAN (dyspnea on exer tion) Start: 02-17-2021 End: 02-17-2021 Emergency department patient visit Oscar Dickens MD Work Phone: [facility] ED Comment on above: Right [...] hospital visit by physician Noel Ekg Anastacio [facility] Cardiopulmonary Department Comment on above: PVC (premature ventr icular contraction) Start: 05-24-2018 End: 05-24-2018 Patient encounter ESA CASTAÑEDA Facility:[id number] Start: 05-04-2018 Patient encounter Esa Castañeda Fac ility:[facility] Start: 05-04-2018 Patient encounter Esa Dickenscatalinasabrina Fac ility:[facility] Start: 04-26-2018 Patient encounter JUSTUS Hector ity:[facility] Start: 04-26-2018 End: 04-26-2018 Patient encounter Aramis Beaulieu Facility:[facility] Start: 01-05-2018 End: 01-06-2018 Patient encounter Isabela Bazan [facility] Start: 12-09-2017 End: 12-10-2017 Patient encounter Aramis Beaulieu Facility:[facility] Start: 10-26-2017 End: 10-26-2017 Patient encounter Aramis Beaulieu Facility:[facility] Start: 10-25-2017 End: 10-26-2017 Patient encounter Aramis Beaulieu Facility:[facility] Start: 10-15-2017 Patient encounter ARAMIS uRth acility:[facility] Start: 10-06-2017 End: 10-07-2017 Patient encounter Isabela Bazan [facility] Start: 09-28-2017 End: 09-28-2017 Patient encounter Isabela Bazan Facility:[facility] Start: 09-10-2017 End: 09-11-2017 Patient encounter Isabela Bazan [facility] Start: 08-20-2017 End: 08-20-2017 Patient encounter Aramis Beaulieu Facility:[facility] Start: 08-19-2017 End: 08-20-2017 Patient encounter Isabela Bazan Facility:[facility] Start: 08-11-2017 End: 08-12-2017 Patient encounter Isabela Bazan Facility:[facility] Start: 08-10-2017 End: 08-10-2017 Emergency department patient visit Aramis Beaulieu Facility:[facility] Start: 08-06-2017 End: 08-06-2017 Patient encounter Aramis Beaulieu Facility:[facility] Start: 08-03-2017 End: 08-03-2017 Emergency department patient visit Aramis Beaulieu Facility:[facility] Start: 06-28-2017 Ambulatory [facility] Start: 05-26-2017 Ambulatory [facility] Start: 05-19-2017 End: 05-25-2017 Ambulatory [facility] Start: 05-19-2017 Office [facility] Work Phone: [facility] Start: 06-10-2015 Refill Pat edouard [employer] 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 Work Phone: [facility] Comment on above: Medication Refill Start: 06-03-2015 Refill Briana Gan [employer] 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 Work Phone: [facility] Comment on above: [...] cancer screen colonoscopy Colon cancer screen colonoscopy [facility] Work Phone: Start: 09-14-2029 Screening for malign ant neoplasm of colon [facility] Start: 08-17-2028 Screening for malign ant neoplasm [facility] Start: 06-26-2027 Diabetes screen Diabetes screen [facility] Start: 06-11-2026 Diabetes screen Diabetes screen [facility] Start: 01-16-2026 End: 01-16-2026 Patient encounter procedure 01/16/2026 10:30 AM EDT Office Visit [facility] Pulmonology [address] [facility] [address] [facility] [address] [place] [address] George Hernandez MD [address] [place] [address] 9M FU [facility] Pulmonology Comment on above: 9M FU Start: 07-12-2025 End: 07-12-2025 Patient encounter procedure 07/12/2025 12:30 PM EST Office Visit [facility] Cardiology [address] [place] [address] Justin Espinoza MD [address] [place] [address] 6 month follow up [facility] Cardiology Comment on above: 6 month follow up Start: 06-27-2025 Annual Wellness Visi t (Medicare) Annual Wellness Visit (Medicare) [facility] Start: 06-27-2025 End: 06-27-2025 Patient encounter procedure 06/27/2025 1:00 PM EDT Office Visit [facility] [address] [place] [address] Jarad Rey MD [address] [place] [address] awv [facility] Comment on above: awv Start: 06-26-2025 Lipid panel Lipids [facility] Start: 06-25-2025 Depression Screen Depression Screen [facility] Start: 04-30-2025 COVID-19 Vaccine ( season) COVID-19 Vaccine ( season) [facility] Start: 04-30-2025 Influenza vaccination Influenza Vacc ine (#1) [facility] Start: 04-26-2025 End: 04-26-2025 Patient encounter procedure 04/26/2025 10:30 AM EDT Office Visit [facility] General Surgery [address] [place] [address] Kaylynn Ashton MD [address] [place] [id number] 1 yr GB [facility] General Surgery Comment on above: 1 yr RUST Start: 04-25-2025 Ambulation without limitation [facility] Start: 04-25-2025 Medical regimen orde rs management [facility] Start: 04-25-2025 Medication education [facility] Start: 04-25-2025 Patient discharge [facility] Start: 04-25-2025 Taking patient vital signs [facility] Start: 04-25-2025 [facility] Start: 04-25-2025 Plain X-ray abdomen Abdomen Single V iew [facility] Start: 04-25-2025 XR Abdomen Single view [facility] Start: 03-30-2025 Influenza vaccination Flu vaccine (# 1) [facility] Start: 10-07-2024 Prostate specific antigen measurement PSA Prostate Cancer Screening [facility] Start: 09-20-2024 End: 09-20-2024 Patient encounter procedure 09/20/2024 10:45 AM EST Office Visit [facility] [address] [place] [id number] Isabela Bazan MD [address] [place] [address] [facility] Start: 09-13-2024 End: 09-13-2025 Basic metabolic 2000 panel - Serum or Plasma Basic Metabolic Panel Lab Routine Nocturia Expected: 09/13/2024 (Approximate), Expires: 09/13/2025 [facility] Work Phone: Comment on above: Expected: 09/13/2024 (Approximate), Expires: 09/13/2025 Start: 09-13-2024 End: 09-13-2025 Prostate specific Ag [Mass/volume] in Serum or Plasma Prostate Specific Antigen Lab Routine Nocturia Expected: 09/13/2024 (Approximate), Expires: 09/13/2025 [facility] Work Phone: Comment on above: Expected: 09/13/2024 (Approximate), Expires: 09/13/2025 Start: 09-13-2024 End: 09-13-2025 US Kidney - bilateral and Urinary bladder US renal complete Imaging Routine History of kidney stones Expected: 09/13/2024 (Approximate), Expires: 09/13/2025 [facility] Work Phone: Comment on above: Expected: 09/13/2024 (Approximate), Expires: 09/13/2025 Start: 07-30-2024 End: 02-22-2025 XR Abdomen Single view XR abdomen 1 view Imaging Routine History of kidney stones Expected: 07/30/2024, Expires: 02/22/2025 [facility] Work Phone: Comment on above: Expected: 07/30/2024 , Expires: 02/22/2025 Start: 07-05-2024 End: 07-05-2024 Patient encounter procedure 07/05/2024 10:00 AM EST Office Visit [facility]mon[facility] [address] [facility] [address] [place] [address] George Hernandez MD [address] [place] [address] 9M F/U [facility] Pulmon[facility] Comment on above: 9M F/U Start: 06-29-2024 End: 06-29-2024 Patient encounter procedure 06/29/2024 9:45 AM EDT Office Visit [facility] Cardiology [address] [place] [address] Justin Espinoza MD [address] [place] [address] 6 month follow up [facility] Cardiology Comment on above: 6 month follow up Start: 06-12-2024 Diabetes screen Diabetes screen [facility] Start: 06-12-2024 End: 06-12-2024 Patient encounter procedure 06/12/2024 10:15 AM EDT Office Visit [facility] [address] [facility] [address] [place] [address] Isabela Bazan MD [address] [place] [address] [facility] Start: 06-11-2024 [facility] Start: 05-15-2024 End: 05-15-2024 Patient encounter procedure 05/15/2024 10:00 AM EDT Office Visit [facility] [address] [place] [address] Isabela Bazan MD [address] [place] [address] [facility] Start: 04-30-2024 COVID-19 Vaccine ( season) COVID-19 Vaccine ( season) [facility] Start: 04-30-2024 COVID-19 Vaccine ( season) COVID-19 Vaccine ( season) [facility] Start: 04-30-2024 Influenza vaccination [facility] Start: 03-30-2024 Influenza vaccination Flu vaccine (# 1) [facility] Start: 02-23-2024 End: 02-23-2024 Patient encounter procedure 02/23/2024 10:45 AM EDT Office Visit [address] [place] [address] Isabela Bazan MD [facility] [place] [address] [facility] Start: 12-16-2023 End: 12-16-2023 Patient encounter procedure 12/16/2023 3:30 PM EDT Office Visit [facility] [address] [place] [address] Isabela Bazan MD [facility] [place] [address] [facility] Start: 11-15-2023 End: 11-15-2023 Patient encounter procedure 11/15/2023 3:00 PM EDT Office Visit [facility] [address] [place] [address] Isabela Bazan MD [facility] [place] [address] [facility] Start: 11-10-2023 End: 11-10-2023 Telemedicine consultation with patient 11/10/2023 10:45 AM EDT Telemedicine [address] [place] [phone] Isabela Bazan MD [address] [place] [address] [facility] Start: 11-08-2023 End: 11-15-2023 Bacteria identified in Urine by Culture Urine Culture Microbiology Routine Dysuria Expected: 11/08/2023 (Approximate), Expires: 11/15/2023 [facility] Work Phone: Comment on above: Expected: 11/08/2023 (Approximate), Expires: 11/15/2023 Start: 11-01-2023 End: 11-01-2023 Patient encounter procedure 11/01/2023 10:00 AM EST Procedure Visit [facility] [address] [place] [address] [facility] Start: 10-07-2023 End: 10-07-2024 Prostate specific Ag [Mass/volume] in Serum or Plasma [facility] Work Phone: Comment on above: Expected: 10/07/2023 (Approximate), Expires: 10/07/2024 Start: 10-07-2023 End: 10-07-2024 XR Abdomen Single view [facility] Work Phone: Comment on above: Expected: 10/07/2023 (Approximate), Expires: 10/07/2024 Once for 1 Occurrenc es starting 10/07/2023 until 10/07/2023 Start: 06-10-2023 Diabetes screen Diabetes screen [facility] Work Phone: Start: 05-09-2023 Lipid screen Lipid screen [facility] [place] [place] Start: 04-30-2023 COVID-19 Vaccine ( season) COVID-19 Vaccine ( season) [facility] Start: 04-30-2023 Influenza vaccination Influenza Vacc ine (#1) [facility] Start: 04-02-2023 Depression Screen Depression Screen [facility] Start: 07-08-2022 End: 07-08-2022 Patient encounter procedure 07/08/2022 Office Visit Pulmonology George Hernandez MD [address] [place] [address] [facility] Start: 06-30-2022 End: 06-30-2022 Patient encounter procedure 06/30/2022 Office Visit Cardiology Justin Espinoza MD [address] [place] [address] [facility] Cardiology Start: 06-24-2022 Creatinine [facility] [employer] Work Phone: Start: 06-24-2022 Potassium monitoring Potassium monit ori [employer] Work Phone: Start: 06-15-2022 Annual Wellness Visi t (AWV) Annual Wellness Visit (AWV) [facility] [employer] Start: 06-15-2022 End: 06-15-2022 Patient encounter procedure [facility] [facility] Start: 06-12-2022 Lipid panel [facility] [employer] Start: 06-12-2022 Prostate specific antigen measurement Prostate Specific Antigen (PSA) Screening or Monitoring [facility] [employer] Start: 06-11-2022 End: 06-11-2022 Patient encounter procedure 06/11/2022 Office Visit Cardiology Justin Espinoza MD [address] [place] [address] [facility] Cardiology Start: 04-30-2022 Influenza vaccination B [employer] Start: 04-20-2022 End: 04-20-2022 Patient encounter procedure 04/20/2022 Appointment Pulmonary Function Testing [facility] Start: 03-30-2022 Influenza vaccination Flu vaccine (# 1) [facility] [employer] Start: 2021 Fall risk assessment Falls Risk Asse [facility] Start: 2021 Pneumococcal 65+ yea rs Vaccine (1 - PCV) Pneumococcal 65+ years Vaccine (1 - PCV) [facility] [employer] Start: 2021 Pneumococcal Vaccine : 65+ Years (1 - PCV) Pneumococcal Vaccine: 65+ Years (1 - PCV) [facility] Start: 2021 Pneumococcal Vaccine : 65+ Years (1 of 1 - PCV) Pneumococcal Vaccine: 65+ Years (1 of 1 - PCV) [facility] Start: 2021 Pneumococcal Vaccine : Age 65+ (1 - PCV) Pneumococcal Vaccine: Age 65+ (1 - PCV) [facility] Start: 10-16-2021 End: 10-16-2021 Patient encounter procedure 10/16/2021 Office Visit Cardiology Justin Espinoza MD [address] [facility] [address] [place] [address] [phone] [facility] Cardiology Start: 07-10-2021 End: 07-10-2021 Patient encounter procedure 07/10/2021 Appointment Radiology [facility] Ultrasound Start: 07-07-2021 End: 07-07-2021 Patient encounter procedure 07/07/2021 Office Visit Cardiology Justin Espinoza MD [address] [place] [address] [phone] [facility] Cardiology Start: 06-10-2021 Creatinine measurement Creatinine mo nitoring [facility] [employer] Phone: Start: 06-10-2021 Lipid panel Lipid screen [facility] [employer] Phone: Start: 06-10-2021 Potassium monitoring Potassium monit oring [facility] [employer] Phone: Start: 04-30-2021 Influenza vaccination [facility] [employer] Phone: Start: 03-06-2021 End: 03-06-2021 Patient encounter procedure 03/06/2021 Office Visit Cardiology Justin Espinoza MD [address] [place] [address] [phone] [facility] Cardiology Start: 02-27-2021 End: 02-27-2021 Patient encounter procedure [facility] Start: 05-15-2020 Creatinine measurement Creatinine mo nitoring [place], [place] Start: 05-15-2020 Creatinine monitoring Creatinine mon [facility] Work Phone: Start: 05-15-2020 Lipid panel Lipid screen [place], [place] Start: 05-15-2020 Lipid screen Lipid screen [facility] Work Phone: Start: 05-15-2020 Potassium monitoring Potassium monit [facility] Work Phone: Start: 04-30-2020 Influenza vaccination Flu vaccine (# 1) [place], [place] Start: 06-07-2019 End: 06-07-2019 Office Visit 06/07/2019 Office Visit Cardiology Brain Freedman MD [address] [facility] [address] [place] [address] [phone] [facility] Cardiology Start: 05-15-2019 End: 05-15-2019 Office Visit 05/15/2019 Office Visit Family Medicine Jarad Rey MD [address] [place], [place] [id number] [facility] Start: 05-09-2019 Creatinine monitoring Creatinine mon [place], [place] Start: 05-09-2019 Potassium monitoring Potassium monit [place], [place] Start: 04-30-2019 Influenza vaccination Flu vaccine (# 1) [place], [place] Start: 04-30-2017 Influenza vaccination SEQUENTI AL INFLUENZA VACCINE (#1) [facility] Work Phone: Start: 2016 Hepatitis B Vaccines (1 of 3 - Risk 3-dose series) Hepatitis B Vaccines (1 of 3 - Risk 3-dose series) [facility] Start: 2016 Respiratory Syncytia l Virus (RSV) or age 60 yrs+ (1 - 1-dose 60+ series) Respiratory Syncytial Virus (RSV) or age 60 yrs+ (1 - 1-dose 60+ series) [facility] Start: 2016 Respiratory Syncytia l Virus (RSV) or age 60 yrs+ (1 - Risk 60-74 years 1-dose series) Respiratory Syncytial Virus (RSV) or age 60 yrs+ (1 - Risk 60-74 years 1-dose series) [facility] Start: 2016 RSV High Risk: (Elde rly (60+) or Population) (1 - Risk 60-74 years 1-dose series) RSV High Risk: (Elderly (60+) or Population) (1 - Risk 60-74 years 1-dose series) [facility] Start: 2016 RSV patient s and/or patients aged 60+ years (1 - 1-dose 60+ series) RSV patients and/or patients aged 60+ years (1 - 1-dose 60+ series) [facility] Start: 2016 Zoster vaccine hzv l sangita for subcutaneous use ZOSTER VACCINE [facility] Work Phone: Start: 2006 Administration of he rpes zoster vaccine Zoster Vaccines (1 of 2) [facility] Start: 2006 Colon cancer screen colonoscopy Colon cancer screen colonoscopy [place], [place] Start: 2006 Pneumococcal vaccination Pneum ococcal Vaccine (1 of 1 - PCV) [facility] Start: 2006 Shingles Vaccine (1 of 2) Shingles Vaccine (1 of 2) [facility] Start: 2006 Zoster Vaccines (1 of 2) Zoste r Vaccines (1 of 2) [facility] Start: 2001 Screening for malign ant neoplasm of colon [facility] Start: 1978 DTaP/Tdap/Td Vaccine s (1 - Tdap) DTaP/Tdap/Td Vaccines (1 - Tdap) [facility] Start: 12-03-1975 DTaP/Tdap/Td vaccine (1 - Tdap) DTaP/Tdap/Td vaccine (1 - Tdap) [facility] Start: 12-03-1975 Hepatitis A Vaccines (1 of 2 - Risk 2-dose series) Hepatitis A Vaccines (1 of 2 - Risk 2-dose series) [facility] Start: 12-03-1975 Pneumococcal 50+ yea rs Vaccine (1 of 2 - PCV) Pneumococcal 50+ years Vaccine (1 of 2 - PCV) [facility] [employer] Start: 1974 Diabetes mellitus screening Diabetes Screening [facility] Start: 1974 Hepatitis C screening Hepatitis C [facility] Start: 12-03-1971 HIV screening HIV Screening [facility] Start: 1968 COVID-19 Vaccine (1) COVID-19 Vaccin e (1) [facility] Phone: Start: 1968 Depression screening using PHQ-9 (Patient Health Questionnaire 9) score Depression Screening (PHQ-2/9) [facility] Start: 12-03-1967 DTaP/Tdap/Td vaccine (1 - Tdap) DTaP/Tdap/Td vaccine (1 - Tdap) [facility] Phone: Start: 1962 Pneumococcal 65+ yea rs Vaccine (1 - PCV) Pneumococcal 65+ years Vaccine (1 - PCV) [facility] [employer] Start: 1962 Pneumococcal 65+ yea rs Vaccine (1 of 2 - PCV) Pneumococcal 65+ years Vaccine (1 of 2 - PCV) [facility] Start: 12-03-1959 History and physical examination, annual for health maintenance Wellness Visit [facility] Start: 1957 MMR Vaccines (1 of 1 - Standard series) MMR Vaccines (1 of 1 - Standard series) [facility] Start: 06-03-1957 COVID-19 Vaccine (#1) COVID-19 Vacci ne (#1) [facility] [employer] Start: 1956 Lipid panel Lipid Panel [facility] Start: 1956 Medicare Annual Well ness Visit Medicare Annual Wellness Visit (AWV) [facility] Start: 1956 Prostate specific antigen measurement PSA Level [facility] Start: 1956 Screening for malign ant neoplasm of colon [facility] Start: 1956 Yearly Adult Physical Yearly Adult P hysical [facility] Start: 1956 HEPATITIS C SCREENING [facility]PATITIS C [facility] Work Phone: Start: 04-05-1957 Screening colonoscopy [facility] Work Phone: Start: 1956 End: 1956 Tetanus vaccination [facility] End: 11-09-2023 Bacteria identified in Urine by Culture [facility] Work Phone: Comment on above: Once (Lab) for 1 Occ urrences starting 11/09/2023 until 11/09/2023 End: 03-25-2025 Bacteria identified in Urine by Culture [facility] Work Phone: Comment on above: Once (Lab) for 1 Occ urrences starting 03/25/2025 until 03/25/2025 End: 05-04-2025 Bacteria identified in Urine by Culture [facility] Work Phone: Comment on above: Once (Lab) for 1 Occ urrences starting 05/04/2025 until 05/04/2025 End: 11-09-2023 Extra Urine [employer] Extra Urine [facility] Lab Timed Once for 1 Occurrences starting 11/09/2023 until 11/09/2023 [facility] Work Phone: Comment on above: Once for 1 Occurrenc es starting 11/09/2023 until 11/09/2023 End: 03-25-2025 Extra Urine [employer] Extra Urine [employer] Lab Timed Once for 1 Occurrences starting 03/25/2025 until 03/25/2025 [facility] Work Phone: Comment on above: Once for 1 Occurrenc es starting 03/25/2025 until 03/25/2025 End: 05-04-2025 Extra Urine [facility] Extra Urine [facility] Timed Once for 1 Occurrences starting 05/04/2025 until 05/04/2025 [facility] Work Phone: Comment on above: Once for 1 Occurrenc es starting 05/04/2025 until 05/04/2025 End: 06-26-2024 Hemoglobin A1c/Hemoglobin.total in Blood [facility] Comment on above: 1 Occurrences starti ng 06/26/2024 until 06/26/2024 End: 05-08-2019 Holter monitor 24 hour Holter monitor 24 hour Cardiac Services Routine PVC (premature ventricular contraction) 1 Occurrences starting 05/08/2019 until 05/08/2019 [facility] [place] [place] Comment on above: 1 Occurrences starti ng 05/08/2019 until 05/08/2019 Initiate Oxygen Ther apy Protocol Initiate Oxygen Therapy Protocol Respiratory Care Routine Daily until discontinued starting 09/14/2019 [facility] Work Phone: Comment on above: Daily until disconti nued starting 09/14/2019 Phase I & II - meter ed glucose Phase I & II - metered glucose Point of Care Testing Routine As Needed until discontinued starting 09/14/2019 [facility] Work Phone: Comment on above: As Needed until disc ontinued starting 09/14/2019 End: 11-09-2023 Urinalysis complete W Reflex Culture panel - Urine [facility] Work Phone: Comment on above: STAT (Lab) for 1 Occ urrences starting 11/09/2023 until 11/09/2023 End: 03-25-2025 Urinalysis complete W Reflex Culture panel - Urine [facility] Work Phone: Comment on above: Once (Lab) for 1 Occ urrences starting 03/25/2025 until 03/25/2025 End: 05-04-2025 Urinalysis complete W Reflex Culture panel - Urine [facility] Work Phone: Comment on above: STAT (Lab) for 1 Occ urrences starting 05/04/2025 until 05/04/2025 End: 09-13-2024 XR Abdomen Single view [facility] Work Phone: Comment on above: Once for 1 Occurrenc es starting 09/13/2024 until 09/13/2024 End: 02-17-2021 XR HAND RIGHT (MIN 3 VIEWS) XR HAND RIGHT (MIN 3 VIEWS) Imaging STAT Once for 1 Occurrences starting 02/17/2021 until 02/17/2021 [facility] Work Phone: Comment on above: Once for 1 Occurrenc es starting 02/17/2021 until 02/17/2021 XR HAND RIGHT (MIN 3 VIEWS) XR HAND RIGHT (MIN 3 VIEWS) Imaging STAT 02/17/2021 9:12 PM EDT [facility] Phone: Payers Date Payer Category Payer Self-pay 2021 Blue [employer] Blue Shijemma ld Managed Care [facility] [id number]. [id number] 2021 Medicare [id number] 1.13.647.2. [id number] 2021 Medicare [id number] 1.2.840.387970.1.13.239.2. [id number] 2021 Unknown [id number] 1.2.840.410001.1.13.239.2. 7.3.148754.315 2017 Unknown [employer] JHONY - EXCHANGE xxxxxxxxxxxx 2017-Present [phone] [address] [place] [address] xxxxxxxxxxxx 1.2.840.972287.1.13.239.2. 7.3.265651.315 2017 Unknown 2015 Unknown [id number] 2.16.840.1.285261.3.249.13 1956 Unknown [id number] 2.16.840.1.459751.3.579.2. 903 1955 Unknown [id number] 2.16.840.1.972945.3.579.2. 182 1956 Unknown [id number] 2.16.840.1.210589.3.579.2. 1244 1956 Unknown [id number] 2.16.840.1.539665.3.579.2. 1244 1956 Unknown [id number] 2.16.840.1.171552.3.579.2. 1243 1956 Unknown [id number] 2.16.840.1.812254.3.579.2. 1243 1956 Unknown [id number] 2.16.840.1.317724.3.579.2. 1243 1956 Unknown [id number] 2..840.1.140934.3.579.2. 1243 1956 Unknown [id number] 2.840.1.152184.3.579.2. 1243 1956 Unknown [id number] 2.16.840.1.068525.3.579.2. 1243 1956 Unknown [id number] 2..840.1.557342.3.579.2. 1243 1956 Unknown [id number] 2..840.1.720263.3.579.2. 1243 1956 Unknown [id number] 2..840.1.349701.3.579.2. 1242 1956 Unknown [id number] 2.16.840.1.310478.3.579.2. 1242 1956 Unknown [id number] 2.16.840.1.217796.3.579.2. 185 1955 Unknown [id number] 2.16.840.1.710390.3.579.2. 185 Unknown [id number] 2.16.840.1.665867.3.579.2. 462 Unknown [id number] 2.16.840.1.901704.3.579.2. 462 Social History Date Type Detail Facility Start: 05-19-2017 End: 10-07-2023 Tobacco smoking status NHIS Never smoker [facility] Start: 1955 Sex Assigned At Not on file [facility] Work Phone: Start: 10-12-2018 End: 05-04-2025 Alcohol intake No [facility] Start: 06-10-2020 End: 10-07-2023 Tobacco use and exposure Never used [facility] Start: 06-10-2020 End: 06-15-2022 Alcohol intake Current non-drinker of alcohol (finding) [facility] Work Phone: Start: 09-27-2023 End: 09-13-2024 Exposure to SARS-CoV-2 (event) Not sure [facility] Start: 06-12-2021 End: 06-15-2022 History SDOH Financial 5 [facility] Work Phone: Start: 06-12-2021 End: 06-15-2022 History SDOH Food Worry 1 [facility] Work Phone: Tobacco smoking stat [facility] Tobacco smoking consumption unknown [facility] Start: 10-07-2023 End: 05-04-2025 Alcohol intake Lifetime non-drinker (finding) [facility] Work Phone: Start: 10-07-2023 End: 05-04-2025 History of Social function [employer] How often to you hav e a drink containing alcohol? Never [employer] Start: 07-24-2022 Average Number of Drinks Not on file [employer] (I/We) worried wheth er (my/our) food would run out before (I/we) got money to buy more. Never true [employer] At any time in the p ast 12 months, were you homeless or living in fpc [including now]? No [employer] Start: 1955 Sex assigned at Male [facility] Start: 03-25-2025 Gender identity Identifies as male gender (finding) [facility] Work Phone: Start: 03-25-2025 Sexual orientation Heterosexual (finding) [facility] Work Phone: Start: 10-09-2012 Sex Male (finding) [facility] Goals Date Patient Goal Desired Activity /State Functional Status Date Assessment Result Facility 05-04-2025 [place] - suicide s everity rating scale screener - recent [C-SSRS] [facility] Work Phone: 04-25-2025 Functional status Ambulates [facility] Work Phone: 03-25-2025 [place] - suicide s everity rating scale screener - recent [C-SSRS] [facility] Work Phone: Mental Status Date Assessment Result Facility 04-25-2025 Cognitive function Level Of Consciousness Sedated [facility] Work Phone: 04-25-2025 Cognitive function Voice/Name [facility] Work Phone: Clinical Notes 06-03-2015 [...] up to the time of signout at 1644. This is in addition to the primary record. Go over the results with the patient including CAT scan results. I will reach out to his urologist at [facility]. Patient has been accepted to [facility] by Dr. Lam. He will be given [...] Color, Urine Dark-Yellow Appearance, Urine Clear Specific Barstow, Urine 1.015 pH, Urine 6.5 Protein, Urine [...] Abnormality Status --------- ------ Urinalysis with Reflex C...[[id number]] Abnormal Final result Extra Urine [facility][[id number]] Please view results for these tests on [...] Andrew Sosa 05/04/2025 11:53 PM Dictation workstation: [id number] Medical Decision Making Transfer to [facility] Final diagnoses: [N20.1] Ureteral calculus Procedure Procedures DO Kartik Mendez DO 05/05/25153 [facility] Work Phone: 05-05-2025 Emergency department Note Emergency Medicine Transition of Care Note. I received Ramon Costa in signout from Dr. Love. Please see the previous ED provider note for all HPI, PE and MDM up to the time of signout at 0295. This is in addition to the primary record. Go over the results with the patient including CAT scan results. I will reach out to his urologist at [facility]. Patient has been accepted to [facility] by Dr. Lam. He will be given [...] Color, Urine Dark-Yellow Appearance, Urine Clear Specific Barstow, Urine 1.015 pH, Urine 6.5 Protein, Urine [...] Abnormality Status --------- ------ Urinalysis with Reflex C...[[id number]] Abnormal Final result Extra Urine [facility][[id number]] Please view results for these tests on [...] Andrew Sosa 05/04/2025 11:53 PM Dictation workstation: [id number] Medical Decision Making Transfer to [facility] Final diagnoses: [N20.1] Ureteral calculus Procedure Procedures DO Kartik Mendez DO 05/05/25 0154 documented in this encounter [facility] Work Phone: 04-25-2025 Discharge summary Note Date/Time April 25, 2025 3:47pm [facility] Medical Records Department [address] [place] [address] Instructions for Home/Discharge Instructions 04/25/25 1547 MR#: [id number] Acct: [id number] Name: RAMON COSTA Rep #:[id number] : [...] Up With: Harjit Lam MD When: Call [phone] for an appointment Test Results: Test results from this visit will be discussed in further detail at your follow-up appointment, if applicable. Discharge Plan Admission Primary Reason for Your Visit: ESWL Attending Provider: Harjit Lam Primary Care Provider: Jarad Rey Instructions Print Language: [place] Islander Discharge Orders/Prescriptions Prescriptions: New ciprofloxacin HCl [Cipro] [...] MD cc: Jarad Rey MD ~* Signed [facility] Work Phone: 1(585) 251-488808-27-2025 Consult note [facility] Medical Records Department [address] [place] [address] Anesthesia Postop Eval I 04/25/25 1647 MR#: [id number] Acct: [id number] Name: RAMON COSTA Rep #:[id number] : 1955 69 From: Gonzalo Saucedo CRNA PCP: Jarad Rey MD Status:REG SDC Y Race: C Location: [place] [address] Anesthesia: Postop Eval I Current Vital Signs [...] Eval 1 completed: Yes 04/25/25 1648 y RETAIL SALES TEAMMATE> Date _ Gonzalo Saucedo RETAIL SALES TEAMMATE Cosigner Signature: Date CC: ~ Signed [facility]08-27-2025 Procedure note [facility] Medical Records Department [address] [place] [address] Operative Report 04/25/25 1620 MR#: [id number] Acct: [id number] Name: RAMON COSTA Rep #:[id number] : 1955 69 From: Harjit Lam MD PCP: Jarad Rey MD Status:[facility] Location: [place] [address] Operative Report (Standard) Operative Information Date of Procedure: 04/25/25 Pre-Operative Diagnosis: Right kidney stones Post-Operative Diagnosis: same Surgery/Procedure Performed: Cystoscopy right stent placement and right ESWL handbag frames inspector: No Type of Anesthesia: General RN Documented [...] in usual sterile fashion. Using a 21 Bulgarian rigid cystourethroscope the entire length of the urethra was normal then went into the bladder. Identifiedthe trigone the left and right ureteral orifice. I then cannulated the right ureteral orifice and advanced a wire up into the kidney. I then backloaded a 5 Bulgarian open ended catheter over the wire and injected contrast todelineate the anatomy. After the retrograde was performed I then used fluoroscopic images and guidance to advanced a wire up into the kidney and over the 0.038 glidewire I advanced a 6 Bulgarian by 26 cm double pigtail stent. I [...] SCD's VTE Pharm Prophylaxis ordered?: No 04/25/25 5968 Cosigner Signature (if applicable): CC: Dr. Harjit Lam MD; Jarad Rey MD~ Signed [facility]08-27-2025 Discharge summary [facility] Medical Records Department [address] [place] [address] Instructions for Home/Discharge Instructions 04/25/25 1547 MR#: [id number] Acct: [id number] Name: RAMON COSTA Rep #:[id number] : [...] Up With: Harjit Lam MD When: Call [phone] for an appointment Test Results: Test results from this visit will be discussed in further detail at your follow- up appointment, if applicable. Discharge Plan Admission Primary Reason for Your Visit: ESWL Attending Provider: Harjit Lam Primary Care Provider: Jarad Rey Instructions Print Language: [place] Discharge Orders/Prescriptions Prescriptions: New ciprofloxacin HCl [Cipro] [...] with an KUB prior to appt. with in. 04/25/25 1547Harjit Lam MD cc: Jarad Rey MD ~* Signed [facility]08-27-2025 Consult note Author Delonte Israel [facility] Note Date/Time April 25, 2025 12 :41pm [facility] Medical Records Department [address] [place] [address] Pre-Anesthesia Evaluation 04/25/25 1240 MR#: [id number] Acct: [id number] Name: RAMON COSTA Rep #:[id number] : 1955 69 From: Delonte Israel MD PCP: Jarad Rey MD Status:REG SDC Y Race: C Location: [place] [address] ASA Classification* ASA Classification ASA Classification: 3 [...] INSERTION STENT Anesthesia History Anesthesia History - guest service 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: Anesthesia History - guest service supervisor Hx Hospitalization No 04/13/25 13:21 Any Problems [...] take am of surgery PONV PONV - guest service supervisor: PONV - guest service supervisor Female No 04/13/25 13:21 HX of Motion [...] 04/25/25 12:03 Respiratory Assessment Respiratory Assessment - guest service supervisor: Respiratory Tract Infection Hx - guest service supervisor Hx Respiratory Tract Infection No 04/13/25 13:21 STOP Sleep Apnea STOP Sleep Apnea - guest service supervisor: STOP Sleep Apnea - guest service supervisor Hx Hypertension Yes: CONTROLLED WITH MED 04/13/25 [...] Tobacco Use History Tobacco Use History - guest service supervisor: Tobacco Use History - guest service supervisor Tobacco Use Smoking Status Never smoker 04/13/25 13:21 Hx Tobacco Use No 04/13/25 13:21 Years Smoking Packs Smoked per Day Smoking Cessation Date was within the last 15 years Hx Smoking Cessation Date Hx Smoking Cessation Counseling Hematologic Medial History Hematologic Hx - guest service supervisor: 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 Hx of Blood Transfusion No 04/13/25 13:21 [...] confused, unrespo /Reproduction History /Reproductive History - guest service supervisor: /Reproductive Hx- guest service supervisor Hx Now No 04/13/25 13:21 Gestational Age [...] MD Cosign Signature: Date CC: ~ Signed [facility] Work Phone: 1(933) 374-701408-27-2025 Consult note [facility] Medical Records Department [address] [place] [address] Pre-Anesthesia Evaluation 04/25/25 1240 MR#: [id number] Acct: [id number] Name: RAMON COSTA Rep #:[id number] : 1955 69 From: Delonte Israel MD PCP: Jarad Rey MD Status:REG [facility] [place] Race: C Location: [place] [address]- ASA Classification* ASA Classification ASA Classification: 3 [...] INSERTION STENT Anesthesia History Anesthesia History - guest service supervisor: Anesthesia History - guest service supervisor Hx Hospitalization No 04/13/25 13:21 Any Problems [...] take am of surgery PONV PONV - guest service supervisor: PONV - guest service supervisor Female No 04/13/25 13:21 HX of Motion [...] 04/25/25 12:03 Respiratory Assessment Respiratory Assessment - guest service supervisor: Respiratory Tract Infection Hx - guest service supervisor Hx Respiratory Tract Infection No 04/13/25 13:21 STOP Sleep Apnea STOP Sleep Apnea - guest service supervisor: STOP Sleep Apnea - guest service supervisor Hx Hypertension Yes: CONTROLLED WITH MED 04/13/25 [...] Tobacco Use History Tobacco Use History - guest service supervisor: Tobacco Use History - guest service supervisor Tobacco Use Smoking Status Never smoker 04/13/25 13:21 Hx Tobacco Use No 04/13/25 13:21 Years Smoking Packs Smoked per Day Smoking Cessation Date was within the last 15 years Hx Smoking Cessation Date Hx Smoking Cessation Counseling Hematologic Medial History Hematologic Hx - guest service supervisor: 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 Hx of Blood Transfusion No 04/13/25 13:21 [...] confused, unrespo /Reproduction History /Reproductive History - guest service supervisor: /Reproductive Hx- guest service supervisor Hx Now No 04/13/25 13:21 Gestational Age [...] 15 mls/hr .Q48H RAYA Administration [facility] Medical History (Updated 04/13/25 @ 13:33 by [...] Delonte Copeigndamaso Signature: Date CC: ~ Signed [facility]08-14-2025 Radiology Diagnostic study note [facility] Imaging Services [address] [place] [address] Abdomen Single View MR#: [id number] Acct: [id number] Name: RAMON COSTA Rep #: [id number] : 1955 M 69 From: La Guerrero MD PCP: Jarad Rey MD Status: REG CLI Study:Abdomen Single View Date of Exam: 04/10/25 Exam# [id number] Ordering Dr: Melba Barr PROCEDURE: ABDOMEN SINGLE [...] Bony structures show degenerative change Reading Location: [facility] CC: Jarad Rey MD; Melba Barr ~ Cardiothoracic Physiotherapist: Signed [facility]07-27-2025 Physician Emergency department Note* Zak Alvarez MD [...] Light-Brown (*) Appearance, Urine Turbid (*) Specific Barstow, Urine 1.012 pH, Urine 6.5 Protein, Urine [...] Abnormality Status --------- ------ Urinalysis with Reflex C...[[id number]] Abnormal Final result Extra Urine [facility][[id number]] Please view results for these tests on [...] Maykel Ruano 03/25/2025 10:47 PM Dictation workstation: [id number] Procedures Medical Decision Making 69-year-old male history [...] Hemorrhagic cystitis Zak Alvarez MD 03/25/25 2334 [facility] Work Phone: 1(279) 863-656007-27-2025 Emergency department Note* Zak Alvarez MD - [...] Light-Brown (*) Appearance, Urine Turbid (*) Specific Barst[place], Urine 1.012 pH, Urine 6.5 Protein, Urine [...] Abnormality Status --------- ------ Urinalysis with Reflex C...[[id number]] Abnormal Final result Extra Urine [facility][[id number]] Please view results for these tests on [...] Maykel Ruano 03/25/2025 10:47 PM Dictation workstation: [id number] Procedures Medical Decision Making 69-year-old male history [...] Alvarez MD 03/25/25 2334 documented in this [facility] Work Phone: 1(124) 605-814801-15-2025 History of Present illness Narrative* Isabela Bazan [...] and BMP and PSA documented in this [facility] Work Phone: 1(419) 250-735706-26-2024 History of Present illness Narrative* Isabela Bazan [...] 6 months with KUB [facility]: 1(658) 985-815204-18-2024 History of Present illness Narrative* Isabela Bazan [...] 2 months with KUB documented in this [facility] Work Phone: 1(412) 857-857103-18-2024 History of Present illness Narrative* Isabela Bazan [...] to keep PVR log documented in this [facility] Work Phone: 1(862) 703-359303-13-2024 History of Present illness Narrative* Isabela Bazan [...] and chills also last week. Was in [facility] ER last night and had a yan [...] intake. F/U 1 week documented in this [facility] Work Phone: 1(843) 820-741503-12-2024 Emergency department Note* Karen Fischer PA-C - [...] Urine Yellow Appearance, Urine Hazy (*) Specific Barstow, Urine 1.015 pH, Urine 6.0 Protein, Urine [...] Abnormality Status --------- ------ Urinalysis with Reflex C...[[id number]] Abnormal Final result Extra Urine [facility][[id number]] Please view results for these tests on [...] times daily. First dose given in the [facility] room along with Pyridium. Patient [...] Karen Fischer PA-C 11/09/232024 documented in this [facility] Work Phone: 1([phone]) 596-257403-12-2024 Physician Emergency department Note* Karen Fischer PA-C [...] Urine Yellow Appearance, Urine Hazy (*) Specific [place]st[place], Urine 1.015 pH, Urine 6.0 Protein, Urine [...] Abnormality Status --------- ------ Urinalysis with Reflex C...[[id number]] Abnormal Final result Extra Urine [facility][[id number]] Please view results for these tests on [...] times daily. First dose given in the [facility] room along with Pyridium. Patient [...] hematuria, site unspecified Karen Fischer PA-C 11/09/232024 [facility] Work Phone: 1([phone]) 710-233203-12-2024 Reason for referral (narrative)* Consultation (Routine) - Authorized Specialty Diagnoses / Procedures Referred By Roxanne pearson Referred To Contact Urology Karen Fischer PA-C [address] [facility] [place] [address] Referral ID Status Reason Start Date Expiration Date Visits Requested Visits Authorized [id number] Authorized Specialty Services Required 11/09/2023 11/08/2024 1 1 [facility] Work Phone: 1(146) 267-536403-11-2024 History of Present illness Narrative* Isabela Bazan [...] for PVR check Virtual [facility]: 1(356) 368-904103-04-2024 History of Present illness Narrative* Yaneth Funez [...] 6 MONTHS WITH KUB [facility]: 1([phone]) 585-780302-08-2024 History of Present illness Narrative* Isabela Bazan [...] and KUB and Cysto documented in this [facility] Work Phone: 1([phone]) 351-964511-10-2021 History of Present illness Narrative* Initial Fall [...] patient is not using an assistive device. [facility] Work Phone: 1([phone]) 116-535407-01-2021 History of Present illness Narrative* Diamond Shah RN - 02/27/2021 9:59 AM EDT Reviewed history, allergies, and medications. Patient held his home medications prior to testing. Consent confirmed. Lexiscan exam explained. Placed patient on monitor. @ 1003 computer technology teacher here to inject Lexiscan. SOB noted during recovery phase. Denied chest pain.Few pvc's noted. Patient off monitor and instructed to eat, will have last part of exam in 1 hour. [facility]: 1(500) [phone] Hospital Discharge instructions* Instructions* Oscar Dickens MD - 02/17/2021 ICE AFFECTED AREA. WRAP FOR SUPPORT. RETURN FOR NEW OR WORSENING SYMPTOMS. * Attachments The following attachments cannot be sent through Care Everywhere. * Hand Pain ([place] Island[place]) [facility] this [facility] Phone: [phone]) 137-203310-12-2015 Telephone encounter Note* Telephone Encounter - Anita Hernandez LPN - 06/10/2015 8:[address] Barreto pt [id number] Miscellaneous Notes* Telephone Encounter - Anita Hernandez LPN - 06/10/2015 8:[address] Barreto pt documented in this [id number] Telephone encounter Note* Telephone Encounter - Nina Cameron LPN - 06/04/2015 3:42 PM EDT Med list updated [id number] Miscellaneous Notes* Telephone Encounter - Nina Cameron LPN - 06/04/2015 3:42 PM EDT Med list updated * Telephone Encounter - Briana Gan CNP - 06/03/2015 3:43 PM EDT No med list available documented in this [id number] Telephone encounter Note* Telephone Encounter - Briana Gan CNP - 06/03/2015 3:43 PM EDT No med list available [facility] Work Phone: Consult note Author Gonzalo Saucedo [facility] Note Date/Time April 25, 2025 4: 48pm [facility] Medical Records Department [address] [place] [address] Anesthesia Postop Eval I 04/25/25 1647 MR#: [id number] Acct: [id number] Name: RAMON COSTA Rep #:[id number] : 1955 69 From: Gonzalo Saucedo CRNA PCP: Jarad Rey MD Status:REG SDC Y Race: C Location: [place] [address] Anesthesia: Postop Eval I Current Vital Signs [...] document: Postop Eval 1 completed: Yes 04/25/25 6828 <Electronically signed by Gonzalo mccain CRNA> Date _ Gonzalo Saucedo CRNA Cosigner Signature: Date CC: ~ Signed [facility] Work Phone: Evaluation note* Diagnosis Right hand pain- Primary Pain in limb documented in this encounter [facility] Phone: evaluation note* Diagnosis THURMAN (dyspnea on exertion) Other dyspnea and respiratory abnormality documented in this encounter [facility] Phone: evaluation note* Diagnosis Annual physical exam Routine general medical examination at a [facility] care facility Prostate cancer screening Special screening for malignant neoplasm of prostate documented in this encounter [facility] Phone: evaluation note* Diagnosis Multiple thyroid nodules Nontoxic multinodular goiter documented in this encounter [facility] Phone: evaluation note* Diagnosis SOB (shortness of breath) Shortness of breath documented in this encounter [facility] Phone: evaluation note* Diagnosis SOB (shortness of breath) Shortness of breath documented in this encounter [facility] Phone: evaluation note* Diagnosis Benign prostatic hyperplasia with lower urinary tract symptoms, symptom details unspecified Nocturia History of kidney stones documented in this encounter [facility] Work Phone: Evaluation note* Diagnosis History of kidney stones documented in this encounter [facility] Work Phone: Evaluation note* Diagnosis Hematuria, unspecified type- Primary documented in this encounter [facility] Work Phone: Evaluation note* Diagnosis Nocturia Benign prostatic hyperplasia with lower urinary tract symptoms, symptom details unspecified History of kidney stones Dysuria documented in this encounter [facility] Work Phone: [phone] note* Diagnosis Urinary retention- Primary Unspecified retention of urine Urinary tract infection with hematuria, site unspecified Nocturia Dysuria Benign prostatic hyperplasia with lower urinary tract symptoms, symptom details unspecified documented in this encounter [facility] Work Phone: [phone] note* Diagnosis Nocturia Dysuria Benign prostatic hyperplasia with lower urinary tract symptoms, symptom details unspecified documented in this encounter [facility] Work Phone: [phone] note* Diagnosis Benign prostatic hyperplasia with lower urinary tract symptoms, symptom details unspecified Dysuria History of kidney stones Nocturia Retention of urine Unspecified retention of urine documented in this encounter [facility] Work Phone: [phone] note* Diagnosis History of kidney stones Nocturia Benign prostatic hyperplasia with lower urinary tract symptoms, symptom details unspecified documented in this encounter [facility] Work Phone: [phone] note* Diagnosis Encounter for annual wellness exam in Medicare patient- Primary Encounter for immunization Need for other specified prophylactic vaccination against single bacterial disease Medicare annual wellness visit, subsequent Routine general medical examination at a health care facility Chronic obstructive pulmonary disease, unspecified COPD type (HCC) Malignant melanoma, unspecified site (HCC) Encounter for annual wellness exam in Medicare patient [facility] History of kidney stones documented in this encounter [facility] Work Phone: [phone] note* Diagnosis Benign prostatic hyperplasia with lower urinary tract symptoms, symptom details unspecified- Primary History of kidney stones Nocturia History of kidney stones documented in this encounter [facility] Work Phone: [phone] note* Diagnosis History of kidney stones Benign prostatic hyperplasia with lower urinary tract symptoms, symptom details unspecified Nocturia documented in this encounter [facility] Work Phone: [phone] note* Diagnosis Hemorrhagic cystitis- Primary Unspecified cystitis documented in this encounter [facility] Work Phone: Evaluation note* Diagnosis Encounter for annual wellness exam in Medicare patient- Primary Encounter for immunization Need for other specified prophylactic vaccination against single bacterial disease Medicare annual wellness visit, subsequent Routine general medical examination at a health care facility Chronic obstructive pulmonary disease, unspecified COPD type (HCC) Malignant melanoma, unspecified site (HCC) Gallbladder polyp Cholesterolosis of gallbladder [facility] information [facility] Work Phone: Evaluation note* Diagnosis Ureteral calculus- Primary Calculus of ureter documented in this encounter [facility] Work Phone: Hospital Discharge instructions* Instructions* Briana Salcido RN - 09/14/2019 Recommendations: - Repeat colonoscopy in 10 years. - Recommend High-fiber diet, keep stools soft and regular, avoid constipation and straining, use Anusol/preparation H ointment/cream for hemorrhoids if/when symptomatic. - Follow up with primary care physician as previously scheduled * Attachments The following attachments cannot be sent through Care Everywhere. * Colonoscopy: Post-op ([place]) [facility]* Attachments The following attachments cannot be sent through Care Everywhere. * Urinary Tract Infection, Adult ED ([place]) * Yan Catheter ([place]) [facility]* Attachments The following attachments cannot be sent through Care Everywhere. * Acute Cystitis Discharge Instructions ([place]) [facility] Reason for referral (narrative)No reason for referral [facility]: Reason for visit Narrative* Imaging (Routine) - Authorized Specialty Diagnoses / Procedures Referred By Roxanne t Referred To Contact Radiology Diagnoses History of kidney stones Procedures XR abdomen 1 view Isabela Bazan MD [address] [place] [address] Phone: tel: fax: Referral ID Status Reason Start Date Expiration Date Visits Requested Visits Authorized [id number] Authorized Perform Procedure 4 07/25/2025 1 1 [facility] Work Phone: Reason for visit Narrative* Imaging (Routine) - Pending Review Specialty Diagnoses / Procedures Referred By Roxanne pearson Referred To Contact Radiology Diagnoses Gallbladder polyp Procedures US GALLBLADDER Kaylynn Walter MD [address] [address] Phone: tel: fax: Referral ID Status Reason Start Date Expiration Date V isits Requested Visits Authorized [id number] Pending Review 04/26/2025 04/26/2026 1 1 [facility] Diagnosis Bradycardia Other specified cardiac dysrhythmias 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 Dyslipidemia Other and [...] Documents on File Type Date Recorded 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 Expl 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 Advance Directives and Living Will Power of Freight Checker Latest Code Status on File Code Status Date Activated Date Inactivated Comments Full Code 03/28/2018 5:49 PM 03/28/2018 8:48 PM Full Code 03/28/2018 11:18 AM 03/28/2018 1:58 PM Documents on File Type Date Recorded 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 Specialist Expl anation ACP-Advance Directive ACP-Power of Freight Checker Latest Code Status on File Code Status Date Activated Date Inactivated Comments Full Code 03/28/2018 5:49 PM 03/28/2018 8:48 PM Full Code 03/28/2018 11:18 AM 03/28/2018 1:58 PM Documents on File Type Date Recorded 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 Specialist Expl anation Advance Directives and Living Will Power of Freight Checker Documents on File Type Date Recorded 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 Specialist Expl anation ACP-Advance Directive ACP-Power of Freight Checker Healthcare Agents on File Name Relationship Healthcare Agent Relationshi p Communication Jeanne Costa Spouse Primary Decision Maker Healthcare Agents on File Name Relationship Healthcare Agent Relationshi p Communication Jeanne Costa Spouse Primary Decision Maker Healthcare Agents on File Name Relationship Healthcare Agent Relationshi p Communication Jeanne Costa Spouse Primary Decision Maker [email or web address] Activated Date Inactivated Comments 08/17/2023 10:27 AM 08/17/2023 2:59 PM Date Activated Date Inactivated Comments 03/28/2018 5:49 PM 03/28/2018 8:48 PM Date Activated Date Inactivated Comments 03/28/2018 11:18 AM 03/28/2018 1:58 PM Healthcare Agents on File Name Relationship Healthcare Agent Relationshi p Communication Jeanne Costa Spouse Primary Decision Maker [email or web address] Activated Date Inactivated Comments 08/17/2023 10:27 AM 08/17/2023 2:59 PM Date Activated Date Inactivated Comments 03/28/2018 5:49 PM 03/28/2018 8:48 PM Date Activated Date Inactivated Comments 03/28/2018 11:18 AM 03/28/2018 1:58 PM Healthcare Agents on File Name Relationship Healthcare Agent Relationshi p Communication Jeanne Costa Spouse Primary Decision Maker [email or web address] Directive Response Recorded Date/ Time Do you have a Healthcare Power of Freight Checker? Yes April 13, 2025 1:21pm Reason for Referral Status Reason Specialty Diagnoses / Procedures Referred By Contact Referred To Contact Pending Review Cardiology Diagnoses PVC (premature ventricular contraction) Procedures Holter monitor 24 hour Christofferson, Brain D, MD [address] [facility] [address] [place] [address] Status Reason Specialty Diagnoses / Procedures Referre d By Contact Referred To Contact Closed Cardiology Diagnoses THURMAN (dyspnea on exertion) Procedures ECHO Complete 2D [place] [address] [place] [address] [address] [place] [address] Status Reason Specialty Diagnoses / Procedures Referre d By Contact Referred To Contact Closed Radiology Diagnoses THURMAN (dyspnea on exertion) Procedures NM MYOCARDIAL SPECT REST [place]ERC[place] [address] [place] [address] [address] [place] [address] Specialty Diagnoses / Procedures Referred By Contac t Referred To Contact Radiology Diagnoses History of kidney stones Procedures XR abdomen 1 [place] [address] [place] [address] Referral ID Status Reason Start Date Expiration Date Visits Requested Visits Authorized [id number] Authorized Perform Procedure 10/07/2023 10/06/2024 1 1 Specialty Diagnoses / Procedures Referred By Contac t Referred To Contact Radiology Diagnoses History of kidney stones Procedures XR abdomen [place] [address] [place] [address] [facility] [facility] [address] [facility] [address] [place] [address] Specialty Diagnoses / Procedures Referred By Contac t Referred To Contact Diagnoses History of kidney stones Isabela Bazan MD [address] [place] [address] Referral ID Status Reason Start Date Expiration Date V isits Requested Visits Authorized [id number] Pending Review 1 1 Referral ID Status Reason Start Date Expiration Date Visits Requested Visits Authorized [id number] Authorized Perform Procedure 02/23/2024 02/22/2025 1 1 Referral ID Status Reason Start Date Expiration Date Visits Requested Visits Authorized [id number] Authorized Perform Procedure 02/23/2024 02/22/2025 1 1 [...] section and content) DATE CREATED AUTHOR 02/22/2018 [facility] DATE CREATED AUTHOR AUTHOR'S ORGANIZ ATION 04/11/2018 [facility] DATE CREATED AUTHOR AUTHOR'S ORGANIZ ATION 05/07/2018 [facility] DATE CREATED AUTHOR AUTHOR'S ORGANIZ ATION 06/09/2018 [facility] DATE CREATED AUTHOR AUTHOR'S ORGANIZ ATION 06/14/2018 [facility] DATE CREATED AUTHOR AUTHOR'S ORGANIZ ATION 06/14/2018 [facility] DATE CREATED AUTHOR AUTHOR'S ORGANIZ ATION 06/21/2018 [facility] DATE CREATED AUTHOR AUTHOR'S ORGANIZ ATION 01/05/2023 [facility] DATE CREATED AUTHOR AUTHOR'S ORGANIZ ATION 08/20/2023 [facility] DATE CREATED AUTHOR AUTHOR'S ORGANIZ ATION 09/19/2023 [facility] DATE CREATED AUTHOR AUTHOR'S ORGANIZ ATION 11/13/2023 [facility] DATE CREATED AUTHOR AUTHOR'S ORGANIZ ATION 09/16/2024 [facility] DATE CREATED AUTHOR AUTHOR'S ORGANIZ ATION 03/28/2025 [facility] DATE CREATED AUTHOR AUTHOR'S ORGANIZ ATION 04/13/2025 [facility] DATE CREATED AUTHOR AUTHOR'S ORGANIZ ATION 05/02/2025 [facility] Reason for Visit (unrecogniz ed section and content) Status Reason Specialty Diagnoses / Procedures Referred By Contact Referred To Contact Pending Review Cardiology Diagnoses PVC (premature ventricular contraction) Procedures Holter monitor 24 hour Brain Freedman MD [address] [facility] [address] [place] [address] Status Reason Specialty Diagnoses / Procedures Referre d By Contact Referred To Contact Open EKG Diagnoses Ventricular premature depolarization Procedures HOLTER MONITOR Brain Freedman MD [address] [facility] [address] [place] [address] [facility] [address] [place] [address] Reason Comments Hand Injury right hand pain and swelling x1hr s/p fall while playing basketball. motor and sensation intact, some numbness. On plavix. Status Reason Specialty Diagnoses / Procedures Referre d By Contact Referred To Contact Closed Radiology Diagnoses THURMAN (dyspnea on exertion) Procedures NM MYOCARDIAL SPECT REST EXERCISE OR RX Justin Espinoza MD [address] [address] Status Reason Specialty Diagnoses / Procedures Referre d By Contact Referred To Contact Closed Cardiology Diagnoses THURMAN (dyspnea on exertion) Procedures ECHO Complete 2D W Doppler W Color Justin Espinoza MD [address] [address] Status Reason Specialty Diagnoses / Procedures Referre d By Contact Referred To Contact Diagnoses Personal history of colonic polyps HISTORY OF COLON POLYPS Procedures MI COLONOSCOPY FLX DX W/COLLJ SPEC WHEN PFRMD COLONOSCOPY Familia Oliva MD [address] [place] [address] [facility] Reason Comments Medication Refill Reason Comments Establish Care Specialty Diagnoses / Procedures Referred By Contac t Referred To Contact Radiology Diagnoses History of kidney stones Procedures XR abdomen 1 view Isabela Bazan MD [address] [place] [address] [id number] [address] [facility] [address] [place] [address] Referral ID Status Reason Start Date Expiration Date Visits Requested Visits Authorized [id number] Authorized Perform Procedure 10/07/2023 10/06/2024 1 1 [...] abdomen 1 view Isabela Bazan MD [address] [place] [address] Referral ID Status Reason Start Date Expiration Date Visits Requested Visits Authorized [id number] Authorized Perform Procedure 02/23/2024 02/22/2025 1 1 [...] Care Teams (unrecognized sec tion and content) 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 Relationship Specialty Start Date End Date Jarad Rey MD [address] [place] [address] PCP - General Family Medicine 01/13/18 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 Relationship Specialty Start Date End Date Jarad Rey MD [address] [place] [address] PCP - General Family Medicine 01/13/18 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 Relationship Specialty Start Date End Date Jarad Rey MD [address] [place] [address] PCP - General Family Medicine 01/13/18 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 Relationship Specialty Start Date End Date Aramis Beaulieu MD [address] [place] [id number] PCP - General 12/12/12 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 Relationship Specialty Start Date End Date Aramis Beaulieu MD [address] [place] [address] PCP - General 12/12/12 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 Relationship Specialty Start Date End Date Jarad Rey MD [address] [place] [address] PCP - General 08/30/17 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 Relationship Specialty Start Date End Date Jarad Rey MD [address] [place] [address] PCP - General 08/30/17 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 Relationship Specialty Start Date End Date Jarad Rey MD [address] [place] [address] PCP - General 08/30/17 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 Relationship Specialty Start Date End Date Jarad Rey MD [address] [place] [address] PCP - General 08/30/17 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 Relationship Specialty Start Date End Date Jarad Rey MD [address] [place] [address] PCP - General 08/30/17 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 Relationship Specialty Start Date End Date Jarad Rey MD [address] [place] [address] PCP - General 08/30/17 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 Relationship Specialty Start Date End Date Jarad Rey MD [address] [place] [address] PCP - General 08/30/17 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 Relationship Specialty Start Date End Date Jarad Rey MD [address] [place] [address] PCP - General 08/30/17 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 Relationship Specialty Start Date End Date Jarad Rey MD [address] [place] [address] PCP - General Family Medicine 01/13/18 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 Relationship Specialty Start Date End Date Jarad Rey MD [address] [place] [address] PCP - General 08/30/17 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 Relationship Specialty Start Date End Date Jarad Rey MD [address] [place] [address] PCP - General 08/30/17 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 Relationship Specialty Start Date End Date Jarad Rey MD [address] [place] [address] PCP - General 08/30/17 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 Relationship Specialty Start Date End Date Jarad Rey MD [address] [place] [address] PCP - General 08/30/17 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 Relationship Specialty Start Date End Date Jarad Rey MD [address] [place] [address] PCP - General Family Medicine 01/13/18 Team [...] April 25, 2025 End: April 25, 2025 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 [employer] provides no warranty or guarantee of the accuracy or completeness of information in this document.
[2025-05-05] MEDS: Cefazolin 1 GM/50 ML BAG IV ×2 (12:21→18:36)
[2025-05-06] MEDS: Cefazolin 1 GM/50 ML BAG IV (02:47)
[2025-05-06] MEDS: 0.9% Normal Saline (1000mL) 1,000 ML 125 ML IV (02:47)
[2025-05-06 02:49] VITALS: BMI 36.0
[2025-05-06 02:59] VITALS: BP 123/65; PULSE 70; RESP 16; TEMP 36.4; O2SAT 98
[2025-05-06 06:48] VITALS: BMI 36.0
[2025-05-06 07:34] LABS: Hematocrit 36.5 % (40-54); Hemoglobin 12.3 g/dL (13.0-16.5); Immature Granulocytes Count 0.050 X10^3/uL (0.0-0.0); Mean Corp Hgb Conc 33.7 g/dL (32-36); Mean Corpuscular Volume 94.6 fL (80-94); Mean Platelet Vol. 8.8 fl (6.2-12.0); NRBC Flagged by Analyzer 0 % (0-5); Platelet Count 163 K/mm3 (150-450); RBC Distribution Width CV 13.6 % (11.6-14.6); RBC Distribution Width SD 47.3 fl (35.1-43.9); Red Blood Count 3.86 M/mm3 (4.6-6.2); White Blood Count 8.5 K/mm3 (4.4-11.0)
[2025-05-06 07:52] LABS: Anion Gap 7 (5-15); BUN 12 mg/dL (4-19); BUN/Creat Ratio 8.7 RATIO (10-20); Calcium,Total 8.1 mg/dL (7.6-11.0); Carbon Dioxide 22.0 mmol/L (21.0-32.0); Chloride 111 mmol/L (98-108); Estimated Creatinine Clearance 60.60 ml/min (50-250); Glucose 101 mg/dL (70-99); Potassium 4.0 mmol/L (3.3-5.1)
--- NOTE | 2025-05-06 08:56 | PCM.DC.SUM ---
Providers Date of Admission: 05/05/25 Date of Discharge: 05/06/25 Primary Care Physician: Dr. Jarad Zamudio MD Diagnosis Discharge Diagnosis (1) Calculus of kidney: Status: Acute Code(s): N20.0 - Calculus of kidney Plan: Plan to take him to surgery today to laser stone to place a stent Medications at Discharge Home Medications allopurinol 300 mg tablet 300 mg PO DAILY 04/13/25 ascorbic acid (vitamin C) 500 mg tablet (C-500) 1 g PO DAILY 04/13/25 atorvastatin 40 mg tablet 40 mg PO QHS 04/13/25 cholecalciferol (vitamin D3) 125 mcg (5,000 unit) tablet (Vitamin D3) 125 mcg PO DAILY 04/13/25 clopidogrel 75 mg tablet 75 mg PO DAILY 04/13/25 cyanocobalamin (vitamin B-12) 1,000 mcg capsule 1,000 mcg PO DAILY 04/13/25 losartan 25 mg tablet 25 mg PO DAILY 04/13/25 niacinamide 500 mg tablet 500 mg PO DAILY 04/13/25 pantoprazole 40 mg tablet,delayed release 40 mg PO DAILY 04/13/25 ropinirole 1 mg tablet 1 mg PO QHS 04/13/25 oxycodone 5 mg tablet 5 mg PO Q6H PRN pain 3 days #14 tabs 04/25/25 phenazopyridine 100 mg tablet (Pyridium) 100 mg PO TID #20 tabs 04/25/25 tamsulosin 0.4 mg capsule (Flomax) 0.4 mg PO DAILY #14 caps 04/25/25 ciprofloxacin HCl 500 mg tablet (Cipro) 500 mg PO BID #6 tabs 05/06/25 oxycodone 5 mg tablet 5 mg PO Q6H PRN pain 3 days #10 tabs 05/06/25 phenazopyridine 100 mg tablet (Pyridium) 100 mg PO TID #14 tabs 05/06/25 tamsulosin 0.4 mg capsule (Flomax) 0.4 mg PO DAILY #10 caps 05/06/25 Hospital Course Summary of Care Provided Hospital Course: Patient was admitted for [place] after shockwave lithotripsy, he underwent ureteroscopy and laser lithotripsy of all the stones in the ureter got everything cleared out stent was placed he will go home today with a stent follow-up in my office for stent removal Weight / BMI Weight Weight: 110.6 kg Body Mass Index (BMI) 36.0 ABG / Lab / Microbiology Data 05/06/25 07:03 05/06/25 07:03 Laboratory: Laboratory Results - last 24 hr 05/06/25 07:03: WBC 8.5, RBC 3.86 L, Hgb 12.3 L, Hct 36.5 L, MCV 94.6 H, MCH 31.9, MCHC 33.7, RDW Std Deviation 47.3 H, RDW Coeff of Sarah 13.6, Plt Count 163, MPV 8.8, Immature Gran % (Auto) 0.600, Neut % (Auto) 72.5 H, Lymph % (Auto) 16.4 L, Pierce % (Auto) 8.9, Eos % (Auto) 1.2, Baso % (Auto) 0.4, Absolute Neuts (auto) 6.2, Absolute Lymphs (auto) 1.39, Nucleated RBC % 0, Sodium 140, Potassium 4.0, Chloride 111 H, Carbon Dioxide 22.0, Anion Gap 7, BUN 12, Creatinine 1.43 H, Estim Creat Clear Calc 60.60, Est GFR (MDRD) Non-Af 53 L, BUN/Creatinine Ratio 8.7 L, Glucose 101 H, Calcium 8.1 D/C Instructions DC O2, CPAP, BIPAP Needs Home O2 Discharge instructions: No Meaningful Use Info Meaningful Use Meaningful Use Diagnoses (Choose all that apply): None applicable Discharge Plan Admission Admit Date/Time: 05/05/25 09:48 Primary Reason for Your Visit: laser stone Attending Provider: Harjit Lam Primary Care Provider: Jarad Zamudio Discharge Orders/Prescriptions Prescriptions: New ciprofloxacin HCl [Cipro] 500 mg tablet 500 mg PO BID Qty: 6 0RF tamsulosin [Flomax] 0.4 mg capsule 0.4 mg PO DAILY Qty: 10 0RF phenazopyridine [Pyridium] 100 mg tablet 100 mg PO TID Qty: 14 0RF oxycodone 5 mg tablet 5 mg PO Q6H PRN (Reason: pain) 3 Days Qty: 10 0RF Continued atorvastatin 40 mg tablet 40 mg PO QHS clopidogrel 75 mg tablet 75 mg PO DAILY pantoprazole 40 mg tablet,delayed release (DR/EC) 40 mg PO DAILY ropinirole 1 mg tablet 1 mg PO QHS losartan 25 mg tablet 25 mg PO DAILY allopurinol 300 mg tablet 300 mg PO DAILY niacinamide 500 mg tablet 500 mg PO DAILY cyanocobalamin (vitamin B-12) 1,000 mcg capsule 1,000 mcg PO DAILY ascorbic acid (vitamin C) [C-500] 500 mg tablet 1 g PO DAILY cholecalciferol (vitamin D3) [Vitamin D3] 125 mcg (5,000 unit) tablet 125 mcg PO DAILY tamsulosin [Flomax] 0.4 mg capsule 0.4 mg PO DAILY Qty: 14 0RF phenazopyridine [Pyridium] 100 mg tablet 100 mg PO TID Qty: 20 0RF oxycodone 5 mg tablet 5 mg PO Q6H PRN (Reason: pain) 3 Days Qty: 14 0RF Referrals / Follow Up: Jarad Zamudio MD [Primary Care Provider] - Disposition Disposition (needs filled in before D/C Order can be placed): Home, Self Care
[2025-05-06 08:59] VITALS: PULSE 95; RESP 18; O2SAT 100
[2025-05-06 09:00] VITALS: BP 135/65; PULSE 95; RESP 18; TEMP 36.6; O2SAT 100
[2025-05-06 10:49] VITALS: BMI 36.0
[2025-05-06 11:31] VITALS: BP 137/73; PULSE 81; RESP 18; TEMP 36.6; O2SAT 99
== END 2025-05-06 12:28 | disposition home or self-care (01) ==
PROVIDERS: Anesthesiology; Admitting Provider Urology; PCP Family Medicine; Visit Provider Urology
PROC: 0TJ98ZZ Inspection of Ureter, Via Natural or Artificial Opening Endoscopic (ICD-10-PCS; CPT 52352; principal; 2025-05-05 07:30)
DX: N20.1 Calculus of ureter (principal); E78.00 Pure hypercholesterolemia, unspecified; Z79.02 Long term (current) use of antithrombotics/antiplatelets; I10 Essential (primary) hypertension; J45.909 Unspecified asthma, uncomplicated; Z79.899 Other long term (current) drug therapy
CPT/HCPCS: 52356; 00918; 36415; 76000; 80048; 85025; 93005; 94668; 96361; 96365; 96366; 96372; 96375; 96376; 99221; A4216; C2617; G0378; J2405

== ENCOUNTER 2025-05-12 10:05 | Emergency (ER) | payer MEDICARE, BC, SELFPAY ==
[2025-05-12 10:06] VITALS: BP 155/74; PULSE 76; RESP 14; TEMP 36.6; O2SAT 98; BMI 34.9
--- NOTE | 2025-05-12 10:27 | EX.ED.GUMALE ---
HPI History of Present Illness Chief Complaint: Complaint Informant: patient and spouse/S.O. Narrative Narrative: 69-year-old male having difficulty urinating. He states that started several days ago, he had a ureteral stent that was placed 1 week ago after having kidney stone cluster that was lasered/removed here by Dr. Lam. He saw him in the office 2 days ago because of the difficulty urinating so the stent was removed, but since then he has not been able to urinate on his own at all but if he self catheterizes himself, supplies given to him by urology in the past Dr. Vanegas in [place], he is able to empty his bladder and he states he gets quite a bit of urine out and feels better until the next time he needs to go and is only able to dribble a little bit of urine without catheterizing himself. He states he is already on Flomax for his prostate. No gross hematuria. [facility] Medical History Wears glasses Cancer Prostate disease High cholesterol Back pain Injury of back History of diverticulitis Gastric reflux Asthma Shortness of breath on exertion CPAP (continuous positive airway pressure) dependence Non-smoker History of edema History of stress test Cardiology follow-up encounter Hypertension Home Medications ?Medication ?Instructions ?Recorded ?Last Taken ?Type allopurinol 300 mg tablet 300 mg PO DAILY 04/13/25 05/04/25 10:00 History ascorbic acid (vitamin C) 500 mg 1 g PO DAILY 04/13/25 05/04/25 10:00 History tablet (C-500) atorvastatin 40 mg tablet 40 mg PO QHS 04/13/25 05/04/25 22:00 History cholecalciferol (vitamin D3) 125 125 mcg PO DAILY 04/13/25 05/04/25 10:00 History mcg (5,000 unit) tablet (Vitamin D3) clopidogrel 75 mg tablet 75 mg PO DAILY 04/13/25 04/18/25 History cyanocobalamin (vitamin B-12) 1,000 mcg PO DAILY 04/13/25 05/04/25 10:00 History 1,000 mcg capsule losartan 25 mg tablet 25 mg PO DAILY 04/13/25 05/04/25 10:00 History niacinamide 500 mg tablet 500 mg PO DAILY 04/13/25 05/04/25 10:00 History pantoprazole 40 mg tablet,delayed 40 mg PO DAILY 04/13/25 05/04/25 10:00 History release ropinirole 1 mg tablet 1 mg PO QHS 04/13/25 05/04/25 22:00 History oxycodone 5 mg tablet 5 mg PO Q6H PRN pain 3 days #14 04/25/25 05/03/25 13:00 Rx tabs phenazopyridine 100 mg tablet 100 mg PO TID #20 tabs 04/25/25 05/04/25 10:00 Rx (Pyridium) tamsulosin 0.4 mg capsule (Flomax) 0.4 mg PO DAILY #14 caps 04/25/25 05/04/25 10:00 Rx ciprofloxacin HCl 500 mg tablet 500 mg PO BID #6 tabs 05/06/25 Unknown Rx (Cipro) oxycodone 5 mg tablet 5 mg PO Q6H PRN pain 3 days #10 05/06/25 Unknown Rx tabs phenazopyridine 100 mg tablet 100 mg PO TID #14 tabs 05/06/25 Unknown Rx (Pyridium) tamsulosin 0.4 mg capsule (Flomax) 0.4 mg PO DAILY #10 caps 05/06/25 Unknown Rx cephalexin 500 mg capsule 500 mg PO Q6 #20 CAPSULES 05/12/25 Unknown Rx Allergy/AdvReac Type Severity Reaction Status Date / Time sulfamethoxazole (From AdvReac Intermediate Nausea/Vom/ Verified 05/12/25 10:07 Bactrim) Diarrhea trimethoprim (From Bactrim) AdvReac Intermediate Nausea/Vom/ Verified 05/12/25 10:07 Diarrhea Surgical History History of cardiac catheterization History of esophagogastroduodenoscopy (EGD) Hx of colonoscopy History of coronary artery stent placement Social History Smoking Status: Never smoker ROS ROS ED Constitutional Constitutional ED: Denies chills or fever(s) Eyes Eyes: Denies change in vision or diplopia ENT ENT ED: Denies rhinorrhea or sore throat Cardiovascular Cardiovascular: Denies chest pain or palpitations Respiratory/Chest Respiratory/Chest: Denies cough or dyspnea Gastrointestinal Gastrointestinal: Denies abdominal pain, diarrhea, nausea or vomiting Genitourinary Genitourinary ED: Reports difficulty urinating, dribbling and dysuria; Denies hematuria Musculoskeletal Musculoskeletal: Denies back pain or neck pain Integumentary Denies abscess or rash Neurologic Neurologic: Denies headache(s), paresthesias or weakness Psychiatric Psychiatric: Denies anxiety or suicidal thoughts EXAM Physical Exam Const Vital Signs: 05/12/25 10:06 Temperature 98 F Temperature Source Temporal Pulse Rate 76 Respiratory Rate 14 Blood Pressure 155/74 H Blood Pressure Mean 101 Pulse Ox 98 Oxygen Delivery Method Room Air Positive well nourished and well developed General Appearance ED: well developed and NAD HEENT Reports moist mucous membranes normocephalic and atraumatic Eyes PERRL and EOMs intact bilaterally Neck full ROM and supple Resp normal respiratory effort and clear to auscultation bilaterally Cardio regular rate, regular rhythm and no murmurs GI non-distended GI Narrative: Mild suprapubic tenderness, makes me feel like I need to urinate. No guarding or rebound, no other areas of tenderness. Auscultation: normoactive bowel sounds Palpation: soft Back/Spine no CVA tenderness General Back: other FROM Extremity normal to inspection General Extremety ED: Negative for edema, pulses abnormal or tenderness General Extremity: Negative for edema or pulses abnormal Neuro oriented x3, CN's II-XII intact bilaterally and no sensory deficits noted Sensorium / Orientation: awake and alert Motor Exam: strength 5/5 throughout Skin no rashes or lesions noted and no wounds MDM MDM MDM Narrative Medical decision making narrative: We did a bedside bladder scan, he was showing it was 300 cc so we placed a Yan catheter, 300 cc of nonbloody urine was removed, the patient felt much better. He was not able to urinate prior to that. Send for urinalysis, showed some indicators for infection including nitrite but very little white blood cell, my suspicion is that it is not infected but I am going to place him on a 5-day course of cephalexin anyway since he recently had instrumentation of the urinary tract. Patient to follow-up with urology after the weekend, I sent a urine culture. As I discussed with the patient, I do not think that his urinary retention has anything to do with the stent that was put in or removed, I think this is probably more likely related to his prostate. Lab Data Attestation: I reviewed the patient's lab results. Labs: Laboratory Results - last 24 hr 05/12/25 10:38 Urine Color Yellow Urine Clarity Clear Urine pH 7.0 Ur Specific [place] 1.005 Urine Protein 15 H Urine Glucose (UA) Normal Urine Ketones 5 H Urine Occult Blood 25 H Urine Nitrite Positive H Urine Bilirubin Negative Urine Urobilinogen 1 H Ur Leukocyte Esterase 25 H Urine RBC 0 SEEN Urine WBC 0-5 SEEN Ur Squamous Epith Cells 0 SEEN Urine Bacteria 0 SEEN Urine Mucus 0 SEEN Discharge Plan Triage Chief Complaint: Complaint ED Provider: James Andres Dx/Rx/DC Orders Clinical Impression: Acute urinary retention Instructions: ED Yan Catheter, Care, ED Urinary Retention, Male Prescriptions: New cephalexin 500 mg capsule 500 mg PO Q6 Qty: 20 0RF No Action atorvastatin 40 mg tablet 40 mg PO QHS clopidogrel 75 mg tablet 75 mg PO DAILY pantoprazole 40 mg tablet,delayed release (DR/EC) 40 mg PO DAILY ropinirole 1 mg tablet 1 mg PO QHS losartan 25 mg tablet 25 mg PO DAILY allopurinol 300 mg tablet 300 mg PO DAILY niacinamide 500 mg tablet 500 mg PO DAILY cyanocobalamin (vitamin B-12) 1,000 mcg capsule 1,000 mcg PO DAILY ascorbic acid (vitamin C) [C-500] 500 mg tablet 1 g PO DAILY cholecalciferol (vitamin D3) [Vitamin D3] 125 mcg (5,000 unit) tablet 125 mcg PO DAILY tamsulosin [Flomax] 0.4 mg capsule 0.4 mg PO DAILY Qty: 14 0RF phenazopyridine [Pyridium] 100 mg tablet 100 mg PO TID Qty: 20 0RF oxycodone 5 mg tablet 5 mg PO Q6H PRN (Reason: pain) 3 Days Qty: 14 0RF ciprofloxacin HCl [Cipro] 500 mg tablet 500 mg PO BID Qty: 6 0RF tamsulosin [Flomax] 0.4 mg capsule 0.4 mg PO DAILY Qty: 10 0RF phenazopyridine [Pyridium] 100 mg tablet 100 mg PO TID Qty: 14 0RF oxycodone 5 mg tablet 5 mg PO Q6H PRN (Reason: pain) 3 Days Qty: 10 0RF Primary Care Provider: Jarad Zamudio Referrals: Jarad Zamudio MD [Primary Care Provider] - Harjit Lam MD [Med Staff - Active Staff] - As soon as possible Print Language: Swazi Disposition Disposition: Home, Self Care
[2025-05-12 10:42] LABS: Mucous, Urine 0 SEEN /hpf (<or=2+); Red Blood Cells-Urine 0 SEEN /hpf (0-5); Squamous Epithelial Cells - UA 0 SEEN /hpf (0-5)
[2025-05-12 10:44] LABS: Color, Urine Yellow (Yellow); Glucose, Dipstick Normal (Normal); Ketone-Dipstick 5 mg/dl (Negative); Leukocyte Esterase-Dipstick 25 /ul (Negative); Nitrite-Dipstick Positive (Negative); Occult Blood-Urine 25 /ul (Negative); Protein-Dipstick 15 mg/dl (Negative); Specific Gravity, Urine 1.005 (1.002-1.030); Urine Bilirubin Dipstick Negative (Negative)
--- OUTSIDE RECORDS SUMMARY | 2025-05-12 11:11 | XMS RPT_ITS | CCD ---
Author Organization [facility] Care Team Providers Care [employer] Supervisor Name Role Phone Aramis Beaulieu Unavailable [phone] BARRETO, TRACE ETIENNE Unavailable Unavailable BEAULIEU, ENEIDAOPHTOO OSCAR Unavailable Unavaila ble BARRETO, TRACE ETIENNE Unavailable Unavailable BEAULIEU, CHRISTOPHER OSCAR Unavailable Unavaila ble BARRETO, TRACE ETIENNE Unavailable Unavailable BEAULIEU, ENEIDAOPHTOO OSCAR Unavailable Unavaila ble BEAULIEU, CHRISTOPHER Unavailable Unavailable BEAULIEU, CHRISTOPHER Unavailable Unavailable JUSTUS Unavailable Unavailable JUSTUS Unavailable Unavailable BEAULIEU, CHRISTOPHER Unavailable Unavailable Beaulieu, Christopher Unavailable Unavailable Beaulieu, Christopher Unavailable Unavailable Abrreto, Trace Unavailable Unavailable Barreto, Trcae Unavailable Unavailable Beaulieu, Christopher Unavailable Unavailable Beaulieu, Christopher Unavailable Unavailable Ivanauskas, Saulius Unavailable Unavailable Ivanauskas, Saulius Unavailable Unavailable Beaulieu, Christopher Unavailable Unavailable Davi, Gagan Bin Unavailable Unavailable Davi, Gagan Bin Unavailable Unavailable Bzaan, Isabela W Unavailable Unavailable Beaulieu, Christopher Unavailable [...] Unavailable Celine vailable PANDRANGI, ESA Unavailable Unavailable Candido Jarad Primary Care Provider Candido Jarad Primary Care Provider Jarad Rey MD Primary Care Provider Jarad Rey MD Primary Care Provider Jarad Rey Unavailable Candido SKY Jarad Primary Care Provider Tamra Rey MDavo Primary Care Provider Aramis Beaulieu MD Primary Care Provider JUSTIN OROZCO Admitting Unavailable ARAMIS BEAULIEU Primary Care Unavaila ble CANDIDO, JARAD Primary Care Unavailable YASMANY SMITH Admitting Unavailable YASMANY SMITH Attending Unavailable Candido SKY Jarad Primary Care Provider REY, JARAD Primary Care Unavailable REY, JARAD Primary Care Unavailable Candido KSY Jarad Primary Care Provider ISABELA BAZAN W Attending Unavailable REY, JARAD Primary Care Unavailable REY, JARAD Primary Care Unavailable BAZAN, ISABELA W Attending Unavailable REY, JARAD Primary Care Unavailable BAZAN, ISABELA W Attending Unavailable REY, JARAD Primary Care Unavailable BAZAN, ISABELA W Attending Unavailable REY, JARAD Primary Care Unavailable BAZAN, ISABELA W Attending Unavailable REY, JARAD Primary Care Unavailable BAZAN, ISABELA W Attending Unavailable REY, JARAD Primary Care Unavailable BAZANISABELA Gil Attending Unavailable REY, JARAD Primary Care Unavailable Candido SKY [facility] Primary Care Provider [phone] REY, JARAD Referring Unavailable REY, JARAD Primary Care Unavailable KAYLYNN ASHTON Attending Unavailable KAYLYNN ASHTON Referring Unavailable REY, JARAD Primary Care Unavailable Candido SKY, Dr. Abraham Primary Care Provider Melba Barr Attending Provider Cortney, Melba Referring Provider Brigitte SKY, Dr. Harjit Simms Attending Provider Brigitte SKY, Dr. Harjit Simms Referring Provider [phone] Brigitte SKY, Dr. Harjit Simms Admit Provider Harjit Lam Attending Unavailable Harjit Lam Referring Unavailable Rey, Jarad Primary Care Unavailable WeverMelba Referring Unavailable Rey, Jarad Primary Care Unavailable Melba Barr Attending Unavailable BrigitteHarjit Admitting Unavailable BrigitteHarjit Attending Unavailable Rey, Jarad Primary Care Unavailable REY, JARAD Primary Care Unavailable ZAK ALVAREZ Attending Unavailable REY, JARAD Primary Care Unavailable GABRIEL SOTO Attending Unavailable ABZANISABELA W Referring Unavailable REY, JARAD Primary Care Unavailable Allergies Allergy Classification Reported Allergen(s) Allergy Type Date of Onset Reaction(s) Facility (1 source) No Known Allergies; Translations: [No Known Allergies] Propensity to adverse reactions to drug (disorder) [facility] Repository (1 source) No Known Medication Allergies; Translations: [No Known Medication Allergies] Propensity to adverse reactions to drug (disorder) [facility] Repository (3 sources) Sulfamethoxazole / Trimethoprim; Translations: [SULFAMETHOXAZOLE-T RIMETHOPRIM] Drug Allergy 04-11-20 25 Nausea Only, Other, Drowsiness Bon Adriana [facility] (3 sources) Sulfamethoxazole Drug Allergy 04-13-20 25 Nausea/Vom/Kaylin [facility] (3 sources) Trimethoprim Drug Allergy 04-13-20 Nausea/Vom/Kaylin [facility] (1 source) Sulfamethoxazole Drug Allergy 04-25-20 [facility] Repository (1 source) Trimethoprim Drug Allergy 04-25-20 [facility] Repository Medications Current Medications Medication Drug Class(es) [...] days. 12 tablet 0 07/02/2021 07/05/2021 Active [id number] 200 actuat albuterol 0.09 mg/actuat metered dose [...] (20 sources) Xanthine Oxidase Inhibitor Start: 06-11-2023 take 1 tablet by mouth once daily Allopurinol 300 mg tablet Active 300 mg PO DAILY April 13, 2025 12:00am Start: 05-25-2015 allopurinol (Z YLOPRIM) 300 MG tablet Indications: Gout, unspecified cause, unspecified chronicity, unspecified site TAKE 1 TABLET DAILY 90 tablet 3 03/09/2022 Active ascorbic acid 500 mg oral tablet (20 sources) Start: 04-13-2025 take 1 tablet by [...] tablet (20 sources) HMG-CoA Reductase Inhibitor Start: 023 take 1 tablet by mouth at bedtime Atorvastatin 40 mg tablet Active 40 mg PO AT BEDTIME April 13, 2025 12:00am Start: 03-09-2022 atorvastatin ( LIPITOR) 20 MG tablet Indications: Coronary artery disease involving [place] coronary artery of [place] heart without angina pectoris TAKE 1 TABLET NIGHTLY 90 tablet 3 03/09/2022 Active Start: 06-12-2021 atorvastatin ( LIPITOR) 20 MG tablet Indications: Coronary artery disease involving [place] coronary artery of [place] heart without angina pectoris TAKE 1 TABLET NIGHTLY 90 tablet 3 06/12/2021 Active Start: 06-10-2020 atorvastatin ( LIPITOR) 20 MG tablet Indications: Coronary artery disease involving [place] coronary artery of [place] heart without angina pectoris TAKE 1 TABLET [...] 11/19/2023 Active cholecalciferol 0.125 mg oral tablet (20 sources) Vitamin D Start: 04-13-2025 take 1 [...] daily. Active ciprofloxacin 500 mg oral tablet (6 sources) Quinolone Antimicrobial Start: 04-25-2025 End: 05-05-2025 take 1 tablet by mouth twice daily Ciprofloxacin Hcl (Cipro) 500 mg tablet Active 500 mg PO TWICE A DAY 6 May 06, 2025 12:00am Start: 03-25-2025 End: 03-26-2025 400 [...] mg PO DAILY April 13, 2025 12:00am Start: 06-11-2023 clopidogrel (P LAVIX) 75 MG tablet Indications: Coronary artery disease involving [place] coronary artery of [place] heart without angina pectoris TAKE 1 TABLET DAILY 90 tablet 3 06/11/2023 Active Start: 03-09-2022 clopidogrel (P LAVIX) 75 MG tablet Indications: Coronary artery disease involving [place] coronary artery of [place] heart without angina pectoris TAKE 1 TABLET DAILY 90 tablet 3 03/09/2022 Active Start: 06-12-2021 clopidogrel (P LAVIX) 75 MG tablet Indications: Coronary artery disease involving [place] coronary artery of [place] heart without angina pectoris TAKE 1 TABLET DAILY 90 tablet 3 06/12/2021 Active Start: 06-10-2020 clopidogrel (P LAVIX) 75 MG tablet Indications: Coronary artery disease involving [place] coronary artery of [place] heart without angina pectoris TAKE 1 TABLET [...] (20 sources) Start: 03-06-2022 CPAP Machine M [facility] Indications: BUCK on CPAP by Does not [...] Active Start: 06-07-2019 take 1 capsule by [facility] once daily diltiazem (CARDIZEM CD) 120 MG extended release capsule Indications: PVC (premature ventricular contraction) Take 1 capsule by mouth daily 90 capsule 3 06/07/2019 Active Start: 05-03-2019 take 1 capsule by [facility] once daily diltiazem (CARDIZEM CD) 120 MG [...] AFFECTED AREAS OF THE SCALP AND LEFT ROMAN CATHOLIC TWICE DAILY FOR 3 WEEKS 04/24/2024 [...] sources) Angiotensin 2 Receptor Deep Start: 06-11-2023 take 1 tablet by mouth once daily Losartan 25 mg tablet Active 25 mg PO DAILY April 13, 2025 12:00am Start: 03-09-2022 losartan (COZA AR) 25 MG tablet Indications: Coronary artery disease involving [place] coronary artery of [place] heart without angina pectoris TAKE 1 TABLET DAILY 90 tablet 3 03/09/2022 Active Start: 06-12-2021 losartan (COZA AR) 25 MG tablet Indications: Coronary artery disease involving [place] coronary artery of [place] heart without angina pectoris TAKE 1 TABLET DAILY 90 tablet 3 06/12/2021 Active Start: 06-10-2020 losartan (COZA AR) 25 MG tablet Indications: Coronary artery disease involving [place] coronary artery of [place] heart without angina pectoris TAKE 1 TABLET [...] nightly Active niacinamide 500 mg oral tablet (3 sources) Start: 04-13-20 take 1 tablet by mouth once daily Niacinamide 500 mg tablet Active 500 mg PO DAILY April 13, 2025 12:00am nitroglycerin 0.4 mg sublingual tablet (18 sources) Nitrate Vasodilator Start: 06-11-20 23 nitroGLYCERIN (NITROSTAT) 0.4 MG SL tablet Indications: Coronary artery disease involving [place] coronary artery of [place] heart without angina pectoris Place 1 tablet under the tongue every 5 minutes as needed for Chest pain 25 tablet 06/11/2023 Active Start: 06-15-2022 nitroGLYCERIN (NITROSTAT) 0.4 MG SL tablet Indications: Coronary artery disease involving [place] coronary artery of [place] heart without angina pectoris Place 1 tablet under the tongue every 5 minutes as needed for Chest pain 25 tablet 0 06/15/2022 Active Start: 04-23-2015 nitroGLYCERIN (NITROSTAT) 0.4 MG SL tablet Indications: Coronary artery disease involving [place] coronary artery of [place] heart without angina pectoris Place 1 tablet under the tongue every 5 minutes as needed for Chest pain 25 tablet 0 06/12/2021 Active oxyCODONE hydrochloride 5 mg oral tablet (3 sources) Opioid Agonist Start: 04-25-2025 take 1 tablet by mouth every six hours as needed for pain Oxycodone 5 mg tablet Active 5 mg PO EVERY 6 HOURS as needed for pain 10 3 0 May 06, 2025 Calculus of kidney Calculus of kidney pantoprazole 40 mg delayed release oral tablet (20 sources) Proton Pump Inhibitor Start: 06-11-2023 take 1 tablet by mouth once daily Pantoprazole 40 mg tablet,delayed release (DR/EC) Active 40 mg PO DAILY April 13, 2025 12:00am Start: 05-25-2015 pantoprazole ( PROTONIX) 40 MG tablet Indications: Gastroesophageal reflux disease, unspecified whether esophagitis present TAKE 1 TABLET DAILY 90 tablet 3 03/09/2022 Active phenazopyridine hydrochloride 100 mg oral tablet (4 sources) Start: 04-25-2025 take 1 tablet by mouth three times daily Phenazopyridine (Pyridium) 100 mg tablet Active 100 mg PO THREE TIMES A DAY 14 0 May 06, 2025 12:00am Start: 11-09-2023 End: 11-09-2023 phenazopyridine [...] 1 each 05/06/2021 Active Start: 05-06-2021 [facility] Indications: BUCK on CPAP Auto PAP with mask and tubing 1 each 0 05/06/2021 Active rOPINIRole 1 mg oral tablet (20 sources) Nonergot Dopamine Agonist Start: 06-11-2023 take 1 tablet by mouth at bedtime Ropinirole 1 mg tablet Active 1 mg PO AT BEDTIME April 13, 2025 12:00am Start: 05-25-2015 rOPINIRole (RE QUIP) 1 MG [...] mL/hr, Administer over 1 Hours, Once, On Wed03/25/25 at 2150, For 1 dose Start: 02-27-2021 End: 02-27-2021 sodium chloride flush 0.9 % injection 10 mL tamsulosin hydrochloride 0.4 mg oral capsule (14 sources) alpha-Adrenergic Deep Start: 04-25-2025 take 1 capsule by mouth once daily Tamsulosin (Flomax) 0.4 mg capsule Active 0.4 mg PO DAILY 10 0 May 06, 2025 12:00am Start: 11-08-2023 End: 11-07-2024 take [...] Active vitamin b12 1 mg oral capsule (3 sources) Vitamin B12 Start: 04-13-2025 take 1 [...] mL, intravenous, Once in imaging, Starting on 05/04/25 at 2306, For 1 dose 100 ml [...] End: 05-05-2025 4 mg, intravenous, Once, On Wed05/05/25 at 0110, For 1 dose No Reported Medications (1 source) No Reported Medi cations Quantity: 0 Refills: 0 Ordered: 11-May-2018 DO Active 2 ml ondansetron 2 mg/ml injection (1 source) Serotonin-3 Receptor Antagonist Start: 05-04-2025 End: 05-04-2025 4 mg, intravenous, Once, On Wed05/04/25 at [...] heart disease (20 sources) Coronary arteriosclerosis in [place] artery; Translations: [Atherosclerotic heart disease of [place] coronary artery without angina pectoris] Onset: 6 05-20-2016 Chronic Coronary atherosclerosis and other heart disease (1 source) Coronary atherosclerosis and other heart disease Onset: 8 Disorders of lipid metabolism (20 sources) Dyslipidemia; [...] Unclassified (2 sources) Athscl heart disease of [place] coronary artery w/o ang pctrs / I25.10(ICD-9) [...] [Urinary tract infection, site not specified] Onset: 5 11-09-2023 Episodic Past or Other Problems Problem [...] obesity; Translations: [Obesity, unspecified] Onset: 07-08-2022 Resolved: 06-11-2023 06-11-2023 Chronic Unclassified (4 sources) Thallium stress test abnormal; Translations: [Patient encounter status] Onset: 11-27-2015 Resolved: 06-02-2017 06-02-2017 Episodic Unclassified (1 source) Basal cell carcinoma skin/ left lower limb, including hip; Translations: [Basal cell carcinoma skin/ left lower limb, including hip] Onset: 05-04-2018 Unclassified (1 source) BCCA LEFT LEG [id number] C44.719 Onset: 05-04-2018 Unclassified (16 sources) Onset: 10-07-2023 Resolved: 09-13-2024 10-07-2023 Results Test Name Value Interpretation Reference Range Facility Basic Metabolic Profile (BMP )on 05-08-2025 BUN Normal 4-19 [facility] Comment on above: Result Comment: Canc elled via OM: Order cancelled - Patient discharged Performed By: #### L 100.0100, L500.2500 #### [facility] [address] [place], [address] BUN/CRE Normal 10-20 [facility] Comment on above: Result Comment: Canc elled via OM: Order cancelled - Patient discharged Performed By: #### L 100.0100, L500.2500 #### [facility] [address] [place], [address] Calcium Normal 7.6-11.0 [facility] Comment on above: Result Comment: Canc elled via OM: Order cancelled - Patient discharged Performed By: #### L 100.0100, L500.2500 #### [facility] [address] [place], [address] CL Normal 98-108 [facility] Comment on above: Result Comment: Canc elled via OM: Order cancelled - Patient discharged Performed By: #### L 100.0100, L500.2500 #### [facility] [address] [place], [address] CO2 Normal 21.0-32.0 [facility] Comment on above: Result Comment: Canc elled via OM: Order cancelled - Patient discharged Performed By: #### L 100.0100, L500.2500 #### [facility] [address] [place], [address] CREAT,SERUM Normal 0.70-1.20 [facility] Comment on above: Result Comment: Canc elled via OM: Order cancelled - Patient discharged Performed By: #### L 100.0100, L500.2500 #### [facility] [address] [place], [address] eGFR Normal >60 [facility] Comment on above: Result Comment: Canc elled via OM: Order cancelled - Patient discharged Performed By: #### L 100.0100, L500.2500 #### [facility] [address] [place], [address] GAP Normal 5-15 [facility] Comment on above: Result Comment: Canc elled via OM: Order cancelled - Patient discharged Performed By: #### L 100.0100, L500.2500 #### [facility] [address] [place], [address] GLU Normal 70-99 [facility] Comment on above: Result Comment: Canc elled via OM: Order cancelled - Patient discharged Performed By: #### L 100.0100, L500.2500 #### [facility] [address] [place], [address] Potassium Normal 3.3-5.1 [facility] Comment on above: Result Comment: Canc elled via OM: Order cancelled - Patient discharged Performed By: #### L 100.0100, L500.2500 #### [facility] [address] [place], [address] Basic Metabolic Profile (BMP) Normal 133-145 [facility] Comment on above: Result Comment: Canc elled via OM: Order cancelled - Patient discharged Performed By: #### L 100.0100, L500.2500 #### [facility] [address] [place], [address] CBC W/Diff, Automatedon 09-0 9-2024 Absolute Neut Normal 2.0-7.7 [facility] Comment on above: Result Comment: Canc elled via OM: Order cancelled - Patient discharged Performed By: #### L 100.0100, L500.2500 #### [facility] [address] [place], [address] HCT Normal 40-54 [facility] Comment on above: Result Comment: Canc elled via OM: Order cancelled - Patient discharged Performed By: #### L 100.0100, L500.2500 #### [facility] [address] [place], [address] HGB Normal 13.0-16.5 [facility] Comment on above: Result Comment: Canc elled via OM: Order cancelled - Patient discharged Performed By: #### L 100.0100, L500.2500 #### [facility] [address] [place], [address] MCH Normal 27.0-32.0 [facility] Comment on above: Result Comment: Canc elled via OM: Order cancelled - Patient discharged Performed By: #### L 100.0100, L500.2500 #### [facility] [address] [place], [address] MCHC Normal 32-36 [facility] Comment on above: Result Comment: Canc elled via OM: Order cancelled - Patient discharged Performed By: #### L 100.0100, L500.2500 #### [facility] [address] [place], [address] MCV Normal 80-94 [facility] Comment on above: Result Comment: Canc elled via OM: Order cancelled - Patient discharged Performed By: #### L 100.0100, L500.2500 #### [facility] [address] [place], [address] NEUT% Normal 47-70 [facility] Comment on above: Result Comment: Canc elled via OM: Order cancelled - Patient discharged Performed By: #### L 100.0100, L500.2500 #### [facility] [address] [place], [address] PLT Normal 150-450 [facility] Comment on above: Result Comment: Canc elled via OM: Order cancelled - Patient discharged Performed By: #### L 100.0100, L500.2500 #### [facility] [address] [place], [address] RBC Normal 4.6-6.2 [facility] Comment on above: Result Comment: Canc elled via OM: Order cancelled - Patient discharged Performed By: #### L 100.0100, L500.2500 #### [facility] [address] [place], [address] RDW CV Normal 11.6-14.6 [facility] Comment on above: Result Comment: Canc elled via OM: Order cancelled - Patient discharged Performed By: #### L 100.0100, L500.2500 #### [facility] [address] [place], [address] RDW SD Normal 35.1-43.9 [facility] Comment on above: Result Comment: Canc elled via OM: Order cancelled - Patient discharged Performed By: #### L 100.0100, L500.2500 #### [facility] [address] [place], [address] WBC Normal 4.4-11.0 [facility] Comment on above: Result Comment: Canc elled via OM: Order cancelled - Patient discharged Performed By: #### L 100.0100, L500.2500 #### [facility] [address] [place], [address] Basic Metabolic Profile (BMP )on 05-07-2025 BUN Normal 4-19 [facility] Comment on above: Result Comment: Canc elled via OM: Order cancelled - Patient discharged Performed By: #### L 500.2500, L100.0100 ####[facility] [address] [place], [address] BUN/CRE Normal 10-20 [facility] Comment on above: Result Comment: Canc elled via OM: Order cancelled - Patient discharged Performed By: #### L 500.2500, L100.0100 ####[facility] [address] [place], [address] Calcium Normal 7.6-11.0 [facility] Comment on above: Result Comment: Canc elled via OM: Order cancelled - Patient discharged Performed By: #### L 500.2500, L100.0100 ####[facility] [address] [place], [address] CL Normal 98-108 [facility] Comment on above: Result Comment: Canc elled via OM: Order cancelled - Patient discharged Performed By: #### L 500.2500, L100.0100 ####[facility] [address] [place], [address] CO2 Normal 21.0-32.0 [facility] Comment on above: Result Comment: Canc elled via OM: Order cancelled - Patient discharged Performed By: #### L 500.2500, L100.0100 ####[facility] [address] [place], [address] CREAT,SERUM Normal 0.70-1.20 [facility] Comment on above: Result Comment: Canc elled via OM: Order cancelled - Patient discharged Performed By: #### L 500.2500, L100.0100 ####[facility] [address] [place], [address] eGFR Normal >60 [facility] Comment on above: Result Comment: Canc elled via OM: Order cancelled - Patient discharged Performed By: #### L 500.2500, L100.0100 ####[facility] [address] [place], [address] GAP Normal 5-15 [facility] Comment on above: Result Comment: Canc elled via OM: Order cancelled - Patient discharged Performed By: #### L 500.2500, L100.0100 ####[facility] [address] [place], [address] GLU Normal 70-99 [facility] Comment on above: Result Comment: Canc elled via OM: Order cancelled - Patient discharged Performed By: #### L 500.2500, L100.0100 ####[facility] [address] [place], [address] Potassium Normal 3.3-5.1 [facility] Comment on above: Result Comment: Canc elled via OM: Order cancelled - Patient discharged Performed By: #### L 500.2500, L100.0100 ####[facility] [address] [place], [address] Basic Metabolic Profile (BMP) Normal 133-145 [facility] Comment on above: Result Comment: Canc elled via OM: Order cancelled - Patient discharged Performed By: #### L 500.2500, L100.0100 ####[facility] [address] [place], [address] CBC W/Diff, Automatedon 09-0 -2024 Absolute Neut Normal 2.0-7.7 [facility] Comment on above: Result Comment: Canc elled via OM: Order cancelled - Patient discharged Performed By: #### L 500.2500, L100.0100 ####[facility] [address] [place], [address] HCT Normal 40-54 [facility] Comment on above: Result Comment: Canc elled via OM: Order cancelled - Patient discharged Performed By: #### L 500.2500, L100.0100 ####[facility] [address] [place], [address] HGB Normal 13.0-16.5 [facility] Comment on above: Result Comment: Canc elled via OM: Order cancelled - Patient discharged Performed By: #### L 500.2500, L100.0100 ####[facility] [address] [place], [address] MCH Normal 27.0-32.0 [facility] Comment on above: Result Comment: Canc elled via OM: Order cancelled - Patient discharged Performed By: #### L 500.2500, L100.0100 ####[facility] [address] [place], [address] MCHC Normal 32-36 [facility] Comment on above: Result Comment: Canc elled via OM: Order cancelled - Patient discharged Performed By: #### L 500.2500, L100.0100 ####[facility] [address] [place], [address] MCV Normal 80-94 [facility] Comment on above: Result Comment: Canc elled via OM: Order cancelled - Patient discharged Performed By: #### L 500.2500, L100.0100 ####[facility] [address] [place], [address] NEUT% Normal 47-70 [facility] Comment on above: Result Comment: Canc elled via OM: Order cancelled - Patient discharged Performed By: #### L 500.2500, L100.0100 ####[facility] [address] [place], [address] PLT Normal 150-450 [facility] Comment on above: Result Comment: Canc elled via OM: Order cancelled - Patient discharged Performed By: #### L 500.2500, L100.0100 ####[facility] [address] [place], [address] RBC Normal 4.6-6.2 [facility] Comment on above: Result Comment: Canc elled via OM: Order cancelled - Patient discharged Performed By: #### L 500.2500, L100.0100 ####[facility] [address] [place], [address] RDW CV Normal 11.6-14.6 [facility] Comment on above: Result Comment: Canc elled via OM: Order cancelled - Patient discharged Performed By: #### L 500.2500, L100.0100 ####[facility] [address] [place], [address] RDW SD Normal 35.1-43.9 [facility] Comment on above: Result Comment: Canc elled via OM: Order cancelled - Patient discharged Performed By: #### L 500.2500, L100.0100 ####[facility] [address] [place], [address] WBC Normal 4.4-11.0 [facility] Comment on above: Result Comment: Canc elled via OM: Order cancelled - Patient discharged Performed By: #### L 500.2500, L100.0100 ####[facility] [address] [place], [address] Absolute lymphocyte countOrd ered By: Harjit Lam on 05-06-2025 Lymphocytes Auto (Unsp spec) [#/Vol] 1.39 10*3/uL 0.83-4.51 [facility] Absolute neutrophil countOrd ered By: Harjit Lam on 05-06-2025 Neutrophils (Bld) [#/Vol] 6.2 10*3/uL 2.0-7.7 [facility] Anion gap in Serum or Plasma Ordered By: Harjit Lam on 05-06-2025 Anion gap [Moles/Vol] 7 mmol/L 5-15 [facility] Automated lymphocyte count a s percentage of total leukocytesOrdered By: Harjit Lam on 05-06-2025 Lymphocytes/100 WBC Auto (Unsp spec) 16.4 % Low 19-41 [facility] BUN/creatinine ratioOrdered By: Harjit Lam on 05-06-2025 Urea nitrogen/Creatinine [Mass ratio] 8.7 mg/mg Low 10-20 [facility] Basic Metabolic Profile (BMP )on 05-06-2025 BUN/CRE 8.7 RATIO Low 10-20 [facility] Comment on above: Performed By: #### L 100.0100, L500.2500 ####[facility] [address] [place], [address] Calcium [Mass/Vol] 8.1 mg/dL Normal 7.6-11.0 [facility] Comment on above: Performed By: #### L 100.0100, L500.2500 ####[facility] [address] [place], [address] Chloride [Moles/Vol] 111 mmol/L High 98-108 [facility] Comment on above: Performed By: #### L 100.0100, L500.2500 ####[facility] [address] [place], [address] CO2 [Moles/Vol] 22.0 mmol/L Normal 21.0-32.0 [facility] Comment on above: Performed By: #### L 100.0100, L500.2500 ####[facility] [address] [place], [address] Creatinine [Mass/Vol] 1.43 mg/dL High 0.70-1.20 [facility] Comment on above: Performed By: #### L 100.0100, L500.2500 ####[facility] [address] [place], [address] ECRCL 60.60 ml/min Normal 50-250 [facility] Comment on above: Performed By: #### L 100.0100, L500.2500 ####[facility] [address] [place], [address] GAP 7 Normal 5-15 [facility] Comment on above: Performed By: #### L 100.0100, L500.2500 ####[facility] [address] [place], [address] GFR/1.73 sq M.predicted among non-blacks MDRD (S/P/Bld) [Vol rate/Area] 53 mL/min/{1.73_m2} Low >60 [facility] Comment on above: Result Comment: mL/m in/1.73m2 CKD-EPI Creatinine Equation (2020) Performed By: #### L 100.0100, L500.2500 ####[facility] [address] [place], [address] Glucose [Mass/Vol] 101 mg/dL High 70-99 [facility] Comment on above: Performed By: #### L 100.0100, L500.2500 ####[facility] [address] [place], [address] Potassium [Moles/Vol] 4.0 mmol/L Normal 3.3-5.1 [facility] Comment on above: Performed By: #### L 100.0100, L500.2500 ####[facility] [address] [place], [address] Sodium [Moles/Vol] 140 mmol/L Normal 133-145 [facility] Comment on above: Performed By: #### L 100.0100, L500.2500 ####[facility] [address] [place], [address] Urea nitrogen [Mass/Vol] 12 mg/dL Normal 4-19 [facility] Comment on above: Performed By: #### L 100.0100, L500.2500 ####[facility] [address] [place], [address] Basophil percentageOrdered B y: Harjit Lam on 05-06-2025 Basophils/100 WBC (Bld) 0.4 % 0-1 [facility] CBC W/Diff, Automatedon Absolute Lymph 1.39 X10 3/uL Normal 0.83-4.51 [facility] Comment on above: Performed By: #### L 100.0100, L500.2500 ####[facility] [address] [place], [address] Absolute Neut 6.2 X10 3/uL Normal 2.0-7.7 [facility] Comment on above: Performed By: #### L 100.0100, L500.2500 ####[facility] [address] [place], [address] Basophils/100 WBC (Bld) 0.4 % Normal 0-1 [facility] Comment on above: Performed By: #### L 100.0100, L500.2500 ####[facility] [address] [place], [address] Eosinophils/100 WBC (Bld) 1.2 % Normal 0-5 [facility] Comment on above: Performed By: #### L 100.0100, L500.2500 ####[facility] [address] [place], [address] Erythrocyte distribution width (RBC) [Ratio] 13.6 % Normal 11.6-14.6 [facility] Comment on above: Performed By: #### L 100.0100, L500.2500 ####[facility] [address] [place], [address] Hematocrit (Bld) [Volume fraction] 36.5 % Low 40-54 [facility] Comment on above: Performed By: #### L 100.0100, L500.2500 ####[facility] [address] [place], [address] Hemoglobin (Bld) [Mass/Vol] 12.3 g/dL Low 13.0-16.5 [facility] Comment on above: Performed By: #### L 100.0100, L500.2500 ####[facility] [address] [place], [address] IG% 0.600 Normal 0.0-0.9 [facility] Comment on above: Result Comment: IG% - Immature Granulocytes (promyelocytes, myelocytes and metamyelocytes) > 1% indicates that a LEFT SHIFT is Present. Performed By: #### L 100.0100, L500.2500 ####[facility] [address] [place], [address] Lymphocytes/100 WBC (Bld) 16.4 % Low 19-41 [facility] Comment on above: Performed By: #### L 100.0100, L500.2500 ####[facility] [address] [place], [address] MCH (RBC) [Entitic mass] 31.9 pg Normal 27.0-32.0 [facility] Comment on above: Performed By: #### L 100.0100, L500.2500 ####[facility] [address] [place], [address] MCHC (RBC) [Mass/Vol] 33.7 g/dL Normal 32-36 [facility] Comment on above: Performed By: #### L 100.0100, L500.2500 ####[facility] [address] [place], [address] MCV (RBC) [Entitic vol] 94.6 fL High 80-94 [facility] Comment on above: Performed By: #### L 100.0100, L500.2500 ####[facility] [address] [place], [address] Monocytes/100 WBC (Bld) 8.9 % Normal 0-10 [facility] Comment on above: Performed By: #### L 100.0100, L500.2500 ####[facility] [address] [place], [address] Neutrophils/100 WBC (Bld) 72.5 % High 47-70 [facility] Comment on above: Performed By: #### L 100.0100, L500.2500 ####[facility] [address] [place], [address] Nucleated RBC (Bld) [#/Vol] 0 10*3/uL Normal 0-5 [facility] Comment on above: Performed By: #### L 100.0100, L500.2500 ####[facility] [address] [place], [address] Platelet mean volume (Bld) [Entitic vol] 8.8 fL Normal 6.2-12.0 [facility] Comment on above: Performed By: #### L 100.0100, L500.2500 ####[facility] [address] [place], [address] Platelets (Bld) [#/Vol] 163 10*3/uL Normal 150-450 [facility] Comment on above: Performed By: #### L 100.0100, L500.2500 ####[facility] [address] [place], [address] RBC (Bld) [#/Vol] 3.86 10*6/uL Low 4.6-6.2 [facility] Comment on above: Performed By: #### L 100.0100, L500.2500 ####[facility] [address] [place], [address] RDW SD 47.3 fl High 35.1-43.9 [facility] Comment on above: Performed By: #### L 100.0100, L500.2500 ####[facility] [address] [place], [address] WBC (Bld) [#/Vol] 8.5 10*3/uL Normal 4.4-11.0 [facility] Comment on above: Performed By: #### L 100.0100, L500.2500 ####[facility] [address] [place], [address] Carbon dioxide, total [Moles /volume] in Central venous bloodOrdered By: Harjit Lam on 05-06-2025 CO2 [Moles/Vol] 22.0 mmol/L 21.0-32.0 [facility] Chloride assayOrdered By: Maria Elena Lam on 05-06-2025 Chloride [Moles/Vol] 111 mmol/L High 98-108 [facility] Eosinophil percentageOrdered By: Harjit Lam on 05-06-2025 Eosinophils/100 WBC (Bld) 1.2 % 0-5 [facility] Erythrocyte distribution wid th ratioOrdered By: Harjit Lam on 05-06-2025 Erythrocyte distribution width (RBC) [Ratio] 13.6 % 11.6-14.6 [facility] Erythrocyte distribution wid th standard deviationOrdered By: Harjit Lam on 05-06-2025 Erythrocyte distribution width (RBC) [Ratio] 47.3 fl High 35.1-43.9 [facility] Glomerular filtration rate ( GFR) estimation/1.73 sq m using serum, plasma, or whole bOrdered By: Harjit Lam on 05-06-2025 GFR/1.73 sq M.predicted among non-blacks MDRD (S/P/Bld) [Vol rate/Area] 53 mL/min/{1.73_m2} Low >60 [facility] Comment on above: mL/min/1.73m2 CKD-EP I Creatinine Equation (2020) Hematocrit Auto (Bld) [Volum e fraction]Ordered By: Harjit Lam on 05-06-2025 Hematocrit (Bld) [Volume fraction] 36.5 % Low 40-54 [facility] Hemoglobin measurementOrdere d By: Harjit Lam on 05-06-2025 Hemoglobin (Bld) [Mass/Vol] 12.3 g/dL Low 13.0-16.5 [facility] Immature granulocytes/100 WB C Auto (Bld)Ordered By: Harjit Lam on 05-06-2025 Immature granulocytes/100 WBC (Bld) 0.600 % 0.0-0.9 [facility] Comment on above: IG% - Immature Granu locytes (promyelocytes, myelocytes and metamyelocytes) > 1% indicates that a LEFT SHIFT is Present. MCV (mean corpuscular volume ) determinationOrdered By: Harjit Lam on 05-06-2025 MCV (RBC) [Entitic vol] 94.6 fL High 80-94 [facility] Mean corpuscular hemoglobin (MCH) determinationOrdered By: Harjit Lam on 05-06-2025 MCH (RBC) [Entitic mass] 31.9 pg 27.0-32.0 [facility] Mean corpuscular hemoglobin concentration (MCHC) determinationOrdered By: Harjit Lam on 05-06-2025 MCHC (RBC) [Mass/Vol] 33.7 g/dL 32-36 [facility] Mean platelet volume determi nationOrdered By: Harjit Lam on 05-06-2025 Platelet mean volume (Bld) [Entitic vol] 8.8 fL 6.2-12.0 [facility] Monocyte percentageOrdered B y: Harjit Lam on 05-06-2025 Monocytes/100 WBC (Bld) 8.9 % 0-10 [facility] Neutrophil percentageOrdered By: Harjit Lam on 05-06-2025 Neutrophils/100 WBC (Bld) 72.5 % High 47-70 [facility] Nucleated red blood cell per centageOrdered By: Harjit Lam on 05-06-2025 Nucleated RBC/100 WBC (Bld) [Ratio] 0 % 0-5 [facility] Platelet countOrdered By: Maria Elena Lam on 05-06-2025 Platelets (Bld) [#/Vol] 163 10*3/uL 150-450 [facility] Potassium measurement (mass/ volume)Ordered By: Harjit Lam on 05-06-2025 Potassium (Unsp spec) [Mass/Vol] 4.0 mmol/L 3.3-5.1 [facility] RBC Auto (Bld) [#/Vol]Ordere d By: Harjit Lam on 05-06-2025 RBC (Bld) [#/Vol] 3.86 10*6/uL Low 4.6-6.2 [facility] Serum creatinine measurement (mass/volume)Ordered By: Harjit Lam on 05-06-2025 Creatinine [Mass/Vol] 1.43 mg/dL High 0.70-1.20 [facility] Serum glucose measurement (m ass/volume)Ordered By: Harjit Lam on 05-06-2025 Glucose [Mass/Vol] 101 mg/dL High 70-99 [facility] Serum or plasma calcium eduardo urement (mass/volume)Ordered By: Harjit Lam on 05-06-2025 Calcium [Mass/Vol] 8.1 mg/dL 7.6-11.0 [facility] Serum or plasma urea nitroge n measurement (mass/volume)Ordered By: Harjit Lam on 05-06-2025 Urea nitrogen [Mass/Vol] 12 mg/dL 4-19 [facility] Sodium levelOrdered By: Harjit Lam on 05-06-2025 Sodium [Moles/Vol] 140 mmol/L 133-145 [facility] White blood cell (WBC) count Ordered By: Harjit Lam on 05-06-2025 WBC (Bld) [#/Vol] 8.5 10*3/uL 4.4-11.0 [facility] 12 Lead EKGon 05-05-2025 12 Lead EKG [facility] [address] [place] [address] 12 Lead EKG 05/05/25 0700 MR#: [id number] Acct: [id number] Name: RAMON COSTA Rep #: [id number] : [id number] From: Adrian Russ MD Attending Dr: Dr. Harjit Lam MD Status: DIS PORSHA Ordering Dr: Shankar Torres MD Date: 05/05/25 Location: [facility] Sex: M C Admitted: 05/05/25 Test Reason : PREOP Blood Pressure : */* mmHG Vent. Rate : 69 BPM Atrial Rate : 69 BPM P-R Int : 158 ms QRS Dur : 82 ms QT Int : 404 ms P-R-T Axes : 44 -6 29 degrees QTcB Int : 432 ms Sinus rhythm with occasional Premature ventricular complexes Otherwise normal ECG No previous ECGs available Confirmed by Adrian Russ ([id number]), social media editor ROXY OBRIEN ([id number]) on 05/08/2025 10:17:08 AM Referred By: BRIGITTE Confirmed By: Adrian Russ 05/08/25 1017 Date Adrian Russ MD CC: Dr. Shankar Torres MD; Dr. Harjit Lam MD; Jarad Rye MD Signed Normal [facility] Basic Metabolic Profile (BMP )on 05-05-2025 BUN/CRE 7.8 RATIO Low 10-20 [facility] Comment on above: Performed By: #### L 500.2500 #### [facility] [address] [place], [place], [id number] Calcium [Mass/Vol] 8.8 mg/dL Normal 7.6-11.0 [facility] Comment on above: Performed By: #### L 500.2500 #### [facility] [address] [place], [address] Chloride [Moles/Vol] 106 mmol/L Normal 98-108 [facility] Comment on above: Performed By: #### L 500.2500 #### [facility] [address] [place], [address] CO2 [Moles/Vol] 20.0 mmol/L Low 21.0-32.0 [facility] Comment on above: Performed By: #### L 500.2500 #### [facility] [address] [place], [address] Creatinine [Mass/Vol] 1.52 mg/dL High 0.70-1.20 [facility] Comment on above: Performed By: #### L 500.2500 #### [facility] [address] [place], [address] ECRCL 57.01 ml/min Normal 50-250 [facility] Comment on above: Performed By: #### L 500.2500 #### [facility] [address] [place], [address] GAP 12 Normal 5-15 [facility] Comment on above: Performed By: #### L 500.2500 #### [facility] [address] [place], [address] GFR/1.73 sq M.predicted among non-blacks MDRD (S/P/Bld) [Vol rate/Area] 50 mL/min/{1.73_m2} Low >60 [facility] Comment on above: Result Comment: mL/m in/1.73m2 CKD-EPI Creatinine Equation (2020) Performed By: #### L 500.2500 #### [facility] [address] [place], [address] Glucose [Mass/Vol] 116 mg/dL High 70-99 [facility] Comment on above: Performed By: #### L 500.2500 #### [facility] [address] [place], [address] Potassium [Moles/Vol] 3.6 mmol/L Normal 3.3-5.1 [facility] Comment on above: Performed By: #### L 500.2500 #### [facility] [address] [place], [address] Sodium [Moles/Vol] 138 mmol/L Normal 133-145 [facility] Comment on above: Performed By: #### L 500.2500 #### [facility] [address] [place], [address] Urea nitrogen [Mass/Vol] 12 mg/dL Normal 4-19 [facility] Comment on above: Performed By: #### L 500.2500 #### [facility] [address] [place], [address] CBC W/Diff, Automatedon 09-0 6-2025 Absolute Lymph 2.05 X10 3/uL Normal 0.83-4.51 [facility] Comment on above: Performed By: #### L 100.0100 #### [facility] [address] [place], [address] Absolute Neut 8.7 X10 3/uL High 2.0-7.7 [facility] Comment on above: Performed By: #### L 100.0100 #### [facility] [address] [place], [address] Basophils/100 WBC (Bld) 0.2 % Normal 0-1 [facility] Comment on above: Performed By: #### L 100.0100 #### [facility] [address] [place], [address] Eosinophils/100 WBC (Bld) 0.5 % Normal 0-5 [facility] Comment on above: Performed By: #### L 100.0100 #### [facility] [address] [place], [address] Erythrocyte distribution width (RBC) [Ratio] 13.3 % Normal 11.6-14.6 [facility] Comment on above: Performed By: #### L 100.0100 #### [facility] [address] [place], [address] Hematocrit (Bld) [Volume fraction] 43.0 % Normal 40-54 [facility] Comment on above: Performed By: #### L 100.0100 #### [facility] [address] [place], [address] Hemoglobin (Bld) [Mass/Vol] 14.9 g/dL Normal 13.0-16.5 [facility] Comment on above: Performed By: #### L 100.0100 #### [facility] [address] [place], [address] IG% 0.600 Normal 0.0-0.9 [facility] Comment on above: Result Comment: IG% - Immature Granulocytes (promyelocytes, myelocytes and metamyelocytes) > 1% indicates that a LEFT SHIFT is Present. Performed By: #### L 100.0100 #### [facility] [address] [place], [address] Lymphocytes/100 WBC (Bld) 17.1 % Low 19-41 [facility] Comment on above: Performed By: #### L 100.0100 #### [facility] [address] [place], [address] MCH (RBC) [Entitic mass] 32.0 pg Normal 27.0-32.0 [facility] Comment on above: Performed By: #### L 100.0100 #### [facility] [address] [place], [address] MCHC (RBC) [Mass/Vol] 34.7 g/dL Normal 32-36 [facility] Comment on above: Performed By: #### L 100.0100 #### [facility] [address] [place], [address] MCV (RBC) [Entitic vol] 92.5 fL Normal 80-94 [facility] Comment on above: Performed By: #### L 100.0100 #### [facility] [address] [place], [address] Monocytes/100 WBC (Bld) 8.5 % Normal 0-10 [facility] Comment on above: Performed By: #### L 100.0100 #### [facility] [address] [place], [address] Neutrophils/100 WBC (Bld) 73.1 % High 47-70 [facility] Comment on above: Performed By: #### L 100.0100 #### [facility] [address] [place], [address] Nucleated RBC (Bld) [#/Vol] 0 10*3/uL Normal 0-5 [facility] Comment on above: Performed By: #### L 100.0100 #### [facility] [address] [place], [address] Platelet mean volume (Bld) [Entitic vol] 8.4 fL Normal 6.2-12.0 [facility] Comment on above: Performed By: #### L 100.0100 #### [facility] [address] [place], [address] Platelets (Bld) [#/Vol] 191 10*3/uL Normal 150-450 [facility] Comment on above: Performed By: #### L 100.0100 #### [facility] Laboratory [address] [place], [address] RBC (Bld) [#/Vol] 4.65 10*6/uL Normal 4.6-6.2 [facility] Comment on above: Performed By: #### L 100.0100 #### [facility] [address] [place], [address] RDW SD 45.0 fl High 35.1-43.9 [facility] Comment on above: Performed By: #### L 100.0100 #### [facility] [address] [place], [address] WBC (Bld) [#/Vol] 12.0 10*3/uL High 4.4-11.0 [facility] Comment on above: Performed By: #### L 100.0100 #### [facility] [address] [place], [address] MR/POSTOP.ANEon 05-05-2025 MR/POSTOP.[facility] Medical Records Department [address] [place] [address] Anesthesia Postop Eval I 05/05/25 1004 MR#: [id number] Acct: [id number] Name: RAMON COSTA Rep #: [id number] : 1955 69 From: Shankar Torres MD PCP: Jarad Rey MD Status:ADM PORSHA Y Race: C Location: [place] [address] Anesthesia: Postop Eval I Current Vital Signs Temperature: 96.8 F Pulse Rate: 76 Blood Pressure: 142/71 Respiratory Rate: 16 Pulse Ox: 100 Oxygen Delivery Method: Room Air Assessment Airway patent: Yes Spontaneous unlabored respirations: Yes Mental status: Awake nausea: No Vomiting: No Anesthesia Complication: Yes Anesthesia Complication Comment:: pinched right upper lip during intubation with glidescope while manipulating position for ET placement. cleaned. patient notified/aware Fluid Hydration Crystalloid volume administer (ml): 800 Total IV fluid infused: 800 Progress Note Anesthesia document: Postop Eval 1 completed: Yes 05/05/25 1014 Date Shankar Torres MD Cosigner Signature: Date CC: Signed Normal [facility] MR/EPHKIYLJ1aj 05-05-2025 MR/POSTOPAN2 [facility] Medical Records Department [address] [place] [address] Anesthesia Postop Eval II 05/05/25 1014 MR#: [id number] Acct: [id number] Name: RAMON COSTA Rep #: [id number] : 1955 69 From: Shankar Torres MD PCP: Jarad Rey MD Status:ADM PORSHA Y Race: C Location: [place] [address] Anesthesia Postop Eval I Sum Postop Eval Completion status Anesthesia document: Postop Eval 1 completed: Yes Anesthesia Postop Eval I Summary Anesthesia Postop Eval I Summary: Anesthesia Postop Eval I: Assessment Summary Airway patent Yes 05/05/25 10:13 Spontaneous unlabored Yes 05/05/25 10:13 respirations Mental status Awake 05/05/25 10:13 nausea No 05/05/25 10:13 Vomiting No 05/05/25 10:13 Anesthesia Postop Eval I: Fluid Summary Crystalloid volume administer 800 05/05/25 10:14 (ml) Colloids volume administered ( ml) Blood Product volume administered (ml) Total IV fluid infused 800 05/05/25 10:14 Anesthesia Postop Eval I: Summary Notes Anesthesia Complication Yes 05/05/25 10:13 Anesthesia Complication pinched right 05/05/25 10:14 Comment: upper lip during intubation with glidescope while manipulating position for ET placement. cleaned . patient notified /aware Post-operative progress note Anesthesia: Postop Eval II Evaluation Mental status: Awake and Calm Pain Level: 0 nausea: No Vomiting: No 05/05/25 1015 Date Shankar Burnettetoo Signature: Date CC: Signed Normal [facility] Operative Reporton 5 Operative Report [facility] Medical Records Department [address] [place] [address] Operative Report 05/05/25 0943 MR#: [id number] Acct: [id number] Name: RAMON COSTA Rep #: [id number] : 1955 69 From: Harjit Lam MD PCP: Jarad Rey MD Status:ADM PORSHA Location: [place] [address] Operative Report (Standard) Operative Information Date of Procedure: 05/05/25 Pre-Operative Diagnosis: Right ureteral calculi status post ESWL with multiple fragments in the ureter Post-Operative Diagnosis: The same Surgery/Procedure Performed: Cystoscopy right ureteroscopy laser lithotripsy of stones in the ureter and right stent placement dragline oiler: No Type of Anesthesia: General RN Documented Start/Stop Times: Operation Date: 05/05/25 07:40 Case Time Anesthesia Start 05/05/25 07:44 Into Room 05/05/25 07:44 Procedure Start 05/05/25 08:04 Procedure Start Time: 08:04 Procedure Stop Time: 09:44 Select all DRAINS/GRAFTS/IMPLANTS that apply: Drains Drain details: 6 Macanese by 26 cm stent Estimated Blood Loss: 10 cc Specimen collected: No Description of surgery: Indication 69-year-old male who underwent shockwave lithotripsy about a week and a half ago stone did break up really well on x-ray stent was removed and and then he presented to outside emergency room with severe pain CAT scan showed that multiple stone fragments in the ureter that have blocked his right kidney so he was transferred over and taken to surgery today to laser out these stone fragments that are not been able to pass through the ureter. Patient was taken back to the operating room after the induction of anesthesia he was placed in dorsolithotomy position. I went into the bladder with a 21 Macanese rigid cystourethroscope put a wire up the right kidney and then over the wire went in with a flexible ureteroscope was able to get into the ureter and immediately encountered a significant burden of stones in the distal ureter I used a 200 ???m laser fiber and slowly lasered the stones in the little pieces I then backed out of the ureter and let the fragments pass then went up the ureter further and encountered another significant burden of stone stuck in the ureter very carefully lasered the stones and then backed out of the ureter and let these fragments pass and then finally went up to the proximal ureter and encountered the last fragment of stones in the ureter these were lasered completely and then backed out of the ureter and these all these fragments passed up and up to the kidney finally was able to get the entire ureter clear went all the way to kidney found a small pocket of stones in the midpole these were lasered little tiny pieces no other major fragments were seen I then put a wire up or my way down the ureter no other stone stent fragment seen along the ureter all the major fragments and passed the put a stent up on the right kidney the stent coiled in the bladder and in the kidney I had to push a stent little bit back in the prostate but eventually coiled properly and the stent coiled in the kidney bladder in good position. After successfully lasering all the fragments that were in the ureter will see him in 10 days to remove stent Surgical Findings: Stones in the ureter all lasered and removed from the ureter stent placed Complications Complications: Yes Complication Details: stones stuck in ureter some mucosal tearing in the ureter from stone and lasering stone Admit VTE Documentation VTE Present on Admission: No VTE Mechan Device Prophylaxis: SCD's VTE Pharm Prophylaxis ordered?: No 05/05/25 0989 Cosigner Signature (if applicable): CC: Dr. Harjit Lam MD; Jarad Rey MD Signed Normal [facility] Bacteriaon 05-04-2025 Bacteria identified Cx Nom (U) Test: Urine Culture Specimen Source: Clean Catch/Voided Specimen Type: Urine Specimen Date: 05/04/20252313 Result Date: 05/06/2025725 Result Status: Final result Abnormal: No Resulting Lab: [facility] [address] [place] [id number] CULTURE No growth Normal [facility] Comment on above: Performed By: #### 5 7021-8 #### SORIANO SHIRLEY ([id number]) [facility] ([facility]) [address] [place] [address] CBC W Auto Differential pane l (Bld)on 05-04-2025 Basophils (Bld) [#/Vol] 0.03 10*3/uL [facility] Basophils/100 WBC (Bld) 0.3 % 0.0 - 2.0 % [facility] Eosinophils (Bld) [#/Vol] 0.04 10*3/uL [facility] Eosinophils/100 WBC (Bld) 0.3 % 0.0 - 6.0 % [facility] Erythrocyte distribution width (RBC) [Ratio] 13.1 % 11.5 - 14.5 % [facility] Hematocrit (Bld) [Volume fraction] 43.6 % 41.0 - 52.0 % [facility] Hemoglobin (Bld) [Mass/Vol] 14.8 g/dL 13.5 - 17.5 g/dL [facility] Immature granulocytes (Bld) [#/Vol] 0.04 10*3/uL [facility] Immature granulocytes/100 WBC (Bld) 0.3 % 0.0 - 0.9 % [facility] Comment on above: Immature Granulocyte Count (IG) includes promyelocytes, myelocytes and metamyelocytes but does not include bands. Percent differential counts (%) should be interpreted in the context of the absolute cell counts (cells/UL). Interpretation and review of laboratory results Abnormal [facility] Lymphocytes (Bld) [#/Vol] 1.25 10*3/uL [facility] Lymphocytes/100 WBC (Bld) 10.9 % 13.0 - 44.0 % [facility] MCH (RBC) [Entitic mass] 31.4 pg 26.0 - 34.0 pg [facility] MCHC (RBC) [Mass/Vol] 33.9 g/dL 32.0 - 36.0 g/dL [facility] MCV (RBC) [Entitic vol] 92 fL 80 - 100 fL [facility] Monocytes (Bld) [#/Vol] 0.82 10*3/uL [facility] Monocytes/100 WBC (Bld) 7.1 % 2.0 - 10.0 % [facility] Neutrophils (Bld) [#/Vol] 9.34 10*3/uL High [facility] Comment on above: Percent differential counts (%) should be interpreted in the context of the absolute cell counts (cells/uL). Neutrophils/100 WBC (Bld) 81.1 % 40.0 - 80.0 % [facility] Nucleated RBC/100 WBC (Bld) [Ratio] 0.0 % [facility] Platelets (Bld) [#/Vol] 190 10*3/uL [facility] RBC (Bld) [#/Vol] 4.72 10*6/uL [facility] WBC (Bld) [#/Vol] 11.5 10*3/uL [facility] Basophils (Bld) [#/Vol] 0.03 x10*3/uL Normal 0.00-0.10 [facility] Comment on above: Performed By: #### 5 7021-8 #### CHRISTIE WATSON ([id number]) [facility] ([facility]) [address] [place] [address] Basophils/100 WBC (Bld) 0.3 % Normal 0.0-2.0 [facility] Comment on above: Performed By: #### 5 7021-8 #### CHRISTIE WATSON ([id number]) [facility] ([facility]) [address] [place] [address] 38392 Eosinophils (Bld) [#/Vol] 0.04 x10*3/uL Normal 0.00-0.70 [facility] Comment on above: Performed By: #### 5 7021-8 #### CHRISTIE WATSON ([id number]) [facility] ([facility]) [address] [place] [address] 95956 Eosinophils/100 WBC (Bld) 0.3 % Normal 0.0-6.0 [facility] Comment on above: Performed By: #### 5 7021-8 #### CHRISTIE WATSON ([id number]) [facility] ([facility]) [address] [place] [address] Erythrocyte distribution width (RBC) [Ratio] 13.1 % Normal 11.5-14.5 [facility] Comment on above: Performed By: #### 5 7021-8 #### CHRISTIE WATSON ([id number]) [facility] ([facility]) [address] [place] [address] Hematocrit (Bld) [Volume fraction] 43.6 % Normal 41.0-52.0 [facility] Comment on above: Performed By: #### 5 7021-8 #### CHRISTIE WATSON ([id number]) [facility] ([facility]) [address] [place] [address] Hemoglobin (Bld) [Mass/Vol] 14.8 g/dL Normal 13.5-17.5 [facility] Comment on above: Performed By: #### 5 7021-8 #### CHRISTIE WATSON ([id number]) [facility] ([facility]) [address] [place] [address] Immature granulocytes (Bld) [#/Vol] 0.04 x10*3/uL Normal 0.00-0.70 [facility] Comment on above: Performed By: #### 5 7021-8 #### CHRISTIE WATSON ([id number]) [facility] ([facility]) [address] [place] [address] Immature granulocytes/100 WBC (Bld) 0.3 % Normal 0.0-0.9 [facility] Comment on above: Result Comment: Reshma ture Granulocyte Count (IG) includes promyelocytes, myelocytes and metamyelocytes but does not include bands. Percent differential counts (%) should be interpreted in the context of the absolute cell counts (cells/UL). Performed By: #### 5 7021-8 #### CHRISTIE WATSON ([id number]) [facility] ([facility]) [address] [place] [address] Lymphocytes (Bld) [#/Vol] 1.25 x10*3/uL Normal 1.20-4.80 [facility] Comment on above: Performed By: #### 5 7021-8 #### CHRISTIE WATSON ([id number]) [facility] ([facility]) [address] [place] [address] 527[address] Lymphocytes/100 WBC (Bld) 10.9 % Normal 13.0-44.0 [facility] Comment on above: Performed By: #### 5 7021-8 #### CHRISTIE WATSON ([id number]) [facility] ([facility]) [address] [place] [address] 34064 MCH (RBC) [Entitic mass] 31.4 pg Normal 26.0-34.0 [facility] Comment on above: Performed By: #### 5 7021-8 #### CHRISTIE WATSON ([id number]) [facility] ([facility]) [address] [place] [address] 92763 MCHC (RBC) [Mass/Vol] 33.9 g/dL Normal 32.0-36.0 [facility] Comment on above: Performed By: #### 5 7021-8 #### CHRISTIE WATSON ([id number]) [facility] ([facility]) [address] [place] [address] 52457 MCV (RBC) [Entitic vol] 92 fL Normal 80-100 [facility] Comment on above: Performed By: #### 5 7021-8 #### CHRISTIE WATSON ([id number]) [facility] ([facility]) [address] [place] [address] 96663 Monocytes (Bld) [#/Vol] 0.82 x10*3/uL Normal 0.10-1.00 [facility] Comment on above: Performed By: #### 5 7021-8 #### CHRISTIE WATSON ([id number]) [facility] ([facility]) [address] [place] [address] 48266 Monocytes/100 WBC (Bld) 7.1 % Normal 2.0-10.0 [facility] Comment on above: Performed By: #### 5 7021-8 #### CHRISTIE WATSON ([id number]) [facility] ([facility]) [address] [place] [address] 72927 Neutrophils (Bld) [#/Vol] 9.34 x10*3/uL High 1.20-7.70 [facility] Comment on above: Result Comment: Perc ent differential counts (%) should be interpreted in the context of the absolute cell counts (cells/uL). Performed By: #### 5 7021-8 #### CHRISTIE WATSON ([id number]) [facility] ([facility]) [address] [place] [address] 75242 Neutrophils/100 WBC (Bld) 81.1 % Normal 40.0-80.0 [facility] Comment on above: Performed By: #### 5 7021-8 #### CHRISTIE WATSON ([id number]) [facility] ([facility]) [address] [place] [address] 82427 Nucleated RBC/100 WBC (Bld) [Ratio] 0.0 /100 WBCs Normal 0.0-0.0 [facility] Comment on above: Performed By: #### 5 7021-8 #### CHRISTIE WATSON ([id number]) [facility] ([facility]) [address] [place] [address] 74791 Platelets (Bld) [#/Vol] 190 x10*3/uL Normal 150-450 [facility] Comment on above: Performed By: #### 5 7021-8 #### CHRISTIE WATSON ([id number]) [facility] ([facility]) [address] [place] [address] 91718 RBC (Bld) [#/Vol] 4.72 x10*6/uL Normal 4.50-5.90 [facility] Comment on above: Performed By: #### 5 7021-8 #### CHRISTIE WATSON ([id number]) [facility] ([facility]) [address] [place] [address] 16623 WBC (Bld) [#/Vol] 11.5 x10*3/uL High 4.4-11.3 [facility] Comment on above: Performed By: #### 5 7021-8 #### CHRISTIE WATSON ([id number]) [facility] ([facility]) [address] [place] [address] ABDOMEN PELVIS W IV CONTR Emanuel 05-04-2025 CT ABDOMEN PELVIS W IV CONTRAST Interpreted By: Andrew Sosa, STUDY: CT ABDOMEN PELVIS W IV CONTRAST; 05/04/2025 11:06 pm INDICATION: Signs/Symptoms:Abdominal pain, history of kidney stones, nausea or vomiting. COMPARISON: CT ABDOMEN PELVIS WO IV CONTRAST 03/25/2025 ACCESSION NUMBER(S): [id number] ORDERING CLINICIAN: ELICIA LOVE TECHNIQUE: Axial CT [...] Andrew Sosa 05/04/2025 11:53 PM Dictation workstation: [id number] [facility] CT Abdomen and Pelvis W cont rast [...] Andrew Sosa 05/04/2025 11:53 PM Dictation workstation: [id number] [facility] Interpreted By: Andrew Sosa, STUDY: CT ABDOMEN PELVIS W IV CONTRAST; 05/04/2025 11:06 pm INDICATION: Signs/Symptoms:Abdominal pain, history of kidney stones, nausea or vomiting. COMPARISON: CT ABDOMEN PELVIS WO IV CONTRAST 03/25/2025 ACCESSION NUMBER(S): [id number] ORDERING CLINICIAN: ELICIA LOVE TECHNIQUE: Axial CT [...] PELVIS WO IV CONTRAST 03/25/2025 ACCESSION NUMBER(S): [id number] ORDERING CLINICIAN: ELICIA LOVE TECHNIQUE: Axial CT [...] Andrew Sosa 05/04/2025 11:53 PM Dictation workstation: [id number] [facility] Work Phone: Radiology Study observation (narrative) [facility] Work Phone: CT Abdomen and Pelvis W cont rast IVOrdered By: Andrew Sosa on 05-04-2025 [facility] Work Phone: Comprehensive metabolic 2000 panelon 05-04-2025 Albumin BCP dye [Mass/Vol] 4.0 g/dL 3.4 - 5.0 g/dL [facility] ALP [Catalytic activity/Vol] 138 U/L High 33 - 136 U/L [facility] ALT With P-5'-P [Catalytic activity/Vol] 15 U/L 10 - 52 U/L [facility] Comment on above: Patients treated wit h Sulfasalazine may generate falsely decreased results for ALT. Anion gap [Moles/Vol] 12 mmol/L 10 - 2 0 mmol/L [facility] AST With P-5'-P [Catalytic activity/Vol] 15 U/L 9 - 39 U/L [facility] Bilirubin [Mass/Vol] 1.6 mg/dL High 0.0 - 1 .2 mg/dL [facility] Calcium [Mass/Vol] 9.3 mg/dL 8.6 - 10. 3 mg/dL [facility] Chloride [Moles/Vol] 103 mmol/L 98 - 10 7 mmol/L [facility] CO2 [Moles/Vol] 25 mmol/L 21 - 32 mmol/L [facility] Creatinine [Mass/Vol] 1.60 mg/dL High 0.50 - 1.30 mg/dL [facility] GFR/1.73 sq M.predicted among non-blacks MDRD (S/P/Bld) [Vol rate/Area] 47 mL/min/{1.73_m2} Low - PINF [facility] Comment on above: Calculations of ashely mated GFR are performed using the 2020 CKD-EPI Study Refit equation without the race variable for the IDMS-Traceable creatinine methods. https://jasn.asnjournals.org/content/early//ASN.841811 7709 Glucose [Mass/Vol] 138 mg/dL High 74 - 99 mg/dL [facility] Interpretation and review of laboratory results Abnormal [facility] Potassium [Moles/Vol] 3.9 mmol/L 3.5 - 5.3 mmol/L [facility] Protein [Mass/Vol] 6.4 g/dL 6.4 - 8.2 g/dL [facility] Sodium [Moles/Vol] 136 mmol/L 136 - 145 mmol/L [facility] Urea nitrogen [Mass/Vol] 14 mg/dL 6 - 23 mg/dL [facility] Albumin BCP dye [Mass/Vol] 4.0 g/dL Normal 3.4-5.0 [facility] Comment on above: Performed By: #### 2 4323-8 #### CHRISTIE WATSON ([id number]) [facility] ([facility]) [address] [place] [address] ALP [Catalytic activity/Vol] 138 U/L High 33-136 [facility] Comment on above: Performed By: #### 2 4323-8 #### CHRISTIE WATSON ([id number]) [facility] ([facility]) [address] [place] [address] ALT With P-5'-P [Catalytic activity/Vol] 15 U/L Normal 10-52 [facility] Comment on above: Result Comment: Mary Jane ents treated with Sulfasalazine may generate falsely decreased results for ALT. Performed By: #### 2 4323-8 #### CHRISTIE WATSON ([id number]) [facility] ([facility]) [address] [place] [address] Anion gap [Moles/Vol] 12 mmol/L Normal 10-20 [facility] Comment on above: Performed By: #### 2 432-8 #### CHRISTIE WATSON ([id number]) [facility] ([facility]) [address] [place] [address] AST With P-5'-P [Catalytic activity/Vol] 15 U/L Normal 9-39 [facility] Comment on above: Performed By: #### 2 432-8 #### CHRISTIE WATSON ([id number]) [facility] ([facility]) [address] [place] [address] Bilirubin [Mass/Vol] 1.6 mg/dL High 0.0-1.2 [facility] Comment on above: Performed By: #### 2 4323-8 #### CHRISTIE WATSON ([id number]) [facility] ([facility]) [address] [place] [address] Calcium [Mass/Vol] 9.3 mg/dL Normal 8.6-10.3 [facility] Comment on above: Performed By: #### 2 4323-8 #### CHRISTIE WATSON ([id number]) [facility] ([facility]) [address] [place] [address] 99233 Chloride [Moles/Vol] 103 mmol/L Normal 98-107 [facility] Comment on above: Performed By: #### 2 4323-8 #### CHRISTIE WATSON ([id number]) [facility] ([facility]) [address] [place] [address] CO2 [Moles/Vol] 25 mmol/L Normal 21-32 [facility] Comment on above: Performed By: #### 2 4323-8 #### CHRISTIE WATSON ([id number]) [facility] ([facility]) [facility] [place] [address] Creatinine [Mass/Vol] 1.60 mg/dL High 0.50-1.30 [facility] Comment on above: Performed By: #### 2 4323-8 #### CHRISTIE WATSON ([id number]) [facility] ([facility]) [address] [place] [address] 88258 Glomerular filtration rate 47 mL/min/1.73m*2 Low >60 [facility] Comment on above: Result Comment: Calc ulations of estimated GFR are performed using the 2020 CKD-EPI Study Refit equation without the race variable for the IDMS-Traceable creatinine methods. https://jasn.asnjournals.org/content/early//ASN.116932 7191 Performed By: #### 2 432-8 #### CHRISTIE WATSON ([id number]) [facility] ([facility]) [address] [place] [address] 18142 Glucose [Mass/Vol] 138 mg/dL High 74-99 [facility] Comment on above: Performed By: #### 2 432-8 #### CHRISTIE WATSON ([id number]) [facility] ([facility]) [address] [place] [address] 82945 Potassium [Moles/Vol] 3.9 mmol/L Normal 3.5-5.3 [facility] Comment on above: Performed By: #### 2 4323-8 #### CHRISTIE WATSON ([id number]) [facility] ([facility]) [address] [place] [address] 37546 Protein [Mass/Vol] 6.4 g/dL Normal 6.4-8.2 [facility] Comment on above: Performed By: #### 2 4323-8 #### CHRISTIE WATSON ([id number]) [facility] ([facility]) [address] [place] [address] Sodium [Moles/Vol] 136 mmol/L Normal 136-145 [facility] Comment on above: Performed By: #### 2 4323-8 #### CHRISTIE WATSON ([id number]) [facility] ([facility]) [address] [place] [address] Urea nitrogen [Mass/Vol] 14 mg/dL Normal 6-23 [facility] Comment on above: Performed By: #### 2 4323-8 #### CHRISTIE WATSON ([id number]) [facility] ([facility]) [address] [place] [address] 97326 Lactateon 05-04-2025 Lactate [Moles/Vol] 1.5 mmol/L 0.4 - 2. 0 mmol/L [facility] Lactate [Moles/Vol] 1.5 mmol/L Normal 0.4-2.0 [facility] Comment on above: Order Comment: Venip uncture immediately after or during the administration of Metamizole may lead to falsely low results. Testing should be performed immediately prior to Metamizole dosing. Performed By: #### 2 524-7 #### CHRISTIE WATSON ([id number]) [facility] ([facility]) [address] [place] [address] 37649 Lactate [Moles/Vol]on 2024 Interpretation and review of laboratory results Normal [facility] Venipuncture immedia tely after or during the administration of Metamizole may lead to falsely low results. Testing should be performed immediately prior to Metamizole dosing. [facility] Lipaseon 05-04-2025 Lipase [Catalytic activity/Vol] 12 U/L 9 - 82 U/L [facility] Lipase [Catalytic activity/V ol]on 05-04-2025 Interpretation and review of laboratory results Normal [facility] Venipuncture immedia tely after or during the administration of Metamizole may lead to falsely low results. Testing should be performed immediately prior to Metamizole dosing. [facility] No Panel Informationon 05-04 [facility] Triacylglycerol lipaseon Lipase [Catalytic activity/Vol] 12 U/L Normal 9-82 [facility] Comment on above: Order Comment: Venip uncture immediately after or during the administration of Metamizole may lead to falsely low results. Testing should be performed immediately prior to Metamizole dosing. Performed By: #### 5 7021-8 #### CHRISTIE WATSON ([id number]) [facility] ([facility]) [address] [place] [address] Urinalysis complete W Reflex Culture panel (U)on 05-04-2025 Appearance (U) Clear Clear [facility] Bilirubin (U) [Mass/Vol] Negative NEGATIVE mg/dL [facility] Color (U) Dark-Yellow Light-Yellow , Yellow, Dark-Yellow [facility] Glucose Auto test strip (U) [Mass/Vol] Normal Normal mg/dL [facility] Interpretation and review of laboratory results Abnormal [facility] Ketones (U) [Mass/Vol] Negative NEGATIVE mg/dL [facility] Leukocyte esterase Auto test strip Ql (U) Negative NEGATIVE [facility] Nitrite Auto test strip Ql (U) 1+ Abnormal NEGATIVE [facility] pH (U) 6.5 [pH] 5.0, 5.5, 6.0, 6.5, 7.0, 7.5, 8.0 [facility] Protein (U) [Mass/Vol] Negative NEGATIVE, 10 (TRACE), 20 (TRACE) mg/dL [facility] RBC (U) [#/Vol] Negative NEGATIVE mg/dL [facility] Specific gravity (U) [Rel density] 1.015 1.005 - 1.035 [facility] Urobilinogen (U) [Mass/Vol] Normal Normal mg/dL [facility] Appearance (U) Clear Normal Clear [facility] Comment on above: Performed By: #### 5 7021-8 #### CHRISTIE WATSON ([id number]) [facility] ([facility]) [address] [place] [address] Bilirubin (U) [Mass/Vol] Negative Normal NEGATIVE [facility] Comment on above: Performed By: #### 5 7021-8 #### CHRISTIE WATSON ([id number]) [facility] ([facility]) [address] [place] [address] Color (U) Dark-Yellow Normal Light-Yellow , Yellow, Dark-Yellow [facility] Comment on above: Performed By: #### 7021-8 #### CHRISTIE WATSON ([id number]) [facility] ([facility]) [address] [place], [place] [address] Glucose Auto test strip (U) [Mass/Vol] Normal Normal Normal [facility] Comment on above: Performed By: #### 5 7021-8 #### CHRISTIE WATSON ([id number]) [facility] ([facility]) [address] [place] [address] Ketones (U) [Mass/Vol] Negative Normal NEGATIVE [facility] Comment on above: Performed By: #### 7021-8 #### CHRISTIE WATSON ([id number]) [facility] ([facility]) [address] [place] [address] Leukocyte esterase Auto test strip Ql (U) Negative Normal NEGATIVE [facility] Comment on above: Performed By: #### 5 7021-8 #### CHRISTIE WATSON ([id number]) [facility] ([facility]) [address] [place] [address] Nitrite Auto test strip Ql (U) 1+ Abnormal NEGATIVE [facility] Comment on above: Performed By: #### 7021-8 #### CHRISTIE WATSON ([id number]) [facility] ([facility]) [address] [place] [address] 39370 pH (U) 6.5 [pH] Normal 5.0, 5.5, 6.0, 6.5, 7.0, 7.5, 8.0 [facility] Comment on above: Performed By: #### 7021-8 #### CHRISTEI WATSON ([id number]) [facility] ([facility]) [address] [place] [address] 20268 Protein (U) [Mass/Vol] Negative Normal NEGATIVE, 10 (TRACE), 20 (TRACE) [facility] Comment on above: Performed By: #### 5 7021-8 #### CHRISTIE WATSON ([id number]) [facility] ([facility]) [address] [place] [address] RBC (U) [#/Vol] Negative Normal NEGATIVE [facility] Comment on above: Performed By: #### 5 7021-8 #### CHRISTIE WATSON ([id number]) [facility] ([facility]) [address] [place] [address] Specific gravity (U) [Rel density] 1.015 Normal 1.005-1.035 [facility] Comment on above: Performed By: #### 5 7021-8 #### CHRISTIE WATSON ([id number]) [facility] ([facility]) [address] [place] [address] Urobilinogen (U) [Mass/Vol] Normal Normal Normal [facility] Comment on above: Performed By: #### 5 7021-8 #### CHRISTIE WATSON ([id number]) [facility] ([facility]) [address] [place] [address] Urinalysis microscopic panel Auto Ql (U)on 05-04-2025 Interpretation and review of laboratory results Normal [facility] RBC Auto (Urine sed) [#/Area] NONE NONE, 1-2, 3-5 /HPF [facility] WBC Auto (Urine sed) [#/Area] 1-5 1-5, NONE /HPF [facility] RBC Auto (Urine sed) [#/Area] NONE Normal NONE, 1-2, 3-5 [facility] Comment on above: Performed By: #### 5 7021-8 #### CHRISTIE WATSON ([id number]) [facility] ([facility]) [address] [place] [address] WBC Auto (Urine sed) [#/Area] 1-5 Normal 1-5, NONE [facility] Comment on above: Performed By: #### 5 7021-8 #### CHRISTIE WATSON ([id number]) [facility] ([facility]) [address] [place] [address] Abdomen Single Viewon 2024 Abdomen Single View [facility] Imaging Services [address] [place], [place] [id number] Abdomen Single View MR#: [id number] Acct: [id number] Name: RAMON COSTA Rep #: [id number] : 1955 M 69 From: Gabriel Bernal MD PCP: Jarad Rey MD Status: [facility] Study: Abdomen Single View Date of Exam: 04/25/25 Exam# [id number] Ordering Dr: Harjit Lam MD EXAM: XR [...] measuring up to 10 mm. Reading Location: [facility] CC: Dr. Harjit Lam MD; Jarad Rey MD Flow Floor Attendant: Signed Normal [facility] Discharge Instructionon 03-31 Discharge Instruction [facility] Medical Records Department [address] [place] [address] Instructions for Home/Discharge Instructions 04/25/25 1547 MR#: [id number] Acct: [id number] Name: RAMON COSTA Rep #: [id number] : 1955 69 From: Harjit Lam MD PCP: Jarad Rey MD [place] [facility] [place] Instructions DC O2, CPAP, BIPAP needs Home O2 Discharge instructions: No Dressing / Incision Discharge Activity: Return to Normal Activity and May Not Drive (while taking narcotic pain medications.) Dressing / Incision Call your doctor if you observe: Fever of 101 or Higher and Uncontrolled pain Follow Up Care Please Follow Up With: Harjit Lam MD When: Call [phone] for an appointment Test Results: Test results from this visit will be discussed in further detail at your follow-up appointment, if applicable. Discharge Plan Admission Primary Reason for Your Visit: ESWL Attending Provider: Harjit Lam Primary Care Provider: Jarad Rey Instructions Print Language: Bahraini Discharge Orders/Prescriptions Prescriptions: New ciprofloxacin HCl [Cipro] [...] with an KUB prior to appt. with ks. 04/25/25 1547 Harjit Lam MD cc: Jarad Rey MD * Signed [facility] MR/POSTOP.ANE 04-25-2025 MR/POSTOP.[facility] Medical Records Department [address] [facility] [place] [address] Anesthesia Postop Eval I 04/25/25 164 MR#: [id number] Acct: [id number] Name: LUIS DANIEL COSTARYLIE MONTOYA Rep #: [id number] : 1955 69 From: Gonzalo Saucedo CRNA PCP: Jarad Rey MD Status:[facility] Y Race: C Location: [place] [address] Anesthesia: Postop Eval I Current Vital Signs [...] Anesthesia document: Postop Eval 1 completed: Yes 04/25/251647 Date Gonzalo Lujan Signature: Date CC: Signed [facility] MR/[id number] 04-25-2025 [facility] Medical Records Department [address] [place] [place] [address] Anesthesia Postop Eval II 04/25/25 181 MR#: [id number] Acct: [id number] Name: JULISSALUIS DANIELRAMONRYLIE MONTOYA Rep #: [id number] : 1955 69 From: Delonte Israel MD PCP: Jarad Rey MD Status[place] [facility] [place] Race: C [place] [facility] Anesthesia Postop Eval I Sum Postop Eval Completion status Anesthesia document: Postop Eval 1 completed: Yes Anesthesia Postop Eval I Summary Anesthesia Postop Eval I Summary: Anesthesia Postop Eval I: Assessment Summary Airway patent Yes 04/25/25 16:48 [email or web address] Spontaneous unlabored Yes 04/25/25 16:48 SLP [email or web address] respirations Mental status Awake 04/25/25 16:48 SLP [email or web address] nausea No 04/25/25 16:48 SLP [email or web address].[email or web address] Vomiting No 04/25/25 16:48 SLP [email or web address] Anesthesia Postop Eval I: Fluid Summary Crystalloid volume administer 900 04/25/25 16:48 SLP [email or web address] (ml) Colloids volume administered ( ml) Blood Product volume administered (ml) Total IV fluid infused 900 04/25/25 16:48 SLP [email or web address] Anesthesia Postop Eval I: Summary Notes Anesthesia Complication No 04/25/25 16:48 SLP [email or web address] Anesthesia Complication Comment: Post-operative progress note Anesthesia: Postop Eval II Evaluation Mental status: Awake Pain Level: 0 nausea: No Vomiting: No Complications Anesthesia Complication: No 04/25/25 181 Date Delonte Israel MD Cosigner Signature: Date CC: Signed Normal [facility] Operative Reporton Operative Report [facility] Medical Records Department [address] [place] [address] Operative Report 04/25/25 1620 MR#: [id number] Acct: [id number] Name: RAMON COSTA Rep #: [id number] : 1955 69 From: Harjit Lam MD PCP: Jarad Rey MD Status:[facility] Location: [place] [address] Operative Report (Standard) Operative Information Date of Procedure: 04/25/25 Pre-Operative Diagnosis: Right kidney stones Post-Operative Diagnosis: same Surgery/Procedure Performed: Cystoscopy right stent placement and right ESWL dragline oiler: No Type of Anesthesia: General RN Documented [...] in usual sterile fashion. Using a 21 Macanese rigid cystourethroscope the entire length of the urethra was normal then went into the bladder. Identified the trigone the left and right ureteral orifice. I then cannulated the right ureteral orifice and advanced a wire up into the kidney. I then backloaded a 5 Macanese open ended catheter over the wire and injected contrast to delineate the anatomy. After the retrograde was performed I then used fluoroscopic images and guidance to advanced a wire up into the kidney and over the 0.038 glidewire I advanced a 6 Macanese by 26 cm double pigtail stent. I [...] SCD's VTE Pharm Prophylaxis ordered?: No 04/25/25 9213 Cosigner Signature (if applicable): CC: Dr. Harjit Lam MD; Jarad Rey MD Signed [facility] MR/PAT.ANEon 04-13-2025 MR/PAT.[facility] Medical Records Department [address] [place] [address] PAT - Anesthesia 04/13/25 1443 MR#: [id number] Acct: [id number] Name: RAMON COSTA Rep #: [id number] : 1955 69 From: Can Donahue MD PCP: Jarad Rey MD Status:PRE [facility] [place] Race: C [place] [facility] Pre-Assessment Diagnosis/Proposed Procedure Planned Operative Procedure(s): BILAT ESWL CYSTO INSERTION STENT Anesthesia History Anesthesia History - hammerer: Anesthesia History - hammerer Hx Hospitalization No 04/13/25 13:21 Any Problems [...] take am of surgery PONV PONV - hammerer: PONV - hammerer Female No 04/13/25 13:21 HX of Motion Sickness No 04/13/25 13:21 HX of N/V After Surgery No 04/13/25 13:21 Non-Smoker Yes 04/13/25 13:21 Duration of Surgery greater Yes 04/13/25 13:21 than 60 minutes Number of Risk Factors 2 04/13/25 13:21 PONV Score Moderate Risk 04/13/25 13:21 Respiratory Assessment Respiratory Assessment - hammerer: Respiratory Tract Infection Hx - hammerer Hx Respiratory Tract Infection No 04/13/25 13:21 STOP Sleep Apnea STOP Sleep Apnea - hammerer: STOP Sleep Apnea - hammerer Hx Hypertension Yes: CONTROLLED WITH MED 04/13/25 [...] Tobacco Use History Tobacco Use History - hammerer: Tobacco Use History - hammerer Tobacco Use Smoking Status Never smoker 04/13/25 13:21 Hx Tobacco Use No 04/13/25 13:21 Years Smoking Packs Smoked per Day Smoking Cessation Date was within the last 15 years Hx Smoking Cessation Date Hx Smoking Cessation Counseling Hematologic Medial History Hematologic Hx - hammerer: 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 Normal [facility] Abdomen Single Viewon 2024 Abdomen Single View [facility] Imaging Services [address] [place] [address] Abdomen Single View MR#: [id number] Acct: [id number] Name: RAMON COSTA Rep #: [id number] : 1955 M 69 From: Aryan Guerrero MD PCP: Jarad Rey MD Status: REG CLI Study: Abdomen Single View Date of Exam: 04/10/25 Exam# [id number] Ordering Dr: Melba Barr PROCEDURE: ABDOMEN SINGLE [...] Bony structures show degenerative change Reading Location: [facility] CC: Jarad Rey MD; Melba Barr Flow Floor Attendant: Signed Normal [facility] PSA,Total - Annual Screenon 04-10-2025 PSA,TOT SCREEN 2.38 ng/mL Normal 0.02-4.00 [facility] Comment on above: Result Comment: [...] baseline values. Performed By: #### L 501.9910 ####[facility] [id number] [place], [address] US GALLBLADDER RUQon 025 US GALLBLADDER RUQ [...] Cas Alexander MD 04/09/25 Final result Normal [facility] US Gallbladderon 04-09-2025 1. Diffuse hepatic steatosis. 2. Cholelithiasis without sonographic evidence of acute cholecystitis. 3. 0.6 cm gallbladder polyp. 4. Right renal cortical thinning. 5. 7.9 cm debris containing right renal cyst. [facility] RADIOLOGY EXAMINATION: RIGHT UPPER QUADRANT [...] is a 7.9 cm debris containing cyst. [facility] Cas Alexander MD - 04/09/2025 EXAMINATION: RIGHT UPPER QUADRANT ULTRASOUND 04/09/2025 10:42 am COMPARISON: U/S abdomen limited 03/06/2024, CT abdomen/pelvis 08/10/2023 HISTORY: ORDERING SYSTEM PROVIDED HISTORY: Gallbladder polyp TECHNOLOGIST PROVIDED HISTORY: This procedure can be scheduled via [employer]. What reading provider will be dictating this [...] 7.9 cm debris containing right renal cyst. [facility] Radiology Study observation (narrative) [facility] US GallbladderOrdered By: Robert Alexander on 04-09-2025 [facility] Work Phone: Bacteriaon 03-25-2025 Bacteria identified Cx Nom (U) Test: Urine Culture Specimen Source: Clean Catch/Voided Specimen Type: Urine Specimen Date: 03/25/20252250 Result Date: 03/27/2025804 Result Status: Final result Abnormal: No Resulting Lab: [facility] [id number] [place] [address] CULTURE No growth Normal [facility] Comment on above: Performed By: #### 6 30-4 #### SULLY Schmidt ([id number]) [facility] ([facility]) [address] [place] [address] Basic metabolic 2000 panelon 03-25-2025 Anion gap [Moles/Vol] 9 mmol/L Low 10 - 2 0 mmol/L [facility] Calcium [Mass/Vol] 8.8 mg/dL 8.6 - 10. 3 mg/dL [facility] Chloride [Moles/Vol] 106 mmol/L 98 - 10 7 mmol/L [facility] CO2 [Moles/Vol] 27 mmol/L 21 - 32 mmol/L [facility] Creatinine [Mass/Vol] 1.40 mg/dL High 0.50 - 1.30 mg/dL [facility] GFR/1.73 sq M.predicted among non-blacks MDRD (S/P/Bld) [Vol rate/Area] 55 mL/min/{1.73_m2} Low - PINF [facility] Comment on above: Calculations of ashely mated GFR are performed using the 2020 CKD-EPI Study Refit equation without the race variable for the IDMS-Traceable creatinine methods. https://jasn.asnjournals.org/content//ASN.605860 8048 Glucose [Mass/Vol] 105 mg/dL High 74 - 99 mg/dL [facility] Interpretation and review of laboratory results Abnormal [facility] Potassium [Moles/Vol] 3.8 mmol/L 3.5 - 5.3 mmol/L [facility] Sodium [Moles/Vol] 138 mmol/L 136 - 145 mmol/L [facility] Urea nitrogen [Mass/Vol] 12 mg/dL 6 - 23 mg/dL [facility] Anion gap [Moles/Vol] 9 mmol/L Low 10-20 [facility] Comment on above: Performed By: #### 2 4321-2 #### CHRISTIE WATSON ([id number]) [facility] ([facility]) [address] [place] [address] Calcium [Mass/Vol] 8.8 mg/dL Normal 8.6-10.3 [facility] Comment on above: Performed By: #### 2 4321-2 #### CHRISTIE WATSON ([id number]) [facility] ([facility]) [address] [place] [address] Chloride [Moles/Vol] 106 mmol/L Normal 98-107 [facility] Comment on above: Performed By: #### 2 4321-2 #### CHRISTIE WATSON ([id number]) [facility] ([facility]) [address] [place] [address] CO2 [Moles/Vol] 27 mmol/L Normal 21-32 [facility] Comment on above: Performed By: #### 2 4321-2 #### CHRISTIE WATSON ([id number]) [facility] ([facility]) [facility] [place] [address] Creatinine [Mass/Vol] 1.40 mg/dL High 0.50-1.30 [facility] Comment on above: Performed By: #### 2 4321-2 #### CHRISTIE WATSON ([id number]) [facility] ([facility]) [facility] [place] [address] Glomerular filtration rate 55 mL/min/1.73m*2 Low >60 [facility] Comment on above: Result Comment: Calc ulations of estimated GFR are performed using the 2020 CKD-EPI Study Refit equation without the race variable for the IDMS-Traceable creatinine methods. https://jasn.asnjournals.org/content/early//ASN.277450 5211 Performed By: #### 2 4321-2 #### CHRISTIE WATSON ([id number]) [facility] ([facility]) [address] [place] [address] 24173 Glucose [Mass/Vol] 105 mg/dL High 74-99 [facility] Comment on above: Performed By: #### 2 4321-2 #### CHRISTIE WATSON ([id number]) [facility] ([facility]) [address] [place] [address] Potassium [Moles/Vol] 3.8 mmol/L Normal 3.5-5.3 [facility] Comment on above: Performed By: #### 2 4321-2 #### CHRISTIE WATSON ([id number]) [facility] ([facility]) [address] [place] [address] Sodium [Moles/Vol] 138 mmol/L Normal 136-145 [facility] Comment on above: Performed By: #### 2 4321-2 #### CHRISTIE WATSON ([id number]) [facility] ([facility]) [address] [place] [address] 14470 Urea nitrogen [Mass/Vol] 12 mg/dL Normal 6-23 [facility] Comment on above: Performed By: #### 2 4321-2 #### CHRISTIE WATSON ([id number]) [facility] ([facility]) [address] [place] [address] 77686 CBC W Auto Differential pane l (Bld)on 03-25-2025 Basophils (Bld) [#/Vol] 0.04 10*3/uL [facility] Basophils/100 WBC (Bld) 0.4 % 0.0 - 2.0 % [facility] Eosinophils (Bld) [#/Vol] 0.23 10*3/uL [facility] Eosinophils/100 WBC (Bld) 2.5 % 0.0 - 6.0 % [facility] Erythrocyte distribution width (RBC) [Ratio] 14.0 % 11.5 - 14.5 % [facility] Hematocrit (Bld) [Volume fraction] 43.6 % 41.0 - 52.0 % [facility] Hemoglobin (Bld) [Mass/Vol] 14.7 g/dL 13.5 - 17.5 g/dL [facility] Immature granulocytes (Bld) [#/Vol] 0.02 10*3/uL [facility] Immature granulocytes/100 WBC (Bld) 0.2 % 0.0 - 0.9 % [facility] Comment on above: Immature Granulocyte Count (IG) includes promyelocytes, myelocytes and metamyelocytes but does not include bands. Percent differential counts (%) should be interpreted in the context of the absolute cell counts (cells/UL). Lymphocytes (Bld) [#/Vol] 2.64 10*3/uL [facility] Lymphocytes/100 WBC (Bld) 28.4 % 13.0 - 44.0 % [facility] MCH (RBC) [Entitic mass] 31.7 pg 26.0 - 34.0 pg [facility] MCHC (RBC) [Mass/Vol] 33.7 g/dL 32.0 - 36.0 g/dL [facility] MCV (RBC) [Entitic vol] 94 fL 80 - 100 fL [facility] Monocytes (Bld) [#/Vol] 0.87 10*3/uL [facility] Monocytes/100 WBC (Bld) 9.4 % 2.0 - 10.0 % [facility] Neutrophils (Bld) [#/Vol] 5.50 10*3/uL [facility] Comment on above: Percent differential counts (%) should be interpreted in the context of the absolute cell counts (cells/uL). Neutrophils/100 WBC (Bld) 59.1 % 40.0 - 80.0 % [facility] Nucleated RBC/100 WBC (Bld) [Ratio] 0.0 % [facility] Platelets (Bld) [#/Vol] 189 10*3/uL [facility] RBC (Bld) [#/Vol] 4.64 10*6/uL [facility] WBC (Bld) [#/Vol] 9.3 10*3/uL [facility] Basophils (Bld) [#/Vol] 0.04 x10*3/uL Normal 0.00-0.10 [facility] Comment on above: Performed By: #### 5 7021-8 #### CHRISTIE WATSON ([id number]) [facility] ([facility]) [address] [place] [address] 43901 Basophils/100 WBC (Bld) 0.4 % Normal 0.0-2.0 [facility] Comment on above: Performed By: #### 7021-8 #### CHRISTIE WATSON ([id number]) [facility] ([facility]) [address] [place] [address] 43293 Eosinophils (Bld) [#/Vol] 0.23 x10*3/uL Normal 0.00-0.70 [facility] Comment on above: Performed By: #### 5 7021-8 #### CHRISTIE WATSON ([id number]) [facility] ([facility]) [address] [place] [address] 44709 Eosinophils/100 WBC (Bld) 2.5 % Normal 0.0-6.0 [facility] Comment on above: Performed By: #### 7021-8 #### CHRISTIE WATSON ([id number]) [facility] ([facility]) [address] [place] [address] 33048 Erythrocyte distribution width (RBC) [Ratio] 14.0 % Normal 11.5-14.5 [facility] Comment on above: Performed By: #### 5 7021-8 #### CHRISTIE WATSON ([id number]) [facility] ([facility]) [address] [place] [address] 22059 Hematocrit (Bld) [Volume fraction] 43.6 % Normal 41.0-52.0 [facility] Comment on above: Performed By: #### 5 7021-8 #### CHRISTIE WATSON ([id number]) [facility] ([facility]) [address] [place] [address] 04835 Hemoglobin (Bld) [Mass/Vol] 14.7 g/dL Normal 13.5-17.5 [facility] Comment on above: Performed By: #### 5 7021-8 #### CHRISTIE WATSON ([id number]) [facility] ([facility]) [address] [place] [address] 94412 Immature granulocytes (Bld) [#/Vol] 0.02 x10*3/uL Normal 0.00-0.70 [facility] Comment on above: Performed By: #### 5 7021-8 #### CHRISTIE WATSON ([id number]) [facility] ([facility]) [address] [place] [address] 67152 Immature granulocytes/100 WBC (Bld) 0.2 % Normal 0.0-0.9 [facility] Comment on above: Result Comment: Reshma ture Granulocyte Count (IG) includes promyelocytes, myelocytes and metamyelocytes but does not include bands. Percent differential counts (%) should be interpreted in the context of the absolute cell counts (cells/UL). Performed By: #### 5 7021-8 #### CHRISTIE WATSON ([id number]) [facility] ([facility]) [address] [place] [address] 17077 Lymphocytes (Bld) [#/Vol] 2.64 x10*3/uL Normal 1.20-4.80 [facility] Comment on above: Performed By: #### 5 7021-8 #### CHRISTIE WATSON ([id number]) [facility] ([facility]) [address] [place] [address] 38827 Lymphocytes/100 WBC (Bld) 28.4 % Normal 13.0-44.0 [facility] Comment on above: Performed By: #### 5 7021-8 #### CHRISTIE WATSON ([id number]) [facility] ([facility]) [address] [place] [address] 30155 MCH (RBC) [Entitic mass] 31.7 pg Normal 26.0-34.0 [facility] Comment on above: Performed By: #### 5 7021-8 #### CHRISTIE WATSON ([id number]) [facility] ([facility]) [address] [place] [address] 60184 MCHC (RBC) [Mass/Vol] 33.7 g/dL Normal 32.0-36.0 [facility] Comment on above: Performed By: #### 5 7021-8 #### CHRISTIE WATSON ([id number]) [facility] ([facility]) [address] [place] [address] 32485 MCV (RBC) [Entitic vol] 94 fL Normal 80-100 [facility] Comment on above: Performed By: #### 5 7021-8 #### CHRISTIE WATSON ([id number]) [facility] ([facility]) [address] [place] [address] 08960 Monocytes (Bld) [#/Vol] 0.87 x10*3/uL Normal 0.10-1.00 [facility] Comment on above: Performed By: #### 5 7021-8 #### CHRISTIE WATSON ([id number]) [facility] ([facility]) [address] [place] [address] 98288 Monocytes/100 WBC (Bld) 9.4 % Normal 2.0-10.0 [facility] Comment on above: Performed By: #### 5 7021-8 #### CHRISTIE WATSON ([id number]) [facility] ([facility]) [address] [place] [address] 98520 Neutrophils (Bld) [#/Vol] 5.50 x10*3/uL Normal 1.20-7.70 [facility] Comment on above: Result Comment: Perc ent differential counts (%) should be interpreted in the context of the absolute cell counts (cells/uL). Performed By: #### 5 7021-8 #### CHRISTIE WATSON ([id number]) [facility] ([facility]) [address] [place] [address] 86410 Neutrophils/100 WBC (Bld) 59.1 % Normal 40.0-80.0 [facility] Comment on above: Performed By: #### 5 7021-8 #### CHRISTIE WATSON ([id number]) [facility] ([facility]) [address] [place] [address] 08341 Nucleated RBC/100 WBC (Bld) [Ratio] 0.0 /100 WBCs Normal 0.0-0.0 [facility] Comment on above: Performed By: #### 5 7021-8 #### CHRISTIE WATSON ([id number]) [facility] ([facility]) [address] [place] [address] Platelets (Bld) [#/Vol] 189 x10*3/uL Normal 150-450 [facility] Comment on above: Performed By: #### 5 7021-8 #### CHRISTIE WATSON ([id number]) [facility] ([facility]) [address] [place] [address] RBC (Bld) [#/Vol] 4.64 x10*6/uL Normal 4.50-5.90 [facility] Comment on above: Performed By: #### 5 7021-8 #### CHRISTIE WATSON ([id number]) [facility] ([facility]) [address] [place] [address] 82441 WBC (Bld) [#/Vol] 9.3 x10*3/uL Normal 4.4-11.3 [facility] Comment on above: Performed By: #### 5 7021-8 #### CHRISTIE WATSON ([id number]) [facility] ([facility]) [address] [place] [address] CT ABDOMEN PELVIS WO IV CONT [facility] 03-25-2025 CT ABDOMEN PELVIS WO IV CONTRAST Interpreted By: Maykel Ruano, STUDY: CT ABDOMEN PELVIS WO IV CONTRAST; 03/25/2025 10:02 pm INDICATION: Signs/Symptoms:Hematuria history of kidney stones. COMPARISON: CT abdomen pelvis 08/10/2017. ACCESSION NUMBER(S): [id number] ORDERING CLINICIAN: ZAK ALVAREZ TECHNIQUE: CT of [...] The abdominal aorta is normal in caliber. PERITONEUM/RETROPERITONEUM /LYMPH NODES: There is no ascites or intraperitoneal free air. There is no lymphadenopathy by CT criteria. ABDOMINAL WALL: The abdominal wall soft tissues appear normal. BONES: No suspicious osseous lesions are identified. Vertebral body heights are maintained. Mild osseous demineralization/osteopeni a. IMPRESSION: 1. No acute abnormality in the abdomen/pelvis. Multiple bilateral intrarenal calculi without hydronephrosis or obstructive nephrolithiasis. Bilateral renal cysts. Prostatomegaly, clinical correlation for prostate etiology of hematuria recommended. 2. Cholelithiasis without cholecystitis. Hepatomegaly. Signed by: Maykel Ruano 03/25/2025 10:47 PM Dictation workstation: [id number] [facility] CT Abdomen WO contraston 1. No acute abnormal ity in the abdomen/pelvis. Multiple bilateral intrarenal calculi without hydronephrosis or obstructive nephrolithiasis. Bilateral renal cysts. Prostatomegaly, clinical correlation for prostate etiology of hematuria recommended. 2. Cholelithiasis without cholecystitis. Hepatomegaly. Signed by: Maykel Ruano 03/25/2025 10:47 PM Dictation workstation: [id number] [facility]ODAL Interpreted By: Maykel Handley, STUDY: CT ABDOMEN PELVIS WO IV CONTRAST; 03/25/2025 10:02 pm INDICATION: Signs/Symptoms:Hematuria history of kidney stones. COMPARISON: CT abdomen pelvis 08/10/2017. ACCESSION NUMBER(S): [id number] ORDERING CLINICIAN: ZAK ALVAREZ TECHNIQUE: CT of [...] The abdominal aorta is normal in caliber. PERITONEUM/RETROPERITONEUM /LYMPH NODES: There is no ascites or intraperitoneal free air. There is no lymphadenopathy by CT criteria. ABDOMINAL WALL: The abdominal wall soft tissues appear normal. BONES: No suspicious osseous lesions are identified. Vertebral body heights are maintained. Mild osseous demineralization/osteopeni a. [facility] Maykel Ruano, DO - 03/25/2025 Interpreted By: Maykel Ruano, STUDY: CT ABDOMEN PELVIS WO IV CONTRAST; 03/25/2025 10:02 pm INDICATION: Signs/Symptoms:Hematuria history of kidney stones. COMPARISON: CT abdomen pelvis 08/10/2017. ACCESSION NUMBER(S): [id number] ORDERING CLINICIAN: ZAK ALVAREZ TECHNIQUE: CT of [...] The abdominal aorta is normal in caliber. PERITONEUM/RETROPERITONEUM /LYMPH NODES: There is no ascites or intraperitoneal free air. There is no lymphadenopathy by CT criteria. ABDOMINAL WALL: The abdominal wall soft tissues appear normal. BONES: No suspicious osseous lesions are identified. Vertebral body heights are maintained. Mild osseous demineralization/osteopeni a. IMPRESSION: 1. No acute abnormality in the abdomen/pelvis. Multiple bilateral intrarenal calculi without hydronephrosis or obstructive nephrolithiasis. Bilateral renal cysts. Prostatomegaly, clinical correlation for prostate etiology of hematuria recommended. 2. Cholelithiasis without cholecystitis. Hepatomegaly. Signed by: Maykel Ruano 03/25/2025 10:47 PM Dictation workstation: [id number] [facility] Work Phone: Radiology Study observation (narrative) [facility] Work Phone: CT Abdomen WO contrastOrdere d By: Maykel Ruano on 03-25-2025 [facility] Work Phone: No Panel Informationon 03-25 Interpretation and review of laboratory results Abnormal [facility] Urinalysis complete W Reflex Culture panel (U)on 03-25-2025 Appearance (U) Turbid Abnormal Clear [facility] Bilirubin (U) [Mass/Vol] Negative NEGATIVE mg/dL [facility] Color (U) Light-Brown Abnormal Light-Yellow , Yellow, Dark-Yellow [facility] Glucose Auto test strip (U) [Mass/Vol] Normal Normal mg/dL [facility] Ketones (U) [Mass/Vol] Negative NEGATIVE mg/dL [facility] Leukocyte esterase Auto test strip Ql (U) 250 Javad/uL Abnormal NEGATIVE [facility] Nitrite Auto test strip Ql (U) Negative NEGATIVE [facility] pH (U) 6.5 [pH] 5.0, 5.5, 6.0, 6.5, 7.0, 7.5, 8.0 [facility] Protein (U) [Mass/Vol] 30 (1+) Abnormal NEGATIVE, 10 (TRACE), 20 (TRACE) mg/dL [facility] RBC (U) [#/Vol] OVER (3+) Abnormal NEGATIVE mg/dL [facility] Specific gravity (U) [Rel density] 1.012 1.005 - 1.035 [facility] Urobilinogen (U) [Mass/Vol] Normal Normal mg/dL [facility] OVER is reported whe n the result is greater than the clinically reportable range. [facility] Appearance (U) Turbid Normal Clear [facility] Comment on above: Order Comment: OVER is reported when the result is greater than the clinically reportable range. Performed By: #### 5 8077-9 #### CHRISTIE WATSON ([id number]) [facility] ([facility]) [facility] [place] [address] Bilirubin (U) [Mass/Vol] Negative Normal NEGATIVE [facility] Comment on above: Order Comment: OVER is reported when the result is greater than the clinically reportable range. Performed By: #### 5 8077-9 #### CHRISTIE WATSON ([id number]) [facility] ([facility]) [facility] [place] [address] Color (U) Light-Brown Normal Light-Yellow , Yellow, Dark-Yellow [facility] Comment on above: Order Comment: OVER is reported when the result is greater than the clinically reportable range. Performed By: #### 5 8077-9 #### CHRISTIE WATSON ([id number]) [facility] ([facility]) [address] [place] [address] Glucose Auto test strip (U) [Mass/Vol] Normal Normal Normal [facility] Comment on above: Order Comment: OVER is reported when the result is greater than the clinically reportable range. Performed By: #### 5 8077-9 #### CHRISTIE WATSON ([id number]) [facility] ([facility]) [address] [place] [address] Ketones (U) [Mass/Vol] Negative Normal NEGATIVE [facility] Comment on above: Order Comment: OVER is reported when the result is greater than the clinically reportable range. Performed By: #### 5 8077-9 #### CHRISTIE WATSON ([id number]) [facility] ([facility]) [address] [place], [place] [id number] Leukocyte esterase Auto test strip Ql (U) 250 Javad/uL Abnormal NEGATIVE [facility] Comment on above: Order Comment: OVER is reported when the result is greater than the clinically reportable range. Performed By: #### 5 8077-9 #### CHRISTIE WATSON ([id number]) [facility] ([facility]) [address] [place] [address] Nitrite Auto test strip Ql (U) Negative Normal NEGATIVE [facility] Comment on above: Order Comment: OVER is reported when the result is greater than the clinically reportable range. Performed By: #### 5 8077-9 #### CHRISTIE WATSON ([id number]) [facility] ([facility]) [address] [place], [place] [address] pH (U) 6.5 [pH] Normal 5.0, 5.5, 6.0, 6.5, 7.0, 7.5, 8.0 [facility] Comment on above: Order Comment: OVER is reported when the result is greater than the clinically reportable range. Performed By: #### 5 8077-9 #### CHRISTIE WATSON ([id number]) [facility] ([facility]) [address] [place] [address] 00576 Protein (U) [Mass/Vol] 30 (1+) Abnormal NEGATIVE, 10 (TRACE), 20 (TRACE) [facility] Comment on above: Order Comment: OVER is reported when the result is greater than the clinically reportable range. Performed By: #### 5 8077-9 #### CHRISTIE WATSON ([id number]) [facility] ([facility]) [address] [place] [address] 72249 RBC (U) [#/Vol] OVER (3+) Abnormal NEGATIVE [facility] Comment on above: Order Comment: OVER is reported when the result is greater than the clinically reportable range. Performed By: #### 5 8077-9 #### CHRISTIE WATSON ([id number]) [facility] ([facility]) [address] [place] [address] Specific gravity (U) [Rel density] 1.012 Normal 1.005-1.035 [facility] Comment on above: Order Comment: OVER is reported when the result is greater than the clinically reportable range. Performed By: #### 5 8077-9 #### CHRISTIE WATSON ([id number]) [facility] ([facility]) [address] [place], [place] [address] Urobilinogen (U) [Mass/Vol] Normal Normal Normal [facility] Comment on above: Order Comment: OVER is reported when the result is greater than the clinically reportable range. Performed By: #### 5 8077-9 #### CHRISTIE WATSON ([id number]) [facility] ([facility]) [address] [place] [address] 27803 Urinalysis microscopic panel Auto Ql (U)on 03-25-2025 Bacteria Auto (Urine sed) [#/Area] 1+ Abnormal NONE SEEN /HPF [facility] Mucus Auto (Urine sed) [#/Area] FEW Reference range not established. /LPF [facility] RBC Auto (Urine sed) [#/Area] >20 Abnormal NONE, 1-2, 3-5 /HPF [facility] WBC Auto (Urine sed) [#/Area] 21-50 Abnormal 1-5, NONE /HPF [facility] Bacteria Auto (Urine sed) [#/Area] 1+ /HPF Abnormal NONE SEEN [facility] Comment on above: Performed By: #### 5 3315-8 #### CHRISTIE WATSON ([id number]) [facility] ([facility]) [address] [place] [address] Mucus Auto (Urine sed) [#/Area] FEW Normal Reference range not established. [facility] Comment on above: Performed By: #### 5 3315-8 #### CHRISTIE WATSON ([id number]) [facility] ([facility]) [address] [place] [address] RBC Auto (Urine sed) [#/Area] >20 Abnormal NONE, 1-2, 3-5 [facility] Comment on above: Performed By: #### 5 3315-8 #### CHRISTIE WATSON ([id number]) [facility] ([facility]) [address] [place] [address] WBC Auto (Urine sed) [#/Area] 21-50 Abnormal 1-5, NONE [facility] Comment on above: Performed By: #### 5 3315-8 #### CHRISTIE WATSON ([id number]) [facility] ([facility]) [address] [place] [address] XR ABDOMEN 1 VIEWon 09-13-19 25 XR ABDOMEN 1 VIEW Interpreted By: Estela Herrera, STUDY: XR ABDOMEN 1 VIEW; 09/13/2024 10:05 am. 2 views. INDICATION: Signs/Symptoms:KIDNEY STONES. COMPARISON: 02/23/2024 ACCESSION NUMBER(S): [id number] ORDERING CLINICIAN: ISABELA BAZAN FINDINGS: Bowel gas [...] Estela Elkins 09/15/2024 8:10 AM Dictation workstation: [id number] [facility] Hemoglobin A1Con 06-27-2024 Glucose [Mass/Vol] 103 mg/dL Normal [facility] Comment on above: Result Comment: The ADA and AACC recommend providing the estimated average glucose result to permit better patient understanding of their HBA1c result. Performed at [facility], [address] [place], [place] [address] . HbA1c (Bld) [Mass fraction] 5.2 % Normal 4.0-6.0 [facility] Comprehensive Metabolic Pane l Fastingon 06-26-2024 Anion gap [Moles/Vol] 8 mmol/L Low 9-15 [facility] Comment on above: Performed By: #### C MPF #### [facility] [address] [place] [address] Albumin [Mass/Vol] 4.1 g/dL Normal 3.5-4.6 [facility] Comment on above: Performed By: #### C MPF #### [facility] [address] [place] [address] ALP [Catalytic activity/Vol] 124 U/L Critically high 35-104 [facility] Comment on above: Performed By: #### C MPF #### [facility] [address] [place] [address] ALT [Catalytic activity/Vol] 8 U/L Normal 0-41 [facility] Comment on above: Performed By: #### C MPF #### [facility] [address] [place] [address] AST [Catalytic activity/Vol] 19 U/L Normal 0-40 [facility] Comment on above: Performed By: #### C MPF #### [facility] [address] [place] [address] Bilirubin [Mass/Vol] 1.2 mg/dL Critically high 0.2-0.7 [facility] Comment on above: Performed By: #### C MPF #### [facility] [address] [place] [address] Calcium [Mass/Vol] 9.2 mg/dL Normal 8.5-9.9 [facility] Comment on above: Performed By: #### C MPF #### [facility] [address] [place] [address] Chloride [Moles/Vol] 107 mmol/L Normal 95-107 [facility] Comment on above: Performed By: #### C MPF #### [facility] [address] [place] [address] CO2 [Moles/Vol] 26 mmol/L Normal 20-31 [facility] Comment on above: Performed By: #### C MPF #### [facility] [address] [place] [address] Creatinine [Mass/Vol] 1.05 mg/dL Normal 0.70-1.20 [facility] Comment on above: Performed By: #### C MPF #### [facility] [address] [place] [address] GFR 77.5 Normal >60 [facility] Comment on above: Result Comment: Pedi atric calculator link https://www.kidney.org/professionals/kdoqi/gfr_calculatorped Effective Jun 01, [...] secretion. Performed By: #### C MPF #### [facility] [address] [place] [address] Globulin (S) [Mass/Vol] 2.3 g/dL Normal 2.3-3.5 [facility] Comment on above: Performed By: #### C MPF #### [facility] [address] [place] [address] Glucose [Mass/Vol] 97 mg/dL Normal 70-99 [facility] Comment on above: Performed By: #### C MPF #### [facility] [address] [place] [address] Potassium [Moles/Vol] 4.5 mmol/L Normal 3.4-4.9 [facility] Comment on above: Performed By: #### C MPF #### [facility] [address] [place] [address] Protein [Mass/Vol] 6.4 g/dL Normal 6.3-8.0 [facility] Comment on above: Performed By: #### C MPF #### [facility] [address] [place] [address] Sodium [Moles/Vol] 141 mmol/L Normal 135-144 [facility] Comment on above: Performed By: #### C MPF #### [facility] [address] [place] [address] Urea nitrogen [Mass/Vol] 12 mg/dL Normal 8-23 [facility] Comment on above: Performed By: #### C MPF #### [facility] [address] [place] [address] Comprehensive metabolic 2000 panelon 06-26-2024 Albumin [Mass/Vol] [...] [facility] CO2 [Moles/Vol] 26 mmol/L [facility] Creatinine [Mass/Vol] 1.05 mg/dL 0.70 - 1.20 mg/dL [facility] GFR/1.73 sq M.predicted among non-blacks MDRD (S/P/Bld) [Vol rate/Area] 77.5 mL/min/{1.73_m2} 60 - PINF [facility] Comment on above: Pediatric calculator link [...] [facility] Sodium [Moles/Vol] 141 mmol/L [facility] Urea nitrogen [Mass/Vol] 12 mg/dL 8 - 23 mg/dL [facility] Lipid Panel Fastingon 2023 Cholesterol [Mass/Vol] 113 mg/dL Normal 0-199 [facility] Comment on above: ATP III Cholesterol classification is Desirable. Result Comment: ATP III Cholesterol classification is Desirable. Performed By: #### L IPDF #### [facility] [address] [place] [address] HDL Cholesterol Fasting 33 mg/dL Low 40-59 [facility] Comment on above: Result Comment: [...] CHD Performed By: #### L IPDF #### [facility] [address] [place] [facility] [address] LDL Cholesterol (Calculated) Fasting 67 mg/dL Normal 0-129 [facility] Comment on above: Result Comment: ATP III LDL Classification is Optimal. Performed By: #### L IPDF #### [facility] [address] [facility] [address] Triglycerides Fasting 65 mg/dL Normal 0-150 [facility] Comment on above: Result Comment: ATP III Triglycerides Classification is Normal. Performed By: #### L IPDF #### [facility] [address] [facility] [address] Lipid, Fastingon 06-26-2024 Cholesterol in HDL [Mass/Vol] [...] mg/dL 0 - 129 mg/dL [facility] Comment on above: ATP III LDL Classifi cation is Optimal. Triglyceride, Fasting 65 mg/dL 0 - 15 0 mg/dL [facility] Comment on above: ATP III Triglyceride s Classification is Normal. No Panel Informationon 06-26 Interpretation and review of laboratory results Abnormal [facility] XR Abdomen Single viewon 1. Multiple calcific ations in the right kidney in the lower and midportions and 1 calcification in the lower pole of the left kidney. Findings unchanged from 10/07/2023. MACRO: None Signed by: Sundar Jacobsen 02/23/2024 3:35 PM Dictation workstation: [id number] [facility] Interpreted By: Sundar Smith, STUDY: XR ABDOMEN 1 VIEW; 02/23/2024 10:34 am INDICATION: Signs/Symptoms:KIDNEY STONES. COMPARISON: 10/07/2023 ACCESSION NUMBER(S): [id number] ORDERING CLINICIAN: ISABELA BAZAN FINDINGS: Nonobstructive bowel [...] INDICATION: Signs/Symptoms:KIDNEY STONES. COMPARISON: 10/07/2023 ACCESSION NUMBER(S): [id number] ORDERING CLINICIAN: ISABELA BAZAN FINDINGS: Nonobstructive bowel [...] Sundar Jacobsen 02/23/2024 3:35 PM Dictation workstation: [id number] [facility] Work Phone: Radiology Study observation (narrative) [facility] Work Phone: XR Abdomen Single viewOrdere d By: Sundar Jacobsen on 02-23-2024 [facility] Work Phone: POCT UA Automated manually r esultedon 12-16-2023 Appearance (U) Clear Clear [facility] Work Phone: [phone] Glucose Test strip (U) [Mass/Vol] Negative NEGATIVE mg/dl [facility] Work Phone: [phone] Hemoglobin Ql (U) SMALL (1+) Abnormal NEGATIVE [facility] Work Phone: [phone] Interpretation and review of laboratory results Abnormal [facility] Work Phone: [phone] Leukocyte esterase Test strip Ql (U) TRACE Abnormal NEGATIVE [facility] Work Phone: [phone] Nitrite Ql (U) Negative NEGATIVE [facility] Work Phone: [phone] pH (U) 7.0 [pH] No Reference Range Established [facility] Work Phone: [phone] POC Bilirubin, Urine Negative NEGATIVE [facility] Work Phone: [phone] POC Color, Urine Yellow Straw, Yellow, Light-Yellow [facility] Work Phone: [phone] POC Ketones, Urine Negative NEGATIVE mg/dl [facility] Work Phone: [phone] POC Protein, Urine Negative NEGATIVE, 30 (1+) mg/dl [facility] Work Phone: [phone] POC Specific [place], Urine 1.020 1.005 - 1.035 [facility] Work Phone: [phone] POC Urobilinogen, Urine 0.2 0.2, 1.0 EU/DL [facility] Work Phone: [phone] [facility] Work Phone: [phone] No Panel Informationon 11-08 Interpretation and review of laboratory results Abnormal [facility] Urinalysis complete W Reflex Culture panel (U)on 11-09-2023 Appearance (U) Hazy Abnormal Clear [facility] Bilirubin (U) [Mass/Vol] Negative NEGATIVE [facility] Color (U) Yellow Straw, Yellow [facility] Glucose Auto test strip (U) [Mass/Vol] Negative NEGATIVE mg/dL [facility] Ketones (U) [Mass/Vol] Negative NEGATIVE mg/dL [facility] Leukocyte esterase Auto test strip Ql (U) MODERATE (2+) Abnormal NEGATIVE [facility] Nitrite Auto test strip Ql (U) Negative NEGATIVE [facility] pH (U) 6.0 [pH] 5.0, 5.5, 6.0, 6.5, 7.0, 7.5, 8.0 [facility] Protein (U) [Mass/Vol] 30 (1+) Abnormal NEGATIVE mg/dL [facility] RBC (U) [#/Vol] Negative NEGATIVE [facility] Specific gravity (U) [Rel density] 1.015 1.005 - 1.035 [facility] Urobilinogen (U) [Mass/Vol] mg/dL NINF - 2.0 mg/dL [facility] Urinalysis microscopic panel Auto Ql (U)on 11-09-2023 Bacteria Auto (Urine sed) [#/Area] 3+ Abnormal NONE SEEN /HPF [facility] Leukocyte clumps Auto (Urine sed) [#/Area] OCCASIONAL Reference range not established. /HPF [facility] Mucus Auto (Urine sed) [#/Area] 4+ Reference range not established. /LPF [facility] RBC Auto (Urine sed) [#/Area] 11-20 Abnormal NONE, 1-2, 3-5 /HPF [facility] WBC Auto (Urine sed) [#/Area] >50 Abnormal 1-5, NONE /HPF [facility] Bacteria identifiedon 2023 Bacteria identified Cx Nom (U) Test: Urine Culture Specimen Source: Clean Catch/Voided Specimen Type: Urine Specimen Date: 11/08/2023 12:19 PM Result Date: 11/10/2023 7:53 AM Result Status: Final result Abnormal: No Resulting Lab: [facility] [id number] [place] [address] CULTURE No significant growth Normal [facility] Comment on above: Performed By: #### 6 30-4 #### SULLY Schmidt ([id number]) [facility] ([facility]) [address] [place] [address] POCT UA Automated manually r esultedon 10-07-2023 Appearance (U) Clear Clear [facility] Work Phone: [phone] Glucose Test strip (U) [Mass/Vol] Negative NEGATIVE mg/dl [facility] Work Phone: [phone] Hemoglobin Ql (U) MODERATE (2+) Abnormal NEGATIVE [facility] Work Phone: [phone] Interpretation and review of laboratory results Abnormal [facility] Work Phone: [phone] Leukocyte esterase Test strip Ql (U) TRACE Abnormal NEGATIVE [facility] Work Phone: [phone] Nitrite Ql (U) Negative NEGATIVE [facility] Work Phone: [phone] pH (U) 7.0 [pH] No Reference Range Established [facility] Work Phone: [phone] POC Bilirubin, Urine Negative NEGATIVE [facility] Work Phone: [phone] POC Color, Urine Yellow Straw, Yellow, Light-Yellow [facility] Work Phone: [phone] POC Ketones, Urine Negative NEGATIVE mg/dl [facility] Work Phone: [phone] POC Protein, Urine Negative NEGATIVE, 30 (1+) mg/dl [facility] Work Phone: [phone] POC Specific [place], Urine 1.020 1.005 - 1.035 [facility] Work Phone: POC Urobilinogen, Urine 0.2 0.2, 1.0 EU/DL [facility] Work Phone: [facility] Work Phone: Prostate specific Agon 10-07 Prostate specific Ag [Mass/Vol] 1.98 ng/mL Normal <=4.00 [facility] Comment on above: Order Comment: The F DA requires that the method used for PSA assay be reported to the physician. Values obtained with different assay methods must not be used interchangeably. This test was performed at [facility] using the Access [employer] PSA assay is a two-site immunoenzymatic sandwich assay. The assay is approved for measurement of prostate-specific antigen (PSA)in serum and may be used in conjunction with a digital rectal examination in men 50 years and older as an aid in detection of prostate cancer. 9-Ryiwv-zijnwqufb inhibitors (e.g. Proscar, Finasteride, Avodart, Dutasteride and Lianne) for the treatment of BPH have been shown to lower PSA levels by an average of 50% after 6 months of treatment. Performed By: #### 2 857-1 #### SORIANO SHIRLEY ([id number]) [facility] ([facility]) [address] [place] [address] Gammaglutamyl Transon 2023 Amylase [Catalytic activity/Vol] 13 U/L Normal 8-61 [facility] Comment on above: Result Comment: Perf ormed at [facility], [address] [place] [id number] . Surgical Specimenon 08-17-[address] [facility] [address] [place], [place] [id number] FINAL SURGICAL PATHOLOGY REPORT Patient Name: RAMON COSTA Accession No: [id number] Age Sex: 1955 Location: [facility] Account No: [id number] Collected: 08/17/2023 Med Rec No: [id number] Received: 08/18/2023 Attend Phys: YASMANY SMITH Completed: [...] 2 mm. Submitted together in one cassette. [facility] CPT: 40934 X5 19212 X2 TIMO PARK M.D. 08/19/2023 Electronically signed out by Page 1 of 1 Invalid Interpretation Code [facility] Comment on above: Performed By: #### S UR #### [facility] [address] [place] [address] Comprehensive Metabolic Pane l Fastingon 06-11-2023 Albumin [Mass/Vol] 4.2 g/dL Normal 3.5-4.6 [facility] Comment on above: Performed By: #### C MPF #### [facility] [address] [place] [address] ALP [Catalytic activity/Vol] 139 U/L Critically high 35-104 [facility] Comment on above: Performed By: #### C MPF #### [facility] [address] [place] [address] ALT [Catalytic activity/Vol] 14 U/L Normal 0-41 [facility] Comment on above: Performed By: #### C MPF #### [facility] [address] [place] [address] Anion gap [Moles/Vol] 11 mmol/L Normal 9-15 [facility] Comment on above: Performed By: #### C MPF #### [facility] [address] [place] [address] AST [Catalytic activity/Vol] 19 U/L Normal 0-40 [facility] Comment on above: Performed By: #### C MPF #### [facility] [address] [place] [address] Bilirubin [Mass/Vol] 1.0 mg/dL Critically high 0.2-0.7 [facility] Comment on above: Performed By: #### C MPF #### [facility] [address] [place] [address] Calcium [Mass/Vol] 9.1 mg/dL Normal 8.5-9.9 [facility] Comment on above: Performed By: #### C MPF #### [facility] [address] [place] [address] Chloride [Moles/Vol] 106 mmol/L Normal 95-107 [facility] Comment on above: Performed By: #### C MPF #### [facility] [address] [place] [address] CO2 [Moles/Vol] 25 mmol/L Normal 20-31 [facility] Comment on above: Performed By: #### C MPF #### [facility] [address] [place] [address] Creatinine [Mass/Vol] 0.99 mg/dL Normal 0.70-1.20 [facility] Comment on above: Performed By: #### C MPF #### [facility] [address] [place] [address] GFR >60.0 Normal >60 [facility] Comment on above: Result Comment: Yoselin [...] secretion. Performed By: #### C MPF #### [facility] [address] [place] [address] Globulin (S) [Mass/Vol] 2.3 g/dL Normal 2.3-3.5 [facility] Comment on above: Performed By: #### C MPF #### [facility] [address] [place] [address] Glucose [Mass/Vol] 103 mg/dL Critically high 70-99 M [facility] Comment on above: Performed By: #### C MPF #### [facility] [address] [place] [address] Potassium [Moles/Vol] 4.4 mmol/L Normal 3.4-4.9 [facility] Comment on above: Performed By: #### C MPF #### [facility] [address] [place] [address] Protein [Mass/Vol] 6.5 g/dL Normal 6.3-8.0 [facility] Comment on above: Performed By: #### C MPF #### [facility] [address] [place] [address] Sodium [Moles/Vol] 142 mmol/L Normal 135-144 [facility] Comment on above: Performed By: #### C MPF #### [facility] [address] [place] [address] Urea nitrogen [Mass/Vol] 11 mg/dL Normal 8-23 [facility] Comment on above: Performed By: #### C MPF #### [facility] [address] [place] [address] Lipid Panel Fastingon 2022 Cholesterol [Mass/Vol] 112 mg/dL Normal 0-199 [facility] Comment on above: Result Comment: ATP III Cholesterol classification is Desirable. Performed By: #### L IPDF #### [facility] [address] [place] [address] HDL Cholesterol Fasting 32 mg/dL Low 40-59 [facility] Comment on above: Result Comment: ATP [...] CHD Performed By: #### L IPDF #### [facility] [address] [place] [address] LDL Cholesterol (Calculated) Fasting 67 mg/dL Normal 0-129 [facility] Comment on above: Result Comment: ATP III LDL Classification is Optimal. Performed By: #### L IPDF #### [facility] [address] [place] [address] Triglycerides Fasting 63 mg/dL Normal 0-150 [facility] Comment on above: Result Comment: ATP III Triglycerides Classification is Normal. Performed By: #### L IPDF #### [facility] [address] [place] [address] Prostate Specific Ag Screeno n 06-11-2023 Prostate Specific Ag Screen 1.58 ng/mL Normal 0.00-4.00 [facility] Comment on above: Performed By: #### P SA #### [facility] [address] [place] [address] Comprehensive Metabolic Pane l, Fastingon 06-15-2022 Albumin [Mass/Vol] 4 g/dL 3.5 - 4.6 g/dL [facility] ALP (Bld) [Catalytic activity/Vol] 137 U/L High 35 - 104 U/L [facility] ALT [Catalytic activity/Vol] 17 U/L 0 - 41 U/L [facility] Anion gap [Moles/Vol] 7 mmol/L Low [facility] AST [Catalytic activity/Vol] 29 U/L 0 - 40 U/L [facility] Bilirubin [Mass/Vol] 1.0 mg/dL High 0.2 - 0 .7 mg/dL [facility] Calcium [Mass/Vol] 9.3 mg/dL 8.5 - 9.9 mg/dL [facility] Chloride [Moles/Vol] 104 mmol/L [facility] CO2 [Moles/Vol] 27 mmol/L [facility] Creatinine [Mass/Vol] 0.98 mg/dL 0.7 - 1.2 mg/dL [facility] GFR/1.73 sq M.predicted MDRD (S/P/Bld) [Vol rate/Area] 60 - PINF [facility] Comment on above: Pediatric calculator link [...] [Mass/Vol] 2.6 g/dL 2.3 - 3.5 g/dL [facility] Glucose [Mass/Vol] 92 mg/dL 70 - 99 mg/dL [facility] Potassium [Moles/Vol] 4.9 mmol/L [facility] Protein [Mass/Vol] 6.6 g/dL 6.3 - 8 g/dL [facility] Sodium [Moles/Vol] 138 mmol/L [facility] Urea nitrogen (BldV) [Mass/Vol] 12 mg/dL 8 - 23 mg/dL [facility] Lipid, Fastingon 06-15-2022 Cholesterol [Mass/Vol] 136 mg/dL 0 - 199 mg/dL [facility] Comment on above: ATP III Cholesterol classification is Desirable. Cholesterol in HDL [Mass/Vol] 30 mg/dL Low 40 - 59 mg/dL [facility] Comment on above: ATP III HDL [...] [Mass/Vol] 86 mg/dL 0 - 129 mg/dL [facility] Comment on above: ATP III LDL Classifi cation is Optimal. Triglyceride, Fasting 98 mg/dL 0 - 15 0 mg/dL [facility] Comment on above: ATP III Triglyceride s Classification is Normal. No Panel Informationon 06-15 Interpretation and review of laboratory results Abnormal [facility] CBCon 04-02-2022 Hematocrit (Bld) [Volume fraction] 45.9 % 42 - 52 % [facility] Hemoglobin (Bld) [Mass/Vol] 15.0 g/dL 14 - 18 g/dL [facility] Interpretation and review of laboratory results Abnormal [facility] MCH (RBC) [Entitic mass] 31.5 pg High 27 - 31.3 pg [facility] MCHC (RBC) [Mass/Vol] 32.8 % Low 33 - 37 % [facility] MCV (RBC) [Entitic vol] 96.0 fL 80 - 100 fL [facility] Platelet distribution width (Bld) [Ratio] 15.1 % High 11.5 - 14.5 % [facility] Platelets (Bld) [#/Vol] 207 10*3/uL 130 - 400 K/uL [facility] RBC (Bld) [#/Vol] 4.78 10*6/uL [facility] WBC (Bld) [#/Vol] 7.0 10*3/uL 4.8 - 10.8 K/uL [facility] XR CHEST (2 VW)on 04-02-2022 NO ACUTE CARDIOPULMO NARY DISEASE. [facility] RADIOLOGY Described EXAMINATIO N: XR CHEST (2 VW) CLINICAL HISTORY: SHORTNESS OF BREATH COMPARISONS: CT CHEST, JUNE 24, 2021. FINDINGS: Osseous structures are intact. Cardiopericardial silhouette is normal. Pulmonary vasculature is normal. Lungs are clear. [facility] RADIOLOGY Signer, MD Darci - 04/02/2022 Described EXAMINATION: XR CHEST (2 VW) CLINICAL HISTORY: SHORTNESS OF BREATH COMPARISONS: CT CHEST, JUNE 24, 2021. FINDINGS: Osseous structures are intact. Cardiopericardial silhouette is normal. Pulmonary vasculature is normal. Lungs are clear. IMPRESSION: NO ACUTE CARDIOPULMONARY DISEASE. [employer] Phone: Radiology Study observation (narrative) [employer] Phone: XR CHEST (2 VW)Ordered By: Binh Rosales on 04-02-2022 [employer] Phone: TSH with ReflexOrdered By: Liseth Rey on 07-03-2021 TSH Qn 1.18 m[IU]/L [employer] Phone: [employer] Phone: CBCOrdered By: Jarad Rey on 06-12-2021 Hematocrit (Bld) [Volume fraction] 45.9 % 42.0 - 52.0 % [employer] Phone: Hemoglobin.gastrointe stinal spec 1 Ql (Stl) 15.5 g/dL 14.0 - 18.0 g/dL [employer] Phone: Interpretation and review of laboratory results Abnormal [employer] Phone: MCH (RBC) [Entitic mass] 31.7 pg High 27.0 - 31.3 pg [employer] Phone: MCHC (RBC) [Mass/Vol] 33.7 % 33.0 - 37.0 % [employer] Phone: MCV (RBC) [Entitic vol] 94.1 fL 80.0 - 100.0 fL [employer] Phone: Platelet distribution width (Bld) [Ratio] 14.6 % High 11.5 - 14.5 % [employer] Phone: Platelets (Bld) [#/Vol] 239 10*3/uL 130 - 400 K/uL [employer] Phone: RBC (Bld) [#/Vol] 4.87 10*6/uL [employer] Phone: WBC (Bld) [#/Vol] 6.9 10*3/uL 4.8 - 10.8 K/uL [employer] Phone: [employer] Phone: Comprehensive Metabolic Pane l, FastingOrdered By: Jarad Rey on 06-12-2021 Albumin [Mass/Vol] 4.1 g/dL 3.5 - 4.6 g/dL [employer] Phone: ALP (Bld) [Catalytic activity/Vol] 120 U/L High 35 - 104 U/L [employer] Phone: ALT [Catalytic activity/Vol] 13 U/L 0 - 41 U/L [employer] Phone: Anion gap [Moles/Vol] 9 mmol/L [facility] [employer] Phone: AST [Catalytic activity/Vol] 19 U/L 0 - 40 U/L [employer] Phone: Bilirubin [Mass/Vol] 0.6 mg/dL 0.2 - 0 .7 mg/dL [employer] Phone: Calcium [Mass/Vol] 9.3 mg/dL 8.5 - 9.9 mg/dL [employer] Phone: Chloride [Moles/Vol] 105 mmol/L 20:20 [employer] Phone: CO2 [Moles/Vol] 24 mmol/L [employer] Phone: Creatinine [Mass/Vol] 0.98 mg/dL 0.70 - 1.20 mg/dL [employer] Phone: Free PSA/Total PSA [Mass fraction] 6.4 g/dL 6.3 - 8.0 g/dL [employer] Phone: GFR >60.0 >60 20:20 Mobile Phone: Comment on above: >60 mL/min/1.73m2 EG FR, calc. for ages 18 and older using the MDRD formula (not corrected for weight), is valid for stable renal function. GFR Non- >60.0 >60 [employer] Phone: Comment on above: >60 mL/min/1.73m2 EG FR, calc. for ages 18 and older using the MDRD formula (not corrected for weight), is valid for stable renal function. Globulin (S) [Mass/Vol] 2.3 g/dL 2.3 - 3.5 g/dL [employer] Phone: Glucose [Mass/Vol] 103 mg/dL High 70 - 99 mg/dL [employer] Phone: Potassium [Moles/Vol] 4.7 mmol/L [facility] [employer] Phone: Sodium [Moles/Vol] 138 mmol/L [employer] Phone: Urea nitrogen (BldV) [Mass/Vol] 16 mg/dL 8 - 23 mg/dL [employer] Phone: Lipid, FastingOrdered By: Wilmer Rey on 06-12-2021 Cholesterol [Mass/Vol] 127 mg/dL 0 - 199 mg/dL [employer] Phone: Comment on above: ATP III Cholesterol classification is Desirable. Cholesterol in HDL [Mass/Vol] 28 mg/dL Low 40 - 59 mg/dL [employer] Phone: Comment on above: ATP III HDL [...] [Mass/Vol] 83 mg/dL 0 - 129 mg/dL [employer] Phone: Comment on above: ATP III LDL Classifi cation is Optimal. Triglyceride, Fasting 78 mg/dL 0 - 15 0 mg/dL [employer] Phone: Comment on above: ATP III Triglyceride s Classification is Normal. No Panel InformationOrdered By: Jarad Rey on 06-12-2021 Interpretation and review of laboratory results Abnormal [employer] Phone: [employer] Phone: PSA ScreeningOrdered By: Ollie Rey on 06-12-2021 [employer] Phone: ECHO Complete 2D W Doppler W ColorOrdered By: Justin Espinoza on 02-27-2021 Transthoracic Echocardiography Report (TTE) Demographics Patient Name JULISSA WYATT Gender Male LINDSAY Patient Number [id number] Race Ethnicity Visit Number [id number] Room Number Corporate ID Date of Study 02/27/2021 Referring Physician Alexis Núñez MD Number Date of 1955 Retail Account Representative Rojas Mancini [facility] Age 65 year(s) Interpreting [employer] Physician Cardiology Alexis Núñez MD Procedure Type [...] RV [employer] (more content not included)... [employer] Work Phone: [place] Incoming Cardiovascular Results From [facility] - 02/27/2021 11:35 AM EDT Transthoracic Echocardiography Report (TTE) Demographics Patient Name JULISSA WYATT Gender Male LINDSAY Patient Number [id number] Race Ethnicity Visit Number [id number] Room Number Corporate ID Date of Study 02/27/2021 Referring Physician Alexis Núñez MD Number Date of 1955 Retail Account Representative Rojas Mancini [facility] Age 65 year(s) Interpreting [facility] Physician Cardiology Alexis Núñez MD Procedure Type [...] Root: 2.54 cm LVOT Diameter: 1.82 cm [employer] Phone: [employer] Phone: NM MYOCARDIAL SPECT REST EXE RCISE OR RXOrdered By: Justin Espinoza on 02-27-2021 NORMAL MYOCARDIAL PERFUSION IMAGING WITH NO EVIDENCE OF STRESS-INDUCED ISCHEMIA NOR PRIOR MYOCARDIAL INFARCTION. NORMAL LV EJECTION FRACTION. [employer] Phone: EXAMINATION: PHARMACOLOGICAL SPECT IMAGING CLINICAL HISTORY: [...] tracer uptake throughout the left ventricle segments. [employer] Phone: [facility] Incoming R adiant Results From [facility] - 02/27/2021 6:45 PM EDT EXAMINATION: PHARMACOLOGICAL [...] PRIOR MYOCARDIAL INFARCTION. NORMAL LV EJECTION FRACTION. [employer] Phone: [employer] Work Phone: Comprehensive Metabolic Pane l, Fastingon 06-11-2020 Albumin [Mass/Vol] 4.2 g/dL 3.5 - 4.6 g/dL [place] ALP [Catalytic activity/Vol] 113 U/L High 35 - 104 U/L [place] ALT [Catalytic activity/Vol] 18 U/L 0 - 41 U/L [place] Anion gap [Moles/Vol] 8 mmol/L [place] AST [Catalytic activity/Vol] 32 U/L 0 - 40 U/L [place] Bilirubin Ql (U) 0.8 mg/dL High 0.2 - 0.7 mg/dL [place] Calcium [Mass/Vol] 8.9 mg/dL 8.5 - 9.9 mg/dL [place] Chloride [Moles/Vol] 104 mmol/L [place] CO2 [Moles/Vol] 27 mmol/L [place] Creatinine [Mass/Vol] 1.13 mg/dL 0.7 - 1.2 mg/dL [place] GFR >60.0 >60 [place] Comment on above: >60 mL/min/1.73m2 [place] FR, calc. for ages 18 and older using the MDRD formula (not corrected for weight), is valid for stable renal function. GFR Non- >60.0 >60 [place] Comment on above: >60 mL/min/1.73m2 [place] FR, calc. for ages 18 and older using the MDRD formula (not corrected for weight), is valid for stable renal function. Globulin (S) [Mass/Vol] 2.1 g/dL Low 2.3 - 3.5 g/dL [place] Glucose [Mass/Vol] 101 mg/dL High 70 - 99 mg/dL [place] Interpretation and review of laboratory results Abnormal [place] Potassium [Moles/Vol] 4.2 mmol/L [place] Protein [Mass/Vol] 6.3 g/dL 6.3 - 8 g/dL [place] Sodium [Moles/Vol] 139 mmol/L [place] Urea nitrogen [Mass/Vol] 18 mg/dL 8 - 23 mg/dL [place] Lipid, Fastingon 06-11-2020 Cholesterol [Mass/Vol] 137 mg/dL 0 - 199 mg/dL [place] Comment on above: ATP III Cholesterol classification is Desirable. Cholesterol in HDL [Mass/Vol] 34 mg/dL Low 40 - 59 mg/dL [place] Comment on above: ATP III HDL [...] [Mass/Vol] 87 mg/dL 0 - 129 mg/dL [place] Comment on above: ATP III LDL Classifi cation is Optimal. Interpretation and review of laboratory results Abnormal [place] Triglyceride, Fasting 79 mg/dL 0 - 15 0 mg/dL [place] Comment on above: ATP III Triglyceride s Classification is Normal. Comprehensive Metabolic Pane l, Fastingon 05-15-2019 Albumin [Mass/Vol] 4.1 g/dL 3.5 - 4.6 g/dL [place] ALP [Catalytic activity/Vol] 135 U/L High 35 - 104 U/L [place] ALT [Catalytic activity/Vol] 12 U/L 0 - 41 U/L [place] Anion gap [Moles/Vol] 9 mmol/L [place] AST [Catalytic activity/Vol] 25 U/L 0 - 40 U/L [place] Bilirubin Ql (U) 1.2 mg/dL High 0.2 - 0.7 mg/dL [place] Calcium [Mass/Vol] 8.9 mg/dL 8.5 - 9.9 mg/dL [place] Chloride [Moles/Vol] 106 mmol/L [place] CO2 [Moles/Vol] 25 mmol/L [place] Creatinine [Mass/Vol] 0.97 mg/dL 0.7 - 1.2 mg/dL [place] GFR >60.0 >60 [place] Comment on above: >60 mL/min/1.73m2 EG FR, calc. for ages 18 and older using the MDRD formula (not corrected for weight), is valid for stable renal function. GFR Non- >60.0 >60 [place] Comment on above: >60 mL/min/1.73m2 EG FR, calc. for ages 18 and older using the MDRD formula (not corrected for weight), is valid for stable renal function. Globulin (S) [Mass/Vol] 2.6 g/dL 2.3 - 3.5 g/dL [place] Glucose [Mass/Vol] 95 mg/dL 70 - 99 mg/dL [place] Potassium [Moles/Vol] 4.1 mmol/L [place] Protein [Mass/Vol] 6.7 g/dL 6.3 - 8 g/dL [place] Sodium [Moles/Vol] 140 mmol/L [place] Urea nitrogen [Mass/Vol] 15 mg/dL 8 - 23 mg/dL [place] Lipid, Fastingon 05-15-2019 Cholesterol [Mass/Vol] 107 mg/dL 0 - 199 mg/dL [place] Comment on above: ATP III Cholesterol classification is Desirable. Cholesterol in HDL [Mass/Vol] 29 mg/dL Low 40 - 59 mg/dL [place] Comment on above: ATP III HDL [...] [Mass/Vol] 64 mg/dL 0 - 129 mg/dL [place] Comment on above: ATP III LDL Classifi cation is Optimal. Triglyceride, Fasting 72 mg/dL 0 - 15 0 mg/dL [place] Comment on above: ATP III Triglyceride s Classification is Normal. Otheron 05-15-2019 Interpretation and review of laboratory results Abnormal [place] Follow Up (Plastic Surgery)o n 06-01-2018 [...] Jun 01 2018 5:13PM EST (Author) Normal [facility] Follow Up (Plastic Surgery)o n 05-18-2018 [...] Reported Medications Recorded Physical ExamFree Text PE_UH: Graft take is satisfactorySteri-Strips were undisturbed *Diagnoses/Problems 1. Skin cancer, basal cell (173.91) (C44.91) *Patient Discussion/SummaryPatient Discussion Summary Free Text Note Form: Patient was advised to keep the areas attended toPatient to come back and couple weeks. Signatures Electronically signed by : Esa Castañeda MD; May 18 2018 4:39PM EST (Author) Normal [facility] PATHOLOGY SPECIMENon [address] [facility] Comment on above: Order Comment: Comme nt: LEFT LEG BASAL CELL CARCINOMA Result Comment: Note : Specimens received on or after April:* Reports will be faxed to all physician's office.If you are a physician or have access to [facility]:* Pathology and Cytology reports are located in [employer] [facility] in the folder labeled Medical Record Forms.* Reports are also in the Physician Portal.* For assistance locating reports call: (LAB) [phone] Performed By: #### L PATH ####[place] [address] [place] [address] Follow Up (Plastic Surgery)o n 05-11-2018 Follow [...] to the leg Review of SystemsFree Text ROS_: Patient states that there are no other concerns at this time besides the chief complaint. *Active Problems 1. Skin cancer, basal cell (173.91) (C44.91) *Allergies 1. No Known Allergies *Current Meds 1. No Reported Medications Recorded Physical ExamFree Text PE_: Left leg is healing wellStent dressing and [...] May 11 2018 3:31PM EST (Author) Normal [employer] OPERATIVE REPORTon 8 OPERATIVE REPORT This is a preliminar y report only, as the practitioner review and authentication has not occurred.Name: RAMON COSTAMR: [id number]: Esa Castañeda M.D.DATE OF SURGERY: 05/04/2018ANESTHESIA:1ST HUMAN RESOURCES TALENT MANAGER: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 No complications [facility] RAMON [id number] [address] [place] [id number]: Esa Castañeda MDOPERATIVE REPORTencountered during the procedure. DANIEL Vo/Veronika/[id number]: 05/11/2018 15:12:35 E/S:Electronical ly Signed [facility] RAMON [id number] [address] [place] [id number]: Esa Castañeda MDOPERATIVE REPORT Normal [facility] Surgical Pathology Depar tmenton 05-04-2018 [facility] Surgical Pathology Department Name RAMON COSTA Pathologist: MARGUERITE PERRYate of Procedure: 05/04/2018Date Received: 05/04/2018Date Reported 05/13/2018Submitting Physician: ESA CASTAÑEDA MDLocation: [facility] Other External # [id number] FINAL DIAGNOSISA. LEFT LEG, BASAL CELL CARCINOMA, EXCISION:-- BASAL CELL CARCINOMA, SUPERFICIAL GROWTH PATTERN AND SCAR, INKED MARGINSFREE IN PLANES OF SECTIONS EXAMINED.Real Estate Leasing Manager: Tono Mars MD. The gross and/or microscopic findings were reviewed in conjunction withpathology resident, Valerie Doherty M.D. Electronically Signed Out By BELKIS COFFMAN MD/[facility] PSY[facility]RIC CENTERkalyn the signature on this report, the individual [...] LEG BASAL CELL CARCINOMA Other Case Numbers [id number] Description:Received in formalin, labeled with the patient's [...] 3 inferior body of ellipse 4 inferior tipd/05/05/2018 Normal [facility] Comment on above: Performed By: #### U [facility] ####[facility] Surgical Pathology [id number] [facility] [address] Office Visiton 04-15-2018 Office Visit Chief ComplaintThe [...] Apr 15 2018 5:29PM EST (Author) Normal [facility]Sangart [facility] And Physical [address] [place], [place] [address]WINVHFP AND PHYSICAL EXAMINATIONPatient Name:RAMON COSTAJ.W. [facility] Hospitalkolby Record Number: [id number] Physician: Quirino Sheehan M.D. Date: 04/26/2018Discharge Date:CHIEF [...] under MAC anesthesia.Quirino Sheehan M.D.INTERNAL JOB NUMBER: [id number]:Electronically signed by Quirino Sheehan MD on 01 Apr 2018 12:58:18 GMT Normal [facility] CBC With Differentialon 09-30 Basophils Auto #/vol (Bld) 0.04 10*3/uL Normal 0.01-0.09 [facility] Comment on above: Performed By: #### 2 [id number] ####[address] [place] [address] Basophils/100 WBC Auto (Bld) 0.6 % Normal 0.0-1.3 [facility] Healthcare Comment on above: Performed By: #### 2 643410 ####[facility] Zpb[address] [place] [address] Eosinophils Auto #/vol (Bld) 0.15 10*3/uL Normal 0.01-0.46 [facility] Comment on above: Performed By: #### 2 234282 ####[facility] Rtv[address] [place] [address] Eosinophils/100 WBC Auto (Bld) 2.4 % Normal 0.0-6.7 [facility] Comment on above: Performed By: #### 2 878864 ####[facility] Lws067 [place] [address] Erythrocyte distribution width Auto Ratio (RBC) 13.3 % Normal 12.0-15.4 [facility] Comment on above: Performed By: #### 2 323735 ####[facility] Vpk[address] [place] [address] Hematocrit Auto Volume Fraction (Bld) 44.4 % Normal 38.4-54.9 [facility] Healthcare Comment on above: Performed By: #### 2 191032 ####[facility] Rqx839 [place] [address] Hemoglobin mass conc (Bld) 15.0 g/dL Normal 12.8-17.7 [facility] Healthcare Comment on above: Performed By: #### 2 358422 ####[facility] Huh[address] [place] [address] Imm Grans Absolute 0.02 10*3/uL Normal 0.00-0.21 [facility] Comment on above: Performed By: #### 2 319859 ####[facility] Rnt553 [place] [address] Immature granulocytes #/vol (Bld) 0.3 % Normal [facility] Comment on above: Performed By: #### 2 667814 ####[facility] Qia[address] [place] [address] Lymphocytes Auto #/vol (Bld) 2.17 10*3/uL Normal 0.40-2.84 [facility] Comment on above: Performed By: #### 2 352451 ####[facility] Qzg[address] [place] [address] Lymphocytes/100 WBC Auto (Bld) 34.5 % Normal 9.4-41.1 [facility] Healthcare Comment on above: Performed By: #### 2 530514 ####[facility] Iys692 [place] [address] MCH Auto Entitic mass (RBC) 31.6 pg Normal 27.5-32.9 [facility] Healthcare Comment on above: Performed By: #### 2 356481 ####[facility] Nlm[address] [place] [address] MCHC Auto mass conc (RBC) 33.8 g/dL Normal 30.5-35.4 [facility] Healthcare Comment on above: Performed By: #### 2 221471 ####[facility] Qpb[address] [place] [address] MCV Auto Entitic volume (RBC) 93.5 fL Normal 83.3-98.2 [facility] Comment on above: Performed By: #### 2 038137 ####[facility] Jag[address] [place] [address] Monocytes Auto #/vol (Bld) 0.56 10*3/uL Normal 0.25-1.33 [facility] Healthcare Comment on above: Performed By: #### 2 236043 ####[facility] Vvo[address] [place] [address] Monocytes/100 WBC Auto (Bld) 8.9 % Normal 3.0-16.2 [facility] Healthcare Comment on above: Performed By: #### 2 341484 ####[facility] Zbo[address] [place] [address] Neutrophils Absolute 3.35 10*3/uL Normal 2.22-7.53 [facility] Healthcare Comment on above: Performed By: #### 2 049824 ####[facility] Xvz[address] [place] [address] Neutrophils/100 WBC Auto (Bld) 53.3 % Normal 46.2-79.1 [facility] Healthcare Comment on above: Performed By: #### 2 104271 ####[facility] Pnh7[address] [place] [address] NRBC Absolute 0.00 10*3/uL Normal [facility] Healthcare Comment on above: Performed By: #### 2 [id number] ####[facility] Yhp438 [place] [address] NRBC Automated 0.0 /100{WBCs} Normal [facility] Healthcare Comment on above: Performed By: #### 2 003964 ####[facility] Pom[address] [place] [address] Platelet mean volume Auto Entitic volume (Bld) 8.5 fL Low 9.9-12.1 [facility] Healthcare Comment on above: Performed By: #### 2 921688 ####[facility] Chp[address] [place] [address] Platelets Auto #/vol (Bld) 180 10*3/uL Normal 155-404 [facility] Healthcare Comment on above: Performed By: #### 2 148181 ####[facility] Csu[address] [place] [address] RBC Auto #/vol (Bld) 4.75 10*6/uL Normal 4.08-6.37 [facility] Healthcare Comment on above: Performed By: #### 2 665607 ####[facility] Ngp[address] [place] [address] RDW SD 45.9 fL Normal 39.3-48.6 [facility] Healthcare Comment on above: Performed By: #### 2 485736 ####[facility] Cwu[address] [place] [address] WBC Auto #/vol (Bld) 6.3 10*3/uL Normal 4.2-11.0 [facility] Healthcare Comment on above: Performed By: #### 2 804033 ####[facility] Mfe[address] [place] [address] Comprehensive Metabolic Pane otoniel 10-15-2017 Albumin mass conc 4.0 g/dL Normal 3.4-5.0 [facility] Healthcare Comment on above: Performed By: #### 1 696518 ####[facility] Kwr[address] [place] [address] Albumin/Globulin mass ratio 1.5 {ratio} Normal 0.9-2.4 [facility] Healthcare Comment on above: Performed By: #### 1 592512 ####[facility] Sft[address] [place] [address] ALP enzyme act/vol 116 U/L Normal 45-117 [facility] Comment on above: Performed By: #### 1 375385 ####[facility] Buu[address] [place] [address] ALT enzyme act/vol 18 U/L Normal 10-52 [facility] Comment on above: Performed By: #### 1 392299 ####[facility] Vmk[address] [place] [address] Anion gap 3 molar conc 9 mmol/L Low 10-20 [facility] Healthcare Comment on above: Performed By: #### 1 268452 ####[facility] Ctu[address] [place] [address] AST enzyme act/vol 13 U/L Normal 13-39 [facility] Healthcare Comment on above: Performed By: #### 1 317353 ####[facility] Czr[address] [place] [address] Bilirubin mass conc 0.8 mg/dL Normal 0.0-1.2 [facility] Healthcare Comment on above: Performed By: #### 1 106207 ####[facility] Jtc[address] [place] [address] Calcium mass conc 9.1 mg/dL Normal 8.6-10.3 [facility] Healthcare Comment on above: Performed By: #### 1 210429 ####[facility] Zry[address] [place] [address] Chloride molar conc 108 mmol/L High 98-107 [facility] Comment on above: Performed By: #### 1 708515 ####[facility] Bez[address] [place] [address] Creatinine mass conc 1.12 mg/dL Normal 0.50-1.30 [facility] Comment on above: Performed By: #### 1 280653 ####[facility] Hur[address] [place] [address] GFR/1.73 sq M.predicted MDRD vol rate/area mL/min/{1.73_m2} Normal [facility] Healthcare Comment on above: Result Comment: Inte rpretation for Chronic Kidney Disease:Stages 1&2 >60 Healthy or potential kidney damage.Mild decrease of GFR.Stage 3 30-59 Moderate decrease of GFR.Stage 4 15-29 Severe decrease of GFR.Stage 5 <15 Kidney failure or on dialysis. Performed By: #### 1 781273 ####[facility] Cdn[address] [place] [address] Glucose mass conc 104 mg/dL High 70-100 [facility] Healthcare Comment on above: Performed By: #### 1 534912 ####[facility] Ubt[address] [place] [address] HCO3 molar conc (Bld) 28 mmol/L Normal 21-32 [facility] Healthcare Comment on above: Performed By: #### 1 248969 ####[facility] Zfe[address] [place] [address] Potassium molar conc 4.3 mmol/L Normal 3.5-5.1 [facility] Healthcare Comment on above: Performed By: #### 1 084223 ####[facility] Aum[address] [place] [address] Protein mass conc 6.6 g/dL Normal 6.4-8.2 [facility] Healthcare Comment on above: Performed By: #### 1 399440 ####[facility] Mdu[address] [place] [address] Sodium molar conc 141 mmol/L Normal 136-145 [facility] Healthcare Comment on above: Performed By: #### 1 316133 ####[facility] Pqh[address] [place] [address] Urea nitrogen mass conc 12 mg/dL Normal 6-23 [facility] Healthcare Comment on above: Performed By: #### 1 389643 ####[facility] Bid[address] [place] [address] Urea nitrogen/Creatinine mass ratio 11 mg/mg Normal 5-25 [facility] Comment on above: Performed By: #### 1 750802 ####[facility] Ven[address] [place] [address] Lipid Panelon 10-15-2017 Cholesterol in HDL mass conc 40 mg/dL Normal [facility] Healthcare Comment on above: Result Comment: Norm al Mod Risk High Risk5-9 >48 42-48 <4210- 14 >45 40-45 <4015-19 >38 34-38 <34Adult >39 Performed By: #### 1 648488 ####[facility] Hbu[address] [place] [address] Cholesterol in LDL mass conc 74 mg/dL Normal <130 [facility] Comment on above: Performed By: #### 1 011267 ####[facility] Fao[address] [place] [address] Cholesterol in VLDL mass conc 16 mg/dL Normal <30 [facility] Healthcare Comment on above: Performed By: #### 1 330495 ####[facility] Vnd[address] [place] [address] Cholesterol mass conc 130 mg/dL Normal <200 [facility] Healthcare Comment on above: Performed By: #### 1 499588 ####[facility] Xtd[address] [place] [address] Cholesterol.total/Cho lesterol in HDL mass ratio 3.2 {ratio} Normal [facility] Healthcare Comment on above: Performed By: #### 1 647432 ####[facility] Evc[address] [place] [address] Triglyceride mass conc 81 mg/dL Normal <150 [facility] Healthcare Comment on above: Result Comment: 150- 199 Borderline [id number] High>500 Very High Performed By: #### 1 483131 ####[facility] Zie[address] [place] [address] Prostate Specific Antigen, T otalon 10-15-2017 Protein mass conc 1.2 ng/mL Normal 0.0-4.0 [facility] Healthcare Comment on above: Result Comment: 5-Al pha Reductase Inhibitors (e.g. Proscar,Finasteride, Avodart, Dutasteride and Lianne)may falsely decrease serum total PSA by 50%.To achieve the corrected value, the reportedPSA should be multiplied X 2. Performed By: #### 1 910132 ####[facility] Gdt[address] [place] [address] TSHon 10-15-2017 Thyrotropin Qn 0.54 mU/L Normal 0.44-3.98 [facility] Comment on above: Performed By: #### 1 202035 ####[facility] Quj[address] [place] [address] XR Abdomen 1 Viewon 10-06-19 18 XR Abdomen 1 View Exam Date/Time: 14:39 ESTReason for Exam:Kidney stoneReportXR ABDOMEN 1 [...] the lowerpole. The bowel gas pattern is nonobstructive.IMPRESSION: 1. On the current study, there is suggestion of a single 3 mm mid rightureteral stone.2. Small bilateral renal stones are redemonstrated.3. Right ureteral stent in stable position. FINAL REPORT Dictated: 10/06/2017 2:56 pm Ramon Hampton DOSigned (Electronic Signature): 10/06/2017 2:56 pmSigned by: Ramon Hampton DO Technologist: TEX [facility] XR Abdomen 1 Viewon 09-10-19 [...] stones. FINAL REPORT Dictated: 09/10/2017 12:33 pm Ramon Hampton DOSigned (Electronic Signature): 09/10/2017 12:33 pmSigned by: Ramon Hampton DO Technologist: TEX [facility] Calculus Analysison 09-02-19 18 Ammonium Acid Urate Not Performed Normal [facility] Comment on above: Performed By: #### 2 377739 ####[address] [place] [address] Body weight Measured 176.0 mg Normal [facility] Comment on above: Performed By: #### 2 870148 ####HEATHER RouUupc0418 [place] [address] [place] Hydrogen Phos Not Performed [facility] Comment on above: Performed By: #### 2 208674 ####HEATHER TusQqjo1068 [place] [address] [place] Oxalate, Dihydrate Not Performed [facility] Comment on above: Performed By: #### 2 032748 ####HEATHER CdyIyqy4104 [place] [address] [place] Oxalate, Monohydr 95 % Normal [facility] Comment on above: Performed By: #### 2 802619 ####HEATHER WnoLvku7631 [place] [address] Calcium Bilirubinate Not Performed Normal [facility] Comment on above: Performed By: #### 2 844230 ####HEATHER RogersTatPnei7949 [place] [address] Calcium Carbonate Not Performed [facility] Comment on above: Performed By: #### 2 418323 ####HEATHER RogersKelRjqw1932 [place] [address] Calcium Phos 05 % [facility] Comment on above: Performed By: #### 2 443817 ####HEATHER Youngo[address]25 [place] [address] Cellular Material Not Performed [facility] Comment on above: Performed By: #### 2 889193 ####HEATHER Youn[address] [place] [address] Cholesterol mass conc Not Performed [facility] Comment on above: Performed By: #### 2 359996 ####HEATHER Youn[address] [place] [address] Color Nom (U) Brown [facility] Comment on above: Performed By: #### 2 434376 ####HEATHER [address] [place] [address] Comment 1 Not Performed [facility] Comment on above: Performed By: #### 2 426976 ####HEATHER Y[address]25 [place] [address] Comment 2 Note: [facility] Comment on above: Result Comment: Plea se do not submit specimens on Q-Tips, in tape, onfilters, or in liquids such as blood, urine or formalin.This may cause unnecessary biohazards, erroneous resultsand/or delay in the processing of the specimen. Performed By: #### 2 963171 ####HEATHER RogersNlzCnie8460 [place] [address] Comment 3 Comment [facility] Comment on above: Result Comment: Fady dorsey questions regarding Calculi Analysis contactLarned State HospitalCorp at: [phone]. Performed By: #### 2 170771 ####HEATHER [address]NluPnbp[address] [place] [id number] Composition Comment [facility] Comment on above: Result Comment: Perc entage (Represents the % composition) Performed By: #### 2 687687 ####HEATHER JbhXwdk6099 [place] [address] Cystine Not Performed [facility] Comment on above: Performed By: #### 2 522159 ####HEATHER AvmSwni7049 [place] [address] Disclaimer: Comment [facility] Comment on above: Result Comment: This test was developed and its performance characteristicsdetermined by [facility]. It has not been cleared orapproved by the Food and Drug Administration.Performed At: [address] [id number] Figueroa Ruth MD Ph:[phone] Performed By: #### 2 538345 ####HEATHERHarmony RogersLrxHyur1463 [place] [address] Dried Blood Not Performed [facility] Comment on above: Performed By: #### 2 742411 ####HEATHERHarmony RogersPygTwyi3044 [place] [address] Mag [place] Phos Not Performed [facility] Comment on above: Performed By: #### 2 287196 ####HEATHER BnbXycj7207 [place] [address] Newberyite Not Performed [facility] Comment on above: Performed By: #### 2 649845 ####HEATHER VbaMxaa1731 [place] [address] Nidus No Nidus visualized [facility] Comment on above: Performed By: #### 2 786952 ####HEATHER KiiUofv7784 [place] [address] Note: Comment [facility] Comment on above: Result Comment: Calc jose rafael report without photograph will follow via computer,mail, or cigar binder delivery. Performed By: #### 2 537055 ####EHATHER ZmgBrma5433 [place] [address] Shell Not Performed [facility] Comment on above: Performed By: #### 2 493895 ####HEATHER UcyPubb5912 [place] [address] Size Comment [facility] Comment on above: Result Comment: Spec imen received as fragments. Performed By: #### 2 978315 ####HEATHER IomHicw1894 [place] [address] Sodium molar conc Not Performed Normal [facility] Comment on above: Performed By: #### 2 494814 ####HEATHER MahTssn2933 [place] [address] Surface Crystals Not Performed Normal [facility] Comment on above: Performed By: #### 2 609815 ####HEATHER YzeIpzr3832 [place] [address] Triamterene Not Performed Normal [facility] Comment on above: Performed By: #### 2 701561 ####HEATHER KbbGmsp[address] [place] [address] Uric Acid Dihydrate Not Performed Normal [facility] Comment on above: Performed By: #### 2 142243 ####HEATHER RogersEnwZayh6866 [place] [address] Uric Acid. Not Performed Normal [facility] Comment on above: Performed By: #### 2 687026 ####HEATHER EowSfih6583 [place] [address] XR Abdomen APon 08-19-2017 INR Coag RelTime [...] pmSigned by: Sundar Jacobsen MD Technologist: STEPHANIE [facility] Calculus Analysison 08-13-20 Ammonium Acid Urate Not Performed [facility] Comment on above: Performed By: #### 2 370090 ####HEATHER VepKtmv5687 [place] [address] Body weight Measured 6.9 mg [facility] Comment on above: Performed By: #### 2 580515 ####HEATHERHarmony RogersLssQkit9527 [place] [address] [place] Hydrogen Phos Not Performed [facility] Comment on above: Performed By: #### 2 863335 ####HEATHERHarmony RogersVjqNrrx[address] [place] [address] [place] Oxalate, Dihydrate Not Performed [facility] Comment on above: Performed By: #### 2 013001 ####HEATHERHarmony RogersSqaTvez4741 [place] [address] [place] Oxalate, Monohydr 97 % [facility] Comment on above: Performed By: #### 2 434279 ####HEATHERHarmony RogersFqcSdmu3643 [place] [address] Calcium Bilirubinate Not Performed [facility] Comment on above: Performed By: #### 2 933141 ####HEATHERHarmony RogersBgaCdsh3256 [place] [address] Calcium Carbonate Not Performed [facility] Comment on above: Performed By: #### 2 820886 ####HEATHERHarmony RogersRpxXmxd9354 [place] [address] Calcium Phos 03 % [facility] Comment on above: Performed By: #### 2 658012 ####HEATHERHarmony oRgersLvcIxsl8665 [place] [address] Cellular Material Not Performed [facility] Comment on above: Performed By: #### 2 476169 ####HEATHERHarmony RogersArxTdln8224 [place] [address] Cholesterol mass conc Not Performed [facility] Comment on above: Performed By: #### 2 066406 ####HEATHERHarmony RogersExaIqpv6544 [place] [address] Color Nom (U) Brown [facility] Comment on above: Performed By: #### 2 833969 ####HEATHER RogersQyvYtef5694 [place] [address] Comment 1 Not Performed [facility] Comment on above: Performed By: #### 2 353677 ####HEATHER RogersZbjTvwu0697 [place] [address] Comment 2 Not Performed [facility] Comment on above: Performed By: #### 2 019255 ####HEATHER RogersUklZovc8612 [place] [address] Comment 3 Comment [facility] Comment on above: Result Comment: Phys marielaan questions regarding Calculi Analysis contactHouse of the Good Samaritan at: [phone]. Performed By: #### 2 256959 ####HEATHER RogersNukCast4751 [place] [address] Composition Comment [facility] Comment on above: Result Comment: Perc entage (Represents the % composition) Performed By: #### 2 982545 ####HEATHER RogersOxjGmlk3547 [place] [address] Cystine Not Performed [facility] Comment on above: Performed By: #### 2 560132 ####HEATHER Youngo1025 [place] [address] Disclaimer: Comment [facility] Comment on above: Result Comment: This test was developed and its performance characteristicsdetermined by [facility]. It has not been cleared orapproved by the Food and Drug Administration.Performed At: [address] [id number] William F MD Ph:[phone] Performed By: #### 2 321563 ####HEATHER RogersKzvHkxu8069 [place] [address] Dried Blood Not Performed [facility] Comment on above: Performed By: #### 2 002730 ####HEATHER ZrsEayp6004 [place] [address] Mag James Phos Not Performed [facility] Comment on above: Performed By: #### 2 112772 ####HEATHER RogersEguUbio5515 [place] [address] Newberyite Not Performed [facility] Comment on above: Performed By: #### 2 514629 ####HEATHER ZnwAnqr1669 [place] [address] Nidus Comment [facility] Comment on above: Result Comment: Nidu s composed of Calcium oxalate monohydrate. Performed By: #### 2 423236 ####HEATHERHarmony RogersKwbHhwv2133 [place] [address] Note: Comment [facility] Comment on above: Result Comment: Calc jose rafael report without photograph will follow via computer,mail, or cigar binder delivery. Performed By: #### 2 674214 ####HEATHERHarmony RogersLnoQrzn9714 [place] [address] Shell Not Performed [facility] Comment on above: Performed By: #### 2 180466 ####HEATHERHarmony RogersBpnKcpg6951 [place] [address] Size Comment [facility] Comment on above: Result Comment: Spec imen received as fragments. Performed By: #### 2 411988 ####HEATHER ZvdFyao4826 [place] [address] Sodium molar conc Not Performed [facility] Comment on above: Performed By: #### 2 [id number] ####HEATHERHarmony RogersTopLpuc9184 [place] [address] Surface Crystals Not Performed [facility] Comment on above: Performed By: #### 2 307602 ####HEATHERHarmony RogersOvoOwre1695 [place] [address] Triamterene Not Performed [facility] Comment on above: Performed By: #### 2 436234 ####HEATHER WkcNqhv2674 [place] [address] Uric Acid Dihydrate Not Performed [facility] Comment on above: Performed By: #### 2 487131 ####HEATHER NniZqqc0647 [place] [address] Uric Acid. Not Performed [facility] Comment on above: Performed By: #### 2 693436 ####HEATHERHarmony RogersUmiOtzs4310 [place] [address] C Urineon 08-12-2017 C Urine Final Report: Rare N ormal skin naima isolated [facility] Comment on above: Performed By: #### 2 460351 ####HEATHER SddCdbe7528 [place] [address] XR Abdomen APon 08-11-2017 XR Abdomen AP [...] Bowel gas pattern is nonobstructive. No acuteosseous abnormalities.IMPRESSION:1 . Bilateral nephrolithiasis.2. Right ureteral stent in situ. FINAL REPORT Dictated: 08/11/2017 11:34 am Wally Maldonado MD LSigned (Electronic Signature): 08/11/2017 11:34 amSigned by: Wally Maldonado MD Technologist: MGW Normal [facility] XR Urography Retrograde Rig ton 08-11-2017 INR Coag RelTime (Bld) Exam [...] The lower endis not included on the examination.IMPRESSION:Rig ht ureteric stent.Mild hydronephrosis. FINAL REPORT Dictated: 08/11/2017 11:59 am Sundar Jacobsen MD KSigned (Electronic Signature): 08/11/2017 11:59 amSigned by: Sundar Jacobsen MD Technologist: HLL Normal [facility] Auto Diffon 08-10-2017 Basophils Auto #/vol (Bld) 0.0 E3/mcL Normal 0.0-0.2 [facility] Comment on above: Order Comment: Order Added by Discern Expert. Performed By: #### 2 185637 ####HEATHERHarmony RogersDkeEisu5131 [place] [address] Basophils/100 WBC Auto (Bld) 0.2 % Normal 0.0-2.0 [facility] Comment on above: Order Comment: Order Added by Discern Expert. Performed By: #### 2 030023 ####HEATHERHarmony RogersEiiXbmn3732 [place] [address] Eos Absolute 0.0 E3/mcL Normal 0.0-0.7 [facility] Comment on above: Order Comment: Order Added by Discern Expert. Performed By: #### 2 683701 ####HEATHER TitYldf0210 [place] [address] Eosinophils/100 WBC Auto (Bld) 0.5 % Normal 0.0-11.0 [facility] Comment on above: Order Comment: Order Added by Discern Expert. Performed By: #### 2 367276 ####HEATHERHarmony RogersVndNdue8909 [place] [address] Lymphocytes Auto #/vol (Bld) 1.6 E3/mcL Normal 1.2-3.4 [facility] Comment on above: Order Comment: Order Added by Discern Expert. Performed By: #### 2 689803 ####HEATHER XjoGeid5888 [place] [address] Lymphocytes/100 WBC Auto (Bld) 15.4 % Low 20.0-55.0 [facility] Comment on above: Order Comment: Order Added by Discern Expert. Performed By: #### 2 964008 ####HEATHER MxlDhjy2552 [place] [address] Davison Absolute 0.8 E3/mcL High 0.0-0.7 [facility] Comment on above: Order Comment: Order Added by Discern Expert. Performed By: #### 2 456174 ####HEATHER Youngo1025 [place] [address] Monocytes/100 WBC Auto (Bld) 7.4 % Normal 0.0-10.0 [facility] Comment on above: Order Comment: Order Added by Discern Expert. Performed By: #### 2 716481 ####HEATHER Youngo1025 [place] [address] Neutro Absolute 7.9 E3/mcL High 1.4-6.5 [facility] Comment on above: Order Comment: Order Added by Discern Expert. Performed By: #### 2 344352 ####HEATHER Youngo1025 [place] [address] Neutro Auto 76.5 % High 37.0-75.0 [facility] Comment on above: Order Comment: Order Added by Discern Expert. Performed By: #### 2 400839 ####HEATHER Youngo1025 [place] [address] BMPon 08-10-2017 Creatinine mass conc 1.2 mg/dL Normal 0.6-1.3 [facility] Comment on above: Performed By: #### 2 512580 ####HEATHER Youngo1025 [place] [address] Urea nitrogen mass conc 18 mg/dL Normal 7-18 [facility] Comment on above: Performed By: #### 2 388101 ####HEATHER Youngo1025 [place] [address] Urea nitrogen/Creatinine mass ratio 15.0 ratio Normal 5.4-30.0 [facility] Comment on above: Performed By: #### 2 462551 ####HEATHER Youngo1025 [place] [address] Calcium mass conc 8.9 mg/dL Normal 8.4-10.2 [facility] Comment on above: Performed By: #### 2 312840 ####HEATHER Youngo1025 [place] [address] Chloride molar conc 108 mmol/L High 98-107 [facility] Comment on above: Performed By: #### 2 261050 ####HEATHER Youngo1025 [place] [address] CO2 molar conc 24.4 mmol/L Normal 24.0-30.0 [facility] Comment on above: Performed By: #### 2 846422 ####HEATHER Youngo1025 [place] [address] Glucose mass conc 120 mg/dL High 70-99 [facility] Comment on above: Performed By: #### 2 301698 ####HEATHER Youngo1025 [place] [address] Potassium molar conc 3.7 mmol/L Normal 3.5-5.1 [facility] Comment on above: Performed By: #### 2 082330 ####HEATHER Youngo1025 [place] [address] Sodium molar conc 139 mmol/L Normal 136-145 [facility] Comment on above: Performed By: #### 2 834836 ####HEATHER Youngo1025 [place] [address] CBC w/ Auto Diffon 7 Erythrocyte distribution width Auto Ratio (RBC) 13.4 % Normal 11.5-14.5 [facility] Comment on above: Performed By: #### 2 907264 ####HEATHER Youngo1025 [place] [address] Hematocrit Auto Volume Fraction (Bld) 42.7 % Normal 42.0-52.0 [facility] Comment on above: Performed By: #### 2 093232 ####HEATHER Youngo1025 [place] [address] Hemoglobin mass conc (Bld) 14.6 g/dL Normal 13.5-18.0 [facility] Comment on above: Performed By: #### 2 197417 ####HEATHER Youngo1025 [place] [address] MCH Auto Entitic mass (RBC) 31.6 pg High 27.0-31.0 [facility] Comment on above: Performed By: #### 2 169439 ####HEATHER Youngo1025 [place] [address] MCHC Auto mass conc (RBC) 34.2 g/dL Normal 33.0-37.0 [facility] Comment on above: Performed By: #### 2 435514 ####HEATHER RogersVkoJusi5429 [place] [id number] MCV Auto Entitic volume (RBC) 92.5 fL Normal 78.0-100.0 [facility] Comment on above: Performed By: #### 2 588134 ####HEATHER RogersWkcXwly6148 [place] [id number] Platelet mean volume Auto Entitic volume (Bld) 6.6 fL Low 7.4-11.0 [facility] Comment on above: Performed By: #### 2 267178 ####HEATHER RogersGjeRxww2790 [place] [id number] Platelets Auto #/vol (Bld) 201 E3/mcL Normal 130-400 [facility] Comment on above: Performed By: #### 2 239797 ####HEATHER RogersWovMuvd4945 [place] [address] RBC Auto #/vol (Bld) 4.62 E6/mcL Normal 3.90-6.10 [facility] Comment on above: Performed By: #### 2 110271 ####HEATHER RogersBnpOxfq6549 [place] [id number] WBC Auto #/vol (Bld) 10.3 E3/mcL Normal 3.6-11.0 [facility] Comment on above: Performed By: #### 2 644954 ####HEATHER RogersMkyGrrg3280 [place] [id number] CT Abdomen/Pelvis w/o Contra ston 08-10-2017 CT Abdomen/Pelvis w/o Contrast Exam Date/Time:08/10/2017 [...] hernia. FINAL REPORT Dictated: 08/10/2017 4:04 pm José Luis Pendleton MDSigned (Electronic Signature): 08/10/2017 4:04 pmSigned by: José Luis Pendleton MD Technologist: SRH Normal [facility] UA Completeon 08-10-2017 Color Nom (U) [place] Abnormal Yellow [facility] Comment on above: Performed By: #### 2 510608 ####HEATHER RogersUezNdyk6721 [place] [address] Glucose mass conc (U) Negative Normal Negative [facility] Comment on above: Performed By: #### 2 780963 ####HEATHER GxsRwkt3248 [place] [address] Ketones Ql (U) Trace Normal [facility] Comment on above: Performed By: #### 2 681161 ####HEATHER Youngo1025 [place] [address] RBC Test strip #/vol (U) /uL Abnormal 0-3 [facility] Comment on above: Performed By: #### 2 246344 ####HEATHER Youngo1025 [place] [address] UA Blood 3+ Normal Negative [facility] Comment on above: Result Comment: High concentration of Ascorbic Acid present in urine. This may cause False Negative Occ Blood. Review microscopic results and patient's clinical symptoms. Performed By: #### 2 183663 ####HEATHER Youngo1025 [place] [address] UA Ascorbic Acid 40 mg/dL High <=19 [facility] Comment on above: Performed By: #### 2 417591 ####HEATHER UfoYnsv5964 [place] [address] UA Bacteria 1+ /HPF Abnormal None [facility] Comment on above: Performed By: #### 2 490075 ####HEATHER Youngo1025 [place] [address] UA Clarity Cloudy Abnormal Clear [facility] Comment on above: Performed By: #### 2 155431 ####HEATHER RogersXuuSyxy6860 [place] [address] UA Leuk Est 1+ Abnormal Negative [facility] Comment on above: Performed By: #### 2 185568 ####HEATHER AqnZary7799 [place] [address] UA Mucous Occasional Abnormal Trace [facility] Comment on above: Performed By: #### 2 119345 ####HEATHER Youngo1025 [place] [address] UA Nitrite Positive Abnormal Negative [facility] Comment on above: Performed By: #### 2 694433 ####HEATHER RogersNtoAkob5916 [place] [address] UA pH 7.0 Normal 4.6-8.0 [facility] Comment on above: Performed By: #### 2 211026 ####HEATHER BxzNbwy8826 [place] [address] UA Protein 2+ Abnormal Negative [facility] Comment on above: Performed By: #### 2 534562 ####HEATHER Youngo1025 [place] [address] UA Spec Grav 1.015 Normal 1.003-1.030 [facility] Comment on above: Performed By: #### 2 685978 ####HEATHER Youngo1025 [place] [address] UA Urobilinogen 4.0 mg/dL Abnormal [facility] Comment on above: Performed By: #### 2 272467 ####HEATHER Youngo1025 [place] [address] UA WBC >50 Abnormal 0-5 [facility] Comment on above: Performed By: #### 2 614443 ####HEATHER Youngo10[address] [place] [id number] Urobilinogen Test strip Qn (U) Negative Normal Negative [facility] Comment on above: Performed By: #### 2 760277 ####HEATHER Youngo1025 [place] [address] eGFRon 08-10-2017 eGFR AA >60 Normal [facility] Comment on above: Order Comment: Order added by Discern Expert. Performed By: #### 2 458486 ####HEATHER Youngo1025 [place] [address] GFR/1.73 sq M predicted among non-blacks MDRD vol rate/area (S/P/Bld) mL/min/{1.73_m2} Normal [facility] Comment on above: Order Comment: Order added by Discern Expert. Performed By: #### 2 352180 ####HEATHER Youngo1025 [place] [address] Auto Diffon 08-06-2017 Basophils Auto #/vol (Bld) 0.0 E3/mcL Normal 0.0-0.2 [facility] Comment on above: Order Comment: Order Added by Discern Expert. Performed By: #### 2 968517 ####HEATHER Youngo1025 [place] [address] Basophils/100 WBC Auto (Bld) 0.3 % Normal 0.0-2.0 [facility] Comment on above: Order Comment: Order Added by Discern Expert. Performed By: #### 2 897842 ####HEATHER RogersYgeWqfe2613 [place] [address] Eos Absolute 0.0 E3/mcL Normal 0.0-0.7 [facility] Comment on above: Order Comment: Order Added by Discern Expert. Performed By: #### 2 865317 ####HEATHER RogersKceXowg0412 [place] [address] Eosinophils/100 WBC Auto (Bld) 0.4 % Normal 0.0-11.0 [facility] Comment on above: Order Comment: Order Added by Discern Expert. Performed By: #### 2 944487 ####HEATHER UpnNjmp7746 [place] [address] Lymphocytes Auto #/vol (Bld) 1.1 E3/mcL Low 1.2-3.4 [facility] Comment on above: Order Comment: Order Added by Discern Expert. Performed By: #### 2 626609 ####HEATHER RogersChsQbyd9958 [place] [address] Lymphocytes/100 WBC Auto (Bld) 10.1 % Low 20.0-55.0 [facility] Comment on above: Order Comment: Order Added by Discern Expert. Performed By: #### 2 289056 ####HEATHER PaoZmoi6309 [place] [address] Davison Absolute 0.6 E3/mcL Normal 0.0-0.7 [facility] Comment on above: Order Comment: Order Added by Discern Expert. Performed By: #### 2 255058 ####HEATHER EldXqge4468 [place] [address] Monocytes/100 WBC Auto (Bld) 5.0 % Normal 0.0-10.0 [facility] Comment on above: Order Comment: Order Added by Discern Expert. Performed By: #### 2 230562 ####HEATHER RogersQsiMmyf1695 [place] [address] Neutro Absolute 9.4 E3/mcL High 1.4-6.5 [facility] Comment on above: Order Comment: Order Added by Discern Expert. Performed By: #### 2 660724 ####HEATHER Youngo1025 [place] [address] Neutro Auto 84.2 % High 37.0-75.0 [facility] Comment on above: Order Comment: Order Added by Discern Expert. Performed By: #### 2 180938 ####HEATHER Youngo1025 [place] [address] BMPon 08-06-2017 Creatinine mass conc 1.4 mg/dL High 0.6-1.3 [facility] Comment on above: Performed By: #### 2 676198 ####HEATHER Youngo1025 [place] [address] Urea nitrogen mass conc 18 mg/dL Normal 7-18 [facility] Comment on above: Performed By: #### 2 090864 ####HEATHER Youngo1025 [place] [address] Urea nitrogen/Creatinine mass ratio 12.9 ratio Normal 5.4-30.0 [facility] Comment on above: Performed By: #### 2 831943 ####HEATHER Youngo1025 [place] [address] Calcium mass conc 8.9 mg/dL Normal 8.4-10.2 [facility] Comment on above: Performed By: #### 2 453934 ####HEATHER Youngo1025 [place] [address] Chloride molar conc 106 mmol/L Normal 98-107 [facility] Comment on above: Performed By: #### 2 409745 ####HEATHER Youngo1025 [place] [address] CO2 molar conc 24.6 mmol/L Normal 24.0-30.0 [facility] Comment on above: Performed By: #### 2 875976 ####HEATHER RogersIdbNxua8692 [place] [address] Glucose mass conc 126 mg/dL High 70-99 [facility] Comment on above: Performed By: #### 2 021555 ####HEATHER RogersZonQbuo6180 [place] [address] Potassium molar conc 3.7 mmol/L Normal 3.5-5.1 [facility] Comment on above: Performed By: #### 2 165677 ####HEATHER RogersHaiDjzd3886 [place] [address] Sodium molar conc 138 mmol/L Normal 136-145 [facility] Comment on above: Performed By: #### 2 706918 ####HEATHER Youngo1025 [place] [address] CBC w/ Auto Diffon 7 Erythrocyte distribution width Auto Ratio (RBC) 13.9 % Normal 11.5-14.5 [facility] Comment on above: Performed By: #### 2 327345 ####HEATHER RogersJtfRurn6342 [place] [address] Hematocrit Auto Volume Fraction (Bld) 44.1 % Normal 42.0-52.0 [facility] Comment on above: Performed By: #### 2 476349 ####HEATHER Youngo1025 [place] [address] Hemoglobin mass conc (Bld) 15.0 g/dL Normal 13.5-18.0 [facility] Comment on above: Performed By: #### 2 676792 ####HEATHER RogersEbhTmhw1814 [place] [address] MCH Auto Entitic mass (RBC) 31.7 pg High 27.0-31.0 [facility] Comment on above: Performed By: #### 2 389617 ####HEATHER RogersWhhJpmz9311 [place] [address] MCHC Auto mass conc (RBC) 34.0 g/dL Normal 33.0-37.0 [facility] Comment on above: Performed By: #### 2 356978 ####HEATHER RogersLswRtmk6887 [place] [address] MCV Auto Entitic volume (RBC) 93.1 fL Normal 78.0-100.0 [facility] Comment on above: Performed By: #### 2 114757 ####HEATHER RogersVanMvxy8999 [place] [address] Platelet mean volume Auto Entitic volume (Bld) 7.1 fL Low 7.4-11.0 [facility] Comment on above: Performed By: #### 2 669760 ####HEATHER WpePyxm4058 [place] [address] Platelets Auto #/vol (Bld) 180 E3/mcL Normal 130-400 [facility] Comment on above: Performed By: #### 2 794569 ####HEATHER CdrOafa8303 [place] [address] RBC Auto #/vol (Bld) 4.73 E6/mcL Normal 3.90-6.10 [facility] Comment on above: Performed By: #### 2 426997 ####HEATHER CscBhdd1995 [place] [address] WBC Auto #/vol (Bld) 11.2 E3/mcL High 3.6-11.0 [facility] Comment on above: Performed By: #### 2 567924 ####HEATHER VkmLirq6283 [place] [address] UA Completeon 08-06-2017 Color Nom (U) [place] Abnormal Yellow [facility] Comment on above: Performed By: #### 8 [id number] ####HEATHER Urinalysis Automated [address] [place] [address] Glucose mass conc (U) Negative Normal Negative [facility] Comment on above: Performed By: #### 8 1961596 ####HEATHER Urinalysis Automated Innrig[address] [place] [address] Ketones Ql (U) Trace Normal [facility] Comment on above: Performed By: #### 8 5253134 ####HEATHER Urinalysis Automated [address]kl[address] [place] [address] RBC Test strip #/vol (U) /uL Abnormal 0-3 [facility] Comment on above: Performed By: #### 8 [id number] ####HEATHER Urinalysis Automated Hbajcgbeog[address] [place] [address] UA Blood 3+ Normal Negative [facility] Comment on above: Result Comment: High concentration of Ascorbic Acid present in urine. This may cause False Negative Occ Blood. Review microscopic results and patient's clinical symptoms. Performed By: #### 8 [id number] ####HEATHER Urinalysis Automated Joqepdmixw8407 [place] [address] UA Ascorbic Acid 40 mg/dL High <=19 [facility] Comment on above: Performed By: #### 8 3594665 ####HEATHER Urinalysis Automated Ouvhuqgjwx4968 [place] [address] UA Clarity Cloudy Abnormal Clear [facility] Comment on above: Performed By: #### 8 2727412 ####HEATHER Urinalysis Automated Ijiqirjvcn0836 [place] [address] UA Leuk Est Negative Normal Negative [facility] Comment on above: Performed By: #### 8 6963052 ####HEATHER Urinalysis Automated Ljgfivkbmq6259 [place] [address] UA Mucous Trace Abnormal Trace [facility] Comment on above: Performed By: #### 8 3471497 ####HEATHER Urinalysis Automated [address] [place] [address] UA Nitrite Negative Normal Negative [facility] Comment on above: Performed By: #### 8 8307835 ####HEATHER Urinalysis Automated Zmqrxvscwe[address] [place] [address] UA pH 5.0 Normal 4.6-8.0 [facility] Comment on above: Performed By: #### 8 0257705 ####HEATHER Urinalysis Automated [address] [place] [address] UA Protein 2+ Abnormal Negative [facility] Comment on above: Performed By: #### 8 [id number] ####HEATHER Urinalysis Automated Vmjcvghdxs[address] [place] [address] UA Spec Grav 1.023 Normal 1.003-1.030 [facility] Comment on above: Performed By: #### 8 6892536 ####HEATHER Urinalysis Automated Bjvyaychmh3756 [place] [address] UA Squam Epithelial 0-5 Normal 0-5 [facility] Comment on above: Performed By: #### 8 6901019 ####HEATHER Urinalysis Automated [address]fl[address]kehb[address] [place] [address] UA Urobilinogen Negative Normal [facility] Comment on above: Performed By: #### 8 6809582 ####HEATHER Urinalysis Automated Qzgfmjbq[address] [place] [address] Urobilinogen Test strip Qn (U) Negative Normal Negative [facility] Comment on above: Performed By: #### 8 [id number] ####HEATHER Urinalysis Automated Faaostnymq7049 [place] [address] XR Abdomen APon 08-06-2017 XR Abdomen AP [...] MDigned (Electronic Signature): 08/06/2017 6:59 amSigned by: Figueroa Telles MD Technologist: SULLY [facility] eGFRon 08-06-2017 eGFR AA >60 [facility] Comment on above: Order Comment: Order added by Discern Expert. Performed By: #### 2 622168 ####HEATHER NzgQtuj4923 [place] [address] GFR/1.73 sq M predicted among non-blacks MDRD vol rate/area (S/P/Bld) 52 mL/min/1.73 m2 [facility] Comment on above: Order Comment: Order added by Cristina Expert. Performed By: #### 2 275875 ####HEATHER WwzGxvj0296 [place] [address] Auto Diffon 08-03-2017 Basophils Auto #/vol (Bld) 0.0 E3/mcL Normal 0.0-0.2 [facility] Comment on above: Order Comment: Order Added by Discern Expert. Performed By: #### 2 132370 ####HEATHER RogersGdbSjgi0615 [place] [address] Basophils/100 WBC Auto (Bld) 0.5 % Normal 0.0-2.0 [facility] Comment on above: Order Comment: Order Added by Discern Expert. Performed By: #### 2 654568 ####HEATHER RogersBacBrnc9746 [place] [address] Eos Absolute 0.1 E3/mcL Normal 0.0-0.7 [facility] Comment on above: Order Comment: Order Added by Discern Expert. Performed By: #### 2 306149 ####HEATHER VzeOiam3683 [place] [address] Eosinophils/100 WBC Auto (Bld) 1.2 % Normal 0.0-11.0 [facility] Comment on above: Order Comment: Order Added by Discern Expert. Performed By: #### 2 817644 ####HEATHER ThqWbaa2881 [place] [address] Lymphocytes Auto #/vol (Bld) 2.1 E3/mcL Normal 1.2-3.4 [facility] Comment on above: Order Comment: Order Added by Cristina Expert. Performed By: #### 2 224259 ####HEATHER GjsSpog2184 [place] [address] Lymphocytes/100 WBC Auto (Bld) 26.4 % Normal 20.0-55.0 [facility] Comment on above: Order Comment: Order Added by Cristina Expert. Performed By: #### 2 547678 ####HEATHER RogersCpiHpyu6908 [place] [address] [place] Absolute 0.5 E3/mcL Normal 0.0-0.7 [facility] Comment on above: Order Comment: Order Added by Cristina Expert. Performed By: #### 2 671271 ####HEATHER GueGvhf8729 [place] [address] Monocytes/100 WBC Auto (Bld) 6.0 % Normal 0.0-10.0 [facility] Comment on above: Order Comment: Order Added by Discern Expert. Performed By: #### 2 015514 ####HEATHER Youngo1025 [place] [address] Neutro Absolute 5.4 E3/mcL Normal 1.4-6.5 [facility] Comment on above: Order Comment: Order Added by Discern Expert. Performed By: #### 2 413921 ####HEATHER Youngo1025 [place] [address] Neutro Auto 65.9 % Normal 37.0-75.0 [facility] Comment on above: Order Comment: Order Added by Discern Expert. Performed By: #### 2 379747 ####HEATHER Youngo1025 [place] [address] BMPon 08-03-2017 Creatinine mass conc 1.0 mg/dL Normal 0.6-1.3 [facility] Comment on above: Performed By: #### 2 912747 ####HEATHER Dexter1025 [place] [address] Urea nitrogen mass conc 13 mg/dL Normal 7-18 [facility] Comment on above: Performed By: #### 2 245022 ####HEATHER RogersBomVbfm0936 [place] [address] Urea nitrogen/Creatinine mass ratio 13.0 ratio Normal 5.4-30.0 [facility] Comment on above: Performed By: #### 2 430025 ####HEATHER MntPocl9222 [place] [address] Calcium mass conc 9.0 mg/dL Normal 8.4-10.2 [facility] Comment on above: Performed By: #### 2 [id number] ####HEATHERHarmony RogersPbcKjdh6332 [place] [address] Chloride molar conc 111 mmol/L High 98-107 [facility] Comment on above: Performed By: #### 2 [id number] ####HEATHER OgmHuzh8457 [place] [address] CO2 molar conc 24.2 mmol/L Normal 24.0-30.0 [facility] Comment on above: Performed By: #### 2 [id number] ####HEATHER RogersVxaZqjq6189 [place] [address] Glucose mass conc 102 mg/dL High 70-99 [facility] Comment on above: Performed By: #### 2 [id number] ####HEATHER RogersQzrRrdw7428 [place] [address] Potassium molar conc 3.8 mmol/L Normal 3.5-5.1 [facility] Comment on above: Performed By: #### 2 [id number] ####HEATHER Dexter1025 [place] [address] Sodium molar conc 142 mmol/L Normal 136-145 [facility] Comment on above: Performed By: #### 2 [id number] ####HEATHER RogersDttXyvu2940 [place] [address] CBC w/ Auto Diffon 7 Erythrocyte distribution width Auto Ratio (RBC) 14.2 % Normal 11.5-14.5 [facility] Comment on above: Performed By: #### 2 [id number] ####HEATHER Youngo1025 [place] [address] Hematocrit Auto Volume Fraction (Bld) 49.1 % Normal 42.0-52.0 [facility] Comment on above: Performed By: #### 2 [id number] ####HEATHER RogersHshKooc0572 [place] [address] Hemoglobin mass conc (Bld) 16.6 g/dL Normal 13.5-18.0 [facility] Comment on above: Performed By: #### 2 [id number] ####HEATHER RogersIbyFrld0024 [place] [address] MCH Auto Entitic mass (RBC) 31.8 pg High 27.0-31.0 [facility] Comment on above: Performed By: #### 2 [id number] ####HEATHER RogersRuxFjsg3745 [place] [address] MCHC Auto mass conc (RBC) 33.8 g/dL Normal 33.0-37.0 [facility] Comment on above: Performed By: #### 2 [id number] ####HEATHER RogersJqxVihe5185 [place] [address] MCV Auto Entitic volume (RBC) 94.0 fL Normal 78.0-100.0 [facility] Comment on above: Performed By: #### 2 [id number] ####HEATHER Youngo1025 [place] [address] Platelet mean volume Auto Entitic volume (Bld) 6.9 fL Low 7.4-11.0 [facility] Comment on above: Performed By: #### 2 [id number] ####HEATHER RogersIelBdmu9428 [place] [address] Platelets Auto #/vol (Bld) 191 E3/mcL Normal 130-400 [facility] Comment on above: Performed By: #### 2 [id number] ####HEATHER RogersBcuQvqu3100 [place] [address] RBC Auto #/vol (Bld) 5.23 E6/mcL Normal 3.90-6.10 [facility] Comment on above: Performed By: #### 2 [id number] ####HEATHER RogersIicUezx1071 [place] [address] WBC Auto #/vol (Bld) 8.1 E3/mcL Normal 3.6-11.0 [facility] Comment on above: Performed By: #### 2 [id number] ####HEATHER RogersJrxPqnv8948 [place] [address] CT Abdomen/Pelvis w/o Contra ston 08-03-2017 CT [...] Dictated: 08/03/2017 1:35 pm Glenis SKY, Blair JSigned (Electronic Signature): 08/03/2017 1:35 pmSigned by: Blair Galvin MD Technologist: TRSergio Normal [facility] UA Completeon 08-03-2017 Color Nom (U) [place] Abnormal Yellow [facility] Comment on above: Performed By: #### 8 [id number] ####HEATHER Urinalysis Automated Ypxcphuzwn7332 [place] [address] Glucose mass conc (U) Negative Normal Negative [facility] Comment on above: Performed By: #### 8 [id number] ####HEATHER Urinalysis Automated Wnawdsrxaz72[address] [place] [id number] Ketones Ql (U) Trace Normal [facility] Comment on above: Performed By: #### 8 [id number] ####HEATHER Urinalysis Automated Vbbnwamdfq37[address] [place] [id number] RBC Test strip #/vol (U) /uL Abnormal 0-3 [facility] Comment on above: Performed By: #### 8 [id number] ####HEATHER Urinalysis Automated K[address]ckz53[address] [place] [id number] UA Blood 3+ Normal Negative [facility] Comment on above: Result Comment: High concentration of Ascorbic Acid present in urine. This may cause False Negative Occ Blood. Review microscopic results and patient's clinical symptoms. Performed By: #### 8 [id number] ####HEATHER Urinalysis Automated [address]hlp[address] [place] [address] UA Ascorbic Acid 40 mg/dL High <=19 [facility] Comment on above: Performed By: #### 8 [id number] ####HEATHER Urinalysis Automated Rhgcsuwbbx5598 [place] [address] UA Clarity Cloudy Abnormal Clear [facility] Comment on above: Performed By: #### 8 [id number] ####HEATHER Urinalysis Automated [address] [place] [address] UA Leuk Est Trace Normal Negative [facility] Comment on above: Performed By: #### 8 [id number] ####HEATHER Urinalysis Automated [address] [place] [address] UA Mucous Many Abnormal Trace [facility] Comment on above: Performed By: #### 8 [id number] ####HEATHER Urinalysis Automated [address] [place] [address] UA Nitrite Negative Normal Negative [facility] Comment on above: Performed By: #### 8 [id number] ####HEATHER Urinalysis Automated [address] [place] [address] UA pH 5.0 Normal 4.6-8.0 [facility] Comment on above: Performed By: #### 8 [id number] ####HEATHER Urinalysis Automated [address] [place] [address] UA Protein 2+ Abnormal Negative [facility] Comment on above: Performed By: #### 8 [id number] ####HEATHER Urinalysis Automated [address] [place] [address] UA Spec Grav 1.019 Normal 1.003-1.030 [facility] Comment on above: Performed By: #### 8 [id number] ####HEATHER Urinalysis Automated [address] [place] [address] UA Urobilinogen Negative Normal [facility] Comment on above: Performed By: #### 8 [id number] ####HEATHER Urinalysis Automated Pvdeairdrd4598 [place] [address] UA WBC >50 Abnormal 0-5 [facility] Comment on above: Performed By: #### 8 [id number] ####HEATHER Urinalysis Automated Evzxcchuil8551 [place] [address] Urobilinogen Test strip Qn (U) Negative Normal Negative [facility] Comment on above: Performed By: #### 8 [id number] ####HEATHER Urinalysis Automated Tenmrhoqfq1734 [place] [address] eGFRon 08-03-2017 eGFR AA >60 Normal [facility] Comment on above: Order Comment: Order added by Discern Expert. Performed By: #### 1 [id number] ####HEATHER QfaEcer8538 [place] [address] GFR/1.73 sq M predicted among non-blacks MDRD vol rate/area (S/P/Bld) mL/min/{1.73_m2} Normal [facility] Comment on above: Order Comment: Order added by Discern Expert. Performed By: #### 1 [id number] ####HEATHER YkdRudk5769 [place] [address] TSHon 05-19-2017 Thyrotropin Qn 0.86 mIU/m Normal 0.30-5.60 [facility] Comment on above: Performed By: #### 2 [id number] ####HEATHER RogersNavVtte1734 [place] [address] Vital Signs Date Time Vital Sign Value Performing Clinician Facility 05-06-2025 11:31-0400 Body temperature 98 [degF] Dr. Jarad Rey MD Work Phone: [facility] 05-06-2025 11:31-0400 Diastolic blood pressure 73 mm[Hg] Dr. Jarad Rey MD Work Phone: [facility] 05-06-2025 11:31-0400 Heart rate 81 /min Dr. Jarad Rey MD Work Phone: [facility] 05-06-2025 11:31-0400 Respiratory rate 18 /min Dr. Jarad Rey MD Work Phone: [facility] 05-06-2025 11:31-0400 SaO2% (BldA) [Mass fraction] 99 % Dr. Jarad eRy MD Work Phone: [facility] 05-06-2025 11:31-0400 Systolic blood pressure 137 mm[Hg] Dr. Jarad Rey MD Work Phone: [facility] 05-05-2025 04:28-0400 Body height 175.[address] Jarad Rey MD Work Phone: [facility] 05-05-2025 04:28-0400 Body mass index (BMI) [Ratio] 36 kg/m2 Dr. Jarad Rey MD Work Phone: [facility] 05-05-2025 04:28-0400 Body weight 110.[address] Jarad Rey MD Work Phone: [facility] 05-05-2025 01:59-0400 Body temperature 96.91 [degF] Elicia Batistaersen DO Work Phone: [facility] 05-05-2025 01:59-0400 Diastolic blood pressure 75 mm[Hg] Elicia Batistaersen DO Work Phone: [facility] 05-05-2025 01:59-0400 Heart rate 67 /min Elicia Batistaersen DO Work Phone: [facility] 05-05-2025 01:59-0400 Respiratory rate 16 /min Elicia Batistaersen DO Work Phone: [facility] 05-05-2025 01:59-0400 Systolic blood pressure 157 mm[Hg] Elicia Batistaersen DO Work Phone: [facility] 05-05-2025 01:58-0400 SaO2% (BldA) [Mass fraction] 96 % Elicia Love DO Work Phone: [facility] 05-04-2025 21:54-0400 Body height 175.3 cm Eilcia Love DO Work Phone: [facility] 05-04-2025 21:54-0400 Body mass index (BMI) [Ratio] 35.44 kg/m2 Elicia Love DO Work Phone: [facility] 05-04-2025 21:54-0400 Body weight 108.86 kg Elicia Love DO Work Phone: [facility] 04-25-2025 17:15-0400 Body temperature 97.3 [degF] Dr. Jarad Rey MD Work Phone: [facility] 04-25-2025 17:15-0400 Diastolic blood pressure 85 mm[Hg] Dr. Jarad Rey MD Work Phone: [facility] 04-25-2025 17:15-0400 Heart rate 56 /min Dr. Jarad Rey MD Work Phone: [facility] 04-25-2025 17:15-0400 Respiratory rate 16 /min Dr. Jarad Rey MD Work Phone: [facility] 04-25-2025 17:15-0400 SaO2% (BldA) [Mass fraction] 100 % Dr. Jarad Rey MD Work Phone: [facility] 04-25-2025 17:15-0400 Systolic blood pressure 152 mm[Hg] Dr. Jarad Rey MD Work Phone: [facility] 04-25-2025 12:03-0400 Body height 175.[address] Jarad Rey MD Work Phone: [facility] 04-25-2025 12:03-0400 Body mass index (BMI) [Ratio] 36.1 kg/m2 Dr. Jarad Rey MD Work Phone: [facility] 04-25-2025 12:03-0400 Body weight [address] Jarad Rey MD Work Phone: [facility] 03-25-2025 22:58-0400 Diastolic blood pressure 99 mm[Hg] Zak Alvarez MD Work Phone: [facility] 03-25-2025 22:58-0400 Heart rate 58 /min Zak Alvarez MD Work Phone: [facility] 03-25-2025 22:58-0400 Respiratory rate 16 /min Zak Alvarez MD Work Phone: [facility] 03-25-2025 22:58-0400 SaO2% (BldA) [Mass fraction] 96 % Zak Alvarez MD Work Phone: [facility] 03-25-2025 22:58-0400 Systolic blood pressure 155 mm[Hg] Zak Alvarez MD Work Phone: [facility] 03-25-2025 21:41-0400 Body height 175.3 cm Zak Alvarez MD Work Phone: [facility] 03-25-2025 21:41-0400 Body mass index (BMI) [Ratio] 36.18 kg/m2 Zak Alvarez MD Work Phone: [facility] 03-25-2025 21:41-0400 Body temperature 97.59 [degF] Zak Alvarez MD Work Phone: [facility] 03-25-2025 21:41-0400 Body weight 111.13 kg Zak Alvarez MD Work Phone: [facility] 09-13-2024 10:56-0500 Body mass index (BMI) [Ratio] 35.29 kg/m2 Isabela Bazan MD Work Phone: [facility] 09-13-2024 10:56-0500 Body weight 108.41 kg Isabela Bazan MD Work Phone: [facility] 09-13-2024 10:56-0500 Diastolic blood pressure 90 mm[Hg] Isabela Bazan MD Work Phone: [facility] 09-13-2024 10:56-0500 Heart rate 61 /min Isabela Bazan MD Work Phone: [facility] 09-13-2024 10:56-0500 Systolic blood pressure 150 mm[Hg] Isabela Bazan MD Work Phone: [facility] 02-23-2024 11:08-0400 Body mass index (BMI) [Ratio] 34.11 kg/m2 Isabela Bazan MD Work Phone: [facility] 02-23-2024 11:08-0400 Body weight 104.78 kg Isabela Bazan MD Work Phone: [facility] 02-23-2024 11:08-0400 Respiratory rate 16 /min Isabela Bazan MD Work Phone: [facility] 11-15-2023 15:27-0400 Body mass index (BMI) [Ratio] 33.97 kg/m2 Isabela Bazan MD Work Phone: [facility] 11-15-2023 15:27-0400 Body weight 104.33 kg Isabela Bazan MD Work Phone: [facility] 11-15-2023 15:27-0400 Respiratory rate 16 /min Isabela Bazan MD Work Phone: [facility] 11-09-2023 21:02-0400 Diastolic blood pressure 71 mm[Hg] Jarad Rey MD Work Phone: [facility] 11-09-2023 21:02-0400 Heart rate 74 /min Jarad Rey MD Work Phone: [facility] 11-09-2023 21:02-0400 Respiratory rate 16 /min Jarad Rey MD Work Phone: [facility] 11-09-2023 21:02-0400 SaO2% (BldA) [Mass fraction] 95 % Jarad Rey MD Work Phone: [facility] 11-09-2023 21:02-0400 Systolic blood pressure 121 mm[Hg] Jarad Rey MD Work Phone: [facility] 11-09-2023 18:33-0400 Body height 175.3 cm Jarad Rey MD Work Phone: [facility] 11-09-2023 18:33-0400 Body mass index (BMI) [Ratio] 33.97 kg/m2 Jarad Rey MD Work Phone: [facility] 11-09-2023 18:33-0400 Body temperature 98.29 [degF] Jarad Rey MD Work Phone: [facility] 11-09-2023 18:33-0400 Body weight 104.33 kg Jarad Rey MD Work Phone: [facility] 11-01-2023 10:15-0500 Body weight 107.05 kg Isabela Bazan MD Work Phone: [facility] 10-07-2023 10:21-0500 Body weight 107.05 kg Isabela Bazan MD Work Phone: [facility] 10-07-2023 10:21-0500 Respiratory rate 16 /min Isabela Bazan MD Work Phone: [facility] 02-17-2021 20:57-0400 Body height 175.3 cm Oscar Dickens MD Work Phone: [employer] Work Phone: 02-17-2021 20:57-0400 Body mass index (BMI) [Ratio] 34.7 kg/m2 Oscar Dickens MD Work Phone: [employer] Work Phone: 02-17-2021 20:57-0400 Body temperature 98.8 [degF] Oscar Dickens MD Work Phone: [employer] Work Phone: 02-17-2021 20:57-0400 Body weight 106.59 kg Oscar Dickens MD Work Phone: [employer] Work Phone: 02-17-2021 20:57-0400 Diastolic blood pressure 82 mm[Hg] Oscar Dickens MD Work Phone: [employer] Work Phone: 02-17-2021 20:57-0400 Heart rate 63 /min Oscar Dickens MD Work Phone: [employer] Work Phone: 02-17-2021 20:57-0400 Respiratory rate 16 /min Oscar Dickens MD Work Phone: [employer] Work Phone: 02-17-2021 20:57-0400 SaO2% (BldA) [Mass fraction] 96 % Oscar Dickens MD Work Phone: [employer] Work Phone: 02-17-2021 20:57-0400 Systolic blood pressure 145 mm[Hg] Oscar Dickens MD Work Phone: [employer] Work Phone: 09-14-2019 09:55-0500 Diastolic blood pressure 63 mm[Hg] Familia Oliva MD Work Phone: [employer] Work Phone: 09-14-2019 09:55-0500 Heart rate 65 /min Familia Oliva MD Work Phone: [employer] Work Phone: 09-14-2019 09:55-0500 Respiratory rate 16 /min Familia Oliva MD Work Phone: [employer] Work Phone: 09-14-2019 09:55-0500 SaO2% (BldA) [Mass fraction] 95 % Familia Oliva MD Work Phone: [employer] Work Phone: 09-14-2019 09:55-0500 Systolic blood pressure 135 mm[Hg] Familia Oliva MD Work Phone: [employer] Work Phone: 09-14-2019 09:30-0500 Body temperature 97.59 [degF] Familia Oliva MD Work Phone: [employer] Work Phone: 09-14-2019 07:16-0500 Body height 175.3 cm Familia Oliva MD Work Phone: [employer] Work Phone: 09-14-2019 07:16-0500 Body mass index (BMI) [Ratio] 34.7 kg/m2 Familia Oliva MD Work Phone: [employer] Work Phone: 09-14-2019 07:16-0500 Body weight 106.59 kg Familia Oliva MD Work Phone: [employer] Work Phone: 05-19-2017 14:04-0400 BMI (Body Mass Index) 32.93 kg/m2 Trace Barreto Sosh Work Phone: 05-19-2017 14:04-0400 BP Diastolic 72 mm[Hg] Trace Barreto [facility] Work Phone: 05-19-2017 14:04-0400 BP Systolic 125 mm[Hg] Trace Hugginshta [facility] Work Phone: 05-19-2017 14:04-0400 Height 175.3 cm Trace Barreto [facility] Work Phone: 05-19-2017 14:04-0400 Pulse (Heart Rate) 49 /min Trace Barreto [facility] Work Phone: 05-19-2017 14:04-0400 Pulse Oximetry 96 % Trace Barreto [facility] Work Phone: 05-19-2017 14:04-0400 Weight 101.15 kg Trace Barreto [facility] Work Phone: Encounters Encounter Date Encounter Type Care Provider Facility Start: 05-05-2025 End: 05-06-2025 ambulatory Harjit Lam Facility:[facility] Start: 05-05-2025 End: 05-06-2025 Evaluation and management of inpatient Dr. Harjit Lam MD -[facility] 3 Work Phone: Start: 05-05-2025 End: 05-06-[address] Jarad Rey MD Work Phone: -[facility] 3 Start: 05-04-2025 End: 05-05-2025 Emergency department patient visit Elicia Love DO Work Phone: [facility] Comment on above: Ureteral calculus (P rimary Dx) Start: 04-25-2025 End: 04-25-2025 Admission to same day surgery center Dr. Harjit Lam MD -[facility] Start: 04-25-2025 End: 04-25-[address] Jarad Rey MD Work Phone: -[facility] Start: 04-10-2025 End: 04-10-[address] Jarad Rey MD Work Phone: -Radiology [facility] Start: 04-10-2025 End: 04-10-2025 Patient encounter procedure Melba Barr -Radiology [facility] Work Phone: Start: 04-09-2025 End: 04-11-2025 ambulatory KAYLYNNFABIEN ASHTON [facility] Start: 04-09-2025 End: 04-11-2025 Subsequent hospital visit by physician Kaylynn Ashton MD Work Phone: [facility] Comment on above: Gallbladder polyp Start: 03-25-2025 End: 03-26-2025 Emergency department patient visit Zak Alvarez MD Work Phone: [facility] Comment on above: Hemorrhagic cystitis (Primary Dx) Start: 09-13-2024 End: 09-13-2024 Office outpatient visit 25 minutes Isabela Bazan MD Work Phone: [facility] Comment on above: History of kidney st ones; Benign prostatic hyperplasia with lower urinary tract symptoms, symptom details unspecified; Nocturia Start: 09-13-2024 End: 09-13-2024 Subsequent hospital visit by physician German Acevedo [facility] Comment on above: History of kidney st ones Start: 09-13-2024 End: 09-13-2024 ambulatory [facility] Start: 06-26-2024 End: 06-26-2024 [facility] Start: 06-26-2024 End: 06-26-2024 Encounter for general adult medical examination without abnormal findings [facility] Start: 06-26-2024 End: 06-26-2024 Patient encounter procedure Jarad Rey MD [facility] Start: 06-26-2024 End: 06-26-2024 Subsequent hospital visit by physician Jarad Rey MD Work Phone: [facility] Comment on above: Encounter for annual wellness exam in Medicare patient Start: 02-23-2024 End: 02-23-2024 Office outpatient visit 25 minutes Isabela Bazan MD Work Phone: [facility] Comment on above: Benign prostatic hyp erplasia with lower urinary tract symptoms, symptom details unspecified (Primary Dx); History of kidney stones; Nocturia Start: 02-23-2024 End: 02-23-2024 Subsequent hospital visit by physician German Acevedo [facility] Comment on above: History of kidney st ones Start: 02-23-2024 End: 02-23-2024 ambulatory [facility] Start: 12-16-2023 End: 12-16-2023 Office outpatient visit 25 minutes Isabela Bazan MD Work Phone: [facility] Comment on above: History of kidney st ones; Nocturia; Benign prostatic hyperplasia with lower urinary tract symptoms, symptom details unspecified Start: 12-16-2023 End: 12-16-2023 ambulatory [facility] Start: 11-15-2023 End: 11-15-2023 Office outpatient visit 25 minutes Isabela Bazan MD Work Phone: [facility] Comment on above: Benign prostatic hyp erplasia with lower urinary tract symptoms, symptom details unspecified; Dysuria; History of kidney stones; Nocturia; Retention of urine Start: 11-15-2023 End: 11-15-2023 ambulatory [facility] Start: 11-10-2023 End: 11-10-2023 Office outpatient visit 25 minutes Isabela Bazan MD Work Phone: [facility] Comment on above: Nocturia; Dysuria; Benign prostatic hyperplasia with lower urinary tract symptoms, symptom details unspecified Start: 11-10-2023 End: 11-10-2023 ambulatory [facility] Start: 11-09-2023 End: 11-09-2023 Emergency department patient visit Jarad Rey MD Work Phone: [facility] Comment on above: Urinary retention (P rimary Dx); Urinary tract infection with hematuria, site unspecified Start: 11-08-2023 End: 11-09-2023 ambulatory JARAD REY [facility] Start: 11-08-2023 End: 11-08-2023 Phys/qhp telephone evaluation 11-20 min Isabela Bazan MD Work Phone: [facility] Comment on above: Nocturia; Benign prostatic hyperplasia with lower urinary tract symptoms, symptom details unspecified; History of kidney stones; Dysuria Start: 11-08-2023 End: 11-08-2023 ambulatory [facility] Start: 11-01-2023 End: 11-01-2023 Patient encounter procedure Isabela Bazan MD Work Phone: [facility] Comment on above: Hematuria, unspecifi ed type (Primary Dx) Start: 11-01-2023 End: 11-01-2023 ambulatory [facility] Start: 10-07-2023 End: 10-08-2023 ambulatory [facility] Start: 10-07-2023 End: 10-07-2023 Subsequent hospital visit by physician German Hdez X-[facility] Comment on above: History of kidney st ones Start: 10-07-2023 End: 10-07-2023 Office outpatient new 45 minutes Isabela Bazan MD Work Phone: [facility] Comment on above: Benign prostatic hyp erplasia with lower urinary tract symptoms, symptom details unspecified; Nocturia; History of kidney stones Start: 10-07-2023 End: 10-07-2023 ambulatory ISABELA BAZAN [facility] Start: 08-17-2023 End: 08-17-2023 ambulatory [facility] Start: 12-29-2022 End: 01-02-2023 ambulatory [facility] Start: 06-15-2022 End: 06-15-2022 Subsequent hospital visit by physician Jarad Rey MD Work Phone: [facility] Start: 04-02-2022 End: 04-04-2022 Subsequent hospital visit by physician Serrano X-Ray Room 1 [facility] Comment on above: SOB (shortness of br eath) Start: 04-02-2022 End: 04-04-2022 Subsequent hospital visit by physician Jarad Rey MD Work Phone: [facility] Comment on above: SOB (shortness of br eath) Start: 01-05-2022 Patient encounter procedure Jarad Rey Work Phone: [facility] Work Phone: Start: 07-03-2021 End: 07-03-2021 Subsequent hospital visit by physician Jarad Rey MD Work Phone: [facility] Comment on above: Multiple thyroid nod ules Start: 06-12-2021 End: 06-12-2021 Patient encounter procedure Jaard Rey MD Work Phone: [facility] Start: [...] physician Adina Nuc Med Injection Room 1 [facility] Comment on above: THUMRAN (dyspnea on exer tion) Start: 02-17-2021 End: 02-17-2021 Emergency department patient visit Oscar Dickens MD Work Phone: [facility] ED Comment on above: Right hand pain (Sybil marilyn Dx) Start: 06-10-2020 End: 06-10-2020 Subsequent hospital visit by physician Jarad [facility] Comment on above: Prostate cancer scre ening; Annual physical exam Start: 09-14-2019 End: 09-14-2019 Subsequent hospital visit by physician Familia Oliva MD Work Phone: [facility] Start: 05-15-2019 End: 05-15-2019 Subsequent hospital visit by physician Noel [facility] Comment on above: Annual physical exam Start: 05-08-2019 End: 05-08-2019 Subsequent hospital visit by physician Jevon Ekg Rm 1 EKG Comment on above: Arrived Start: 05-08-2019 End: 05-08-2019 Subsequent hospital visit by physician Noel Ekg Holter Sched [facility] Cardiopulmonary Department Comment on above: PVC (premature ventr icular contraction) Start: 05-24-2018 End: 05-24-2018 Patient encounter ESA CASTAÑEDA Facility:[id number] Start: 05-04-2018 Patient encounter Esa Castañeda Fac ility:[facility] Start: 05-04-2018 Patient encounter Esa Maddy Fac ility:[facility] Start: 04-26-2018 Patient encounter JUSTUS lopez:[facility] Start: 04-26-2018 End: 04-26-2018 Patient encounter Sarather Beaulieu Facility:[facility] Start: 01-05-2018 End: 01-06-2018 Patient encounter Isabela Bazan Facility[facility] Start: 12-09-2017 End: 12-10-2017 Patient encounter Eneidanaye Cevallosd Facility:[facility] Start: 10-26-2017 End: 10-26-2017 Patient encounter Sarathtoo Brittnee Facility:[facility] Start: 10-25-2017 End: 10-26-2017 Patient encounter Eneidanaye Cevallosd Facility:[facility] Start: 10-15-2017 Patient encounter ENEIDANAYE BRITTNEE Ruth acility:[facility] Start: 10-06-2017 End: 10-07-2017 Patient encounter Isabela [facility]azan [facility] Start: 09-28-2017 End: 09-28-2017 Patient encounter Isabela Briscoe Bazan Facility:[facility] Start: 09-10-2017 End: 09-11-2017 Patient encounter [facility] Start: 08-20-2017 End: 08-20-2017 Patient encounter Eneidanaye Cevallosd Facility:[facility] Start: 08-19-2017 End: 08-20-2017 Patient encounter Isabela Briscoe Bazan Facility:[facility] Start: 08-11-2017 End: 08-12-2017 Patient encounter Isabela Briscoe Bazan Facility:[facility] Start: 08-10-2017 End: 08-10-2017 Emergency department patient visit Sarathtoo Brittnee Facility:[facility] Start: 08-06-2017 End: 08-06-2017 Patient encounter Eneidanaye Brittnee Facility:[facility] Start: 08-03-2017 End: 08-03-2017 Emergency department patient visit Sarathtoo Brittnee Facility:[facility] Start: 06-28-2017 Ambulatory [facility] Ambulatory Start: 05-26-2017 Ambulatory [facility] Amb[facility] Start: 05-19-2017 End: 05-25-2017 Ambulatory [facility] Ambulato ry Start: 05-19-2017 Office outpatient visit 25 minutes [facility] Work Phone: [facility] Start: 06-10-2015 Refill Pat velaarceliaalix SENIOR SOFTWARE MANAGER Work Phone: [facility] Comment on above: Medication Refill Start: 06-03-2015 Refill Briana Gan SENIOR SOFTWARE MANAGER Work Phone: [facility] Comment on above: Medication Refill Procedures Date Procedure Procedure Detail Performing Clinician Start: 05-06-[address] Jarad Rey MD Work Phone: Start: 05-05-2025 Fluoroscopic guidance Sergio Rey MD Work Phone: Start: 05-05-2025 Cystoscopy and retro grade pyelography Dr. Jarad Rey MD Work Phone: Start: 05-04-2025 Urinalysis microscop ic panel - [...] Dr. Jarad Rey MD Work Phone: Start: 04-25-2025 Plain X-ray abdomen Dr. Jarad Rey MD [...] cancer screen colonoscopy Colon cancer screen colonoscopy [employer] Work Phone: Start: 09-14-2029 [facility]ening [facility] Start: 08-17-2028 Screening for malign ant neoplasm of colon [facility] [employer] Start: 06-26-2027 [facility] screen [facility] Start: 06-11-2026 Diabetes screen Diabetes [facility] Start: 01-16-2026 End: 01-16-2026 Patient encounter procedure 01/16/2026 10:30 AM EDT Office Visit [facility] Pulmonology [address] [place] [address] George Hernandez MD [address] [place] [address] 9M FU [facility]ology Comment on above: 9M FU Start: 07-12-2025 End: 07-12-2025 Patient encounter procedure 07/12/2025 12:30 PM EST Office Visit [facility] Cardiology [address] [place] [address] Justin Espinoza MD [address] [place] [address] [facility] Cardiology Comment on above: 6 month follow up Start: 06-27-2025 Annual Wellness Visi t (Medicare) Annual Wellness Visit (Medicare) [facility] Start: 06-27-2025 End: 06-27-2025 Patient encounter procedure 06/27/2025 1:00 PM EDT Office Visit [facility] [address] [place] [address] Jarad Rey MD [address] [place] [address] awv [facility] Comment on above: awv Start: 06-26-2025 Lipid panel Lipids [facility] Start: 06-25-2025 Depression Screen Depression Screen [facility] Start: 05-06-2025 Measuring intake and output [facility] Start: 05-06-2025 Patient discharge [facility] Start: 05-05-2025 Application of intermittent pneumatic compression device [facility] Start: 05-05-2025 Measuring intake and output [facility] Start: 05-05-2025 Incentive spirometry [facility] Start: 05-05-2025 Ambulation therapy management [facility] Start: 05-05-2025 Assessment of risk o f venous thromboembolism [facility] Start: 05-05-2025 Deep breathing and coughing exercises [facility] Start: 05-05-2025 Following clinical pathway protocol [facility] Start: 05-05-2025 Provision of activit y privileges [facility] Start: 05-05-2025 Taking patient vital signs [facility] Start: 05-05-2025 Vital signs measurements [facility] Start: 05-05-2025 End: 05-05-2025 [facility] Start: 05-05-2025 Admission procedure [facility] Start: 05-05-2025 Following clinical pathway protocol [facility] Start: 04-30-2025 COVID-19 Vaccine ( season) COVID-19 Vaccine ( season) [facility] Start: 04-30-2025 Influenza vaccination Influenza Vacc ine (#1) [facility] Start: 04-26-2025 End: 04-26-2025 Patient encounter procedure 04/26/2025 10:30 AM EDT Office Visit [facility] General Surgery [address] [place] [address] Kaylynn Ashton MD [address] [place] [address] 1 yr [facility] Comment on above: 1 yr [facility] Start: 04-25-2025 Ambulation without limitation [facility] Start: 04-25-2025 Medical regimen orde rs management [facility] Start: 04-25-2025 Medication education [facility] Start: 04-25-2025 Patient discharge [facility] Start: 04-25-2025 Taking patient vital signs [facility] Start: 04-25-2025 [facility] Start: 04-25-2025 Anes transurethral w/urethrocystoscopy nos ANESTH BLADDER SURGERY [facility] Start: 04-25-2025 Cysto w/insert urete ral stent CYSTOSCOPY AND TREATMENT [facility] Start: 04-25-2025 Plain X-ray abdomen Abdomen Single V iew [facility] Start: 04-25-2025 XR Abdomen Single view [facility] Start: 03-30-2025 Influenza vaccination Flu vaccine (# 1) [facility] Start: 10-07-2024 Prostate specific an tigen measurement PSA Prostate Cancer Screening [facility] Start: 09-20-2024 End: 09-20-2024 Patient encounter procedure 09/20/2024 10:45 AM EST Office Visit [facility] [address] [place] [address] Isabela Bazan MD [address] [place] [address] [facility] Start: 09-13-2024 End: 09-13-2025 Basic metabolic 2000 panel - Serum or Plasma Basic Metabolic Panel Lab Routine Nocturia Expected: 09/13/2024 (Approximate), Expires: 09/13/2025 [facility] Work Phone: Comment on above: Expected: 09/13/2024 (Approximate), Expires: 09/13/2025 Start: 09-13-2024 End: 09-13-2025 Prostate specific Ag [Mass/volume] in Serum or Plasma Prostate Specific Antigen Lab Routine Nocturia Expected: 09/13/2024 (Approximate), Expires: 09/13/2025 [facility] Work Phone: Comment on above: Expected: 09/13/2024 (Approximate), Expires: 09/13/2025 Start: 09-13-2024 End: 09-13-2025 US Kidney - bilateral and Urinary bladder US renal complete Imaging Routine History of kidney stones Expected: 09/13/2024 (Approximate), Expires: 09/13/2025 [facility] Work Phone: Comment on above: Expected: 09/13/2024 (Approximate), Expires: 09/13/2025 Start: 07-30-2024 End: 02-22-2025 XR Abdomen Single view XR abdomen 1 view Imaging Routine History of kidney stones Expected: 07/30/2024, Expires: 02/22/2025 [facility] Work Phone: Comment on above: Expected: 07/30/2024 , Expires: 02/22/2025 Start: 07-05-2024 End: 07-05-2024 Patient encounter procedure 07/05/2024 10:00 AM EST Office Visit [facility] Pulmonology [address] [place] [address] George Hernandez MD [address] [place] [address] 9M F/U [facility]monology Comment on above: 9M F/U Start: 06-29-2024 End: 06-29-2024 Patient encounter procedure 06/29/2024 9:45 AM EDT Office Visit [facility] Cardiology [address] [place] [address] Justin Espinoza MD [address] [address] [address] [facility] Cardiology Comment on above: 6 month follow up Start: 06-12-2024 Diabetes screen Diabetes screen [facility] Start: 06-12-2024 End: 06-12-2024 Patient encounter procedure 06/12/2024 10:15 AM EDT Office Visit [facility] [address] [place] [address] Isabela Bazan MD [address] [place] [address] [facility] Start: 06-11-2024 Lipid panel Lipids [facility] Start: 05-15-2024 End: 05-15-2024 Patient encounter procedure 05/15/2024 10:00 AM EDT Office Visit [facility] [address] [place] [address] Isabela Bazan MD [address] [place] [address] [facility] Start: 04-30-2024 COVID-19 Vaccine ( season) COVID-19 Vaccine ( season) [facility] Start: 04-30-2024 COVID-19 Vaccine ( season) COVID-19 Vaccine ( season) [facility] Start: 04-30-2024 Influenza vaccination [facility] Start: 03-30-2024 Influenza vaccination Flu vaccine (# 1) [facility] Start: 02-23-2024 End: 02-23-2024 Patient encounter procedure 02/23/2024 10:45 AM EDT Office Visit [facility] [address] [place] [phone] Isabela Bazan MD [address] [place] [address] [facility] Start: 12-16-2023 End: 12-16-2023 Patient encounter procedure 12/16/2023 3:30 PM EDT Office Visit [facility] [address] [place] [address] Isabela Bazan MD [facility]note 3][address] [place] [address] [facility] Start: 11-15-2023 End: 11-15-2023 Patient encounter procedure 11/15/2023 3:00 PM EDT Office Visit [facility] [address] [place] [address] Isabela Bazan MD [facility][note 3][address] [place] [address] [facility] Start: 11-10-2023 End: 11-10-2023 Telemedicine consultation with patient 11/10/2023 10:45 AM EDT Telemedicine [address] [place] [id number] Isabela Bazan MD [facility][note 3][address] [place] [address] [facility] Start: 11-08-2023 End: 11-15-2023 Bacteria identified in Urine by Culture Urine Culture Microbiology Routine Dysuria Expected: 11/08/2023 (Approximate), Expires: 11/15/2023 [facility] Service Area Work Phone: Comment on above: Expected: 11/08/2023 (Approximate), Expires: 11/15/2023 Start: 11-01-2023 End: 11-01-2023 Patient encounter procedure 11/01/2023 10:00 AM EST Procedure Visit [facility] [address] [place] [address] [facility] Start: 10-07-2023 End: 10-07-2024 Prostate specific Ag [Mass/volume] in Serum or Plasma [facility] Service Area Work Phone: Comment on above: Expected: 10/07/2023 (Approximate), Expires: 10/07/2024 Start: 10-07-2023 End: 10-07-2024 XR Abdomen Single view [facility] Work Phone: Comment on above: Expected: 10/07/2023 (Approximate), Expires: 10/07/2024 Once for 1 Occurrenc es starting 10/07/2023 until 10/07/2023 Start: 06-10-2023 Diabetes screen Diabetes screen [employer] Work Phone: Start: 05-09-2023 Lipid screen Lipid screen [facility] [place], [place] Start: 04-30-2023 COVID-19 Vaccine ( season) COVID-19 Vaccine () [facility] Start: 04-30-2023 Influenza vaccination Influenza Vacc ine (#1) [facility] Start: 04-02-2023 Depression Screen Depression Screen [facility] [employer] Start: 07-08-2022 End: 07-08-2022 Patient encounter procedure 07/08/2022 Office Visit Pulmonology George Hernandez MD [address] [place] [address] [facility] [employer] [facility] Start: 06-30-2022 End: 06-30-2022 Patient encounter procedure 06/30/2022 Office Visit Cardiology Justin Espinoza MD [address] [place] [address] [employer] [facility] Start: 06-24-2022 Creatinine measurement Creatinine mo nitoring [employer] Phone: Start: 06-24-2022 Potassium monitoring Potassium monit oring [employer] Phone: Start: 06-15-2022 Annual Wellness Visi t (AWV) Annual Wellness Visit (AWV) [facility] Start: 06-15-2022 End: 06-15-2022 Patient encounter procedure [facility] Start: 06-12-2022 Lipid panel [facility] Start: 06-12-2022 Prostate specific an tigen measurement Prostate Specific Antigen (PSA) Screening or Monitoring [facility] Start: 06-11-2022 End: 06-11-2022 Patient encounter procedure 06/11/2022 Office Visit Cardiology Justin Espinoza MD [address] [address] [place] [address] [facility] Cardiology Start: 04-30-2022 Influenza vaccination [facility] Start: 04-20-2022 End: 04-20-2022 Patient encounter procedure 04/20/2022 Appointment Pulmonary Function Testing [facility] Start: 03-30-2022 Influenza vaccination Flu vaccine (# 1) [facility] Start: 2021 Fall risk assessment Falls Risk Asse ssment [facility] Start: 2021 Pneumococcal 65+ yea rs Vaccine (1 - PCV) Pneumococcal 65+ years Vaccine (1 - PCV) [facility] Start: 2021 Pneumococcal Vaccine : 65+ Years (1 - PCV) Pneumococcal Vaccine: 65+ Years (1 - PCV) [facility] Start: 2021 Pneumococcal Vaccine : 65+ Years (1 of 1 - PCV) Pneumococcal Vaccine: 65+ Years (1 of 1 - PCV) [facility] Start: 2021 Pneumococcal Vaccine : Age 65+ (1 - PCV) Pneumococcal Vaccine: Age 65+ (1 - PCV) [facility] Start: 10-16-2021 End: 10-16-2021 Patient encounter procedure 10/16/2021 Office Visit Cardiology Justin Espinoza MD [address] [address] [place] [address] [phone] [facility] Cardiology Start: 07-10-2021 End: 07-10-2021 Patient encounter procedure 07/10/[address] [facility] Ultrasound Start: 07-07-2021 End: 07-07-2021 Patient encounter procedure 07/07/2021 Office Visit Cardiology Justin Espinoza MD [address] [place] [address] [phone] [facility] Cardiology Start: 06-10-2021 Creatinine measurement Creatinine mo [facility] [employer] Phone: Start: 06-10-2021 Lipid panel Lipid screen [facility] Work Phone: Start: 06-10-2021 Potassium monitoring Potassium monit [facility] Work Phone: Start: 04-30-2021 Influenza vaccination M [facility] Work Phone: Start: 03-06-2021 End: 03-06-2021 Patient encounter procedure 03/06/2021 Office Visit Cardiology Justin Espinoza MD [address] [place] [address] [phone] [facility] Cardiology Start: 02-27-2021 End: 02-27-[address] [facility] Ultrasound Start: 05-15-2020 Creatinine measurement Creatinine mo [employer] Start: 05-15-2020 Creatinine monitoring Creatinine mon itoring [facility] [employer] Work Phone: Start: 05-15-2020 Lipid panel Lipid screen [place] Start: 05-15-2020 Lipid screen Lipid screen [facility] Work Phone: Start: 05-15-2020 Potassium monitoring Potassium monit [facility] [employer] Phone: Start: 04-30-2020 Influenza vaccination Flu vaccine (# 1) [place] Start: 06-07-2019 End: 06-07-2019 Office Visit 06/07/2019 Office Visit Cardiology Brain Freedman MD [address] [place] [address] [place] [address] [phone] [facility] Cardiology Start: 05-15-2019 End: 05-15-2019 Office Visit 05/15/2019 Office Visit Family Medicine Jarad Rey MD [address] [place], [place] [phone] [facility] Start: 05-09-2019 Creatinine monitoring Creatinine mon itoring [place] Start: 05-09-2019 Potassium monitoring Potassium monit oring [place] Start: 04-30-2019 Influenza vaccination Flu vaccine (# 1) [place] Start: 04-30-2017 Influenza vaccination SEQUENTI AL INFLUENZA VACCINE (#1) [facility] Work Phone: Start: 2016 Hepatitis B Vaccines (1 of 3 - Risk 3-dose series) Hepatitis B Vaccines (1 of 3 - Risk 3-dose series) [facility] Start: 2016 Respiratory Syncytia l Virus (RSV) or age 60 yrs+ (1 - 1-dose 60+ series) Respiratory Syncytial Virus (RSV) or age 60 yrs+ (1 - 1-dose 60+ series) [facility] Start: 2016 Respiratory Syncytia l Virus [...] - Risk 60-74 years 1-dose series) [facility] Start: 2016 RSV patient s and/or patients aged 60+ years (1 - 1-dose 60+ series) RSV patients and/or patients aged 60+ years (1 - 1-dose 60+ series) [facility] Start: 2016 Zoster vaccine hzv l sangita for subcutaneous use ZOSTER VACCINE [facility] Work Phone: Start: 2006 Administration of he rpes zoster vaccine Zoster Vaccines (1 of 2) [facility] Start: 2006 Colon cancer screen colonoscopy Colon cancer screen colonoscopy [place] Start: 2006 Pneumococcal vaccination Pneum ococcal Vaccine (1 of 1 - PCV) [facility] Start: 2006 Shingles Vaccine (1 of 2) Bermeo gles Vaccine (1 of 2) [facility] Start: 2006 Zoster Vaccines (1 of 2) Zoste r Vaccines (1 of 2) [facility] Start: 2001 Screening for malign ant neoplasm of colon [facility] Start: 1978 DTaP/Tdap/Td Vaccine s (1 - Tdap) DTaP/Tdap/Td Vaccines (1 - Tdap) [facility] Start: 12-03-1975 DTaP/Tdap/Td vaccine (1 - Tdap) DTaP/Tdap/Td vaccine (1 - Tdap) [facility] Start: 12-03-1975 Hepatitis A Vaccines (1 of 2 - Risk 2-dose series) Hepatitis A Vaccines (1 of 2 - Risk 2-dose series) [facility] Start: 12-03-1975 Pneumococcal 50+ yea rs Vaccine (1 of 2 - PCV) Pneumococcal 50+ years Vaccine (1 of 2 - PCV) [facility] Start: 1974 Diabetes mellitus screening Diabetes Screening [facility] Start: 1974 Hepatitis C screening Hepatitis C Sc reening [facility] Start: 12-03-1971 HIV screening HIV Screening [facility] Start: 1968 COVID-19 Vaccine (1) COVID-19 Vaccin e (1) [facility] [employer] Phone: Start: 1968 Depression screening using PHQ-9 (Patient Health Questionnaire 9) score Depression Screening (PHQ-2/9) [facility] Start: 12-03-1967 DTaP/Tdap/Td vaccine (1 - Tdap) DTaP/Tdap/Td vaccine (1 - Tdap) [facility] Phone: Start: 1962 Pneumococcal 65+ yea rs Vaccine (1 - PCV) Pneumococcal 65+ years Vaccine (1 - PCV) [facility] Start: 1962 Pneumococcal 65+ yea rs Vaccine (1 of 2 - PCV) Pneumococcal 65+ years Vaccine (1 of 2 - PCV) [facility] Start: 12-03-1959 History and physical examination, annual for health maintenance Wellness Visit [facility] Start: 1957 MMR Vaccines (1 of 1 - Standard series) MMR Vaccines (1 of 1 - Standard series) [facility] Start: 06-03-1957 COVID-19 Vaccine (#1) COVID-19 Vacci ne (#1) [facility] Start: 1956 Lipid panel Lipid Panel [facility] Start: 1956 Medicare Annual Well ness Visit Medicare Annual Wellness Visit (AWV) [facility] Start: 1956 Prostate specific an tigen measurement PSA Level [facility] Start: 1956 Screening for malign ant neoplasm of colon [facility] Start: 1956 Yearly Adult Physical Yearly Adult P hysical [facility] Start: 1956 HEPATITIS C SCREENING HEPATITIS C SC REENING [facility] Work Phone: Start: 1956 Screening colonoscopy COLONOSCOPY [facility] Work Phone: Start: 1956 End: 1956 Tetanus vaccination [facility] End: 11-09-2023 Bacteria identified in Urine by Culture [facility] Work Phone: Comment on above: Once (Lab) for 1 Occ urrences starting 11/09/2023 until 11/09/2023 End: 03-25-2025 Bacteria identified in Urine by Culture [facility] Work Phone: Comment on above: Once (Lab) for 1 Occ urrences starting 03/25/2025 until 03/25/2025 End: 05-04-2025 Bacteria identified in Urine by Culture [facility] Work Phone: Comment on above: Once (Lab) for 1 Occ urrences starting 05/04/2025 until 05/04/2025 End: 11-09-2023 Extra Urine [employer] Extra Urine [employer] Lab Timed Once for 1 Occurrences starting 11/09/2023 until 11/09/2023 [facility] Work Phone: Comment on above: Once for 1 Occurrenc es starting 11/09/2023 until 11/09/2023 End: 03-25-2025 Extra Urine [employer] Extra Urine [employer] Lab Timed Once for 1 Occurrences starting 03/25/2025 until 03/25/2025 [facility] Work Phone: Comment on above: Once for 1 Occurrenc es starting 03/25/2025 until 03/25/2025 End: 05-04-2025 Extra Urine [facility] Extra Urine [facility] Lab Timed Once for 1 Occurrences starting 05/04/2025 until 05/04/2025 [facility] Work Phone: Comment on above: Once for 1 Occurrenc es starting 05/04/2025 until 05/04/2025 End: 06-26-2024 Hemoglobin A1c/Hemoglobin.total in Blood [facility] Comment on above: 1 Occurrences starti ng 06/26/2024 until 06/26/2024 End: 05-08-2019 Holter monitor 24 hour Holter monitor 24 hour Cardiac Services Routine PVC (premature ventricular contraction) 1 Occurrences starting 05/08/2019 until 05/08/2019 [facility] [place], [place] Comment on above: 1 Occurrences starti ng 05/08/2019 until 05/08/2019 Initiate Oxygen Ther apy Protocol Initiate Oxygen Therapy Protocol Respiratory Care Routine Daily until discontinued starting 09/14/2019 [employer] Work Phone: Comment on above: Daily until disconti nued starting 09/14/2019 Phase I & II - meter ed glucose Phase I & II - metered glucose Point of Care Testing Routine As Needed until discontinued starting 09/14/2019 [employer] Work Phone: Comment on above: As Needed [...] for 1 Occurrences starting 02/17/2021 until 02/17/2021 [employer] Work Phone: Comment on above: Once for 1 Occurrenc es starting 02/17/2021 until 02/17/2021 XR HAND RIGHT (MIN 3 VIEWS) XR HAND RIGHT (MIN 3 VIEWS) Imaging STAT 02/17/2021 9:12 PM EDT [employer] Work Phone: Payers Date Payer Category Payer Self-pay 2021 [employer] s[employer] [facility] [id number] 2021 Medicare [id number]. [id number] 2021 Medicare [id number]. [id number] 2021 Unknown [id number] [id number]. [id number] 2017 Unknown [employer] - EXCHANGE xxxxxxxxxxxx 2017-Present [phone] [address] [place] [address] xxxxxxxxxxxx [id number]. [id number] 2017 Unknown 2015 Unknown [id number] 2.16.840.1.079937.3.249.13 1956 Unknown [id number] 2.16.840.1.441637.3.579.2. 903 1955 Unknown [id number] 2.16.840.1.484130.3.579.2. 182 1956 Unknown [id number] 2.16.840.1.703635.3.579.2. 1245 1956 Unknown [id number] 2.16.840.1.728413.3.579.2. 124 1956 Unknown [id number] 2.16.840.1.261457.3.579.2. 124 1956 Unknown [id number] 2.16.840.1.151611.3.579.2. 1243 1956 Unknown [id number] 2.16.840.1.262774.3.579.2. 1244 1956 Unknown [id number] 2.16.840.1.615331.3.579.2. 1243 1956 Unknown [id number] 2.16.840.1.352658.3.579.2. 1244 1956 Unknown [id number] 2.16.840.1.434441.3.579.2. 1243 1956 Unknown [id number] 2.16.840.1.242008.3.579.2. 1244 1956 Unknown [id number] 2.16.840.1.379169.3.579.2. 1243 1956 Unknown [id number] 2.16.840.1.337082.3.579.2. 185 1956 Unknown [id number] 2.16.840.1.652294.3.579.2. 185 1956 Unknown [id number] 2.16.840.1.948237.3.579.2. 1243 1956 Unknown [id number] 2.16.840.1.272892.3.579.2. 124 1956 Unknown [id number] 2.16.840.1.975568.3.579.2. 1243 Unknown [id number] 2.16.840.1.435374.3.579.2. 462 Unknown [id number] 2.16.840.1.276306.3.579.2. 462 Unknown [id number] 2.16.840.1.038864.3.579.2. 462 Social History Date Type Detail Facility Start: 05-19-2017 End: 05-05-2025 Tobacco smoking status NCIS Never smoker [facility] [employer] Start: 1955 Sex Assigned At Not on file [facility] Work Phone: Start: 10-12-2018 End: 05-04-2025 Alcohol intake No [facility] Start: 06-10-2020 End: 10-07-2023 Tobacco use and exposure [facility] [place] Start: 06-10-2020 End: 06-15-2022 Alcohol intake Current non-drinker of alcohol (finding) [employer] Work Phone: Start: 09-27-2023 End: 09-13-2024 Exposure to SARS-CoV-2 (event) Not sure [employer]- [place], [place] Start: 06-12-2021 End: 06-15-2022 History SDOH Financial 5 [employer] Work Phone: Start: 06-12-2021 End: 06-15-2022 History SDOH Food Worry 1 [employer] Work Phone: Tobacco smoking stat [facility] Tobacco smoking consumption unknown [facility] Start: 10-07-2023 End: 05-04-2025 Alcohol intake Lifetime non-drinker (finding) [facility] Work Phone: Start: 10-07-2023 End: 05-04-2025 History of Social function [facility] How often to you hav e a drink containing alcohol? Never [facility] Start: 07-24-2022 Average Number of Drinks Not on file [facility] (I/We) worried paola er (my/our) food would run out before (I/we) got money to buy more. Never true [facility] At any time in the p ast 12 months, were you homeless or living in correction [including now]? No [facility] Start: 1955 Sex assigned at Male [facility] Start: 03-25-2025 Gender identity Identifies as male gender (finding) [facility] Work Phone: Start: 03-25-2025 Sexual orientation Heterosexual (finding) [facility] Work Phone: Start: 10-09-2012 Sex Male (finding) [facility] Medical Equipment Procedure Code Equipment Code Equipment Origin al Text Equipment Identifier Dates Lithotripsy, ESWL STENT,URETERAL PIGTAIL [id number] FDA Start: 04-25-2025 Goals Date Patient Goal Desired Activity /State Functional Status Date Assessment Result Facility 05-06-2025 Functional status [facility]: 05-04-2025 [place] - suicide s everity rating scale screener - recent [C-SSRS] [facility] Work Phone: 04-25-2025 Functional status Ambulates [facility] Work Phone: 03-25-2025 [place] - suicide s everity rating scale screener - recent [C-SSRS] [facility] Work Phone: Mental Status Date Assessment Result Facility 05-06-2025 Cognitive function Level Of Cons ciousness Awake;Alert;Appropriate [facility] Work Phone: 05-06-2025 Cognitive function Voice/Name [facility] Work Phone: 04-25-2025 Cognitive function Level Of Consciousness Sedated [facility] Work Phone: 04-25-2025 Cognitive function Voice/Name [facility] Work Phone: Clinical Notes 06-03-2015 to 05-06-2025 Note Date & Type Note Facility 05-06-2025 Hospital Discharg e instructions Additional Instructions Date of Discharge: 05/06/25 [facility] Work Phone: 05-06-2025 Discharge summary Note Date/Time May 06, 2025 8:59am [facility] Medical Records Department [address] [place] [address] Discharge Summary 05/06/25 0856 MR#: [id number] Acct: [id number] Name: RAMON COSTA Rep #:[id number] : 1955 69 From: Harjit Lam MD PCP: Jarad Rey MD Status:ADM PORSHA [id number] Prov[facility] Date of Admission: 05/05/25 Date of Discharge: 05/06/25 Primary Care Physician: Dr. Jarad Rey MD Diagnosis Discharge Diagnosis (1) Calculus of kidney: Status: Acute Code(s): N20.0 - Calculus of kidney Plan: Plan to take him to surgery today to laser stone to place a stent Medications at Discharge Home Medications allopurinol 300 mg tablet 300 mg PO DAILY 04/13/25 ascorbic acid (vitamin C) 500 mg tablet (C-500) 1 g PO DAILY 04/13/25 atorvastatin 40 mg tablet 40 mg PO QHS 04/13/25 cholecalciferol (vitamin D3) 125 mcg (5,000 unit) tablet (Vitamin D3) 125 mcg PODAILY 04/13/25 clopidogrel 75 mg tablet 75 mg PO DAILY 04/13/25 cyanocobalamin (vitamin B-12) 1,000 mcg capsule 1,000 mcg PO DAILY 04/13/25 losartan 25 mg tablet 25 mg PO DAILY 04/13/25 niacinamide 500 mg tablet 500 mg PO DAILY 04/13/25 pantoprazole 40 mg tablet,delayed release 40 mg PO DAILY 04/13/25 ropinirole 1 mg tablet 1 mg PO QHS 04/13/25 oxycodone 5 mg tablet 5 mg PO Q6H PRN pain 3 days #14 tabs 04/25/25 phenazopyridine 100 mg tablet (Pyridium) 100 mg PO TID #20 tabs 04/25/25 tamsulosin 0.4 mg capsule (Flomax) 0.4 mg PO DAILY #14 caps 04/25/25 ciprofloxacin HCl 500 mg tablet (Cipro) 500 mg PO BID #6 tabs 05/06/25 oxycodone 5 mg tablet 5 mg PO Q6H PRN pain 3 days #10 tabs 05/06/25 phenazopyridine 100 mg tablet (Pyridium) 100 mg PO TID #14 tabs 05/06/25 tamsulosin 0.4 mg capsule (Flomax) 0.4 mg PO DAILY #10 caps 05/06/25 Hospital Course Summary of Care Provided Hospital Course: Patient was admitted for [facility] after shockwave lithotripsy, he underwent ureteroscopy and laser lithotripsy of all the stones in the ureter got everything cleared out stent was placed he will go home today with a stent follow-up in my office for stent removal Weight / BMI Weight Weight: 110.6 kg Body Mass Index (BMI) 36.0 ABG / Lab / Microbiology Data 05/06/25 07:03 05/06/25 07:03 Laboratory: Laboratory Results - last 24 hr 05/06/25 07:03: WBC 8.5, RBC 3.86 L, Hgb 12.3 L, Hct 36.5 L, MCV 94.6 H, MCH 31.9, MCHC 33.7, RDW Std Deviation 47.3 H, RDW Coeff of Sarah 13.6, Plt Count 163,MPV 8.8, Immature Gran % (Auto) 0.600, Neut % (Auto) 72.5 H, Lymph % (Auto) 16.4L, Davison % (Auto) 8.9, Eos % (Auto) 1.2, Baso % (Auto) 0.4, Absolute Neuts (auto)6.2, Absolute Lymphs (auto) 1.39, Nucleated RBC % 0, Sodium 140, Potassium 4.0, Chloride 111 H, Carbon Dioxide 22.0, Anion Gap 7, BUN 12, Creatinine 1.43 H, Estim Creat Clear Calc 60.60, Est GFR (MDRD) Non-Af 53 L, BUN/Creatinine Ratio 8.7 L, Glucose 101 H, Calcium 8.1 D/C Instructions DC O2, CPAP, BIPAP Needs Home O2 Discharge instructions: No Meaningful Use Info Meaningful Use Meaningful Use Diagnoses (Choose all that apply): None applicable Discharge Plan Admission Admit Date/Time: 05/05/25 09:48 Primary Reason for Your Visit: laser stone Attending Provider: Harjit Lam Primary Care Provider: Jarad Rey Discharge Orders/Prescriptions Prescriptions: New ciprofloxacin HCl [Cipro] 500 mg tablet 500 mg PO BID Qty: 6 0RF tamsulosin [Flomax] 0.4 mg capsule 0.4 mg PO DAILY Qty: 10 0RF phenazopyridine [Pyridium] 100 mg tablet 100 mg PO TID Qty: 14 0RF oxycodone 5 mg tablet 5 mg PO Q6H PRN (Reason: pain) 3 Days Qty: 10 0RF Continued atorvastatin 40 mg tablet 40 mg PO QHS clopidogrel 75 mg tablet 75 mg PO DAILY pantoprazole 40 mg tablet,delayed release (DR/EC) 40 [...] (5,000 unit) tablet 125 mcg PO DAILY tamsulosin [Flomax] 0.4 mg capsule 0.4 mg PO DAILY Qty: 14 0RF phenazopyridine [Pyridium] 100 mg tablet 100 mg PO TID Qty: 20 0RF oxycodone 5 mg tablet 5 mg PO Q6H PRN (Reason: pain) 3 Days Qty: 14 0RF Referrals / Follow Up: Jarad Rey MD [Primary Care Provider] - Disposition Disposition (needs filled in before D/C Order can be placed): Home, Self Care 05/06/25 0859 <Electronically signed by Harjit Lam MD> Cosigner Signature (if applicable): CC: Dr. Harjit Lam MD; Jarad Rey MD~ Signed [facility] Work Phone: 1(689) 776-695709-07-2025 Discharge summary [facility] Medical Records Department [address] [place] [address] Discharge Summary 05/06/25 0856 MR#: [id number] Acct: [id number] Name: RAMON COSTA Rep #:[id number] : 1955 69 From: Harjit Lam MD PCP: Jarad Rey MD Status:ADM PORSHA Location: [place] [address] Providers Date of Admission: 05/05/25 Date of Discharge: 05/06/25 Primary Care Physician: Dr. Jarad Rey MD Diagnosis Discharge Diagnosis (1) Calculus of kidney: Status: Acute Code(s): N20.0 - Calculus of kidney Plan: Plan to take him to surgery today to laser stone to place a stent Medications at Discharge Home Medications allopurinol 300 mg tablet 300 mg PO DAILY 04/13/25 ascorbic acid (vitamin C) 500 mg tablet (C-500) 1 g PO DAILY 04/13/25 atorvastatin 40 mg tablet 40 mg PO QHS 04/13/25 cholecalciferol (vitamin D3) 125 mcg (5,000 unit) tablet (Vitamin D3) 125 mcg PODAILY 04/13/25 clopidogrel 75 mg tablet 75 mg PO DAILY 04/13/25 cyanocobalamin (vitamin B-12) 1,000 mcg capsule 1,000 mcg PO DAILY 04/13/25 losartan 25 mg tablet 25 mg PO DAILY 04/13/25 niacinamide 500 mg tablet 500 mg PO DAILY 04/13/25 pantoprazole 40 mg tablet,delayed release 40 mg PO DAILY 04/13/25 ropinirole 1 mg tablet 1 mg PO QHS 04/13/25 oxycodone 5 mg tablet 5 mg PO Q6H PRN pain 3 days #14 tabs 04/25/25 phenazopyridine 100 mg tablet (Pyridium) 100 mg PO TID #20 tabs 04/25/25 tamsulosin 0.4 mg capsule (Flomax) 0.4 mg PO DAILY #14 caps 04/25/25 ciprofloxacin HCl 500 mg tablet (Cipro) 500 mg PO BID #6 tabs 05/06/25 oxycodone 5 mg tablet 5 mg PO Q6H PRN pain 3 days #10 tabs 05/06/25 phenazopyridine 100 mg tablet (Pyridium) 100 mg PO TID #14 tabs 05/06/25 tamsulosin 0.4 mg capsule (Flomax) 0.4 mg PO DAILY #10 caps 05/06/25 Hospital Course Summary of Care Provided Hospital Course: Patient was admitted for Steinstrasse after shockwave lithotripsy, he underwent ureteroscopy and laser lithotripsy of all the stones in the ureter got everything cleared out stent was placed he will go home today with a stent follow-up in my office for stent removal Weight / BMI Weight Weight: 110.6 kg Body Mass Index (BMI) 36.0 ABG / Lab / Microbiology Data 05/06/25 07:03 05/06/25 07:03 Laboratory: Laboratory Results - last 24 hr 05/06/25 07:03: WBC 8.5, RBC 3.86 L, Hgb 12.3 L, Hct 36.5 L, MCV 94.6 H, MCH 31.9, MCHC 33.7, RDW Std Deviation 47.3 H, RDW Coeff of Sarah 13.6, Plt Count 163,MPV 8.8, Immature Gran % (Auto) 0.600, Neut % (Auto) 72.5 H, Lymph % (Auto) 16.4L, Davison % (Auto) 8.9, Eos % (Auto) 1.2, Baso % (Auto) 0.4, Absolute Neuts (auto)6.2, Absolute Lymphs (auto) 1.39, Nucleated RBC % 0, Sodium 140, Potassium 4.0, Chloride 111 H, Carbon Dioxide 22.0, Anion Gap 7, BUN 12, Creatinine 1.43 H, Estim Creat Clear Calc 60.60, Est GFR (MDRD) Non-Af 53 L, BUN/Creatinine Ratio 8.7 L, Glucose 101 H, Calcium 8.1 D/C Instructions DC O2, CPAP, BIPAP Needs Home O2 Discharge instructions: No Meaningful Use Info Meaningful Use Meaningful Use Diagnoses (Choose all that apply): None applicable Discharge Plan Admission Admit Date/Time: 05/05/25 09:48 Primary Reason for Your Visit: laser stone Attending Provider: Harjit Lam Primary Care Provider: Jarad Rey Discharge Orders/Prescriptions Prescriptions: New ciprofloxacin HCl [Cipro] 500 mg tablet 500 mg PO BID Qty: 6 0RF tamsulosin [Flomax] 0.4 mg capsule 0.4 mg PO DAILY Qty: 10 0RF phenazopyridine [Pyridium] 100 mg tablet 100 mg PO TID Qty: 14 0RF oxycodone 5 mg tablet 5 mg PO Q6H PRN (Reason: pain) 3 Days Qty: 10 0RF Continued atorvastatin 40 mg tablet 40 mg PO QHS clopidogrel 75 mg tablet 75 mg PO DAILY pantoprazole 40 mg tablet,delayed release (DR/EC) 40 [...] (5,000 unit) tablet 125 mcg PO DAILY tamsulosin [Flomax] 0.4 mg capsule 0.4 mg PO DAILY Qty: 14 0RF phenazopyridine [Pyridium] 100 mg tablet 100 mg PO TID Qty: 20 0RF oxycodone 5 mg tablet 5 mg PO Q6H PRN (Reason: pain) 3 Days Qty: 14 0RF Referrals / Follow Up: Jarad Rey MD [Primary Care Provider] - Disposition Disposition (needs filled in before D/C Order can be placed): Home, Self Care 05/06/25 0859 Cosigner Signature (if applicable): CC: Dr. Harjit Lam MD; Jarad Rey MD~ Signed [facility]09-07-2025 [facility] Medical Records Department [address] [place] [address] Discharge Summary 05/06/25 0856 MR#: [id number] Acct: [id number] Name: RAMON COSTA Rep #: [id number] : 1955 69 From: Harjit Lam MD PCP: Jarad Rey MD Status:ADM PORSHA Location: [place] [address] Providers Date of Admission: 05/05/25 Date of Discharge: 05/06/25 Primary Care Physician: Dr. Jarad Rey MD Diagnosis Discharge Diagnosis (1) Calculus of kidney: Status: Acute Code(s): N20.0 - Calculus of kidney Plan: Plan to take him to surgery today to laser stone to place a stent Medications at Discharge Home Medications allopurinol 300 mg tablet 300 mg PO DAILY 04/13/25 ascorbic acid (vitamin C) 500 mg tablet (C-500) 1 g PO DAILY 04/13/25 atorvastatin 40 mg tablet 40 mg PO QHS 04/13/25 cholecalciferol (vitamin D3) 125 mcg (5,000 unit) tablet (Vitamin D3) 125 mcg PO DAILY 04/13/25 clopidogrel 75 mg tablet 75 mg PO DAILY 04/13/25 cyanocobalamin (vitamin B-12) 1,000 mcg capsule 1,000 mcg PO DAILY 04/13/25 losartan 25 mg tablet 25 mg PO DAILY 04/13/25 niacinamide 500 mg tablet 500 mg PO DAILY 04/13/25 pantoprazole 40 mg tablet,delayed release 40 mg PO DAILY 04/13/25 ropinirole 1 mg tablet 1 mg PO QHS 04/13/25 oxycodone 5 mg tablet 5 mg PO Q6H PRN pain 3 days #14 tabs 04/25/25 phenazopyridine 100 mg tablet (Pyridium) 100 mg PO TID #20 tabs 04/25/25 tamsulosin 0.4 mg capsule (Flomax) 0.4 mg PO DAILY #14 caps 04/25/25 ciprofloxacin HCl 500 mg tablet (Cipro) 500 mg PO BID #6 tabs 05/06/25 oxycodone 5 mg tablet 5 mg PO Q6H PRN pain 3 days #10 tabs 05/06/25 phenazopyridine 100 mg tablet (Pyridium) 100 mg PO TID #14 tabs 05/06/25 tamsulosin 0.4 mg capsule (Flomax) 0.4 mg PO DAILY #10 caps 05/06/25 Hospital Course Summary of Care Provided Hospital Course: Patient was admitted for Steinstrasse after shockwave lithotripsy, he underwent ureteroscopy and laser lithotripsy of all the stones in the ureter got everything cleared out stent was placed he will go home today with a stent follow-up in my office for stent removal Weight / BMI Weight Weight: 110.6 kg Body Mass Index (BMI) 36.0 ABG / Lab / Microbiology Data 05/06/25 07:03 05/06/25 07:03 Laboratory: Laboratory Results - last 24 hr 05/06/25 07:03: WBC 8.5, RBC 3.86 L, Hgb 12.3 L, Hct 36.5 L, MCV 94.6 H, MCH 31.9, MCHC 33.7, RDW Std Deviation 47.3 H, RDW Coeff of Sarah 13.6, Plt Count 163, MPV 8.8, Immature Gran % (Auto) 0.600, N eut % (Auto) 72.5 H, Lymph % (Auto) 16.4 L, Davison % (Auto) 8.9, Eos % (Auto) 1.2, Baso % (Auto) 0.4, Absolute Neuts (auto) 6.2, Absolute Lymphs (auto) 1.39, Nucleated RBC % 0, Sodium 140, Potassium 4.0, Chloride 111 H, Carbon Dioxide 22.0, Anion Gap 7, BUN 12, Creatinine 1.43 H, Estim Creat Clear Calc 60.60, Est GFR (MDRD) Non-Af 53 L, BUN/Creatinine Ratio 8.7 L, Glucose 101 H, Calcium 8.1 D/C Instructions DC O2, CPAP, BIPAP Needs Home O2 Discharge instructions: No Meaningful Use Info Meaningful Use Meaningful Use Diagnoses (Choose all that apply): None applicable Discharge Plan Admission Admit Date/Time: 05/05/25 09:48 Primary Reason for Your Visit: laser stone Attending Provider: Harjit Lam Primary Care Provider: Jarad Rey Discharge Orders/Prescriptions Prescriptions: New ciprofloxacin HCl [Cipro] 500 mg tablet 500 mg PO BID Qty: 6 0RF tamsulosin [Flomax] 0.4 mg capsule 0.4 mg PO DAILY Qty: 10 0RF phenazopyridine [Pyridium] 100 mg tablet 100 mg PO TID Qty: 14 0RF oxycodone 5 mg tablet 5 mg PO Q6H PRN (Reason: pain) 3 Days Qty: 10 0RF Continued atorvastatin 40 mg tablet 40 mg PO QHS clopidogrel 75 mg tablet 75 mg PO DAILY pantoprazole 40 mg tablet,delayed release (DR/EC) 40 [...] (5,000 unit) tablet 125 mcg PO DAILY tamsulosin [Flomax] 0.4 mg capsule 0.4 mg PO DAILY Qty: 14 0RF phenazopyridine [Pyridium] 100 mg tablet 100 mg PO TID Qty: 20 0RF oxycodone 5 mg tablet 5 mg PO Q6H PRN (Reason: pain) 3 Days Qty: 14 0RF Referrals / Follow Up: Jarad Rey MD [Primary Care Provider] - Disposition Disposition (needs filled in before D/C Order can be placed): Home, Self Care 05/06/25 0859 Cosigner Signature (if applicable): CC: Dr. Harjit Lam MD; Jarad Rey MD [facility]09-06-2025 Consult note Author Shankar Torres [facility] Note Date/Time May 05, 2025 10:15am [facility] Medical Records Department [address] [place] [address] Anesthesia Postop Eval II 05/05/25 1014 MR#: [id number] Acct: [id number] Name: RAMON COSTA Rep #:[id number] : 1955 69 From: Shankar Torres MD PCP: Jarad Rey MD Status:ADM PORSHA Y Race: C Location: [place] [address] Anesthesia Postop Eval I Sum Postop Eval Completion status Anesthesia document: Postop Eval 1 completed: Yes Anesthesia Postop Eval I Summary Anesthesia Postop Eval I Summary: Anesthesia Postop Eval I: Assessment Summary Airway patent Yes 05/05/25 10:13 Spontaneous unlabored Yes 05/05/25 10:13 respirations Mental status Awake 05/05/25 10:13 nausea No 05/05/25 10:13 Vomiting No 05/05/25 10:13 Anesthesia Postop Eval I: Fluid Summary Crystalloid volume administer 800 05/05/25 10:14 (ml) Colloids volume administered ( ml) Blood Product volume administered (ml) Total IV fluid infused 800 05/05/25 10:14 Anesthesia Postop Eval I: Summary Notes Anesthesia Complication Yes 05/05/25 10:13 Anesthesia Complication pinched right 05/05/25 10:14 Comment: upper lip during intubation with glidescope while manipulating position for ET placement. cleaned . patient notified /aware Post-operative progress note Anesthesia: Postop Eval II Evaluation Mental status: Awake and Calm Pain Level: 0 nausea: No Vomiting: No 05/05/25 1015 <Electronically signed by Shankar Torres MD > Date _ Shankar Torres MD Cosigner Signature: Date CC: ~ Signed [facility] Work Phone: 1(444) 608-877409-06-2025 Consult note Author Shankar Torres [facility] Note Date/Time May 05, 2025 10:14am [facility] Medical Records Department [address] [place] [address] Anesthesia Postop Eval I 05/05/25 1004 MR#: [id number] Acct: [id number] Name: RAMON COSTA Rep #:[id number] : 1955 69 From: Shankar Torres MD PCP: Jarad Rey MD Status:ADM PORSHA Y Race: C Location: [place] [address] Anesthesia: Postop Eval I Current Vital Signs Temperature: 96.8 F Pulse Rate: 76 Blood Pressure: 142/71 Respiratory Rate: 16 Pulse Ox: 100 Oxygen Delivery Method: Room Air Assessment Airway patent: Yes Spontaneous unlabored respirations: Yes Mental status: Awake nausea: No Vomiting: No Anesthesia Complication: Yes Anesthesia Complication Comment:: pinched right upper lip during intubation with glidescope while manipulating position for ET placement. cleaned. patient notified/aware Fluid Hydration Crystalloid volume administer (ml): 800 Total IV fluid infused: 800 Progress Note Anesthesia document: Postop Eval 1 completed: Yes 05/05/25 1014 <Electronically signed by Shankar Torres MD > Date _ Shankar Torres MD Cosign Signature: Date CC: ~ Signed [facility] Work Phone: 1(532) 714-118909-06-2025 Evaluation note* Diagnosis Onset Date Resolution Status Admit Date Calculus of kidney acute Septem 2024 9:48am [facility] Work Phone: 1(859) 713-597509-06-2025 Consult note [facility] Medical Records Department [address] [place] [address] Anesthesia Postop Eval II 05/05/25 1014 MR#: [id number] Acct: [id number] Name: RAMON COSTA Rep #:[id number] : 1955 69 From: Shankar Torres MD PCP: Jarad Rey MD Status:ADM PORSHA Y Race: C Location: [place] [id number] 1 Anesthesia Postop Eval I Sum Postop Eval Completion status Anesthesia document: Postop Eval 1 completed: Yes Anesthesia Postop Eval I Summary Anesthesia Postop Eval I Summary: Anesthesia Postop Eval I: Assessment Summary Airway patent Yes 05/05/25 10:13 Spontaneous unlabored Yes 05/05/25 10:13 respirations Mental status Awake 05/05/25 10:13 nausea No 05/05/25 10:13 Vomiting No 05/05/25 10:13 Anesthesia Postop Eval I: Fluid Summary Crystalloid volume administer 800 05/05/25 10:14 (ml) Colloids volume administered ( ml) Blood Product volume administered (ml) Total IV fluid infused 800 05/05/25 10:14 Anesthesia Postop Eval I: Summary Notes Anesthesia Complication Yes 05/05/25 10:13 Anesthesia Complication pinched right 05/05/25 10:14 Comment: upper lip during intubation with glidescope while manipulating position for ET placement. cleaned . patient notified /aware Post-operative progress note Anesthesia: Postop Eval II Evaluation Mental status: Awake and Calm Pain Level: 0 nausea: No Vomiting: No 05/05/25 1015 > Date _ Shankar Torres MD Cosigner Signature: Date CC: ~ Signed [facility]09-06-2025 Consult note [facility] Medical Records Department [address] [place] [address] Anesthesia Postop Eval I 05/05/25 1004 MR#: [id number] Acct: [id number] Name: RAMON COSTA Rep #:[id number] : 1955 69 From: Shankar Torres MD PCP: Jarad Rey MD Status:ADM PORSHA Y Race: C Location: [address] Anesthesia: Postop Eval I Current Vital Signs Temperature: 96.8 F Pulse Rate: 76 Blood Pressure: 142/71 Respiratory Rate: 16 Pulse Ox: 100 Oxygen Delivery Method: Room Air Assessment Airway patent: Yes Spontaneous unlabored respirations: Yes Mental status: Awake nausea: No Vomiting: No Anesthesia Complication: Yes Anesthesia Complication Comment:: pinched right upper lip during intubation with glidescope while manipulating position for ET placement. cleaned. patient notified/aware Fluid Hydration Crystalloid volume administer (ml): 800 Total IV fluid infused: 800 Progress Note Anesthesia document: Postop Eval 1 completed: Yes 05/05/25 1014 > Date _ [facility] Signature: Date CC: ~ Signed [facility]09-06-2025 Procedure note [facility] Medical Records Department [address] [place] [address] Operative Report 05/05/25 0943 MR#: [id number] Acct: [id number] Name: RAMON COSTA Rep #:[id number] : 1955 69 From: Harjit Lam MD PCP: Jarad Rey MD Status:ADM PORSHA Location: [place] [address] Operative Report (Standard) Operative Information Date of Procedure: 05/05/25 Pre-Operative Diagnosis: Right ureteral calculi status post ESWL with multiple fragments in the ureter Post-Operative Diagnosis: The same Surgery/Procedure Performed: Cystoscopy right ureteroscopy laser lithotripsy of stones in the ureter and right stent placement dragline oiler: No Type of Anesthesia: General RN Documented Start/Stop Times: Operation Date: 05/05/25 07:40 Case Time Anesthesia Start 05/05/25 07:44 Into Room 05/05/25 07:44 Procedure Start 05/05/25 08:04 Procedure Start Time: 08:04 Procedure Stop Time: :44 Select all DRAINS/GRAFTS/IMPLANTS that apply: Drains Drain details: 6 Macanese by 26 cm stent Estimated Blood Loss: 10 cc Specimen collected: No Description of surgery: Indication 69-year-old male who underwent shockwave lithotripsy about a week elías half ago stone did break up really well on x-ray stent was removed and and then he presented to outside emergency room with severe pain CAT scan showed that multiple stone fragments in the ureter that have blocked hisright kidney so he was transferred over and taken to surgery today to laser out these stone fragments that are not been able to pass through the ureter. Patient was taken back to the operating room after the induction of anesthesia he was placed in dorsolithotomy position. I went into the bladder with a 21 Macanese rigid cystourethroscope put a wire upthe right kidney and then over the wire went in with a flexible ureteroscope was able to get into the ureter and immediately encountered a significant burden of stones in the distal ureter I used a 200 ?m laser fiber and slowly lasered the stones in the little pieces I then backed out of the ureterand let the fragments pass then went up the ureterfurther and encountered another significant burden of stone stuck in the ureter very carefully lasered the stones and then backed out of the ureter and let these fragments pass and then finally went up to the proximal ureter and encountered the lastfragment of stones in the ureter these were lasered completely and then backed out of the ureter and these all these fragments passed up and up to the kidney finally was able to get the entire ureterclear went all the way to kidney found a small pocket of stones in the midpole these were lasered little tiny pieces no other major fragments were seen I then put a wire up or my way down the ureter no other stone stent fragment seen along the ureter all the major fragments and passed the put a stent up on the right kidneythe stent coiled in the bladder and in the kidney I had to push a stent little bit back in the prostate but eventually coiled properly and the stent coiled in the kidney bladder in good position. After successfully lasering all the fragments that were in the ureter will see him in 10 days to remove stent Surgical Findings: Stones in the ureter all lasered and removed from the ureter stent placed Complications Complications: Yes Complication Details: stones stuck in ureter some mucosal tearing in the ureter from stone and lasering stone Admit VTE Documentation VTE Present on Admission: No VTE Mechan Device Prophylaxis: SCD's VTE Pharm Prophylaxis ordered?: No 05/05/25 0948 Cosigner Signature (if applicable): CC: Dr. Harjit Lam MD; Jarad Rey MD~ Signed [facility]09-06-2025 History and physical note Author Harjit Brigitte [facility] Note Date/Time May 05, 2025 7:37am [facility] Medical Records Department [address] [place] [id number] History & Physical Exam 05/05/25 0736 MR#: [id number] Acct: [id number] Name: RAMON COSTA Rep #:[id number] : 1955 69 From: Harjit Lam MD PCP: Jarad Rey MD Status:ADM [facility] Location: [place] [address] HPI - General General Date of Admission: 05/05/25 Date of Service: 05/05/25 HPI Narrative RAMON COSTA, is a 69 M who presents to the hospital as a transfer from the outside hospital he underwent shockwave lithotripsy for a large stone in the right kidney then presented to the hospital after the stent removed removed withfragments stuck in the proximal ureter and within the ureter itself so he was admitted as a transfer from an outside hospital and the plan to take him to surgery today for ureteroscopy laser lithotripsy of stone fragments stent placement [facility] Medical History Wears glasses Cancer Prostate disease High cholesterol Back pain Injury of back History of diverticulitis Gastric reflux Asthma Shortness of breath on exertion CPAP (continuous positive airway pressure) dependence Non-smoker History of edema History of stress test Cardiology follow-up encounter Hypertension Home Medications ?Medication ?Instructions ?Recorded ?Last Taken ?Type allopurinol 300 mg tablet 300 mg PO DAILY 04/13/2501/21 10:00 History ascorbic acid (vitamin C) 500 mg 1 g PO DAILY 04/13/25 05/04/25 10:00 History tablet (C-500) atorvastatin 40 mg tablet 40 mg PO QHS 04/13/25 22:00 History cholecalciferol (vitamin D3) 125 125 mcg PO DAILY 03/3005/04/25 10:00 History mcg (5,000 unit) tablet (Vitamin D3) clopidogrel 75 mg tablet 75 mg PO DAILY 04/13/2503/31 History Held on 04/25/25. Instructions: Resume on 05/02/25. cyanocobalamin (vitamin B-12) 1,000 mcg PO DAILY 04/1305/04/25 10:00 History 1,000 mcg capsule losartan 25 mg tablet 25 mg PO DAILY 04/13/2501/21 10:00 History niacinamide 500 mg tablet 500 mg PO DAILY 04/13/2501/21 10:00 History pantoprazole 40 mg tablet,delayed 40 mg PO DAILY 04/1305/04/25 10:00 History release ropinirole 1 mg tablet 1 mg PO QHS 04/13/25 22:00 History oxycodone 5 mg tablet 5 mg PO Q6H PRN pain 3 days #14 04/25/25 05/03/25 13:00 Rx tabs phenazopyridine 100 mg tablet 100 mg PO TID #20 tabs 0 04/25/25 05/04/25 10:00 Rx (Pyridium) tamsulosin 0.4 mg capsule (Flomax) 0.4 mg PO DAILY #14 caps 04/25/25 05/04/25 10:00 Rx Allergy/AdvReac Type Severity Reaction Status Date / Time sulfamethoxazole (From AdvReac Intermediate Nausea/Vom/ Verified 04/25/25 12:00 Bactrim) Diarrhea trimethoprim (From Bactrim) AdvReac Intermediate Nausea/Vom/ Verified 04/25/25 12:00 Diarrhea Surgical History History of cardiac catheterization History of esophagogastroduodenoscopy (EGD) Hx of colonoscopy History of coronary artery stent placement Social History Smoking Status: Never smoker Vital Signs Vital Signs Vital Signs: 05/05/25 04:28 05/05/25 07:25 Temperature 98.0 F 98.0 F Temperature Source Temporal Pulse Rate 82 82 Respiratory Rate 16 16 Blood Pressure 160/83 H 160/83 H Blood Pressure Mean 108 Blood Pressure Source Monitor Blood Pressure Position Semi-Fowlers Blood Pressure Location Left Arm Pulse Ox 99 99 Oxygen Delivery Method Room Air Weight Weight: 110.6 kg Body Mass Index (BMI) 36.0 Physical Exam Const alert and oriented x3 General Appearance: cooperative HEENT normocephalic, head/scalp atraumatic, EAC's normal and TM's normal bilaterally Eyes PERRL and EOMs intact bilaterally Pupil: sluggish Neck no lymphadenopathy, supple and no JVD General: trachea midline Lymph Lymphatic: no lymphadenopathy noted, lymphedema and lymphadenopathy Resp normal respiratory effort, normal air movement and clear to auscultation bilaterally Cardio regular rate, regular rhythm and peripheral pulses 2+ throughout GI soft to palpation, non-tender and non-distended Extremity normal capillary refill and no clubbing, cyanosis or edema General Extremity: no tenderness to palpation of joints or extremities Skin no rashes or lesions noted General Skin Exam: turgor normal Lesions: no lesions Rashes: no rashes Neuro CN's II-XII intact bilaterally Speech: speech normal Motor Exam: strength 5/5 throughout; Negative for general weakness Psych thought process normal, cooperative and affect normal Appearance: appropriate Results Lab / Micro Data 05/05/25 05:52 05/05/25 05:52 Labs: Laboratory Results - last 24 hr 05/05/25 05:52: WBC 12.0 H, RBC 4.65, Hgb 14.9, Hct 43.0, MCV 92.5, MCH 32.0, MCHC 34.7, RDW Std Deviation 45.0 H, RDW Coeff of Sarah 13.3, Plt Count 191, MPV 8.4, Immature Gran % (Auto) 0.600, Neut % (Auto) 73.1 H, Lymph % (Auto) 17.1 L, Davison % (Auto) 8.5, Eos % (Auto) 0.5, Baso % (Auto) 0.2, Absolute Neuts (auto) 8.7 H, Absolute Lymphs (auto) 2.05, Nucleated RBC % 0, Sodium 138, Potassium 3.6, Chloride 106, Carbon Dioxide 20.0 L, Anion Gap 12, BUN 12, Creatinine 1.52 H, Estim Creat Clear Calc 57.01, Est GFR (MDRD) Non-Af 50 L, BUN/Creatinine Ratio 7.8 L, Glucose 116 H, Calcium 8.8 Assessment & Plan Assessment/Plan (1) Calculus of kidney: PLAN: Plan to take him to surgery today to laser stone to place a stent 05/05/25 0737 <Electronically signed by Harjit Lam MD> Cosigner Signature (if applicable): CC: Dr. Harjit Lam MD; Jarad Rey MD~ Signed [facility] Work Phone: 1(306) 322-630609-06-2025 Consult note Author Shankar lindsay [facility] Note Date/Time May 05, 2025 7:25am [facility] Medical Records Department [address] [place] [address] Pre-Anesthesia Evaluation 05/05/25 0724 MR#: [id number] Acct: [id number] Name: RAMON COSTA Rep #:[id number] : 1955 69 From: Shankar Torres MD PCP: Jarad Rey MD Status:ADM PORSHA Y Race: C Location: [place] [address] ASA Classification* ASA Classification ASA Classification: 3 and E Assessment & Plan Anesthesia* Anesthesia Assessment Anesthesia [...] risk assessments. Anesthesia Type Anesthesia Type: General Anesthesia Focused Assessment* Temperature: 98.0 F Pulse Rate: 82 Blood Pressure: 160/83 Respiratory Rate: 16 Pulse Ox: 99 Airway Assessment Mouth opens: >3 cm Mallampati Score: II Labs Anesthesia Preop lab: CBC WBC 12.0 K/mm3 (4.4-11.0) H 05/05/25 05:52 5 RBC 4.65 M/mm3 (4.6-6.2) 05/05/25 05:52 05/05/25 Hgb 14.9 g/dL (13.0-16.5) 05/05/25 05:52 05/05/25 Hct 43.0 % (40-54) 05/05/25 05:52 05/05/25 Plt Count 191 K/mm3 (150-450) 05/05/25 05:52 05/05/25 CHEMISTRY Potassium 3.6 mmol/L (3.3-5.1) 05/05/25 05:52 05/05/25 Sodium 138 mmol/L (133-145) 05/05/25 05:52 05/05/25 BUN 12 mg/dL (4-19) 05/05/25 05:52 05/05/25 Creatinine 1.52 mg/dL (0.70-1.20) H 05/05/25 05:52 Glucose 116 mg/dL (70-99) H 05/05/25 05:52 05/05/25 COAG Pre-Assessment Diagnosis/Proposed Procedure Planned Operative Procedure(s): cysto Laser Stent Anesthesia History Anesthesia History - hammerer: Anesthesia History - hammerer Hx Hospitalization No 04/13/25 13:21 Any Problems With Anesthesia No 05/05/25 04:37 Cholinesterase deficiency No 05/05/25 04:37 You/Your Family Experience No 05/05/25 04:37 fever (hyperthermia) with Relationship Recent Exposure to Contagious No 05/05/25 04:37 Disease Does patient have nerve No 05/05/25 04:37 stimulator Patient instructed to have No 05/05/25 04:37 device shut off --Does patient have Pacemaker or ICD? When Was Last Pacemaker Check QUESTION #4 FULL TEXT: You/Your Family Experience fever (hyperthermia) with Anesthesia Last Oral Intake Last Oral intake: Last Oral Intake NPO since Meds taken in AM with sips of water? Meds patient instructed to take am of surgery PONV PONV - hammerer: PONV - hammerer Female HX of Motion Sickness HX of N/V After Surgery Non-Smoker Duration of Surgery greater than 60 minutes Number of Risk Factors PONV Score Height & Weight Height & Weight: Anesthesia: Height & Weight Height 5 ft 9 in 05/05/25 04:28 Weight: 110.6 kg 05/05/25 04:28 Body Mass Index (BMI) 36.0 05/05/25 04:28 Respiratory Assessment Respiratory Assessment - hammerer: Respiratory Tract Infection Hx - hammerer Hx Respiratory Tract Infection No 05/05/25 04:37 STOP Sleep Apnea STOP Sleep Apnea - hammerer: STOP Sleep Apnea - hammerer Hx Hypertension No 05/05/25 04:33 Hx Sleep Apnea Yes 05/05/25 04:33 CPAP Yes 05/05/25 04:33 BIPAP No 05/05/25 04:33 Do you snore loudly (louder than talking or can be heard Do you often feel tired/ fatigued/ sleepy during daytime? Has anyone observed you stop breathing during sleep? STOP Results Positive 05/05/25 04:33 QUESTION #5 FULL TEXT : Do you snore loudly (louder than talking or can be heard through closed doors)? 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 Specify any problems Hx of Preganancy in last 3 N/A 05/05/25 04:33 Months Nurse Filling Out Transfusion AHINES 05/05/25 04:33 & Questions: Date: 05/05/25 05/05/25 04:33 Time: 04:35 05/05/25 04:33 Patient unable to answer at this time (ie. confused, unrespo /Reproduction History /Reproductive History - hammerer: /Reproductive Hx- hammerer Hx Now No 05/05/25 04:37 Gestational Age (in weeks): EDC: Hx Hx Para Hx Section SAB No 05/05/25 04:37 Active Medications Active Medications: Current Medications Generic Name Dose Route Start Last Admin Trade Name Freq PRN Reason Stop Dose Admin Ketorolac Tromethamine 15 mg 05/05/25 04:56 05/05/25 05:41 Ketorolac 15 Mg/Ml Vial IV 05/10/25 04:57 15 mg Q6H PRN PRN Administration Pain 1-10 Morphine Sulfate 2 mg 05/05/25 04:55 Morphine 2 Mg/Ml Syringe IV Q2H PRN PRN Pain Score 6-10 Ondansetron HCl 4 mg 05/05/25 04:57 05/05/25 05:40 Ondansetron 4 Mg/2 Ml Vial IV 4 mg Q6H PRN PRN Administration NAUSEA/VOMITING Sodium Chloride 10 - 40 ml 05/05/25 04:30 05/05/25 05:40 0.9% Saline Lock 10 Ml Syringe IV 10 ml UD PRN Administration SALINE FLUSH [facility] Medical History Wears glasses Cancer Prostate disease High cholesterol Back pain Injury of back History of diverticulitis Gastric reflux Asthma Shortness of breath on exertion CPAP (continuous positive airway pressure) dependence Non-smoker History of edema History of stress test Cardiology follow-up encounter Hypertension Home Medications ?Medication ?Instructions ?Recorded ?Last Taken ?Type allopurinol 300 mg tablet 300 mg PO DAILY 04/13/2501/21 10:00 History ascorbic acid (vitamin C) 500 mg 1 g PO DAILY 04/13/25 05/04/25 10:00 History tablet (C-500) atorvastatin 40 mg tablet 40 mg PO QHS 04/13/25 22:00 History cholecalciferol (vitamin D3) 125 125 mcg PO DAILY 03/3005/04/25 10:00 History mcg (5,000 unit) tablet (Vitamin D3) clopidogrel 75 mg tablet 75 mg PO DAILY 04/13/2503/31 History Held on 04/25/25. Instructions: Resume on 05/02/25. cyanocobalamin (vitamin B-12) 1,000 mcg PO DAILY 04/1305/04/25 10:00 History 1,000 mcg capsule losartan 25 mg tablet 25 mg PO DAILY 04/13/2501/21 10:00 History niacinamide 500 mg tablet 500 mg PO DAILY 04/13/2501/21 10:00 History pantoprazole 40 mg tablet,delayed 40 mg PO DAILY 04/1305/04/25 10:00 History release ropinirole 1 mg tablet 1 mg PO QHS 04/13/25 22:00 History oxycodone 5 mg tablet 5 mg PO Q6H PRN pain 3 days #14 04/25/25 05/03/25 13:00 Rx tabs phenazopyridine 100 mg tablet 100 mg PO TID #20 tabs 0 04/25/25 05/04/25 10:00 Rx (Pyridium) tamsulosin 0.4 mg capsule (Flomax) 0.4 mg PO DAILY #14 caps 04/25/25 05/04/25 10:00 Rx Allergy/AdvReac Type Severity Reaction Status Date / Time sulfamethoxazole (From AdvReac Intermediate Nausea/Vom/ Verified 04/25/25 12:00 Bactrim) Diarrhea trimethoprim (From Bactrim) AdvReac Intermediate Nausea/Vom/ Verified 04/25/25 12:00 Diarrhea Surgical History History of cardiac catheterization History of esophagogastroduodenoscopy (EGD) Hx of colonoscopy History of coronary artery stent placement Social History Smoking Status: Never smoker Review of Systems (Anesthesia) ROS Narrative System reviewed and no additional complaints, except as documented. 05/05/25724 <Electronically signed by Shankar Torres MD > Date _ Shankar Lujan Signature: Date CC: ~ Signed [facility] Work Phone: 1(590) 857-995009-06-2025 History and physical note [facility] Medical Records Department [address] [place] [address] History & Physical Exam 05/05/25 0736 MR#: [id number] Acct: [id number] Name: RAMON COSTA Rep #:[id number] : 1955 69 From: Harjit Lam MD PCP: Jarad Rey MD Status:ADM PORSHA Location: [facility] [id number] HPI - General General Date of Admission: 05/05/25 Date of Service: 05/05/25 HPI Narrative RAMON COSTA, is a 69 M who presents to the hospital as a transfer from the outside hospital he underwent shockwave lithotripsy for a large stone in the right kidney then presented to the hospital after the stent removed removed withfragments stuck in the proximal ureter and within the ureter itself so he was admitted as a transfer from an outside hospital and the plan to take him to surgery today for ureteroscopy laser lithotripsy of stone fragments stent placement [facility] Medical History Wears glasses Cancer Prostate disease High cholesterol Back pain Injury of back History of diverticulitis Gastric reflux Asthma Shortness of breath on exertion CPAP (continuous positive airway pressure) dependence Non-smoker History of edema History of stress test Cardiology follow-up encounter Hypertension Home Medications ?Medication ?Instructions ?Recorded ?Last Taken ?Type allopurinol 300 mg tablet 300 mg PO DAILY 04/13/2501/21 10:00 History ascorbic acid (vitamin C) 500 mg 1 g PO DAILY 04/13/25 05/04/25 10:00 History tablet (C-500) atorvastatin 40 mg tablet 40 mg PO QHS 04/13/25 22:00 History cholecalciferol (vitamin D3) 125 125 mcg PO DAILY 03/3005/04/25 10:00 History mcg (5,000 unit) tablet (Vitamin D3) clopidogrel 75 mg tablet 75 mg PO DAILY 04/13/2503/31 History Held on 04/25/25. Instructions: Resume on 05/02/25. cyanocobalamin (vitamin B-12) 1,000 mcg PO DAILY 04/1305/04/25 10:00 History 1,000 mcg capsule losartan 25 mg tablet 25 mg PO DAILY 04/13/25 0901/21 10:00 History niacinamide 500 mg tablet 500 mg PO DAILY 04/13/2501/21 10:00 History pantoprazole 40 mg tablet,delayed 40 mg PO DAILY 04/1305/04/25 10:00 History release ropinirole 1 mg tablet 1 mg PO QHS 04/13/25 22:00 History oxycodone 5 mg tablet 5 mg PO Q6H PRN pain 3 days #14 04/25/25 05/03/25 13:00 Rx tabs phenazopyridine 100 mg tablet 100 mg PO TID #20 tabs 0 04/25/25 05/04/25 10:00 Rx (Pyridium) tamsulosin 0.4 mg capsule (Flomax) 0.4 mg PO DAILY #14 caps 04/25/25 05/04/25 10:00 Rx Allergy/AdvReac Type Severity Reaction Status Date / Time sulfamethoxazole (From AdvReac Intermediate Nausea/Vom/ Verified 04/25/25 12:00 Bactrim) Diarrhea trimethoprim (From Bactrim) AdvReac Intermediate Nausea/Vom/ Verified 04/25/25 12:00 Diarrhea Surgical History History of cardiac catheterization History of esophagogastroduodenoscopy (EGD) Hx of colonoscopy History of coronary artery stent placement Social History Smoking Status: Never smoker Vital Signs Vital Signs Vital Signs: 05/05/25 04:28 05/05/25 07:25 Temperature 98.0 F 98.0 F Temperature Source Temporal Pulse Rate 82 82 Respiratory Rate 16 16 Blood Pressure 160/83 H 160/83 H Blood Pressure Mean 108 Blood Pressure Source Monitor Blood Pressure Position Semi-Fowlers Blood Pressure Location Left Arm Pulse Ox 99 99 Oxygen Delivery Method Room Air Weight Weight: 110.6 kg Body Mass Index (BMI) 36.0 Physical Exam Const alert and oriented x3 General Appearance: cooperative HEENT normocephalic, head/scalp atraumatic, EAC's normal and TM's normal bilaterally Eyes PERRL and EOMs intact bilaterally Pupil: sluggish Neck no lymphadenopathy, supple and no JVD General: trachea midline Lymph Lymphatic: no lymphadenopathy noted, lymphedema and lymphadenopathy Resp normal respiratory effort, normal air movement and clear to auscultation bilaterally Cardio regular rate, regular rhythm and peripheral pulses 2+ throughout GI soft to palpation, non-tender and non-distended Extremity normal capillary refill and no clubbing, cyanosis or edema General Extremity: no tenderness to palpation of joints or extremities Skin no rashes or lesions noted General Skin Exam: turgor normal Lesions: no lesions Rashes: no rashes Neuro CN's II-XII intact bilaterally Speech: speech normal Motor Exam: strength 5/5 throughout; Negative for general weakness Psych thought process normal, cooperative and affect normal Appearance: appropriate Results Lab / Micro Data 05/05/25 05:52 05/05/25 05:52 Labs: Laboratory Results - last 24 hr 05/05/25 05:52: WBC 12.0 H, RBC 4.65, Hgb 14.9, Hct 43.0, MCV 92.5, MCH 32.0, MCHC 34.7, RDW Std Deviation 45.0 H, RDW Coeff of Sarah 13.3, Plt Count 191, MPV 8.4, Immature Gran % (Auto) 0.600, Neut % (Auto) 73.1 H, Lymph % (Auto) 17.1 L, Davison % (Auto) 8.5, Eos % (Auto) 0.5, Baso % (Auto) 0.2, Absolute Neuts (auto) 8.7 H, Absolute Lymphs (auto) 2.05, Nucleated RBC % 0, Sodium 138, Potassium 3.6, Chloride 106, Carbon Dioxide 20.0 L, Anion Gap 12, BUN 12, Creatinine 1.52 H, Estim Creat Clear Calc 57.01, Est GFR (MDRD) Non-Af 50 L, BUN/Creatinine Ratio 7.8 L, Glucose 116 H, Calcium 8.8 Assessment & Plan Assessment/Plan (1) Calculus of kidney: PLAN: Plan to take him to surgery today to laser stone to place a stent 05/05/25736 Cosigner Signature (if applicable): CC: Dr. Harjit Lam MD; Jarad Rey MD~ Signed [facility]09-06-2025 [facility] Medical Records Department [address] [place] [address] History Physical Exam 05/05/25 0736 MR#: [id number] Acct: [id number] Name: RAMON COSTA Rep #: [id number] : 1955 69 From: Harjit Lam MD PCP: Jarad Rey MD Status:ADM PORSHA Location: [facility] [id number] HPI - General General Date of Admission: 05/05/25 Date of Service: 05/05/25 HPI Narrative RAMON COSTA, is a 69 M who presents to the hospital as a transfer from the outside hospital he underwent shockwave lithotripsy for a large stone in the right kidney then presented to the hospital after the stent removed removed with fragments stuck in the proximal ureter and within the ureter itself so he was admitted as a transfer from an outside hospital and the plan to take him to surgery today for ureteroscopy laser lithotripsy of stone fragments stent placement [facility] Medical History Wears glasses Cancer Prostate disease High cholesterol Back pain Injury of back History of diverticulitis Gastric reflux Asthma Shortness of breath on exertion CPAP (continuous positive airway pressure) dependence Non-smoker History of edema History of stress test Cardiology follow-up encounter Hypertension Home Medications ???Medication ???Instructions ???Recorded ???Last Taken ???Type allopurinol 300 mg tablet 300 mg PO DAILY 04/13/25 05/04/25 10:00 History ascorbic acid (vitamin C) 500 mg 1 g PO DAILY 04/13/25 05/04/25 10: 00 History tablet (C-500) atorvastatin 40 mg tablet 40 mg PO QHS 04/13/25 05/04/25 22: 00 History cholecalciferol (vitamin D3) 125 125 mcg PO DAILY 04/13/25 05/04/25 10:00 History mcg (5,000 unit) tablet (Vitamin D3) clopidogrel 75 mg tablet 75 mg PO DAILY 04/13/25 04/18/25 H istory Held on 04/25/25. Instructions: Resume on 05/02/25. cyanocobalamin (vitamin B-12) 1,000 mcg PO DAILY 04/13/25 10:00 History 1,000 mcg capsule losartan 25 mg tablet 25 mg PO DAILY 04/13/25 05/04/25 1 0:00 History niacinamide 500 mg tablet 500 mg PO DAILY 04/13/25 05/04/25 10:00 History pantoprazole 40 mg tablet,delayed 40 mg PO DAILY 04/13/25 05/04/25 10:00 History release ropinirole 1 mg tablet 1 mg PO QHS 04/13/25 05/04/25 22:0 0 History oxycodone 5 mg tablet 5 mg PO Q6H PRN pain 3 days #14 05/03/25 13:00 Rx tabs phenazopyridine 100 mg tablet 100 mg PO TID #20 tabs 04/25/25 10:00 Rx (Pyridium) tamsulosin 0.4 mg capsule (Flomax) 0.4 mg PO DAILY #14 caps 5 05/04/25 10:00 Rx Allergy/AdvReac Type Severity Reaction Status Date / Time sulfamethoxazole (From AdvReac Intermediate Nausea/Vom/ Verified 04/25/25 12:00 Bactrim) Diarrhea trimethoprim (From Bactrim) AdvReac Intermediate Nausea/Vom/ Verified 04/25/25 12:00 Diarrhea Surgical History History of cardiac catheterization History of esophagogastroduodenoscopy (EGD) Hx of colonoscopy History of coronary artery stent placement Social History Smoking Status: Never smoker Vital Signs Vital Signs Vital Signs: 05/05/25 04:28 05/05/25 07:25 Temperature 98.0 F 98.0 F Temperature Source Temporal Pulse Rate 82 82 Respiratory Rate 16 16 Blood Pressure 160/83 H 160/83 H Blood Pressure Mean 108 Blood Pressure Source Monitor Blood Pressure Position Semi-Fowlers Blood Pressure Location Left Arm Pulse Ox 99 99 Oxygen Delivery Method Room Air Weight Weight: 110.6 kg Body Mass Index (BMI) 36.0 Physical Exam Const alert and oriented x3 General Appearance: cooperative HEENT normocephalic, head/scalp atraumatic, EAC's normal and TM's normal bilaterally Eyes PERRL and EOMs intact bilaterally Pupil: sluggish Neck no lymphadenopathy, supple and no JVD General: trachea midline Lymph Lymphatic: no lymphadenopathy noted, lymphedema and lymphadenopathy Resp normal respiratory effort, normal air movement and clear to auscultation bilaterally Cardio regular rate, regular rhythm and peripheral pulses 2+ throughout GI soft to palpation, non-tender and non-distended Extremity normal capillary refill and no clubbing, cyanosis or edema General Extremity: no tenderness to palpation of joints or extremities Skin no rashes or lesions noted General Skin Exam: turgor normal Lesions: no lesions Rashes: no rashes Neuro CN's II-XII intact bilaterally Speech: speech normal Motor Exam: strength 5/5 throughout; Negative for general weakness Psych thought process normal, cooperative and affect normal Appearance: appropriate Results Lab / Micro Data 05/05/25 05:5 (more content not included)...[facility]09-06-2025 Consult note [facility] Medical Records Department [address] [place] [address] Pre-Anesthesia Evaluation 05/05/25 0724 MR#: [id number] Acct: [id number] Name: RAMON COSTA Rep #:[id number] : 1955 69 From: Shankar Torres MD PCP: Jarad Rey MD Status:ADM PORSHA Y Race: C Location: [facility] 1 ASA Classification* ASA Classification ASA Classification: 3 and E Assessment & Plan Anesthesia* Anesthesia Assessment Anesthesia [...] risk assessments. Anesthesia Type Anesthesia Type: General Anesthesia Focused Assessment* Temperature: 98.0 F Pulse Rate: 82 Blood Pressure: 160/83 Respiratory Rate: 16 Pulse Ox: 99 Airway Assessment Mouth opens: >3 cm Mallampati Score: II Labs Anesthesia Preop lab: CBC WBC 12.0 K/mm3 (4.4-11.0) H 05/05/25 05:52 5 RBC 4.65 M/mm3 (4.6-6.2) 05/05/25 05:52 05/05/25 Hgb 14.9 g/dL (13.0-16.5) 05/05/25 05:52 05/05/25 Hct 43.0 % (40-54) 05/05/25 05:52 05/05/25 Plt Count 191 K/mm3 (150-450) 05/05/25 05:52 05/05/25 CHEMISTRY Potassium 3.6 mmol/L (3.3-5.1) 05/05/25 05:52 05/05/25 Sodium 138 mmol/L (133-145) 05/05/25 05:52 05/05/25 BUN 12 mg/dL (4-19) 05/05/25 05:52 05/05/25 Creatinine 1.52 mg/dL (0.70-1.20) H 05/05/25 05:52 Glucose 116 mg/dL (70-99) H 05/05/25 05:52 05/05/25 COAG Pre-Assessment Diagnosis/Proposed Procedure Planned Operative Procedure(s): cysto Laser Stent Anesthesia History Anesthesia History - hammerer: Anesthesia History - hammerer Hx Hospitalization No 04/13/25 13:21 Any Problems With Anesthesia No 05/05/25 04:37 Cholinesterase deficiency No 05/05/25 04:37 You/Your Family Experience No 05/05/25 04:37 fever (hyperthermia) with Relationship Recent Exposure to Contagious No 05/05/25 04:37 Disease Does patient have nerve No 05/05/25 04:37 stimulator Patient instructed to have No 05/05/25 04:37 device shut off --Does patient have Pacemaker or ICD? When Was Last Pacemaker Check QUESTION #4 FULL TEXT: You/Your Family Experience fever (hyperthermia) with Anesthesia Last Oral Intake Last Oral intake: Last Oral Intake NPO since Meds taken in AM with sips of water? Meds patient instructed to take am of surgery PONV PONV - hammerer: PONV - hammerer Female HX of Motion Sickness HX of N/V After Surgery Non-Smoker Duration of Surgery greater than 60 minutes Number of Risk Factors PONV Score Height & Weight Height & Weight: Anesthesia: Height & Weight Height 5 ft 9 in 05/05/25 04:28 Weight: 110.6 kg 05/05/25 04:28 Body Mass Index (BMI) 36.0 05/05/25 04:28 Respiratory Assessment Respiratory Assessment - hammerer: Respiratory Tract Infection Hx - hammerer Hx Respiratory Tract Infection No 05/05/25 04:37 STOP Sleep Apnea STOP Sleep Apnea - hammerer: STOP Sleep Apnea - hammerer Hx Hypertension No 05/05/25 04:33 Hx Sleep Apnea Yes 05/05/25 04:33 CPAP Yes 05/05/25 04:33 BIPAP No 05/05/25 04:33 Do you snore loudly (louder than talking or can be heard Do you often feel tired/ fatigued/ sleepy during daytime? Has anyone observed you stop breathing during sleep? STOP Results Positive 05/05/25 04:33 QUESTION #5 FULL TEXT : Do you snore loudly (louder than talking or can be heard through closeddoors)? 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 Specify any problems Hx of Preganancy in last 3 N/A 05/05/25 04:33 Months Nurse Filling Out Transfusion AHINES 05/05/25 04:33 & Questions: Date: 05/05/25 05/05/25 04:33 Time: 04:35 05/05/25 04:33 Patient unable to answer at this time (ie. confused, unrespo /Reproduction History /Reproductive History - hammerer: /Reproductive Hx- hammerer Hx Now No 05/05/25 04:37 Gestational Age (in weeks): EDC: Hx Hx Para Hx Section SAB No 05/05/25 04:37 Active Medications Active Medications: Current Medications Generic Name Dose Route Start Last Admin Trade Name Freq PRN Reason Stop Dose Admin Ketorolac Tromethamine 15 mg 05/05/25 04:56 05/05/25 05:41 Ketorolac 15 Mg/Ml Vial IV 05/10/25 04:57 15 mg Q6H PRN PRN Administration Pain 1-10 Morphine Sulfate 2 mg 05/05/25 04:55 Morphine 2 Mg/Ml Syringe IV Q2H PRN PRN Pain Score 6-10 Ondansetron HCl 4 mg 05/05/25 04:57 05/05/25 05:40 Ondansetron 4 Mg/2 Ml Vial IV 4 mg Q6H PRN PRN Administration NAUSEA/VOMITING Sodium Chloride 10 - 40 ml 05/05/25 04:30 05/05/25 05:40 0.9% Saline Lock 10 Ml Syringe IV 10 ml UD PRN Administration SALINE FLUSH PFSH Medical History Wears glasses Cancer Prostate disease High cholesterol Back pain Injury of back History of diverticulitis Gastric reflux Asthma Shortness of breath on exertion CPAP (continuous positive airway pressure) dependence Non-smoker History of edema History of stress test Cardiology follow-up encounter Hypertension Home Medications ?Medication ?Instructions ?Recorded ?Last Taken ?Type allopurinol 300 mg tablet 300 mg PO DAILY 04/13/2501/21 10:00 History ascorbic acid (vitamin C) 500 mg 1 g PO DAILY 04/13/25 05/04/25 10:00 History tablet (C-500) atorvastatin 40 mg tablet 40 mg PO QHS 04/13/25 22:00 History cholecalciferol (vitamin D3) 125 125 mcg PO DAILY 03/3005/04/25 10:00 History mcg (5,000 unit) tablet (Vitamin D3) clopidogrel 75 mg tablet 75 mg PO DAILY 04/13/2503/31 History Held on 04/25/25. Instructions: Resume on 05/02/25. cyanocobalamin (vitamin B-12) 1,000 mcg PO DAILY 04/1305/04/25 10:00 History 1,000 mcg capsule losartan 25 mg tablet 25 mg PO DAILY 04/13/2501/21 10:00 History niacinamide 500 mg tablet 500 mg PO DAILY 04/13/2501/21 10:00 History pantoprazole 40 mg tablet,delayed 40 mg PO DAILY 04/1305/04/25 10:00 History release ropinirole 1 mg tablet 1 mg PO QHS 04/13/25 22:00 History oxycodone 5 mg tablet 5 mg PO Q6H PRN pain 3 days #14 04/25/25 05/03/25 13:00 Rx tabs phenazopyridine 100 mg tablet 100 mg PO TID #20 tabs 0 04/25/25 05/04/25 10:00 Rx (Pyridium) tamsulosin 0.4 mg capsule (Flomax) 0.4 mg PO DAILY #14 caps 04/25/25 05/04/25 10:00 Rx Allergy/AdvReac Type Severity Reaction Status Date / Time sulfamethoxazole (From AdvReac Intermediate Nausea/Vom/ Verified 04/25/25 12:00 Bactrim) Diarrhea trimethoprim (From Bactrim) AdvReac Intermediate Nausea/Vom/ Verified 04/25/25 12:00 Diarrhea Surgical History History of cardiac catheterization History of esophagogastroduodenoscopy (EGD) Hx of colonoscopy History of coronary artery stent placement Social History Smoking Status: Never smoker Review of Systems (Anesthesia) ROS Narrative System reviewed and no additional complaints, except as documented. 05/05/25724 > Date _ Shankar Lujan Signature: Date CC: ~ Signed [facility]09-06-2025 Physician Emergency department Note* Gabriel Soto, DO - 05/05/2025 12:03 AM EDT Emergency Medicine Transition of Care Note. I received Ramon Costa in signout from Dr. Love. Please see the previous ED provider note for all HPI, PE and MDM up to the time of signout at 2315. This is in addition to the primary record. Go over the results with the patient including CAT scan results. I will reach out to his urologistat [facility]. Patient has been accepted to [facility] by Dr. Lam. He will be given [...] Color, Urine Dark-Yellow Appearance, Urine Clear Specific [place], Urine 1.015 pH, Urine 6.5 Protein, Urine [...] Abnormality Status --------- ------ Urinalysis with Reflex C...[[id number]] Abnormal Final result Extra Urine Johnson Tube[[id number]] Please view results for these tests on [...] Andrew Sosa 05/04/2025 11:53 PM Dictation workstation: [id number] Medical Decision Making Transfer to [facility] Final diagnoses: [N20.1] Ureteral calculus Procedure Procedures DO Gabriel Mendez DO 05/05/25 0154 [facility] Work Phone: 1(683) 920-142109-06-2025 Emergency department Note* Gabriel Soto DO - 05/05/2025 12:03 AM EDT Emergency Medicine Transition of Care Note. I received Ramon Costa in signout from Dr. Love. Please see the previous ED provider note for all HPI, PE and MDM up to the time of signout at 2315. This is in addition to the primary record. Go over the results with the patient including CAT scan results. I will reach out to his urologistat [facility]. Patient has been accepted to [facility] by Dr. Lam. He will be given [...] Color, Urine Dark-Yellow Appearance, Urine Clear Specific [place], Urine 1.015 pH, Urine 6.5 Protein, Urine [...] Abnormality Status --------- ------ Urinalysis with Reflex C...[[id number]] Abnormal Final result Extra Urine Johnson Tube[[id number]] Please view results for these tests on [...] Andrew Sosa 05/04/2025 11:53 PM Dictation workstation: [id number] Medical Decision Making Transfer to [facility] Final diagnoses: [N20.1] Ureteral calculus Procedure Procedures DO Gabriel Mendez DO 05/05/25 0154 documented in this [facility] Work Phone: 1(722) 739-948508-27-2025 Discharge summary Author Harjit Lam [facility] Note Date/Time April 25, 2025 3: 47pm [facility] Medical Records Department [address] [place] [address] Instructions for Home/Discharge Instructions 04/25/25 1547 MR#: [id number] Acct: [id number] Name: RAMON COSTA #:[id number] : 1955 69 From: Harjit [...] Up With: Harjit Lam MD When: Call [phone] for an appointment Test Results: Test results from this visit will be discussed in further detail at your follow- up appointment, if applicable. Discharge Plan Admission Primary Reason for Your Visit: ESWL Attending Provider: Harjit Lam Primary Care Provider: Jarad Rey Instructions Print Language: Bahraini Discharge Orders/Prescriptions Prescriptions: New ciprofloxacin HCl [Cipro] [...] KUB prior to appt. with me. 04/25/25 154<Electronically signed by Harjit Lam MD>Harjit Lam MD cc: Jarad Rey MD ~* Signed [facility] Work Phone: 1([phone]) 520-701508-27-2025 Consult note [facility] Medical Records Department [address] [place] [address] Anesthesia Postop Eval I 04/25/251646 MR#: [id number] Acct: [id number] Name: RAMON COSTA Rep #:[id number] : 1955 69 From: Gonzalo Saucedo CRNA PCP: Jarad Rey MD [place] [facility] Race: C Location: [place] [address] Anesthesia: Postop Eval I Current Vital Signs [...] Eval 1 completed: Yes 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> Date _ Gonzalo Saucedo CRNA Cosigner Signature: Date CC: ~ Signed [facility]08-27-2025 Procedure note [facility] Medical Records Department [address] [place] [address] Operative Report 04/25/25 1620 MR#: [id number] Acct: [id number] Name: RAMON COSTA Rep #:[id number] : 1955 69 From: Harjit Lam MD PCP: Jarad Rey MD Status:[facility] Location: [place] [address] Operative Report (Standard) Operative Information Date of Procedure: 04/25/25 Pre-Operative Diagnosis: Right kidney stones Post-Operative Diagnosis: same Surgery/Procedure Performed: Cystoscopy right stent placement and right ESWL dragline oiler: No Type of Anesthesia: General RN Documented [...] in usual sterile fashion. Using a 21 Macanese rigid cystourethroscope the entire length of the urethra was normal then went into the bladder. Identifiedthe trigone the left and right ureteral orifice. I then cannulated the right ureteral orifice and advanced a wire up into the kidney. I then backloaded a 5 Macanese open ended catheter over the wire and injected contrast todelineate the anatomy. After the retrograde was performed I then used fluoroscopic images and guidance to advanced a wire up into the kidney and over the 0.038 glidewire I advanced a 6 Macanese by 26 cm double pigtail stent. I [...] SCD's VTE Pharm Prophylaxis ordered?: No 04/25/25 8689 Cosigner Signature (if applicable): CC: Dr. Harjit Lam MD; Jarad Rey MD~ Signed [facility]08-27-2025 Discharge summary [facility] Medical Records Department [address] [place] [address] Instructions for Home/Discharge Instructions 04/25/25 1547 MR#: [id number] Acct: [id number] Name: RAMON COSTA Rep #:[id number] : [...] Up With: Harjit Lam MD When: Call [phone] for an appointment Test Results: Test results from this visit will be discussed in further detail at your follow- up appointment, if applicable. Discharge Plan Admission Primary Reason for Your Visit: ESWL Attending Provider: Harjit Lam Primary Care Provider: Jarad Rey Instructions Print Language: Bahraini Discharge Orders/Prescriptions Prescriptions: New ciprofloxacin HCl [Cipro] [...] with an KUB prior to appt. with ks. 04/25/25 1547Harjit Lam MD cc: Jarad Rey MD ~* Signed [facility]08-27-2025 Consult note Author Deolnte Israel [facility] Note Date/Time April 25, 2025 12 :41pm [facility] Medical Records Department [address] [place] [address] Pre-Anesthesia Evaluation 04/25/25 1240 MR#: [id number] Acct: [id number] Name: RAMON COSTA Rep #:[id number] : 1955 69 From: Delonte Israel MD PCP: Jarad Rey MD Status:REG SDC Y Race: C Location: [place] [address] ASA Classification* ASA Classification ASA Classification: 3 [...] INSERTION STENT Anesthesia History Anesthesia History - hammerer: Anesthesia History - hammerer Hx Hospitalization No 04/13/25 13:21 Any Problems [...] take am of surgery PONV PONV - hammerer: PONV - hammerer Female No 04/13/25 13:21 HX of Motion [...] 04/25/25 12:03 Respiratory Assessment Respiratory Assessment - hammerer: Respiratory Tract Infection Hx - hammerer Hx Respiratory Tract Infection No 04/13/25 13:21 STOP Sleep Apnea STOP Sleep Apnea - hammerer: STOP Sleep Apnea - hammerer Hx Hypertension Yes: CONTROLLED WITH MED 04/13/25 [...] Tobacco Use History Tobacco Use History - hammerer: Tobacco Use History - hammerer Tobacco Use Smoking Status Never smoker 04/13/25 13:21 Hx Tobacco Use No 04/13/25 13:21 Years Smoking Packs Smoked per Day Smoking Cessation Date was within the last 15 years Hx Smoking Cessation Date Hx Smoking Cessation Counseling Hematologic Medial History Hematologic Hx - hammerer: 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 [address] Pre-Anesthesia Evaluation 04/25/25 1240 MR#: [id number] Acct: [id number] Name: RAMON COSTA Rep #:[id number] : 1955 69 From: Delonte Israel MD PCP: Jarad Rey MD Status:[place] [facility] [place] Race: C Location: [place] [address] ASA Classification* ASA Classification ASA Classification: 3 [...] INSERTION STENT Anesthesia History Anesthesia History - hammerer: Anesthesia History - hammerer Hx Hospitalization No 04/13/25 13:21 Any Problems [...] take am of surgery PONV PONV - hammerer: PONV - hammerer Female No 04/13/25 13:21 HX of Motion [...] 04/25/25 12:03 Respiratory Assessment Respiratory Assessment - hammerer: Respiratory Tract Infection Hx - hammerer Hx Respiratory Tract Infection No 04/13/25 13:21 STOP Sleep Apnea STOP Sleep Apnea - hammerer: STOP Sleep Apnea - hammerer Hx Hypertension Yes: CONTROLLED WITH MED 04/13/25 [...] Tobacco Use History Tobacco Use History - hammerer: Tobacco Use History - hammerer Tobacco Use Smoking Status Never smoker 04/13/25 13:21 Hx Tobacco Use No 04/13/25 13:21 Years Smoking Packs Smoked per Day Smoking Cessation Date was within the last 15 years Hx Smoking Cessation Date Hx Smoking Cessation Counseling Hematologic Medial History Hematologic Hx - hammerer: 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 04/25/25 1241 D> Date _ Delonte Lujan Signature: Date CC: ~ Signed [facility]08-14-2025 Radiology Diagnostic study note [facility] Imaging Services [address] [place], [place] [address] Abdomen Single View MR#: [id number] Acct: [id number] Name: RAMON COSTA Rep #: [id number] : 1955 M 69 From: La Guerrero MD PCP: Jarad Rey MD Status: REG CLI Study:Abdomen Single View Date of Exam: 04/10/25 Exam# [id number] Ordering Dr: Melba Barr PROCEDURE: ABDOMEN SINGLE [...] Bony structures show degenerative change Reading Location: [id number] CC: Jarad Rey MD; Melba Barr ~ Flow Floor Attendant: Signed [facility]07-27-2025 Physician Emergency department Note* Zak Alvarez MD [...] Light-Brown (*) Appearance, Urine Turbid (*) Specific [place], Urine 1.012 pH, Urine 6.5 Protein, Urine [...] Abnormality Status --------- ------ Urinalysis with Reflex C...[[id number]] Abnormal Final result Extra Urine Johnson Tube[[id number]] Please view results for these tests on [...] Maykel Ruano 03/25/2025 10:47 PM Dictation workstation: [id number] Procedures Medical Decision Making 69-year-old male history [...] UTI, pyelonephritis, ureterolithiasis, prostatitis Diagnoses as of 03/25/252333 Hemorrhagic cystitis Zak Alvarez MD 03/25/252333 [facility] Work Phone: 1(153) 469-528907-27-2025 Emergency department Note* Zak Alvarez MD - [...] Light-Brown (*) Appearance, Urine Turbid (*) Specific [place], Urine 1.012 pH, Urine 6.5 Protein, Urine [...] Abnormality Status --------- ------ Urinalysis with Reflex C...[[id number]] Abnormal Final result Extra Urine Johnson Tube[[id number]] Please view results for these tests on [...] Maykel Ruano 03/25/2025 10:47 PM Dictation workstation: [id number] Procedures Medical Decision Making 69-year-old male history [...] 03/25/25 2334 documented in this [facility] Work Phone: 1(991) 563-699001-15-2025 History of Present illness Narrative* Isabela Bazan [...] and BMP and PSA [facility]: 1(569) 327-553806-26-2024 History of Present illness Narrative* Isabela Bazan [...] months with KUB [facility] Phone: 1([phone]) 496-509304-18-2024 History of Present illness Narrative* Isabela Bazan [...] with KUB documented in this [facility] Work Phone: 1([phone]) 170-982003-18-2024 History of Present illness Narrative* Isabela Bazan [...] a Hx of renal cyst . PSA 2/24 was 1.98 Review of Systems Constitutional: Negative [...] to keep PVR log [facility] Work Phone: 1(386) 314-839203-13-2024 History of Present illness Narrative* Isabela Bazan [...] and chills also last week. Was in [facility] ER last night and had a yan [...] 1 week documented in this [facility] Work Phone: 1([phone]) 629-576803-12-2024 Emergency department Note* Karen Fischer PA-C - [...] Urine Yellow Appearance, Urine Hazy (*) Specific [place], Urine 1.015 pH, Urine 6.0 Protein, Urine [...] Abnormality Status --------- ------ Urinalysis with Reflex C...[[id number]] Abnormal Final result Extra Urine Johnson Tube[[id number]] Please view results for these tests on [...] times daily. First dose given in the [facility] room along with Pyridium. Patient is also [...] PA-C 11/09/232024 documented in this [facility] Work Phone: 1([phone]) [phone] Physician Emergency department Note* Karen Fischer PA-C [...] Urine Yellow Appearance, Urine Hazy (*) Specific [place], Urine 1.015 pH, Urine 6.0 Protein, Urine [...] Abnormality Status --------- ------ Urinalysis with Reflex C...[[id number]] Abnormal Final result Extra Urine Johnson Tube[[id number]] Please view results for these tests on [...] times daily. [facility]. Patient is also [...] site unspecified Karen Fischer PA-C 11/09/232024 [facility] Work Phone: 1([phone]) 325-355003-12-2024 Reason for referral (narrative)* Consultation (Routine) - Authorized Specialty Diagnoses / Procedures Referred By Roxanne pearson Referred To Contact Urology Karen Fischer PA-C [address] [place] [address] [place] [address] Referral ID Status Reason Start Date Expiration Date Visits Requested Visits Authorized [id number] Authorized Specialty Services Required 11/09/2023 11/08/2024 1 1 [facility] Work Phone: 1(236) 677-559903-11-2024 History of Present illness Narrative* Isabela Bazan [...] for PVR check Virtual documented in this [facility] Work Phone: [phone] [id number] History of Present illness Narrative* Yaneth Funez [...] 6 MONTHS WITH KUB documented in this [facility] Work Phone: [phone] 161-392502-08-2024 History of Present illness Narrative* Isabela Bazan [...] and KUB and Cysto [facility]: [phone] 515-938711-10-2021 History of Present illness Narrative* Initial Fall [...] patient is not using an assistive device. [facility] Work Phone: 1(664) 401-982107-01-2021 History of Present illness Narrative* Diamond Shah RN - 02/27/2021 9:59 AM EDT Reviewed history, allergies, and medications. Patient held his home medications prior to testing. Consent confirmed. Lexiscan exam explained. Placed patient on monitor. @ 1003 plasma center technician here to inject Lexiscan. SOB noted during recovery phase. Denied chest pain.Few pvc's noted. Patient off monitor and instructed to eat, will have last part of exam in 1 hour. documented in this [facility] [employer] Phone: 1(840) 924-198806-21-2021 Hospital Discharge instructions* Instructions* Oscar Dickens MD - 02/17/2021 ICE AFFECTED AREA. WRAP FOR SUPPORT. RETURN FOR NEW OR WORSENING SYMPTOMS. * Attachments The following attachments cannot be sent through Care Everywhere. * Hand Pain (Bahraini) documented in this [facility] [employer] Phone: [phone]) 324-576510-12-2015 Telephone encounter Note* Telephone Encounter - Anita Hernandez LPN - 06/10/2015 8:[address] Barreto pt [id number] Miscellaneous Notes* Telephone Encounter - Anita Hernandez LPN - 06/10/2015 8:[address] Barreto pt documented in this [id number] Telephone encounter Note* Telephone Encounter - Nina Cameron LPN - 06/04/2015 3:42 PM EDT Med list updated [id number] Miscellaneous Notes* Telephone Encounter - Nina Cameron LPN - 06/04/2015 3:42 PM EDT Med list updated * Telephone Encounter - Briana Gan CNP - 06/03/2015 3:43 PM EDT No med list available documented in this [id number] Telephone encounter Note* Telephone Encounter - Briana Gan CNP - 06/03/2015 3:43 PM EDT No med list available [employer] Work Phone: Consult note Author Gonzalo Saucedo [facility] Note Date/Time April 25, 2025 4: 48pm [facility] Medical Records Department [address] [place] [address] Anesthesia Postop Eval I 04/25/251646 MR#: [id number] Acct: [id number] Name: RAMON COSTA Rep #:[id number] : 1955 69 From: Gonzalo Saucedo CRNA PCP: Jarad Rey MD Status:[facility] Y Race: C Location: [place] [address] Anesthesia: Postop Eval I Current Vital Signs [...] Anesthesia document: Postop Eval 1 completed: Yes 04/25/251647 <Electronically signed by Gonzalo mccain CRNA> Date _ Gonzalo Saucedo CRNA Cosigner Signature: Date CC: ~ Signed [facility] Work Phone: Evaluation note* Diagnosis Right hand pain- Primary Pain in limb [facility]* Diagnosis THURMAN (dyspnea on exertion) Other dyspnea and respiratory abnormality documented in this encounter [employer] Phone: evaluation note* Diagnosis Annual physical exam Routine general medical examination at a health care facility Prostate cancer screening Special screening for malignant neoplasm of prostate documented in this encounter [employer] Phone: evaluation note* Diagnosis Multiple thyroid nodules Nontoxic multinodular goiter documented in this encounter [employer] Phone: evaluation note* Diagnosis SOB (shortness of breath) Shortness of breath documented in this encounter [employer] Phone: evaluation note* Diagnosis SOB (shortness of breath) Shortness of breath documented in this encounter [facility] [employer] Phone: evalefyjfq note* Diagnosis Benign prostatic hyperplasia with lower urinary tract symptoms, symptom details unspecified Nocturia History of kidney stones documented in this encounter [facility] Work Phone: [phone] note* Diagnosis History of kidney stones documented in this encounter [facility] Work Phone: [phone] note* Diagnosis Hematuria, unspecified type- Primary documented in this encounter [facility] Work Phone: [phone] note* Diagnosis Nocturia Benign prostatic hyperplasia with lower urinary tract symptoms, symptom details unspecified History of kidney stones Dysuria documented in this encounter [facility] [employer] Phone: [phone] note* Diagnosis Urinary retention- Primary Unspecified retention of urine Urinary tract infection with hematuria, site unspecified Nocturia Dysuria Benign prostatic hyperplasia with lower urinary tract symptoms, symptom details unspecified documented in this encounter [employer] [facility] [employer] Phone: [phone] note* Diagnosis Nocturia Dysuria Benign prostatic hyperplasia with lower urinary tract symptoms, symptom details unspecified documented in this encounter [facility] [employer] Phone: [phone] note* Diagnosis Benign prostatic hyperplasia with lower urinary tract symptoms, symptom details unspecified Dysuria History of kidney stones Nocturia Retention of urine Unspecified retention of urine documented in this encounter [facility] Work Phone: Evaluation note* Diagnosis History of kidney stones Nocturia Benign prostatic hyperplasia with lower urinary tract symptoms, symptom details unspecified documented in this encounter [facility] Work Phone: Evaluation note* Diagnosis Encounter [...] in Medicare patient documented in this encounter [facility] note* Diagnosis History of kidney stones documented in this encounter [facility] Work Phone: Evaluation note* Diagnosis Benign prostatic hyperplasia with lower urinary tract symptoms, symptom details unspecified- Primary History of kidney stones Nocturia History of kidney stones documented in this encounter [facility] Work Phone: Evaluation note* Diagnosis History of kidney stones Benign prostatic hyperplasia with lower urinary tract symptoms, symptom details unspecified Nocturia documented in this encounter [facility] Work Phone: Evaluation note* Diagnosis Hemorrhagic cystitis- Primary Unspecified cystitis documented in this encounter [facility] Work Phone: Evaluation note* Diagnosis Encounter [...] Cholesterolosis of gallbladder documented in this encounter [facility] noteNo assessment information available [facility] Work Phone: Evaluation note* Diagnosis Ureteral calculus- Primary Calculus of ureter documented in this encounter [facility] Work Phone: Hospital Discharge instructions* Instructions* [...] sent through Care Everywhere. * Colonoscopy: Post-op ([place]) [facility] Discharge [facility]* Attachments The following attachments cannot be sent through Care Everywhere. * Urinary Tract Infection, Adult ED (Bahraini) * Yan Catheter ([place]raini) [facility]: Hospital Discharge instructions* Attachments The following attachments cannot be sent through Care Everywhere. * Acute Cystitis Discharge Instructions ([place]raini) [facility] Work Phone: Reqmsi for referral (narrative)No reason for referral information [facility] Work Phone: Reason for visit Narrative* Imaging (Routine) - Authorized Specialty Diagnoses / Procedures Referred By Roxanne pearson Referred To Contact Radiology Diagnoses History of kidney stones Procedures XR abdomen 1 view Isabela Bazan MD [address] [place] [address] Phone: tel: fax: Referral ID Status Reason Start Date Expiration Date Visits Requested Visits Authorized [id number] Authorized Perform Procedure 4 07/25/2025 1 1 [facility] Work Phone: Retyfb for visit Narrative* Imaging (Routine) - Pending Review Specialty Diagnoses / Procedures Referred By Roxanne pearson Referred To Contact Radiology Diagnoses Gallbladder polyp Procedures US GALLBLADDER RUQ Kaylynn Ashton MD [address] [address] Phone: tel: fax: Referral ID Status Reason Start Date Expiration Date V isits Requested Visits Authorized [id number] Pending Review 04/26/2025 04/26/2026 1 1 [facility] Assessments Diagnosis Bradycardia Other specified cardiac dysrhythmias Coronary artery disease invo [place]ving [place] coronary artery of [place] heart without angina pectoris Dyslipidemia Other and [...] FoundNo Family History Records Found Advance Directives No Advanced Directives Records FoundDocuments on File Type Date Recorded Patient Rectifying Attendant Expl anation Advance Directives and Living Will Power of Triage Technician Latest Code Status on File Code Status Date Activated Date Inactivated Comments Full Code 03/28/2018 5:49 PM 03/28/2018 8:48 PM Full Code 03/28/2018 11:18 AM 03/28/2018 1:58 PM Documents on File Type Date Recorded Patient Rectifying Attendant Expl anation ACP-Advance Directive ACP-Power of Triage Technician Latest Code Status on File Code Status Date Activated Date Inactivated Comments Full Code 03/28/2018 5:49 PM 03/28/2018 8:48 PM Full Code 03/28/2018 11:18 AM 03/28/2018 1:58 PM Documents on File Type Date Recorded Patient Rectifying Attendant Expl anation Advance Directives and Living Will Power of Triage Technician Documents on File Type Date Recorded Patient Rectifying Attendant Expl anation ACP-Advance Directive ACP-Power of Triage Technician Healthcare Agents on File Name Relationship Healthcare Agent Relationshi p Communication Jeanne Costa Spouse Primary Decision Maker Healthcare Agents on File Name Relationship Healthcare Agent Relationshi p Communication Jeanne Costa Spouse Primary Decision Maker Healthcare Agents on File Name Relationship Healthcare Agent Relationshi p Communication Jeanne Costa Spouse Primary Decision Maker [email or web address] Date Activated Date Inactivated Comments 08/17/2023 10:27 AM 08/17/2023 2:59 PM Date Activated Date Inactivated Comments 03/28/2018 5:49 PM 03/28/2018 8:48 PM Date Activated Date Inactivated Comments 03/28/2018 11:18 AM 03/28/2018 1:58 PM Healthcare Agents on File Name Relationship Healthcare Agent Relationshi p Communication Jeanne Costa Spouse Primary Decision Maker [email or web address] Date Activated Date Inactivated Comments 08/17/2023 10:27 AM 08/17/2023 2:59 PM Date Activated Date Inactivated Comments 03/28/2018 5:49 PM 03/28/2018 8:48 PM Date Activated Date Inactivated Comments 03/28/2018 11:18 AM 03/28/2018 1:58 PM Healthcare Agents on File Name Relationship Healthcare Agent Relationshi p Communication Jeanne Costa Spouse Primary Decision Maker [email or web address] Advance Directive Response Recorded Date/ Time Do you have a Healthcare Power of Triage Technician? Yes April 13, 2025 1:21pm Advance Directive Response Recorded Date/ Time Do you have a Healthcare Power of Triage Technician? Yes April 13, 2025 1:21pm Do you have a Healthcare Power of Triage Technician? Yes May 05, 2025 4:33am Name of Medical Power of Triage Technician Brittani Molina May 05, 2025 4:33am Reason for Referral Status Reason Specialty Diagnoses / Procedures Referred By Contact Referred To Contact Pending Review Cardiology Diagnoses PVC (premature ventricular contraction) Procedures Holter monitor 24 hour Brain Freedman MD [address] [facility] [address] [place] [address] Status Reason Specialty Diagnoses / Procedures Referre d By Contact Referred To Contact Closed Cardiology Diagnoses THURMAN (dyspnea on exertion) Procedures ECHO Complete 2D W Doppler W Color Justin Espinoza MD [address] [address] Status Reason Specialty Diagnoses / Procedures Referre d By Contact Referred To Contact Closed Radiology Diagnoses THURMAN (dyspnea on exertion) Procedures NM MYOCARDIAL SPECT REST EXERCISE OR RX Justin Espinoza MD [address] [facility] [address] [place] [address] Specialty Diagnoses / Procedures Referred By Contac t Referred To Contact Radiology Diagnoses History of kidney stones Procedures XR abdomen 1 view Isabela Bazan MD [address] [place] [address] Referral ID Status Reason Start Date Expiration Date Visits Requested Visits Authorized [id number] Authorized Perform Procedure 10/07/2023 10/06/2024 1 1 Specialty Diagnoses / Procedures Referred By Contac t Referred To Contact Radiology Diagnoses History of kidney stones Procedures XR abdomen 1 view Isabela Bazan MD [facility][note 3][address] [place] [address] [facility] [address] [facility] [address] [place] [address] Specialty Diagnoses / Procedures Referred By Contac t Referred To Contact Diagnoses History of kidney stones Isabela Bazan MD [address] [place] [address] Referral ID Status Reason Start Date Expiration Date V isits Requested Visits Authorized [id number] Pending Review 1 1 Referral ID Status Reason Start Date Expiration Date Visits Requested Visits Authorized [id number] Authorized Perform Procedure 02/23/2024 02/22/2025 1 1 Referral ID Status Reason Start Date Expiration Date Visits Requested Visits Authorized [id number] Authorized Perform Procedure 02/23/2024 02/22/2025 1 1 Chief Complaint and Reason for Visit Chief Complaint Admit Date ESWL,Cystocopy Insertion Stent April 252024 10:55am Reason for Visit Admit Date Calculus of kidney May 05, 2025 9:48am Additional Source Comments (unrecognized sect ion and [...] section and content) DATE CREATED AUTHOR 02/22/2018 [facility] DATE CREATED AUTHOR AUTHOR'S ORGANIZ ATION 04/11/2018 [facility] DATE CREATED AUTHOR AUTHOR'S ORGANIZ ATION 05/07/2018 [facility] DATE CREATED AUTHOR AUTHOR'S ORGANIZ ATION 06/09/[address] [facility] DATE CREATED AUTHOR AUTHOR'S ORGANIZ ATION 06/14/2018 [facility] DATE CREATED AUTHOR AUTHOR'S ORGANIZ ATION 06/14/2018 [employer] DATE CREATED AUTHOR AUTHOR'S ORGANIZ ATION 06/21/2018 [facility] DATE CREATED AUTHOR AUTHOR'S ORGANIZ ATION 01/05/2023 [facility] DATE CREATED AUTHOR AUTHOR'S ORGANIZ ATION 08/20/2023 [facility] DATE CREATED AUTHOR AUTHOR'S ORGANIZ ATION 09/19/2023 [facility] DATE CREATED AUTHOR AUTHOR'S ORGANIZ ATION 11/13/2023 [facility] DATE CREATED AUTHOR AUTHOR'S ORGANIZ ATION 09/16/2024 [facility] DATE CREATED AUTHOR AUTHOR'S ORGANIZ ATION 04/13/2025 [facility] DATE CREATED AUTHOR AUTHOR'S ORGANIZ ATION 05/10/2025 [facility] DATE CREATED AUTHOR AUTHOR'S ORGANIZ ATION 05/11/2025 [facility] Reason for Visit (unrecogniz ed section and content) Status Reason Specialty Diagnoses / Procedures Referred By Contact Referred To Contact Pending Review Cardiology Diagnoses PVC (premature ventricular contraction) Procedures Holter monitor 24 hour Brain Freedman MD [address] [facility] [address] [place] [address] Status Reason Specialty Diagnoses / Procedures Referre d By Contact Referred To Contact Open EKG Diagnoses Ventricular premature depolarization Procedures HOLTER MONITOR Brain Freedman MD [address] [facility] [address] [place] [address] [facility] [address] [place] [address] Reason Comments Hand Injury right hand pain and swelling x1hr s/p fall while playing basketball. motor and sensation intact, some numbness. On plavix. Status Reason Specialty Diagnoses / Procedures Referre d By Contact Referred To Contact Closed Radiology Diagnoses THURMAN (dyspnea on exertion) Procedures NM MYOCARDIAL SPECT [place] [address] [place] [address] Status Reason Specialty Diagnoses / Procedures Referre d By Contact Referred To Contact Closed Cardiology Diagnoses THURMAN (dyspnea on exertion) Procedures ECHO Complete 2D [place] [address] [place] [address] Status Reason Specialty Diagnoses / Procedures Referre d By Contact Referred To Contact Diagnoses Personal history of colonic polyps HISTORY OF COLON POLYPS Procedures [place] COLONOSCOPY FLX DX W/COLLJ SPEC WHEN PFRMD COLONOSCOPY Familia Oliva MD [address] [place] [address] [facility] Reason Comments Medication Refill Reason Comments Establish Care Specialty Diagnoses / Procedures Referred By Roxanne pearson Referred To Contact Radiology Diagnoses History of kidney stones Procedures XR abdomen 1 view Isabela Bazan MD [address] [place] [address] [facility] [address] [address] Referral ID Status Reason Start Date Expiration Date Visits Requested Visits Authorized [id number] Authorized Perform Procedure 10/07/2023 10/06/2024 1 1 Reason Comments Blood in Urine Reason Comments Difficulty Urinating C/o difficulty urin ating x 5 days. Also c/o constipation x 3 days. Reason Comments Difficulty Urinating Reason Comments 1 week follow up Specialty Diagnoses / Procedures Referred By Roxanne pearson Referred To Contact Radiology Diagnoses History of kidney stones Procedures XR abdomen 1 view Isabela Bazan MD [address] [place] [address] Referral ID Status Reason Start Date Expiration Date Visits Requested Visits Authorized [id number] Authorized Perform Procedure 02/23/2024 02/22/2025 1 1 [...] Care Teams (unrecognized sec tion and content) [employer] Super[employer] Relationship Specialty Start Date End Date Jarad Rey MD [address] [place] [address] PCP - General Family Medicine 01/13/18 [employer] Super[employer] Relationship Specialty Start Date End Date Jarad Rey MD [address] [place] [address] PCP - General Family Medicine 01/13/18 [employer] Supervisor Relationship Specialty Start Date End Date Jarad Rey MD [address] [place] [address] PCP - General Family Medicine 01/13/18 [employer] Supervisor Relationship Specialty Start Date End Date Aramis Beaulieu MD [address] [place] [address] PCP - General 12/12/12 [employer] Supervisor Relationship Specialty Start Date End Date Aramis Beaulieu MD [address] [place] [address] PCP - General 12/12/12 [employer] Supervisor Relationship Specialty Start Date End Date Jarad Rey MD [address] [place] [address] PCP - General 08/30/17 [employer] Supervisor Relationship Specialty Start Date End Date Jarad Rey MD [address] [place] [address] PCP - General 08/30/17 [employer] Supervisor Relationship Specialty Start Date End Date Jarad Rey MD [address] [place] [address] PCP - General 08/30/17 [employer] Supervisor Relationship Specialty Start Date End Date Jarad Rey MD [address] [place] [address] PCP - General 08/30/17 [employer] Supervisor Relationship Specialty Start Date End Date Jarad Rey MD [address] [place] [address] PCP - General 08/30/17 [employer] Supervisor Relationship Specialty Start Date End Date Jarad Rey MD [address] [place] [address] PCP - General 08/30/17 [employer] Supervisor Relationship Specialty Start Date End Date Jarad Rey MD [address] [place] [address] PCP - General 08/30/17 [employer] Supervisor Relationship Specialty Start Date End Date Jarad Rey MD [address] [place] [address] PCP - General 08/30/17 [employer] Supervisor Relationship Specialty Start Date End Date Jarad Rey MD [address] [place] [address] PCP - General Family Medicine 01/13/18 [employer] Supervisor Relationship Specialty Start Date End Date Jarad Rey MD [address] [place] [address] PCP - General 08/30/17 [employer] Supervisor Relationship Specialty Start Date End Date Jarad Rey MD [address] [place] [address] PCP - General 08/30/17 [employer] Supervisor Relationship Specialty Start Date End Date Jarad Rey MD [address] [place] [address] PCP - General 08/30/17 [employer] Supervisor Relationship Specialty Start Date End Date Jarad Rey MD [address] [place] [address] PCP - General 08/30/17 [employer] Supervisor Relationship Specialty Start Date End Date Jarad Rey MD [address] [place] [address] PCP - General Family Medicine 01/13/18 Team Status: Active Member Role/Relationship Status Dates Dr. Jarad Rey MD Primary Care Provider Active Team Status: Inactive Member Role/Relationship Status Dates Dr. Jarad Rey MD Primary Care Provider Active Start: April 10, 2025 End: April 10, 2025 Melba Barr Attending Provider Active Start : April 10, 2025 End: April 10, 2025 Melba Felipeing Referring Provider Active Start : April 10, [...] April 25, 2025 End: April 25, 2025 [employer] Supervisor Relationship Specialty Start Date End Date Jarad Rey MD [address] [place] [address] PCP - General 08/30/17 Team Status: Inactive Member Role/Relationship Status Dates Dr. Jarad Rey MD Primary Care Provider Active Start: May 05, 2025 End: May 06, 2025 Dr. Harjit aLm MD Admit Provider Active Start: May 05, 2025 End: May 06, 2025 Dr. Harjit Lam MD Attending Provider Active Start: May 05, 2025 End: May 06, 2025 Scheduled Active and Recently Administ ered Medications [...] mg (COMPLETED) 200 mg, oral, Once, On Wed11/09/23 at 2019, For 1 dose, May discolor [...] Infection 2338 (New Bag - Provider: Miko Pickworth, RN) 0041 (Stopped - Provider: Miko Marquez RN) sodium chloride 0.9 % bolus 1,000 mL (COMPLETED) 1,000 mL, intravenous, at 999 mL/hr, Administer over 1 Hours, Once, On Wed03/25/25 at 2150, For 1 dose 2203 (New Bag - Provider: Mitchell Pete RN)2312 (Stopped - Provider: Miko Marquez, RN) Scheduled Medication Order 05/03/2025 05/04/2025 05/05/2025 iohexol [...] 0102 (New Bag - Provider: Mitchell Pete RN)021 (Stopped - Provider: Yvette Fraser RN) morphine injection 4 mg (COMPLETED) 4 mg, intravenous, Once, On Wed05/04/25 at 2210, For 1 dose 2230 (Given - Provider: Yvette Fraser RN) morphine [...] On Wed05/04/25 at 2210, For 1 dose 2230 (New Bag - Provider: Yvette Fraser RN) [...] BE BASED ON THE PRIMARY CLINICAL RECORDS. [employer] provides no warranty or guarantee of the accuracy or completeness of information in this document.
[2025-05-12 11:38] VITALS: BP 137/59; PULSE 79; RESP 16; TEMP 36.1; O2SAT 100
== END 2025-05-12 11:39 | disposition home or self-care (01) ==
PROVIDERS: Emergency Provider Emergency Medicine; PCP Family Medicine; Visit Provider Emergency Medicine
DX: R33.9 Retention of urine, unspecified (principal); Z95.5 Presence of coronary angioplasty implant and graft
CPT/HCPCS: 51702; 81001; 87086; 99283

== ENCOUNTER 2025-08-05 09:32 | Emergency (ER) | payer MEDICARE, BC, SELFPAY ==
[2025-08-05 09:33] VITALS: BP 147/78; PULSE 55; RESP 16; TEMP 36.8; O2SAT 99; BMI 35.8
--- NOTE | 2025-08-05 09:47 | CT_ITS ---
PROCEDURE: ABDOMEN/PELVIS WITHOUT CONT 08/05/2025 REASON FOR EXAM: RIGHT FLANK PAIN TECHNIQUE: Procedure Code: CTABDPEL Modality: CT Procedure: ABDOMEN/PELVIS WITHOUT CONT Noncontrast technique limits evaluation of the abdominal and pelvic viscera. Coronal and Sagittal reconstruction series were provided. One or more dose reduction techniques were used (e.g., Automated exposure control, adjustment of the mA and/or kV according to patient size, use of iterative reconstruction technique). RADIATION DOSE SUMMARY: CTDlvol: 20.32 mGy DLP: 1035.5 mGycm COMPARISON: None. FINDINGS: Lung bases: Clear. Atherosclerotic calcifications of the coronary arteries. Liver: Liver steatosis. Gallbladder: Cholelithiasis. No biliary dilation. Spleen: Unremarkable. Pancreas: Unremarkable. Adrenals: Unremarkable. Kidneys: Bilateral simple kidney cysts with the largest measures 6.3 cm at the lower pole of the right kidney. Bilateral kidney stones with the largest measures 7 mm at the lower pole of the left kidney. Bladder: Unremarkable. Reproductive Organs: Unremarkable. Bowel: Colonic diverticulosis with no evidence of acute diverticulitis. No bowel obstruction. Appendix: Unremarkable. Lymph nodes: No lymphadenopathy. Vasculature: No aneurysm. Peritoneum / Retroperitoneum: No free air or free fluid. Bones: No acute bony abnormalities. Limited study due to lack of IV and oral contrast. CT/Abdomen/Pelvis without Cont IMPRESSION: Bilateral kidney stones with the largest measures 7 mm at the lower pole of the left kidney. No hydronephrosis. Cholelithiasis. Colonic diverticulosis with no evidence of acute diverticulitis. Reading Location: [id number]
--- NOTE | 2025-08-05 09:47 | EX.ED.DYSGE1 ---
HPI History of Present Illness Chief Complaint: Flank Pain Informant: patient Onset/Context/Timing Onset: Days (5) Context: Sudden Onset Timing: Continuous and Waxes and wanes Quality: Aching but sharp at times Location: Right flank and back Worsened by: Nothing Relieved by: Analgesic medication Narrative Narrative: Patient presents with back pain and flank pain that has been getting worse over the past 5 days. Patient states it began rather suddenly. Patient states it is constant aching but sharp at times. Patient states it is mainly on the right side. Patient states he took analgesic pain medication at home with some relief. Patient admits to some nausea and vomiting. Patient denies any dysuria or hematuria. Patient denies any fevers or chills. [facility] Medical History Wears glasses Cancer Prostate disease High cholesterol Back pain Injury of back History of diverticulitis Gastric reflux Asthma Shortness of breath on exertion CPAP (continuous positive airway pressure) dependence Non-smoker History of edema History of stress test Cardiology follow-up encounter Hypertension Home Medications ?Medication ?Instructions ?Recorded ?Last Taken ?Type allopurinol 300 mg tablet 300 mg PO DAILY 04/13/25 08/04/25 History ascorbic acid (vitamin C) 500 mg 1 g PO DAILY 04/13/25 08/04/25 History tablet (C-500) atorvastatin 40 mg tablet 40 mg PO QHS 04/13/25 08/04/25 History cholecalciferol (vitamin D3) 125 125 mcg PO DAILY 04/13/25 08/04/25 History mcg (5,000 unit) tablet (Vitamin D3) clopidogrel 75 mg tablet 75 mg PO DAILY 04/13/25 08/04/25 History cyanocobalamin (vitamin B-12) 1,000 mcg PO DAILY 04/13/25 08/04/25 History 1,000 mcg capsule losartan 25 mg tablet 25 mg PO DAILY 04/13/25 08/04/25 History pantoprazole 40 mg tablet,delayed 40 mg PO DAILY 04/13/25 08/04/25 History release ropinirole 1 mg tablet 1 mg PO QHS 04/13/25 08/04/25 History hydrocodone-acetaminophen 5-325mg 1 tab PO Q6H PRN PRN Pain 3 days 08/05/25 Unknown Rx 5mg-325mg #10 TABLETS nitroglycerin 0.4 mg sublingual 0.4 mg sublingual Q5M PRN chest 08/05/25 Unknown History tablet pain Allergy/AdvReac Type Severity Reaction Status Date / Time sulfamethoxazole (From AdvReac Intermediate Nausea/Vom/ Verified 08/05/25 09:35 Bactrim) Diarrhea trimethoprim (From Bactrim) AdvReac Intermediate Nausea/Vom/ Verified 08/05/25 09:35 Diarrhea Surgical History History of cardiac catheterization History of esophagogastroduodenoscopy (EGD) Hx of colonoscopy History of coronary artery stent placement Social History Smoking Status: Never smoker ROS ROS ED Constitutional Constitutional ED: Denies chills or fever(s) Eyes Eyes: Denies blurry vision or change in vision ENT ENT ED: Reports rhinorrhea; Denies sore throat Cardiovascular Cardiovascular: Denies chest pain or palpitations Respiratory/Chest Respiratory/Chest: Denies cough or dyspnea Gastrointestinal Gastrointestinal: Reports nausea and vomiting Genitourinary Genitourinary ED: Denies dysuria or hematuria Musculoskeletal Musculoskeletal: Reports back pain; Denies neck pain Integumentary Denies abscess or rash Neurologic Neurologic: Denies headache(s) or weakness Allergic/Immunologic Allergic/Immunologic ED: Denies mouth swelling or urticaria EXAM Physical Exam Const Vital Signs: 08/05/25 09:33 Temperature 98.2 F Temperature Source Oral Pulse Rate 55 L Respiratory Rate 16 Blood Pressure 147/78 H Blood Pressure Mean 101 Pulse Ox 99 Oxygen Delivery Method Room Air Positive well nourished and well developed General Appearance ED: well developed and NAD HEENT Reports moist mucous membranes Neck supple and no JVD Resp normal respiratory effort and clear to auscultation bilaterally Cardio regular rate and regular rhythm GI non-distended Palpation: soft and tender RLQ and RUQ; Negative for guarding or rebound tenderness present Back/Spine General Back: CVA tenderness right (Mild) Neuro oriented x3, CN's II-XII intact bilaterally and no sensory deficits noted Sensorium / Orientation: alert Motor Exam: strength 5/5 throughout Psych mental status grossly normal MDM MDM MDM Narrative Medical decision making narrative: Differential diagnosis includes ureteral calculus, pyelonephritis, appendicitis, electrolyte abnormality, dehydration, colitis, and diverticulitis. CT scan of the abdomen and pelvis will be obtained to assess for ureteral calculus, pyelonephritis, colitis, diverticulitis. CBC will be obtained to assess for leukocytosis and anemia. Basic metabolic profile will be obtained to assess for electrolyte abnormality and renal function. Urinalysis will be obtained to assess for urinary tract infection and hematuria. History & Record Review Additional record(s) reviewed:: Prior outpatient record, Prior ED visit and Prior labs Lab Data Attestation: I reviewed the patient's lab results. Lab results narrative: CBC was reviewed and was within normal limits. Basic metabolic profile was reviewed and was within normal limits. Urinalysis was reviewed. There is no evidence of urinary tract infection or hematuria. Labs: Laboratory Results - last 24 hr 08/05/25 10:23 WBC 8.0 RBC 5.21 Hgb 16.2 Hct 47.0 MCV 90.2 MCH 31.1 MCHC 34.5 RDW Std Deviation 45.8 H RDW Coeff of Sarah 13.8 Plt Count 204 MPV 8.2 Immature Gran % (Auto) 0.300 Neut % (Auto) 65.7 Lymph % (Auto) 25.4 Petroleum % (Auto) 7.2 Eos % (Auto) 1.0 Baso % (Auto) 0.4 Absolute Neuts (auto) 5.2 Absolute Lymphs (auto) 2.02 Nucleated RBC % 0 Sodium 139 Potassium 3.5 Chloride 103 Carbon Dioxide 26.0 Anion Gap 10 BUN 12 Creatinine 1.03 Estim Creat Clear Calc 83.91 Est GFR (MDRD) Non-Af 79 BUN/Creatinine Ratio 12.0 Glucose 98 Calcium 9.4 Urine Color Yellow Urine Clarity Clear Urine pH 7.0 Ur Specific Foley 1.010 Urine Protein Negative Urine Glucose (UA) Normal Urine Ketones Negative Urine Occult Blood Negative Urine Nitrite Negative Urine Bilirubin Negative Urine Urobilinogen Normal Ur Leukocyte Esterase Negative Urine RBC 0 SEEN Urine WBC 0 SEEN Ur Squamous Epith Cells 0 SEEN Urine Bacteria 0 SEEN Urine Mucus 0 SEEN Radiography Diagnostic Testing: Clinical Impression(s) from Imaging Studies Abdomen/Pelvis CT 08/05/25 09:47 IMPRESSION: Bilateral kidney stones with the largest measures 7 mm at the lower pole of the left kidney. No hydronephrosis. Cholelithiasis. Colonic diverticulosis with no evidence of acute diverticulitis. Reading Location: [facility] CT scan of the abdomen and pelvis was obtained. There are bilateral renal calculi. There are no ureteral calculi. There is no hydronephrosis. There is cholelithiasis but no evidence of cholecystitis. There is diverticulosis but no evidence of diverticulitis. This was interpreted by the radiologist. I also independently reviewed the images and did not see any evidence of ureteral calculus or pyelonephritis. Treatment and Re-Evaluation :: Patient was given IV fluids, morphine, and Zofran. Patient was feeling somewhat better on reevaluation. Patient states his pain was starting to return. Patient was advised of his findings. Patient was given a dose of [place] here. Patient was given a prescription for a short course of [place]. Patient was instructed to follow-up with his primary care physician in 5 to 7 days. Patient was instructed to return if worse in any way. Patient understood and was agreeable with the plan. All questions were answered. Discharge Plan Triage Chief Complaint: Flank Pain ED Provider: Abraham Hodges Dx/Rx/DC Orders Clinical Impression: Right flank pain, Bilateral nephrolithiasis Instructions: ED Flank Pain with Uncertain Cause Prescriptions: New hydrocodone-acetaminophen 5-325 mg tablet 1 tab PO Q6H PRN PRN (Reason: Pain) 3 Days Qty: 10 0RF No Action atorvastatin 40 mg tablet 40 mg PO QHS clopidogrel 75 mg tablet 75 mg PO DAILY pantoprazole 40 mg tablet,delayed release (DR/EC) 40 mg PO DAILY ropinirole 1 mg tablet 1 mg PO QHS losartan 25 mg tablet 25 mg PO DAILY allopurinol 300 mg tablet 300 mg PO DAILY cyanocobalamin (vitamin B-12) 1,000 mcg capsule 1,000 mcg PO DAILY ascorbic acid (vitamin C) [C-500] 500 mg tablet 1 g PO DAILY cholecalciferol (vitamin D3) [Vitamin D3] 125 mcg (5,000 unit) tablet 125 mcg PO DAILY nitroglycerin 0.4 mg tablet, sublingual 0.4 mg sublingual Q5M PRN (Reason: chest pain) Primary Care Provider: Jarad Zamudio Referrals: Jarad Zamudio MD [Primary Care Provider, Medical] - 5-7 Days Print Language: Luxembourgish Disposition Disposition: Home, Self Care
[2025-08-05] MEDS: 0.9% Normal Saline (1000mL) 1,000 ML 1000 ML IV (10:20)
[2025-08-05 10:28] LABS: Mucous, Urine 0 SEEN /hpf (<or=2+); Red Blood Cells-Urine 0 SEEN /hpf (0-5); Squamous Epithelial Cells - UA 0 SEEN /hpf (0-5)
[2025-08-05 10:30] LABS: Color, Urine Yellow (Yellow); Glucose, Dipstick Normal (Normal); Hematocrit 47.0 % (40-54); Hemoglobin 16.2 g/dL (13.0-16.5); Immature Granulocytes Count 0.020 X10^3/uL (0.0-0.0); Ketone-Dipstick Negative (Negative); Leukocyte Esterase-Dipstick Negative /ul (Negative); Mean Corp Hgb Conc 34.5 g/dL (32-36); Mean Corpuscular Volume 90.2 fL (80-94); Mean Platelet Vol. 8.2 fl (6.2-12.0); NRBC Flagged by Analyzer 0 % (0-5); Nitrite-Dipstick Negative (Negative); Occult Blood-Urine Negative /ul (Negative); Platelet Count 204 K/mm3 (150-450); Protein-Dipstick Negative (Negative); RBC Distribution Width CV 13.8 % (11.6-14.6); RBC Distribution Width SD 45.8 fl (35.1-43.9); Red Blood Count 5.21 M/mm3 (4.6-6.2); Specific Gravity, Urine 1.010 (1.002-1.030); Urine Bilirubin Dipstick Negative (Negative); White Blood Count 8.0 K/mm3 (4.4-11.0)
--- OUTSIDE RECORDS SUMMARY | 2025-08-05 10:46 | XMS RPT_ITS | CCD ---
Author Organization [facility] Care Team Providers Care Bar Roller Name Role Phone Aramis Beaulieu Unavailable BARRETO, [...] Care Provider Balta Reyo Unavailable Robb SKY [facility] Primary Care Provider Robb SKY [facility] Primary Care Provider Aramis Beaulieu MD Primary Care Provider JUSTIN OROZCO Admitting Unavailable ARAMIS BEAULIEU Primary Care Unavaila ble REY, JARAD Primary Care Unavailable YASMANY SMITH Admitting Unavailable YASMANY SMITH Attending Unavailable Robb SKY [facility] Primary Care Provider REY, JARAD Primary Care [...] REY, JARAD Primary Care Unavailable Robb SKY, Jarad Primary Care Provider [phone] Robb SKY, Dr. Abraham Primary Care Provider [phone] [place], Melba Attending Provider [place], Melba Referring Provider [phone] Brigitte SKY, Dr. Harjit Simms Attending Provider Brigitte SKY, Dr. Harjit Simms Referring Provider Brigitte SKY, Dr. Harjit Simms Admit Provider REY, JARAD Primary Care Unavailable ZAK ALVAREZ Attending Unavailable REY, JARAD Primary Care Unavailable GABRIEL SOTO Attending Unavailable ISABELA BAZAN W Referring Unavailable REY, JARAD Primary Care Unavailable Mckenna SKY, Dr. Ramirez Emergency Provider Rey, Jarad Primary Care Unavailable [place], Melba Attending Unavailable [place], Melba Referring Unavailable Rey, Jarad Primary Care Unavailable James Andres Attending Unavailable BrigitteHarjit Admitting Unavailable Brigitte, Harjit Simms Attending Unavailable Rey, Jarad Primary Care Unavailable BrigitteHarjit Attending Unavailable BrigitteHarjit Referring Unavailable Rey, Jarad Primary Care Unavailable REY, JARAD Referring Unavailable REY, JARAD Primary Care Unavailable DAISHA KAYLYNN A Attending Unavailable DAISHA, KAYLYNN A Referring Unavailable REY, JARAD Primary Care Unavailable Allergies Allergy Classification Reported Allergen(s) Allergy Type Date of Onset Reaction(s) Facility (1 source) No Known Allergies; Translations: [No Known Allergies] Propensity to adverse reactions to drug (disorder) [facility] Repository (1 source) No Known Medication Allergies; Translations: [No Known Medication Allergies] Propensity to adverse reactions to drug (disorder) [facility] Repository (4 sources) Sulfamethoxazole / Trimethoprim; Translations: [SULFAMETHOXAZOLE-T RIMETHOPRIM] Drug Allergy 04-11-20 25 Nausea Only, Other, Drowsiness Bon [employer] [facility] (4 sources) Sulfamethoxazole Drug Allergy 04-13-20 25 Nausea/Vom/Kaylin [facility] (4 sources) Trimethoprim Drug Allergy 04-13-20 Nausea/Vom/Kaylin [facility] (1 source) Sulfamethoxazole Drug Allergy 05-12-20 [facility] Repository (1 source) Trimethoprim Drug Allergy 05-12-20 [facility] Repository Medications Current Medications Medication Drug Class(es) [...] days. 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 TAKE 1 TABLET DAILY 90 tablet 3 08/14/2024 Active Start: 03-09-2022 atorvastatin ( LIPITOR) 20 MG tablet Indications: 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 TAKE 1 TABLET NIGHTLY 90 tablet 3 03/09/2022 Active Start: 06-12-2021 atorvastatin ( LIPITOR) 20 MG tablet Indications: 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 TAKE 1 TABLET NIGHTLY 90 tablet 3 06/12/2021 Active Start: 06-10-2020 atorvastatin ( LIPITOR) 20 MG tablet Indications: 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 TAKE 1 TABLET [...] B Complex Vitamins (VITAMIN B COMPLEX PO) (17 sources) B Complex Vitami ns (VITAMIN B COMPLEX PO) Take 1 tablet by mouth Active B Complex Vitami ns (VITAMIN B COMPLEX PO) Take 1 tablet by mouth 0 Active calcium chloride 0.0014 meq/ml / potassium chloride 0.004 meq/ml / sodium chloride 0.103 meq/ml / sodium lactate 0.028 meq/ml injectable solution (1 source) Start: 09-14-2019 lactated ringe rs infusion cephalexin 500 mg oral capsule (5 sources) Cephalosporin Antibacterial Start: 05-12-2025 take 1 capsule by mouth every six hours Cephalexin 500 mg capsule Active 500 mg PO EVERY 6 HOURS 20 0 May 12, 2025 12:00am Start: 11-09-2023 End: 11-19-2023 take 1 capsule [...] daily. 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 TAKE 1 TABLET DAILY 90 tablet 3 06/11/2023 Active Start: 03-09-2022 clopidogrel (P LAVIX) 75 MG tablet Indications: 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 TAKE 1 TABLET DAILY 90 tablet 3 03/09/2022 Active Start: 06-12-2021 clopidogrel (P LAVIX) 75 MG tablet Indications: 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 STAT severe sleep apnea 1 each 03/06/2022 Active Start: 03-06-2022 CPAP Machine [facility] Indications: BUCK on CPAP by [...] for Pain 30 tablet 0 06/12/2021 Active dicyclomine hydrochloride 10 mg oral capsule (10 sources) Anticholinergic Start: 09-13-2023 End: 02-23-2024 take 1 capsule by mouth four times daily as needed dicyclomine (BENTYL) 10 MG capsule Indications: Irritable bowel syndrome, unspecified type Take 1 capsule by mouth 4 times daily as needed (abdominal cramping) 120 capsule 09/13/2023 Active 24 hr dilTIAZem hydrochloride 120 mg [...] Start: 06-07-2019 take 1 capsule by mo uth once [...] AFFECTED AREAS OF THE SCALP AND LEFT YARSANI TWICE DAILY FOR 3 WEEKS 04/24/2024 Active [...] Angiotensin 2 Receptor Deep Start: 06-11-2023 losartan (COZAAR) 25 MG tablet Indications: 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 TAKE 1 TABLET DAILY 90 tablet 3 08/04/2024 Active Start: 03-09-2022 losartan (COZA AR) 25 MG tablet Indications: 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 Devices MISC (17 sources) Start: 05-06-2018 Misc. Devices MISC Indications: BUCK on CPAP Full face mask, tubing, and heater. 1 Device 05/06/2018 Active Start: 05-06-2018 Misc. Devices MISC Indications: BUCK on CPAP Full face mask, tubing, and heater. 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 Place 1 tablet under the tongue every 5 minutes as needed for Chest pain 25 tablet 06/27/2025 Active Start: 06-11-2023 nitroGLYCERIN (NITROSTAT) 0.4 MG SL tablet Indications: 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 Place 1 tablet under the tongue every 5 minutes as needed for Chest pain 25 tablet 06/11/2023 Active Start: 04-23-2015 nitroGLYCERIN (NITROSTAT) 0.4 MG SL tablet Indications: 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 Place 1 tablet under the tongue every 5 minutes as needed for Chest pain 25 tablet 0 06/15/2022 Active oxyCODONE hydrochloride 5 mg oral tablet (5 sources) Opioid Agonist Start: 04-25-2025 take 1 tablet by mouth every six hours as needed for pain Oxycodone 5 mg tablet Active 5 mg PO EVERY 6 HOURS as needed for pain 10 3 0 May 06, 2025 Calculus of kidney Calculus of kidney pantoprazole 40 mg delayed release oral tablet (20 sources) Proton Pump Inhibitor Start: 06-11-2023 pantoprazole (PROTONIX) 40 MG tablet Indications: Gastroesophageal reflux disease, unspecified whether esophagitis present TAKE 1 TABLET DAILY 90 tablet 3 08/04/2024 Active Start: 05-25-2015 pantoprazole ( PROTONIX) 40 MG tablet Indications: Gastroesophageal reflux disease, unspecified whether esophagitis present TAKE 1 TABLET DAILY 90 tablet 3 03/09/2022 Active phenazopyridine hydrochloride 100 mg oral tablet (6 sources) Start: 04-25-2025 take 1 tablet by mouth three times daily Phenazopyridine (Pyridium) 100 mg tablet Active 100 mg PO THREE TIMES A DAY May 06, 2025 12:00am Start: 11-09-2023 End: 11-09-2023 phenazopyridine (Pyridium) t ablet 200 mg Respiratory Therapy Supplies SHAHRIAR (12 sources) Start: 02-17-2023 Respiratory Th erapy Supplies [...] sources) Nonergot Dopamine Agonist Start: 06-11-2023 rOPINIRole (REQUIP) 1 MG tablet Indications: Restless leg TAKE 1 TABLET NIGHTLY 90 tablet 3 08/04/2024 Active Start: 05-25-2015 rOPINIRole (RE QUIP) 1 [...] mL tamsulosin hydrochloride 0.4 mg oral capsule (17 sources) alpha-Adrenergic Deep Start: 04-25-2025 take 1 capsule by mouth once daily Tamsulosin (Flomax) 0.4 mg capsule Active 0.4 mg PO DAILY May 06, 2025 12:00am Start: 11-08-2023 End: [...] Active vitamin b12 1 mg oral capsule (4 sources) Vitamin B12 Start: 04-13-2025 take 1 [...] 500 mg by mouth daily. 05/19/2017 Discontinued 60 actuat formoterol fumarate 0.005 mg/actuat / [...] mL/hr, Administer over 60 Minutes, Once, On Wed05/05/25 at 0040, For 1 dose, premix bag, [...] Problem Date Documented Da te Episodic/Chronic Asthma (3 sources) Mild intermittent asthma; Translations: [Mild intermittent asthma, uncomplicated] Onset: 2 07-08-2022 Chronic Cardiac dysrhythmias (9 sources) Bradycardia; Translations: [Bradycardia, unspecified] Onset: 7 06-02-2017 Chronic Chronic obstructive pulmonary disease and bronchiectasis (4 sources) Pulmonary emphysema; Translations: [Other emphysema] Onset: 2 04-27-2022 Chronic Coronary atherosclerosis and other heart disease (20 sources) Coronary arteriosclerosis in chilkat artery; Translations: [Atherosclerotic heart disease of chilkat coronary artery without angina pectoris] Onset: 6 05-20-2016 Chronic Coronary atherosclerosis and other heart disease (1 source) Coronary atherosclerosis and other heart disease Onset: 8 Disorders of lipid metabolism (20 sources) Dyslipidemia; Translations: [Hyperlipidemia, unspecified] Onset: 6 05-20-2016 Chronic Esophageal disorders (20 sources) Gastroesophageal reflux disease; Translations: [Gastro-esophageal reflux disease without esophagitis] Onset: 6 11-27-2015 Chronic Essential hypertension (2 sources) Essential (primary) hypertension; Translations: [Essential (primary) hypertension] Onset: 3 Chronic Genitourinary symptoms and ill-defined conditions (20 sources) Nocturia; Translations: [Nocturia] Onset: 4 10-07-2023 Episodic Gout and other crystal arthropathies (17 sources) Gout; Translations: [Gout, unspecified] Onset: 8 01-13-2018 Chronic Other connective tissue disease (1 source) Pain in right hand; Translations: [Pain in right hand] Episodic Other diseases of kidney and ureters (1 source) Hydronephrosis with renal and ureteral calculous obstruction; Translations: [Hydronephrosis with renal and ureteral calculous obstruction] Onset: 5 Episodic Other gastrointestinal disorders (3 sources) Irritable bowel syndrome; Translations: [Irritable bowel syndrome without diarrhea] Onset: 4 09-13-2023 Chronic Other hereditary and degenerative nervous system conditions (17 sources) Restless legs; Translations: [Restless legs syndrome] Onset: 8 01-13-2018 Chronic Other lower respiratory disease (1 source) Dyspnea on exertion; Translations: [Dyspnea, unspecified] Episodic Residual codes; unclassified (17 sources) Obstructive sleep apnea syndrome; Translations: [Obstructive sleep apnea (adult) (pediatric)] Onset: 8 05-06-2018 Chronic Thyroid disorders (15 sources) Multinodular goiter; Translations: [Nontoxic multinodular goiter] Onset: 1 Resolved: 2 Chronic Unclassified (2 sources) Athscl heart disease of chilkat coronary artery w/o ang pctrs / I25.10(ICD-9) [...] Date Documented Da te Episodic/Chronic Abdominal pain (5 sources) Unspecified abdominal pain; Translations: [Stomach ache] Onset: 07-05-2023 Resolved: 06-26-2024 Episodic Biliary tract disease (6 sources) Polyp of gallbladder; Translations: [Cholesterolosis of gallbladder] Onset: 09-13-2023 Resolved: 06-27-2025 09-13-2023 Episodic Calculus of urinary tract (20 sources) Kidney stone; Translations: [Calculus of kidney] Onset: 01-13-2018 01-13-2018 Episodic Cardiac dysrhythmias (15 sources) Bradycardia; Translations: [Bradycardia, unspecified] Onset: 06-02-2017 Resolved: 04-27-2022 01-13-2018 Episodic Hyperplasia of prostate (20 sources) Benign prostatic hyperplasia; Translations: [Benign prostatic hyperplasia with lower urinary tract symptoms] Onset: 09-13-2023 Resolved: 06-27-2025 10-07-2023 Chronic Melanomas of skin (17 sources) Malignant melanoma; Translations: [Malignant melanoma of skin, unspecified] Onset: 08-30-2002 Resolved: 06-26-2024 01-13-2018 Chronic Nonspecific chest pain (3 sources) Chest discomfort; Translations: [Other chest pain] Resolved: 06-02-2017 06-02-2017 Episodic Other and ill-defined heart disease (17 sources) Heart disease; Translations: [Heart disease, unspecified] Resolved: 01-13-2018 01-13-2018 Chronic Other and unspecified benign neoplasm (3 sources) Polyp of colon; Translations: [Polyp of colon] Onset: 08-17-2023 Resolved: 06-26-2024 06-26-2024 Episodic Other lower respiratory disease (5 sources) Dyspnea; Translations: [Shortness of breath] Onset: 07-08-2022 Resolved: 06-11-2023 Episodic Other non-epithelial cancer of skin (19 sources) Basal cell carcinoma of skin; Translations: [Basal cell carcinoma of skin, unspecified] Onset: 01-13-2018 01-13-2018 Episodic Other nutritional; endocrine; and metabolic disorders (3 sources) Body mass index 30+ - obesity; Translations: [Obesity, unspecified] Onset: 07-08-2022 Resolved: 06-11-2023 06-11-2023 Chronic Unclassified (4 sources) Thallium stress test abnormal; Translations: [Patient encounter status] Onset: 11-27-2015 Resolved: 06-02-2017 06-02-2017 Episodic Unclassified (1 source) Basal cell carcinoma skin/ left lower limb, including hip; Translations: [Basal cell carcinoma skin/ left lower limb, including hip] Onset: 05-04-2018 Unclassified (1 source) BCCA LEFT LEG [id number] C44.719 Onset: 05-04-2018 Unclassified (17 sources) Onset: 10-07-2023 Resolved: 06-26-2025 10-07-2023 Results Test Name Value Interpretation Reference Range Facility Hemoglobin A1Con 06-28-2025 Glucose [Mass/Vol] 97 mg/dL Normal [facility] Comment on above: Result Comment: The ADA and AACC recommend providing the estimated average glucose result to permit better patient understanding of their HBA1c result. Performed at [facility], [address] [place] [id number] . HbA1c (Bld) [Mass fraction] 5.0 % Normal 4.0-6.0 [facility] Lipid Panel Fastingon 2024 Cholesterol [Mass/Vol] 117 mg/dL Normal 0-199 [facility] Comment on above: ATP III Cholesterol classification is Desirable. Result Comment: ATP III Cholesterol classification is Desirable. Performed By: #### L IPDF #### [facility] [address] [place] [address] HDL Cholesterol Fasting 35 mg/dL Low 40-59 [facility] Comment on above: Result Comment: ATP [...] CHD Performed By: #### L IPDF #### [facility] [address] [place] [address] LDL Cholesterol (Calculated) Fasting 69 mg/dL Normal 0-129 [facility] Comment on above: Result Comment: ATP III LDL Classification is Optimal. Performed By: #### L IPDF #### [facility] [address] [place] [address] Triglycerides Fasting 67 mg/dL Normal 0-150 [facility] Comment on above: Result Comment: ATP III Triglycerides Classification is Normal. Performed By: #### L IPDF #### [facility] [address] [place] [address] Lipid, Fastingon 06-27-2025 Cholesterol in HDL [Mass/Vol] 35 mg/dL Low 40 - 59 mg/dL [facility] Comment on above: ATP [...] factor for CHD Cholesterol in LDL [Mass/Vol] 69 mg/dL 0 - 129 mg/dL [facility] Comment on above: ATP III LDL Classifi cation is Optimal. Interpretation and review of laboratory results Abnormal [facility] Triglyceride, Fasting 67 mg/dL 0 - 15 0 mg/dL [facility] Comment on above: ATP III Triglyceride s Classification is Normal. [facility] Urine Cultureon 05-13-2025 URC Culture exhibits no growth. Normal [facility] Comment on above: Performed By: #### M 100.2200 ####[facility] [id number] [facility] [place], [address] Bilirubin Test strip Ql (U)O rdered By: James Andres on 05-12-2025 Bilirubin Ql (U) Negative Negative [facility] Emergency Department Summary on 05-12-2025 Emergency Department Summary [facility] Medical Records Department [address] [place] [address] Emergency Department Summary 05/12/25 MR#: [id number] Acct: [id number] Name: RAMON COSTA Rep #: [id number] : [id number] From: James Andres MD PCP: Jarad Rey MD Status:REG ER Location: ED HPI History of Present Illness Chief Complaint: Complaint Informant: patient and spouse/S.O. Narrative Narrative: 69-year-old male having difficulty urinating. He states that started several days ago, he had a ureteral stent that was placed 1 week ago after having kidney stone cluster that was lasered/removed here by Dr. Lam. He saw him in the office 2 days ago because of the difficulty urinating so the stent was removed, but since then he has not been able to urinate on his own at all but if he self catheterizes himself, supplies given to him by urology in the past Dr. Bazan in [place], he is able to empty his bladder and he states he gets quite a bit of urine out and feels better until the next time he needs to go and is only able to dribble a little bit of urine without catheterizing himself. He states he is already on Flomax for his prostate. No gross hematuria. [facility] Medical History Wears glasses Cancer Prostate disease [...] mg PO DAILY 04/13/25 04/18/25 H istory cyanocobalamin (vitamin B-12) 1,000 mcg PO DAILY [...] (Flomax) 0.4 mg PO DAILY #14 caps 04/25/2 5 05/04/25 10:00 Rx ciprofloxacin HCl 500 mg tablet 500 mg PO BID #6 tabs 05/06/25 Unk nown Rx (Cipro) oxycodone 5 mg tablet 5 mg PO Q6H PRN pain 3 days #10 Unknown Rx tabs phenazopyridine 100 mg tablet 100 mg PO TID #14 tabs 05/06/25 Un known Rx (Pyridium) tamsulosin 0.4 mg capsule (Flomax) 0.4 mg PO DAILY #10 caps 5 Unknown Rx cephalexin 500 mg capsule 500 mg PO Q6 #20 CAPSULES 05/12/25 Unknown Rx Allergy/AdvReac Type Severity Reaction Status Date / Time sulfamethoxazole (From AdvReac Intermediate Nausea/Vom/ Verified 05/12/25 10:07 Bactrim) Diarrhea trimethoprim (From Bactrim) AdvReac Intermediate Nausea/Vom/ Verified 05/12/25 10:07 Diarrhea Surgical History History of cardiac catheterization History of esophagogastroduodenoscopy (EGD) Hx of colonoscopy History of coronary artery stent placement Social History Smoking Status: Never smoker ROS ROS ED Constitutional Constitutional ED: Denies chills or fever(s) Eyes Eyes: Denies change in vision or diplopia ENT ENT ED: Denies rhinorrhea or sore throat Cardiovascular Cardiovascular: Denies chest pain or palpitations Respiratory/Chest Respiratory/Chest: Denies cough or dyspnea Gastrointestinal Gastrointestinal: Denies abdominal pain, diarrhea, nausea or vomiting Genitourinary Genitourinary ED: Reports difficulty urinating, dribbling and dysuria; Denies hematuria Musculoskeletal Musculoskeletal: Denies back pain or neck pain Integumentary Denies abscess or rash Neurologic Neurologic: Denies headache(s), paresthesias or weakness Psychiatric Psychiatric: Denies anxiety or suicidal thoughts EXAM Physical Exam Const Vital Signs: 05/12/25 10:06 Temperature 98 F Temperature Source Temporal Pulse Rate 76 Respiratory Rate 14 Blood Pressure 155/74 H (more content not included)... Normal [facility] Ketones Test strip Ql (U)Ord ered By: James Andres on 05-12-2025 Ketones Ql (U) 5 mg/dl High Negative [facility] Microscopic analysis of urin e for red blood cells (RBC)Ordered By: James Andres on 05-12-2025 Microscopic analysis of urine for red blood cells (RBC) 0 SEEN /hpf 0-5 [facility] Mucus LM Ql (Urine sed)Order ed By: James Andres on 05-12-2025 Mucus Ql (Urine sed) 0 SEEN /hpf [facility] Nitrite Test strip Ql (U)Ord ered By: James Andres on 05-12-2025 Nitrite Ql (U) Positive High Negative [facility] Protein Test strip Ql (U)Ord ered By: James Andres on 05-12-2025 Protein Ql (U) 15 mg/dl High Negative [facility] Squamous epithelial cells de tection in urine sediment by light microscopyOrdered By: James Andres on 05-12-2025 Epithelial cells.squamous LM Ql (Urine sed) 0 SEEN /hpf 0-5 [facility] Urinalysis, Completeon 05-12 WBC 0-5 SEEN Normal 0-5 [facility] Comment on above: Order Comment: POLO TER SPECIMEN Performed By: #### L 400.0001 #### [facility] [address] [place], [place], [id number] BACTERIA 0 SEEN Normal None Seen [facility] Comment on above: Order Comment: POLO TER SPECIMEN Performed By: #### L 400.0001 #### [facility] [address] [place], [address] EPI,SQUAMOUS 0 SEEN Normal 0-5 [facility] Comment on above: Order Comment: POLO TER SPECIMEN Performed By: #### L 400.0001 #### [facility] [address] [place], [address] Mucus Ql (Urine sed) 0 SEEN Normal [facility] Comment on above: Order Comment: POLO TER SPECIMEN Performed By: #### L 400.0001 #### [facility] [address] [place], [address] RBC 0 SEEN Normal 0-5 [facility] Comment on above: Order Comment: POLO TER SPECIMEN Performed By: #### L 400.0001 #### [facility] [address] [place], [place], [id number] Urine clarityOrdered By: La Andres on 05-12-2025 Clarity (U) Clear Clear [facility] Urine color determinationOrd ered By: James Andres on 05-12-2025 Color (U) Yellow Yellow [facility] Urine glucose detectionOrder ed By: James Andres on 05-12-2025 Glucose Ql (U) Normal mg/dl Normal [facility] Urine leukocyte esterase det ection by dipstickOrdered By: aJmes Andres on 05-12-2025 Leukocyte esterase Test strip Ql (U) 25 /ul High Negative [facility] Urine pHOrdered By: James Andres on 05-12-2025 pH (U) 7.0 [pH] 5.0 - 8.0 [facility] Urine sediment bacteria coun t by microscopy (number/high power field)Ordered By: James Andres on 05-12-2025 Bacteria LM.HPF (Urine sed) [#/Area] 0 /[HPF] None Seen [facility] Urine specific gravity measu rementOrdered By: James Andres on 05-12-2025 Specific gravity (U) [Rel density] 1.005 1.002-1.030 [facility] Urine urobilinogen measureme ntOrdered By: James Andres on 05-12-2025 Urobilinogen Ql (U) 1 mg/dl High Normal [facility] White blood cell countOrdere d By: James Andres on 05-12-2025 White blood cell count 0-5 SEEN /hpf 0-5 [facility] Basic Metabolic Profile (BMP )on 05-08-2025 BUN Normal 4-19 [facility] Comment on above: Result Comment: Canc elled via OM: Order cancelled - Patient discharged Performed By: #### L 100.0100, L500.2500 #### [facility] [address] [place], [place], [id number] BUN/CRE Normal 10-20 [facility] Comment on above: Result Comment: Canc elled via OM: Order cancelled - Patient discharged Performed By: #### L 100.0100, L500.2500 #### [facility] [address] [place], [address] Calcium Normal 7.6-11.0 [facility] Comment on above: Result Comment: Canc elled via OM: Order cancelled - Patient discharged Performed By: #### L 100.0100, L500.2500 #### [facility] [address] [place], [address] CL Normal 98-108 [facility] Comment on above: Result Comment: Canc elled via OM: Order cancelled - Patient discharged Performed By: #### L 100.0100, L500.2500 #### [facility] [address] [place], [address] CO2 Normal 21.0-32.0 [facility] Comment on above: Result Comment: Canc elled via OM: Order cancelled - Patient discharged Performed By: #### L 100.0100, L500.2500 #### [facility] [address] [place], [address] CREAT,SERUM Normal 0.70-1.20 [facility] Comment on above: Result Comment: Canc elled via OM: Order cancelled - Patient discharged Performed By: #### L 100.0100, L500.2500 #### [facility] [address] [place], [address] eGFR Normal >60 [facility] Comment on above: Result Comment: Canc elled via OM: Order cancelled - Patient discharged Performed By: #### L 100.0100, L500.2500 #### [facility] [address] [place], [address] GAP Normal 5-15 [facility] Comment on above: Result Comment: Canc elled via OM: Order cancelled - Patient discharged Performed By: #### L 100.0100, L500.2500 #### [facility] [address] [place], [address] GLU Normal 70-99 [facility] Comment on above: Result Comment: Canc elled via OM: Order cancelled - Patient discharged Performed By: #### L 100.0100, L500.2500 #### [facility] [address] [place], [address] Potassium Normal 3.3-5.1 [facility] Comment on above: Result Comment: Canc elled via OM: Order cancelled - Patient discharged Performed By: #### L 100.0100, L500.2500 #### [facility] [address] [place], [address] Basic Metabolic Profile (BMP) Normal 133-145 [facility] Comment on above: Result Comment: Canc elled via OM: Order cancelled - Patient discharged Performed By: #### L 100.0100, L500.2500 #### [facility] [address] [place], [address] CBC W/Diff, Automatedon 09-0 -2024 Absolute Neut Normal 2.0-7.7 [facility] Comment on above: Result Comment: Canc elled via OM: Order cancelled - Patient discharged Performed By: #### L 100.0100, L500.2500 #### [facility] [address] [place], [address] HCT Normal 40-54 [facility] Comment on above: Result Comment: Canc elled via OM: Order cancelled - Patient discharged Performed By: #### L 100.0100, L500.2500 #### [facility] [address] [place], [address] HGB Normal 13.0-16.5 [facility] Comment on above: Result Comment: Canc elled via OM: Order cancelled - Patient discharged Performed By: #### L 100.0100, L500.2500 #### [facility] [address] [place], [address] MCH Normal 27.0-32.0 [facility] Comment on above: Result Comment: Canc elled via OM: Order cancelled - Patient discharged Performed By: #### L 100.0100, L500.2500 #### [facility] [address] [place], [address] MCHC Normal 32-36 [facility] Comment on above: Result Comment: Canc elled via OM: Order cancelled - Patient discharged Performed By: #### L 100.0100, L500.2500 #### [facility] [address] [place], [address] MCV Normal 80-94 [facility] Comment on above: Result Comment: Canc elled via OM: Order cancelled - Patient discharged Performed By: #### L 100.0100, L500.2500 #### [facility] [address] [place], [address] NEUT% Normal 47-70 [facility] Comment on above: Result Comment: Canc elled via OM: Order cancelled - Patient discharged Performed By: #### L 100.0100, L500.2500 #### [facility] [address] [place], [address] PLT Normal 150-450 [facility] Comment on above: Result Comment: Canc elled via OM: Order cancelled - Patient discharged Performed By: #### L 100.0100, L500.2500 #### [facility] [address] [place], [address] RBC Normal 4.6-6.2 [facility] Comment on above: Result Comment: Canc elled via OM: Order cancelled - Patient discharged Performed By: #### L 100.0100, L500.2500 #### [facility] [address] [place], [address] RDW CV Normal 11.6-14.6 [facility] Comment on above: Result Comment: Canc elled via OM: Order cancelled - Patient discharged Performed By: #### L 100.0100, L500.2500 #### [facility] [address] [place], [address] RDW SD Normal 35.1-43.9 [facility] Comment on above: Result Comment: Canc elled via OM: Order cancelled - Patient discharged Performed By: #### L 100.0100, L500.2500 #### [facility] [address] [place], [address] WBC Normal 4.4-11.0 [facility] Comment on above: Result Comment: Canc elled via OM: Order cancelled - Patient discharged Performed By: #### L 100.0100, L500.2500 #### [facility] [address] [place], [address] Basic Metabolic Profile (BMP )on 05-07-2025 BUN Normal 4-19 [facility] Comment on above: Result Comment: Canc elled via OM: Order cancelled - Patient discharged Performed By: #### L 500.2500, L100.0100 #### [facility] [address] [place], [address] BUN/CRE Normal 10-20 [facility] Comment on above: Result Comment: Canc elled via OM: Order cancelled - Patient discharged Performed By: #### L 500.2500, L100.0100 #### [facility] [address] [place], [address] Calcium Normal 7.6-11.0 [facility] Comment on above: Result Comment: Canc elled via OM: Order cancelled - Patient discharged Performed By: #### L 500.2500, L100.0100 #### [facility] [address] [place], [address] CL Normal 98-108 [facility] Comment on above: Result Comment: Canc elled via OM: Order cancelled - Patient discharged Performed By: #### L 500.2500, L100.0100 #### [facility] [address] [place], [address] CO2 Normal 21.0-32.0 [facility] Comment on above: Result Comment: Canc elled via OM: Order cancelled - Patient discharged Performed By: #### L 500.2500, L100.0100 #### [facility] [address] [place], [address] CREAT,SERUM Normal 0.70-1.20 [facility] Comment on above: Result Comment: Canc elled via OM: Order cancelled - Patient discharged Performed By: #### L 500.2500, L100.0100 #### [facility] [address] [place], [address] eGFR Normal >60 [facility] Comment on above: Result Comment: Canc elled via OM: Order cancelled - Patient discharged Performed By: #### L 500.2500, L100.0100 #### [facility] [address] [place], [address] GAP Normal 5-15 [facility] Comment on above: Result Comment: Canc elled via OM: Order cancelled - Patient discharged Performed By: #### L 500.2500, L100.0100 #### [facility] [address] [place], [address] GLU Normal 70-99 [facility] Comment on above: Result Comment: Canc elled via OM: Order cancelled - Patient discharged Performed By: #### L 500.2500, L100.0100 #### [facility] [address] [place], [address] Potassium Normal 3.3-5.1 [facility] Comment on above: Result Comment: Canc elled via OM: Order cancelled - Patient discharged Performed By: #### L 500.2500, L100.0100 #### [facility] [address] [place], [address] Basic Metabolic Profile (BMP) Normal 133-145 [facility] Comment on above: Result Comment: Canc elled via OM: Order cancelled - Patient discharged Performed By: #### L 500.2500, L100.0100 #### [facility] [address] [place], [address] CBC W/Diff, Automatedon 09-0 8-2024 Absolute Neut Normal 2.0-7.7 [facility] Comment on above: Result Comment: Canc elled via OM: Order cancelled - Patient discharged Performed By: #### L 500.2500, L100.0100 ####[facility] [address] [place], [address] HCT Normal 40-54 [facility] Comment on above: Result Comment: Canc elled via OM: Order cancelled - Patient discharged Performed By: #### L 500.2500, L100.0100 ####[facility] [address] [place], [address] HGB Normal 13.0-16.5 [facility] Comment on above: Result Comment: Canc elled via OM: Order cancelled - Patient discharged Performed By: #### L 500.2500, L100.0100 ####[facility] [address] [place], [address] MCH Normal 27.0-32.0 [facility] Comment on above: Result Comment: Canc elled via OM: Order cancelled - Patient discharged Performed By: #### L 500.2500, L100.0100 ####[facility] [address] [place], [address] MCHC Normal 32-36 [facility] Comment on above: Result Comment: Canc elled via OM: Order cancelled - Patient discharged Performed By: #### L 500.2500, L100.0100 ####[facility] [address] [place], [address] MCV Normal 80-94 [facility] Comment on above: Result Comment: Canc elled via OM: Order cancelled - Patient discharged Performed By: #### L 500.2500, L100.0100 ####[facility] [address] [place], [address] NEUT% Normal 47-70 [facility] Comment on above: Result Comment: Canc elled via OM: Order cancelled - Patient discharged Performed By: #### L 500.2500, L100.0100 ####[facility] [address] [place], [address] PLT Normal 150-450 [facility] Comment on above: Result Comment: Canc elled via OM: Order cancelled - Patient discharged Performed By: #### L 500.2500, L100.0100 ####[facility] [address] [place], [address] RBC Normal 4.6-6.2 [facility] Comment on above: Result Comment: Canc elled via OM: Order cancelled - Patient discharged Performed By: #### L 500.2500, L100.0100 ####[facility] [address] [place], [address] RDW CV Normal 11.6-14.6 [facility] Comment on above: Result Comment: Canc elled via OM: Order cancelled - Patient discharged Performed By: #### L 500.2500, L100.0100 ####[facility] [address] [place], [address] RDW SD Normal 35.1-43.9 [facility] Comment on above: Result Comment: Canc elled via OM: Order cancelled - Patient discharged Performed By: #### L 500.2500, L100.0100 ####[facility] [address] [place], [address] WBC Normal 4.4-11.0 [facility] Comment on above: Result Comment: Canc elled via OM: Order cancelled - Patient discharged Performed By: #### L 500.2500, L100.0100 ####[facility] [address] [place], [address] Absolute lymphocyte countOrd ered By: Harjit Lam on 05-06-2025 Lymphocytes Auto (Unsp spec) [#/Vol] 1.39 10*3/uL 0.83-4.51 [facility] Absolute neutrophil countOrd ered By: Harjit Lam on 05-06-2025 Neutrophils (Bld) [#/Vol] 6.2 10*3/uL 2.0-7.7 [facility] Anion gap in Serum or Plasma Ordered By: Harjit Lam on 05-06-2025 Anion gap [Moles/Vol] 7 mmol/L 5-15 [facility] Automated lymphocyte count a s percentage of total leukocytesOrdered By: Harjit Lam on 05-06-2025 Lymphocytes/100 WBC Auto (Unsp spec) 16.4 % Low 19-41 [facility] BUN/creatinine ratioOrdered By: Harjit Lam on 05-06-2025 Urea nitrogen/Creatinine [Mass ratio] 8.7 mg/mg Low 10-20 [facility] Basic Metabolic Profile (BMP )on 05-06-2025 BUN/CRE 8.7 RATIO Low 10-20 [facility] Comment on above: Performed By: #### L 500.2500, L100.0100 ####[facility] [address] [place], [address] Calcium [Mass/Vol] 8.1 mg/dL Normal 7.6-11.0 [facility] Comment on above: Performed By: #### L 500.2500, L100.0100 ####[facility] [address] [place], [address] Chloride [Moles/Vol] 111 mmol/L High 98-108 [facility] Comment on above: Performed By: #### L 500.2500, L100.0100 ####[facility] [address] [place], [address] CO2 [Moles/Vol] 22.0 mmol/L Normal 21.0-32.0 [facility] Comment on above: Performed By: #### L 500.2500, L100.0100 ####[facility] [address] [place], [address] Creatinine [Mass/Vol] 1.43 mg/dL High 0.70-1.20 [facility] Comment on above: Performed By: #### L 500.2500, L100.0100 ####[facility] [address] [place], [address] ECRCL 60.60 ml/min Normal 50-250 [facility] Comment on above: Performed By: #### L 500.2500, L100.0100 ####[facility] [address] [place], [address] GAP 7 Normal 5-15 [facility] Comment on above: Performed By: #### L 500.2500, L100.0100 ####[facility] [address] [place], [address] GFR/1.73 sq M.predicted among non-blacks MDRD (S/P/Bld) [Vol rate/Area] 53 mL/min/{1.73_m2} Low >60 [facility] Comment on above: Result Comment: mL/m in/1.73m2 CKD-EPI Creatinine Equation (2020) Performed By: #### L 500.2500, L100.0100 ####[facility] [address] [place], [address] Glucose [Mass/Vol] 101 mg/dL High 70-99 [facility] Comment on above: Performed By: #### L 500.2500, L100.0100 ####[facility] [address] [place], [address] Potassium [Moles/Vol] 4.0 mmol/L Normal 3.3-5.1 [facility] Comment on above: Performed By: #### L 500.2500, L100.0100 ####[facility] [address] [place], [address] Sodium [Moles/Vol] 140 mmol/L Normal 133-145 [facility] Comment on above: Performed By: #### L 500.2500, L100.0100 ####[facility] [address] [place], [address] Urea nitrogen [Mass/Vol] 12 mg/dL Normal 4-19 [facility] Comment on above: Performed By: #### L 500.2500, L100.0100 ####[facility] [address] [place], [address] Basophil percentageOrdered B y: Harjit Lam on 05-06-2025 Basophils/100 WBC (Bld) 0.4 % 0-1 [facility] CBC W/Diff, Automatedon Absolute Lymph 1.39 X10 3/uL Normal 0.83-4.51 [facility] Comment on above: Performed By: #### L 500.2500, L100.0100 ####[facility] [address] [place], [address] Absolute Neut 6.2 X10 3/uL Normal 2.0-7.7 [facility] Comment on above: Performed By: #### L 500.2500, L100.0100 ####[facility] [address] [place], [address] Basophils/100 WBC (Bld) 0.4 % Normal 0-1 [facility] Comment on above: Performed By: #### L 500.2500, L100.0100 ####[facility] [address] [place], [address] Eosinophils/100 WBC (Bld) 1.2 % Normal 0-5 [facility] Comment on above: Performed By: #### L 500.2500, L100.0100 ####[facility] [address] [place], [address] Erythrocyte distribution width (RBC) [Ratio] 13.6 % Normal 11.6-14.6 [facility] Comment on above: Performed By: #### L 500.2500, L100.0100 ####[facility] [address] [place], [address] Hematocrit (Bld) [Volume fraction] 36.5 % Low 40-54 [facility] Comment on above: Performed By: #### L 500.2500, L100.0100 ####[facility] [address] [place], [address] Hemoglobin (Bld) [Mass/Vol] 12.3 g/dL Low 13.0-16.5 [facility] Comment on above: Performed By: #### L 500.2500, L100.0100 ####[facility] [address] [place], [address] IG% 0.600 Normal 0.0-0.9 [facility] Comment on above: Result Comment: IG% - Immature Granulocytes (promyelocytes, myelocytes and metamyelocytes) > 1% indicates that a LEFT SHIFT is Present. Performed By: #### L 500.2500, L100.0100 ####[facility] [address] [place], [address] Lymphocytes/100 WBC (Bld) 16.4 % Low 19-41 [facility] Comment on above: Performed By: #### L 500.2500, L100.0100 ####[facility] [address] [place], [address] MCH (RBC) [Entitic mass] 31.9 pg Normal 27.0-32.0 [facility] Comment on above: Performed By: #### L 500.2500, L100.0100 ####[facility] [address] [place], [address] MCHC (RBC) [Mass/Vol] 33.7 g/dL Normal 32-36 [facility] Comment on above: Performed By: #### L 500.2500, L100.0100 ####[facility] [address] [place], [address] MCV (RBC) [Entitic vol] 94.6 fL High 80-94 [facility] Comment on above: Performed By: #### L 500.2500, L100.0100 ####[facility] [address] [place], [address] Monocytes/100 WBC (Bld) 8.9 % Normal 0-10 [facility] Comment on above: Performed By: #### L 500.2500, L100.0100 ####[facility] [address] [place], [address] Neutrophils/100 WBC (Bld) 72.5 % High 47-70 [facility] Comment on above: Performed By: #### L 500.2500, L100.0100 ####[facility] [address] [place], [address] Nucleated RBC (Bld) [#/Vol] 0 10*3/uL Normal 0-5 [facility] Comment on above: Performed By: #### L 500.2500, L100.0100 ####[facility] [address] [place], [address] Platelet mean volume (Bld) [Entitic vol] 8.8 fL Normal 6.2-12.0 [facility] Comment on above: Performed By: #### L 500.2500, L100.0100 ####[facility] [address] [place], [address] Platelets (Bld) [#/Vol] 163 10*3/uL Normal 150-450 [facility] Comment on above: Performed By: #### L 500.2500, L100.0100 ####[facility] [address] [place], [address] RBC (Bld) [#/Vol] 3.86 10*6/uL Low 4.6-6.2 [facility] Comment on above: Performed By: #### L 500.2500, L100.0100 ####[facility] [address] [place], [address] RDW SD 47.3 fl High 35.1-43.9 [facility] Comment on above: Performed By: #### L 500.2500, L100.0100 ####[facility] [address] [place], [address] WBC (Bld) [#/Vol] 8.5 10*3/uL Normal 4.4-11.0 [facility] Comment on above: Performed By: #### L 500.2500, L100.0100 ####[facility] [address] [place], [address] Carbon dioxide, total [Moles /volume] in Central venous bloodOrdered By: Harjit Lam on 05-06-2025 CO2 [Moles/Vol] 22.0 mmol/L 21.0-32.0 [facility] Chloride assayOrdered By: Maria Elena Lam on 05-06-2025 Chloride [Moles/Vol] 111 mmol/L High 98-108 [facility] Eosinophil percentageOrdered By: Harjit Lam on 05-06-2025 Eosinophils/100 WBC (Bld) 1.2 % 0-5 [facility] Erythrocyte distribution wid th ratioOrdered By: Harjit Lam on 05-06-2025 Erythrocyte distribution width (RBC) [Ratio] 13.6 % 11.6-14.6 [facility] Erythrocyte distribution wid th standard deviationOrdered By: Harjit Lam on 05-06-2025 Erythrocyte distribution width (RBC) [Ratio] 47.3 fl High 35.1-43.9 [facility] Glomerular filtration rate ( GFR) estimation/1.73 sq m using serum, plasma, or whole bOrdered By: Harjit Lam on 05-06-2025 GFR/1.73 sq M.predicted among non-blacks MDRD (S/P/Bld) [Vol rate/Area] 53 mL/min/{1.73_m2} Low >60 [facility] Comment on above: mL/min/1.73m2 CKD-EP I Creatinine Equation (2020) Hematocrit Auto (Bld) [Volum e fraction]Ordered By: Harjit Lam on 05-06-2025 Hematocrit (Bld) [Volume fraction] 36.5 % Low 40-54 [facility] Hemoglobin measurementOrdere d By: Harjit Lam on 05-06-2025 Hemoglobin (Bld) [Mass/Vol] 12.3 g/dL Low 13.0-16.5 [facility] Immature granulocytes/100 WB C Auto (Bld)Ordered By: Harjit Lam on 05-06-2025 Immature granulocytes/100 WBC (Bld) 0.600 % 0.0-0.9 [facility] Comment on above: IG% - Immature Granu locytes (promyelocytes, myelocytes and metamyelocytes) > 1% indicates that a LEFT SHIFT is Present. MCV (mean corpuscular volume ) determinationOrdered By: Harjit Lam on 05-06-2025 MCV (RBC) [Entitic vol] 94.6 fL High 80-94 [facility] Mean corpuscular hemoglobin (MCH) determinationOrdered By: Harjit Lam on 05-06-2025 MCH (RBC) [Entitic mass] 31.9 pg 27.0-32.0 [facility] Mean corpuscular hemoglobin concentration (MCHC) determinationOrdered By: Harjit Lam on 05-06-2025 MCHC (RBC) [Mass/Vol] 33.7 g/dL 32-36 [facility] Mean platelet volume determi nationOrdered By: Harjit Lam on 05-06-2025 Platelet mean volume (Bld) [Entitic vol] 8.8 fL 6.2-12.0 [facility] Monocyte percentageOrdered B y: Harjit Lam on 05-06-2025 Monocytes/100 WBC (Bld) 8.9 % 0-10 [facility] Neutrophil percentageOrdered By: Harjit Lam on 05-06-2025 Neutrophils/100 WBC (Bld) 72.5 % High 47-70 [facility] Nucleated red blood cell per centageOrdered By: Harjit Lam on 05-06-2025 Nucleated RBC/100 WBC (Bld) [Ratio] 0 % 0-5 [facility] Platelet countOrdered By: Maria Elena Lam on 05-06-2025 Platelets (Bld) [#/Vol] 163 10*3/uL 150-450 [facility] Potassium measurement (mass/ volume)Ordered By: Harjit Lam on 05-06-2025 Potassium (Unsp spec) [Mass/Vol] 4.0 mmol/L 3.3-5.1 [facility] RBC Auto (Bld) [#/Vol]Ordere d By: Harjit Lam on 05-06-2025 RBC (Bld) [#/Vol] 3.86 10*6/uL Low 4.6-6.2 [facility] Serum creatinine measurement (mass/volume)Ordered By: Harjit Lam on 05-06-2025 Creatinine [Mass/Vol] 1.43 mg/dL High 0.70-1.20 [facility] Serum glucose measurement (m ass/volume)Ordered By: Harjit Lam on 05-06-2025 Glucose [Mass/Vol] 101 mg/dL High 70-99 [facility] Serum or plasma calcium eduardo urement (mass/volume)Ordered By: Harjit Lam on 05-06-2025 Calcium [Mass/Vol] 8.1 mg/dL 7.6-11.0 [facility] Serum or plasma urea nitroge n measurement (mass/volume)Ordered By: Harjit Lam on 05-06-2025 Urea nitrogen [Mass/Vol] 12 mg/dL 4-19 [facility] Sodium levelOrdered By: Harjit Lam on 05-06-2025 Sodium [Moles/Vol] 140 mmol/L 133-145 [facility] White blood cell (WBC) count Ordered By: Harjit Lam on 05-06-2025 WBC (Bld) [#/Vol] 8.5 10*3/uL 4.4-11.0 [facility] 12 Lead EKGon 05-05-2025 12 Lead EKG [facility] [address] [place] [address] 12 Lead EKG 05/05/25 0700 MR#: [id number] Acct: [id number] Name: RAMON COSTA Rep #: [id number] : [id number] From: Adrian Russ MD Attending Dr: Dr. Harjit Lam MD Status: DIS PORSHA Ordering Dr: Shankar Torres MD Date: 05/05/25 Location: [facility] [place] Sex: M C Admitted: 05/05/25 Test Reason [...] previous ECGs available Confirmed by Adrian Russ ([id number]), medical transcription editor ROXY OBRIEN ([id number]) on 05/08/2025 10:17:08 AM Referred By: BRIGITTE Confirmed By: Adrian Russ 05/08/25 1017 Date Adrian Russ MD CC: Dr. Shankar Torres MD; Dr. Harjit Lam MD; Jarad Rey MD Signed Normal [facility] Basic Metabolic Profile (BMP )on 05-05-2025 BUN/CRE 7.8 RATIO Low 10-20 [facility] Comment on above: Performed By: #### L 500.2500 #### [facility] [address] [place], [address] Calcium [Mass/Vol] 8.8 mg/dL Normal 7.6-11.0 [facility] Comment on above: Performed By: #### L 500.2500 #### [facility] [address] [place], [address] Chloride [Moles/Vol] 106 mmol/L Normal 98-108 [facility] Comment on above: Performed By: #### L 500.2500 #### [facility] [address] [place], [address] CO2 [Moles/Vol] 20.0 mmol/L Low 21.0-32.0 [facility] Comment on above: Performed By: #### L 500.2500 #### [facility] [address] [place], [address] Creatinine [Mass/Vol] 1.52 mg/dL High 0.70-1.20 [facility] Comment on above: Performed By: #### L 500.2500 #### [facility] [address] [place], [address] ECRCL 57.01 ml/min Normal 50-250 [facility] Comment on above: Performed By: #### L 500.2500 #### [facility] [address] [place], [address] GAP 12 Normal 5-15 [facility] Comment on above: Performed By: #### L 500.2500 #### [facility] [address] [place], [address] GFR/1.73 sq M.predicted among non-blacks MDRD (S/P/Bld) [Vol rate/Area] 50 mL/min/{1.73_m2} Low >60 [facility] Comment on above: Result Comment: mL/m in/1.73m2 CKD-EPI Creatinine Equation (2020) Performed By: #### L 500.2500 #### [facility] [address] [place], [address] Glucose [Mass/Vol] 116 mg/dL High 70-99 [facility] Comment on above: Performed By: #### L 500.2500 #### [facility] [address] [place], [address] Potassium [Moles/Vol] 3.6 mmol/L Normal 3.3-5.1 [facility] Comment on above: Performed By: #### L 500.2500 #### [facility] [address] [place], [address] Sodium [Moles/Vol] 138 mmol/L Normal 133-145 [facility] Comment on above: Performed By: #### L 500.2500 #### [facility] [address] [place], [address] Urea nitrogen [Mass/Vol] 12 mg/dL Normal 4-19 [facility] Comment on above: Performed By: #### L 500.2500 #### [facility] [address] [place], [address] CBC W/Diff, Automatedon 09-0 6-2024 Absolute Lymph 2.05 X10 3/uL Normal 0.83-4.51 [facility] Comment on above: Performed By: #### L 100.0100 #### [facility] [address] [place], [address] Absolute Neut 8.7 X10 3/uL High 2.0-7.7 [facility] Comment on above: Performed By: #### L 100.0100 #### [facility] [address] [place], [address] Basophils/100 WBC (Bld) 0.2 % Normal 0-1 [facility] Comment on above: Performed By: #### L 100.0100 #### [facility] [address] [place], [address] Eosinophils/100 WBC (Bld) 0.5 % Normal 0-5 [facility] Comment on above: Performed By: #### L 100.0100 #### [facility] [address] [place], [address] Erythrocyte distribution width (RBC) [Ratio] 13.3 % Normal 11.6-14.6 [facility] Comment on above: Performed By: #### L 100.0100 #### [facility] [address] [place], [address] Hematocrit (Bld) [Volume fraction] 43.0 % Normal 40-54 [facility] Comment on above: Performed By: #### L 100.0100 #### [facility] [address] [place], [address] Hemoglobin (Bld) [Mass/Vol] 14.9 g/dL Normal 13.0-16.5 [facility] Comment on above: Performed By: #### L 100.0100 #### [facility] [address] [place], [address] IG% 0.600 Normal 0.0-0.9 [facility] Comment on above: Result Comment: IG% - Immature Granulocytes (promyelocytes, myelocytes and metamyelocytes) > 1% indicates that a LEFT SHIFT is Present. Performed By: #### L 100.0100 #### [facility] [address] [place], [address] Lymphocytes/100 WBC (Bld) 17.1 % Low 19-41 [facility] Comment on above: Performed By: #### L 100.0100 #### [facility] [address], [address] MCH (RBC) [Entitic mass] 32.0 pg Normal 27.0-32.0 [facility] Comment on above: Performed By: #### L 100.0100 #### [facility] [address] [place], [address] MCHC (RBC) [Mass/Vol] 34.7 g/dL Normal 32-36 [facility] Comment on above: Performed By: #### L 100.0100 #### [facility] [address] [place], [address] MCV (RBC) [Entitic vol] 92.5 fL Normal 80-94 [facility] Comment on above: Performed By: #### L 100.0100 #### [facility] [address] [place], [address] Monocytes/100 WBC (Bld) 8.5 % Normal 0-10 [facility] Comment on above: Performed By: #### L 100.0100 #### [facility] [address] [place], [address] Neutrophils/100 WBC (Bld) 73.1 % High 47-70 [facility] Comment on above: Performed By: #### L 100.0100 #### [facility] [address] [place], [address] Nucleated RBC (Bld) [#/Vol] 0 10*3/uL Normal 0-5 [facility] Comment on above: Performed By: #### L 100.0100 #### [facility] [address] [place], [address] Platelet mean volume (Bld) [Entitic vol] 8.4 fL Normal 6.2-12.0 [facility] Comment on above: Performed By: #### L 100.0100 #### [facility] [address] [place], [address] Platelets (Bld) [#/Vol] 191 10*3/uL Normal 150-450 [facility] Comment on above: Performed By: #### L 100.0100 #### [facility] [address] [place], [address] RBC (Bld) [#/Vol] 4.65 10*6/uL Normal 4.6-6.2 [facility] Comment on above: Performed By: #### L 100.0100 #### [facility] [address] [place], [address] RDW SD 45.0 fl High 35.1-43.9 [facility] Comment on above: Performed By: #### L 100.0100 #### [facility] [address] [place], [address] WBC (Bld) [#/Vol] 12.0 10*3/uL High 4.4-11.0 [facility] Comment on above: Performed By: #### L 100.0100 #### [facility] [address] [place], [address] MR/POSTOP.ANEon 05-05-2025 [facility] [address] [place] [address] Anesthesia Postop Eval I 05/05/25 1004 MR#: [id number] Acct: [id number] Name: RAMON COSTA Rep #: [id number] : 1955 69 From: Shankar Torres MD PCP: Jarad Rey MD Status:ADM PORSHA Y Race: C Location: [place] [id number] Anesthesia: Postop Eval I Current Vital Signs [...] Eval 1 completed: Yes 05/05/25 1014 Date [facility]: Date CC: Signed Normal [facility] MR/[id number] 05-05-2025 MR/POSTOPAN2 [facility] Medical Records Department [address] [place] [address] Anesthesia Postop Eval II 05/05/25 1014 MR#: [id number] Acct: [id number] Name: RAMON COSTA Rep #: [id number] : 1955 69 From: Shankar Torres MD PCP: Jarad Rey MD Status:ADM PORSHA Y Race: C Location: [place] [id number] Anesthesia Postop Eval I Sum Postop Eval [...] No Vomiting: No 05/05/25 1015 Date Shankar Lujan Signature: Date CC: Signed Normal [facility] Operative Reporton 5 Operative Report [facility] Medical Records Department [address] [place] [address] Operative Report 05/05/25 0943 MR#: [id number] Acct: [id number] Name: RAMON COSTA Rep #: [id number] : 1955 69 From: Harjit Lam MD PCP: Jarad Rey MD Status:ADM PORSHA Location: [place] [address] Operative Report (Standard) Operative Information Date of Procedure: 05/05/25 Pre-Operative Diagnosis: Right ureteral calculi status post ESWL with multiple fragments in the ureter Post-Operative Diagnosis: The same Surgery/Procedure Performed: Cystoscopy right ureteroscopy laser lithotripsy of stones in the ureter and right stent placement inside trucker: No Type of Anesthesia: General RN Documented Start/Stop Times: Operation Date: 05/05/25 07:40 Case Time Anesthesia Start 05/05/25 07:44 Into Room 05/05/25 07:44 Procedure Start 05/05/25 08:04 Procedure Start Time: 08:04 Procedure Stop Time: 09:44 Select all DRAINS/GRAFTS/IMPLANTS that apply: Drains Drain details: 6 [place] by 26 cm stent Estimated Blood Loss: [...] went into the bladder with a 21 [place] rigid cystourethroscope put a wire up the [...] SCD's VTE Pharm Prophylaxis ordered?: No 05/05/25 8770 Cosigner Signature (if applicable): CC: Dr. Harjit Lam MD; Jarad Rey MD Signed Normal [facility] Bacteriaon 05-04-2025 Bacteria identified Cx Nom (U) Test: Urine Culture Specimen Source: Clean Catch/Voided Specimen Type: Urine Specimen Date: 05/04/20252313 Result Date: 05/06/2025725 Result Status: Final result Abnormal: No Resulting Lab: [facility] [address] [facility] [address] CULTURE No growth [facility] Comment on above: Performed By: #### 5 7021-8 #### SORIANO SHIRLEY ([id number]) [facility] ([facility]) [address] [place] [address] CBC W Auto Differential pane l (Bld)on 05-04-2025 Basophils (Bld) [#/Vol] 0.03 10*3/uL [facility] Basophils/100 WBC (Bld) 0.3 % 0.0 - 2.0 % [facility] Eosinophils (Bld) [#/Vol] 0.04 10*3/uL [facility] Eosinophils/100 WBC (Bld) 0.3 % 0.0 - 6.0 % [facility] Erythrocyte distribution width (RBC) [Ratio] 13.1 % 11.5 - 14.5 % [facility] Hematocrit (Bld) [Volume fraction] 43.6 % 41.0 - 52.0 % [facility] Hemoglobin (Bld) [Mass/Vol] 14.8 g/dL 13.5 - 17.5 g/dL [facility] Immature granulocytes (Bld) [#/Vol] 0.04 10*3/uL [facility] Immature granulocytes/100 WBC (Bld) 0.3 % 0.0 - 0.9 % [facility] Comment on above: Immature Granulocyte Count (IG) includes promyelocytes, myelocytes and metamyelocytes but does not include bands. Percent differential counts (%) should be interpreted in the context of the absolute cell counts (cells/UL). Interpretation and review of laboratory results Abnormal [facility] Lymphocytes (Bld) [#/Vol] 1.25 10*3/uL [facility] Lymphocytes/100 WBC (Bld) 10.9 % 13.0 - 44.0 % [facility] MCH (RBC) [Entitic mass] 31.4 pg 26.0 - 34.0 pg [facility] MCHC (RBC) [Mass/Vol] 33.9 g/dL 32.0 - 36.0 g/dL [facility] MCV (RBC) [Entitic vol] 92 fL 80 - 100 fL [facility] Monocytes (Bld) [#/Vol] 0.82 10*3/uL [facility] Monocytes/100 WBC (Bld) 7.1 % 2.0 - 10.0 % [facility] Neutrophils (Bld) [#/Vol] 9.34 10*3/uL High [facility] Comment on above: Percent differential counts (%) should be interpreted in the context of the absolute cell counts (cells/uL). Neutrophils/100 WBC (Bld) 81.1 % 40.0 - 80.0 % [facility] Nucleated RBC/100 WBC (Bld) [Ratio] 0.0 % [facility] Platelets (Bld) [#/Vol] 190 10*3/uL [facility] RBC (Bld) [#/Vol] 4.72 10*6/uL [facility] WBC (Bld) [#/Vol] 11.5 10*3/uL High [facility] Basophils (Bld) [#/Vol] 0.03 x10*3/uL Normal 0.00-0.10 [facility] Comment on above: Performed By: #### 5 7021-8 #### CHRISTIE WATSON ([id number]) [facility] ([facility]) [address] [place] [address] Basophils/100 WBC (Bld) 0.3 % Normal 0.0-2.0 [facility] Comment on above: Performed By: #### 5 7021-8 #### CHRISTIE WATSON ([id number]) [facility] ([facility]) [address] [place] [address] Eosinophils (Bld) [#/Vol] 0.04 x10*3/uL Normal 0.00-0.70 [facility] Comment on above: Performed By: #### 5 7021-8 #### CHRISTIE WATSON ([id number]) [facility] ([facility]) [address] [place] [address] Eosinophils/100 WBC (Bld) 0.3 % Normal 0.0-6.0 [facility] Comment on above: Performed By: #### 5 7021-8 #### CHRISTIE WATSON ([id number]) [facility] ([facility]) [address] [place] [address] Erythrocyte distribution width (RBC) [Ratio] 13.1 % Normal 11.5-14.5 [facility] Comment on above: Performed By: #### 5 7021-8 #### CHRISTIE WATSON ([id number]) [facility] ([facility]) [address] [place] [address] Hematocrit (Bld) [Volume fraction] 43.6 % Normal 41.0-52.0 [facility] Comment on above: Performed By: #### 5 7021-8 #### CHRISTIE WATSON ([id number]) [facility] ([facility]) [address] [place] [address] Hemoglobin (Bld) [Mass/Vol] 14.8 g/dL Normal 13.5-17.5 [facility] Comment on above: Performed By: #### 5 7021-8 #### CHRISTIE WATSON ([id number]) [facility] ([facility]) [address] [place] [address] Immature granulocytes (Bld) [#/Vol] 0.04 x10*3/uL Normal 0.00-0.70 [facility] Comment on above: Performed By: #### 5 7021-8 #### CHRISTIE WATSON ([id number]) [facility] ([facility]) [address] [place] [address] Immature granulocytes/100 WBC (Bld) 0.3 % Normal 0.0-0.9 [facility] Comment on above: Result Comment: Reshma ture Granulocyte Count (IG) includes promyelocytes, myelocytes and metamyelocytes but does not include bands. Percent differential counts (%) should be interpreted in the context of the absolute cell counts (cells/UL). Performed By: #### 5 7021-8 #### CHRISTIE WATSON ([id number]) [facility] ([facility]) [address] [place] [address] Lymphocytes (Bld) [#/Vol] 1.25 x10*3/uL Normal 1.20-4.80 [facility] Comment on above: Performed By: #### 5 7021-8 #### CHRISTIE WATSON ([id number]) [facility] ([facility]) [address] [place] [address] Lymphocytes/100 WBC (Bld) 10.9 % Normal 13.0-44.0 [facility] Comment on above: Performed By: #### 5 7021-8 #### CHRISTIE WATSON ([id number]) [facility] ([facility]) [address] [place] [address] MCH (RBC) [Entitic mass] 31.4 pg Normal 26.0-34.0 [facility] Comment on above: Performed By: #### 5 7021-8 #### CHRISTIE WATSON ([id number]) [facility] ([facility]) [address] [place] [address] MCHC (RBC) [Mass/Vol] 33.9 g/dL Normal 32.0-36.[address] [facility] Comment on above: Performed By: #### 5 7021-8 #### CHRISTIE WATSON ([id number]) [facility] ([facility]) [address] [place] [address] MCV (RBC) [Entitic vol] 92 fL Normal 80-100 [facility] Comment on above: Performed By: #### 5 7021-8 #### CHRISTIE WATSON ([id number]) [facility] ([facility]) [address] [place] [address] Monocytes (Bld) [#/Vol] 0.82 x10*3/uL Normal 0.10-1.00 [facility] Comment on above: Performed By: #### 5 7021-8 #### CHRISTIE WATSON ([id number]) [facility] ([facility]) [address] [place] [address] Monocytes/100 WBC (Bld) 7.1 % Normal 2.0-10.0 [facility] Comment on above: Performed By: #### 5 7021-8 #### CHRISTIE WATSON ([id number]) [facility] ([facility]) [address] [place] [address] Neutrophils (Bld) [#/Vol] 9.34 x10*3/uL High 1.20-7.70 [facility] Comment on above: Result Comment: Perc ent differential counts (%) should be interpreted in the context of the absolute cell counts (cells/uL). Performed By: #### 5 7021-8 #### CHRISTIE WATSON ([id number]) [facility] ([facility]) [address] [place] [address] Neutrophils/100 WBC (Bld) 81.1 % Normal 40.0-80.0 [facility] Comment on above: Performed By: #### 5 7021-8 #### CHRISTIE WATSON ([id number]) [facility] ([facility]) [address] [place] [address] Nucleated RBC/100 WBC (Bld) [Ratio] 0.0 /100 WBCs Normal 0.0-0.0 [facility] Comment on above: Performed By: #### 5 7021-8 #### CHRISTIE WATSON ([id number]) [facility] ([facility]) [address] [place] [address] Platelets (Bld) [#/Vol] 190 x10*3/uL Normal 150-450 [facility] Comment on above: Performed By: #### 5 7021-8 #### CHRISTIE WATSON ([id number]) [facility] ([facility]) [address] [place] [address] RBC (Bld) [#/Vol] 4.72 x10*6/uL Normal 4.50-5.90 [facility] Comment on above: Performed By: #### 5 7021-8 #### CHRISTIE WATSON ([id number]) [facility] ([facility]) [address] [place] [address] WBC (Bld) [#/Vol] 11.5 x10*3/uL High 4.4-11.3 [facility] Comment on above: Performed By: #### 5 7021-8 #### SORIANO SHIRLEY ([id number]) [facility] ([facility]) [address] [place] [address] CT ABDOMEN PELVIS W IV CONTR Emanuel 05-04-2025 CT ABDOMEN PELVIS W IV CONTRAST Interpreted By: Andrew Sosa, STUDY: CT ABDOMEN PELVIS W IV CONTRAST; 05/04/2025 11:06 pm INDICATION: Signs/Symptoms:Abdominal pain, history of kidney stones, nausea or vomiting. COMPARISON: CT ABDOMEN PELVIS WO IV CONTRAST 03/25/2025 ACCESSION NUMBER(S): [id number] ORDERING CLINICIAN: ELICIA LOVE TECHNIQUE: Axial CT [...] Andrew Sosa 05/04/2025 11:53 PM Dictation workstation: [id number] [facility] CT Abdomen and Pelvis W [...] Andrew Sosa 05/04/2025 11:53 PM Dictation workstation: [id number] [facility] Interpreted By: Andrew Sosa, STUDY: CT ABDOMEN PELVIS W IV CONTRAST; 05/04/2025 11:06 pm INDICATION: Signs/Symptoms:Abdominal pain, history of kidney stones, nausea or vomiting. 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 [facility] Andrew Sosa, DO - 05/04/2025 Interpreted By: Andrew Sosa, STUDY: CT ABDOMEN PELVIS W IV CONTRAST; 05/04/2025 11:06 pm INDICATION: Signs/Symptoms:Abdominal pain, history of kidney stones, nausea or vomiting. COMPARISON: CT ABDOMEN PELVIS WO IV CONTRAST 03/25/2025 ACCESSION NUMBER(S): [id number] ORDERING CLINICIAN: ELICIA LOVE TECHNIQUE: Axial CT [...] Andrew Sosa 05/04/2025 11:53 PM Dictation workstation: [id number] [facility] Work Phone: Radiology Study observation (narrative) [facility] Work Phone: CT Abdomen and Pelvis W cont rast IVOrdered By: Andrew Sosa on 05-04-2025 [facility] Work Phone: Comprehensive metabolic 2000 panelon 05-04-2025 Albumin BCP dye [Mass/Vol] 4.0 g/dL 3.4 - 5.0 g/dL [facility] ALP [Catalytic activity/Vol] 138 U/L High 33 - 136 U/L [facility] ALT With P-5'-P [Catalytic activity/Vol] 15 U/L 10 - 52 U/L [facility] Comment on above: Patients treated wit h Sulfasalazine may generate falsely decreased results for ALT. Anion gap [Moles/Vol] 12 mmol/L 10 - 2 0 mmol/L [facility] AST With P-5'-P [Catalytic activity/Vol] 15 U/L 9 - 39 U/L [facility] Bilirubin [Mass/Vol] 1.6 mg/dL High 0.0 - 1 .2 mg/dL [facility] Calcium [Mass/Vol] 9.3 mg/dL 8.6 - 10. 3 mg/dL [facility] Chloride [Moles/Vol] 103 mmol/L 98 - 10 7 mmol/L [facility] CO2 [Moles/Vol] 25 mmol/L 21 - 32 mmol/L [facility] Creatinine [Mass/Vol] 1.60 mg/dL High 0.50 - 1.30 mg/dL [facility] GFR/1.73 sq M.predicted among non-blacks MDRD (S/P/Bld) [Vol rate/Area] 47 mL/min/{1.73_m2} Low - PINF [facility] Comment on above: Calculations of ashely mated GFR are performed using the 2020 CKD-EPI Study Refit equation without the race variable for the IDMS-Traceable creatinine methods. https://jasn.asnjournals.org/content/early//ASN.311465 9769 Glucose [Mass/Vol] 138 mg/dL High 74 - 99 mg/dL [facility] Interpretation and review of laboratory results Abnormal [facility] Potassium [Moles/Vol] 3.9 mmol/L 3.5 - 5.3 mmol/L [facility] Protein [Mass/Vol] 6.4 g/dL 6.4 - 8.2 g/dL [facility] Sodium [Moles/Vol] 136 mmol/L 136 - 145 mmol/L [facility] Urea nitrogen [Mass/Vol] 14 mg/dL 6 - 23 mg/dL [facility] Albumin BCP dye [Mass/Vol] 4.0 g/dL Normal 3.4-5.0 [facility] Comment on above: Performed By: #### 2 432-8 #### CHRISTIE WATSON ([id number]) [facility] ([facility]) [address] [place] [address] ALP [Catalytic activity/Vol] 138 U/L High 33-136 [facility] Comment on above: Performed By: #### 2 4322-8 #### CRHISTIE WATSON ([id number]) [facility] ([facility]) [address] [place] [address] ALT With P-5'-P [Catalytic activity/Vol] 15 U/L Normal 10-52 [facility] Comment on above: Result Comment: Mary Jane ents treated with Sulfasalazine may generate falsely decreased results for ALT. Performed By: #### 2 4322-8 #### CHRISTIE WATSON ([id number]) [facility] ([facility]) [address] [place] [address] Anion gap [Moles/Vol] 12 mmol/L Normal 10-[address] [facility] Comment on above: Performed By: #### 2 4322-8 #### CHRISTIE WATSON ([id number]) [facility] ([facility]) [facility] [place] [address] AST With P-5'-P [Catalytic activity/Vol] 15 U/L Normal 9-39 [facility] Comment on above: Performed By: #### 2 4322-8 #### CHRISTIE WATSON ([id number]) [facility] ([facility]) [address] [place] [address] Bilirubin [Mass/Vol] 1.6 mg/dL High 0.0-1.2 [facility] Comment on above: Performed By: #### 2 4322-8 #### CHRITSIE WATSON ([id number]) [facility] ([facility]) [address] [place] [address] Calcium [Mass/Vol] 9.3 mg/dL Normal 8.6-10.3 [facility] Comment on above: Performed By: #### 2 4322-8 #### CHRISTIE WATSON ([id number]) [facility] ([facility]) [address] [place] [address] Chloride [Moles/Vol] 103 mmol/L Normal 98-107 [facility] Comment on above: Performed By: #### 2 4323-8 #### CHRISTIE WATSON ([id number]) [facility] ([facility]) [address] [place] [address] CO2 [Moles/Vol] 25 mmol/L Normal 21-32 [facility] Comment on above: Performed By: #### 2 4323-8 #### CHRISTIE WATSON ([id number]) [facility] ([facility]) [address] [place] [address] Creatinine [Mass/Vol] 1.60 mg/dL High 0.50-1.[address] [facility] Comment on above: Performed By: #### 2 432-8 #### CHRISTIE WATSON ([id number]) [facility] ([facility]) [address] [place] [address]2375 Glomerular filtration rate 47 mL/min/1.73m*2 Low >60 [facility] Comment on above: Result Comment: Calc ulations of estimated GFR are performed using the 2020 CKD-EPI Study Refit equation without the race variable for the IDMS-Traceable creatinine methods. https://jasn.asnjournals.org/content//ASN.294984 6787 Performed By: #### 2 4323-8 #### CHRISTIE WATSON ([id number]) [facility] ([facility]) [address] [place] [address] Glucose [Mass/Vol] 138 mg/dL High 74-99 [facility] Comment on above: Performed By: #### 2 4323-8 #### CHRISTIE WATSON ([id number]) [facility] ([facility]) [address] [place] [address] Potassium [Moles/Vol] 3.9 mmol/L Normal 3.5-5.[address] [facility] Comment on above: Performed By: #### 2 4323-8 #### CHRISTIE WATSON ([id number]) [facility] ([facility]) [address] [place] [address] Protein [Mass/Vol] 6.4 g/dL Normal 6.4-8.2 [facility] Comment on above: Performed By: #### 2 4323-8 #### CHRISTIE WATSON ([id number]) [facility] ([facility]) [address] [place] [address] Sodium [Moles/Vol] 136 mmol/L Normal 136-145 [facility] Comment on above: Performed By: #### 2 4323-8 #### CHRISTIE WATSON ([id number]) [facility] ([facility]) [address] [place] [address] Urea nitrogen [Mass/Vol] 14 mg/dL Normal 6-23 [facility] Comment on above: Performed By: #### 2 4323-8 #### CHRISTIE WATSON ([id number]) [facility] ([facility]) [address] [place] [address] Lactateon 05-04-2025 Lactate [Moles/Vol] 1.5 mmol/L 0.4 - 2. 0 mmol/L [facility] Lactate [Moles/Vol] 1.5 mmol/L Normal 0.4-2.0 [facility] Comment on above: Order Comment: Venip uncture immediately after or during the administration of Metamizole may lead to falsely low results. Testing should be performed immediately prior to Metamizole dosing. Performed By: #### 2 524-7 #### CHRISTIE WATSON ([id number]) [facility] ([facility]) [address] [place] [address] Lactate [Moles/Vol]on 2024 Interpretation and review of laboratory results Normal [facility] Venipuncture immedia tely after or during the administration of Metamizole may lead to falsely low results. Testing should be performed immediately prior to Metamizole dosing. [facility] Lipaseon 05-04-2025 Lipase [Catalytic activity/Vol] 12 U/L 9 - 82 U/L [facility] Lipase [Catalytic activity/V ol]on 05-04-2025 Interpretation and review of laboratory results Normal [facility] Venipuncture immedia tely after or during the administration of Metamizole may lead to falsely low results. Testing should be performed immediately prior to Metamizole dosing. [facility] No Panel Informationon 05-04 [facility] Triacylglycerol lipaseon Lipase [Catalytic activity/Vol] 12 U/L Normal 9-82 [facility] Comment on above: Order Comment: Venip uncture immediately after or during the administration of Metamizole may lead to falsely low results. Testing should be performed immediately prior to Metamizole dosing. Performed By: #### 5 7021-8 #### SORIANO SHIRLEY ([id number]) [facility] ([facility]) [address] [place] [address] Urinalysis complete W Reflex Culture panel (U)on 05-04-2025 Appearance (U) Clear Clear [facility] Bilirubin (U) [Mass/Vol] Negative NEGATIVE mg/dL [facility] Color (U) Dark-Yellow Light-Yellow , Yellow, Dark-Yellow [facility] Glucose Auto test strip (U) [Mass/Vol] Normal Normal mg/dL [facility] Interpretation and review of laboratory results Abnormal [facility] Ketones (U) [Mass/Vol] Negative NEGATIVE mg/dL [facility] Leukocyte esterase Auto test strip Ql (U) Negative NEGATIVE [facility] Nitrite Auto test strip Ql (U) 1+ Abnormal NEGATIVE [facility] pH (U) 6.5 [pH] 5.0, 5.5, 6.0, 6.5, 7.0, 7.5, 8.0 [facility] Protein (U) [Mass/Vol] Negative NEGATIVE, 10 (TRACE), 20 (TRACE) mg/dL [facility] RBC (U) [#/Vol] Negative NEGATIVE mg/dL [facility] Specific gravity (U) [Rel density] 1.015 1.005 - 1.035 [facility] Urobilinogen (U) [Mass/Vol] Normal Normal mg/dL [facility] Appearance (U) Clear Normal Clear [facility] Comment on above: Performed By: #### 5 7021-8 #### CHRISTIE WATSON ([id number]) [facility] ([facility]) [address] [place] [address] Bilirubin (U) [Mass/Vol] Negative Normal NEGATIVE [facility] Comment on above: Performed By: #### 5 7021-8 #### CHRISTIE WATSON ([id number]) [facility] ([facility]) [address] [place] [address] Color (U) Dark-Yellow Normal Light-Yellow , Yellow, Dark-Yellow [facility] Comment on above: Performed By: #### 5 7021-8 #### CHRISTIE WATSON ([id number]) [facility] ([facility]) [address] [place] [address] 44297 Glucose Auto test strip (U) [Mass/Vol] Normal Normal Normal [facility] Comment on above: Performed By: #### 5 7021-8 #### CHRISTIE WATSON ([id number]) [facility] ([facility]) [address] [place] [address] 15967 Ketones (U) [Mass/Vol] Negative Normal NEGATIVE [facility] Comment on above: Performed By: #### 5 7021-8 #### CHRISTIE WATSON ([id number]) [facility] ([facility]) [address] [place] [address] 48041 Leukocyte esterase Auto test strip Ql (U) Negative Normal NEGATIVE [facility] Comment on above: Performed By: #### 5 7021-8 #### CHRISTIE WATSON ([id number]) [facility] ([facility]) [address] [place] [address] 55237 Nitrite Auto test strip Ql (U) 1+ Abnormal NEGATIVE [facility] Comment on above: Performed By: #### 5 7021-8 #### CHRISTIE WATSON ([id number]) [facility] ([facility]) [address] [place] [address] 13474 pH (U) 6.5 [pH] Normal 5.0, 5.5, 6.0, 6.5, 7.0, 7.5, 8.0 [facility] Comment on above: Performed By: #### 5 7021-8 #### CHRISTIE WATSON ([id number]) [facility] ([facility]) [address] [place] [address] 88874 Protein (U) [Mass/Vol] Negative Normal NEGATIVE, 10 (TRACE), 20 (TRACE) [facility] Comment on above: Performed By: #### 5 7021-8 #### CHRISTIE WATSON ([id number]) [facility] ([facility]) [address] [place] [address] 44035 RBC (U) [#/Vol] Negative Normal NEGATIVE [facility] Comment on above: Performed By: #### 5 7021-8 #### CHRISTIE WATSON ([id number]) [facility] ([facility]) [address] [place] [address] 80015 Specific gravity (U) [Rel density] 1.015 Normal 1.005-1.035 [facility] Comment on above: Performed By: #### 5 7021-8 #### CHRISTIE WATSON ([id number]) [facility] ([facility]) [address] [place] [address] 37355 Urobilinogen (U) [Mass/Vol] Normal Normal Normal [facility] Comment on above: Performed By: #### 5 7021-8 #### CHRISTIE WATSON ([id number]) [facility] ([facility]) [address] [place] [address] 60116 Urinalysis microscopic panel Auto Ql (U)on 05-04-2025 Interpretation and review of laboratory results Normal [facility] RBC Auto (Urine sed) [#/Area] NONE NONE, 1-2, 3-5 /HPF [facility] WBC Auto (Urine sed) [#/Area] 1-5 1-5, NONE /HPF [facility] RBC Auto (Urine sed) [#/Area] NONE Normal NONE, 1-2, 3-5 [facility] Comment on above: Performed By: #### 5 7021-8 #### CHRISTIE WATSON ([id number]) [facility] ([facility]) [address] [place] [address] WBC Auto (Urine sed) [#/Area] 1-5 Normal 1-5, NONE [facility] Comment on above: Performed By: #### 5 7021-8 #### SORIANO SHIRLEY ([id number]) [facility] ([facility]) [address] [place] [address] Abdomen Single Viewon 2024 Abdomen Single View [facility] Imaging Services [address] [place] [address] Abdomen Single View MR#: [id number] Acct: [id number] Name: RAMON COSTA Rep #: [id number] : 1955 M 69 From: Gabriel Bernal MD PCP: Jarad Rey MD [facility] Study: Abdomen Single View Date of Exam: 04/25/25 Exam# [id number] Ordering Dr: Harjit Lam MD EXAM: XR [...] measuring up to 10 mm. Reading Location: [id number] CC: Dr. Harjit Lam MD; Jarad Rey MD Frame Table Operator Helper: Signed Normal [facility] Discharge Instructionon 03-31 Discharge Instruction [facility] Medical Records Department [address] [place] [address] Instructions for Home/Discharge Instructions 04/25/25 1547 MR#: [id number] Acct: [id number] Name: RAMON COSTA Rep #: [id number] : 1955 69 From: Harjit Lam MD [...] Up With: Harjit Lam MD When: Call [phone] for an appointment Test Results: Test results from this visit will be discussed in further detail at your follow-up appointment, if applicable. Discharge Plan Admission Primary Reason for Your Visit: ESWL Attending Provider: Harjit Lam Primary Care Provider: Jarad Rey Instructions Print Language: Bruneian Discharge Orders/Prescriptions Prescriptions: New ciprofloxacin HCl [Cipro] [...] can be placed): Home, Self Care 04/25/25 8901 Harjit Lam MD CC: Jarad Rey MD Signed ADDENDUM by Dr. Harjit Lam MD on 04/25/25 at 1547 Next week with an KUB prior to appt. with me. 04/25/25 1547 Harjit Lam MD cc: Jarad Rey MD * Signed [facility] MR/POSTOP.ANEon 04-25-2025 MR/POSTOP.ANE [facility] Medical Records Department [address] [facility] [address] [place] [address] Anesthesia Postop Eval I 04/25/25 164 MR#: [id number] Acct: [id number] Name: RAMON COSTA Rep #: [id number] : 1955 69 From: Gonzalo Saucedo CRNA PCP: Jarad Rey MD Status:REG SD Y Race: C Location: [place] [address] Anesthesia: Postop Eval I Current Vital Signs [...] Eval 1 completed: Yes 04/25/251647 Date Gonzalo Saucedo CRNA Cosign Signature: Date CC: Signed [facility] MR/ILEPSIVB5ko 04-25-2025 MR/POSTOPAN2 [facility] Medical Records Department [address] [place] [address] Anesthesia Postop Eval II 04/25/25 1811 MR#: [id number] Acct: [id number] Name: RAMON COSTA Rep #: [id number] : 1955 69 From: Delonte Israel MD PCP: Jarad Rey MD Status:DEP [facility] Y Race: C Location: [facility] Anesthesia Postop Eval I Sum Postop Eval Completion status Anesthesia document: Postop Eval 1 completed: Yes Anesthesia Postop Eval I Summary Anesthesia Postop Eval I Summary: Anesthesia Postop Eval I: Assessment Summary Airway patent Yes 04/25/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 Spontaneous unlabored Yes 04/25/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 respirations Mental status Awake 04/25/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 nausea No 04/25/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 Vomiting No 04/25/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 Anesthesia Postop Eval I: Fluid Summary Crystalloid volume administer 900 04/25/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 (ml) Colloids volume administered ( ml) Blood Product volume administered (ml) Total IV fluid infused 900 04/25/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 Anesthesia Postop Eval I: Summary Notes Anesthesia Complication No 04/25/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 Anesthesia Complication Comment: Post-operative progress note Anesthesia: Postop Eval II Evaluation Mental status: Awake Pain Level: 0 nausea: No Vomiting: No Complications Anesthesia Complication: No 04/25/25 181 Date Delonte Israel MD Cosigner Signature: Date CC: Signed [facility] Operative Reporton Operative Report [facility] Medical Records Department [address] [place] [address] Operative Report 04/25/25 1620 MR#: [id number] Acct: [id number] Name: RAMON COSTA Rep #: [id number] : 1955 69 From: Harjit Lam MD PCP: Jarad Rey MD Status:REG [facility] Location: [place] [address]-1 Operative Report (Standard) Operative Information Date of Procedure: 04/25/25 Pre-Operative Diagnosis: Right kidney stones Post-Operative Diagnosis: same Surgery/Procedure Performed: Cystoscopy right stent placement and right ESWL inside 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 Using a 21 [place] rigid cystourethroscope the entire length of the urethra was normal then went into the bladder. Identified the trigone the left and right ureteral orifice. I then cannulated the right ureteral orifice and advanced a wire up into the kidney. I then backloaded a 5 [place] open ended catheter over the wire and injected contrast to delineate the anatomy. After the retrograde was performed I then used fluoroscopic images and guidance to advanced a wire up into the kidney and over the 0.038 glidewire I advanced a 6 [place] by 26 cm double pigtail stent. I [...] SCD's VTE Pharm Prophylaxis ordered?: No 04/25/25 6058 Cosigner Signature (if applicable): CC: Dr. 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 Hx Hospitalization No 04/13/25 13:21 Any Problems [...] take am of surgery PONV PONV - 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: PONV - 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 Female No 04/13/25 13:21 HX of Motion Sickness No 04/13/25 13:21 HX of N/V After Surgery No 04/13/25 13:21 Non-Smoker Yes 04/13/25 13:21 Duration of Surgery greater Yes 04/13/25 13:21 than 60 minutes Number of Risk Factors 2 04/13/25 13:21 PONV Score Moderate Risk 04/13/25 13:21 Respiratory Assessment Respiratory Assessment - 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: Respiratory Tract Infection Hx - 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 Hx Respiratory Tract Infection No 04/13/25 13:21 STOP Sleep Apnea STOP Sleep Apnea - 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: STOP Sleep Apnea - 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 Hx Hypertension Yes: CONTROLLED WITH MED 04/13/25 [...] Tobacco Use History Tobacco Use History - 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: Tobacco Use History - 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 Tobacco Use Smoking Status Never smoker 04/13/25 13:21 Hx Tobacco Use No 04/13/25 13:21 Years Smoking Packs Smoked per Day Smoking Cessation Date was within the last 15 years Hx Smoking Cessation Date Hx Smoking Cessation Counseling Hematologic Medial History Hematologic Hx - 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: 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 Normal [facility] Abdomen Single Viewon 2024 Abdomen Single View [facility] Imaging Services [address] [place] [address] Abdomen Single View MR#: [id number] Acct: [id number] Name: RAMON COSTA Rep #: [id number] : 1955 M 69 From: Aryan Guerrero MD PCP: Jarad Rey MD Status: REG CLI Study: Abdomen Single View Date of Exam: 04/10/25 Exam# [id number] Ordering Dr: Melba Barr PROCEDURE: ABDOMEN SINGLE [...] Bony structures show degenerative change Reading Location: [id number] CC: Jarad Rey MD; Melba Barr Frame Table Operator Helper: Signed Normal [facility] PSA,Total - Annual Screenon 04-10-2025 PSA,TOT SCREEN 2.38 ng/mL Normal 0.02-4.00 [facility] Comment on above: Result Comment: This [...] baseline values. Performed By: #### L 501.9910 ####[facility] [id number] [place], [address] US GALLBLADDER RUQon 025 US GALLBLADDER RUQ EXAMINATION: RIGHT UPPER QUADRANT ULTRASOUND 04/09/2025 10:42 am COMPARISON: U/S abdomen limited 03/06/2024, CT abdomen/pelvis 08/10/2023 HISTORY: ORDERING SYSTEM PROVIDED HISTORY: Gallbladder polyp TECHNOLOGIST PROVIDED HISTORY: This procedure can be scheduled via [employer]. What reading provider will be dictating this [...] Cas Alexander MD 04/09/25 Final result Normal [facility] US Gallbladderon 04-09-2025 1. Diffuse hepatic steatosis. 2. Cholelithiasis without sonographic evidence of acute cholecystitis. 3. 0.6 cm gallbladder polyp. 4. Right renal cortical thinning. 5. 7.9 cm debris containing right renal cyst. [facility] EXAMINATION: RIGHT UPPER QUADRANT ULTRASOUND 04/09/2025 10:42 am COMPARISON: U/S abdomen limited 03/06/2024, CT abdomen/pelvis 08/10/2023 HISTORY: ORDERING SYSTEM PROVIDED HISTORY: Gallbladder polyp TECHNOLOGIST PROVIDED HISTORY: This procedure can be scheduled via [employer]. What reading provider will be dictating this [...] is a 7.9 cm debris containing cyst. [facility] SlCas vences MD - 04/09/2025 EXAMINATION: RIGHT UPPER QUADRANT ULTRASOUND 04/09/2025 10:42 am COMPARISON: U/S abdomen limited 03/06/2024, CT abdomen/pelvis 08/10/2023 HISTORY: ORDERING SYSTEM PROVIDED HISTORY: Gallbladder polyp TECHNOLOGIST PROVIDED HISTORY: This procedure can be scheduled via [employer]. What reading provider will be dictating this [...] 7.9 cm debris containing right renal cyst. [facility] Radiology Study observation (narrative) [facility] US GallbladderOrdered By: Robert Alexander on 04-09-2025 [facility] [employer] Work Phone: Bacteriaon 03-25-2025 Bacteria identified Cx Nom (U) Test: Urine Culture Specimen Source: Clean Catch/Voided Specimen Type: Urine Specimen Date: 03/25/20252250 Result Date: 03/27/2025804 Result Status: Final result Abnormal: No Resulting Lab: [facility] [address] [place] [address] CULTURE No growth [facility] Comment on above: Performed By: #### 6 30-4 #### SULLY Schmidt ([id number]) [facility] ([facility]) [address] [place] [address] Basic metabolic 2000 panelon 03-25-2025 Anion gap [Moles/Vol] 9 mmol/L Low 10 - 2 0 mmol/L [facility] Calcium [Mass/Vol] 8.8 mg/dL 8.6 - 10. 3 mg/dL [facility] Chloride [Moles/Vol] 106 mmol/L 98 - 10 7 mmol/L [facility] CO2 [Moles/Vol] 27 mmol/L 21 - 32 mmol/L [facility] Creatinine [Mass/Vol] 1.40 mg/dL High 0.50 - 1.30 mg/dL [facility] GFR/1.73 sq M.predicted among non-blacks MDRD (S/P/Bld) [Vol rate/Area] 55 mL/min/{1.73_m2} Low - PINF [facility] Comment on above: Calculations of ashely mated GFR are performed using the 2020 CKD-EPI Study Refit equation without the race variable for the IDMS-Traceable creatinine methods. https://kody.asnjournals.org/content//ASN.543046 2267 Glucose [Mass/Vol] 105 mg/dL High 74 - 99 mg/dL [facility] Interpretation and review of laboratory results Abnormal [facility] Potassium [Moles/Vol] 3.8 mmol/L 3.5 - 5.3 mmol/L [facility] Sodium [Moles/Vol] 138 mmol/L 136 - 145 mmol/L [facility] Urea nitrogen [Mass/Vol] 12 mg/dL 6 - 23 mg/dL [facility] Anion gap [Moles/Vol] 9 mmol/L Low 10-[address] [facility] Comment on above: Performed By: #### 2 4321-2 #### CHRISTIE WATSON ([id number]) [facility] ([facility]) [address] [place] [address] Calcium [Mass/Vol] 8.8 mg/dL Normal 8.6-10.3 [facility] Comment on above: Performed By: #### 2 4321-2 #### CHRISTIE WATSON ([id number]) [facility] ([facility]) [address] [place] [address] Chloride [Moles/Vol] 106 mmol/L Normal 98-107 [facility] Comment on above: Performed By: #### 2 4321-2 #### CHRISTIE WATSON ([id number]) [facility] ([facility]) [facility] [place] [address] CO2 [Moles/Vol] 27 mmol/L Normal 21-32 [facility] Comment on above: Performed By: #### 2 4321-2 #### CHRISTIE WATSON ([id number]) [facility] ([facility]) [facility] [place] [address] Creatinine [Mass/Vol] 1.40 mg/dL High 0.50-1.[address] [facility] Comment on above: Performed By: #### 2 4321-2 #### CHRISTIE WATSON ([id number]) [facility] ([facility]) [address] [place] [address] 87618 Glomerular filtration rate 55 mL/min/1.73m*2 Low >60 [facility] Comment on above: Result Comment: Calc ulations of estimated GFR are performed using the 2020 CKD-EPI Study Refit equation without the race variable for the IDMS-Traceable creatinine methods. https://jasn.asnjournals.org/content/early/ASN.434392 4505 Performed By: #### 2 4321-2 #### CHRISTIE WATSON ([id number]) [facility] ([facility]) [address] [place] [address] 93656 Glucose [Mass/Vol] 105 mg/dL High 74-99 [facility] Comment on above: Performed By: #### 2 4321-2 #### CHRISTIE WATSON ([id number]) [facility] ([facility]) [address] [place] [address] Potassium [Moles/Vol] 3.8 mmol/L Normal 3.5-5.[address] [facility] Comment on above: Performed By: #### 2 4321-2 #### CHRISTIE WATSON ([id number]) [facility] ([facility]) [address] [place] [address] 62766 Sodium [Moles/Vol] 138 mmol/L Normal 136-145 [facility] Comment on above: Performed By: #### 2 4321-2 #### CHRISTIE WATSON ([id number]) [facility] ([facility]) [address] [place] [address] 91885 Urea nitrogen [Mass/Vol] 12 mg/dL Normal 6-23 [facility] Comment on above: Performed By: #### 2 4321-2 #### CHRISTIE WATSON ([id number]) [facility] ([facility]) [address] [place] [address] 64755 CBC W Auto Differential pane l (Bld)on 03-25-2025 Basophils (Bld) [#/Vol] 0.04 10*3/uL [facility] Basophils/100 WBC (Bld) 0.4 % 0.0 - 2.0 % [facility] Eosinophils (Bld) [#/Vol] 0.23 10*3/uL [facility] Eosinophils/100 WBC (Bld) 2.5 % 0.0 - 6.0 % [facility] Erythrocyte distribution width (RBC) [Ratio] 14.0 % 11.5 - 14.5 % [facility] Hematocrit (Bld) [Volume fraction] 43.6 % 41.0 - 52.0 % [facility] Hemoglobin (Bld) [Mass/Vol] 14.7 g/dL 13.5 - 17.5 g/dL [facility] Immature granulocytes (Bld) [#/Vol] 0.02 10*3/uL [facility] Immature granulocytes/100 WBC (Bld) 0.2 % 0.0 - 0.9 % [facility] Comment on above: Immature Granulocyte Count (IG) includes promyelocytes, myelocytes and metamyelocytes but does not include bands. Percent differential counts (%) should be interpreted in the context of the absolute cell counts (cells/UL). Lymphocytes (Bld) [#/Vol] 2.64 10*3/uL [facility] Lymphocytes/100 WBC (Bld) 28.4 % 13.0 - 44.0 % [facility] MCH (RBC) [Entitic mass] 31.7 pg 26.0 - 34.0 pg [facility] MCHC (RBC) [Mass/Vol] 33.7 g/dL 32.0 - 36.0 g/dL [facility] MCV (RBC) [Entitic vol] 94 fL 80 - 100 fL [facility] Monocytes (Bld) [#/Vol] 0.87 10*3/uL [facility] Monocytes/100 WBC (Bld) 9.4 % 2.0 - 10.0 % [facility] Neutrophils (Bld) [#/Vol] 5.50 10*3/uL [facility] Comment on above: Percent differential counts (%) should be interpreted in the context of the absolute cell counts (cells/uL). Neutrophils/100 WBC (Bld) 59.1 % 40.0 - 80.0 % [facility] Nucleated RBC/100 WBC (Bld) [Ratio] 0.0 % [facility] Platelets (Bld) [#/Vol] 189 10*3/uL [facility] RBC (Bld) [#/Vol] 4.64 10*6/uL [facility] WBC (Bld) [#/Vol] 9.3 10*3/uL [facility] Basophils (Bld) [#/Vol] 0.04 x10*3/uL Normal 0.00-0.10 [facility] Comment on above: Performed By: #### 5 7021-8 #### CHRISTIE WATSON ([id number]) [facility] ([facility]) [address] [place] [address] 87[address] Basophils/100 WBC (Bld) 0.4 % Normal 0.0-2.0 [facility] Comment on above: Performed By: #### 5 7021-8 #### CHRISTIE WATSON ([id number]) [facility] ([facility]) [address] [place] [address] 69291 Eosinophils (Bld) [#/Vol] 0.23 x10*3/uL Normal 0.00-0.70 [facility] Comment on above: Performed By: #### 7021-8 #### CHRISTIE WATSON ([id number]) [facility] ([facility]) [address] [place] [address] 46570 Eosinophils/100 WBC (Bld) 2.5 % Normal 0.0-6.0 [facility] Comment on above: Performed By: #### 5 7021-8 #### CHRISTIE WATSON ([id number]) [facility] ([facility]) [address] [place] [address] 05880 Erythrocyte distribution width (RBC) [Ratio] 14.0 % Normal 11.5-14.5 [facility] Comment on above: Performed By: #### 7021-8 #### CHRISTIE WATSON ([id number]) [facility] ([facility]) [address] [place] [address] 32502 Hematocrit (Bld) [Volume fraction] 43.6 % Normal 41.0-52.0 [facility] Comment on above: Performed By: #### 7021-8 #### CHRISTIE WATSON ([id number]) [facility] ([facility]) [address] [place] [address] 32949 Hemoglobin (Bld) [Mass/Vol] 14.7 g/dL Normal 13.5-17.5 [facility] Comment on above: Performed By: #### 5 7021-8 #### CHRISTIE WATSON ([id number]) [facility] ([facility]) [address] [place] [address] 16597 Immature granulocytes (Bld) [#/Vol] 0.02 x10*3/uL Normal 0.00-0.70 [facility] Comment on above: Performed By: #### 5 7021-8 #### CHRISTIE WATSON ([id number]) [facility] ([facility]) [address] [place] [address] 25729 Immature granulocytes/100 WBC (Bld) 0.2 % Normal 0.0-0.9 [facility] Comment on above: Result Comment: Reshma ture Granulocyte Count (IG) includes promyelocytes, myelocytes and metamyelocytes but does not include bands. Percent differential counts (%) should be interpreted in the context of the absolute cell counts (cells/UL). Performed By: #### 5 7021-8 #### CHRISTIE WATSON ([id number]) [facility] ([facility]) [address] [place] [address] 41856 Lymphocytes (Bld) [#/Vol] 2.64 x10*3/uL Normal 1.20-4.80 [facility] Comment on above: Performed By: #### 5 7021-8 #### CHRISTIE WATSON ([id number]) [facility] ([facility]) [address] [place] [address] 89385 Lymphocytes/100 WBC (Bld) 28.4 % Normal 13.0-44.0 [facility] Comment on above: Performed By: #### 5 7021-8 #### CHRISTIE WATSON ([id number]) [facility] ([facility]) [address] [place] [address] 18156 MCH (RBC) [Entitic mass] 31.7 pg Normal 26.0-34.0 [facility] Comment on above: Performed By: #### 5 7021-8 #### CHRISTIE WATSON ([id number]) [facility] ([facility]) [address] [place] [address] 11414 MCHC (RBC) [Mass/Vol] 33.7 g/dL Normal 32.0-36.[address] [facility] Comment on above: Performed By: #### 5 7021-8 #### CHRISTIE WATSON ([id number]) [facility] ([facility]) [address] [place] [address] 36299 MCV (RBC) [Entitic vol] 94 fL Normal 80-100 [facility] Comment on above: Performed By: #### 5 7021-8 #### CHRISTIE WATSON ([id number]) [facility] ([facility]) [address] [place] [address] 92130 Monocytes (Bld) [#/Vol] 0.87 x10*3/uL Normal 0.10-1.00 [facility] Comment on above: Performed By: #### 5 7021-8 #### CHRISTIE WATSON ([id number]) [facility] ([facility]) [address] [place] [address] 96270 Monocytes/100 WBC (Bld) 9.4 % Normal 2.0-10.0 [facility] Comment on above: Performed By: #### 5 7021-8 #### CHRISTIE WATSON ([id number]) [facility] ([facility]) [address] [place] [address] 42478 Neutrophils (Bld) [#/Vol] 5.50 x10*3/uL Normal 1.20-7.70 [facility] Comment on above: Result Comment: Perc ent differential counts (%) should be interpreted in the context of the absolute cell counts (cells/uL). Performed By: #### 5 7021-8 #### CHRISTIE WATSON ([id number]) [facility] ([facility]) [address] [place] [address] 87502 Neutrophils/100 WBC (Bld) 59.1 % Normal 40.0-80.0 [facility] Comment on above: Performed By: #### 5 7021-8 #### CHRISTIE WATSON ([id number]) [facility] ([facility]) [address] [place] [address] 24917 Nucleated RBC/100 WBC (Bld) [Ratio] 0.0 /100 WBCs Normal 0.0-0.0 [facility] Comment on above: Performed By: #### 5 7021-8 #### CHRISTIE WATSON ([id number]) [facility] ([facility]) [address] [place] [address] 72748 Platelets (Bld) [#/Vol] 189 x10*3/uL Normal 150-450 [facility] Comment on above: Performed By: #### 5 7021-8 #### CHRISTIE WATSON ([id number]) [facility] ([facility]) [address] [place] [address] 64684 RBC (Bld) [#/Vol] 4.64 x10*6/uL Normal 4.50-5.90 [facility] Comment on above: Performed By: #### 5 7021-8 #### CHRISTIE WATSON ([id number]) [facility] ([facility]) [address] [place] [address] 67000 WBC (Bld) [#/Vol] 9.3 x10*3/uL Normal 4.4-11.3 [facility] Comment on above: Performed By: #### 5 7021-8 #### CHRISTIE WATSON ([id number]) [facility] ([facility]) [address] [place] [address] CT ABDOMEN PELVIS WO IV CONT [facility] [place] 03-25-2025 CT ABDOMEN PELVIS WO IV CONTRAST Interpreted By: Maykel Ruano, STUDY: CT ABDOMEN PELVIS WO IV CONTRAST; 03/25/2025 10:02 pm INDICATION: Signs/Symptoms:Hematuria history of kidney stones. COMPARISON: CT abdomen pelvis 08/10/2017. ACCESSION NUMBER(S): [id number] ORDERING CLINICIAN: ZAK ALVAREZ TECHNIQUE: CT of [...] Maykel Ruano 03/25/2025 10:47 PM Dictation workstation: [id number] [facility] CT Abdomen WO contraston 1. No acute abnormal ity in the abdomen/pelvis. Multiple bilateral intrarenal calculi without hydronephrosis or obstructive nephrolithiasis. Bilateral renal cysts. Prostatomegaly, clinical correlation for prostate etiology of hematuria recommended. 2. Cholelithiasis without cholecystitis. Hepatomegaly. Signed by: Maykel Ruano 03/25/2025 10:47 PM Dictation workstation: [id number] Interpreted By: Maykel Handley, STUDY: CT ABDOMEN PELVIS WO IV CONTRAST; 03/25/2025 10:02 pm INDICATION: Signs/Symptoms:Hematuria history of kidney stones. COMPARISON: CT abdomen pelvis 08/10/2017. ACCESSION NUMBER(S): [id number] ORDERING CLINICIAN: ZAK ALVAREZ TECHNIQUE: CT of [...] COMPARISON: CT abdomen pelvis 08/10/2017. ACCESSION NUMBER(S): [id number] ORDERING CLINICIAN: ZAK ALVAREZ TECHNIQUE: CT of [...] Maykel Ruano 03/25/2025 10:47 PM Dictation workstation: [id number] [facility] Work Phone: Radiology Study observation (narrative) [facility] Work Phone: CT Abdomen WO contrastOrdere d By: Maykel Ruano on 03-25-2025 [facility] Work Phone: No Panel Informationon 03-25 Interpretation and review of laboratory results Abnormal [facility] Urinalysis complete W Reflex Culture panel (U)on 03-25-2025 Appearance (U) Turbid Abnormal Clear [facility] Bilirubin (U) [Mass/Vol] Negative NEGATIVE mg/dL [facility] Color (U) Light-Brown Abnormal Light-Yellow , Yellow, Dark-Yellow [facility] Glucose Auto test strip (U) [Mass/Vol] Normal Normal mg/dL [facility] Ketones (U) [Mass/Vol] Negative NEGATIVE mg/dL [facility] Leukocyte esterase Auto test strip Ql (U) 250 Javad/uL Abnormal NEGATIVE [facility] Nitrite Auto test strip Ql (U) Negative NEGATIVE [facility] pH (U) 6.5 [pH] 5.0, 5.5, 6.0, 6.5, 7.0, 7.5, 8.0 [facility] Protein (U) [Mass/Vol] 30 (1+) Abnormal NEGATIVE, 10 (TRACE), 20 (TRACE) mg/dL [facility] RBC (U) [#/Vol] OVER (3+) Abnormal NEGATIVE mg/dL [facility] Specific gravity (U) [Rel density] 1.012 1.005 - 1.035 [facility] Urobilinogen (U) [Mass/Vol] Normal Normal mg/dL [facility] OVER is reported whe n the result is greater than the clinically reportable range. [facility] Appearance (U) Turbid Normal Clear [facility] Comment on above: Order Comment: OVER is reported when the result is greater than the clinically reportable range. Performed By: #### 5 8077-9 #### SORIANO SHIRLEY ([id number]) [facility] ([facility]) [address] [place] [address] Bilirubin (U) [Mass/Vol] Negative Normal NEGATIVE [facility] Comment on above: Order Comment: OVER is reported when the result is greater than the clinically reportable range. Performed By: #### 5 8077-9 #### CHRISTIE WATSON ([id number]) [facility] ([facility]) [address] [place] [address] Color (U) Light-Brown Normal Light-Yellow , Yellow, Dark-Yellow [facility] Comment on above: Order Comment: OVER is reported when the result is greater than the clinically reportable range. Performed By: #### 5 8077-9 #### CHRISTIE WATSON ([id number]) [facility] ([facility]) [address] [place] [address] Glucose Auto test strip (U) [Mass/Vol] Normal Normal Normal [facility] Comment on above: Order Comment: OVER is reported when the result is greater than the clinically reportable range. Performed By: #### 5 8077-9 #### CHRISTIE WATSON ([id number]) [facility] ([facility]) [address] [place] [address] Ketones (U) [Mass/Vol] Negative Normal NEGATIVE [facility] Comment on above: Order Comment: OVER is reported when the result is greater than the clinically reportable range. Performed By: #### 5 8077-9 #### CHRISTIE WATSON ([id number]) [facility] ([facility]) [address] [place], [place] [address] Leukocyte esterase Auto test strip Ql (U) 250 Javad/uL Abnormal NEGATIVE [facility] Comment on above: Order Comment: OVER is reported when the result is greater than the clinically reportable range. Performed By: #### 5 8077-9 #### CHRISTIE WATSON ([id number]) [facility] ([facility]) [address] [place], [place] [address] Nitrite Auto test strip Ql (U) Negative Normal NEGATIVE [facility] Comment on above: Order Comment: OVER is reported when the result is greater than the clinically reportable range. Performed By: #### 5 8077-9 #### CHRISTIE WATSON ([id number]) [facility] ([facility]) [address] [place], [place] [address] pH (U) 6.5 [pH] Normal 5.0, 5.5, 6.0, 6.5, 7.0, 7.5, 8.0 [facility] Comment on above: Order Comment: OVER is reported when the result is greater than the clinically reportable range. Performed By: #### 5 8077-9 #### CHRISTIE WATSON ([id number]) [facility] ([facility]) [address] [place] [address] Protein (U) [Mass/Vol] 30 (1+) Abnormal NEGATIVE, 10 (TRACE), 20 (TRACE) [facility] Comment on above: Order Comment: OVER is reported when the result is greater than the clinically reportable range. Performed By: #### 5 8077-9 #### CHRISTIE WATSON ([id number]) [facility] ([facility]) [address] [place] [address] RBC (U) [#/Vol] OVER (3+) Abnormal NEGATIVE [facility] Comment on above: Order Comment: OVER is reported when the result is greater than the clinically reportable range. Performed By: #### 5 8077-9 #### CHRISTIE WATSON ([id number]) [facility] ([facility]) [address] [place] [address] Specific gravity (U) [Rel density] 1.012 Normal 1.005-1.035 [facility] Comment on above: Order Comment: OVER is reported when the result is greater than the clinically reportable range. Performed By: #### 5 8077-9 #### CHRISTIE WATSON ([id number]) [facility] ([facility]) [address] [place], [place] [address] Urobilinogen (U) [Mass/Vol] Normal Normal Normal [facility] Comment on above: Order Comment: OVER is reported when the result is greater than the clinically reportable range. Performed By: #### 5 8077-9 #### CHRISTIE WATSON ([id number]) [facility] ([facility]) [address] [place] [address] Urinalysis microscopic panel Auto Ql (U)on 03-25-2025 Bacteria Auto (Urine sed) [#/Area] 1+ Abnormal NONE SEEN /HPF [facility] Mucus Auto (Urine sed) [#/Area] FEW Reference range not established. /LPF [facility] RBC Auto (Urine sed) [#/Area] >20 Abnormal NONE, 1-2, 3-5 /HPF [facility] WBC Auto (Urine sed) [#/Area] 21-50 Abnormal 1-5, NONE /HPF [facility] Bacteria Auto (Urine sed) [#/Area] 1+ /HPF Abnormal NONE SEEN [facility] Comment on above: Performed By: #### 5 3315-8 #### CHRISTIE WATSON ([id number]) [facility] ([facility]) [address] [place] [address] Mucus Auto (Urine sed) [#/Area] FEW Normal Reference range not established. [facility] Comment on above: Performed By: #### 5 3315-8 #### CHRISTIE WATSON ([id number]) [facility] ([facility]) [address] [place] [address] RBC Auto (Urine sed) [#/Area] >20 Abnormal NONE, 1-2, 3-5 [facility] Comment on above: Performed By: #### 5 3315-8 #### CHRISTIE WATSON ([id number]) [facility] ([facility]) [address] [place] [address] WBC Auto (Urine sed) [#/Area] 21-50 Abnormal 1-5, NONE [facility] Comment on above: Performed By: #### 5 3315-8 #### CHRISTIE WATSON ([id number]) [facility] ([facility]) [address] [place] [address] XR ABDOMEN 1 VIEWon 09-13-19 25 XR ABDOMEN 1 VIEW Interpreted By: Estela Herrera, STUDY: XR ABDOMEN 1 VIEW; 09/13/2024 10:05 am. 2 views. INDICATION: Signs/Symptoms:KIDNEY STONES. COMPARISON: 02/23/2024 ACCESSION NUMBER(S): [id number] ORDERING CLINICIAN: ISABELA BAZAN FINDINGS: Bowel gas [...] Estela Elkins 09/15/2024 8:10 AM Dictation workstation: [id number] [facility] Comprehensive metabolic 2000 panelon 06-26-2024 Albumin [Mass/Vol] 4.1 g/dL 3.5 - 4.6 g/dL [facility] ALP [Catalytic activity/Vol] 124 U/L High 35 - 104 U/L [facility] ALT [Catalytic activity/Vol] 8 U/L 0 - 41 U/L [facility] Anion gap [Moles/Vol] 8 mmol/L Low [facility] AST [Catalytic activity/Vol] 19 U/L 0 - 40 U/L [facility] Bilirubin [Mass/Vol] 1.2 mg/dL High 0.2 - 0 .7 mg/dL [facility] Calcium [Mass/Vol] 9.2 mg/dL 8.5 - 9.9 mg/dL [facility] Chloride [Moles/Vol] 107 mmol/L [facility] CO2 [Moles/Vol] 26 mmol/L [facility] [employer] Creatinine [Mass/Vol] 1.05 mg/dL 0.70 - 1.20 mg/dL [facility] GFR/1.73 sq M.predicted among non-blacks MDRD (S/P/Bld) [Vol rate/Area] 77.5 mL/min/{1.73_m2} 60 - PINF [facility] Comment on above: Pediatric calculator link https://www.kidney.org/professionals/kdoqi/gfr_calculatorped [...] [Mass/Vol] 2.3 g/dL 2.3 - 3.5 g/dL [facility] [employer] Glucose [Mass/Vol] 97 mg/dL 70 - 99 mg/dL [facility] [employer] Potassium [Moles/Vol] 4.5 mmol/L [facility] [employer] Protein [Mass/Vol] 6.4 g/dL 6.3 - 8.0 g/dL [facility] [employer] Sodium [Moles/Vol] 141 mmol/L [facility] [employer] Urea nitrogen [Mass/Vol] 12 mg/dL 8 - 23 mg/dL [facility] F[facility] 06-26-2024 Cholesterol [Mass/Vol] 113 mg/dL 0 - 199 mg/dL [facility] [place] [employer] Comment on above: ATP III Cholesterol classification is Desirable. Cholesterol in HDL [Mass/Vol] 33 mg/dL Low 40 - 59 mg/dL [facility] [place] [employer] [facility] Comment on above: ATP III HDL Cholestr [...] [Mass/Vol] 67 mg/dL 0 - 129 mg/dL [facility] [place] [employer] Comment on above: ATP III LDL Classifi cation is Optimal. Triglyceride, Fasting 65 mg/dL 0 - 15 0 mg/dL [employer] Comment on above: ATP III Triglyceride s Classification is Normal. No Panel Informationon 06-26 Interpretation and review of laboratory results Abnormal [facility] Abdomen Single viewon 1. Multiple calcific ations in the right kidney in the lower and midportions and 1 calcification in the lower pole of the left kidney. Findings unchanged from 10/07/2023. MACRO: None Signed by: Sundar Jacobsen 02/23/2024 3:35 PM Dictation workstation: [id number] [facility] Interpreted By: Sundar [place], STUDY: XR ABDOMEN 1 VIEW; 02/23/2024 10:34 am INDICATION: Signs/Symptoms:KIDNEY STONES. COMPARISON: 10/07/2023 ACCESSION NUMBER(S): [id number] ORDERING CLINICIAN: ISABELA BAZAN FINDINGS: Nonobstructive bowel [...] INDICATION: Signs/Symptoms:KIDNEY STONES. COMPARISON: 10/07/2023 ACCESSION NUMBER(S): [id number] ORDERING CLINICIAN: ISABELA BAZAN FINDINGS: Nonobstructive bowel [...] unchanged from 10/07/2023. MACRO: None Signed by: uSndar Jacobsen 02/23/2024 3:35 PM Dictation workstation: [id number] [facility] Work Phone: Radiology Study observation (narrative) [facility] Work Phone: XR Abdomen Single viewOrdere d By: Sundar Jacobsen on 02-23-2024 [facility] Work Phone: POCT UA Automated manually r esultedon 12-16-2023 Appearance (U) Clear Clear [facility] Work Phone: [phone] Glucose Test strip (U) [Mass/Vol] Negative NEGATIVE mg/dl [facility] Work Phone: [phone] Hemoglobin Ql (U) SMALL (1+) Abnormal NEGATIVE [facility] Work Phone: [phone] Interpretation and review of laboratory results Abnormal [facility] Work Phone: [phone] Leukocyte esterase Test strip Ql (U) TRACE Abnormal NEGATIVE [facility] Work Phone: [phone] Nitrite Ql (U) Negative NEGATIVE [facility] Work Phone: [phone] pH (U) 7.0 [pH] No Reference Range Established [facility] Work Phone: [phone] POC Bilirubin, Urine Negative NEGATIVE [facility] Work Phone: [phone] POC Color, Urine Yellow Straw, Yellow, Light-Yellow [facility] Work Phone: [phone] POC Ketones, Urine Negative NEGATIVE mg/dl [facility] Work Phone: [phone] POC Protein, Urine Negative NEGATIVE, 30 (1+) mg/dl [facility] Work Phone: [phone] POC Specific [place], Urine 1.020 1.005 - 1.035 [facility] Work Phone: POC Urobilinogen, Urine 0.2 0.2, 1.0 EU/DL [facility] Work Phone: [phone] [facility] Work Phone: No Panel Informationon 11-08 Interpretation and review of laboratory results Abnormal [facility] Urinalysis complete W Reflex Culture panel (U)on 11-09-2023 Appearance (U) Hazy Abnormal Clear [facility] Bilirubin (U) [Mass/Vol] Negative NEGATIVE [facility] Color (U) Yellow Straw, Yellow [facility] Glucose Auto test strip (U) [Mass/Vol] Negative NEGATIVE mg/dL [facility] Ketones (U) [Mass/Vol] Negative NEGATIVE mg/dL [facility] Leukocyte esterase Auto test strip Ql (U) MODERATE (2+) Abnormal NEGATIVE [facility] Nitrite Auto test strip Ql (U) Negative NEGATIVE [facility] pH (U) 6.0 [pH] 5.0, 5.5, 6.0, 6.5, 7.0, 7.5, 8.0 [facility] Protein (U) [Mass/Vol] 30 (1+) Abnormal NEGATIVE mg/dL [facility] RBC (U) [#/Vol] Negative NEGATIVE [facility] Specific gravity (U) [Rel density] 1.015 1.005 - 1.035 [facility] Urobilinogen (U) [Mass/Vol] mg/dL NINF - 2.0 mg/dL [facility] Urinalysis microscopic panel Auto Ql (U)on 11-09-2023 Bacteria Auto (Urine sed) [#/Area] 3+ Abnormal NONE SEEN /HPF [facility] Leukocyte clumps Auto (Urine sed) [#/Area] OCCASIONAL Reference range not established. /HPF [facility] Mucus Auto (Urine sed) [#/Area] 4+ Reference range not established. /LPF [facility] RBC Auto (Urine sed) [#/Area] 11-20 Abnormal NONE, 1-2, 3-5 /HPF [facility] WBC Auto (Urine sed) [#/Area] >50 Abnormal 1-5, NONE /HPF [facility] Bacteria identifiedon 2023 Bacteria identified Cx Nom (U) Test: Urine Culture Specimen Source: Clean Catch/Voided Specimen Type: Urine Specimen Date: 11/08/2023 12:19 PM Result Date: 11/10/2023 7:53 AM Result Status: Final result Abnormal: No Resulting Lab: [facility] [id number] [facility] [address] CULTURE No significant growth Normal [facility] Comment on above: Performed By: #### 6 30-4 #### SULLY Schmidt ([id number]) [facility] ([facility]) [address] [place] [address] POCT UA Automated manually r esultedon 10-07-2023 Appearance (U) Clear Clear [facility] Work Phone: Glucose Test strip (U) [Mass/Vol] Negative NEGATIVE mg/dl [facility] Work Phone: [phone] Hemoglobin Ql (U) MODERATE (2+) Abnormal NEGATIVE [facility] Work Phone: Interpretation and review of laboratory results Abnormal [facility] Work Phone: [phone] Leukocyte esterase Test strip Ql (U) TRACE Abnormal NEGATIVE [facility] Work Phone: [phone] Nitrite Ql (U) Negative NEGATIVE [facility] Work Phone: [phone] pH (U) 7.0 [pH] No Reference Range Established [facility] Work Phone: [phone] POC Bilirubin, Urine Negative NEGATIVE [facility] Work Phone: [phone] POC Color, Urine Yellow Straw, Yellow, Light-Yellow [facility] Work Phone: [phone] POC Ketones, Urine Negative NEGATIVE mg/dl [facility] Work Phone: POC Protein, Urine Negative NEGATIVE, 30 (1+) mg/dl [facility] Work Phone: POC Specific [place], Urine 1.020 1.005 - 1.035 [facility] Work Phone: POC Urobilinogen, Urine 0.2 0.2, 1.0 EU/DL [facility] Work Phone: [facility] Work Phone: Prostate specific Agon 10-07 Prostate specific Ag [Mass/Vol] 1.98 ng/mL Normal <=4.00 [facility] Comment on above: Order Comment: The F DA requires that the method used for PSA assay be reported to the physician. Values obtained with different assay methods must not be used interchangeably. This test was performed at [facility] using the [employer] PSA assay is a two-site immunoenzymatic sandwich assay. The assay is approved for measurement of prostate-specific antigen (PSA)in serum and may be used in conjunction with a digital rectal examination in men 50 years and older as an aid in detection of prostate cancer. 3-Qkopa-jzhlgfglq inhibitors (e.g. Proscar, Finasteride, Avodart, Dutasteride and Lianne) for the treatment of BPH have been shown to lower PSA levels by an average of 50% after 6 months of treatment. Performed By: #### 2 857-1 #### SORIANO SHIRLEY ([id number]) [facility] ([facility]) [address] [place] [address] Gammaglutamyl Transon 2023 Amylase [Catalytic activity/Vol] 13 U/L Normal 8-61 [facility] Comment on above: Result Comment: Perf ormed at [facility], [address] [place] [address] . Surgical Specimenon 08-17-20 Surgical Specimen [facility] [address] [place], [place] [id number] FINAL SURGICAL PATHOLOGY REPORT Patient Name: RAMON COSTA Accession No: [id number] Age Sex: 1955 Location: [facility] Account No: [id number] Collected: 08/17/2023 Med Rec No: [id number] Received: 08/18/2023 Attend Phys: YASMANY SMITH Completed: [...] 2 mm. Submitted together in one cassette. [facility] CPT: 96397 X5 [id number] X2 TIMO PARK M.D. 08/19/2023 Electronically signed out by Page 1 of 1 Invalid Interpretation Code [facility] Comment on above: Performed By: #### S UR #### [facility] [address] [place] [address] Comprehensive Metabolic Pane l Fastingon 06-11-2023 Albumin [Mass/Vol] 4.2 g/dL Normal 3.5-4.6 [facility] Comment on above: Performed By: #### C MPF #### [facility] [address] [place] [address] ALP [Catalytic activity/Vol] 139 U/L Critically high 35-104 [facility] Comment on above: Performed By: #### C MPF #### [facility] [address] [place] [address] ALT [Catalytic activity/Vol] 14 U/L Normal 0-41 [facility] Comment on above: Performed By: #### C MPF #### [facility] [address] [place] [address] Anion gap [Moles/Vol] 11 mmol/L Normal 9-15 [facility] Comment on above: Performed By: #### C MPF #### [facility] [address] [place] [address] AST [Catalytic activity/Vol] 19 U/L Normal 0-40 [facility] Comment on above: Performed By: #### C MPF #### [facility] [address] [place] [address] Bilirubin [Mass/Vol] 1.0 mg/dL Critically high 0.2-0.7 [facility] Comment on above: Performed By: #### C MPF #### [facility] [address] [place] [address] Calcium [Mass/Vol] 9.1 mg/dL Normal 8.5-9.9 [facility] Comment on above: Performed By: #### C MPF #### [facility] [address] [place] [address] Chloride [Moles/Vol] 106 mmol/L Normal 95-107 [facility] Comment on above: Performed By: #### C MPF #### [facility] [address] [place] [address] CO2 [Moles/Vol] 25 mmol/L Normal 20-31 [facility] Comment on above: Performed By: #### C MPF #### [facility] [address] [place] [address] Creatinine [Mass/Vol] 0.99 mg/dL Normal 0.70-1.20 [facility] Comment on above: Performed By: #### C MPF #### [facility] [address] [place] [address] GFR >60.0 Normal >60 [facility] Comment on above: Result Comment: Yoselin atric calculator link https://www.kidney.org/professionals/kdoqi/gfr_calculatorped Effective Jun 01, 2022 These results are not intended for use in patients <18 years of age. eGFR results are calculated without a race factor using the 2021 CKD-EPI equation. Careful clinical correlation is recommended, particularly when comparing to results calculated using previous equations. The CKD-EPI equation is less accurate in patients with extremes of muscle mass, extra-renal metabolism of creatinine, excessive creatinine ingestion, or following therapy that affects renal tubular secretion. Performed By: #### C MPF #### [facility] [address] [place] [address] Globulin (S) [Mass/Vol] 2.3 g/dL Normal 2.3-3.5 [facility] Comment on above: Performed By: #### C MPF #### [facility] [address] [place] [address] Glucose [Mass/Vol] 103 mg/dL Critically high 70-99 [facility] Comment on above: Performed By: #### C MPF #### [facility] [address] [place] [address] Potassium [Moles/Vol] 4.4 mmol/L Normal 3.4-4.9 [facility] Comment on above: Performed By: #### C MPF #### [facility] [address] [place] [address] Protein [Mass/Vol] 6.5 g/dL Normal 6.3-8.0 [facility] Comment on above: Performed By: #### C MPF #### [facility] [address] [place] [address] Sodium [Moles/Vol] 142 mmol/L Normal 135-144 [facility] Comment on above: Performed By: #### C MPF #### [facility] [address] [place] [address] Urea nitrogen [Mass/Vol] 11 mg/dL Normal 8-23 [facility] Comment on above: Performed By: #### C MPF #### [facility] [address] [place] [address] Lipid Panel Fastingon 2022 Cholesterol [Mass/Vol] 112 mg/dL Normal 0-199 [facility] Comment on above: Result Comment: ATP III Cholesterol classification is Desirable. Performed By: #### L IPDF #### [facility] [address] [facility] [address] HDL Cholesterol Fasting 32 mg/dL Low 40-59 [facility] Comment on above: Result Comment: ATP [...] CHD Performed By: #### L IPDF #### [facility] [address] [place] [address] LDL Cholesterol (Calculated) Fasting 67 mg/dL Normal 0-129 [facility] Comment on above: Result Comment: ATP III LDL Classification is Optimal. Performed By: #### L IPDF #### [facility] [address] [facility] [address] Triglycerides Fasting 63 mg/dL Normal 0-150 [facility] Comment on above: Result Comment: ATP III Triglycerides Classification is Normal. Performed By: #### L IPDF #### [facility] [address] [facility] [address] Prostate Specific Ag Screeno n 06-11-2023 Prostate Specific Ag Screen 1.58 ng/mL Normal 0.00-4.00 [facility] Comment on above: Performed By: #### P SA #### [facility] [address] [facility] [address] Comprehensive Metabolic Pane l, Fastingon 06-15-2022 Albumin [Mass/Vol] 4 g/dL 3.5 - 4.6 g/dL [facility] ALP (Bld) [Catalytic activity/Vol] 137 U/L High 35 - 104 U/L [facility] ALT [Catalytic activity/Vol] 17 U/L 0 - 41 U/L [facility] Anion gap [Moles/Vol] 7 mmol/L Low [facility] AST [Catalytic activity/Vol] 29 U/L 0 - 40 U/L [facility] Bilirubin [Mass/Vol] 1.0 mg/dL High 0.2 - 0 .7 mg/dL [facility] Calcium [Mass/Vol] 9.3 mg/dL 8.5 - 9.9 mg/dL [facility] Chloride [Moles/Vol] 104 mmol/L [facility] CO2 [Moles/Vol] 27 mmol/L [facility] Creatinine [Mass/Vol] 0.98 mg/dL 0.7 - 1.2 mg/dL [facility] GFR/1.73 sq M.predicted MDRD (S/P/Bld) [Vol rate/Area] 60 - PINF [facility] Comment on above: Pediatric calculator link [...] [Mass/Vol] 2.6 g/dL 2.3 - 3.5 g/dL [facility] Glucose [Mass/Vol] 92 mg/dL 70 - 99 mg/dL [facility] Potassium [Moles/Vol] 4.9 mmol/L [facility] Protein [Mass/Vol] 6.6 g/dL 6.3 - 8 g/dL [facility] Sodium [Moles/Vol] 138 mmol/L [facility] Urea nitrogen (BldV) [Mass/Vol] 12 mg/dL 8 - 23 mg/dL [facility] Lipid, Fastingon 06-15-2022 Cholesterol [Mass/Vol] 136 mg/dL 0 - 199 mg/dL [facility] Comment on above: ATP III Cholesterol classification is Desirable. Cholesterol in HDL [Mass/Vol] 30 mg/dL Low 40 - 59 mg/dL [facility] Comment on above: ATP III HDL [...] [Mass/Vol] 86 mg/dL 0 - 129 mg/dL [facility] Comment on above: ATP III LDL Classifi cation is Optimal. Triglyceride, Fasting 98 mg/dL 0 - 15 0 mg/dL [facility] Comment on above: ATP III Triglyceride s Classification is Normal. No Panel Informationon 06-15 Interpretation and review of laboratory results Abnormal [facility] CBCon 04-02-2022 Hematocrit (Bld) [Volume fraction] 45.9 % 42 - 52 % [facility] Hemoglobin (Bld) [Mass/Vol] 15.0 g/dL 14 - 18 g/dL [facility] Interpretation and review of laboratory results Abnormal [facility] MCH (RBC) [Entitic mass] 31.5 pg High 27 - 31.3 pg [facility] MCHC (RBC) [Mass/Vol] 32.8 % Low 33 - 37 % [facility] MCV (RBC) [Entitic vol] 96.0 fL 80 - 100 fL [facility] Platelet distribution width (Bld) [Ratio] 15.1 % High 11.5 - 14.5 % [facility] Platelets (Bld) [#/Vol] 207 10*3/uL 130 - 400 K/uL [facility] RBC (Bld) [#/Vol] 4.78 10*6/uL [facility] WBC (Bld) [#/Vol] 7.0 10*3/uL 4.8 - 10.8 K/uL [facility] XR CHEST (2 VW)on 04-02-2022 NO ACUTE CARDIOPULMO NARY DISEASE. [facility] Described EXAMINATIO N: XR CHEST (2 VW) CLINICAL HISTORY: SHORTNESS OF BREATH COMPARISONS: CT CHEST, JUNE 24, 2021. FINDINGS: Osseous structures are intact. Cardiopericardial silhouette is normal. Pulmonary vasculature is normal. Lungs are clear. [facility] Signer, MD Darci - 04/02/2022 Described EXAMINATION: XR CHEST (2 VW) CLINICAL HISTORY: SHORTNESS OF BREATH COMPARISONS: CT CHEST, JUNE 24, 2021. FINDINGS: Osseous structures are intact. Cardiopericardial silhouette is normal. Pulmonary vasculature is normal. Lungs are clear. IMPRESSION: NO ACUTE CARDIOPULMONARY DISEASE. [employer] Phone: Radiology Study observation (narrative) [employer] Phone: XR CHEST (2 VW)Ordered By: Binh Rosales on 04-02-2022 [employer] Phone: TSH with ReflexOrdered By: Liseth Rey on 07-03-2021 TSH Qn 1.18 m[IU]/L [employer] Phone: [employer] Phone: CBCOrdered By: Jarad Rey on 06-12-2021 Hematocrit (Bld) [Volume fraction] 45.9 % 42.0 - 52.0 % [employer] Phone: Hemoglobin.gastrointe stinal spec 1 Ql (Stl) 15.5 g/dL 14.0 - 18.0 g/dL [employer] Phone: Interpretation and review of laboratory results Abnormal [employer] Phone: MCH (RBC) [Entitic mass] 31.7 pg High 27.0 - 31.3 pg [employer] Phone: MCHC (RBC) [Mass/Vol] 33.7 % 33.0 - 37.0 % [employer] Phone: MCV (RBC) [Entitic vol] 94.1 fL 80.0 - 100.0 fL [employer] Phone: Platelet distribution width (Bld) [Ratio] 14.6 % High 11.5 - 14.5 % [employer] Phone: Platelets (Bld) [#/Vol] 239 10*3/uL 130 - 400 K/uL [employer] Phone: RBC (Bld) [#/Vol] 4.87 10*6/uL [employer] Phone: WBC (Bld) [#/Vol] 6.9 10*3/uL 4.8 - 10.8 K/uL [employer] Phone: [employer] Phone: Comprehensive Metabolic Pane l, FastingOrdered By: Jarad Rey on 06-12-2021 Albumin [Mass/Vol] 4.1 g/dL 3.5 - 4.6 g/dL [employer] Phone: ALP (Bld) [Catalytic activity/Vol] 120 U/L High 35 - 104 U/L [facility] Phone: ALT [Catalytic activity/Vol] 13 U/L 0 - 41 U/L [facility] Phone: Anion gap [Moles/Vol] 9 mmol/L [facility] [employer] Phone: AST [Catalytic activity/Vol] 19 U/L 0 - 40 U/L [facility] Phone: Bilirubin [Mass/Vol] 0.6 mg/dL 0.2 - 0 .7 mg/dL [employer] Phone: Calcium [Mass/Vol] 9.3 mg/dL 8.5 - 9.9 mg/dL [employer] Phone: Chloride [Moles/Vol] 105 mmol/L [employer] Phone: CO2 [Moles/Vol] 24 mmol/L [employer] Phone: Creatinine [Mass/Vol] 0.98 mg/dL 0.70 - 1.20 mg/dL [employer] Phone: Free PSA/Total PSA [Mass fraction] 6.4 g/dL 6.3 - 8.0 g/dL [employer] Phone: GFR >60.0 >60 [employer] Phone: Comment on above: >60 mL/min/1.73m2 EG FR, calc. for ages 18 and older using the MDRD formula (not corrected for weight), is valid for stable renal function. GFR Non- >60.0 >60 [employer] Phone: Comment on above: >60 mL/min/1.73m2 EG FR, calc. for ages 18 and older using the MDRD formula (not corrected for weight), is valid for stable renal function. Globulin (S) [Mass/Vol] 2.3 g/dL 2.3 - 3.5 g/dL [employer] Phone: Glucose [Mass/Vol] 103 mg/dL High 70 - 99 mg/dL [employer] Phone: Potassium [Moles/Vol] 4.7 mmol/L [facility] [employer] Phone: Sodium [Moles/Vol] 138 mmol/L [employer] Phone: Urea nitrogen (BldV) [Mass/Vol] 16 mg/dL 8 - 23 mg/dL [employer] Phone: Lipid, FastingOrdered By: Wilmer Rey on 06-12-2021 Cholesterol [Mass/Vol] 127 mg/dL 0 - 199 mg/dL [employer] Phone: Comment on above: ATP III Cholesterol classification is Desirable. Cholesterol in HDL [Mass/Vol] 28 mg/dL Low 40 - 59 mg/dL [employer] Phone: Comment on above: ATP III HDL [...] [Mass/Vol] 83 mg/dL 0 - 129 mg/dL [employer] Phone: Comment on above: ATP III LDL Classifi cation is Optimal. Triglyceride, Fasting 78 mg/dL 0 - 15 0 mg/dL [employer] Phone: Comment on above: ATP III Triglyceride s Classification is Normal. No Panel InformationOrdered By: Jarad Rey on 06-12-2021 Interpretation and review of laboratory results Abnormal [employer] Phone: [employer] Phone: PSA ScreeningOrdered By: Ollie Rey on 06-12-2021 [employer] Phone: ECHO Complete 2D W Doppler W ColorOrdered By: Justin Espnioza on 02-27-2021 Transthoracic Echocardiography Report (TTE) Demographics Patient Name JULISSA WYATT Gender Male LINDSAY Patient Number [id number] Race Ethnicity Visit Number [id number] Room Number Corporate ID Date of Study 02/27/2021 Referring Physician Alexis Núñez MD Number Date of 1955 [employer] Representative Rojas Mancini [facility] Age 65 year(s) Interpreting [employer] Physician Cardiology Alexis úNñez MD Procedure Type of Study TTE procedure:ECHO [...] RV Systolic Press (more content not included)... [employer] Work Phone: [place], [place] Incoming Cardiovascular Results From [facility] - 02/27/2021 11:35 AM EDT Transthoracic Echocardiography Report (TTE) Demographics Patient Name JULISSA WYATT Gender Male LINDSAY Patient Number [id number] Race Ethnicity Visit Number [id number] Room Number Corporate ID Date of Study 02/27/2021 Referring Physician Alexis Núñez MD Number Date of 1955 Cash Posting Representative Rojas Mancini [facility] Age 65 year(s) Interpreting [facility] Physician Cardiology Alexis Núñez MD [...] Root: 2.54 cm LVOT Diameter: 1.82 cm [employer] Phone: Ogone Phone: NM MYOCARDIAL SPECT REST EXE RCISE OR RXOrdered By: Justin Espinoza on 02-27-2021 NORMAL MYOCARDIAL PERFUSION IMAGING WITH NO EVIDENCE OF STRESS-INDUCED ISCHEMIA NOR PRIOR MYOCARDIAL INFARCTION. NORMAL LV EJECTION FRACTION. [employer] Phone: EXAMINATION: PHARMACOLOGICAL SPECT IMAGING CLINICAL HISTORY: [...] tracer uptake throughout the left ventricle segments. [employer] Phone: [place], [place] Incoming R adiant Results From [employer] - 02/27/2021 6:45 PM EDT EXAMINATION: PHARMACOLOGICAL [...] PRIOR MYOCARDIAL INFARCTION. NORMAL LV EJECTION FRACTION. [facility] [employer] Work Phone: [facility] Work Phone: Comprehensive Metabolic Pane l, Fastingon 06-11-2020 Albumin [Mass/Vol] 4.2 g/dL 3.5 - 4.6 g/dL [place] ALP [Catalytic activity/Vol] 113 U/L High 35 - 104 U/L [place] ALT [Catalytic activity/Vol] 18 U/L 0 - 41 U/L [place] Anion gap [Moles/Vol] 8 mmol/L Low [place], [place] AST [Catalytic activity/Vol] 32 U/L 0 - 40 U/L [place] Bilirubin Ql (U) 0.8 mg/dL High 0.2 - 0.7 mg/dL [place] Calcium [Mass/Vol] 8.9 mg/dL 8.5 - 9.9 mg/dL [place] Chloride [Moles/Vol] 104 mmol/L [place], [place] CO2 [Moles/Vol] 27 mmol/L [place] Creatinine [Mass/Vol] 1.13 mg/dL 0.7 - 1.2 mg/dL [place] GFR >60.0 >60 [place] Comment on above: >60 mL/min/1.73m2 EG FR, calc. for ages 18 and older using the MDRD formula (not corrected for weight), is valid for stable renal function. GFR Non- >60.0 >60 [place] Comment on above: >60 mL/min/1.73m2 EG FR, calc. for ages 18 and older using the MDRD formula (not corrected for weight), is valid for stable renal function. Globulin (S) [Mass/Vol] 2.1 g/dL Low 2.3 - 3.5 g/dL [place] Glucose [Mass/Vol] 101 mg/dL High 70 - 99 mg/dL [place] Interpretation and review of laboratory results Abnormal [place] Potassium [Moles/Vol] 4.2 mmol/L [place] Protein [Mass/Vol] 6.3 g/dL 6.3 - 8 g/dL [place] Sodium [Moles/Vol] 139 mmol/L [place] Urea nitrogen [Mass/Vol] 18 mg/dL 8 - 23 mg/dL [place] Lipid, Fastingon 06-11-2020 Cholesterol [Mass/Vol] 137 mg/dL 0 - 199 mg/dL [place] Comment on above: ATP III Cholesterol classification is Desirable. Cholesterol in HDL [Mass/Vol] 34 mg/dL Low 40 - 59 mg/dL [place] Comment on above: ATP III HDL [...] [Mass/Vol] 87 mg/dL 0 - 129 mg/dL [place] Comment on above: ATP III LDL Classifi cation is Optimal. Interpretation and review of laboratory results Abnormal [place] Triglyceride, Fasting 79 mg/dL 0 - 15 0 mg/dL [place] Comment on above: ATP III Triglyceride s Classification is Normal. Comprehensive Metabolic Pane l, Fastingon 05-15-2019 Albumin [Mass/Vol] 4.1 g/dL 3.5 - 4.6 g/dL [place] ALP [Catalytic activity/Vol] 135 U/L High 35 - 104 U/L [place] ALT [Catalytic activity/Vol] 12 U/L 0 - 41 U/L [place] Anion gap [Moles/Vol] 9 mmol/L [place] AST [Catalytic activity/Vol] 25 U/L 0 - 40 U/L [place] Bilirubin Ql (U) 1.2 mg/dL High 0.2 - 0.7 mg/dL [place] Calcium [Mass/Vol] 8.9 mg/dL 8.5 - 9.9 mg/dL [place] Chloride [Moles/Vol] 106 mmol/L [place] CO2 [Moles/Vol] 25 mmol/L [place] Creatinine [Mass/Vol] 0.97 mg/dL 0.7 - 1.2 mg/dL [place] GFR >60.0 >60 [place] Comment on above: >60 mL/min/1.73m2 EG FR, calc. for ages 18 and older using the MDRD formula (not corrected for weight), is valid for stable renal function. GFR Non- >60.0 >60 [place] Comment on above: >60 mL/min/1.73m2 EG FR, calc. for ages 18 and older using the MDRD formula (not corrected for weight), is valid for stable renal function. Globulin (S) [Mass/Vol] 2.6 g/dL 2.3 - 3.5 g/dL [place] Glucose [Mass/Vol] 95 mg/dL 70 - 99 mg/dL [place] Potassium [Moles/Vol] 4.1 mmol/L [place] Protein [Mass/Vol] 6.7 g/dL 6.3 - 8 g/dL [place] Sodium [Moles/Vol] 140 mmol/L [place] Urea nitrogen [Mass/Vol] 15 mg/dL 8 - 23 mg/dL [place] Lipid, Fastingon 05-15-2019 Cholesterol [Mass/Vol] 107 mg/dL 0 - 199 mg/dL [place] Comment on above: ATP III Cholesterol classification is Desirable. Cholesterol in HDL [Mass/Vol] 29 mg/dL Low 40 - 59 mg/dL [place] Comment on above: ATP III HDL [...] [Mass/Vol] 64 mg/dL 0 - 129 mg/dL [place] Comment on above: ATP III LDL Classifi cation is Optimal. Triglyceride, Fasting 72 mg/dL 0 - 15 0 mg/dL [place] Comment on above: ATP III Triglyceride s Classification is Normal. Otheron 05-15-2019 Interpretation and review of laboratory results Abnormal [place] Follow Up (Plastic Surgery)o n 06-01-2018 [...] MD; Jun 01 2018 5:13PM EST (Author) [facility] [email or web address] Follow Up (Plastic Surgery)o n 05-18-2018 Follow [...] MD; May 18 2018 4:39PM EST (Author) [facility] [email or web address] PATHOLOGY SPECIMENon [address] [facility] Comment on above: Order Comment: Hermes nt: LEFT LEG BASAL CELL CARCINOMA Result Comment: Note : Specimens received on or after April:* Reports will be faxed to all physician's office.If you are a physician or have access to [facility]:* Pathology and Cytology reports are located in [facility] in the folder labeled Medical Record Forms.* Reports are also in the Physician Portal.* For assistance locating reports call: (LAB) [phone] Performed By: #### L PATH ####[place] [id number] [place] [address] Follow Up (Plastic Surgery)o n 05-11-2018 Follow [...] May 11 2018 3:31PM EST (Author) [facility] [employer] OPERATIVE REPORTon 8 OPERATIVE REPORT This is a preliminar y report only, as the practitioner review and authentication has not occurred.Name: RAMON COSTAMR: [id number]: Esa Castañeda M.D.DATE OF SURGERY: 05/04/2018ANESTHESIA:1ST FAILURE 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 No complications [facility] RAMON [id number] [address] [place] [id number]: Esa Castañeda MDOPERATIVE REPORTencountered during the procedure. Esa CASTAÑEDA M.D./[facility]/[id number]: 05/11/2018 15:12:35 E/S:Electronical ly Signed [facility] RAMON [id number] [address] [place] [id number]: Esa Castañeda MDOPERATIVE REPORT Normal [facility] Surgical Pathology Depar tmenton 05-04-2018 [facility] Surgical Pathology Department Name RAMON COSTA Pathologist: MARGUERITE PERRYate of Procedure: 05/04/2018Date Received: 05/04/2018Date Reported 05/13/2018Submitting Physician: ESA CASTAÑEDA MDLocation: APNHSC Other External # [id number] FINAL DIAGNOSISA. LEFT LEG, BASAL CELL CARCINOMA, EXCISION:-- BASAL CELL CARCINOMA, SUPERFICIAL GROWTH PATTERN AND SCAR, INKED MARGINSFREE IN PLANES OF SECTIONS EXAMINED.Health Care Aide: Tono Mars MD. The gross and/or microscopic findings were reviewed in conjunction withpathology resident, Valerie Doherty M.D. Electronically Signed Out By BELKIS COFFMAN MD/[facility]ENTERkalyn the signature on this report, the [...] LEG BASAL CELL CARCINOMA Other Case Numbers [id number] Description:Received in formalin, labeled with the patient's [...] body of ellipse 4 inferior tipd/05/05/2018 Normal [facility] Comment on above: Performed By: #### U [facility] ####[facility] Surgical Pathology [id number] [place] [address] Office Visiton 04-15-2018 Office Visit Chief ComplaintThe [...] Apr 15 2018 5:29PM EST (Author) Normal [employer] eHistory And Physicalon [facility] And Physical [address] [address]OSRCUWC AND PHYSICAL EXAMINATIONPatient Name:RAMON Zhong Record Number: [id number] Physician: Quirino Sheehan M.D. Date: 04/26/2018Discharge Date:CHIEF [...] under MAC anesthesia.Quirino Sheehan M.D.INTERNAL JOB NUMBER: [id number]:Electronically signed by Quirino Sheehan MD on 01 Apr 2018 12:58:18 GMT Normal [facility] CBC With Differentialon 09-30 Basophils Auto #/vol (Bld) 0.04 10*3/uL Normal 0.01-0.09 [facility] Comment on above: Performed By: #### 2 [id number] ####[place] [id number] Basophils/100 WBC Auto (Bld) 0.6 % Normal 0.0-1.3 [facility] Comment on above: Performed By: #### 2 [id number] ####[address] [address] Eosinophils Auto #/vol (Bld) 0.15 10*3/uL Normal 0.01-0.46 [facility] Comment on above: Performed By: #### 2 [id number] ####[address] [address] Eosinophils/100 WBC Auto (Bld) 2.4 % Normal 0.0-6.7 [facility] Comment on above: Performed By: #### 2 [id number] ####[address] [address] Erythrocyte distribution width Auto Ratio (RBC) 13.3 % Normal 12.0-15.4 [facility] Comment on above: Performed By: #### 2 [id number] ####[address] [address] Hematocrit Auto Volume Fraction (Bld) 44.4 % Normal 38.4-54.9 [facility] Comment on above: Performed By: #### 2 [id number] ####[address] [address] Hemoglobin mass conc (Bld) 15.0 g/dL Normal 12.8-17.7 [facility] Comment on above: Performed By: #### 2 [id number] ####[address] [address] Imm Grans Absolute 0.02 10*3/uL Normal 0.00-0.21 [facility] Comment on above: Performed By: #### 2 [id number] ####[address] [address] Immature granulocytes #/vol (Bld) 0.3 % Normal [facility] Comment on above: Performed By: #### 2 [id number] ####[address] [address] Lymphocytes Auto #/vol (Bld) 2.17 10*3/uL Normal 0.40-2.84 [facility] Comment on above: Performed By: #### 2 [id number] ####[facility] [address] [place] [address] Lymphocytes/100 WBC Auto (Bld) 34.5 % Normal 9.4-41.1 [facility] Comment on above: Performed By: #### 2 [id number] ####[facility] [id number] [place] [address] MCH Auto Entitic mass (RBC) 31.6 pg Normal 27.5-32.9 [facility] Comment on above: Performed By: #### 2 [id number] ####[facility] [address] [place] [address] MCHC Auto mass conc (RBC) 33.8 g/dL Normal 30.5-35.4 [facility] Comment on above: Performed By: #### 2 [id number] ####[facility] [facility] [address] [place] [address] MCV Auto Entitic volume (RBC) 93.5 fL Normal 83.3-98.2 [facility] Comment on above: Performed By: #### 2 [id number] ####[facility] F[address] [place] [address] Monocytes Auto #/vol (Bld) 0.56 10*3/uL Normal 0.25-1.33 [facility] Comment on above: Performed By: #### 2 376873 ####[facility] [address]hr[address] [place] [address] Monocytes/100 WBC Auto (Bld) 8.9 % Normal 3.0-16.2 [facility] Comment on above: Performed By: #### 2 041796 ####[facility] Eys[address] [place] [address] Neutrophils Absolute 3.35 10*3/uL Normal 2.22-7.53 [facility] Healthcare Comment on above: Performed By: #### 2 948699 ####[facility] Yry[address] [place] [address] Neutrophils/100 WBC Auto (Bld) 53.3 % Normal 46.2-79.1 [facility] Comment on above: Performed By: #### 2 566335 ####[facility] Wqu[address] [place] [address] NRBC Absolute 0.00 10*3/uL Normal [facility] Comment on above: Performed By: #### 2 951991 ####[facility] Wcf[address] [place] [address] NRBC Automated 0.0 /100{WBCs} Normal [facility] Comment on above: Performed By: #### 2 049836 ####[facility] Rug[address] [place] [address] Platelet mean volume Auto Entitic volume (Bld) 8.5 fL Low 9.9-12.1 [facility] Comment on above: Performed By: #### 2 283105 ####[facility] Jpe[address] [place] [address] Platelets Auto #/vol (Bld) 180 10*3/uL Normal 155-404 [facility] Comment on above: Performed By: #### 2 439646 ####[facility] F[address] [place] [address] RBC Auto #/vol (Bld) 4.75 10*6/uL Normal 4.08-6.37 [facility] Healthcare Comment on above: Performed By: #### 2 531755 ####[facility] Vgd[address] [place] [address] RDW SD 45.9 fL Normal 39.3-48.6 [facility] Comment on above: Performed By: #### 2 344098 ####[facility] Kjp[address] [place] [address] WBC Auto #/vol (Bld) 6.3 10*3/uL Normal 4.2-11.0 [facility] Comment on above: Performed By: #### 2 419784 ####[facility] Acw[address] [place] [address] Comprehensive Metabolic Pane otoniel 10-15-2017 Albumin mass conc 4.0 g/dL Normal 3.4-5.0 [facility] Comment on above: Performed By: #### 1 129380 ####[facility] Qtm[address] [place] [address] Albumin/Globulin mass ratio 1.5 {ratio} Normal 0.9-2.4 [facility] Comment on above: Performed By: #### 1 595320 ####[facility] [address] [place] [address] ALP enzyme act/vol 116 U/L Normal 45-117 [facility] Comment on above: Performed By: #### 1 408005 ####[facility] [address] [place] [address] ALT enzyme act/vol 18 U/L Normal 10-52 [facility] Comment on above: Performed By: #### 1 541975 ####[facility] F[address] [place] [address] Anion gap 3 molar conc 9 mmol/L Low 10-20 [facility] Comment on above: Performed By: #### 1 768670 ####[facility] [address] [place] [address] AST enzyme act/vol 13 U/L Normal 13-39 [facility] Comment on above: Performed By: #### 1 845976 ####[facility] [address] [place] [address] Bilirubin mass conc 0.8 mg/dL Normal 0.0-1.2 [facility] Comment on above: Performed By: #### 1 191143 ####[facility] [address] [place] [address] Calcium mass conc 9.1 mg/dL Normal 8.6-10.3 [facility] Comment on above: Performed By: #### 1 809039 ####[facility] [address] [place] [address] Chloride molar conc 108 mmol/L High 98-107 [facility] Comment on above: Performed By: #### 1 591076 ####[facility] [address] [place] [address] Creatinine mass conc 1.12 mg/dL Normal 0.50-1.30 [facility] Comment on above: Performed By: #### 1 824489 ####[facility] Hqe[address] [place] [address] GFR/1.73 sq M.predicted MDRD vol rate/area mL/min/{1.73_m2} Normal [facility] Comment on above: Result Comment: Inte rpretation for Chronic Kidney Disease:Stages 1&2 >60 Healthy or potential kidney damage.Mild decrease of GFR.Stage 3 30-59 Moderate decrease of GFR.Stage 4 15-29 Severe decrease of GFR.Stage 5 <15 Kidney failure or on dialysis. Performed By: #### 1 528021 ####[facility] [address] [place] [address] Glucose mass conc 104 mg/dL High 70-100 [facility] Comment on above: Performed By: #### 1 869184 ####[facility] Dbz[address] [place] [address] HCO3 molar conc (Bld) 28 mmol/L Normal 21-32 [facility] Comment on above: Performed By: #### 1 443964 ####[facility] Chg[address] [place] [address] Potassium molar conc 4.3 mmol/L Normal 3.5-5.1 [facility] Comment on above: Performed By: #### 1 824410 ####[facility] Acd[address] [place] [address] Protein mass conc 6.6 g/dL Normal 6.4-8.2 [facility] Comment on above: Performed By: #### 1 879626 ####[facility] V[address] [place] [address] Sodium molar conc 141 mmol/L Normal 136-145 [facility] Comment on above: Performed By: #### 1 802254 ####[facility] Gdd[address] [place] [address] Urea nitrogen mass conc 12 mg/dL Normal 6-23 [facility] Comment on above: Performed By: #### 1 676730 ####[facility] [address] [place] [address] Urea nitrogen/Creatinine mass ratio 11 mg/mg Normal 5-25 [facility] Comment on above: Performed By: #### 1 044937 ####[facility] [address] [place] [address] Lipid Panelon 10-15-2017 Cholesterol in HDL mass conc 40 mg/dL Normal [facility] Comment on above: Result Comment: Norm al Mod Risk High Risk5-9 >48 42-48 <4210- 14 >45 40-45 <4015-19 >38 34-38 <34Adult >39 Performed By: #### 1 077794 ####[facility] [address] [place] [address] Cholesterol in LDL mass conc 74 mg/dL Normal <130 [facility] Comment on above: Performed By: #### 1 140310 ####[facility] [address] [place] [address] Cholesterol in VLDL mass conc 16 mg/dL Normal <30 [facility] Comment on above: Performed By: #### 1 309825 ####[facility] [address] [place] [address] Cholesterol mass conc 130 mg/dL Normal <200 [facility] Comment on above: Performed By: #### 1 957510 ####[facility] [address] [place] [address] Cholesterol.total/Cho lesterol in HDL mass ratio 3.2 {ratio} Normal [facility] Comment on above: Performed By: #### 1 407500 ####[facility] [address] [place] [address] Triglyceride mass conc 81 mg/dL Normal <150 [facility] Comment on above: Result Comment: 150- 199 Borderline [id number] High>500 Very High Performed By: #### 1 995967 ####[facility] [address] [place] [address] Prostate Specific Antigen, T otalon 10-15-2017 Protein mass conc 1.2 ng/mL Normal 0.0-4.0 [facility] Comment on above: Result Comment: 5-Al pha Reductase Inhibitors (e.g. Proscar,Finasteride, Avodart, Dutasteride and Lianne)may falsely decrease serum total PSA by 50%.To achieve the corrected value, the reportedPSA should be multiplied X 2. Performed By: #### 1 746296 ####[facility] [address] [place] [address] TSHon 10-15-2017 Thyrotropin Qn 0.54 mU/L Normal 0.44-3.98 [facility] Comment on above: Performed By: #### 1 631654 ####[facility] [address] [place] [address] XR Abdomen 1 Viewon 10-06-19 18 XR [...] pmSigned by: Ramon Hampton DO Technologist: TEX [facility] XR Abdomen 1 Viewon 09-10-19 [...] pmSigned by: Ramon Hampton DO Technologist: TEX [facility] Calculus Analysison 09-02-19 18 Ammonium Acid Urate Not Performed Normal [facility] Comment on above: Performed By: #### 2 362960 ####HEATHER RogersIkcQwui[address] [place] [address] Body weight Measured 176.0 mg [facility] Comment on above: Performed By: #### 2 293950 ####HEATHER CmkHldu4[address] [place] [address] [place] Hydrogen Phos Not Performed [facility] Comment on above: Performed By: #### 2 792291 ####HEATHER CmoXuvr8916 [place] [address] [place] Oxalate, Dihydrate Not Performed [facility] Comment on above: Performed By: #### 2 725448 ####HEATHER HanKsxb5619 [place] [address] [place] Oxalate, Monohydr 95 % Normal [facility] Comment on above: Performed By: #### 2 163639 ####HEATHER DpeYtfa5418 [place] [address] Calcium Bilirub[address] Not Performed [facility] Comment on above: Performed By: #### 2 764761 ####HEATHER RogersStyGsrw4735 [place] [address] Calcium Carbonate Not Performed [facility] Comment on above: Performed By: #### 2 063933 ####HEATHER RogersOqeNnum5353 [place] [address] Calcium Phos 05 % [facility] Comment on above: Performed By: #### 2 090644 ####HEATHER RogersQppGits3074 [place] [address] Cellular Material Not Performed [facility] Comment on above: Performed By: #### 2 881900 ####HEATHER Youn[address] [place] [address] Cholesterol mass conc Not Performed [facility] Comment on above: Performed By: #### 2 476704 ####HEATHER [address] [place] [address] Color Nom (U) Brown [facility] Comment on above: Performed By: #### 2 403105 ####HEATHER RogersPzwSabm4[address] [place] [address] Comment 1 Not Performed [facility] Comment on above: Performed By: #### 2 442033 ####HEATHER [address] [place] [address] Comment 2 Note: [facility] Comment on above: Result Comment: Plea do not submit specimens on Q-Tips, in tape, onfilters, or in liquids such as blood, urine or formalin.This may cause unnecessary biohazards, erroneous resultsand/or delay in the processing of the specimen. Performed By: #### 2 878544 ####HEATHER RogersLeaVuba[address] [place] [address] Comment 3 Comment [facility] Comment on above: Result Comment: Fady dorsey questions regarding Calculi Analysis contactQuinlan [facility] CenterCo at: [phone]. Performed By: #### 2 963361 ####HEATHER RogersAzdNlry[address]23 [place] [address] Composition Comment [facility] Comment on above: Result Comment: Perc entage (Represents the % composition) Performed By: #### 2 740860 ####HEATHER BraGgfs0364 [place] [address] Cystine Not Performed [facility] Comment on above: Performed By: #### 2 460769 ####HEATHER OgpRqng4585 [place] [address] Disclaimer: Comment [facility] Comment on above: Result Comment: This test was developed and its performance characteristicsdetermined by [employer]. It has not been cleared orapproved by the Food and Drug Administration.Performed At: [address] [id number] Figueroa Ruth MD Ph:[phone] Performed By: #### 2 364272 ####HEATHERHarmony RogersBupFvdl3877 [place] [address] Dried Blood Not Performed [facility] Comment on above: Performed By: #### 2 483143 ####HEATHER QmlLqom4961 [place] [address] Mag James Phos Not Performed [facility] Comment on above: Performed By: #### 2 663656 ####HEATHER PylNfyn34[address] [place] [address] Newberyite Not Performed [facility] Comment on above: Performed By: #### 2 141908 ####HEATHER FgxIzla7385 [place] [address] Nidus No Nidus visualized [facility] Comment on above: Performed By: #### 2 459813 ####HEATHER GtbEplh5834 [place] [address] Note: Comment [facility] Comment on above: Result Comment: Calc jose rafael report without photograph will follow via computer,mail, or linoleum floor layer delivery. Performed By: #### 2 089912 ####HEATHER ZpuXbpw6008 [place] [address] Shell Not Performed [facility] Comment on above: Performed By: #### 2 087283 ####HEATHER ItjBexo8728 [place] [address] Size Comment Normal [facility] Comment on above: Result Comment: Spec imen received as fragments. Performed By: #### 2 969422 ####HEATHER [address] [place] [address] Sodium molar conc Not Performed [facility] Comment on above: Performed By: #### 2 114263 ####HEATHER [address] [place] [address] Surface Crystals Not Performed [facility] Comment on above: Performed By: #### 2 914811 ####HEATHER [address] [place] [address] Triamterene Not Performed [facility] Comment on above: Performed By: #### 2 307617 ####HEATHER [address] [place] [address] Uric Acid Dihydrate Not Performed [facility] Comment on above: Performed By: #### 2 672363 ####HEATHER [address] [place] [address] Uric Acid. Not Performed [facility] Comment on above: Performed By: #### 2 047782 ####HEATHER [address] [place] [id number] XR Abdomen APon 08-19-2017 INR Coag RelTime [...] kidneys. FINAL REPORT Dictated: 08/19/2017 5:15 pm Delmar SKY, Sundar KSigned (Electronic Signature): 08/19/2017 5:15 pmSigned by: Sundar Jacobsen MD Technologist: STEPHANIE [facility] Calculus Analysison 08-13-20 17 Ammonium Acid Urate Not Performed [facility] Comment on above: Performed By: #### 2 131823 ####HEATHER AgbWjrj3859 [place] [address] Body weight Measured 6.9 mg [facility] Comment on above: Performed By: #### 2 112993 ####HEATHER ShlVcus[address] [place] [address] [place] Hydrogen Phos Not Performed [facility] Comment on above: Performed By: #### 2 460556 ####HEATHER WztBmpb7954 [place] [address] [place] Oxalate, Dihydrate Not Performed [facility] Comment on above: Performed By: #### 2 366297 ####HEATHERHarmony RogersVemToio[address] [place] [address] [place] Oxalate, Monohydr 97 % [facility] Comment on above: Performed By: #### 2 182694 ####HEATHER WrqJpaq5331 [place] [address] Calcium Bilirubinate Not Performed [facility] Comment on above: Performed By: #### 2 252967 ####HEATHER CaqGete9043 [place] [address] Calcium Carbonate Not Performed [facility] Comment on above: Performed By: #### 2 969661 ####HEATHER UcaAuhr4808 [place] [address] Calcium Phos 03 % [facility] Comment on above: Performed By: #### 2 570599 ####HEATHER LaoUbpk7205 [place] [address] Cellular Material Not Performed [facility] Comment on above: Performed By: #### 2 393694 ####HEATHER BbfXzrk3942 [place] [address] Cholesterol mass conc Not Performed [facility] Comment on above: Performed By: #### 2 190319 ####HEATHER RogersVkuMtci1363 [place] [address] Color Nom (U) Brown [facility] Comment on above: Performed By: #### 2 207113 ####HEATHER RogersDqvMgig1169 [place] [address] Comment 1 Not Performed [facility] Comment on above: Performed By: #### 2 392616 ####HEATHER RogersVyyMthe9190 [place] [address] Comment 2 Not Performed [facility] Comment on above: Performed By: #### 2 116606 ####HEATHER RogersHbhMttd4799 [place] [address] Comment 3 Comment [facility] Comment on above: Result Comment: Fady dorsey questions regarding Calculi Analysis [facility]Add[facility] at: [phone]. Performed By: #### 2 560145 ####HEATHER [address] [place] [address] Composition Comment [facility] Comment on above: Result Comment: Perc entage (Represents the % composition) Performed By: #### 2 611149 ####HEATHER RogersTwkUcpq8872 [place] [address] Cystine Not Performed [facility] Comment on above: Performed By: #### 2 149234 ####HEATHER RogersCtnLdlj5191 [place] [address] Disclaimer: Comment [facility] Comment on above: Result Comment: This test was developed and its performance characteristicsdetermined by [facility]. It has not been cleared orapproved by the Food and Drug Administration.Performed At: [address] [id number] William F MD Ph:[phone] Performed By: #### 2 580736 ####HEATHER RogersKpsVczo1984 [place] [address] Dried Blood Not Performed [facility] Comment on above: Performed By: #### 2 115432 ####HEATHER RogersOfnWhjb2657 [place] [address] Mag [place] Phos Not Performed [facility] Comment on above: Performed By: #### 2 260554 ####HEATHER HztCfeb7533 [place] [address] Newberyite Not Performed [facility] Comment on above: Performed By: #### 2 659700 ####HEATHERHarmony RogersRjeImvq5253 [place] [address] Nidus Comment [facility] Comment on above: Result Comment: Nidu s composed of Calcium oxalate monohydrate. Performed By: #### 2 151607 ####HEATHERHarmony RogersUuyPtjx7743 [place] [address] Note: Comment [facility] Comment on above: Result Comment: Calc jose rafael report without photograph will follow via computer,mail, or linoleum floor layer delivery. Performed By: #### 2 959266 ####HEATHERHarmony RogersXjrZrkk7716 [place] [address] Shell Not Performed [facility] Comment on above: Performed By: #### 2 752825 ####HEATHERHarmony RogersInbTmxf6907 [place] [address] Size Comment [facility] Comment on above: Result Comment: Spec imen received as fragments. Performed By: #### 2 728698 ####HEATHERHarmony RogersOefBsde6831 [place] [address] Sodium molar conc Not Performed [facility] Comment on above: Performed By: #### 2 781288 ####HEATHERHarmony RogersXejJqeb5551 [place] [address] Surface Crystals Not Performed [facility] Comment on above: Performed By: #### 2 278060 ####HEATHERHarmony RogersNcbDfmj2570 [place] [address] Triamterene Not Performed [facility] Comment on above: Performed By: #### 2 481932 ####HEATHERHarmony RogersZvqSans6247 [place] [address] Uric Acid Dihydrate Not Performed [facility] Comment on above: Performed By: #### 2 096184 ####HEATHER RogersNikDduw4217 [place] [address] Uric Acid. Not Performed [facility] Comment on above: Performed By: #### 2 652778 ####HEATHER CnpBqhb6491 [place] [address] C Urineon 08-12-2017 C Urine Final Report: Rare N ormal skin naima isolated Normal [facility] Comment on above: Performed By: #### 2 729158 ####HEATHER BqoOtth6810 [place] [address] XR Abdomen APon 08-11-2017 XR Abdomen AP [...] by: Wally Maldonado MD Technologist: MGW Normal [facility] XR Urography Retrograde Righ ton [...] by: Sundar Jacobsen MD Technologist: HLL Normal [facility] Auto Diffon 08-10-2017 Basophils Auto #/vol (Bld) 0.0 E3/mcL Normal 0.0-0.2 [facility] Comment on above: Order Comment: Order Added by Discern Expert. Performed By: #### 2 662274 ####HEATHERHarmony RogersLttSwqe7017 [place] [address] Basophils/100 WBC Auto (Bld) 0.2 % Normal 0.0-2.0 [facility] Comment on above: Order Comment: Order Added by Discern Expert. Performed By: #### 2 228522 ####HEATHERHarmony RogersKkcPvrs5935 [place] [address] Eos Absolute 0.0 E3/mcL Normal 0.0-0.7 [facility] Comment on above: Order Comment: Order Added by Discern Expert. Performed By: #### 2 318557 ####HEATHERHarmony RogersVsxGgic5864 [place] [address] Eosinophils/100 WBC Auto (Bld) 0.5 % Normal 0.0-11.0 [facility] Comment on above: Order Comment: Order Added by Discern Expert. Performed By: #### 2 606304 ####HEATHERHarmony RogersBzqEfww2886 [place] [address] Lymphocytes Auto #/vol (Bld) 1.6 E3/mcL Normal 1.2-3.4 [facility] Comment on above: Order Comment: Order Added by Discern Expert. Performed By: #### 2 871940 ####HEATHER GgaQwzl5894 [place] [address] Lymphocytes/100 WBC Auto (Bld) 15.4 % Low 20.0-55.0 [facility] Comment on above: Order Comment: Order Added by Discern Expert. Performed By: #### 2 668749 ####HEATHERHarmony RogersWtuOwqh3384 [place] [address] Swisher Absolute 0.8 E3/mcL High 0.0-0.7 [facility] Comment on above: Order Comment: Order Added by Discern Expert. Performed By: #### 2 831107 ####HEATHER Youngo1025 [place] [address] Monocytes/100 WBC Auto (Bld) 7.4 % Normal 0.0-10.0 [facility] Comment on above: Order Comment: Order Added by Discern Expert. Performed By: #### 2 610096 ####HEATHER Youngo[address]25 [place] [address] Neutro Absolute 7.9 E3/mcL High 1.4-6.5 [facility] Comment on above: Order Comment: Order Added by Discern Expert. Performed By: #### 2 622076 ####HEATHER [address]oungo[address] [place] [address] Neutro Auto 76.5 % High 37.0-75.0 [facility] Comment on above: Order Comment: Order Added by Discern Expert. Performed By: #### 2 094957 ####HEATHER [address]go[address] [place] [address] BMPon 08-10-2017 Creatinine mass conc 1.2 mg/dL Normal 0.6-1.[address] [facility] Comment on above: Performed By: #### 2 201707 ####HEATHER [address]oungo[address] [place] [address] Urea nitrogen mass conc 18 mg/dL Normal 7-18 [facility] Comment on above: Performed By: #### 2 465971 ####HEATHER [address]oungo[address] [place] [address] Urea nitrogen/Creatinine mass ratio 15.0 ratio Normal 5.4-30.0 [facility] Comment on above: Performed By: #### 2 683961 ####HEATHER [address]oungo[address] [place] [address] Calcium mass conc 8.9 mg/dL Normal 8.4-10.2 [facility] Comment on above: Performed By: #### 2 378603 ####HEATHER Youngo[address]25 [place] [address] Chloride molar conc 108 mmol/L High 98-107 [facility] Comment on above: Performed By: #### 2 356911 ####HEATHER [address]oungo[address] [place] [address] CO2 molar conc 24.4 mmol/L Normal 24.0-30.0 [facility] Comment on above: Performed By: #### 2 200881 ####HEATHER [address]oungo[address] [place] [address] Glucose mass conc 120 mg/dL High 70-99 [facility] Comment on above: Performed By: #### 2 793930 ####HEATHER Youngo[address]25 [place] [address] Potassium molar conc 3.7 mmol/L Normal 3.5-5.[address] [facility] Comment on above: Performed By: #### 2 829088 ####HEATHER [address]oungo[address] [place] [address] Sodium molar conc 139 mmol/L Normal 136-145 [facility] Comment on above: Performed By: #### 2 632414 ####HEATHER RogersGotMzjt9976 [place] [address] CBC w/ Auto Diffon 7 Erythrocyte distribution width Auto Ratio (RBC) 13.4 % Normal 11.5-14.5 [facility] Comment on above: Performed By: #### 2 609899 ####HEATHER Youngo[address]25 [place] [address] Hematocrit Auto Volume Fraction (Bld) 42.7 % Normal 42.0-52.0 [facility] Comment on above: Performed By: #### 2 717654 ####HEATHER RogersCipXaxo6616 [place] [address] Hemoglobin mass conc (Bld) 14.6 g/dL Normal 13.5-18.0 [facility] Comment on above: Performed By: #### 2 385187 ####HEATHER RogersKitLdlw6575 [place] [address] MCH Auto Entitic mass (RBC) 31.6 pg High 27.0-31.0 [facility] Comment on above: Performed By: #### 2 [id number] ####HEATHER RogersTsqFeal5848 [place] [address] MCHC Auto mass conc (RBC) 34.2 g/dL Normal 33.0-37.0 [facility] Comment on above: Performed By: #### 2 633896 ####HEATHER RogersVvvDnzi0681 [place] [address] MCV Auto Entitic volume (RBC) 92.5 fL Normal 78.0-100.0 [facility] Comment on above: Performed By: #### 2 850184 ####HEATHER RogersLbfHfuk4953 [place] [address] Platelet mean volume Auto Entitic volume (Bld) 6.6 fL Low 7.4-11.0 [facility] Comment on above: Performed By: #### 2 302035 ####HEATHER RogersPecWvqg7354 [place] [address] Platelets Auto #/vol (Bld) 201 E3/mcL Normal 130-400 [facility] Comment on above: Performed By: #### 2 889181 ####HEATHER RogersKetIxmv5943 [place] [address] RBC Auto #/vol (Bld) 4.62 E6/mcL Normal 3.90-6.10 [facility] Comment on above: Performed By: #### 2 567597 ####HEATHER RogersRcjTsdi7242 [place] [address] WBC Auto #/vol (Bld) 10.3 E3/mcL Normal 3.6-11.0 [facility] Comment on above: Performed By: #### 2 112177 ####HEATHER RogersHvoHdws2137 [place] [address] CT Abdomen/Pelvis w/o Contra ston 08-10-2017 CT [...] pmSigned by: José Luis Pendleton MD Technologist: [facility] Normal [facility] UA Completeon 08-10-2017 Color Nom (U) [place] Abnormal Yellow [facility] Comment on above: Performed By: #### 2 [id number] ####HEATHER Youngo1025 [place] [address] Glucose mass conc (U) Negative Normal Negative [facility] Comment on above: Performed By: #### 2 902017 ####HEATHER Youngo1025 [place] [address] Ketones Ql (U) Trace Normal [facility] Comment on above: Performed By: #### 2 891958 ####HEATHER Youngo1025 [place] [address] RBC Test strip #/vol (U) /uL Abnormal 0-3 [facility] Comment on above: Performed By: #### 2 992365 ####HEATHER Youngo1025 [place] [address] UA Blood 3+ Normal Negative [facility] Comment on above: Result Comment: High concentration of Ascorbic Acid present in urine. This may cause False Negative Occ Blood. Review microscopic results and patient's clinical symptoms. Performed By: #### 2 262239 ####HEATHER Youngo1025 [place] [address] UA Ascorbic Acid 40 mg/dL High <=19 [facility] Comment on above: Performed By: #### 2 625820 ####HEATHER UwiEdmv3796 [place] [address] UA Bacteria 1+ /HPF Abnormal None [facility] Comment on above: Performed By: #### 2 155277 ####HEATHER Youngo1025 [place] [address] UA Clarity Cloudy Abnormal Clear [facility] Comment on above: Performed By: #### 2 332378 ####HEATHER Youngo1025 [place] [address] UA Leuk Est 1+ Abnormal Negative [facility] Comment on above: Performed By: #### 2 503603 ####HEATHER Youngo1025 [place] [address] UA Mucous Occasional Abnormal Trace [facility] Comment on above: Performed By: #### 2 561104 ####HEATHER RogersMifDodn7547 [place] [address] UA Nitrite Positive Abnormal Negative [facility] Comment on above: Performed By: #### 2 758787 ####HEATHER Youngo1025 [place] [address] UA pH 7.0 Normal 4.6-8.0 [facility] Comment on above: Performed By: #### 2 428174 ####HEATHER DimMagr4173 [place] [address] UA Protein 2+ Abnormal Negative [facility] Comment on above: Performed By: #### 2 757200 ####HEATHER Youngo1025 [place] [address] UA Spec Grav 1.015 Normal 1.003-1.030 [facility] Comment on above: Performed By: #### 2 780627 ####HEATHER Youngo1025 [place] [address] UA Urobilinogen 4.0 mg/dL Abnormal [facility] Comment on above: Performed By: #### 2 794780 ####HEATHER Youngo[address] [place] [address] UA WBC >50 Abnormal 0-5 [facility] Comment on above: Performed By: #### 2 062691 ####HEATHER Youn[address] [place] [address] Urobilinogen Test strip Qn (U) Negative Normal Negative [facility] Comment on above: Performed By: #### 2 016542 ####HEATHER Youngo1025 [place] [address] eGFRon 08-10-2017 eGFR AA >60 Normal [facility] Comment on above: Order Comment: Order added by Discern Expert. Performed By: #### 2 608287 ####HEATHER Youngo1025 [place] [address] GFR/1.73 sq M predicted among non-blacks MDRD vol rate/area (S/P/Bld) mL/min/{1.73_m2} Normal [facility] Comment on above: Order Comment: Order added by Discern Expert. Performed By: #### 2 829986 ####HEATHER RogersVzmGgdd0664 [place] [address] Auto Diffon 08-06-2017 Basophils Auto #/vol (Bld) 0.0 E3/mcL Normal 0.0-0.2 [facility] Comment on above: Order Comment: Order Added by Discern Expert. Performed By: #### 2 036752 ####HEATHER Youngo1025 [place] [address] Basophils/100 WBC Auto (Bld) 0.3 % Normal 0.0-2.0 [facility] Comment on above: Order Comment: Order Added by Discern Expert. Performed By: #### 2 824554 ####HEATHER Youngo1025 [place] [address] Eos Absolute 0.0 E3/mcL Normal 0.0-0.7 [facility] Comment on above: Order Comment: Order Added by Discern Expert. Performed By: #### 2 663892 ####HEATHER Youngo1025 [place] [address] Eosinophils/100 WBC Auto (Bld) 0.4 % Normal 0.0-11.0 [facility] Comment on above: Order Comment: Order Added by Cristina Expert. Performed By: #### 2 914497 ####HEATHER Youngo1025 [place] [address] Lymphocytes Auto #/vol (Bld) 1.1 E3/mcL Low 1.2-3.4 [facility] Comment on above: Order Comment: Order Added by Cristina Expert. Performed By: #### 2 041501 ####HEATHER Youngo1025 [place] [address] Lymphocytes/100 WBC Auto (Bld) 10.1 % Low 20.0-55.0 [facility] Comment on above: Order Comment: Order Added by Cristina Expert. Performed By: #### 2 761317 ####HEATHER RogersSzfIbrk8708 [place] [address] Swisher Absolute 0.6 E3/mcL Normal 0.0-0.7 [facility] Comment on above: Order Comment: Order Added by Discern Expert. Performed By: #### 2 357591 ####HEATHER RogersFueZeot8192 [place] [address] Monocytes/100 WBC Auto (Bld) 5.0 % Normal 0.0-10.0 [facility] Comment on above: Order Comment: Order Added by Cristina Expert. Performed By: #### 2 051547 ####HEATHER RogersVroLcah7362 [place] [address] Neutro Absolute 9.4 E3/mcL High 1.4-6.5 [facility] Comment on above: Order Comment: Order Added by Discern Expert. Performed By: #### 2 391293 ####HEATHER Youngo1025 [place] [address] Neutro Auto 84.2 % High 37.0-75.0 [facility] Comment on above: Order Comment: Order Added by Discern Expert. Performed By: #### 2 302544 ####HEATHER Youngo1025 [place] [address] BMPon 08-06-2017 Creatinine mass conc 1.4 mg/dL High 0.6-1.[address] [facility] Comment on above: Performed By: #### 2 564416 ####HEATHER Youngo1025 [place] [address] Urea nitrogen mass conc 18 mg/dL Normal 7-18 [facility] Comment on above: Performed By: #### 2 482302 ####HEATHER Youngo1025 [place] [address] Urea nitrogen/Creatinine mass ratio 12.9 ratio Normal 5.4-30.0 [facility] Comment on above: Performed By: #### 2 441296 ####HEATHER Youngo1025 [place] [address] Calcium mass conc 8.9 mg/dL Normal 8.4-10.2 [facility] Comment on above: Performed By: #### 2 011356 ####HEATHER Youngo1025 [place] [address] Chloride molar conc 106 mmol/L Normal 98-107 [facility] Comment on above: Performed By: #### 2 325967 ####HEATHER [address]oungo[address]25 [place] [address] CO2 molar conc 24.6 mmol/L Normal 24.0-30.0 [facility] Comment on above: Performed By: #### 2 297345 ####HEATHER Youngo1025 [place] [address] Glucose mass conc 126 mg/dL High 70-99 [facility] Comment on above: Performed By: #### 2 762807 ####HEATHER Youngo1025 [place] [address] Potassium molar conc 3.7 mmol/L Normal 3.5-5.[address] [facility] Comment on above: Performed By: #### 2 570072 ####HEATHER [address]oungo1025 [place] [address] Sodium molar conc 138 mmol/L Normal 136-145 [facility] Comment on above: Performed By: #### 2 491599 ####HEATHER Youngo1025 [place] [address] CBC w/ Auto Diffon 7 Erythrocyte distribution width Auto Ratio (RBC) 13.9 % Normal 11.5-14.5 [facility] Comment on above: Performed By: #### 2 706308 ####HEATHER Youngo1025 [place] [address]328[address] Hematocrit Auto Volume Fraction (Bld) 44.1 % Normal 42.0-52.0 [facility] Comment on above: Performed By: #### 2 853745 ####HEATHER Youngo1025 [place] [address]328[address] Hemoglobin mass conc (Bld) 15.0 g/dL Normal 13.5-18.0 [facility] Comment on above: Performed By: #### 2 970983 ####HEATHER Youngo1025 [place] [address]328[address] MCH Auto Entitic mass (RBC) 31.7 pg High 27.0-31.0 [facility] Comment on above: Performed By: #### 2 756500 ####HEATHER Youngo1025 [place] [address]328[address] MCHC Auto mass conc (RBC) 34.0 g/dL Normal 33.0-37.0 [facility] Comment on above: Performed By: #### 2 453302 ####HEATHER Youngo1025 [place] [address] MCV Auto Entitic volume (RBC) 93.1 fL Normal 78.0-100.0 [facility] Comment on above: Performed By: #### 2 225425 ####HEATHER Youngo1025 [place] [address] Platelet mean volume Auto Entitic volume (Bld) 7.1 fL Low 7.4-11.0 [facility] Comment on above: Performed By: #### 2 153997 ####HEATHER XggCrca6880 [place] [address] Platelets Auto #/vol (Bld) 180 E3/mcL Normal 130-400 [facility] Comment on above: Performed By: #### 2 190812 ####HEATHER OtxXpww3469 [place] [address] RBC Auto #/vol (Bld) 4.73 E6/mcL Normal 3.90-6.10 [facility] Comment on above: Performed By: #### 2 966431 ####HEATHER NxyXmpv9738 [place] [address] WBC Auto #/vol (Bld) 11.2 E3/mcL High 3.6-11.0 [facility] Comment on above: Performed By: #### 2 010906 ####HEATHER BheTzsh6417 [place] [address]328405 UA Completeon 08-06-2017 Color Nom (U) [place]ur[place] Abnormal Yellow [facility] Comment on above: Performed By: #### 8 [id number] ####HEATHER Urinalysis Automated Nibfxfhkam3486 [place] [address] Glucose mass conc (U) Negative Normal Negative [facility] Comment on above: Performed By: #### 8 2870988 ####HEATHER Urinalysis Automated Qxsjwxvfat7138 [place] [address] Ketones Ql (U) Trace Normal [facility] Comment on above: Performed By: #### 8 1149960 ####HEATHER Urinalysis Automated Kizxkaoxpc7924 [place] [address] RBC Test strip #/vol (U) /uL Abnormal 0-3 [facility] Comment on above: Performed By: #### 8 5252096 ####HEATHER Urinalysis Automated [address] [place] [address] UA Blood 3+ Normal Negative [facility] Comment on above: Result Comment: High concentration of Ascorbic Acid present in urine. This may cause False Negative Occ Blood. Review microscopic results and patient's clinical symptoms. Performed By: #### 8 1598571 ####HEATHER Urinalysis Automated Aajmqtyjzx7668 [place] [address] UA Ascorbic Acid 40 mg/dL High <=19 [facility] Comment on above: Performed By: #### 8 6643566 ####HEATHER Urinalysis Automated Maqehcvulf3412 [place] [address] UA Clarity Cloudy Abnormal Clear [facility] Comment on above: Performed By: #### 8 0388923 ####HEATHER Urinalysis Automated [address] [place] [address] UA Leuk Est Negative Normal Negative [facility] Comment on above: Performed By: #### 8 3993248 ####HEATHER Urinalysis Automated Rsvtkkieze4966 [place] [address] UA Mucous Trace Abnormal Trace [facility] Comment on above: Performed By: #### 8 2303230 ####HEATHER Urinalysis Automated [address] [place] [address] UA Nitrite Negative Normal Negative [facility] Comment on above: Performed By: #### 8 7688873 ####HEATHER Urinalysis Automated [address] [place] [address] UA pH 5.0 Normal 4.6-8.0 [facility] Comment on above: Performed By: #### 8 5337790 ####HEATHER Urinalysis Automated [address] [place] [address] UA Protein 2+ Abnormal Negative [facility] Comment on above: Performed By: #### 8 6792006 ####HEATHER Urinalysis Automated [address] [place] [address] UA Spec Grav 1.023 Normal 1.003-1.030 [facility] Comment on above: Performed By: #### 8 5127599 ####HEATHER Urinalysis Automated Fqqeastjtg2502 [place] [address]328[address] UA Squam Epithelial 0-5 Normal 0-5 [facility] Comment on above: Performed By: #### 8 4208706 ####HEATHER Urinalysis Automated [address]inuqflm[address] [place] [address] UA Urobilinogen Negative Normal [facility] Comment on above: Performed By: #### 8 8967657 ####HEATHER Urinalysis Automated Dwkrbctkuw4715 [place] [address] Urobilinogen Test strip Qn (U) Negative Normal Negative [facility] Comment on above: Performed By: #### 8 [id number] ####HEATHER Urinalysis Automated Lcxqaqylid4821 [place] [address] XR Abdomen APon 08-06-2017 XR Abdomen AP [...] amSigned by: Figueroa Telles MD Technologist: [facility] eGFRon 08-06-2017 eGFR AA >60 [facility] Comment on above: Order Comment: Order added by Cristina Expert. Performed By: #### 2 995437 ####HEATHER WlhTqrc5330 [place] [address] GFR/1.73 sq M predicted among non-blacks MDRD vol rate/area (S/P/Bld) 52 mL/min/1.73 m2 [facility] Comment on above: Order Comment: Order added by Discern Expert. Performed By: #### 2 544855 ####HEATHER Youngo1025 [place] [address] Auto Diffon 08-03-2017 Basophils Auto #/vol (Bld) 0.0 E3/mcL Normal 0.0-0.2 [facility] Comment on above: Order Comment: Order Added by Discern Expert. Performed By: #### 2 949657 ####HEATHER Youngo1025 [place] [address] Basophils/100 WBC Auto (Bld) 0.5 % Normal 0.0-2.0 [facility] Comment on above: Order Comment: Order Added by Discern Expert. Performed By: #### 2 223845 ####HEATHER Youngo[address]25 [place] [address] Eos Absolute 0.1 E3/mcL Normal 0.0-0.7 [facility] Comment on above: Order Comment: Order Added by Discern Expert. Performed By: #### 2 577605 ####HEATHER [address]oungo[address]25 [place] [address] Eosinophils/100 WBC Auto (Bld) 1.2 % Normal 0.0-11.0 [facility] Comment on above: Order Comment: Order Added by Cristina Expert. Performed By: #### 2 505333 ####HEATHER Youngo1025 [place] [address] Lymphocytes Auto #/vol (Bld) 2.1 E3/mcL Normal 1.2-3.4 [facility] Comment on above: Order Comment: Order Added by Discern Expert. Performed By: #### 2 341761 ####HEATHER [address]oungo1025 [place] [address] Lymphocytes/100 WBC Auto (Bld) 26.4 % Normal 20.0-55.0 [facility] Comment on above: Order Comment: Order Added by Discern Expert. Performed By: #### 2 450694 ####HEATHER RogersDciUtpm9363 [place] [address] Swisher Absolute 0.5 E3/mcL Normal 0.0-0.7 [facility] Comment on above: Order Comment: Order Added by Discern Expert. Performed By: #### 2 389234 ####HEATHER [address]oungo[address]25 [place] [address] Monocytes/100 WBC Auto (Bld) 6.0 % Normal 0.0-10.0 [facility] Comment on above: Order Comment: Order Added by Discern Expert. Performed By: #### 2 289350 ####HEATHER [address]oungo[address]25 [place] [address] Neutro Absolute 5.4 E3/mcL Normal 1.4-6.5 [facility] Comment on above: Order Comment: Order Added by Discern Expert. Performed By: #### 2 015290 ####HEATHER [address]go[address]25 [place] [address] Neutro Auto 65.9 % Normal 37.0-75.0 [facility] Comment on above: Order Comment: Order Added by Discern Expert. Performed By: #### 2 037453 ####HEATHER [address]oungo1025 [place] [address] BMPon 08-03-2017 Creatinine mass conc 1.0 mg/dL Normal 0.6-1.[address] [facility] Comment on above: Performed By: #### 2 553632 ####HEATHER RogersBhwRerr0333 [place] [address] Urea nitrogen mass conc 13 mg/dL Normal 7-18 [facility] Comment on above: Performed By: #### 2 817397 ####HEATHER RogersTezGtmk6101 [place] [address] Urea nitrogen/Creatinine mass ratio 13.0 ratio Normal 5.4-30.0 [facility] Comment on above: Performed By: #### 2 315610 ####HEATHER RogersVynBaql4024 [place] [address] Calcium mass conc 9.0 mg/dL Normal 8.4-10.2 [facility] Comment on above: Performed By: #### 2 730544 ####HEATHER RogersSqiYeqy5976 [place] [address] Chloride molar conc 111 mmol/L High 98-107 [facility] Comment on above: Performed By: #### 2 449791 ####HEATHER RogersJqfKzyw0506 [place] [address] CO2 molar conc 24.2 mmol/L Normal 24.0-30.0 [facility] Comment on above: Performed By: #### 2 957164 ####HEATHER RogersUvvFndv3721 [place] [address] Glucose mass conc 102 mg/dL High 70-99 [facility] Comment on above: Performed By: #### 2 267163 ####HEATHER RogersBmhHumr5945 [place] [address] Potassium molar conc 3.8 mmol/L Normal 3.5-5.[address] [facility] Comment on above: Performed By: #### 2 750628 ####HEATHER RogersBijBrvx1993 [place] [address] Sodium molar conc 142 mmol/L Normal 136-145 [facility] Comment on above: Performed By: #### 2 692920 ####HEATHER IhxUclv8092 [place] [address] CBC w/ Auto Diffon Erythrocyte distribution width Auto Ratio (RBC) 14.2 % Normal 11.5-14.5 [facility] Comment on above: Performed By: #### 2 517751 ####HEATHER RogersIhdGatz2506 [place] [address] Hematocrit Auto Volume Fraction (Bld) 49.1 % Normal 42.0-52.0 [facility] Comment on above: Performed By: #### 2 805127 ####HEATHER RogersXyqVici6879 [place] [address] Hemoglobin mass conc (Bld) 16.6 g/dL Normal 13.5-18.0 [facility] Comment on above: Performed By: #### 2 356047 ####HEATHER RogersSmmEnuw7167 [place] [address] MCH Auto Entitic mass (RBC) 31.8 pg High 27.0-31.0 [facility] Comment on above: Performed By: #### 2 392341 ####HEATHER RogersYimKvxh0049 [place] [address] MCHC Auto mass conc (RBC) 33.8 g/dL Normal 33.0-37.0 [facility] Comment on above: Performed By: #### 2 524745 ####HEATHER RogersUlmMxxm7771 [place] [address] MCV Auto Entitic volume (RBC) 94.0 fL Normal 78.0-100.0 [facility] Comment on above: Performed By: #### 2 284638 ####HEATHER RogersSvpFdnm7574 [place] [address] Platelet mean volume Auto Entitic volume (Bld) 6.9 fL Low 7.4-11.0 [facility] Comment on above: Performed By: #### 2 655669 ####HEATHER RogersLhzRqwr8476 [place] [address] Platelets Auto #/vol (Bld) 191 E3/mcL Normal 130-400 [facility] Comment on above: Performed By: #### 2 556740 ####HEATHER RogersJpnDoht7480 [place] [address] RBC Auto #/vol (Bld) 5.23 E6/mcL Normal 3.90-6.10 [facility] Comment on above: Performed By: #### 2 354874 ####HEATHER RogersUltZybh9896 [place] [address] WBC Auto #/vol (Bld) 8.1 E3/mcL Normal 3.6-11.[address] [facility] Comment on above: Performed By: #### 2 736276 ####HEATHER RogersRjpTeok2100 [place] [address] CT Abdomen/Pelvis w/o Contra stomitchell 08-03-2017 CT Abdomen/Pelvis w/o Contrast Exam Date/Time:08/03/2017 [...] by: Blair Galvin MD Technologist: LILIAN Normal [facility] UA Completeon 08-03-2017 Color Nom (U) [place] Abnormal Yellow [facility] Comment on above: Performed By: #### 8 [id number] ####HEATHER Urinalysis Automated Nghffvlwfk1676 [place] [address] Glucose mass conc (U) Negative Normal Negative [facility] Comment on above: Performed By: #### 8 8743454 ####HEATHER Urinalysis Automated Ibxzwbdsqe6034 [place] [address] Ketones Ql (U) Trace Normal [facility] Comment on above: Performed By: #### 8 6167967 ####HEATHER Urinalysis Automated Puigizepeb1744 [place] [address] RBC Test strip #/vol (U) /uL Abnormal 0-3 [facility] Comment on above: Performed By: #### 8 [id number] ####HEATHER Urinalysis Automated Ouramvrucr5512 [place] [address] UA Blood 3+ Normal Negative [facility] Comment on above: Result Comment: High concentration of Ascorbic Acid present in urine. This may cause False Negative Occ Blood. Review microscopic results and patient's clinical symptoms. Performed By: #### 8 [id number] ####HEATHER Urinalysis Automated Znzryndutn4242 [place] [address] UA Ascorbic Acid 40 mg/dL High <=19 [facility] Comment on above: Performed By: #### 8 3703201 ####HEATHER Urinalysis Automated Pqtuxcojou1902 [place] [address] UA Clarity Cloudy Abnormal Clear [facility] Comment on above: Performed By: #### 8 [id number] ####HEATHER Urinalysis Automated [address] [place] [address] UA Leuk Est Trace Normal Negative [facility] Comment on above: Performed By: #### 8 7346418 ####HEATHER Urinalysis Automated [address]edtagzlol[address] [place] [address] UA Mucous Many Abnormal Trace [facility] Comment on above: Performed By: #### 8 8138070 ####HEATHER Urinalysis Automated Hxlwicqnuk1600 [place] [address] UA Nitrite Negative Normal Negative [facility] Comment on above: Performed By: #### 8 9110228 ####HEATHER Urinalysis Automated [address]brpkrknj[address] [place] [address] UA pH 5.0 Normal 4.6-8.0 [facility] Comment on above: Performed By: #### 8 9707516 ####HEATHER Urinalysis Automated Eyaxloupoy2821 [place] [address] UA Protein 2+ Abnormal Negative [facility] Comment on above: Performed By: #### 8 3036851 ####HEATHER Urinalysis Automated Jnuvrojn[address] [place], [place] [address] UA Spec Grav 1.019 Normal 1.003-1.030 [facility] Comment on above: Performed By: #### 8 9274321 ####HEATHER Urinalysis Automated Rqzosgfooj4412 [place] [address] UA Urobilinogen Negative Normal [facility] Comment on above: Performed By: #### 8 3914660 ####HEATHER Urinalysis Automated Qnfjghvikp3732 [place] [address] UA WBC >50 Abnormal 0-5 [facility] Comment on above: Performed By: #### 8 5241144 ####HEATHER Urinalysis Automated Tfkbblnjwr4719 [place] [address] Urobilinogen Test strip Qn (U) Negative Normal Negative [facility] Comment on above: Performed By: #### 8 7203575 ####HEATHER Urinalysis Automated Hzwawgrvyx7610 [place] [address] eGFRon 08-03-2017 eGFR AA >60 Normal [facility] Comment on above: Order Comment: Order added by Discern Expert. Performed By: #### 1 7094945 ####HEATHER RwoVufh2942 [place] [address] GFR/1.73 sq M predicted among non-blacks MDRD vol rate/area (S/P/Bld) mL/min/{1.73_m2} Normal [facility] Comment on above: Order Comment: Order added by Discern Expert. Performed By: #### 1 [id number] ####HEATHER ZgeNxev8771 [place] [address] TSHon 05-19-2017 Thyrotropin Qn 0.86 mIU/m Normal 0.30-5.60 [facility] Comment on above: Performed By: #### 2 583939 ####HEATHER TwkLslg4376 [place] [address] Vital Signs Date Time Vital Sign Value Performing Clinician Facility 05-12-2025 11:38-0400 Body temperature 96.9 [degF] Dr. Jarad Rey MD Work Phone: [facility] 05-12-2025 11:38-0400 Diastolic blood pressure 59 mm[Hg] Dr. Jarad Rey MD Work Phone: [facility] 05-12-2025 11:38-0400 Heart rate 79 /min Dr. Jarad Rey MD Work Phone: [facility] 05-12-2025 11:38-0400 Respiratory rate 16 /min Dr. Jarad Rey MD Work Phone: [facility] 05-12-2025 11:38-0400 SaO2% (BldA) [Mass fraction] 100 % Dr. Jarad Rey MD Work Phone: [facility] 05-12-2025 11:38-0400 Systolic blood pressure 137 mm[Hg] Dr. Jarad Rey MD Work Phone: [facility] 05-12-2025 10:06-0400 Body height 175.[address] Jarad Rey MD Work Phone: [facility] 05-12-2025 10:06-0400 Body mass index (BMI) [Ratio] 34.9 kg/m2 Dr. Jarad Rey MD Work Phone: [facility] 05-12-2025 10:06-0400 Body weight 107.[address] Jarad Rey MD Work Phone: [facility] 05-06-2025 11:31-0400 Body temperature 98 [degF] Dr. Jarad Rey MD Work Phone: [facility] 05-06-2025 11:31-0400 Diastolic blood pressure 73 mm[Hg] Dr. Jarad Rey MD Work Phone: [facility] 05-06-2025 11:31-0400 Heart rate 81 /min Dr. Jarad Rey MD Work Phone: [facility] 05-06-2025 11:31-0400 Respiratory rate 18 /min Dr. Jarad Rey MD Work Phone: [facility] 05-06-2025 11:31-0400 SaO2% (BldA) [Mass fraction] 99 % Dr. Jarad Rey MD Work Phone: [facility] 05-06-2025 11:31-0400 Systolic blood pressure 137 mm[Hg] Dr. Jarad Rey MD Work Phone: [facility] 05-05-2025 04:28-0400 Body height 175.[address] Jarad Rey MD Work Phone: [facility] 05-05-2025 04:28-0400 Body mass index (BMI) [Ratio] 36 kg/m2 Dr. Jarad Rey MD Work Phone: [facility] 05-05-2025 04:28-0400 Body weight 110.[address] Jarad Rey MD Work Phone: [facility] 05-05-2025 01:59-0400 Body temperature 96.91 [degF] Elicia Love DO Work Phone: 1(698)545-734438 [place] [address] 05-05-2025 01:59-0400 Diastolic blood pressure 75 mm[Hg] Elicia Love DO Work Phone: 7(352)593-728738 [place] [address] 05-05-2025 01:59-0400 Heart rate 67 /min Elicia Love DO Work Phone: 4(560)866-313638 [place] [address] 05-05-2025 01:59-0400 Respiratory rate 16 /min Elicia Love DO Work Phone: 3(865)331-137210 [place] [address] 05-05-2025 01:59-0400 Systolic blood pressure 157 mm[Hg] Elicia Love DO Work Phone: [facility] 05-05-2025 01:58-0400 SaO2% (BldA) [Mass fraction] 96 % Elicia Love DO Work Phone: [facility] 05-04-2025 21:54-0400 Body height 175.3 cm Elicia Love DO Work Phone: [facility] 05-04-2025 21:54-0400 Body mass index (BMI) [Ratio] 35.44 kg/m2 Elicia Love DO Work Phone: [facility] 05-04-2025 21:54-0400 Body weight 108.86 kg Elicia Love DO Work Phone: [facility] 04-25-2025 17:15-0400 Body temperature 97.3 [degF] Dr. Jarad Rey MD Work Phone: [facility] 04-25-2025 17:15-0400 Diastolic blood pressure 85 mm[Hg] Dr. Jarad Rey MD Work Phone: [facility] 04-25-2025 17:15-0400 Heart rate 56 /min Dr. Jarad Rey MD Work Phone: [facility] 04-25-2025 17:15-0400 Respiratory rate 16 /min Dr. Jarad Rey MD Work Phone: [facility] 04-25-2025 17:15-0400 SaO2% (BldA) [Mass fraction] 100 % Dr. Jarad Rey MD Work Phone: [facility] 04-25-2025 17:15-0400 Systolic blood pressure 152 mm[Hg] Dr. Jarad Rey MD Work Phone: [facility] 04-25-2025 12:03-0400 Body height 175.[address] Jarad Rey MD Work Phone: [facility] 04-25-2025 12:03-0400 Body mass index (BMI) [Ratio] 36.1 kg/m2 Dr. Jarad Rey MD Work Phone: [facility] 04-25-2025 12:03-04[address] Body weight [address] Jarad Rey MD Work Phone: [facility] 03-25-2025 22:58-0400 Diastolic blood pressure 99 mm[Hg] Zak Alvarez MD Work Phone: [facility] 03-25-2025 22:58-0400 Heart rate 58 /min Zak Alvarez MD Work Phone: [facility] 03-25-2025 22:58-0400 Respiratory rate 16 /min Zak Alvarez MD Work Phone: [facility] 03-25-2025 22:58-0400 SaO2% (BldA) [Mass fraction] 96 % Zak Alvarez MD Work Phone: [facility] 03-25-2025 22:58-0400 Systolic blood pressure 155 mm[Hg] Zak Alvarez MD Work Phone: [facility] 03-25-2025 21:41-0400 Body height 175.3 cm Zak Alvarez MD Work Phone: [facility] 03-25-2025 21:41-0400 Body mass index (BMI) [Ratio] 36.18 kg/m2 Zak Alvarez MD Work Phone: [facility] 03-25-2025 21:41-0400 Body temperature 97.59 [degF] Zak Alvarez MD Work Phone: [facility] 03-25-2025 21:41-0400 Body weight 111.13 kg Zak Alvarez MD Work Phone: [facility] 09-13-2024 10:56-0500 Body mass index (BMI) [Ratio] 35.29 kg/m2 Isabela Bazan MD Work Phone: [facility] 09-13-2024 10:56-0500 Body weight 108.41 kg Isabela Bazan MD Work Phone: [facility] 09-13-2024 10:56-0500 Diastolic blood pressure 90 mm[Hg] Isabela Bazan MD Work Phone: [facility] 09-13-2024 10:56-0500 Heart rate 61 /min Isabela Bazan MD Work Phone: [facility] 09-13-2024 10:56-0500 Systolic blood pressure 150 mm[Hg] Isabela Bazan MD Work Phone: [facility] 02-23-2024 11:08-0400 Body mass index (BMI) [Ratio] 34.11 kg/m2 Isabela Bazan MD Work Phone: [facility] 02-23-2024 11:08-0400 Body weight 104.78 kg Isabela Bazan MD Work Phone: [facility] 02-23-2024 11:08-0400 Respiratory rate 16 /min Isabela Bazan MD Work Phone: [facility] 11-15-2023 15:27-0400 Body mass index (BMI) [Ratio] 33.97 kg/m2 Isabela Bazan MD Work Phone: [facility] 11-15-2023 15:27-0400 Body weight 104.33 kg Isabela Bazan MD Work Phone: [facility] 11-15-2023 15:27-0400 Respiratory rate 16 /min Isabela Bazan MD Work Phone: [facility] 11-09-2023 21:02-0400 Diastolic blood pressure 71 mm[Hg] Jarad Rey MD Work Phone: [facility] 11-09-2023 21:02-0400 Heart rate 74 /min Jarad Rey MD Work Phone: [facility] 11-09-2023 21:02-0400 Respiratory rate 16 /min Jarad Rey MD Work Phone: [facility] 11-09-2023 21:02-0400 SaO2% (BldA) [Mass fraction] 95 % Jarad Rey MD Work Phone: [facility] 11-09-2023 21:02-0400 Systolic blood pressure 121 mm[Hg] Jarad Rey MD Work Phone: [facility] 11-09-2023 18:33-0400 Body height 175.3 cm Jarad Rey MD Work Phone: [facility] 11-09-2023 18:33-0400 Body mass index (BMI) [Ratio] 33.97 kg/m2 Jarad Rey MD Work Phone: [facility] 11-09-2023 18:33-0400 Body temperature 98.29 [degF] Jarad Rey MD Work Phone: [facility] 11-09-2023 18:33-0400 Body weight 104.33 kg Jarad Rey MD Work Phone: [facility] 11-01-2023 10:15-0500 Body weight 107.05 kg Isabela Bazan MD Work Phone: [facility] 10-07-2023 10:21-0500 Body weight 107.05 kg Isabela Bazan MD Work Phone: [facility] 10-07-2023 10:21-0500 Respiratory rate 16 /min Isabela Bazan MD Work Phone: [facility] 02-17-2021 20:57-0400 Body height 175.3 cm Oscar Dickens MD Work Phone: [employer] Work Phone: 02-17-2021 20:57-0400 Body mass index (BMI) [Ratio] 34.7 kg/m2 Oscar Dickens MD Work Phone: [employer] Work Phone: 02-17-2021 20:57-0400 Body temperature 98.8 [degF] Oscar Dickens MD Work Phone: [employer] Work Phone: 02-17-2021 20:57-0400 Body weight 106.59 kg Oscar Dickens MD Work Phone: [employer] Work Phone: 02-17-2021 20:57-0400 Diastolic blood pressure 82 mm[Hg] Oscar Dickens MD Work Phone: [employer] Work Phone: 02-17-2021 20:57-0400 Heart rate 63 /min Oscar Dickens MD Work Phone: [employer] Work Phone: 02-17-2021 20:57-0400 Respiratory rate 16 /min Oscar Dickens MD Work Phone: [employer] Work Phone: 02-17-2021 20:57-0400 SaO2% (BldA) [Mass fraction] 96 % Oscar Dickens MD Work Phone: [employer] Work Phone: 02-17-2021 20:57-0400 Systolic blood pressure 145 mm[Hg] Oscar Dickens MD Work Phone: [employer] Work Phone: 09-14-2019 09:55-0500 Diastolic blood pressure 63 mm[Hg] Familia Oliva MD Work Phone: [employer] Work Phone: 09-14-2019 09:55-0500 Heart rate 65 /min Familia Oliva MD Work Phone: [employer] Work Phone: 09-14-2019 09:55-0500 Respiratory rate 16 /min Familia Oliva MD Work Phone: [employer] Work Phone: 09-14-2019 09:55-0500 SaO2% (BldA) [Mass fraction] 95 % Familia Oliva MD Work Phone: [employer] Work Phone: 09-14-2019 09:55-0500 Systolic blood pressure 135 mm[Hg] Familia Oliva MD Work Phone: [employer] Work Phone: 09-14-2019 09:30-0500 Body temperature 97.59 [degF] Familia Oliva MD Work Phone: [employer] Work Phone: 09-14-2019 07:16-0500 Body height 175.3 cm Familia Oliva MD Work Phone: [employer] Work Phone: 09-14-2019 07:16-0500 Body mass index (BMI) [Ratio] 34.7 kg/m2 Familia Oliva MD Work Phone: [employer] Work Phone: 09-14-2019 07:16-0500 Body weight 106.59 kg Familia Oliva MD Work Phone: [employer] Work Phone: 05-19-2017 14:04-0400 BMI (Body Mass Index) 32.93 kg/m2 Trace Barreto Viv[facility] Work Phone: 05-19-2017 14:04-0400 BP Diastolic 72 mm[Hg] Trace Barreto Viv[facility] Work Phone: 05-19-2017 14:04-0400 BP Systolic 125 mm[Hg] Trace Barreto Vivocha Work Phone: 05-19-2017 14:04-0400 Height 175.3 cm Trace Riverahta [facility] Work Phone: 05-19-2017 14:04-0400 Pulse (Heart Rate) 49 /min Trace Gipsona [facility] Work Phone: 05-19-2017 14:04-0400 Pulse Oximetry 96 % Trace Gipsona Vivocha Work Phone: 05-19-2017 14:04-0400 Weight 101.15 kg Trace Barreto [facility] Work Phone: Encounters Encounter Date Encounter Type Care Provider Facility Start: 06-27-2025 End: 06-27-2025 ambulatory [facility] Start: 06-27-2025 End: 06-27-2025 Encounter for general adult medical examination without abnormal findings [facility] Start: 06-27-2025 End: 06-27-2025 Patient encounter procedure Jarad Rey MD Work Phone: [facility] Start: 06-27-2025 End: 06-27-2025 Subsequent hospital visit by physician Jarad Rey MD Work Phone: [facility] Comment on above: Medicare annual well ness visit, subsequent Start: 05-12-2025 End: 05-12-2025 Emergency department patient visit Dr. Jarad Rey MD Work Phone: -Emergency Department Work Phone: Start: 05-05-2025 End: 05-06-2025 ambulatory Harjit Lam Facility:[facility] Start: 05-05-2025 End: 05-06-2025 Evaluation and management of inpatient Dr. Harjit Lam MD -Medical Surgical 3 Work Phone: Start: 05-05-2025 End: 05-06-[address] Jarad Rey MD Work Phone: -Medical Surgical 3 Start: 05-04-2025 End: 05-05-2025 Emergency department patient visit Elicia Love DO Work Phone: [facility] Emergency Medicine Comment on above: Ureteral calculus (P rimary Dx) Start: 04-25-2025 End: 04-25-2025 Admission to same day surgery center Dr. Harjit Lam MD -[facility] Start: 04-25-2025 End: 04-25-[address] Jarad Rey MD Work Phone: -[facility] Start: 04-10-2025 End: 04-10-[address] Jarad Rey MD Work Phone: -Radiology [facility] Start: 04-10-2025 End: 04-10-2025 Patient encounter procedure Melba [place] -Radiology [facility] Work Phone: Start: 04-09-2025 End: 04-11-2025 ambulatory Jarad Rey Facility:[facility] Start: 04-09-2025 End: 04-11-2025 Subsequent hospital visit by physician Kaylynn Payne MD Work Phone: [facility] Comment on above: Gallbladder polyp Start: 03-25-2025 End: 03-26-2025 Emergency department patient visit Zak Alvarez MD Work Phone: [facility] Emergency Medicine Comment on above: Hemorrhagic cystitis (Primary Dx) Start: 09-13-2024 End: 09-13-2024 Office outpatient visit 25 minutes Isabela Bazan MD Work Phone: [facility] Comment on above: History of kidney st ones; Benign prostatic hyperplasia with lower urinary tract symptoms, symptom details unspecified; Nocturia Start: 09-13-2024 End: 09-13-2024 Subsequent hospital visit by physician German Acevedo X-Ray [facility] Comment on above: History of kidney st ones Start: 09-13-2024 End: 09-13-2024 ambulatory [facility] Amb[facility] Start: 06-26-2024 End: 06-26-2024 Patient encounter procedure Jarad Rey MD Work Phone: [facility] Start: 06-26-2024 End: 06-26-2024 Subsequent hospital visit by physician Jarad Rey MD Work Phone: [facility] Comment on above: Encounter for annual wellness exam in Medicare patient Start: 02-23-2024 End: 02-23-2024 Office outpatient visit 25 minutes Isabela Bazan MD Work Phone: [facility] Comment on above: Benign prostatic hyp erplasia with lower urinary tract symptoms, symptom details unspecified (Primary Dx); History of kidney stones; Nocturia Start: 02-23-2024 End: 02-23-2024 Subsequent hospital visit by physician German Acevedo X-[facility] Comment on above: History of kidney st ones Start: 02-23-2024 End: 02-23-2024 ambulatory [facility] Start: 12-16-2023 End: 12-16-2023 Office outpatient visit 25 minutes Isabela Bazan MD Work Phone: [facility] Comment on above: History of kidney st ones; Nocturia; Benign prostatic hyperplasia with lower urinary tract symptoms, symptom details unspecified Start: 12-16-2023 End: 12-16-2023 ambulatory [facility] Start: 11-15-2023 End: 11-15-2023 Office outpatient visit 25 minutes Isabela Bazan MD Work Phone: [facility] Comment on above: Benign prostatic hyp erplasia with lower urinary tract symptoms, symptom details unspecified; Dysuria; History of kidney stones; Nocturia; Retention of urine Start: 11-15-2023 End: 11-15-2023 ambulatory [facility] Start: 11-10-2023 End: 11-10-2023 Office outpatient visit 25 minutes Isabela Bazan MD Work Phone: [facility] Comment on above: Nocturia; Dysuria; Benign prostatic hyperplasia with lower urinary tract symptoms, symptom details unspecified Start: 11-10-2023 End: 11-10-2023 ambulatory [facility] Start: 11-09-2023 End: 11-09-2023 Emergency department patient visit Jarad Rey MD Work Phone: [facility] Emergency Medicine Comment on above: Urinary retention (P rimary Dx); Urinary tract infection with hematuria, site unspecified Start: 11-08-2023 End: 11-09-2023 ambulatory JARAD REY [facility] Start: 11-08-2023 End: 11-08-2023 Phys/qhp telephone evaluation 11-20 min Isabela Bazan MD Work Phone: [facility] Comment on above: Nocturia; Benign prostatic hyperplasia with lower urinary tract symptoms, symptom details unspecified; History of kidney stones; Dysuria Start: 11-08-2023 End: 11-08-2023 ambulatory [facility] Start: 11-01-2023 End: 11-01-2023 Patient encounter procedure Isabela Bazan MD Work Phone: [facility] Comment on above: Hematuria, unspecifi ed type (Primary Dx) Start: 11-01-2023 End: 11-01-2023 ambulatory [facility] Ambulatory Start: 10-07-2023 End: 10-08-2023 ambulatory [facility] Start: 10-07-2023 End: 10-07-2023 Subsequent hospital visit by physician German Hdez X-Ray [facility] Comment on above: History of kidney st ones Start: 10-07-2023 End: 10-07-2023 Office outpatient new 45 minutes Isabela Bazan MD Work Phone: [facility] Comment on above: Benign prostatic hyp erplasia with lower urinary tract symptoms, symptom details unspecified; Nocturia; History of kidney stones Start: 10-07-2023 End: 10-07-2023 ambulatory [facility] Start: 08-17-2023 End: 08-17-20[facility] Start: 12-29-2022 End: 01-02-2023 ambulatory [facility] Start: 06-15-2022 End: 06-15-2022 Subsequent hospital visit by physician Jarad Rey MD Work Phone: [facility] Start: 04-02-2022 End: 04-04-2022 Subsequent hospital visit by physician Serrano X-Ray Room 1 [facility] Radiology Comment on above: SOB (shortness of br eath) Start: 04-02-2022 End: 04-04-2022 Subsequent hospital visit by physician Jarad Rey MD Work Phone: [facility] Comment on above: SOB (shortness of br eath) Start: 01-05-2022 Patient encounter procedure Jarad Rey Work Phone: [facility] Work Phone: Start: 07-03-2021 End: 07-03-2021 [...] End: 03-01-2021 Subsequent hospital visit by physician Wallace Nuc Med Injection Room 1 [facility] Nuclear Medicine Comment on above: THURMAN (dyspnea on exer tion) Start: 02-17-2021 End: 02-17-2021 Emergency department patient visit Oscar Dickens MD Work Phone: [facility] ED Comment on above: Right hand pain (Sybil marilyn Dx) Start: 06-10-2020 End: 06-10-2020 Subsequent hospital visit by physician Jarad [facility] Comment on above: Prostate cancer scre ening; Annual physical exam Start: 09-14-2019 End: 09-14-2019 Subsequent hospital visit by physician Familia Oliva MD Work Phone: [facility] Start: 05-15-2019 End: 05-15-2019 Subsequent hospital visit by physician Noel Lab Schedule [facility] Comment on above: Annual physical exam Start: 05-08-2019 End: 05-08-2019 Subsequent hospital visit by physician Jevon Ekg Rm 1 EKG Comment on above: Arrived Start: 05-08-2019 End: 05-08-2019 Subsequent hospital visit by physician Noel Ekg Holter Sched [facility] Cardiopulmonary Department Comment on above: PVC (premature ventr icular contraction) Start: 05-24-2018 End: 05-24-2018 Patient encounter ESA CASTAÑEDA Facility:[id number] Start: 05-04-2018 Patient encounter Esa Maddy Fac ility:[facility] Start: 05-04-2018 Patient encounter Esa Aminagi Fac ility:[facility] Start: 04-26-2018 Patient encounter JUSTUS Hector ity:[facility] Start: 04-26-2018 End: 04-26-2018 Patient encounter Aramis Beaulieu Facility:[facility] Start: 01-05-2018 End: 01-06-2018 Patient encounter Isabela Bazan Facility:[facility] [place] Start: 12-09-2017 End: 12-10-2017 Patient encounter Aramis Beaulieu Facility:[facility] Start: 10-26-2017 End: 10-26-2017 Patient encounter Aramis Beaulieu Facility:[facility] Start: 10-25-2017 End: 10-26-2017 Patient encounter Aramis Beaulieu Facility:[facility] Start: 10-15-2017 Patient encounter ARAMIS Ruth acility:[facility] Start: 10-06-2017 End: 10-07-2017 Patient encounter [facility] Start: 09-28-2017 End: 09-28-2017 Patient encounter Isabela Bazan Facility:[facility] Start: 09-10-2017 End: 09-11-2017 Patient encounter [facility]an [facility] Start: 08-20-2017 End: 08-20-2017 Patient encounter Aramis Beaulieu Facility:[facility] Start: 08-19-2017 End: 08-20-2017 Patient encounter Isabela Bazan Facility:[facility] Start: 08-11-2017 End: 08-12-2017 Patient encounter Isabela Bazan Facility:[facility] Start: 08-10-2017 End: 08-10-2017 Emergency department patient visit Aramis Beaulieu Facility:[facility] Start: 08-06-2017 End: 08-06-2017 Patient encounter Aramis Beaulieu Facility:[facility] Start: 08-03-2017 End: 08-03-2017 Emergency department patient visit Aramis Beaulieu Facility:[facility] Start: 06-28-2017 [facility] Start: 05-26-2017 Ambulatory TRACE RIVERAHTA [facility] Ambulatory Start: 05-19-2017 End: 05-25-2017 Ambulatory TRACE CLIFTON [facility] Start: 05-19-2017 Office outpatient visit 25 minutes Trace Barreto Work Phone: [facility] Start: 06-10-2015 Refill Pat edouard MANAGER BUSINESS OPERATIONS Work Phone: [facility] Comment on above: Medication Refill Start: 06-03-2015 Refill Brianajanel Benitezhenry Gan MANAGER BUSINESS OPERATIONS Work Phone: [facility] Comment on above: Medication Refill Procedures Date Procedure Procedure Detail Performing Clinician Start: 06-27-2025 Lipid panel Jarad bo MD Work Phone: Start: 05-12-2025 Urnls dip stick/tabl et reagent auto microscopy Dr. Jarad Rey MD Work Phone: Start: 05-06-[address] Jarad [...] abdominal real ti me w/image limited Kaylynn Payne MD Work Phone: Start: 03-25-2025 Urinalysis microscop [...] Work Phone: Start: 06-10-2020 [object Object] Jarad Robb Comment on above: When the Total PSA i s between 3.00 and 10.00 ng/mL, consider requesting a Free PSA to aid in diagnosis. Start: 06-10-2020 Comprehensive metabo lic panel Jarad Arauzz Work Phone: Start: 06-10-2020 Lipid panel Jarad bo Work Phone: Start: 06-10-2020 PSA screening Jaradmirian [place] Work Phone: Start: 09-14-2019 Colonoscopy Jarad bo MD Work Phone: Start: 05-15-2019 Comprehensive metabo lic panel Jarad Rey Work Phone: Start: 05-15-2019 Lipid panel Jarad bo Work Phone: Plan of Treatment Date Care Activity Detail Author Start: 09-14-2029 Colon cancer screen colonoscopy Colon cancer screen colonoscopy [employer] Work Phone: Start: 09-14-2029 Screening for malign ant neoplasm of colon [facility] [employer] Start: 08-17-2028 Screening for malign ant neoplasm of colon [facility] [place] [facility] Start: 06-26-2027 Diabetes screen Diabetes screen [facility] [place] [facility] Start: 06-28-2026 Annual Wellness Visi t (Medicare) Annual Wellness Visit (Medicare) [facility] [place] [facility] Start: 06-28-2026 End: 06-28-2026 Patient encounter procedure 06/28/2026 9:00 AM EDT Office Visit [facility] [address] [place] [address] Jarad Rey MD [address] [place] [address] awv [facility] Comment on above: awv Start: 06-26-2026 Depression Screen Depression Screen [facility] Start: 06-11-2026 Diabetes screen Diabetes screen [facility] Start: 05-01-2026 End: 05-01-2026 Patient encounter procedure 05/01/2026 10:30 AM EDT Office Visit [facility] [address] [place] [address] Kaylynn Payne MD [address] [place] [address] 2 yr fu [facility] Surgery Comment on above: 2 yr fu Start: 01-16-2026 End: 01-16-2026 Patient encounter procedure 01/16/2026 10:30 AM EDT Office Visit [facility] Pulmonology [address] [place] [address] George Hernandez MD [address] [place] [address] 9M FU [facility] Comment on above: 9M FU Start: 07-12-2025 End: 07-12-2025 Patient encounter procedure 07/12/2025 12:30 PM EST Office Visit [facility] [address] [place] [address] [address] [place] [address] Justin Espinoza MD [address] [place] [address] 6 month follow up [facility] Comment on above: 6 month follow up Start: 06-27-2025 Annual Wellness Visi t (Medicare) Annual Wellness Visit (Medicare) [facility] Start: 06-27-2025 End: 06-27-2025 Patient encounter procedure 06/27/2025 1:00 PM EDT Office Visit [facility] [address] [place] [id number] Jarad Rey MD [address] [place] [address] awv [facility] Comment on above: v Start: 06-26-2025 Lipid panel Lipids [facility] Start: 06-25-2025 Depression Screen Depression Screen [facility] Start: 05-12-2025 [facility] Start: 05-06-2025 Measuring intake and output [facility] Start: 05-06-2025 Patient discharge [facility] Start: 05-05-2025 Application of intermittent pneumatic compression device [facility] Start: 05-05-2025 Measuring intake and output [facility] Start: 05-05-2025 Incentive spirometry [facility] Start: 05-05-2025 Ambulation therapy management [facility] Start: 05-05-2025 Assessment of risk o f venous thromboembolism [facility] Start: 05-05-2025 Deep breathing and coughing exercises [facility] Start: 05-05-2025 Following clinical pathway protocol [facility] Start: 05-05-2025 Provision of activit y privileges [facility] Start: 05-05-2025 Taking patient vital signs [facility] Start: 05-05-2025 Vital signs measurements [facility] Start: 05-05-2025 End: 05-05-2025 [facility] Start: 05-05-2025 Admission procedure [facility] Start: 05-05-2025 Following clinical pathway protocol [facility] Start: 04-30-2025 COVID-19 Vaccine ( season) COVID-19 Vaccine ( season) [facility] Start: 04-30-2025 Influenza vaccination Influenza Vacc ine (#1) [facility] Start: 04-26-2025 End: 04-26-2025 Patient encounter procedure 04/26/2025 10:30 AM EDT Office Visit [facility] General [facility] [address] [place] [address] Kaylynn Payne MD [address] [place] [address] 1 yr GB [facility] General Surgery Comment on above: 1 yr [facility] Start: 04-25-2025 Ambulation without limitation [facility] Start: 04-25-2025 Medical regimen orde rs management [facility] Start: 04-25-2025 Medication education [facility] Start: 04-25-2025 [facility] Start: 04-25-2025 Taking patient vital signs [facility] Start: 04-25-2025 [facility] Start: 04-25-2025 Anes transurethral w/urethrocystoscopy nos ANESTH BLADDER SURGERY [facility] Start: 04-25-2025 Cysto w/insert urete ral stent CYSTOSCOPY AND TREATMENT [facility] Start: 04-25-2025 Plain X-ray abdomen Abdomen Single V iew [facility] Start: 04-25-2025 XR Abdomen Single view [facility] Start: 03-30-2025 Influenza vaccination Flu vaccine (# 1) [facility] Start: 10-07-2024 Prostate specific an tigen measurement PSA Prostate Cancer Screening [facility] Start: 09-20-2024 End: 09-20-2024 Patient encounter procedure 09/20/2024 10:45 AM EST Office Visit [facility] [address] [facility] [address] [place] [id number] Isabela Bazan MD [facility] [place] [address] [facility] Start: 09-13-2024 End: 09-13-2025 Basic metabolic 2000 panel - Serum or Plasma Basic Metabolic Panel Lab Routine Nocturia Expected: 09/13/2024 (Approximate), Expires: 09/13/2025 [facility] Work Phone: Comment on above: Expected: 09/13/2024 (Approximate), Expires: 09/13/2025 Start: 09-13-2024 End: 09-13-2025 Prostate specific Ag [Mass/volume] in Serum or Plasma Prostate Specific Antigen Lab Routine Nocturia Expected: 09/13/2024 (Approximate), Expires: 09/13/2025 [facility] Service Area Work Phone: Comment on above: Expected: 09/13/2024 (Approximate), Expires: 09/13/2025 Start: 09-13-2024 End: 09-13-2025 US Kidney - bilateral and Urinary bladder US renal complete Imaging Routine History of kidney stones Expected: 09/13/2024 (Approximate), Expires: 09/13/2025 [facility] Work Phone: Comment on above: Expected: 09/13/2024 (Approximate), Expires: 09/13/2025 Start: 07-30-2024 End: 02-22-2025 XR Abdomen Single view XR abdomen 1 view Imaging Routine History of kidney stones Expected: 07/30/2024, Expires: 02/22/2025 [facility] Area Work Phone: Comment on above: Expected: 07/30/2024 , Expires: 02/22/2025 Start: 07-05-2024 End: 07-05-2024 Patient encounter procedure 07/05/2024 10:00 AM EST Office Visit [facility] Pulmonology [address] [place] [address] George Hernandez MD [address] [facility] [address] [address] [place] [address] 9M F/U [facility] Comment on above: 9M F/U Start: 06-29-2024 End: 06-29-2024 Patient encounter procedure 06/29/2024 9:45 AM EDT Office Visit [facility] Card[facility] [address] [place] [address] Justin Espinoza MD [address] [place] [address] 6 month follow up [facility] Comment on above: 6 month follow up Start: 06-12-2024 Diabetes screen Diabetes screen [facility] Start: 06-12-2024 End: 06-12-2024 Patient encounter procedure 06/12/2024 10:15 AM EDT Office Visit [facility] [address] [place] [address] Isabela Bazan MD [address] [place] [address] [facility] Start: 06-11-2024 Lipid panel Lipids [facility] Start: 05-15-2024 End: 05-15-2024 Patient encounter procedure 05/15/2024 10:00 AM EDT Office Visit [facility] [address] [place] [address] Isabela Bazan MD [address] [place] [address] [facility] Start: 04-30-2024 COVID-19 Vaccine ( season) COVID-19 Vaccine ( season) [facility] Start: 04-30-2024 COVID-19 Vaccine ( season) COVID-19 Vaccine ( season) [facility] Start: 04-30-2024 Influenza vaccination [facility] Start: 03-30-2024 Influenza vaccination Flu vaccine (# 1) [facility] Start: 02-23-2024 End: 02-23-2024 Patient encounter procedure 02/23/2024 10:45 AM EDT Office Visit [facility] [address] [facility] [address] [place] [address] Isabela Bazan MD [address] [place] [address] [facility] Start: 12-16-2023 End: 12-16-2023 Patient encounter procedure 12/16/2023 3:30 PM EDT Office Visit [facility] [address] [place] [address] Isabela Bazan MD [facility] [place] [address] [facility] Start: 11-15-2023 End: 11-15-2023 Patient encounter procedure 11/15/2023 3:00 PM EDT Office Visit [facility] [address] [place] [address] Isabela Bazan MD [facility] [place] [address] [facility] Start: 11-10-2023 End: 11-10-2023 Telemedicine consultation with patient 11/10/2023 10:45 AM EDT Telemedicine [address] [place] [id number] Isabela Bazan MD [facility] [place] [address] [facility] Start: 11-08-2023 End: 11-15-2023 Bacteria identified in Urine by Culture Urine Culture Microbiology Routine Dysuria Expected: 11/08/2023 (Approximate), Expires: 11/15/2023 [facility] Service Area Work Phone: Comment on above: Expected: 11/08/2023 (Approximate), Expires: 11/15/2023 Start: 11-01-2023 End: 11-01-2023 Patient encounter procedure 11/01/2023 10:00 AM EST Procedure Visit [facility] [address] [facility] [address] [place] [address] [facility] Start: 10-07-2023 End: 10-07-2024 Prostate specific Ag [Mass/volume] in Serum or Plasma [facility] Service Area Work Phone: Comment on above: Expected: 10/07/2023 (Approximate), Expires: 10/07/2024 Start: 10-07-2023 End: 10-07-2024 XR Abdomen Single view [facility] Work Phone: Comment on above: Expected: 10/07/2023 (Approximate), Expires: 10/07/2024 Once for 1 Occurrenc es starting 10/07/2023 until 10/07/2023 Start: 06-10-2023 Diabetes screen Diabetes screen [email or web address] Phone: Start: 05-09-2023 [facility] [place] [place] Start: 04-30-2023 COVID-19 Vaccine () COVID-19 Vaccine () [facility] Start: 04-30-2023 Influenza vaccination Influenza Vacc ine (#1) [facility] Start: 04-02-2023 Depression Screen Depression Screen [facility] Start: 07-08-2022 End: 07-08-2022 Patient encounter procedure 07/08/2022 Office Visit Pulmonology George Hernandez MD [address] [place] [address] [employer] [place] [facility] Start: 06-30-2022 End: 06-30-2022 Patient encounter procedure 06/30/2022 Office Visit Cardiology Justin Espinoza MD [address] [place] [address] [employer] [facility] Start: 06-24-2022 Creatinine measurement Creatinine mo nitoring [employer] Phone: Start: 06-24-2022 Potassium monitoring Potassium monit oring [employer] Phone: Start: 06-15-2022 Annual Wellness Visi t (AWV) Annual Wellness Visit (AWV) [facility] Start: 06-15-2022 End: 06-15-2022 Patient encounter procedure [employer] [facility] Start: 06-12-2022 Lipid panel [facility] Start: 06-12-2022 Prostate specific an tigen measurement Prostate Specific Antigen (PSA) Screening or Monitoring [facility] Start: 06-11-2022 End: 06-11-2022 Patient encounter procedure 06/11/2022 Office Visit Cardiology Justin Espinoza MD [address] [facility] [address] [place] [address] [facility] Start: 04-30-2022 Influenza vaccination [facility] Start: 04-20-2022 End: 04-20-2022 Patient encounter procedure 04/20/2022 Appointment Pulmonary Function Testing [facility] Start: 03-30-2022 Influenza vaccination Flu vaccine (# 1) [facility] Start: 2021 Fall risk assessment Falls Risk Asse ssment [facility] Start: 2021 Pneumococcal 65+ yea rs Vaccine (1 - PCV) Pneumococcal 65+ years Vaccine (1 - PCV) [facility] Start: 2021 Pneumococcal Vaccine : 65+ Years (1 - PCV) Pneumococcal Vaccine: 65+ Years (1 - PCV) [facility] Start: 2021 Pneumococcal Vaccine : 65+ Years (1 of 1 - PCV) Pneumococcal Vaccine: 65+ Years (1 of 1 - PCV) [facility] Start: 2021 Pneumococcal Vaccine : Age 65+ (1 - PCV) Pneumococcal Vaccine: Age 65+ (1 - PCV) [facility] Start: 10-16-2021 End: 10-16-2021 Patient encounter procedure 10/16/2021 Office Visit Cardiology Justin Espinoza MD [address] [facility] [address] [place] [address] [phone] [facility] Start: 07-10-2021 End: 07-10-2021 Patient encounter procedure 07/10/2021 Appointment Radiology [facility] Start: 07-07-2021 End: 07-07-2021 Patient encounter procedure 07/07/2021 Office Visit Cardiology Justin Espinoza MD [address] [facility] [address] [place] [address] [phone] [facility] Start: 06-10-2021 Creatinine measurement Creatinine mo nitscot [facility] Phone: Start: 06-10-2021 Lipid panel Lipid screen [facility] [employer] Phone: Start: 06-10-2021 Potassium monitoring Potassium monit oring [employer] Phone: Start: 04-30-2021 Influenza vaccination M [facility] [employer] Work Phone: Start: 03-06-2021 End: 03-06-2021 Patient encounter procedure 03/06/2021 Office Visit Cardiology Justin Espinoza MD [address] [address] [phone] [employer] [facility] Start: 02-27-2021 End: 02-27-2021 Patient encounter procedure [facility] [employer] [place] [facility] Start: 05-15-2020 [facility] Start: 05-15-2020 Creatinine monitoring Creatinine mon itoring [employer] Phone: Start: 05-15-2020 Lipid panel Lipid screen [place] Start: 05-15-2020 Lipid screen Lipid screen [facility] Work Phone: Start: 05-15-2020 Potassium monitoring Potassium monit [facility] [employer] Phone: Start: 04-30-2020 Influenza vaccination Flu vaccine (# 1) [facility] [employer] [place] Start: 06-07-2019 End: 06-07-2019 Office Visit 06/07/2019 Office Visit Cardiology Brain Freedman MD [address] [place] [address] [phone] [facility] [employer] [facility] Start: 05-15-2019 End: 05-15-2019 Office Visit 05/15/2019 Office Visit Family Medicine Jarad Rey MD [address] [place] [address] [phone] [facility] Start: 05-09-2019 Creatinine monitoring Creatinine mon itoring [place] Start: 05-09-2019 Potassium monitoring Potassium monit oring [place] Start: 04-30-2019 Influenza vaccination Flu vaccine (# 1) [place] Start: 04-30-2017 Influenza vaccination SEQUENTI AL INFLUENZA VACCINE (#1) [facility] Work Phone: Start: 2016 Hepatitis B Vaccines (1 of 3 - Risk 3-dose series) Hepatitis B Vaccines (1 of 3 - Risk 3-dose series) [facility] Start: 2016 Respiratory Syncytia l Virus (RSV) or age 60 yrs+ (1 - 1-dose 60+ series) Respiratory Syncytial Virus (RSV) or age 60 yrs+ (1 - 1-dose 60+ series) [facility] Start: 2016 Respiratory Syncytia l Virus (RSV) or age 60 yrs+ (1 - Risk 60-74 years 1-dose series) Respiratory Syncytial Virus (RSV) or age 60 yrs+ (1 - Risk 60-74 years 1-dose series) [facility] Start: 2016 RSV High Risk: (Elde rly (60+) or Population) (1 - Risk 60-74 years 1-dose series) RSV High Risk: (Elderly (60+) or Population) (1 - Risk 60-74 years 1-dose series) [facility] Start: 2016 RSV patient s and/or patients aged 60+ years (1 - 1-dose 60+ series) RSV patients and/or patients aged 60+ years (1 - 1-dose 60+ series) [facility] Start: 2016 Zoster vaccine hzv l sangita for subcutaneous use ZOSTER VACCINE [facility] Work Phone: Start: 2006 Administration of he rpes zoster vaccine Zoster Vaccines (1 of 2) [facility] Start: 2006 Colon cancer screen colonoscopy Colon cancer screen colonoscopy [place] Start: 2006 Pneumococcal vaccination Pneum ococcal Vaccine (1 of 1 - PCV) [facility] Start: 2006 Shingles Vaccine (1 of 2) Bermeo gles Vaccine (1 of 2) [facility] Start: 2006 Zoster Vaccines (1 of 2) Zoste r Vaccines (1 of 2) [facility] Start: 2001 Screening for malign ant neoplasm of colon [facility] Start: 1978 DTaP/Tdap/Td Vaccine s (1 - Tdap) DTaP/Tdap/Td Vaccines (1 - Tdap) [facility] Start: 12-03-1975 DTaP/Tdap/Td vaccine (1 - Tdap) DTaP/Tdap/Td vaccine (1 - Tdap) [facility] Start: 12-03-1975 Hepatitis A Vaccines (1 of 2 - Risk 2-dose series) Hepatitis A Vaccines (1 of 2 - Risk 2-dose series) [facility] Start: 12-03-1975 Pneumococcal 50+ yea rs Vaccine (1 of 2 - PCV) Pneumococcal 50+ years Vaccine (1 of 2 - PCV) [facility] Start: 1974 Diabetes mellitus screening Diabetes Screening [facility] Start: 1974 Hepatitis C screening Hepatitis C Sc [facility] Start: 12-03-1971 HIV screening HIV Screening [facility] Start: 1968 COVID-19 Vaccine (1) COVID-19 Vaccin e (1) [facility] [employer] Phone: Start: 1968 Depression screening using PHQ-9 (Patient Health Questionnaire 9) score Depression Screening (PHQ-2/9) [facility] Start: 12-03-1967 DTaP/Tdap/Td vaccine (1 - Tdap) DTaP/Tdap/Td vaccine (1 - Tdap) [facility] [employer] Phone: Start: 1962 Pneumococcal 65+ yea rs Vaccine (1 - PCV) Pneumococcal 65+ years Vaccine (1 - PCV) [facility] Start: 1962 Pneumococcal 65+ yea rs Vaccine (1 of 2 - PCV) Pneumococcal 65+ years Vaccine (1 of 2 - PCV) [facility] Start: 12-03-1959 History and physical examination, annual for health maintenance Wellness Visit [facility] Start: 1957 MMR Vaccines (1 of 1 - Standard series) MMR Vaccines (1 of 1 - Standard series) [facility] Start: 06-03-1957 COVID-19 Vaccine (#1) COVID-19 Vacci ne (#1) [facility]OM ANNIE [facility] Start: 1956 Lipid panel Lipid Panel [facility] Start: 1956 Medicare Annual Well ness Visit Medicare Annual Wellness Visit (AWV) [facility] Start: 1956 Prostate specific an tigen measurement PSA Level [facility] Start: 1956 Screening for malign ant neoplasm of colon [facility] Start: 1956 Yearly Adult Physical Yearly Adult P hysical [facility] Start: 1956 HEPATITIS C SCREENING HEPATITIS C SC REENING [facility] Work Phone: Start: 1956 Screening colonoscopy COL[facility]OSCOPY [facility] Work Phone: Start: 1956 End: 1956 Tetanus vaccination [facility] End: 11-09-2023 Bacteria identified in Urine by Culture [facility] Work Phone: Comment on above: Once (Lab) for 1 Occ urrences starting 11/09/2023 until 11/09/2023 End: 03-25-2025 Bacteria identified in Urine by Culture [facility] Work Phone: Comment on above: Once (Lab) for 1 Occ urrences starting 03/25/2025 until 03/25/2025 End: 05-04-2025 Bacteria identified in Urine by Culture [facility] Work Phone: Comment on above: Once (Lab) for 1 Occ urrences starting 05/04/2025 until 05/04/2025 End: 11-09-2023 Extra Urine [facility] Extra Urine [facility] Lab Timed Once for 1 Occurrences starting 11/09/2023 until 11/09/2023 [facility] Work Phone: Comment on above: Once for 1 Occurrenc es starting 11/09/2023 until 11/09/2023 End: 03-25-2025 Extra Urine [facility] Extra Urine [facility] Lab Timed Once for 1 Occurrences starting 03/25/2025 until 03/25/2025 [facility] Work Phone: Comment on above: Once for 1 Occurrenc es starting 03/25/2025 until 03/25/2025 End: 05-04-2025 Extra Urine [employer] Extra Urine [facility] Lab Timed Once for 1 Occurrences starting 05/04/2025 until 05/04/2025 [facility] Work Phone: Comment on above: Once for 1 Occurrenc es starting 05/04/2025 until 05/04/2025 End: 06-26-2024 Hemoglobin A1c/Hemoglobin.total in Blood [facility] Comment on above: 1 Occurrences starti ng 06/26/2024 until 06/26/2024 End: 06-27-2025 Hemoglobin A1c/Hemoglobin.total in Blood [facility] Comment on above: 1 Occurrences starti ng 06/27/2025 until 06/27/2025 End: 05-08-2019 Holter monitor 24 hour Holter monitor 24 hour Cardiac Services Routine PVC (premature ventricular contraction) 1 Occurrences starting 05/08/2019 until 05/08/2019 [facility] Comment on above: 1 Occurrences starti ng 05/08/2019 until 05/08/2019 Initiate Oxygen Ther apy Protocol Initiate Oxygen Therapy Protocol Respiratory Care Routine Daily until discontinued starting 09/14/2019 [employer] Work Phone: Comment on above: Daily until disconti nued starting 09/14/2019 Patient Education ED Farrah perla, Care ED Urinary Retention, Male [facility] Work Phone: Phase I & II - meter ed glucose Phase I & II - metered glucose Point of Care Testing Routine As Needed until discontinued starting 09/14/2019 [employer] Work Phone: Comment on above: As Needed until disc ontinued starting 09/14/2019 End: 11-09-2023 Urinalysis complete W Reflex Culture panel - Urine [facility] Service Area Work Phone: Comment on above: STAT (Lab) for 1 Occ urrences starting 11/09/2023 until 11/09/2023 End: 03-25-2025 Urinalysis complete W Reflex Culture panel - Urine [facility] Service Area Work Phone: Comment on above: Once (Lab) for 1 Occ urrences starting 03/25/2025 until 03/25/2025 End: 05-04-2025 Urinalysis complete W Reflex Culture panel - Urine [facility] Service Area Work Phone: Comment on above: STAT (Lab) for 1 Occ urrences starting 05/04/2025 until 05/04/2025 Urine culture [facility] End: 09-13-2024 XR Abdomen Single view [facility] Service Area Work Phone: Comment on above: Once for 1 Occurrenc es starting 09/13/2024 until 09/13/2024 End: 02-17-2021 XR HAND RIGHT (MIN 3 VIEWS) XR HAND RIGHT (MIN 3 VIEWS) Imaging STAT Once for 1 Occurrences starting 02/17/2021 until 02/17/2021 [employer] Work Phone: Comment on above: Once for 1 Occurrenc es starting 02/17/2021 until 02/17/2021 XR HAND RIGHT (MIN 3 VIEWS) XR HAND RIGHT (MIN 3 VIEWS) Imaging STAT 02/17/2021 9:12 PM EDT [employer] Work Phone: Payers Date Payer Category Payer Self-pay 2021 [employer] [facility] [id number] 2021 Medicare [id number]. [id number] 2021 Medicare [id number]. [id number] 2021 Unknown [id number] [id number]. [id number] 2017 Unknown [employer] JHONY - EXCHANGE xxxxxxxxxxxx 2017-Present [phone] [address] [place] [address] xxxxxxxxxxxx [id number]. [id number] 2017 Unknown 2015 Unknown [id number] 2.16.840.1.006169.3.249.13 1956 Unknown [id number] 2.16.840.1.999949.3.579.2. 903 1956 Unknown [id number] 2.16.840.1.761470.3.579.2. 182 1956 Unknown [id number] 2.16.840.1.952514.3.579.2. 1245 1956 Unknown [id number] 2.16.840.1.727303.3.579.2. 124 1956 Unknown [id number] 2.16.840.1.808525.3.579.2. 1244 1956 Unknown [id number] 2.16.840.1.697491.3.579.2. 1243 1956 Unknown [id number] 2.16.840.1.970183.3.579.2. 1244 1956 Unknown [id number] 2.16.840.1.964537.3.579.2. 1244 1956 Unknown [id number] 2.16.840.1.943218.3.579.2. 1243 1956 Unknown [id number] 2.16.840.1.773097.3.579.2. 1243 1956 Unknown [id number] 2.16.840.1.801881.3.579.2. 1243 1956 Unknown [id number] 2.16.840.1.467654.3.579.2. 1243 1956 Unknown [id number] 2.16.840.1.308477.3.579.2. 1242 1956 Unknown [id number] 2.16.840.1.261230.3.579.2. 1242 1956 Unknown [id number] 2.16.840.1.534937.3.579.2. 1242 1956 Unknown [id number] 2.16.840.1.674672.3.579.2. 185 1956 Unknown [id number] 2.16.840.1.898473.3.579.2. 185 Unknown [id number] 2.16.840.1.864812.3.579.2. 462 Unknown [id number] 2.16.840.1.423070.3.579.2. 462 Unknown [id number] 2.16.840.1.560474.3.579.2. 462 Unknown [id number] 2.16.840.1.380644.3.579.2. 462 Social History Date Type Detail Facility Start: 05-19-2017 End: 04-02-2022 Tobacco smoking status [facility] Never smoker [facility] Start: 1955 Sex Assigned At Not on file [employer] Work Phone: Start: 10-12-2018 End: 06-26-2025 Alcohol intake No [facility] [employer] Start: 06-10-2020 End: 04-02-2022 Tobacco use and exposure Never used [email or web address] Start: 06-10-2020 End: 06-15-2022 Alcohol intake Current non-drinker of alcohol (finding) [employer] Work Phone: Start: 09-27-2023 End: 09-13-2024 Exposure to SARS-CoV-2 (event) Not sure [facility] Start: 06-12-2021 End: 06-15-2022 History SDOH Financial 5 [employer] Work Phone: Start: 06-12-2021 End: 06-15-2022 History SDOH Food Worry 1 [employer] Work Phone: Tobacco smoking stat [facility] Tobacco smoking consumption unknown [facility] Start: 10-07-2023 End: 06-27-2025 Alcohol intake Lifetime non-drinker (finding) [facility] Work Phone: Start: 10-07-2023 End: 06-26-2025 History of Social function [employer] How often to you hav e a drink containing alcohol? Never [employer] Start: 07-24-2022 Average Number of Drinks Not on file [employer] (I/We) worried paola er (my/our) food would run out before (I/we) got money to buy more. Never true [employer] At any time in the p ast 12 months, were you homeless or living in fdc [including now]? No [employer] Start: 1955 [address] Male [facility] Start: 03-25-2025 Gender identity Identifies as male gender (finding) [facility] Work Phone: Start: 03-25-2025 Sexual orientation Heterosexual (finding) [facility] Work Phone: Start: 10-09-2012 Sex Male (finding) [facility] Procedure Code Equipment Code Equipment Origin al Text Equipment Identifier Dates Lithotripsy, ESWL STENT,URETERAL PIGTAIL 6FRx26 FDA Start: 04-25-2025 Lithotripsy, ESWL STENT,URETERAL PIGTAIL 6FRx26 FDA Start: 04-25-2025 Cystoscopy, with retrograde pyelogram, ureteroscopy, laser procedure, and stent inser STENT,URETERAL PIGTAIL 6FRx26 FDA Start: 05-05-2025 Goals Date Patient Goal Desired Activity /State Functional Status Date Assessment Result Facility 05-06-2025 Functional status Ambulates;Up ad vikas [facility] Work Phone: 05-04-2025 Jeffers - suicide s everity rating scale screener - recent [C-SSRS] [facility] Work Phone: 04-25-2025 Functional status Ambulates [facility] Work Phone: 03-25-2025 Jeffers - suicide s everity rating scale screener - recent [C-SSRS] [facility] Work Phone: Mental Status Date Assessment Result Facility 05-06-2025 Cognitive function Level Of Cons ciousness Awake;Alert;Appropriate [facility] Work Phone: 05-06-2025 Cognitive function Voice/Name [facility] Work Phone: 04-25-2025 Cognitive function Level Of Consciousness Sedated [facility] Work Phone: 04-25-2025 Cognitive function Voice/Name [facility] Work Phone: Clinical Notes 06-03-2015 to 05-12-2025 Note Date & Type Note Facility 05-12-2025 Discharge summary [facility] 05-06-2025 Hospital Discharg e instructions Additional Instructions Date of Discharge: 05/06/25 [facility] Work Phone: 05-06-2025 Discharge summary Note Date/Time May 06, 2025 8:59am [facility] Medical Records Department [address] [place] [address] Discharge Summary 05/06/25 0856 MR#: [id number] Acct: [id number] Name: RAMON COSTA Rep #:[id number] : 1955 69 From: Harjit Lam MD PCP: Jarad Rey MD Status:ADM PORSHA Location: [facility] [id number] Providers Date of Admission: 05/05/25 Date of [...] (Auto) 72.5 H, Lymph % (Auto) 16.4L, Swisher % (Auto) 8.9, Eos % (Auto) 1.2, [...] Harjit Lam MD; Jarad Rey MD~ Signed [facility] Work Phone: 1(193) 539-494209-07-2025 Discharge summary [facility] Medical Records Department [address] [place] [address] Discharge Summary 05/06/25 0856 MR#: [id number] Acct: [id number] Name: RAMON COSTA Rep #:[id number] : 1955 69 From: Harjit Lam MD PCP: Jarad Rey MD Status:ADM PORSHA [facility] Prov[facility] Date of Admission: 05/05/25 Date of [...] (Auto) 72.5 H, Lymph % (Auto) 16.4L, Swisher % (Auto) 8.9, Eos % (Auto) 1.2, [...] be placed): Home, Self Care [facility]/06/25 [facility] applicable): CC: Dr. Harjit Lam MD; Jarad Rey MD~ Signed [facility]09-07-2025 [facility] Medical Records Department [address] [place] [address] Discharge Summary 05/06/25 0856 MR#: [id number] Acct: [id number] Name: RAMON COSTA Rep #: [id number] : 1955 69 From: Harjit Lam MD PCP: Jarad Rey MD Status:ADM PORSHA Location: [place] [address] Providers Date of Admission: 05/05/25 Date of [...] 72.5 H, Lymph % (Auto) 16.4 L, Swisher % (Auto) 8.9, Eos % (Auto) 1.2, [...] Dr. Harjit Lam MD; Jarad Rey MD [facility]09-06-2025 Consult note Author Shankar Torres [facility] Note Date/Time May 05, 2025 10:15am [facility] Medical Records Department [address] [place] [address] Anesthesia Postop Eval II 05/05/25 1014 MR#: [id number] Acct: [id number] Name: RAMON COSTA Rep #:[id number] : 1955 69 From: Shankar Torres MD PCP: Jarad Rey MD Status:ADM PORSHA Y Race: C Location: [address] Anesthesia Postop Eval I Sum Postop Eval [...] MD Cosigner Signature: Date CC: ~ Signed [facility] Work Phone: 1(206) 366-381709-06-2025 Consult note Author Shankar lindsay [facility] Note Date/Time May 05, 2025 10:14am [facility] Medical Records Department [address] [place] [address] Anesthesia Postop Eval I 05/05/25 1004 MR#: [id number] Acct: [id number] Name: RAMON COSTA Rep #:[id number] : 1955 69 From: Shankar Torres MD PCP: Jarad Rey MD Status:ADM PORSHA Y Race: C Location: [place] [address] 1 Anesthesia: Postop Eval I Current Vital Signs [...] MD Cosigner Signature: Date CC: ~ Signed [facility] Work Phone: 1(792) 128-610109-06-2025 Evaluation note* Diagnosis Onset Date Resolution Status Admit Date Calculus of kidney acute Septem 2024 9:48am [facility] Work Phone: 1(289) 691-915009-06-2025 Consult note [facility] Medical Records Department [address] [place] [address] Anesthesia Postop Eval II 05/05/25 1014 MR#: [id number] Acct: [id number] Name: RAMON COSTA Rep #:[id number] : 1955 69 From: Shankar Torres MD PCP: Jarad Rey MD Status:ADM PORSHA Y Race: C Location: [place] [address] Anesthesia Postop Eval I Sum Postop Eval [...] No 05/05/25 1015 > Date _ Shankar Copeigner Signature: CC: ~ Signed [facility]09-06-2025 Consult note [facility] Medical Records Department [address] [facility] [place] [address] Anesthesia Postop Eval I 05/05/25 1004 MR#: [id number] Acct: [id number] Name: RAMON COSTA Rep #:[id number] : 1955 69 From: Shankar Torres MD PCP: Jarad Rey MD Status:ADM PORSHA Y Race: C [facility] -1 Anesthesia: Postop Eval I Current Vital Signs [...] Yes 05/05/25 1014 > Date _ Shankar Lujna Signature: Date CC: ~ Signed [facility]09-06-2025 Procedure note [facility] Medical Records Department [address] [place] [address] Operative Report 05/05/25 0943 MR#: [id number] Acct: [id number] Name: RAMON COSTA Rep #:[id number] : 1955 69 From: Harjit Lam MD PCP: Jarad Rey MD Status:ADM PORSHA Location: [place] [address] Operative Report (Standard) Operative Information Date of Procedure: 05/05/25 Pre-Operative Diagnosis: Right ureteral calculi status post ESWL with multiple fragments in the ureter Post-Operative Diagnosis: The same Surgery/Procedure Performed: Cystoscopy right ureteroscopy laser lithotripsy of stones in the ureter and right stent placement inside trucker: No Type of Anesthesia: General RN Documented Start/Stop Times: Operation Date: 05/05/25 07:40 Case Time Anesthesia Start 05/05/25 07:44 Into Room 05/05/25 07:44 Procedure Start 05/05/25 08:04 Procedure Start Time: 08:04 Procedure Stop Time: 09:44 Select all DRAINS/GRAFTS/IMPLANTS that apply: Drains Drain details: 6 [place]orese by 26 cm stent Estimated Blood Loss: [...] went into the bladder with a 21 [place]orese rigid cystourethroscope put a wire upthe right [...] Harjit Lam MD; Jarad Rey MD~ Signed [facility]09-06-2025 History and physical note Author Harjit Brigitte [facility] Note Date/Time May 05, 2025 7:37am [facility] Medical Records Department [address] [place] [address] History & Physical Exam 05/05/25 0736 MR#: [id number] Acct: [id number] Name: RAMON COSTA Rep #:[id number] : 1955 69 From: Harjit Lam MD PCP: Jarad Rey MD Status:ADM PORSHA Location: [facility] [id number] HPI - General General Date of Admission: [...] laser lithotripsy of stone fragments stent placement [facility] Medical History Wears glasses Cancer Prostate disease [...] 73.1 H, Lymph % (Auto) 17.1 L, Swisher % (Auto) 8.5, Eos % (Auto) 0.5, [...] Harjit Lam MD; Jarad Rey MD~ Signed [facility] Work Phone: 1(901) 778-682109-06-2025 Consult note Author Shankar Torres [facility] Note Date/Time May 05, 2025 7:25am [facility] Medical Records Department [address] [place] [address] Pre-Anesthesia Evaluation 05/05/25 0724 MR#: [id number] Acct: [id number] Name: RAMON COSTA Rep #:[id number] : 1955 69 From: Shankar Torres MD PCP: Jarad Rey MD Status:ADM PORSHA Y Race: C Location: [place] [address] -1 ASA Classification* ASA Classification ASA Classification: 3 [...] Laser Stent Anesthesia History 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 History - 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: Anesthesia History - 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 Hx Hospitalization No 04/13/25 13:21 Any Problems [...] take am of surgery PONV PONV - 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: PONV - 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 Female HX of Motion Sickness HX of N/V After Surgery Non-Smoker Duration of Surgery greater than 60 minutes Number of Risk Factors PONV Score Height & Weight Height & Weight: Anesthesia: Height & Weight Height 5 ft 9 in 05/05/25 04:28 Weight: 110.6 kg 05/05/25 04:28 Body Mass Index (BMI) 36.0 05/05/25 04:28 Respiratory Assessment Respiratory Assessment - 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: Respiratory Tract Infection Hx - 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 Hx Respiratory Tract Infection No 05/05/25 04:37 STOP Sleep Apnea STOP Sleep Apnea - 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: STOP Sleep Apnea - 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 Hx Hypertension No 05/05/25 04:33 Hx Sleep [...] Tobacco Use History Tobacco Use History - 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: Tobacco Use History - 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 Tobacco Use Smoking Status Never smoker 05/05/25 04:33 Hx Tobacco Use No 05/05/25 04:33 Years Smoking Packs Smoked per Day Smoking Cessation Date was within the last 15 years Hx Smoking Cessation Date Hx Smoking Cessation Counseling Hematologic Medial History Hematologic Hx - 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: 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 Hx of Blood Transfusion No 05/05/25 04:33 [...] confused, unrespo /Reproduction History /Reproductive History - 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: /Reproductive Hx- 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 Hx Now No 05/05/25 04:37 Gestational Age [...] MD Cosigner Signature: Date CC: ~ Signed [facility] Work Phone: 1(694) 231-745109-06-2025 History and physical note [facility] Medical Records Department [address] [place] [address] History & Physical Exam 05/05/25735 MR#: [id number] Acct: [id number] Name: RAMON COSTA Rep #:[id number] : 1955 69 From: Harjit Lam MD PCP: Jarad Rey MD Status:ADM PORSHA Location: [facility] [id number] [facility] - General General Date of Admission: 05/05/25 [...] laser lithotripsy of stone fragments stent placement [facility] Medical History Wears glasses Cancer Prostate disease [...] tablet 1 mg PO QHS 04/13/25 5 22:00 History oxycodone 5 mg tablet 5 [...] 73.1 H, Lymph % (Auto) 17.1 L, Swisher % (Auto) 8.5, Eos % (Auto) 0.5, [...] stone to place a stent 05/05/25 0737 Cosigner Signature (if applicable): CC: Dr. Harjit Lam MD; Jarad Rey MD~ Signed [facility]09-06-2025 [facility] Medical Records Department [address] [place] [address] History Physical Exam 05/05/25 0736 MR#: [id number] Acct: [id number] Name: RAMON COSTA Rep #: [id number] : 1955 69 From: Harjit Lam MD PCP: Jarad Rey MD Status:ADM PORSHA [facility] - General General Date of Admission: 05/05/25 [...] laser lithotripsy of stone fragments stent placement [facility] Medical History Wears glasses Cancer Prostate disease [...] (Flomax) 0.4 mg PO DAILY #14 caps 04/25/2 5 05/04/25 10:00 Rx Allergy/AdvReac Type Severity [...] Micro Data 05/05/25 05:5 (more content not included)...[facility]09-06-2025 Consult note [facility] Medical Records Department [address] [place] [address] Pre-Anesthesia Evaluation 05/05/25723 MR#: [id number] Acct: [id number] Name: RAMON COSTA Rep #:[id number] : 1955 69 From: Shankar Torres MD PCP: Jarad Rey MD Status:ADM PORSHA Y Race: C Location: [place] MS319 -1 ASA Classification* ASA Classification ASA Classification: 3 [...] Laser Stent Anesthesia History Anesthesia History - 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: Anesthesia History - 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 Hx Hospitalization No 04/13/25 13:21 Any Problems [...] take am of surgery PONV PONV - 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: PONV - 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 Female HX of Motion Sickness HX of N/V After Surgery Non-Smoker Duration of Surgery greater than 60 minutes Number of Risk Factors PONV Score Height & Weight Height & Weight: Anesthesia: Height & Weight Height 5 ft 9 in 05/05/25 04:28 Weight: 110.6 kg 05/05/25 04:28 Body Mass Index (BMI) 36.0 05/05/25 04:28 Respiratory Assessment Respiratory Assessment - 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: Respiratory Tract Infection Hx - 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 Hx Respiratory Tract Infection No 05/05/25 04:37 STOP Sleep Apnea STOP Sleep Apnea - 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: STOP Sleep Apnea - 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 Hx Hypertension No 05/05/25 04:33 Hx Sleep [...] Tobacco Use History Tobacco Use History - 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: Tobacco Use History - 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 Tobacco Use Smoking Status Never smoker 05/05/25 04:33 Hx Tobacco Use No 05/05/25 04:33 Years Smoking Packs Smoked per Day Smoking Cessation Date was within the last 15 years Hx Smoking Cessation Date Hx Smoking Cessation Counseling Hematologic Medial History Hematologic Hx - 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: 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 05/05/2525 > Date _ Shankar Torres MD Cosigner Signature: Date CC: ~ Signed [facility]09-06-2025 Physician Emergency department Note* Gabriel Soto, DO [...] urologistat Krista. Patient has been accepted to [facility] by Dr. Lam. He will be given [...] Color, Urine Dark-Yellow Appearance, Urine Clear Specific [place], Urine 1.015 pH, Urine 6.5 Protein, Urine [...] Abnormality Status --------- ------ Urinalysis with Reflex C...[[id number]] Abnormal Final result Extra Urine Johnson Tube[[id number]] Please view results for these tests on [...] Andrew Sosa 05/04/2025 11:53 PM Dictation workstation: [id number] Medical Decision Making Transfer to [facility] Final diagnoses: [N20.1] Ureteral calculus Procedure Procedures DO Gabriel Mendez DO 05/05/25153 [facility] Work Phone: 1(322) 650-167609-06-2025 Emergency department Note* Gabriel Soto DO - 05/05/2025 12:03 AM EDT Emergency Medicine Transition of Care Note. I received Ramon Costa in signout from Dr. Love. Please see the previous ED provider note for all HPI, PE and MDM up to the time of signout at 1785. This is in addition to the primary [...] Color, Urine Dark-Yellow Appearance, Urine Clear Specific [place], Urine 1.015 pH, Urine 6.5 Protein, Urine [...] Abnormality Status --------- ------ Urinalysis with Reflex C...[[id number]] Abnormal Final result Extra Urine Johnson Tube[[id number]] Please view results for these tests on [...] Andrew Sosa 05/04/2025 11:53 PM Dictation workstation: [id number] Medical Decision Making Transfer to [facility] Final diagnoses: [N20.1] Ureteral calculus Procedure Procedures DO Gabriel Mendez DO 05/05/25 0154 documented in this [facility] Work Phone: 1(240) 498-875308-27-2025 Discharge summary Author Harjit Lam [facility] Note Date/Time April 25, 2025 3: 47pm [facility] Medical Records Department [address] [place] [address] Instructions for Home/Discharge Instructions 04/25/25 1547 MR#: [id number] Acct: [id number] Name: RAMON COSTA Rep #:[id number] : [...] Up With: Harjit Lam MD When: Call [phone] for an appointment Test Results: Test results from this visit will be discussed in further detail at your follow- up appointment, if applicable. Discharge Plan Admission Primary Reason for Your Visit: ESWL Attending Provider: Harjit Lam Primary Care Provider: Jarad Rey Instructions Print Language: Bruneian Discharge Orders/Prescriptions Prescriptions: New ciprofloxacin HCl [Cipro] [...] an KUB prior to appt. with me. 04/25/257<Electronically signed by Harjit Lam MD>Harjit Lam MD cc: Jarad Rey MD ~* Signed [facility] Work Phone: 1(229) [phone] Consult note [facility] Medical Records Department [address] [place] [address] Anesthesia Postop Eval I 04/25/251646 MR#: [id number] Acct: [id number] Name: RAMON COSTA Rep #:[id number] : 1955 69 From: Gonzalo Saucedo 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 MACHINE OPERATOR PCP: Jarad Rey MD Status:REG SDC Y Race: C Location: [place] [address] Anesthesia: Postop Eval I Current Vital Signs [...] Eval 1 completed: Yes 04/25/25 1648 y 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 MACHINE OPERATOR> Date _ Gonzalo Saucedo NEGRITO Lujan Signature: Date CC: ~ Signed [facility]08-27-2025 Procedure note [facility] Medical Records Department [address] [place] [address] Operative Report 04/25/25 1620 MR#: [id number] Acct: [id number] Name: RAMON COSTA Rep #:[id number] : 1955 69 From: Harjit Lam MD PCP: Jarad Rey MD Status:[facility] Location: [place] [address] Operative Report (Standard) Operative Information Date of Procedure: 04/25/25 Pre-Operative Diagnosis: Right kidney stones Post-Operative Diagnosis: same Surgery/Procedure Performed: Cystoscopy right stent placement and right ESWL inside 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 Using a 21 [place]se rigid cystourethroscope the entire length of the urethra was normal then went into the bladder. Identifiedthe trigone the left and right ureteral orifice. I then cannulated the right ureteral orifice and advanced a wire up into the kidney. I then backloaded a 5 [place]orese open ended catheter over the wire and injected contrast todelineate the anatomy. After the retrograde was performed I then used fluoroscopic images and guidance to advanced a wire up into the kidney and over the 0.038 glidewire I advanced a 6 [place]orese by 26 cm double pigtail stent. I [...] SCD's VTE Pharm Prophylaxis ordered?: No 04/25/25 5477 Cosigner Signature (if applicable): CC: Dr. Harjit Lam MD; Jarad Rey MD~ Signed [facility]08-27-2025 Discharge summary [facility] Medical Records Department [address] [place] [address] Instructions for Home/Discharge Instructions 04/25/25 1547 MR#: [id number] Acct: [id number] Name: RAMON COSTA Rep #:[id number] : [...] Up With: Harjit Lam MD When: Call [phone] for an appointment Test Results: Test results from this visit will be discussed in further detail at your follow- up appointment, if applicable. Discharge Plan Admission Primary Reason for Your Visit: ESWL Attending Provider: Harjit Lam Primary Care Provider: Jarad Rey Instructions Print Language: Bruneian Discharge Orders/Prescriptions Prescriptions: New ciprofloxacin HCl [Cipro] [...] KUB prior to appt. with me. 04/25/25 1547Harjit Lam MD cc: Jarad Rey MD ~* Signed [facility]08-27-2025 Consult note Author Delonte Israel [facility] Note Date/Time April 25, 2025 12 :41pm [facility] Medical Records Department [address] [place] [address] Pre-Anesthesia Evaluation 04/25/25 1240 MR#: [id number] Acct: [id number] Name: RAMON COSTA Rep #:[id number] : 1955 69 From: Delonte Israel MD PCP: Jarad Rey MD Status:REG [facility] Y Race: C Location: [place] [address]- ASA Classification* ASA Classification ASA Classification: 3 [...] INSERTION STENT Anesthesia History Anesthesia History - 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: Anesthesia History - 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 Hx Hospitalization No 04/13/25 13:21 Any Problems [...] take am of surgery PONV PONV - 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: PONV - 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 Female No 04/13/25 13:21 HX of Motion [...] 04/25/25 12:03 Respiratory Assessment Respiratory Assessment - 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: Respiratory Tract Infection Hx - 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 Hx Respiratory Tract Infection No 04/13/25 13:21 STOP Sleep Apnea STOP Sleep Apnea - 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: STOP Sleep Apnea - 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 Hx Hypertension Yes: CONTROLLED WITH MED 04/13/25 [...] Tobacco Use History Tobacco Use History - 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: Tobacco Use History - 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 Tobacco Use Smoking Status Never smoker 04/13/25 13:21 Hx Tobacco Use No 04/13/25 13:21 Years Smoking Packs Smoked per Day Smoking Cessation Date was within the last 15 years Hx Smoking Cessation Date Hx Smoking Cessation Counseling Hematologic Medial History Hematologic Hx - 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: 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 Hx of Blood Transfusion No 04/13/25 13:21 [...] confused, unrespo /Reproduction History /Reproductive History - 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: /Reproductive Hx- 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 Hx Now No 04/13/25 13:21 Gestational Age [...] 12:12 IV 15 mls/hr .Q48H RAYA Administration [facility] Medical History (Updated 04/13/25 @ 13:33 by [...] Delonte Hill> Date _ Delonte Israel MD Cosigner Signature: Date CC: ~ Signed [facility] Work Phone: 1(460) 112-535708-27-2025 Consult note [facility] Medical Records Department [address] [place] [address] Pre-Anesthesia Evaluation 04/25/25 1240 MR#: [id number] Acct: [id number] Name: RAMON COSTA Rep #:[id number] : 1955 69 From: Delonte Israel MD PCP: Jarad Rey MD Status:REG [facility] Y Race: C Location: [place] [address] ASA Classification* ASA Classification ASA Classification: 3 [...] INSERTION STENT Anesthesia History Anesthesia History - 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: Anesthesia History - 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 Hx Hospitalization No 04/13/25 13:21 Any Problems [...] take am of surgery PONV PONV - 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: PONV - 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 Female No 04/13/25 13:21 HX of Motion [...] 04/25/25 12:03 Respiratory Assessment Respiratory Assessment - 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: Respiratory Tract Infection Hx - 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 Hx Respiratory Tract Infection No 04/13/25 13:21 STOP Sleep Apnea STOP Sleep Apnea - 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: STOP Sleep Apnea - 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 Hx Hypertension Yes: CONTROLLED WITH MED 04/13/25 [...] Tobacco Use History Tobacco Use History - 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: Tobacco Use History - 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 Tobacco Use Smoking Status Never smoker 04/13/25 13:21 Hx Tobacco Use No 04/13/25 13:21 Years Smoking Packs Smoked per Day Smoking Cessation Date was within the last 15 years Hx Smoking Cessation Date Hx Smoking Cessation Counseling Hematologic Medial History Hematologic Hx - 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: 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 Hx of Blood Transfusion No 04/13/25 13:21 [...] confused, unrespo /Reproduction History /Reproductive History - 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: /Reproductive Hx- 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 Hx Now No 04/13/25 13:21 Gestational Age [...] Surgical History (Updated 04/13/25 @ 13:33 by iVdya Maloney) History of cardiac catheterization History of esophagogastroduodenoscopy (EGD) Hx of colonoscopy History of coronary artery stent placement Social History Smoking Status: Never smoker Review of Systems (Anesthesia) ROS Narrative System reviewed and no additional complaints, except as documented. 04/25/25 1241 D> Date _ Delonte Copeigndamaso Signature: Date CC: ~ Signed [facility]08-14-2025 Radiology Diagnostic study note [facility] Imaging Services [address] [place], [place] [address] Abdomen Single View MR#: [id number] Acct: [id number] Name: RAMON COSTA Rep #: [id number] : 1955 M 69 From: La Guerrero MD PCP: Jarad Rey MD Status: REG CLI Study:Abdomen Single View Date of Exam: 04/10/25 Exam# [id number] Ordering Dr: Melba Barr PROCEDURE: ABDOMEN SINGLE [...] Bony structures show degenerative change Reading Location: [id number] CC: Jarad Rey MD; Melba Barr ~ Frame Table Operator Helper: Signed [facility]07-27-2025 Physician Emergency department Note* Zak Alvarez MD [...] Light-Brown (*) Appearance, Urine Turbid (*) Specific Knifley, Urine 1.012 pH, Urine 6.5 Protein, Urine [...] Abnormality Status --------- ------ Urinalysis with Reflex C...[[id number]] Abnormal Final result Extra Urine Johnson Tube[[id number]] Please view results for these tests on [...] Maykel Ruano 03/25/2025 10:47 PM Dictation workstation: [id number] Procedures Medical Decision Making 69-year-old male history [...] UTI, pyelonephritis, ureterolithiasis, prostatitis Diagnoses as of 03/25/254 Hemorrhagic cystitis Zak Alvarez MD 03/25/252333 [facility] Work Phone: [phone]) 604-515007-27-2025 Emergency department Note* Zak Alvarez MD - [...] Light-Brown (*) Appearance, Urine Turbid (*) Specific Knifley, Urine 1.012 pH, Urine 6.5 Protein, Urine [...] Abnormality Status --------- ------ Urinalysis with Reflex C...[[id number]] Abnormal Final result Extra Urine Johnson Tube[[id number]] Please view results for these tests on [...] Maykel Ruano 03/25/2025 10:47 PM Dictation workstation: [id number] Procedures Medical Decision Making 69-year-old male history [...] 03/25/252333 Hemorrhagic cystitis Zak Alvarez MD 03/25/252333 documented in this [facility] Work Phone: [phone] History of Present illness Narrative* Isabela Bazan [...] and BMP and PSA documented in this [facility] Work Phone: [phone]) 338-666306-26-2024 History of Present illness Narrative* Isabela Bazan [...] 6 months with KUB documented in this [facility] Work Phone: 1([phone]) 486-588304-18-2024 History of Present illness Narrative* Isabela Baazn MD - 12/16/2023 3:30 PM EDT Subjective [...] 2 months with KUB documented in this [facility] Work Phone: [phone]) 495-667003-18-2024 History of Present illness Narrative* Isabela Bazan [...] keep PVR log [facility]: [phone] History of Present illness Narrative* Isabela Bazan [...] and chills also last week. Was in [facility] ER last night and had a yan [...] intake. F/U 1 week documented in this [facility] Work Phone: [phone]) 817-876403-12-2024 Emergency department Note* Karen ЕЛЕНА Fischer - 11/09/2023 6:26 PM EDT Patient is [...] Urine Yellow Appearance, Urine Hazy (*) Specific Knifley, Urine 1.015 pH, Urine 6.0 Protein, Urine [...] Abnormality Status --------- ------ Urinalysis with Reflex C...[[id number]] Abnormal Final result Extra Urine Johnson Tube[[id number]] Please view results for these tests on [...] times daily. First dose given in [facility] along with Pyridium. Patient is also [...] Karen Fischer PA-C 11/09/232024 documented in this [facility] Work Phone: [phone] Physician Emergency department Note* Karen Fischer PA-C [...] Urine Yellow Appearance, Urine Hazy (*) Specific Knifley, Urine 1.015 pH, Urine 6.0 Protein, Urine [...] Abnormality Status --------- ------ Urinalysis with Reflex C...[[id number]] Abnormal Final result Extra Urine Johnson Tube[[id number]] Please view results for these tests on [...] times daily. First dose given [facility] along with Pyridium. Patient is also [...] site unspecified Karen Fischer PA-C 11/09/232024 [facility] Work Phone: [phone]) 707-127303-12-2024 Reason for referral (narrative)* Consultation (Routine) - Authorized Specialty Diagnoses / Procedures Referred By Roxanne pearson Referred To Contact Urology Karen Fischer PA-C [address] [place] [address] Referral ID Status Reason Start Date Expiration Date Visits Requested Visits Authorized [id number] Authorized Specialty Services Required 11/09/2023 11/08/2024 1 1 [facility] Work Phone: [phone]) 826-643603-11-2024 History of Present illness Narrative* Isabela Bazan [...] PVR check Virtual [facility]: [phone] History of Present illness Narrative* Yaneth Funez MA - 11/01/2023 10:00 AM EST Patient ID: Rmaon Costa is a 67 y.o. male. Procedures [...] MONTHS WITH KUB [facility]: [phone] History of Present illness Narrative* Isabela Bazan [...] KUB and Cysto [facility]: [phone] History of Present illness Narrative* Initial Fall [...] patient is not using an assistive device. [facility] Work Phone: [phone]) 374-542107-01-2021 History of Present illness Narrative* Diamond Shah RN - 02/27/2021 9:59 AM EDT Reviewed history, allergies, and medications. Patient held his home medications prior to testing. Consent confirmed. Lexiscan exam explained. Placed patient on monitor. @ [address] technician here to inject Lexiscan. SOB noted during recovery phase. Denied chest pain.Few pvc's noted. Patient off monitor and instructed to eat, will have last part of exam in 1 hour. documented in this [facility] Phone: [phone]) 285-844006-21-2021 Hospital Discharge instructions* Instructions* Oscar Dickens MD - 02/17/2021 ICE AFFECTED AREA. WRAP FOR SUPPORT. RETURN FOR NEW OR WORSENING SYMPTOMS. * Attachments The following attachments cannot be sent through Care Everywhere. * Hand Pain (Bruneian) documented in this [facility] [employer] Phone: [phone] Telephone encounter Note* Telephone Encounter - Anita Hernandez LPN - 06/10/2015 8:[address] Barreto pt [id number] Miscellaneous Notes* Telephone Encounter - Anita Hernandez LPN - 06/10/2015 8:[address] Barreto pt documented in this [id number] Telephone encounter Note* Telephone Encounter - Nina Cameron LPN - 06/04/2015 3:42 PM EDT Med list updated [id number] Miscellaneous Notes* Telephone Encounter - Nina Cameron LPN - 06/04/2015 3:42 PM EDT Med list updated * Telephone Encounter - Briana Gan CNP - 06/03/2015 3:43 PM EDT No med list available documented in this [id number] Telephone encounter Note* Telephone Encounter - Briana Gan CNP - 06/03/2015 3:43 PM EDT No med list available [facility] Work Phone: Consult note Author Gonzalo Saucedo [facility] Note Date/Time April 25, 2025 4: 48pm [facility] Medical Records Department [address] [place] [address] Anesthesia Postop Eval I 04/25/251646 MR#: [id number] Acct: [id number] Name: RAMON COSTA Rep #:[id number] : 1955 69 From: Gonzalo Saucedo CRNA PCP: Jarad Rey MD Status:REG SDC Y Race: C Location: [place] [address] Anesthesia: Postop Eval I Current Vital Signs [...] by Gonzalo mccain CRNA> Date _ Gonzalo Sheryl 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 MACHINE OPERATOR Cosigner Signature: Date CC: ~ Signed [facility] Work Phone: Discharge summary Author James Andres [facility] Note Date/Time May 12, 2025 11:04am [facility] Medical Records Department [address] [place] [address] Emergency Department Summary 05/12/25 MR#: [id number] Acct: [id number] Name: RAMON COSTA Rep #:[id number] : 1955 69 From: James Andres MD PCP: Jarad Rey MD Status:REG ER Location: ED HPI History of Present Illness Chief Complaint: Complaint Informant: patient and spouse/S.O. Narrative Narrative: 69-year-old male having difficulty urinating. He states that started several days ago, he had a ureteral stent that was placed 1 week ago after having kidneystone cluster that was lasered/removed here by Dr. Lam. He saw him in the office 2 days ago because of the difficulty urinating so the stent was removed, but since then he has not been able to urinate on his own at all but if he self catheterizes himself, supplies given to him by urology in the past Dr. Bazan in [place], he is able to empty his bladder and he states he gets quite a bit of urine out and feels better until the next time he needs to go and is only able to dribble a little bit of urine without catheterizing himself. He states he isalready on Flomax for his prostate. No gross hematuria. [facility] Medical History Wears glasses Cancer Prostate disease [...] mg tablet 75 mg PO DAILY 04/13/2503/31 0 History cyanocobalamin (vitamin B-12) 1,000 mcg PO DAILY 04/1305/04/25 10:00 History 1,000 mcg capsule losartan 25 mg tablet 25 mg PO DAILY 04/13/2501/21 10:00 History niacinamide 500 mg tablet 500 mg PO DAILY 04/13/2501/21 10:00 History pantoprazole 40 mg tablet,delayed 40 mg PO DAILY 04/1305/04/25 10:00 History release ropinirole 1 mg tablet 1 mg PO QHS 04/13/25 5 22:00 History oxycodone 5 mg tablet 5 mg PO Q6H PRN pain 3 days #14 04/25/25 05/03/25 13:00 Rx tabs phenazopyridine 100 mg tablet 100 mg PO TID #20 tabs 0 04/25/25 05/04/25 10:00 Rx (Pyridium) tamsulosin 0.4 mg capsule (Flomax) 0.4 mg PO DAILY #14 caps 04/25/25 05/04/25 10:00 Rx ciprofloxacin HCl 500 mg tablet 500 mg PO BID #6 tabs 05/06/25 Unknown Rx (Cipro) oxycodone 5 mg tablet 5 mg PO Q6H PRN pain 3 days #10 05/06/25 Unknown Rx tabs phenazopyridine 100 mg tablet 100 mg PO TID #14 tabs 0 05/06/25 Unknown Rx (Pyridium) tamsulosin 0.4 mg capsule (Flomax) 0.4 mg PO DAILY #10 caps 05/06/25 Unknown Rx cephalexin 500 mg capsule 500 mg PO Q6 #20 CAPSULES Unknown Rx Allergy/AdvReac Type Severity Reaction Status Date / Time sulfamethoxazole (From AdvReac Intermediate Nausea/Vom/ Verified 05/12/25 10:07 Bactrim) Diarrhea trimethoprim (From Bactrim) AdvReac Intermediate Nausea/Vom/ Verified 05/12/25 10:07 Diarrhea Surgical History History of cardiac catheterization History of esophagogastroduodenoscopy (EGD) Hx of colonoscopy History of coronary artery stent placement Social History Smoking Status: Never smoker ROS ROS ED Constitutional Constitutional ED: Denies chills or fever(s) Eyes Eyes: Denies change in vision or diplopia ENT ENT ED: Denies rhinorrhea or sore throat Cardiovascular Cardiovascular: Denies chest pain or palpitations Respiratory/Chest Respiratory/Chest: Denies cough or dyspnea Gastrointestinal Gastrointestinal: Denies abdominal pain, diarrhea, nausea or vomiting Genitourinary Genitourinary ED: Reports difficulty urinating, dribbling and dysuria; Denies hematuria Musculoskeletal Musculoskeletal: Denies back pain or neck pain Integumentary Denies abscess or rash Neurologic Neurologic: Denies headache(s), paresthesias or weakness Psychiatric Psychiatric: Denies anxiety or suicidal thoughts EXAM Physical Exam Const Vital Signs: 05/12/25 10:06 Temperature 98 F Temperature Source Temporal Pulse Rate 76 Respiratory Rate 14 Blood Pressure 155/74 H Blood Pressure Mean 101 Pulse Ox 98 Oxygen Delivery Method Room Air Positive well nourished and well developed General Appearance ED: well developed and NAD HEENT Reports moist mucous membranes normocephalic and atraumatic Eyes PERRL and EOMs intact bilaterally Neck full ROM and supple Resp normal respiratory effort and clear to auscultation bilaterally Cardio regular rate, regular rhythm and no murmurs GI non-distended GI Narrative: Mild suprapubic tenderness, makes me feel like I need to urinate. No guardingor rebound, no other areas of tenderness. Auscultation: normoactive bowel sounds Palpation: soft Back/Spine no CVA tenderness General Back: other FROM Extremity normal to inspection General Extremety ED: Negative for edema, pulses abnormal or tenderness General Extremity: Negative for edema or pulses abnormal Neuro oriented x3, CN's II-XII intact bilaterally and no sensory deficits noted Sensorium / Orientation: awake and alert Motor Exam: strength 5/5 throughout Skin no rashes or lesions noted and no wounds MDM MDM MDM Narrative Medical decision making narrative: We did a bedside bladder scan, he was showing it was 300 cc so we placed a Foleycatheter, 300 cc of nonbloody urine was removed, the patient felt much better. He was not able to urinate prior to that. Send for urinalysis, showed some indicators for infection including nitrite but very little white blood cell, my suspicion is that it is not infected but I am going to place him on a 5-day course of cephalexin anyway since he recently had instrumentation of the urinarytract. Patient to follow-up with urology after the weekend, I sent a urine culture. As I discussed with the patient, I do not think that his urinary retention has anything to do with the stent that was put in or removed, I think this is probably more likely related to his prostate. Lab Data Attestation: I reviewed the patient's lab results. Labs: Laboratory Results - last 24 hr 05/12/25 10:38 Urine Color Yellow Urine Clarity Clear Urine pH 7.0 Ur Specific Knifley 1.005 Urine Protein 15 H Urine Glucose (UA) Normal Urine Ketones 5 H Urine Occult Blood 25 H Urine Nitrite Positive H Urine Bilirubin Negative Urine Urobilinogen 1 H Ur Leukocyte Esterase 25 H Urine RBC 0 SEEN Urine WBC 0-5 SEEN Ur Squamous Epith Cells 0 SEEN Urine Bacteria 0 SEEN Urine Mucus 0 SEEN Discharge Plan Triage Chief Complaint: Complaint ED Provider: James Andres Dx/Rx/DC Orders Clinical Impression: Acute urinary retention Instructions: ED Yan Catheter, Care, ED Urinary Retention, Male Prescriptions: New cephalexin 500 mg capsule 500 mg PO Q6 Qty: 20 0RF No Action atorvastatin 40 mg tablet 40 mg PO [...] (Reason: pain) 3 Days Qty: 14 0RF ciprofloxacin HCl [Cipro] 500 mg tablet 500 mg PO BID Qty: 6 0RF tamsulosin [Flomax] 0.4 mg capsule 0.4 mg PO DAILY Qty: 10 0RF phenazopyridine [Pyridium] 100 mg tablet 100 mg PO TID Qty: 14 0RF oxycodone 5 mg tablet 5 mg PO Q6H PRN (Reason: pain) 3 Days Qty: 10 0RF Primary Care Provider: Jarad Rey Referrals: Jarad Rey MD [Primary Care Provider] - Harjit Lam MD [Med Staff - Active Staff] - As soon as possible Print Language: Bruneian Disposition Disposition: Home, Self Care What to do if you have Problems For any increased pain, shortness of breath, bleeding, nausea or vomiting, chestpain, or any unexpected problems, contact your Primary Care Provider. Call [facility] ([phone]) or report to the closest Emergency Room. Call 911 if necessary. 05/12/25 1104 <Electronically signed by James Andres MD> Cosigner Signature (if applicable): CC: Dr. Harjit Lam MD; Jarad Rey MD ~ Signed [facility] Work Phone: Evaluation note* Diagnosis Right hand pain- Primary Pain in limb documented in this encounter [employer] Work Phone: evaluation note* Diagnosis THURMAN (dyspnea on exertion) Other dyspnea and respiratory abnormality documented in this encounter [employer] Phone: evaluation note* Diagnosis Annual physical exam Routine general medical examination at a health care facility Prostate cancer screening Special screening for malignant neoplasm of prostate documented in this encounter [employer] Phone: evaluation note* Diagnosis Multiple thyroid nodules Nontoxic multinodular goiter documented in this encounter [employer] Phone: evaluation note* Diagnosis SOB (shortness of breath) Shortness of breath documented in this encounter [employer] Phone: evaluation note* Diagnosis SOB (shortness of breath) Shortness of breath documented in this encounter [employer] Phone: evaluation note* Diagnosis Benign prostatic hyperplasia with lower urinary tract symptoms, symptom details unspecified Nocturia History of kidney stones documented in this encounter [facility] [employer] Phone: Evaluation note* Diagnosis History of kidney stones documented in this encounter [facility] [employer] Phone: [phone] note* Diagnosis Hematuria, unspecified type- Primary documented in this encounter [facility] [employer] Phone: [phone] note* Diagnosis Nocturia Benign prostatic hyperplasia with lower urinary tract symptoms, symptom details unspecified History of kidney stones Dysuria documented in this encounter [facility] [employer] Phone: [phone] note* Diagnosis Urinary retention- Primary Unspecified retention of urine Urinary tract infection with hematuria, site unspecified Nocturia Dysuria Benign prostatic hyperplasia with lower urinary tract symptoms, symptom details unspecified documented in this encounter [facility] [employer] Phone: [phone] note* Diagnosis Nocturia Dysuria Benign prostatic hyperplasia with lower urinary tract symptoms, symptom details unspecified documented in this encounter [facility] Work Phone: [phone] note* Diagnosis Benign prostatic hyperplasia with lower urinary tract symptoms, symptom details unspecified Dysuria History of kidney stones Nocturia Retention of urine Unspecified retention of urine documented in this encounter [facility] Work Phone: [phone] note* Diagnosis History of kidney stones Nocturia Benign prostatic hyperplasia with lower urinary tract symptoms, symptom details unspecified documented in this encounter [facility] [employer] Phone: [phone] note* Diagnosis Encounter for annual wellness exam in Medicare patient- Primary Encounter for immunization Need for other specified prophylactic vaccination against single bacterial disease Medicare annual wellness visit, subsequent Routine general medical examination at a health care facility Chronic obstructive pulmonary disease, unspecified COPD type (HCC) Malignant melanoma, unspecified site (HCC) Encounter for annual wellness exam in Medicare patient documented in this encounter [employer] note* Diagnosis History of kidney stones documented in this encounter [facility] Work Phone: Evaluation note* Diagnosis Benign prostatic hyperplasia with lower urinary tract symptoms, symptom details unspecified- Primary History of kidney stones Nocturia History of kidney stones documented in this encounter [facility] Work Phone: Evaluation note* Diagnosis History of kidney stones Benign prostatic hyperplasia with lower urinary tract symptoms, symptom details unspecified Nocturia documented in this encounter [facility] Work Phone: Evaluation note* Diagnosis Hemorrhagic cystitis- Primary Unspecified cystitis documented in this encounter [facility] Work Phone: Evaluation note* Diagnosis [...] Cholesterolosis of gallbladder documented in this encounter [employer] noteNo assessment information available [facility] Work Phone: Evaluation note* Diagnosis Ureteral calculus- Primary Calculus of ureter documented in this encounter [facility] Work Phone: Evaluation note* Diagnosis Encounter for annual wellness exam in Medicare patient- Primary Encounter for immunization Need for other specified prophylactic vaccination against single bacterial disease Medicare annual wellness visit, subsequent Routine general medical examination at a health care facility Chronic obstructive pulmonary disease, unspecified COPD type (HCC) Malignant melanoma, unspecified site (HCC) Medicare annual wellness visit, subsequent- Primary Routine general medical examination at a health care facility 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 - Recommend High-fiber diet, keep stools soft and regular, avoid constipation and straining, use Anusol/preparation H ointment/cream for hemorrhoids if/when symptomatic. - Follow up with primary care physician as previously scheduled * Attachments The following attachments cannot be sent through Care Everywhere. * Colonoscopy: [facility] (Bruneian) [facility]* Attachments The following attachments cannot be sent through Care Everywhere. * Urinary Tract Infection, Adult ED (Bruneian) * Yan Catheter (Bruneian) [facility] Discharge instructions* Attachments The following attachments cannot be sent through Care Everywhere. * Acute Cystitis Discharge Instructions (Bruneian) [facility] Work Phone: Reeqgm for referral (narrative)No reason for referral information [facility] Work Phone: Reason for visit Narrative* Imaging (Routine) - Authorized Specialty Diagnoses / Procedures Referred By Roxanne pearson Referred To Contact Radiology Diagnoses History of kidney stones Procedures XR abdomen 1 view Isabela Bazan MD [address] [place] [address] Phone: tel: fax: Referral ID Status Reason Start Date Expiration Date Visits Requested Visits Authorized [id number] Authorized Perform Procedure 4 07/25/2025 1 1 [facility] Work Phone: Relqnd for visit Narrative* Imaging (Routine) - Pending Review Specialty Diagnoses / Procedures Referred By Roxanne pearson Referred To Contact Radiology Diagnoses Gallbladder polyp Procedures US GALLBLADDER RUQ Kaylynn Payne MD [address] [address] Phone: tel: fax: Referral ID Status Reason Start Date Expiration Date V isits Requested Visits Authorized [id number] Pending Review 04/26/2025 04/26/2026 1 1 Tom Wright [facility] Assessments Diagnosis Bradycardia Other specified cardiac dysrhythmias Coronary artery disease invo lving chilkat coronary artery of chilkat heart without angina pectoris Dyslipidemia Other and [...] FoundDocuments on File Type Date Recorded Patient Nurse Executive Expl anation Advance Directives and Living Will Power of Principal Account Clerk Latest Code Status on File Code Status Date Activated Date Inactivated Comments Full Code 03/28/2018 5:49 PM 03/28/2018 8:48 PM Full Code 03/28/2018 11:18 AM 03/28/2018 1:58 PM Documents on File Type Date Recorded Patient Nurse Executive Expl anation ACP-Advance Directive ACP-Power of Principal Account Clerk Latest Code Status on File Code Status Date Activated Date Inactivated Comments Full Code 03/28/2018 5:49 PM 03/28/2018 8:48 PM Full Code 03/28/2018 11:18 AM 03/28/2018 1:58 PM Documents on File Type Date Recorded Patient Nurse Executive Expl anation Advance Directives and Living Will Power of Principal Account Clerk Documents on File Type Date Recorded Patient Nurse Executive Expl anation ACP-Advance Directive ACP-Power of Principal Account Clerk Healthcare Agents on File Name Relationship Healthcare Agent Relationshi p Communication Jeanne Costa Spouse Primary Decision Maker Healthcare Agents on File Name Relationship Healthcare Agent Relationshi p Communication Jeanne Costa Spouse Primary Decision Maker Healthcare Agents on File Name Relationship Healthcare Agent Relationshi p Communication Jeanne Costa Spouse Primary Decision Maker [email or web address] Date Activated Date Inactivated Comments 08/17/2023 10:27 AM 08/17/2023 2:59 PM Date Activated Date Inactivated Comments 03/28/2018 5:49 PM 03/28/2018 8:48 PM Date Activated Date Inactivated Comments 03/28/2018 11:18 AM 03/28/2018 1:58 PM Healthcare Agents on File Name Relationship Healthcare Agent Relationshi p Communication Jeanne Costa Spouse Primary Decision Maker [email or web address] Date Activated Date Inactivated Comments 08/17/2023 10:27 AM 08/17/2023 2:59 PM Date Activated Date Inactivated Comments 03/28/2018 5:49 PM 03/28/2018 8:48 PM Date Activated Date Inactivated Comments 03/28/2018 11:18 AM 03/28/2018 1:58 PM Healthcare Agents on File Name Relationship Healthcare Agent Panchohi p Communication Jeanne Costa Spouse Primary Decision Maker [email or web address] Advance Directive Response Recorded Date/ Time Do you have a Healthcare Power of Principal Account Clerk? Yes April 13, 2025 1:21pm Advance Directive Response Recorded Date/ Time Do you have a Healthcare Power of Principal Account Clerk? Yes April 13, 2025 1:21pm Do you have a Healthcare Power of Principal Account Clerk? Yes May 05, 2025 4:33am Name of Medical Power of Principal Account Clerk Brittani Tracy May 05, 2025 4:33am Advance Directive Response Recorded Date/ Time Do you have a Healthcare Pow er of Principal Account Clerk? Yes April 13, 2025 1:21pm Do you have a Healthcare Pow er of Principal Account Clerk? Yes May 05, 2025 4:33am Name of Medical Power of Principal Account Clerk Brittani Isauropres May 05, 2025 4:33am Do you have a Healthcare Pow er of Principal Account Clerk? No May 12, 2025 11:13am Healthcare Agents on File Name Relationship Healthcare Agent Relationshi p Communication Jeanne Costa Spouse Primary Decision Maker [email or web address] Reason for Referral Status Reason Specialty Diagnoses / Procedures Referred By Contact Referred To Contact Pending Review Cardiology Diagnoses PVC (premature ventricular contraction) Procedures Holter monitor 24 hour Brain Freedman MD [address] [place] [id number] Status Reason Specialty Diagnoses / Procedures Referre d By Contact Referred To Contact Closed Cardiology Diagnoses THURMAN (dyspnea on exertion) Procedures ECHO Complete 2D W Doppler W Color Justin Espino[facility] [address] [place] [address] Status Reason Specialty Diagnoses / Procedures Referre d By Contact Referred To Contact Closed Radiology Diagnoses THURMAN (dyspnea on exertion) Procedures NM MYOCARDIAL SPECT [place]ERC[place] [address] [place] [address] [address] [place] [address] Specialty Diagnoses / Procedures Referred By Contac t Referred To Contact Radiology Diagnoses History of kidney stones Procedures XR abdomen 1 view Isabela Bazan MD [facility] [place] [address] Referral ID Status Reason Start Date Expiration Date Visits Requested Visits Authorized [id number] Authorized Perform Procedure 10/07/2023 10/06/2024 1 1 Specialty Diagnoses / Procedures Referred By Contac t Referred To Contact Radiology Diagnoses History of kidney stones Procedures XR abdomen 1 view Isabela Bazan MD [address] [place] [address] [facility] [address] [facility] [address] [place] [address] Specialty Diagnoses / Procedures Referred By Contac t Referred To Contact Diagnoses History of kidney stones Isabela Bazan MD [address] [phone] Referral ID Status Reason Start Date Expiration Date V isits Requested Visits Authorized [id number] Pending Review 1 1 Referral ID Status Reason Start Date Expiration Date Visits Requested Visits Authorized [id number] Authorized Perform Procedure 02/23/2024 02/22/2025 1 1 Referral ID Status Reason Start Date Expiration Date Visits Requested Visits Authorized [id number] Authorized Perform Procedure 02/23/2024 02/22/2025 1 1 Chief Complaint and Reason for Visit Chief Complaint Admit Date ESWL,Cystocopy Insertion Stent April 252024 10:55am Reason for Visit Admit Date Calculus of kidney May 05, 2025 9:48am Chief Complaint Admit Date ESWL,Cystocopy Insertion Stent April 252024 10:55am RETENTION May 12, 2025 10:05am Additional Source Comments (unrecognized sect ion and [...] section and content) DATE CREATED AUTHOR 02/22/2018 [facility] DATE CREATED AUTHOR AUTHOR'S ORGANIZ ATION 04/11/2018 [facility] DATE CREATED AUTHOR AUTHOR'S ORGANIZ ATION 05/07/2018 [facility] DATE CREATED AUTHOR AUTHOR'S ORGANIZ ATION 06/09/2018 [facility] DATE CREATED AUTHOR AUTHOR'S ORGANIZ ATION 06/14/2018 [facility] DATE CREATED AUTHOR AUTHOR'S ORGANIZ ATION 06/14/2018 [employer] DATE CREATED AUTHOR AUTHOR'S ORGANIZ ATION 06/21/2018 [facility] DATE CREATED AUTHOR AUTHOR'S ORGANIZ ATION 01/05/2023 [facility] DATE CREATED AUTHOR AUTHOR'S ORGANIZ ATION 08/20/2023 [facility] DATE CREATED AUTHOR AUTHOR'S ORGANIZ ATION 09/19/2023 [facility] DATE CREATED AUTHOR AUTHOR'S ORGANIZ ATION 11/13/2023 [facility] DATE CREATED AUTHOR AUTHOR'S ORGANIZ ATION 09/16/2024 [facility] DATE CREATED AUTHOR AUTHOR'S ORGANIZ ATION 05/11/2025 [facility] DATE CREATED AUTHOR AUTHOR'S ORGANIZ ATION 06/03/2025 [facility] DATE CREATED AUTHOR AUTHOR'S ORGANIZ ATION 06/29/2025 [facility] Reason for Visit (unrecogniz ed section and content) Status Reason Specialty Diagnoses / Procedures Referred By Contact Referred To Contact Pending Review Cardiology Diagnoses PVC (premature ventricular contraction) Procedures Holter monitor 24 hour Brain Freedman MD [address] [place] [address] Status Reason Specialty Diagnoses / Procedures Referre d By Contact Referred To Contact Open EKG Diagnoses Ventricular premature depolarization Procedures HC HOLTER MONITOR Brain Freedman MD [address] [place] [address] [facility] [address] [place] [address] Reason Comments Hand Injury right hand pain and swelling x1hr s/p fall while playing basketball. motor and sensation intact, some numbness. On plavix. Status Reason Specialty Diagnoses / Procedures Referre d By Contact Referred To Contact Closed Radiology Diagnoses THURMAN (dyspnea on exertion) Procedures NM MYOCARDIAL SPECT REST EXERCISE OR RX Justin Espinoza MD [address] [address] Status Reason Specialty Diagnoses / Procedures Referre d By Contact Referred To Contact Closed Cardiology Diagnoses THURMAN (dyspnea on exertion) Procedures ECHO Complete 2D W Doppler W Color Justin Espinoza MD [address] [address] Status Reason Specialty Diagnoses / Procedures Referre d By Contact Referred To Contact Diagnoses Personal history of colonic polyps HISTORY OF COLON POLYPS Procedures HI COLONOSCOPY FLX DX W/COLLJ SPEC WHEN PFRMD COLONOSCOPY Familia Oliva MD [address] [place] [address] [facility] Reason Comments Medication Refill Reason Comments Establish Care Specialty Diagnoses / Procedures [facility] Referred To Contact Radiology Diagnoses History of kidney stones Procedures XR abdomen 1 view Isabela Bazan MD [address] [place] [address] [facility] [address] D[address] [place] [address] Referral ID Status Reason Start Date Expiration Date Visits Requested Visits Authorized [id number] Authorized Perform Procedure 10/07/2023 10/06/2024 1 1 [...] abdomen 1 view Isabela Bazan MD [address] [place] [address] Referral ID Status Reason Start Date Expiration Date Visits Requested Visits Authorized [id number] Authorized Perform Procedure 02/23/2024 02/22/2025 1 1 [...] Care Teams (unrecognized sec tion and content) Bar Roller Relationship Specialty Start Date End Date Jarad Rey MD [address] [place] [address] PCP - General Family Medicine 01/13/18 Bar Roller Relationship Specialty Start Date End Date Jarad Rey MD [address] [place] [address] PCP - General Family Medicine 01/13/18 Bar Roller Relationship Specialty Start Date End Date Jarad Rey MD [address] [place] [address] PCP - General Family Medicine 01/13/18 Bar Roller Relationship Specialty Start Date End Date Aramis Beaulieu MD [address] [place] [address] PCP - General 12/12/12 Bar Roller Relationship Specialty Start Date End Date Aramis Beaulieu MD [address] [place] [address] PCP - General 12/12/12 Bar Roller Relationship Specialty Start Date End Date Jarad Rey MD [address] [place] [address] PCP - General 08/30/17 Bar Roller Relationship Specialty Start Date End Date Jarad Rey MD [address] [place] [address] PCP - General 08/30/17 Bar Roller Relationship Specialty Start Date End Date Jarad Rey MD [address] [place] [address] PCP - General 08/30/17 Bar Roller Relationship Specialty Start Date End Date Jarad Rey MD [address] [place] [address] PCP - General 08/30/17 Bar Roller Relationship Specialty Start Date End Date Jarad Rey MD [address] [place] [address] PCP - General 08/30/17 Bar Roller Relationship Specialty Start Date End Date Jarad Rey MD [address] [place] [address] PCP - General 08/30/17 Bar Roller Relationship Specialty Start Date End Date Jarad Rey MD [address] [place] [address] PCP - General 08/30/17 Bar Roller Relationship Specialty Start Date End Date Jarad Rey MD [address] [place] [address] PCP - General 08/30/17 Bar Roller Relationship Specialty Start Date End Date Jarad Rey MD [address] [place] [address] PCP - General Family Medicine 01/13/18 Bar Roller Relationship Specialty Start Date End Date Jarad Rey MD [address] [place] [address] PCP - General 08/30/17 Bar Roller Relationship Specialty Start Date End Date Jarad Rey MD [address] [place] [address] PCP - General 08/30/17 Bar Roller Relationship Specialty Start Date End Date Jarad Rey MD [address] [place] [address] PCP - General 08/30/17 Bar Roller Relationship Specialty Start Date End Date Jarad Rey MD [address] [place] [address] PCP - General 08/30/17 Bar Roller Relationship Specialty Start Date End Date Jarad Rey MD [address] [place] [address] PCP - General Family Medicine 01/13/18 Team Status: Active Member Role/Relationship Status Dates Dr. Jarad Rey MD Primary Care Provider Active Team Status: Inactive Member Role/Relationship Status Dates Dr. Jarad Rey MD Primary Care Provider Active Start: April 10, 2025 End: April 10, 2025 Melba [place] Attending Provider Active Start : April 10, 2025 End: April 10, 2025 Melba [place] Referring Provider Active Start : April 10, [...] April 25, 2025 End: April 25, 2025 Bar Roller Relationship Specialty Start Date End Date Jarad Rey MD [address] [place] [address] PCP - General 08/30/17 Team Status: Inactive Member Role/Relationship Status Dates Dr. Jarad Rey MD Primary Care Provider Active Start: May 05, 2025 End: May 06, 2025 Dr. Harjit Lam MD Admit Provider Active Start: May 05, 2025 End: May 06, 2025 Dr. Harjit Lam MD Attending Provider Active Start: May 05, 2025 End: May 06, 2025 Team Status: Inactive Member Role/Relationship Status Dates Dr. Jarad Rey MD Primary Care Provider Active Start: May 12, 2025 End: May 12, 2025 Dr. James Andres MD Emergency Provider Active Start: May 12, 2025 End: May 12, 2025 Bar Roller Relationship Specialty Start Date End Date Jarad Rey MD [address] [place] [address] PCP - General Family Medicine 01/13/18 Scheduled Active and Recently Administ ered Medications (unrecognized section and content) Medication Order 11/07/2023 11/08/2023 11/09/2023 cephalexin (Keflex) capsule 500 mg (COMPLETED) 500 mg, oral, Once, On e 11/09/23 at 2019, For 1 dose, Suspected Indication [...] Infection 2338 (New Bag - Provider: Miko Marquez, RAFAL) 0041 (Stopped - Provider: Miko Marquez, RAFAL) [...] On 05/05/25 at 0110, For 1 dose 013 (Given - Provid er: Mitchell Pete RN) ondansetron (Zofran) injection 4 mg (COMPLETED) 4 mg, intravenous, Once, On Wed05/04/25 at 2210, For 1 dose, When administering via IV Push, administer over 3-5 minutes. 2229 (Given - Provider: Yvette Fraser RN) sodium [...] BE BASED ON THE PRIMARY CLINICAL RECORDS. [employer] provides no warranty or guarantee of the accuracy or completeness of information in this document.
[2025-08-05 11:22] LABS: Anion Gap 10 (5-15); BUN 12 mg/dL (4-19); BUN/Creat Ratio 12.0 RATIO (10-20); Calcium,Total 9.4 mg/dL (7.6-11.0); Carbon Dioxide 26.0 mmol/L (21.0-32.0); Chloride 103 mmol/L (98-108); Estimated Creatinine Clearance 83.91 ml/min (50-250); Glucose 98 mg/dL (70-99); Potassium 3.5 mmol/L (3.3-5.1)
[2025-08-05 11:50] VITALS: BP 147/72; PULSE 56; RESP 14; TEMP 36.8; O2SAT 97
[2025-08-05] MEDS: HYDROcodone Bitartrate/Apap 5/325 Tablet PO (11:57)
== END 2025-08-05 12:19 | disposition home or self-care (01) ==
PROVIDERS: Emergency Provider Emergency Medicine; PCP Family Medicine; Visit Provider Emergency Medicine
DX: N20.0 Calculus of kidney (principal); I10 Essential (primary) hypertension; E78.00 Pure hypercholesterolemia, unspecified; Z95.5 Presence of coronary angioplasty implant and graft; Z79.02 Long term (current) use of antithrombotics/antiplatelets; Z79.899 Other long term (current) drug therapy
CPT/HCPCS: 74176; 80048; 81001; 85025; 96361; 96374; 96375; 99283; J2405